=== PATIENT | male | born 1975 | race Two or more races ===

== ENCOUNTER 2020-10-23 12:22 | Outpatient (REF) | payer MEDICARE, MEDICAID, SELFPAY | END 2020-10-23 12:23 | disposition home or self-care (01) | LOC: HO.LAB 12:22 | PROVIDERS: Visit Provider Internal Medicine | DX: Z20.828 Contact with and (suspected) exposure to other viral communicable diseases (principal) | CPT/HCPCS: C9803; U0003 ==

== ENCOUNTER 2020-10-28 15:00 | Outpatient (REF) | payer MEDICARE, MEDICAID, SELFPAY | END 2020-10-28 15:01 | disposition home or self-care (01) | LOC: HO.LAB 15:00 | PROVIDERS: PCP Internal Medicine; Visit Provider Internal Medicine | DX: Z20.828 Contact with and (suspected) exposure to other viral communicable diseases (principal) | CPT/HCPCS: C9803; U0003 ==

== ENCOUNTER 2020-11-27 09:20 | Outpatient (REF) | payer OTHER, SELFPAY | END 2020-11-27 09:21 | disposition home or self-care (01) | LOC: HO.LAB 09:20 | PROVIDERS: Visit Provider Internal Medicine | DX: Z20.822 Contact with and (suspected) exposure to COVID-19 (principal) | CPT/HCPCS: 36415; C9803; U0003 ==

== ENCOUNTER 2020-11-29 09:43 | Emergency (ER) | payer OTHER, SELFPAY ==
[2020-11-29 09:49] VITALS: BP 147/82; PULSE 56; RESP 16; TEMP 37.1; O2SAT 98; BMI 32.5
--- NOTE | 2020-11-29 10:09 | ECG_ITS ---
Test Reason : CHEST TIGHTNESS Blood Pressure : / mmHG Vent. Rate : 053 BPM Atrial Rate : 053 BPM P-R Int : 140 ms QRS Dur : 100 ms QT Int : 392 ms P-R-T Axes : 057 -06 001 degrees QTc Int : 367 ms Sinus bradycardia Minimal voltage criteria for LVH, may be normal variant Borderline ECG When compared with ECG of 17-FEB-2020 08:32, No significant change was found Referred By: Jason Covarrubias Electronically Signed By:FRANCISCO POSEY MD
--- NOTE | 2020-11-29 10:09 | XR_ITS ---
EXAMINATION: XR CHEST CLINICAL INFORMATION: Cough COMPARISON: Previous chest x-ray and chest CT February 2020 TECHNIQUE: Frontal view of the chest was obtained. FINDINGS: No significant abnormality is noted involving the heart, lungs, mediastinum, bony thorax or soft tissues. XR/XR chest 1V IMPRESSION: Unremarkable examination.
--- NOTE | 2020-11-29 11:02 | ED.GENADULT ---
HPI - General Adult General Chief complaint: General Medical Stated complaint: covid +, cough, associated pain Time Seen by Provider: 11/29/20 10:09 Source: patient Mode of arrival: ambulatory Limitations: no limitations History of Present Illness HPI narrative: 45-year-old male who denies any significant past medical history reports that he was tested positive for COVID-19 7 days ago his symptoms were much more severe initially he started to feel better he did a follow-up call with his primary care doctor today told him he is feeling better however he still has a cough and with associated chest pain given his complaints during tele visit he was advised to come to the emergency room. He reports to me that he is overall feeling much better. Denies any fever or chills. No shortness of breath on exertion. Does report cough that continues now with slight sputum that is clear but no fever or chills. No abdominal pain nausea vomiting or diarrhea. Onset (ago): day(s) Severity: mild Pain Consistency: intermittent Associated symptoms: chest pain and cough Related Data Home Medications Medication Instructions Recorded Confirmed pantoprazole 20 mg tablet,delayed 20 mg PO DAILY 10/23/20 11/20/20 release Previous Rx's Medication Instructions Recorded glipizide 5 mg tablet 5 mg PO DAILY #90 tab 09/01/20 amoxicillin 250 mg capsule 250 mg PO Q8H #30 cap 10/23/20 cholecalciferol (vitamin D3) 1,250 1,250 mcg PO Q4W #90 cap 10/31/20 mcg (50,000 unit) capsule lisinopril 10 mg tablet 10 mg PO DAILY #90 tab 11/17/20 esomeprazole magnesium 40 mg 40 mg PO DAILY #30 cap 11/20/20 capsule,delayed release albuterol sulfate 2 inh INHALATION Q4-6H PRN #1 ea 11/29/20 azithromycin [Zithromax Z-Rufus] 250 mg PO DAILY 5 Days #6 tab 11/29/20 Allergies Allergy/AdvReac Type Severity Reaction Status Date / Time sulfamethoxazole Allergy Mild RASH Verified 11/20/20 11:34 [From BACTRIM] trimethoprim [From BACTRIM] Allergy Mild RASH Verified 11/20/20 11:34 fish Allergy Unknown rash, Verified 11/20/20 11:34 redness morphine [MORPHINE] Allergy Unknown NAUSEA & Verified 11/20/20 11:34 VOMITING, vomiting Sulfa (Sulfonamide Allergy Unknown rash Verified 11/20/20 11:34 Antibiotics) Fish Containing Products AdvReac Unknown WORSENS Verified 11/20/20 11:34 GOUT SYMPTOMS Review of Systems Review of Systems: Constitutional: No Weight loss, No Fever, No Chills, No Night Sweats, No Fatigue, No Malaise ENT/Mouth: No Hearing loss, No Ear Pain, No Nasal Congestion, No Sinus Pain, No Hoarseness, No sore throat, No Rhinorrhea, No Swallowing Difficulty Eyes: No Eye Pain, No Swelling, No Redness, No Foreign Body, No Discharge, No Vision Changes Cardiovascular: No SOB, No Dyspnea on Exertion, No Orthopnea, No Edema, No Palpitations Respiratory: + Cough, + Sputum, No Wheezing, No Smoke Exposure, No Dyspnea Gastrointestinal: No Nausea, No Vomiting, No Diarrhea, No Constipation, No abdominal Pain, No Hematochezia, No Melena Genitourinary: No Dysuria, No Urinary Frequency, No Hematuria, No Urinary Incontinence, No Urgency, No Flank Pain Musculoskeletal: No joint pain, No Myalgias, No Joint Swelling Skin: No Skin Lesions, No rash Neuro: No Weakness, No Numbness, No Paresthesias, No Loss of Consciousness, No Dizziness, No Headache Psych: No Social Issues Heme/Lymph: No Bruising, No Bleeding,No Lymphadenopathy Endocrine: No Polyuria, No Polydipsia, No Temperature Intolerance Yes all other systems are reviewed and are negative [facility] Past Medical History Medical History (Updated 11/29/20 @ 11:14 by Jason Covarrubias NP) Chronic GERD Surgical History H/O total hip arthroplasty H/O wrist surgery History of tonsillectomy History of umbilical hernia repair History of wisdom tooth extraction Family History Family History Father No problems noted. Mother Colon cancer Diabetes Hypertension Family/Other Diabetes Hypertension Social History Social History (Updated 11/20/20 @ 11:36 by Oscar Diaz) Alcohol intake: never Smoking Status: Never smoker Use of substances other than those prescribed or required for medical reasons: No Advance Directives: No Advance Directives Information Provided: No Physical Exam Vital Signs: Vital Signs: Last Vital Signs Temp 98.8 F 11/29/20 09:49 Pulse 56 11/29/20 09:49 Resp 16 11/29/20 09:49 BP 147/82 H 11/29/20 09:49 Pulse Ox 98 11/29/20 09:49 Body Mass Index 32.5 Reviewed Const: General: cooperative and healthy appearing; No acute distress or intoxicated appearing Nutritional Appearance: average body habitus Orientation/consciousness: patient oriented x3 HENMT: Head: Yes normal to inspection Ears: hearing grossly normal bilaterally Eyes: General: appearance normal, both eyes and all related structures Visual Guadalupe: normal visual guadalupe by confrontation Neck: Neck: Yes normal visual inspection, No positive Brudzinski's sign, No positive Kernig's sign and No tender Thyroid: Thyroid normal Chest: Chest palpation & inspection: normal inspection of the chest Resp: Effort & Inspection: normal respiratory effort Auscultation: clear to auscultation bilaterally Cardio: Jugular venous distension: no JVD Rate: regular rate Rhythm: regular rhythm Heart sounds: S1 normal heart sound present and S2 normal heart sound present GI: Inspection: Yes normal to inspection Percussion: Yes normal to percussion Auscultation: normal bowel sounds : General: Yes no CVA tenderness Back/Spine/Pelvis: Back: no CVA tenderness Skin: General skin exam: no rashes or lesions noted Neuro: General: patient oriented x3 Extrem: General: Yes normal to inspection Course Course Course Narrative: Has remained stable in the ED. He medically stable. Pulse ox remains at 99-100% on room air. EKG nondiagnostic, chest x-ray negative. Will discharge home with azithromycin, supportive Care return follow-up instructions. Agree with plan. Stable for discharge. Medical Decision Making [facility] Narrative Medical decision making narrative: In review 45-year-old male who reports no significant past medical history in review of chart he does have history of gastroesophageal reflux disease and surgical history of tonsillectomy, abdominal hernia repair, hip and wrist surgery who tested positive for COVID-19 6 days ago feels he is on the better side of his symptoms now feeling much better however has a cough with clear sputum with associated chest wall pain only during coughs called his primary care doctor today given his symptoms per patient told him that he might need a chest x-ray advised to come to the emergency room given Tuesday. He denies any pain or discomfort at this time states mild cough intermittently. He is hemodynamically stable upon arrival vitals show pulse ox of 99%, heart rate of 83 and respiratory rate of 14. Given his recent COVID diagnosis and continued cough will get a chest x-ray to rule out underlying developing viral/bacterial pneumonia, EKG. 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 FINDINGS: No significant abnormality is noted involving the heart, lungs, mediastinum, bony thorax or soft tissues. XR/XR chest 1V IMPRESSION: Unremarkable examination. 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 ECG Data Interpretation: Sinus bradycardia Minimal voltage criteria for LVH, may be normal variant Borderline ECG When compared with ECG of 17-FEB-2020 08:32, No significant change was f Discharge Plan Discharge Clinical Impression: Cough, COVID-19 Patient Disposition: Home, Self-Care Instructions: Acute Cough (ED), COVID-19 (Coronavirus Disease 2019) (ED) Additional Instructions: Drink plenty fluids Isolate yourself Social distancing Quarantine herself until at least 3 days symptom-free Return to the emergency room if any concerns or worsening symptoms otherwise follow-up with her primary care doctor as discussed Thank you Prescriptions: New azithromycin [Zithromax Z-Rufus] 250 mg tablet 250 mg PO DAILY 5 Days Qty: 6 RF: 0 albuterol sulfate 90 mcg/actuation aero powdr breath act w/sensor 2 inh inhalation Q4-6H PRN (Reason: shortness of breath or wheezing) Qty: 1 RF: 0 No Action glipizide 5 mg tablet 5 mg PO DAILY Qty: 90 RF: 8 cholecalciferol (vitamin D3) 1,250 mcg (50,000 unit) capsule 1,250 mcg PO Q4W Qty: 90 RF: 8 lisinopril 10 mg tablet 10 mg PO DAILY Qty: 90 RF: 8 esomeprazole magnesium [Nexium] 40 mg capsule,delayed release(DR/EC) 40 mg PO DAILY Qty: 30 RF: 8 pantoprazole 20 mg tablet,delayed release (DR/EC) 20 mg PO DAILY RF: 0 amoxicillin 250 mg capsule 250 mg PO Q8H Qty: 30 RF: 0 Referrals: Da Eckert MD [Primary Care Provider] - 1 week
== END 2020-11-29 11:31 | disposition home or self-care (01) ==
PROVIDERS: Emergency Provider Emergency Medicine Emergency Medical Services; PCP Internal Medicine
DX: U07.1 COVID-19 (principal); R05 Cough; R07.9 Chest pain, unspecified; Z79.899 Other long term (current) drug therapy
CPT/HCPCS: 71045; 93005; 99283

== ENCOUNTER 2020-12-01 02:42 | Emergency (ER) | payer OTHER, SELFPAY ==
[2020-12-01 02:53] VITALS: BP 138/75; PULSE 56; RESP 14; TEMP 37.3; O2SAT 97; BMI 36.0
--- NOTE | 2020-12-01 04:22 | ED_ITS ---
HPI - Abdominal Pain General Chief Complaint: Abdominal Pain Stated Complaint: Acid Reflux Time Seen by Provider: 12/01/20 03:56 Source: patient Mode of arrival: ambulatory History of Present Illness HPI narrative: This is a 45-year-old male with history GERD, and a diagnosed with COVID-19 approximately 6 days ago who presents with worsening epigastric burning that extends up into the central part of his chest that he states has not improved at all after being started on omeprazole. Otherwise, he denies fevers, chills, body aches, shortness of breath, but states that his abdomen has become more distended and he has been eating ?a lot of bananas?. Otherwise, he denies any urinary pain/burning/frequency, nausea, vomiting. Related Data Home Medications Medication Instructions Recorded Confirmed pantoprazole 20 mg tablet,delayed 20 mg PO DAILY 10/23/20 11/20/20 release Previous Rx's Medication Instructions Recorded glipizide 5 mg tablet 5 mg PO DAILY #90 tab 09/01/20 amoxicillin 250 mg capsule 250 mg PO Q8H #30 cap 10/23/20 cholecalciferol (vitamin D3) 1,250 1,250 mcg PO Q4W #90 cap 10/31/20 mcg (50,000 unit) capsule lisinopril 10 mg tablet 10 mg PO DAILY #90 tab 11/17/20 esomeprazole magnesium 40 mg 40 mg PO DAILY #30 cap 11/20/20 capsule,delayed release albuterol sulfate 2 inh INHALATION Q4-6H PRN #1 ea 11/29/20 azithromycin [Zithromax Z-Rufus] 250 mg PO DAILY 5 Days #6 tab 11/29/20 amoxicillin-pot clavulanate 1 tab PO Q12H 7 Days #14 tab 12/01/20 [Augmentin] doxycycline hyclate 100 mg PO BID 7 Days #14 cap 12/01/20 Allergies Allergy/AdvReac Type Severity Reaction Status Date / Time sulfamethoxazole Allergy Mild RASH Verified 11/20/20 11:34 [From BACTRIM] trimethoprim [From BACTRIM] Allergy Mild RASH Verified 11/20/20 11:34 fish Allergy Unknown rash, Verified 11/20/20 11:34 redness morphine [MORPHINE] Allergy Unknown NAUSEA & Verified 11/20/20 11:34 VOMITING, vomiting Sulfa (Sulfonamide Allergy Unknown rash Verified 11/20/20 11:34 Antibiotics) Fish Containing Products AdvReac Unknown WORSENS Verified 11/20/20 11:34 GOUT SYMPTOMS Review of Systems Review of Systems Pertinent positives and negatives as stated in HPI 10 point review of systems is otherwise negative. Physical Exam Vital Signs: Vital Signs: Last Vital Signs Temp 99.1 F 12/01/20 02:53 Pulse 56 12/01/20 02:53 Resp 14 12/01/20 02:53 BP 138/75 12/01/20 02:53 Pulse Ox 97 12/01/20 02:53 Body Mass Index 36.0 VITAL SIGNS: Reviewed. GENERAL: Well developed, well nourished, in no acute distress. HEAD: Normocephalic/atraumatic, EYES: PERRLA, EOMI EARS: Ext canals without abnormality NOSE: Nares patent bilateral OROPHARYNX: no oral lesions noted, posterior pharynx clear NECK: Supple, no adenopathy LUNGS: Normal breath sounds. No adventitious sounds or accessory muscle use. SpO2<97> CARDIOVASCULAR: Regular rate and rhythm without noted murmurs ABDOMEN: Obese, Soft, non-tender, non-distended with bowel sounds. NEUROLOGIC: Alert and oriented x 4. Course Course Course Narrative: This is a 45-year-old male with history and clinical presentation suggestive of poorly controlled acid reflux and possible constipation however will evaluate for intrathoracic pathology such as PE, pneumonia. Review of all investigations is negative for any acute findings other than el evated D-dimer with corresponding CT angio negative for evidence of VTE. CT scan is reading areas peripheral consolidation consistent with an infectious process and despite the lack leukocytosis patient will be discharged with a course of antibiotics. On re-evaluation patient states he has had good symptom control with the GI cocktail and despite being on omeprazole he will be recommended to start Mylanta prior to meals. MDM - Abdominal Pain Lab Data Result diagrams: 12/01/20 04:36 12/01/20 04:36 Labs: Lab Results 12/01/20 12/01/20 12/01/20 Range/Units 04:36 04:36 04:36 WBC 6.7 (4.8-10.8) X10*3/uL RBC 4.89 (4.60-5.80) X10*6/uL Hgb 14.1 (14.0-18.0) g/dl Hct 40.8 L (42-52) % MCV 83.4 (80-98) fL MCH 28.8 (27.0-33.0) pg MCHC 34.6 (31.0-36.0) g/dl RDW 12.5 (11.0-16.0) % Plt Count 224 (160-400) X10*3/uL MPV 10.3 (9.4-12.4) fL Immature Gran % (Auto) 0.1 (0.0-0.4) % Neut % (Auto) 64.0 (45-73) % Lymph % (Auto) 25.1 (20-40) % Taney % (Auto) 10.0 (2-11) % Eos % (Auto) 0.7 (0-4) % Baso % (Auto) 0.1 (0-2) % Lymph # (Auto) 1.7 (1.2-4.9) X10*3/uL Taney # (Auto) 0.7 (0.1-1.2) X10*3/uL Eos # (Auto) 0.1 (0.0-0.4) X10*3/uL Baso # (Auto) 0.0 (0.0-0.2) X10*3/uL Abs Immat Gran (auto) 0.01 (0.00-0.03) X10*3/uL Absolute Neuts (auto) 4.3 (2.0-8.3) X10*3/uL Absolute Nucleated RBC 0.000 (0.0-0.012) X10*3/uL Nucleated RBC % (auto) 0.0 (0.0-0.2) /100WBC D-Dimer 516 NG/ML Sodium 137 (135-145) mmol/L Potassium 4.4 (3.3-5.1) mmol/l Chloride 100 (96-108) mmol/L Carbon Dioxide 27 (22-29) mmol/L Anion Gap 14 (12-20) BUN 14 (9-16) mg/dL Creatinine 1.14 (0.5-1.4) mg/dL Estim Creat Clear Calc 92.2 Estimated GFR > 60 Random Glucose 179 H (60-115) mg/dL Calcium 9.2 (8.4-10.2) mg/dL Total Bilirubin 0.4 (0.0-1.0) mg/dL AST 24 (5-37) U/L ALT 39 (0-40) U/L Alkaline Phosphatase 63 (39-117) U/L Total Protein 7.4 (6.5-8.0) g/dL Albumin 4.4 (3.5-5.0) g/dL Lipase 21 (8-78) U/L Discharge Plan Discharge Clinical Impression: Chronic GERD Pneumonia Qualifiers: Pneumonia type: due to unspecified organism Laterality: bilateral Lung locati on: unspecified part of lung Qualified Code(s): J18.9 - Pneumonia, unspecified organism Patient Disposition: Home, Self-Care Instructions: Diet for Stomach Ulcers and Gastritis (ED), Gastroesophageal Reflux Disease (ED) Additional Instructions: 1. Recommend that she utilize [id number] Mylanta prior to each meal in addition to your prescribed omeprazole that you take daily. 2. Resume all home medications as prescribed. And follow-up with your primary care provider. Do not hesitate to return to the emergency room she developed acute worsening of your symptoms. Prescriptions: New doxycycline hyclate 100 mg capsule 100 mg PO BID 7 Days Qty: 14 RF: 0 amoxicillin-pot clavulanate [Augmentin] 875-125 mg tablet 1 tab PO Q12H 7 Days Qty: 14 RF: 0 No Action glipizide 5 mg tablet 5 mg PO DAILY Qty: 90 RF: 8 cholecalciferol (vitamin D3) 1,250 mcg (50,000 unit) capsule 1,250 mcg PO Q4W Qty: 90 RF: 8 lisinopril 10 mg tablet 10 mg PO DAILY Qty: 90 RF: 8 azithromycin [Zithromax Z-Rufus] 250 mg tablet 250 mg PO DAILY 5 Days Qty: 6 RF: 0 albuterol sulfate 90 mcg/actuation aero powdr breath act w/sensor 2 inh inhalation Q4-6H PRN (Reason: shortness of breath or wheezing) Qty: 1 RF: 0 esomeprazole magnesium [Nexium] 40 mg capsule,delayed release(DR/EC) 40 mg PO DAILY Qty: 30 RF: 8 pantoprazole 20 mg tablet,delayed release (DR/EC) 20 mg PO DAILY RF: 0 amoxicillin 250 mg capsule 250 mg PO Q8H Qty: 30 RF: 0 Referrals: Physician,Unknown [Primary Care Provider] - 2 days PMF Past Medical History Source: nursing notes reviewed Medical History Chronic GERD Diabetes Surgical History H/O total hip arthroplasty H/O wrist surgery History of tonsillectomy History of umbilical hernia repair History of wisdom tooth extraction Family History Family History Father No problems noted. Mother Colon cancer Diabetes Hypertension Family/Other Diabetes Hypertension Social History Social History Alcohol intake: current Alcohol intake frequency: a few times a week Alcohol type: beer and wine Smoking Status: Never smoker Use of substances other than those prescribed or required for medical reasons: No Advance Directives: No Advance Directives Information Provided: No
[2020-12-01] MEDS: Lidocaine HCl Viscous 2 % 15 ML SOLUTION 10 ML MUCOUS MEM (04:42)
[2020-12-01] MEDS: Magnesium Hydrox/Alum Hydrox 30 ML ORAL.SUSP PO (04:42)
[2020-12-01 04:43] LABS: Basophils Percent Auto 0.1 % (0-2); Eosinophils Absolute Auto 0.1 X10*3/uL (0.0-0.4); Eosinophils Percent Auto 0.7 % (0-4); Hematocrit 40.8 % (42-52); Hemoglobin 14.1 g/dl (14.0-18.0); Imm Gran Abs Auto 0.01 X10*3/uL (0.00-0.03); Imm Gran Pct Auto 0.1 % (0.0-0.4); Lymphocytes Absolute Auto 1.7 X10*3/uL (1.2-4.9); Lymphocytes Percent Auto 25.1 % (20-40); MANUAL DIFF FLAG NO; Mean Corpuscular HGB Conc 34.6 g/dl (31.0-36.0); Mean Corpuscular Hemoglobin 28.8 pg (27.0-33.0); Mean Corpuscular Volume 83.4 fL (80-98); Mean Platelet Volume 10.3 fL (9.4-12.4); Monocytes Absolute Auto 0.7 X10*3/uL (0.1-1.2); Neutrophils Absolute Auto 4.3 X10*3/uL (2.0-8.3); Platelet Count 224 X10*3/uL (160-400); Red Blood Count 4.89 X10*6/uL (4.60-5.80); Red Cell Distribution Width 12.5 % (11.0-16.0); White Blood Count 6.7 X10*3/uL (4.8-10.8)
[2020-12-01 04:52] LABS: D Dimer 516 NG/ML
--- NOTE | 2020-12-01 05:00 | CT_ITS ---
EXAMINATION: CTA CHEST WITH CONTRAST CT ABDOMEN AND PELVIS WITH CONTRAST CLINICAL INFORMATION: Abdominal pain. Chest pain. Shortness of breath. COMPARISON: The abdomen and pelvis 09/03/2014. Chest CTA 02/17/2020. TECHNIQUE: A routine CTA of the chest was performed per the pulmonary embolism protocol following the intravenous administration of 85 Omnipaque 350 contrast. Multiplanar reformats, thin slices, and MIP images were obtained. A subsequent CT of the abdomen and pelvis was then obtained. Multiplanar reformats were rendered and reviewed. This CT examination was performed using dose optimization techniques as appropriate, variously including the following: *Automated exposure control *Adjustment of mA and/or kV according to patient size (this includes techniques or standardized protocols for targeted exams where dose is matched to indication/reason for exam; i.e. extremities or head) *Use of iterative reconstruction technique DLP: 1307 mGy-cm FINDINGS: CHEST: VASCULAR: Contrast opacification of the pulmonary arteries are suboptimal but diagnostic. No filling defect is seen within the main or segmental branches. The subsegmental branches are difficult to evaluate. The pulmonary artery is normal in caliber. The thoracic aorta is normal in contour and caliber. No significant atheromatous changes seen. The great vessel origins are patent. The lower aspects of the common carotid and vertebral arteries are normally opacified. LUNG: The central airways are patent. A few scattered areas of peripheral consolidation are seen within the bilateral lungs largest in the anterior right upper lobe measuring 2.7 cm. No lobar consolidation is present. MEDIASTINUM: The mediastinum is normal. The central vascular structures are unremarkable. No hilar or mediastinal lymphadenopathy. CHEST WALL/AXILLA: Unremarkable. ABDOMEN: LIVER/GALLBLADDER/BILIARY SYSTEM: Diffuse hepatic steatosis with areas of fatty sparing noted. No hepatic mass or intrahepatic ductal dilatation. Gallbladder appears normal without inflammatory stranding. PANCREAS: Normal. SPLEEN: Normal. KIDNEYS/URETERS/URINARY BLADDER: There is no nephrolithiasis, hydroureteronephrosis, or solid renal parenchymal mass. The urinary bladder is normal in appearance. ADRENAL GLANDS: Normal. GASTROINTESTINAL TRACT: Scattered colonic diverticula are seen but without associated stranding/inflammation to suggest acute diverticulitis. There is no evidence of obstruction. The appendix is mildly enlarged measuring up to 7 mm but appears stable compared with 2013 and without fluid, stranding, or appendicolith. A few predominantly nonenlarged lymph nodes are seen within the right lower quadrant mesentery, similar to prior. Small hiatal hernia. PERITONEUM: No free fluid or free air. LYMPH NODES: There are no pathologically enlarged lymph nodes within the abdomen and pelvis. VASCULATURE: Widely patent. ABDOMINAL WALL: Mesh is seen within the anterior abdominal wall. There is anterior abdominal wall laxity without evidence of narrow necked hernia. There is asymmetric fatty atrophy of the left psoas muscle which is progressive compared with 2014. PELVIS: Urinary bladder is diffusely distended. Prostate gland is top normal in size. Small fat-containing bilateral inguinal hernias are seen, larger on the left, similar to prior. OSSEOUS STRUCTURES: The imaged osseous structures are normal in appearance. There are no fractures or destructive osseous lesions. Left hip arthroplasty noted. Multilevel degenerative changes in the lumbar spine. Mild retrolisthesis of L3 on L4 and L4 on L5. Scattered vacuum discs and Schmorl's nodes noted. CT/CT angio chest PE protocol IMPRESSION: Chest: Scattered areas of consolidation in a peripheral distribution throughout the bilateral lungs suggestive of an infectious process. No lobar consolidation or lung mass. No central or segmental pulmonary embolism identified. Abdomen/pelvis: No acute inflammatory changes. Hepatic steatosis. Colonic diverticulosis without acute diverticulitis. Small hiatal hernia. Progressive atrophy of the left psoas muscle compared with 2014.
[2020-12-01 05:17] LABS: Alanine Aminotransferase 39 U/L (0-40); Albumin Level 4.4 g/dL (3.5-5.0); Alkaline Phosphatase 63 U/L (39-117); Anion Gap 14 (12-20); Aspartate Amino Transferase 24 U/L (5-37); Bilirubin Total 0.4 mg/dL (0.0-1.0); Blood Urea Nitrogen 14 mg/dL (9-16); Calcium 9.2 mg/dL (8.4-10.2); Carbon Dioxide 27 mmol/L (22-29); Chloride 100 mmol/L (96-108); Creatinine Clr Calc Pharmacy 92.2; Estimated Glomerular Filt Rate > 60; Glucose Random 179 mg/dL (60-115); Lipase 21 U/L (8-78); Potassium 4.4 mmol/l (3.3-5.1); Sodium 137 mmol/L (135-145); Total Protein 7.4 g/dL (6.5-8.0)
[2020-12-01] MEDS: iohexoL 350 MG/ML 100 ML INFUS..BTL 85 ML IV (07:04)
== END 2020-12-01 08:12 | disposition home or self-care (01) ==
PROVIDERS: Emergency Provider Student in an Organized Health Care Education/Training Program
DX: K21.9 Gastro-esophageal reflux disease without esophagitis (principal); J18.9 Pneumonia, unspecified organism; Z86.16 Personal history of COVID-19; E11.9 Type 2 diabetes mellitus without complications
CPT/HCPCS: 36415; 71275; 74177; 80053; 83690; 85025; 85379; 99284; Q9967

== ENCOUNTER 2020-12-03 09:09 | Emergency (ER) | payer OTHER, SELFPAY ==
[2020-12-03 09:15] VITALS: BP 139/80; BP 160/82; PULSE 56; PULSE 64; RESP 17; TEMP 37; O2SAT 96; O2SAT 98; BMI 32.6
--- NOTE | 2020-12-03 09:16 | ED.CHESTPAIN ---
HPI - Chest Pain General Chief Complaint: Chest Pain Stated Complaint: CHEST TIGHTNESS,SOB,COVID + Time Seen by Provider: 12/03/20 09:16 Source: patient Mode of arrival: ambulatory Limitations: no limitations History of Present Illness HPI narrative: 45 yo male with HTN, DM - dx with COVID has had chest pain since then just had CTA 2 days ago negative for PE, ddimer 500 at that time, he thinks it might be his GERD - at this time states he still doesn't feel better at day 8. MD complaint: chest pain Onset (ago): day(s) (3) Timing of current episode: constant Onset: during rest Pain location: substernal and epigastric Pain radiation: none Severity: moderate Quality: aching Relieving factors: nothing Exacerbating factors: nothing Context: recent illness Associated symptoms: dyspnea Treatment prior to arrival: none Related Data Home Medications Medication Instructions Recorded Confirmed pantoprazole 20 mg tablet,delayed 20 mg PO DAILY 10/23/20 11/20/20 release Previous Rx's Medication Instructions Recorded glipizide 5 mg tablet 5 mg PO DAILY #90 tab 09/01/20 amoxicillin 250 mg capsule 250 mg PO Q8H #30 cap 10/23/20 cholecalciferol (vitamin D3) 1,250 1,250 mcg PO Q4W #90 cap 10/31/20 mcg (50,000 unit) capsule lisinopril 10 mg tablet 10 mg PO DAILY #90 tab 11/17/20 esomeprazole magnesium 40 mg 40 mg PO DAILY #30 cap 11/20/20 capsule,delayed release albuterol sulfate 2 inh INHALATION Q4-6H PRN #1 ea 11/29/20 azithromycin [Zithromax Z-Rufus] 250 mg PO DAILY 5 Days #6 tab 11/29/20 amoxicillin-pot clavulanate 1 tab PO Q12H 7 Days #14 tab 12/01/20 [Augmentin] doxycycline hyclate 100 mg PO BID 7 Days #14 cap 12/01/20 Allergies Allergy/AdvReac Type Severity Reaction Status Date / Time sulfamethoxazole Allergy Mild RASH Verified 11/20/20 11:34 [From BACTRIM] trimethoprim [From BACTRIM] Allergy Mild RASH Verified 11/20/20 11:34 fish Allergy Unknown rash, Verified 11/20/20 11:34 redness morphine [MORPHINE] Allergy Unknown NAUSEA & Verified 11/20/20 11:34 VOMITING, vomiting Sulfa (Sulfonamide Allergy Unknown rash Verified 11/20/20 11:34 Antibiotics) Fish Containing Products AdvReac Unknown WORSENS Verified 11/20/20 11:34 GOUT SYMPTOMS Review of Systems Review of Systems: Constitutional : No Weight loss, No Fever, No Chills ENT/Mouth : No sore throat, No Rhinorrhea Eyes: No Eye Pain, No Swelling Cardiovascular : pos Chest Pain, pos SOB, no Dyspnea on Exertion, No Orthopnea, No Edema, No Palpitations Respiratory : No Cough, No Sputum Gastrointestinal : no Nausea, No Vomiting, No Diarrhea, No abdominal Pain, No Hematochezia, No Melena Genitourinary : No Dysuria, No Urinary Frequency Musculoskeletal : No joint pain, No Myalgias, No Joint Swelling Skin : No Skin Lesions, No rash Neuro : No Weakness, No Numbness, No Dizziness, No Headache Psych : No Anxiety/Panic, No Depression Heme/Lymph: No Bruising, No Lymphadenopathy Endocrine : No Polyuria, No Polydipsia All other systems reviewed and are negative FOR[facility]LY [facility] Past Medical History Attestation statement: The following information was validated with the patient. Medical History Chronic GERD Diabetes Surgical History H/O total hip arthroplasty H/O wrist surgery History of tonsillectomy History of umbilical hernia repair History of wisdom tooth extraction Family History Family History Father No problems noted. Mother Colon cancer Diabetes Hypertension Family/Other Diabetes Hypertension Social History Social History Alcohol intake: current Alcohol intake frequency: does not drink Alcohol type: beer and wine Smoking Status: Never smoker Smoked in Last 30 Days: No Use of substances other than those prescribed or required for medical reasons: No Advance Directives: No Advance Directives Information Provided: No Physical Exam Vital Signs: Vital Signs: Last Vital Signs Temp 98.6 F 12/03/20 09:15 Pulse 55 12/03/20 10:39 Resp 12 12/03/20 10:39 BP 137/79 12/03/20 10:39 Pulse Ox 96 12/03/20 10:39 Body Mass Index 32.6 Appearance: Alert. Oriented X3. No acute distress. Eyes: Pupils equal, round and reactive to light. ENT: Pharynx normal. Neck: Normal inspection. Neck supple. CVS: Normal heart rate and rhythm. Pulses normal. Respiratory: No respiratory distress. Breath sounds normal. Abdomen: Soft and non-tender. Skin: Skin warm and dry. Normal skin color. Normal skin turgor. Extremities: No lower extremity edema. No calf ttp Neuro: Oriented X 3. No motor deficit. No sensory deficit. Course Course Course Narrative: no sig rise in ddimer low suspicion for PE given recent CTA with same ddimer value trop flat stable for DC MDM - Chest Pain MDM Narrative Medical decision making narrative: 45 yo male with known COVID who has chest pain and dyspnea just had full workup on 12/01 with negative CTA, at this time his symptoms do seem viral he is in no resp distress, clear lungs, not toxic, I did discuss with the patient that he likely will feel ill for weeks given his recent diagnosis. labs, repeat ddimer to see elevation, troponin x1, CXR, GI cocktail. Lab Data Result diagrams: 12/03/20 09:30 12/03/20 09:30 Labs: Lab Results 12/03/20 12/03/20 12/03/20 Range/Units 09:30 09:30 09:30 WBC 5.5 (4.8-10.8) X10*3/uL RBC 4.95 (4.60-5.80) X10*6/uL Hgb 14.2 (14.0-18.0) g/dl Hct 41.5 L (42-52) % MCV 83.8 (80-98) fL MCH 28.7 (27.0-33.0) pg MCHC 34.2 (31.0-36.0) g/dl RDW 12.6 (11.0-16.0) % Plt Count 212 (160-400) X10*3/uL MPV 9.8 (9.4-12.4) fL Immature Gran % (Auto) 0.2 (0.0-0.4) % Neut % (Auto) 49.3 (45-73) % Lymph % (Auto) 41.8 H (20-40) % [place] % (Auto) 8.0 (2-11) % Eos % (Auto) 0.7 (0-4) % Baso % (Auto) 0.0 (0-2) % Lymph # (Auto) 2.3 (1.2-4.9) X10*3/uL [place] # (Auto) 0.4 (0.1-1.2) X10*3/uL Eos # (Auto) 0.0 (0.0-0.4) X10*3/uL Baso # (Auto) 0.0 (0.0-0.2) X10*3/uL Abs Immat Gran (auto) 0.01 (0.00-0.03) X10*3/uL Absolute Neuts (auto) 2.7 (2.0-8.3) X10*3/uL Absolute Nucleated RBC 0.000 (0.0-0.012) X10*3/uL Nucleated RBC % (auto) 0.0 (0.0-0.2) /100WBC D-Dimer 531 NG/ML Sodium 138 (135-145) mmol/L Potassium 4.2 (3.3-5.1) mmol/l Chloride 102 (96-108) mmol/L Carbon Dioxide 27 (22-29) mmol/L Anion Gap 13 (12-20) BUN 12 (9-16) mg/dL Creatinine 1.02 (0.5-1.4) mg/dL Estim Creat Clear Calc 104.4 Estimated GFR > 60 Random Glucose 179 H (60-115) mg/dL Calcium 9.0 (8.4-10.2) mg/dL Magnesium 2.0 (1.6-2.6) mg/dL Total Bilirubin 0.4 (0.0-1.0) mg/dL Direct Bilirubin 0.2 (0.0-0.5) mg/dL AST 29 (5-37) U/L ALT 42 H (0-40) U/L Alkaline Phosphatase 67 (39-117) U/L Troponin I High Sens (<3.5-35.0) ng/L Total Protein 7.2 (6.5-8.0) g/dL Albumin 4.3 (3.5-5.0) g/dL Lipase 17 (8-78) U/L 12/03/20 12/03/20 Range/Units 09:30 11:57 WBC (4.8-10.8) X10*3/uL RBC (4.60-5.80) X10*6/uL Hgb (14.0-18.0) g/dl Hct (42-52) % MCV (80-98) fL MCH (27.0-33.0) pg MCHC (31.0-36.0) g/dl RDW (11.0-16.0) % Plt Count (160-400) X10*3/uL MPV (9.4-12.4) fL Immature Gran % (Auto) (0.0-0.4) % Neut % (Auto) (45-73) % Lymph % (Auto) (20-40) % [place] % (Auto) (2-11) % Eos % (Auto) (0-4) % Baso % (Auto) (0-2) % Lymph # (Auto) (1.2-4.9) X10*3/uL [place] # (Auto) (0.1-1.2) X10*3/uL Eos # (Auto) (0.0-0.4) X10*3/uL Baso # (Auto) (0.0-0.2) X10*3/uL Abs Immat Gran (auto) (0.00-0.03) X10*3/uL Absolute Neuts (auto) (2.0-8.3) X10*3/uL Absolute Nucleated RBC (0.0-0.012) X10*3/uL Nucleated RBC % (auto) (0.0-0.2) /100WBC D-Dimer NG/ML Sodium (135-145) mmol/L Potassium (3.3-5.1) mmol/l Chloride (96-108) mmol/L Carbon Dioxide (22-29) mmol/L Anion Gap (12-20) BUN (9-16) mg/dL Creatinine (0.5-1.4) mg/dL Estim Creat Clear Calc Estimated GFR Random Glucose (60-115) mg/dL Calcium (8.4-10.2) mg/dL Magnesium (1.6-2.6) mg/dL Total Bilirubin (0.0-1.0) mg/dL Direct Bilirubin (0.0-0.5) mg/dL AST (5-37) U/L ALT (0-40) U/L Alkaline Phosphatase (39-117) U/L Troponin I High Sens 12.4 12.7 (<3.5-35.0) ng/L Total Protein (6.5-8.0) g/dL Albumin (3.5-5.0) g/dL Lipase (8-78) U/L ECG Data ECG #1: Attestation: I personally reviewed and interpreted this ECG as follows: ECG interpretation date: 12/03/20 ECG interpretation time: 09:22 Interpretation: Rate: 56 Rhythm: sinus bradycardia [place]: left, LVH Normal P waves. Normal BABAR. Normal QRS complex. ST T wave : normal, no VEENA qTC: normal prior studies: no acute ischemia, artifact noted The study has been interpreted contemporaneously by me. . Discharge Plan Discharge Clinical Impression: COVID-19, Atypical chest pain Patient Disposition: Home, Self-Care Instructions: Chest Pain (ED), COVID-19 (Coronavirus Disease 2019) (ED) Additional Instructions: return to ED for any worsening symptoms or concerns Prescriptions: No Action glipizide 5 mg tablet 5 mg PO DAILY Qty: 90 RF: 8 cholecalciferol (vitamin D3) 1,250 mcg (50,000 unit) capsule 1,250 mcg PO Q4W Qty: 90 RF: 8 lisinopril 10 mg tablet 10 mg PO DAILY Qty: 90 RF: 8 doxycycline hyclate 100 mg capsule 100 mg PO BID 7 Days Qty: 14 RF: 0 amoxicillin-pot clavulanate [Augmentin] 875-125 mg tablet 1 tab PO Q12H 7 Days Qty: 14 RF: 0 azithromycin [Zithromax Z-Rufus] 250 mg tablet 250 mg PO DAILY 5 Days Qty: 6 RF: 0 albuterol sulfate 90 mcg/actuation aero powdr breath act w/sensor 2 inh inhalation Q4-6H PRN (Reason: shortness of breath or wheezing) Qty: 1 RF: 0 esomeprazole magnesium [Nexium] 40 mg capsule,delayed release(DR/EC) 40 mg PO DAILY Qty: 30 RF: 8 pantoprazole 20 mg tablet,delayed release (DR/EC) 20 mg PO DAILY RF: 0 amoxicillin 250 mg capsule 250 mg PO Q8H Qty: 30 RF: 0 Referrals: Da Eckert MD [Primary Care Provider] - 1 week (if not better) Stand Alone Forms: Work/School Release
--- NOTE | 2020-12-03 09:18 | ECG_ITS ---
Test Reason : CP Blood Pressure : / mmHG Vent. Rate : 056 BPM Atrial Rate : 056 BPM P-R Int : 144 ms QRS Dur : 100 ms QT Int : 396 ms P-R-T Axes : 059 -02 011 degrees QTc Int : 382 ms Sinus bradycardia Minimal voltage criteria for LVH, may be normal variant Borderline ECG No previous ECGs available Referred By: Dawn Perales Electronically Signed By:DARIAN GARDNER
--- NOTE | 2020-12-03 09:18 | XR_ITS ---
EXAMINATION: XR CHEST CLINICAL INFORMATION: Chest pain. COMPARISON: None TECHNIQUE: Frontal view of the chest was obtained. FINDINGS: The lungs are well-expanded with prominent interstitial markings but no acute pneumonic process. Heart size and pulmonary vascularity is normal. No gross bony abnormality seen. XR/XR chest 1V IMPRESSION: Unremarkable chest.
[2020-12-03] MEDS: Lidocaine HCl Viscous 2 % 15 ML SOLUTION MUCOUS MEM (09:23)
[2020-12-03] MEDS: Magnesium Hydrox/Alum Hydrox 30 ML ORAL.SUSP PO (09:23)
[2020-12-03 09:34] LABS: MANUAL DIFF FLAG NO
[2020-12-03 09:37] LABS: Eosinophils Percent Auto 0.7 % (0-4); Hematocrit 41.5 % (42-52); Hemoglobin 14.2 g/dl (14.0-18.0); Imm Gran Abs Auto 0.01 X10*3/uL (0.00-0.03); Imm Gran Pct Auto 0.2 % (0.0-0.4); Lymphocytes Absolute Auto 2.3 X10*3/uL (1.2-4.9); Lymphocytes Percent Auto 41.8 % (20-40); Mean Corpuscular HGB Conc 34.2 g/dl (31.0-36.0); Mean Corpuscular Hemoglobin 28.7 pg (27.0-33.0); Mean Corpuscular Volume 83.8 fL (80-98); Mean Platelet Volume 9.8 fL (9.4-12.4); Monocytes Absolute Auto 0.4 X10*3/uL (0.1-1.2); Neutrophils Absolute Auto 2.7 X10*3/uL (2.0-8.3); Neutrophils Percent Auto 49.3 % (45-73); Platelet Count 212 X10*3/uL (160-400); Red Blood Count 4.95 X10*6/uL (4.60-5.80); Red Cell Distribution Width 12.6 % (11.0-16.0); White Blood Count 5.5 X10*3/uL (4.8-10.8)
[2020-12-03 09:44] LABS: D Dimer 531 NG/ML
[2020-12-03 10:09] LABS: Alanine Aminotransferase 42 U/L (0-40); Albumin Level 4.3 g/dL (3.5-5.0); Alkaline Phosphatase 67 U/L (39-117); Anion Gap 13 (12-20); Aspartate Amino Transferase 29 U/L (5-37); Bilirubin Direct 0.2 mg/dL (0.0-0.5); Bilirubin Total 0.4 mg/dL (0.0-1.0); Blood Urea Nitrogen 12 mg/dL (9-16); Carbon Dioxide 27 mmol/L (22-29); Chloride 102 mmol/L (96-108); Creatinine Clr Calc Pharmacy 104.4; Estimated Glomerular Filt Rate > 60; Glucose Random 179 mg/dL (60-115); Lipase 17 U/L (8-78); Potassium 4.2 mmol/l (3.3-5.1); Sodium 138 mmol/L (135-145); Total Protein 7.2 g/dL (6.5-8.0)
[2020-12-03 10:15] LABS: Troponin-I High Sensitivity 12.4 ng/L (<3.5-35.0)
[2020-12-03 10:39] VITALS: BP 137/79; PULSE 55; RESP 12; O2SAT 96
[2020-12-03 12:32] LABS: Troponin-I High Sensitivity 12.7 ng/L (<3.5-35.0)
== END 2020-12-03 12:52 | disposition home or self-care (01) ==
PROVIDERS: Emergency Provider Emergency Medicine; PCP Internal Medicine
DX: U07.1 COVID-19 (principal); R07.9 Chest pain, unspecified; Z79.899 Other long term (current) drug therapy
CPT/HCPCS: 36415; 71045; 80048; 80076; 83690; 83735; 84484; 85025; 85379; 93005; 99284

== ENCOUNTER 2020-12-07 22:47 | Emergency (ER) | payer OTHER, SELFPAY ==
[2020-12-07 22:56] VITALS: BP 148/82; PULSE 60; PULSE 64; RESP 18; TEMP 36.8; O2SAT 98; O2SAT 99; BMI 32.6
--- NOTE | 2020-12-07 22:57 | ED.URI ---
HPI - URI/Sore Throat General Chief Complaint: Upper Respiratory Symptoms Stated Complaint: congestion covid Time Seen by Provider: 12/07/20 22:57 Source: patient and EMS Mode of arrival: EMS Limitations: no limitations History of Present Illness HPI Narrative: Dx with COVID on 11/27 has been seen twice since then negative EKG, CXR on 12/03 with negative CTA on 12/01 back again today with c/o bad heartburn, dry cough, still doesn't feel back to baseline, states his throat is sore MD elicited complaint: cough and other (acid reflux) Pertinent past history: other (COVID, GERD not on any medications they don't work ) Onset (ago): day(s) (several ) Consistency: constant Severity: moderate Description of mucous: clear Able to tolerate fluids by mouth: Yes Exacerbating factors: swallowing Relieving factors: nothing Associated symptoms: cough Treatments prior to arrival: none Related Data Home Medications Medication Instructions Recorded Confirmed pantoprazole 20 mg tablet,delayed 20 mg PO DAILY 10/23/20 11/20/20 release Previous Rx's Medication Instructions Recorded glipizide 5 mg tablet 5 mg PO DAILY #90 tab 09/01/20 amoxicillin 250 mg capsule 250 mg PO Q8H #30 cap 10/23/20 cholecalciferol (vitamin D3) 1,250 1,250 mcg PO Q4W #90 cap 10/31/20 mcg (50,000 unit) capsule lisinopril 10 mg tablet 10 mg PO DAILY #90 tab 11/17/20 esomeprazole magnesium 40 mg 40 mg PO DAILY #30 cap 11/20/20 capsule,delayed release albuterol sulfate 2 inh INHALATION Q4-6H PRN #1 ea 11/29/20 azithromycin [Zithromax Z-Rufus] 250 mg PO DAILY 5 Days #6 tab 11/29/20 amoxicillin-pot clavulanate 1 tab PO Q12H 7 Days #14 tab 12/01/20 [Augmentin] doxycycline hyclate 100 mg PO BID 7 Days #14 cap 12/01/20 omeprazole 40 mg PO BID 30 Days #60 cap 12/08/20 prednisone 20 mg PO DAILY 5 Days #5 tab 12/08/20 sucralfate [Carafate] 1 g PO TID 28 Days #840 ml 12/08/20 Allergies Allergy/AdvReac Type Severity Reaction Status Date / Time sulfamethoxazole Allergy Mild RASH Verified 12/07/20 22:56 [From BACTRIM] trimethoprim [From BACTRIM] Allergy Mild RASH Verified 12/07/20 22:56 fish Allergy Unknown rash, Verified 12/07/20 22:56 redness morphine [MORPHINE] Allergy Unknown NAUSEA & Verified 12/07/20 22:56 VOMITING, vomiting Sulfa (Sulfonamide Allergy Unknown rash Verified 12/07/20 22:56 Antibiotics) Fish Containing Products AdvReac Unknown WORSENS Verified 12/07/20 22:56 GOUT SYMPTOMS Review of Systems Review of Systems: Constitutional : No Weight loss, No Fever, No Chills, No Fatigue, No Malaise ENT/Mouth : pos sore throat, No Rhinorrhea Eyes: No Eye Pain, No Swelling, No Redness Cardiovascular : No Chest Pain, No SOB, No Dyspnea on Exertion, No Orthopnea, No Edema, No Palpitations Respiratory : pos Cough, No Sputum, No Wheezing Gastrointestinal : No Nausea, No Vomiting, No Diarrhea, No Constipation, No abdominal Pain, No Hematochezia, No Melena Genitourinary : No Dysuria, No Urinary Frequency, No Hematuria, Musculoskeletal : No joint pain, No Myalgias, No Joint Swelling Skin : No Skin Lesions, No rash Neuro : No Weakness, No Numbness, No Dizziness, No Headache Psych : No Anxiety/Panic, No Depression Heme/Lymph: No Bruising, No Bleeding,No Lymphadenopathy Endocrine : No Polyuria, No Polydipsia All other systems reviewed and are negative PMFSH Past Medical History Attestation statement: The following information was validated with the patient. Medical History Chronic GERD Diabetes Surgical History H/O total hip arthroplasty H/O wrist surgery History of tonsillectomy History of umbilical hernia repair History of wisdom tooth extraction Family History Family History Father No problems noted. Mother Colon cancer Diabetes Hypertension Family/Other Diabetes Hypertension Social History Social History Alcohol intake: current Alcohol intake frequency: does not drink Alcohol type: beer and wine Smoking Status: Never smoker Advance Directives: No Advance Directives Information Provided: No Physical Exam Vital Signs: Vital Signs: Last Vital Signs Temp 98.2 F 12/07/20 22:56 Pulse 53 12/07/20 23:45 Resp 18 12/07/20 23:45 BP 145/77 H 12/07/20 23:45 Pulse Ox 97 12/07/20 23:45 Body Mass Index 32.6 Appearance: Alert. Oriented X3. No acute distress. Eyes: Pupils equal, round and reactive to light. ENT: Pharynx mild erythema, no swelling, no patches Neck: Normal inspection. Neck supple. no lymphadenopathy CVS: Normal heart rate and rhythm. Pulses normal. Respiratory: No respiratory distress. Breath sounds normal. Abdomen: Soft and non-tender. Skin: Skin warm and dry. Normal skin color. Normal skin turgor. Extremities: No lower extremity edema. No calf ttp Neuro: Oriented X 3. No motor deficit. No sensory deficit. Course Course Course Narrative: NO HYPOXIA, the patient feels okay now agrees he needs to go back to his GI for endoscopy, will start on PPI and carafate, low dose steroids for lung irritation MDM - URI/Sore Throat MDM Narrative Medical decision making narrative: 45 yo male with recent COVID dx here with c/o dry cough, worsening GERD - not taking any medications despite his symptoms because they don't work , at this time will obtain strep swab, CXR, O2 stable, just had extensive workup including CTA and CT abdomen with same symptoms - will start on PPI again, give GI cocktail, add carafate Discharge Plan Discharge Clinical Impression: COVID-19, Chronic GERD Patient Disposition: Home, Self-Care Instructions: Gastroesophageal Reflux Disease (ED) Additional Instructions: return to ED for any worsening symptoms or concerns CALL YOUR GI DOCTOR YOU NEED TO HAVE AN ENDOSCOPY Prescriptions: New omeprazole 40 mg capsule,delayed release(DR/EC) 40 mg PO BID 30 Days Qty: 60 RF: 0 sucralfate [Carafate] 100 mg/mL suspension 1 g PO TID 28 Days Qty: 840 RF: 0 prednisone 20 mg tablet 20 mg PO DAILY 5 Days Qty: 5 RF: 0 No Action glipizide 5 mg tablet 5 mg PO DAILY Qty: 90 RF: 8 cholecalciferol (vitamin D3) 1,250 mcg (50,000 unit) capsule 1,250 mcg PO Q4W Qty: 90 RF: 8 lisinopril 10 mg tablet 10 mg PO DAILY Qty: 90 RF: 8 doxycycline hyclate 100 mg capsule 100 mg PO BID 7 Days Qty: 14 RF: 0 amoxicillin-pot clavulanate [Augmentin] 875-125 mg tablet 1 tab PO Q12H 7 Days Qty: 14 RF: 0 azithromycin [Zithromax Z-Rufus] 250 mg tablet 250 mg PO DAILY 5 Days Qty: 6 RF: 0 albuterol sulfate 90 mcg/actuation aero powdr breath act w/sensor 2 inh inhalation Q4-6H PRN (Reason: shortness of breath or wheezing) Qty: 1 RF: 0 esomeprazole magnesium [Nexium] 40 mg capsule,delayed release(DR/EC) 40 mg PO DAILY Qty: 30 RF: 8 pantoprazole 20 mg tablet,delayed release (DR/EC) 20 mg PO DAILY RF: 0 amoxicillin 250 mg capsule 250 mg PO Q8H Qty: 30 RF: 0
--- NOTE | 2020-12-07 23:06 | XR_ITS ---
EXAMINATION: XR CHEST CLINICAL INFORMATION: Cough. COMPARISON: Chest x-ray 12/03/2020 TECHNIQUE: Frontal view of the chest was obtained. FINDINGS: Lungs are well-expanded with no acute pneumonic consolidation seen. Mild increased fine interstitial markings are seen. No pleural effusion. The heart size and pulmonary vascularity is normal. XR/XR chest 1V IMPRESSION: No acute pneumonic process seen. Increased fine interstitial markings are seen. No major change from 12/03/2020
[2020-12-07] MEDS: Omeprazole 40 MG CAPSULE.DR PO (23:42)
[2020-12-07] MEDS: Magnesium Hydrox/Alum Hydrox 30 ML ORAL.SUSP PO (23:43)
[2020-12-07] MEDS: Lidocaine HCl Viscous 2 % 15 ML SOLUTION MUCOUS MEM (23:43)
[2020-12-07 23:45] VITALS: BP 145/77; PULSE 53; RESP 18; O2SAT 97
== END 2020-12-08 00:36 | disposition home or self-care (01) ==
PROVIDERS: Emergency Provider Emergency Medicine
DX: U07.1 COVID-19 (principal); K21.9 Gastro-esophageal reflux disease without esophagitis
CPT/HCPCS: 71045; 87071; 87880; 99283; 99284

== ENCOUNTER 2021-01-03 07:17 | Outpatient (REF) | payer OTHER, SELFPAY ==
[2021-01-03 07:56] LABS: MANUAL DIFF FLAG NO
[2021-01-03 08:01] LABS: Basophils Percent Auto 0.6 % (0-2); Eosinophils Absolute Auto 0.1 X10*3/uL (0.0-0.4); Eosinophils Percent Auto 1.8 % (0-4); Hematocrit 41.8 % (42-52); Hemoglobin 14.3 g/dl (14.0-18.0); Imm Gran Abs Auto 0.01 X10*3/uL (0.00-0.03); Imm Gran Pct Auto 0.1 % (0.0-0.4); Lymphocytes Absolute Auto 2.9 X10*3/uL (1.2-4.9); Lymphocytes Percent Auto 43.1 % (20-40); Mean Corpuscular HGB Conc 34.2 g/dl (31.0-36.0); Mean Corpuscular Hemoglobin 28.8 pg (27.0-33.0); Mean Corpuscular Volume 84.1 fL (80-98); Mean Platelet Volume 10.5 fL (9.4-12.4); Monocytes Absolute Auto 0.5 X10*3/uL (0.1-1.2); Monocytes Percent Auto 7.5 % (2-11); Neutrophils Absolute Auto 3.2 X10*3/uL (2.0-8.3); Neutrophils Percent Auto 46.9 % (45-73); Platelet Count 273 X10*3/uL (160-400); Red Blood Count 4.97 X10*6/uL (4.60-5.80); Red Cell Distribution Width 13.1 % (11.0-16.0); White Blood Count 6.7 X10*3/uL (4.8-10.8)
[2021-01-03 08:13] LABS: Estimated Average Glucose 157 mg/dL; Hemoglobin A1c % 7.1 %
[2021-01-03 08:29] LABS: Alanine Aminotransferase 28 U/L (0-40); Albumin Level 4.4 g/dL (3.5-5.0); Alkaline Phosphatase 74 U/L (39-117); Anion Gap 12 (12-20); Aspartate Amino Transferase 20 U/L (5-37); Bilirubin Total 0.6 mg/dL (0.0-1.0); Blood Urea Nitrogen 15 mg/dL (9-16); Calcium 9.5 mg/dL (8.4-10.2); Carbon Dioxide 30 mmol/L (22-29); Chloride 103 mmol/L (96-108); Cholesterol 216 mg/dL; Estimated Glomerular Filt Rate > 60; Glucose Fasting 139 mg/dL (60-99); HDL Cholesterol 39 mg/dL; LDL Cholesterol Calculated 131 mg/dl; Potassium 4.2 mmol/L (3.3-5.1); Sodium 141 mmol/L (135-145); Total Protein 7.4 g/dL (6.5-8.0); Triglycerides 230 mg/dL
== END 2021-01-03 07:18 | disposition home or self-care (01) ==
LOC: HO.LAB 07:17
PROVIDERS: PCP Internal Medicine; Visit Provider Internal Medicine
DX: Z00.00 Encounter for general adult medical examination without abnormal findings (principal); E11.9 Type 2 diabetes mellitus without complications
CPT/HCPCS: 36415; 80053; 80061; 83036; 85025

== ENCOUNTER 2021-03-19 21:46 | Emergency (ER) | payer OTHER, SELFPAY ==
[2021-03-19 21:53] VITALS: BP 129/77; PULSE 62; RESP 18; TEMP 36; O2SAT 96; BMI 32.1
[2021-03-19 22:00] VITALS: BP 120/70; PULSE 68; RESP 18; TEMP 36.6; O2SAT 98
--- NOTE | 2021-03-19 22:32 | ED.URI ---
HPI - URI/Sore Throat General Chief Complaint: Dizziness Stated Complaint: Swelling of the face/Dizziness Time Seen by Provider: 03/19/21 22:32 Source: patient Mode of arrival: ambulatory Limitations: no limitations History of Present Illness HPI Narrative: Patient feel congested for last few days had received [employer] vaccine last week no shortness of air no cough yellowish nasal discharge patient in the morning feels dizzy no fever MD elicited complaint: nasal congestion Related Data Home Medications Medication Instructions Recorded Confirmed pantoprazole 20 mg tablet,delayed 20 mg PO DAILY 10/23/20 03/27/21 release Previous Rx's Medication Instructions Recorded glipizide 5 mg tablet 5 mg PO DAILY #90 tab 09/01/20 amoxicillin 250 mg capsule 250 mg PO Q8H #30 cap 10/23/20 lisinopril 10 mg tablet 10 mg PO DAILY #90 tab 11/17/20 esomeprazole magnesium 40 mg 40 mg PO DAILY #30 cap 11/20/20 capsule,delayed release albuterol sulfate 2 inh INHALATION Q4-6H PRN #1 ea 11/29/20 azithromycin [Zithromax Z-Rufus] 250 mg PO DAILY 5 Days #6 tab 11/29/20 amoxicillin-pot clavulanate 1 tab PO Q12H 7 Days #14 tab 12/01/20 [Augmentin] doxycycline hyclate 100 mg PO BID 7 Days #14 cap 12/01/20 omeprazole 40 mg PO BID 30 Days #60 cap 12/08/20 prednisone 20 mg PO DAILY 5 Days #5 tab 12/08/20 sucralfate [Carafate] 1 g PO TID 28 Days #840 ml 12/08/20 cholecalciferol (vitamin D3) 1,250 1,250 mcg PO Q4W #90 cap 12/30/20 mcg (50,000 unit) capsule amoxicillin-pot clavulanate 1 tab PO BID #20 tab 03/19/21 [Augmentin] prednisone 40 mg PO DAILY #10 tab 03/19/21 ciprofloxacin HCl 250 mg tablet 250 mg PO BID #10 tab 03/26/21 ciprofloxacin HCl 250 mg tablet 250 mg PO BID #10 tab 03/26/21 Allergies Allergy/AdvReac Type Severity Reaction Status Date / Time sulfamethoxazole Allergy Mild RASH Verified 03/26/21 15:32 [From BACTRIM] trimethoprim [From BACTRIM] Allergy Mild RASH Verified 03/26/21 15:32 fish Allergy Unknown rash, Verified 03/26/21 15:32 redness morphine [MORPHINE] Allergy Unknown NAUSEA & Verified 03/26/21 15:32 VOMITING, vomiting Sulfa (Sulfonamide Allergy Unknown rash Verified 03/26/21 15:32 Antibiotics) Fish Containing Products AdvReac Unknown WORSENS Verified 03/26/21 15:32 GOUT SYMPTOMS Review of Systems Review of Systems: Yes all other systems are reviewed and are negative [facility] Past Medical History Medical History Chronic GERD Diabetes Surgical History H/O total hip arthroplasty H/O wrist surgery History of tonsillectomy History of umbilical hernia repair History of wisdom tooth extraction Family History Family History Father No problems noted. Mother Colon cancer Diabetes Hypertension Family/Other Diabetes Hypertension Social History Social History Alcohol intake: never Physical Exam Vital Signs: Vital Signs: Last Vital Signs Temp 97.8 F 03/19/21 22:00 Pulse 68 03/19/21 22:00 Resp 18 03/19/21 22:00 BP 120/70 03/19/21 22:00 Pulse Ox 98 03/19/21 22:00 Body Mass Index 32.1 Const: General: comfortable HENMT: Head: Yes normal to inspection Ears: hearing grossly normal bilaterally General nose exam: Abnormal mucous membranes and turbinates present boggy and erythematous and Nasal discharge present mucoid Face and sinus: Yes normal facial exam Mouth: Normal oral and palatal mucosa present Resp: Effort & Inspection: normal respiratory effort Auscultation: clear to auscultation bilaterally Cardio: Jugular venous distension: no JVD Palpation: normal PMI Rate: regular rate Rhythm: regular rhythm Heart sounds: S1 normal heart sound present and S2 normal heart sound present Discharge Plan Discharge Clinical Impression: Sinusitis Qualifiers: Sinusitis location: pansinusitis Chronicity: subacute Qualified Code(s): J01.40 - Acute pansinusitis, unspecified Patient Disposition: Home, Self-Care Instructions: Rhinosinusitis (ED) Additional Instructions: Take medication as prescribed. Follow with PCP if not better Prescriptions: New amoxicillin-pot clavulanate [Augmentin] 875-125 mg tablet 1 tab PO BID Qty: 20 RF: 0 prednisone 20 mg tablet 40 mg PO DAILY Qty: 10 RF: 0 No Action glipizide 5 mg tablet 5 mg PO DAILY Qty: 90 RF: 8 lisinopril 10 mg tablet 10 mg PO DAILY Qty: 90 RF: 8 doxycycline hyclate 100 mg capsule 100 mg PO BID 7 Days Qty: 14 RF: 0 amoxicillin-pot clavulanate [Augmentin] 875-125 mg tablet 1 tab PO Q12H 7 Days Qty: 14 RF: 0 azithromycin [Zithromax Z-Rufus] 250 mg tablet 250 mg PO DAILY 5 Days Qty: 6 RF: 0 albuterol sulfate 90 mcg/actuation aero powdr breath act w/sensor 2 inh inhalation Q4-6H PRN (Reason: shortness of breath or wheezing) Qty: 1 RF: 0 omeprazole 40 mg capsule,delayed release(DR/EC) 40 mg PO BID 30 Days Qty: 60 RF: 0 sucralfate [Carafate] 100 mg/mL suspension 1 g PO TID 28 Days Qty: 840 RF: 0 prednisone 20 mg tablet 20 mg PO DAILY 5 Days Qty: 5 RF: 0 esomeprazole magnesium [Nexium] 40 mg capsule,delayed release(DR/EC) 40 mg PO DAILY Qty: 30 RF: 8 ciprofloxacin HCl [Cipro] 250 mg tablet 250 mg PO BID Qty: 10 RF: 0 ciprofloxacin HCl [Cipro] 250 mg tablet 250 mg PO BID Qty: 10 RF: 0 pantoprazole 20 mg tablet,delayed release (DR/EC) 20 mg PO DAILY RF: 0 amoxicillin 250 mg capsule 250 mg PO Q8H Qty: 30 RF: 0 cholecalciferol (vitamin D3) 1,250 mcg (50,000 unit) capsule 1,250 mcg PO Q4W Qty: 90 RF: 8 Interventions: ED Discharge Assessment Last Done: 03/19/21 23:16 Discharge Date/Time: 03/19/21 23:20
[2021-03-19] MEDS: Amoxicillin/Potassium Clav 875 MG TABLET PO (23:06)
[2021-03-19] MEDS: predniSONE 20 MG TABLET 40 MG PO (23:06)
== END 2021-03-19 23:20 | disposition home or self-care (01) ==
PROVIDERS: Emergency Provider Internal Medicine; PCP Internal Medicine
DX: J01.40 Acute pansinusitis, unspecified (principal); R42 Dizziness and giddiness; E11.9 Type 2 diabetes mellitus without complications; K21.9 Gastro-esophageal reflux disease without esophagitis
CPT/HCPCS: 99283; 99284

== ENCOUNTER 2021-03-26 16:01 | Outpatient (REF) | payer OTHER, SELFPAY | END 2021-03-26 16:02 | disposition home or self-care (01) | LOC: HO.LAB 16:01 | PROVIDERS: PCP Internal Medicine; Visit Provider Internal Medicine | DX: R30.0 Dysuria (principal) | CPT/HCPCS: 87086 ==

== ENCOUNTER 2021-05-09 10:40 | Emergency (ER) | payer OTHER, SELFPAY ==
--- NOTE | ~2021-05-09 | XR_ITS ---
EXAMINATION: XR KNEE, RIGHT CLINICAL INFORMATION: History of gout. Atraumatic right knee pain. COMPARISON: None TECHNIQUE: Four views of the right knee. FINDINGS: Tricompartment joint space is maintained normal. No loose bodies, acute fracture or dislocation seen. There is moderate anterior superior patellar enthesophyte. No abnormal joint effusion seen. No bony erosive changes. XR/XR knee RT 4V IMPRESSION: Moderate anterior superior patellar enthesophyte. No visible acute fracture or dislocation seen.
[2021-05-09 10:46] VITALS: BP 156/80; PULSE 56; RESP 18; TEMP 36.6; O2SAT 96; BMI 31.3
--- NOTE | 2021-05-09 10:59 | ED_ITS ---
HPI - Extremity Problem General Chief complaint: Extremity Injury, Lower Stated complaint: R KNEE PAIN QUEST GOUT Time Seen by Provider: 05/09/21 10:49 Source: patient Mode of arrival: ambulatory Limitations: no limitations History of Present Illness HPI Narrative: 46-year-old male with a past medical history of gout, diabetes, BPH and chronic GERD presenting to the ED with complaints of atraumatic right knee pain that started this morning. Reports that he ate red meat/[place]ian food last night. Reports his knee was completely fine yesterday. Denies any fevers, trauma, falls, redness, paresthesias or any other injuries complaints or concerns at this time. MD Complaint: extremity pain Onset (ago): day(s) (today) Pain Consistency: constant Location: right and knee Severity scale (1-10): >10 Quality: aching and constant Radiation: none Relieving factors: nothing Exacerbating factors: nothing Associated symptoms: denies other symptoms Context: history of gout Related Data Home Medications Medication Instructions Recorded Confirmed amoxicillin 500 mg capsule 500 mg PO TID 04/29/21 04/29/21 ibuprofen 600 mg tablet 600 mg PO TID 04/29/21 04/29/21 Previous Rx's Medication Instructions Recorded glipizide 5 mg tablet 5 mg PO DAILY #90 tab 09/01/20 lisinopril 10 mg tablet 10 mg PO DAILY #90 tab 11/17/20 omeprazole 40 mg PO BID 30 Days #60 cap 12/08/20 cholecalciferol (vitamin D3) 1,250 1,250 mcg PO Q4W #90 cap 04/29/21 mcg (50,000 unit) capsule indomethacin 25 mg PO BID 7 Days #14 cap 05/09/21 oxycodone 5 mg PO BID PRN #10 tab 05/09/21 prednisone 40 mg PO DAILY 5 Days #10 tab 05/09/21 Allergies Allergy/AdvReac Type Severity Reaction Status Date / Time sulfamethoxazole Allergy Mild RASH Verified 05/09/21 10:48 [From BACTRIM] trimethoprim [From BACTRIM] Allergy Mild RASH Verified 05/09/21 10:48 fish Allergy Unknown rash, Verified 05/09/21 10:48 redness morphine [MORPHINE] Allergy Unknown NAUSEA & Verified 05/09/21 10:48 VOMITING, vomiting Sulfa (Sulfonamide Allergy Unknown rash Verified 05/09/21 10:48 Antibiotics) Fish Containing Products AdvReac Unknown WORSENS Verified 05/09/21 10:48 GOUT SYMPTOMS Review of Systems Review of Systems: Constitutional : No changes in activity, No lethargy, No recent prior head injury, No agitation, No increased fussiness ENT/Mouth : No Ear Pain, No Nasal discharge/drainage Eyes: No Eye Pain, No Swelling, No Redness, No Foreign Body, No Vision Changes Cardiovascular : No Chest Pain, No SOB Respiratory : No Cough Gastrointestinal : No Nausea, No Vomiting, No abdominal Pain Genitourinary : No Dysuria, No Urinary Frequency, No Urinary Incontinence, No Urgency, No Flank Pain Musculoskeletal : + joint pain, No neck stiffness, No back pain/injury Skin : No lacerations Neuro : No unsteady gait, No Paresthesias, No Loss of Consciousness, No altered mental status, No Headache Yes all other systems are reviewed and are negative [facility] Past Medical History Attestation statement: The following information was validated with the patient. Medical History Chronic GERD Diabetes Diabetes mellitus Surgical History H/O total hip arthroplasty H/O wrist surgery History of tonsillectomy History of umbilical hernia repair History of wisdom tooth extraction Family History Family History Father No problems noted. Mother Colon cancer Diabetes Hypertension Family/Other Diabetes Hypertension Social History Social History Housing: Apartment Alcohol intake: never Patient Tobacco Use Status: Never used Tobacco Second Hand Smoke Exposure: Yes Advance Directives: No Advance Directives Information Provided: No Current occupational status: disabled Physical Exam Vital Signs: Vital Signs: Last Vital Signs Temp 97.9 F 05/09/21 10:46 Pulse 56 05/09/21 10:46 Resp 18 05/09/21 10:46 BP 156/80 H 05/09/21 10:46 Pulse Ox 96 05/09/21 10:46 Body Mass Index 31.3 vital signs have been reviewed as normal and appeared to be correct. Blood pressure hypertensive at 156/80. Heart rate normal. Respiration rate normal. Temperature normal. Oxygen saturation normal. Appearance: Alert. Oriented X3. No acute distress. Head: Normal external exam. Normocephalic. Atraumatic. Eyes: PERRLA. EOMI. Conjunctiva and sclera normal. Eyelids normal. ENT: Pharynx normal. Uvula midline. Moist mucous membranes. Neck: Normal inspection. Neck supple. FROM. No adenopathy. No meningeal signs. CVS: Normal heart rate and rhythm. Heart sound normal. Pulses normal throughout. . Respiratory: No respiratory distress. Painless inspiration. Back: No CVA tenderness. Full range of motion noted. No rashes/lesion/induration/fluctuance or signs of infection noted. Skin: Skin warm and dry. Normal skin color. Normal skin turgor. No rashes/lesions/lacerations noted. Extremities: Patient with tenderness of palpation to right knee at the suprapatellar aspect. No laxity noted to the knee joint. No joint effusion noted. No limitation in range of motion. No signs of infection. No lower extremity edema. No calf tenderness is noted. Otherwise all other Extremities exhibit normal range of motion and nontender. Neuro: Oriented X 3. No motor deficit. No sensory deficit. Reflexes normal. Normal steady gait. No focal neuro deficits noted. Vascular: + radial pulses/+ 2 distal pedal pulses/+2 dorsalis pedis b/l. Normal cap refill. No cyanosis noted to upper extremity nails and lower extremity toes nails. Course Course Course Narrative: 46-year-old male with atraumatic right knee pain that started this morning his knee was completely fine yesterday prior to eating red meat. On exam patient has mild soft tissue swelling and tenderness to palpation at the suprapatellar aspect. No signs of infection or ligamentous laxity noted. No joint effusion noted. No decreased range of motion. Normal steady gait. Patient requested an x-ray. If x-ray negative will DC home with symptomatic treatment instructions return if any new or worsening symptoms follow-up with primary care provider. Patient understands agrees with this plan. MDM - Extremity (Nontraumatic) Medical Records Attestation: I reviewed the patient's medical records. Imaging Data Right knee: Attestation: I personally reviewed and interpreted this imaging study as follows: Radiologist's impression: FINDINGS: Tricompartment joint space is maintained normal. No loose bodies, acute fracture or dislocation seen. There is moderate anterior superior patellar enthesophyte. No abnormal joint effusion seen. No bony erosive changes. XR/XR knee RT 4V IMPRESSION: Moderate anterior superior patellar enthesophyte. No visible acute fracture or dislocation seen. Discharge Plan Discharge Clinical Impression: Gout Patient Disposition: Home, Self-Care Instructions: Gout (ED) Prescriptions: New indomethacin 25 mg capsule 25 mg PO BID 7 Days Qty: 14 RF: 0 prednisone 20 mg tablet 40 mg PO DAILY 5 Days Qty: 10 RF: 0 oxycodone 5 mg tablet 5 mg PO BID PRN (Reason: pain) Qty: 10 RF: 0 No Action glipizide 5 mg tablet 5 mg PO DAILY Qty: 90 RF: 8 lisinopril 10 mg tablet 10 mg PO DAILY Qty: 90 RF: 8 omeprazole 40 mg capsule,delayed release(DR/EC) 40 mg PO BID 30 Days Qty: 60 RF: 0 ibuprofen 600 mg tablet 600 mg PO TID RF: 0 amoxicillin 500 mg capsule 500 mg PO TID RF: 0 cholecalciferol (vitamin D3) 1,250 mcg (50,000 unit) capsule 1,250 mcg PO Q4W Qty: 90 RF: 8 Referrals: Da Eckert MD [Primary Care Provider] - 2 days Print Language: Tamazight
[2021-05-09] MEDS: oxyCODONE HCl Immed Release 5 MG TABLET PO (11:15)
[2021-05-09] MEDS: predniSONE 20 MG TABLET PO (11:15)
[2021-05-09] MEDS: Indomethacin 25 MG CAPSULE PO (11:32)
[2021-05-09 11:46] VITALS: RESP 17
== END 2021-05-09 11:49 | disposition home or self-care (01) ==
PROVIDERS: Emergency Provider Emergency Medicine; PCP Internal Medicine
DX: M10.9 Gout, unspecified (principal); E11.9 Type 2 diabetes mellitus without complications; Z79.84 Long term (current) use of oral hypoglycemic drugs
CPT/HCPCS: 73564; 99283

== ENCOUNTER 2021-05-19 07:29 | Outpatient (REF) | payer OTHER, SELFPAY ==
[2021-05-19 08:46] LABS: Estimated Average Glucose 140 mg/dL; Hemoglobin A1c % 6.5 %
[2021-05-19 08:59] LABS: Glucose Fasting 121 mg/dL (60-99)
== END 2021-05-19 07:30 | disposition home or self-care (01) ==
LOC: HO.LAB 07:29
PROVIDERS: PCP Internal Medicine; Visit Provider Internal Medicine
DX: E11.65 Type 2 diabetes mellitus with hyperglycemia (principal)
CPT/HCPCS: 36415; 82947; 83036

== ENCOUNTER 2021-06-12 16:51 | Emergency (ER) | payer OTHER, SELFPAY ==
--- NOTE | 2021-06-12 | ECG_ITS ---
Test Reason : EPIGASTRIC PAIN Blood Pressure : / mmHG Vent. Rate : 054 BPM Atrial Rate : 054 BPM P-R Int : 158 ms QRS Dur : 102 ms QT Int : 404 ms P-R-T Axes : 075 002 012 degrees QTc Int : 383 ms Sinus bradycardia Incomplete right bundle branch block Borderline ECG When compared with ECG of 03-DEC-2020 09:16, Incomplete right bundle branch block is now Present Referred By: Generic ED Physician Electronically Signed By:DARIAN GARDNER
--- NOTE | ~2021-06-12 | US_ITS ---
EXAMINATION: US ABDOMEN LIMITED CLINICAL INFORMATION: Epigastric abdominal pain. COMPARISON: CT abdomen from 12/01/2020 TECHNIQUE: Real-time imaging of the right upper quadrant abdominal viscera. FINDINGS: PANCREAS: The visualized portions the pancreas are normal. Pancreatic tail is obscured by bowel gas. LIVER: Liver is mildly enlarged and diffusely hyperechoic from steatosis. No focal hepatic lesion or intrahepatic bile duct dilatation. GALLBLADDER: Normal. The gallbladder is physiologically distended without evidence of stones, sludge, polyps, wall thickening or pericholecystic fluid. COMMON BILE DUCT: Normal in caliber measuring 0.3 cm in diameter. RIGHT KIDNEY: Normal. No hydronephrosis. No renal calculi or focal parenchymal lesions. The kidney measures 10.6 cm in maximum dimension. FREE FLUID: None. US/US abdomen limited IMPRESSION: * No acute sonographic abnormalities. * No evidence of cholelithiasis, cholecystitis or biliary tract obstruction. * Diffuse hepatic steatosis.
--- NOTE | ~2021-06-12 | XR_ITS ---
EXAMINATION: XR CHEST CLINICAL INFORMATION: Abdominal pain. Elevated troponin. COMPARISON: Chest 12/07/2020 TECHNIQUE: Frontal view of the chest was obtained. FINDINGS: The lungs are well-expanded and clear. Heart size is borderline enlarged. Pulmonary vascularity is normal. No gross bony abnormality seen. XR/XR chest 1V IMPRESSION: Unremarkable chest exam. No major change from 12/07/2020
[2021-06-12 16:52] VITALS: BP 159/73; PULSE 56; RESP 18; TEMP 36.8; O2SAT 97; BMI 30.7
[2021-06-12 17:01] LABS: MANUAL DIFF FLAG NO
[2021-06-12 17:03] LABS: Basophils Percent Auto 0.4 % (0-2); Eosinophils Absolute Auto 0.1 X10*3/uL (0.0-0.4); Hematocrit 41.3 % (42-52); Hemoglobin 13.9 g/dl (14.0-18.0); Imm Gran Abs Auto 0.02 X10*3/uL (0.00-0.03); Imm Gran Pct Auto 0.2 % (0.0-0.4); Lymphocytes Absolute Auto 3.3 X10*3/uL (1.2-4.9); Lymphocytes Percent Auto 39.7 % (20-40); Mean Corpuscular HGB Conc 33.7 g/dl (31.0-36.0); Mean Corpuscular Volume 83.1 fL (80-98); Mean Platelet Volume 10.1 fL (9.4-12.4); Monocytes Absolute Auto 0.5 X10*3/uL (0.1-1.2); Monocytes Percent Auto 6.3 % (2-11); Neutrophils Absolute Auto 4.4 X10*3/uL (2.0-8.3); Neutrophils Percent Auto 52.4 % (45-73); Platelet Count 273 X10*3/uL (160-400); Red Blood Count 4.97 X10*6/uL (4.60-5.80); White Blood Count 8.4 X10*3/uL (4.8-10.8)
[2021-06-12 17:41] LABS: Alanine Aminotransferase 17 U/L (0-40); Albumin Level 4.4 g/dL (3.5-5.0); Alkaline Phosphatase 62 U/L (39-117); Anion Gap 12 (12-20); Aspartate Amino Transferase 16 U/L (5-37); Bilirubin Total 0.4 mg/dL (0.0-1.0); Blood Urea Nitrogen 13 mg/dL (9-16); Carbon Dioxide 27 mmol/L (22-29); Chloride 105 mmol/L (96-108); Creatinine Clr Calc Pharmacy 105.5; Estimated Glomerular Filt Rate > 60; Glucose Random 89 mg/dL (60-115); Potassium 4.1 mmol/L (3.3-5.1); Sodium 140 mmol/L (135-145); Total Protein 7.5 g/dL (6.5-8.0)
[2021-06-12 18:59] VITALS: BP 149/68; PULSE 56; RESP 18; O2SAT 99
--- NOTE | 2021-06-12 18:59 | PC.NURSE ---
pt to room, chg into gown and on monitor with HR 56. Pt denies any left arm numbness/tingling, cp or sob. pt c/o epigastric pain. denies n/v. pt alert, respirations easy, n/l. skin w/d. Pt awaiting for md's eval. VS obtained.
--- NOTE | 2021-06-12 20:03 | PC.NURSE ---
EKG OBTAINED TO AND TROP OBTAINED.
[2021-06-12 20:32] LABS: Troponin-I High Sensitivity 13.9 ng/L (<3.5-35.0)
[2021-06-12 20:43] LABS: Lipase 23 U/L (8-78); Triglycerides 294 mg/dL
[2021-06-12] MEDS: Lidocaine HCl Viscous 2 % 15 ML SOLUTION MUCOUS MEM (20:43)
[2021-06-12] MEDS: Magnesium Hydrox/Alum Hydrox 30 ML ORAL.SUSP PO (20:43)
[2021-06-12] MEDS: PHENobarb/Hyoscy/Atropine/Scop 10 ML ELIXIR PO (20:43)
--- NOTE | 2021-06-12 20:44 | PC.NURSE ---
Medicated per MAR with GI cocktail.
[2021-06-12 20:49] LABS: Lactate Dehydrogenase 219 U/L (118-273)
[2021-06-12 21:11] VITALS: BP 163/84; PULSE 51; RESP 18; TEMP 36.9; O2SAT 97
--- NOTE | 2021-06-12 21:19 | ED_ITS ---
HPI - Abdominal Pain General Chief Complaint: Abdominal Pain Stated Complaint: CP Time Seen by Provider: 06/12/21 20:22 Source: patient Mode of arrival: ambulatory Limitations: no limitations History of Present Illness HPI narrative: 46-year-old male with a past medical history of gout, diabetes, BPH and chronic GERD presenting to the ED with complaints of epigastric abdominal pain that he reports as burning in sensation radiating to his chest since this morning worse now. He reports he took Prilosec without any symptomatic relief. He reports the pain is worse after eating. He denies any fevers, chills, nausea/vomiting, shortness of breath, dyspnea on exertion, orthopnea, palpitations, extremity edema, radiation of the abdominal pain, back pain, dysuria, hematuria, black or bloody stools, dysuria, hematuria or any other symptoms complaints or concerns at this time. MD elicited complaint: abdominal pain Pertinent past history: other (GERD) Onset (ago): hour(s) Pain Consistency: constant Location: epigastric Severity: moderate Quality: burning Radiation: chest Exacerbating factors: eating Relieving factors: nothing Associated symptoms: denies other symptoms Treatments prior to arrival: antacids Related Data Home Medications Medication Instructions Recorded Confirmed amoxicillin 500 mg capsule 500 mg PO TID 04/29/21 04/29/21 ibuprofen 600 mg tablet 600 mg PO TID 04/29/21 04/29/21 Previous Rx's Medication Instructions Recorded glipizide 5 mg tablet 5 mg PO DAILY #90 tab 09/01/20 lisinopril 10 mg tablet 10 mg PO DAILY #90 tab 11/17/20 omeprazole 40 mg capsule,delayed 40 mg PO BID 30 Days #60 cap 12/08/20 release cholecalciferol (vitamin D3) 1,250 1,250 mcg PO Q4W #90 cap 04/29/21 mcg (50,000 unit) capsule indomethacin 25 mg capsule 25 mg PO BID 7 Days #14 cap 05/09/21 oxycodone 5 mg tablet 5 mg PO BID PRN #10 tab 05/09/21 prednisone 20 mg tablet 40 mg PO DAILY 5 Days #10 tab 05/09/21 aluminum-mag hydroxide-simethicone 10 ml PO TID PRN #3000 ml 06/12/21 400 mg-400 mg-40 mg/5 mL oral susp (Mylanta Maximum Strength) famotidine 40 mg tablet (Pepcid) 40 mg PO DAILY #30 tab 06/12/21 lidocaine HCl 2 % mucosal solution 1 appl MUCOUS MEMBRANE TID PRN 06/12/21 (Lidocaine Viscous) #100 ml Allergies Allergy/AdvReac Type Severity Reaction Status Date / Time sulfamethoxazole Allergy Mild RASH Verified 05/09/21 10:48 [From BACTRIM] trimethoprim [From BACTRIM] Allergy Mild RASH Verified 05/09/21 10:48 fish Allergy Unknown rash, Verified 05/09/21 10:48 redness morphine [MORPHINE] Allergy Unknown NAUSEA & Verified 05/09/21 10:48 VOMITING, vomiting Sulfa (Sulfonamide Allergy Unknown rash Verified 05/09/21 10:48 Antibiotics) Fish Containing Products AdvReac Unknown WORSENS Verified 05/09/21 10:48 GOUT SYMPTOMS Review of Systems Review of Systems Constitutional : No Weight loss, No Fever, No Chills, No Night Sweats, No Fatigue, NoMalaise ENT/Mouth: No ear pain, No sore throat, No Difficulty swallowing Cardiovascular : Positive abdominal pain radiating to the chest, No SOB, No Dyspnea on Exertion, No Orthopnea, NoEdema, No Palpitations Respiratory : No Cough, No Sputum, No Wheezing, No Dyspnea Gastrointestinal : Positive abdominal pain, No Nausea, No Vomiting, No Diarrhea, No blood streaked emesis, No coffee-ground emesis, No gross hematemesis, No blood streak stool, No gross hematochezia, No Melena Genitourinary : No irregular bleeding, No Dysuria, No Urinary Frequency, No Hematuria,No Urinary Incontinence, No Urgency, No Flank Pain Musculoskeletal : No joint pain, No Myalgias, No Joint Swelling Skin : No Skin Lesions, No rash Neuro : No Weakness, No Numbness, No Paresthesias, No Loss of Consciousness, NoDizziness, No Headache Psych : No Social Issues, Heme/Lymph: No Bruising, No Bleeding,No Lymphadenopathy Endocrine : No Polyuria, No Polydipsia, No Temperature Intolerance Yes all other systems are reviewed and are negative Physical Exam Vital Signs: Vital Signs: Last Vital Signs Temp 98.5 F 06/12/21 21:11 Pulse 51 06/12/21 21:11 Resp 18 06/12/21 21:11 BP 163/84 H 06/12/21 21:11 Pulse Ox 97 06/12/21 21:11 Body Mass Index 30.7 vital signs have been reviewed as normal and appeared to be correct. Blood pressure hypertensive 159/73 Heart rate normal. Respiration rate normal. Temperature normal. Oxygen saturation normal. Appearance: Alert. Oriented X3. No acute distress. Head: Normal external exam. Normocephalic. Eyes: PERRLA. EOMI. Conjunctiva and sclera normal. Eyelids normal. ENT: Pharynx normal. Uvula midline. Moist mucous membranes. Neck: Normal inspection. Neck supple. FROM. No adenopathy. No meningeal signs. CVS: Normal heart rate and rhythm. Heart sound normal. No murmurs noted. Pulses normal throughout. Respiratory: No respiratory distress. Painless inspiration. Breath sounds normal. No wheezes/rales/rhonchi noted. Chest nontender. No accessory muscle usage noted or decreased air movement noted. Abdomen: Soft and mild tenderness to palpation to epigastric area Nondistended. No guarding. No rigidity. Bowel sounds normal in all 4 quadrants. No distention noted. No organomegaly noted. No visible injury noted. No rebound tenderness. Negative Rovsing sign. Negative obturator's sign. Negative psoas sign. Negative Stovall sign. Back: No CVA tenderness. Full range of motion noted. Skin: Skin warm and dry. Normal skin color. Normal skin turgor. No rashes/lesions/lacerations noted. Extremities: Extremities exhibit normal range of motion. Extremities nontender. Neuro: Oriented X 3. No motor deficit. No sensory deficit. Reflexes normal. Normal steady gait. Course Course Course Narrative: 46-year-old male with a past medical history of gout, diabetes, BPH and chronic GERD presenting to the ED with complaints of epigastric abdominal pain that he reports as burning in sensation radiating to his chest since this morning worse now. He reports he took Prilosec without any symptomatic relief. He reports the pain is worse after eating. Patient was given a GI cocktail reports he feels much better. He had labs obtained andpatient with mild anemia. Patient had a troponin that went from 13.9-15.4 which is negative delta. Otherwise all other labs are within normal limits. Abdominal ultrasound within normal limits no acute processes were noted. Chest x-ray within normal limits no acute processes are noted. EKG is sinus bradycardia with ventricular rate of 54 with an promptly right bundle branch block no acute ischemic changes are noted. Similar compared to prior EKG 12/03/2020. Therefore at this time patient most likely chronic GERD will DC home with symptomatic treatment instructions to return if any new or worsening symptoms to follow up with primary care provider. Patient understands agrees with this plan. Discharge Plan Discharge Clinical Impression: GERD (gastroesophageal reflux disease), Chest pain due to GERD Patient Disposition: Home, Self-Care Instructions: Gastroesophageal Reflux Disease (ED) Prescriptions: New alum-mag hydroxide-simeth [Mylanta Maximum Strength] 400-400-40 mg/5 mL suspension 10 ml PO TID PRN (Reason: indigestion) Qty: 3000 RF: 0 lidocaine HCl [Lidocaine Viscous] 2 % solution 1 appl mucous membrane TID PRN (Reason: pain) Qty: 100 RF: 0 famotidine [Pepcid] 40 mg tablet 40 mg PO DAILY Qty: 30 RF: 0 No Action glipizide 5 mg tablet 5 mg PO DAILY Qty: 90 RF: 8 lisinopril 10 mg tablet 10 mg PO DAILY Qty: 90 RF: 8 indomethacin 25 mg capsule 25 mg PO BID 7 Days Qty: 14 RF: 0 prednisone 20 mg tablet 40 mg PO DAILY 5 Days Qty: 10 RF: 0 oxycodone 5 mg tablet 5 mg PO BID PRN (Reason: pain) Qty: 10 RF: 0 omeprazole 40 mg capsule,delayed release(DR/EC) 40 mg PO BID 30 Days Qty: 60 RF: 0 ibuprofen 600 mg tablet 600 mg PO TID RF: 0 amoxicillin 500 mg capsule 500 mg PO TID RF: 0 cholecalciferol (vitamin D3) 1,250 mcg (50,000 unit) capsule 1,250 mcg PO Q4W Qty: 90 RF: 8 Referrals: Burke Campbell MD [Physician] - 2 days Da Eckert MD [Primary Care Provider] - 2 days Stand Alone Forms: Work/School Release Print Language: Romansh [facility] Past Medical History Attestation statement: The following information was validated with the patient. Medical History Chronic GERD Diabetes Diabetes mellitus Surgical History H/O total hip arthroplasty H/O wrist surgery History of tonsillectomy History of umbilical hernia repair History of wisdom tooth extraction Family History Family History Father No problems noted. Mother Colon cancer Diabetes Hypertension Family/Other Diabetes Hypertension Social History Social History Housing: Apartment Alcohol intake: never Patient Tobacco Use Status: Never used Tobacco Second Hand Smoke Exposure: Yes Advance Directives: No Advance Directives Information Provided: Yes Current occupational status: disabled
--- NOTE | 2021-06-12 23:09 | PC.NURSE ---
pt awaiting for pending troponin.
[2021-06-12 23:28] LABS: Troponin-I High Sensitivity 15.4 ng/L (<3.5-35.0)
== END 2021-06-13 00:01 | disposition home or self-care (01) ==
PROVIDERS: Physician Assistant Medical; Emergency Provider Emergency Medicine Emergency Medical Services; PCP Internal Medicine
DX: R07.89 Other chest pain (principal); K21.9 Gastro-esophageal reflux disease without esophagitis; E11.9 Type 2 diabetes mellitus without complications
CPT/HCPCS: 36415; 71045; 76705; 80053; 83615; 83690; 84478; 84484; 85025; 93005; 99284

== ENCOUNTER 2021-06-23 19:27 | Emergency (ER) | payer OTHER, SELFPAY ==
[2021-06-23 19:41] VITALS: BP 112/78; PULSE 68; RESP 20; TEMP 37.2; O2SAT 98; BMI 30.7
[2021-06-23 20:06] LABS: IDNOW Serial# 9DD0AD1C; Strep A Nucleic Acid Negative (Negative)
[2021-06-23 20:40] LABS: Influenza A PCR NEGATIVE (Negative); Influenza B PCR NEGATIVE (Negative); Resp Syncy Virus RNA Qual PCR NEGATIVE (Negative); SARS COV2 PCR INHOUSE NEGATIVE (Negative)
--- NOTE | 2021-06-23 21:22 | ED_ITS ---
HPI - General Adult General Chief complaint: Upper Respiratory Symptoms Stated complaint: Allergic Reaction Time Seen by Provider: 06/23/21 21:03 Source: patient Mode of arrival: ambulatory Limitations: no limitations History of Present Illness HPI narrative: Patient presents to the ED for stuffy nose with itchy/tingling tongue for 1 weeks. Patient states no swelling of lips, swelling of tongue, fever, chills, itchy rash, chest pain, shortness of breath, weakness, or dizziness. Patient unknown of any allergy. Related Data Home Medications Medication Instructions Recorded Confirmed amoxicillin 500 mg capsule 500 mg PO TID 04/29/21 04/29/21 ibuprofen 600 mg tablet 600 mg PO TID 04/29/21 04/29/21 Previous Rx's Medication Instructions Recorded glipizide 5 mg tablet 5 mg PO DAILY #90 tab 09/01/20 lisinopril 10 mg tablet 10 mg PO DAILY #90 tab 11/17/20 omeprazole 40 mg capsule,delayed 40 mg PO BID 30 Days #60 cap 12/08/20 release cholecalciferol (vitamin D3) 1,250 1,250 mcg PO Q4W #90 cap 04/29/21 mcg (50,000 unit) capsule indomethacin 25 mg capsule 25 mg PO BID 7 Days #14 cap 05/09/21 oxycodone 5 mg tablet 5 mg PO BID PRN #10 tab 05/09/21 prednisone 20 mg tablet 40 mg PO DAILY 5 Days #10 tab 05/09/21 aluminum-mag hydroxide-simethicone 10 ml PO TID PRN #3000 ml 06/12/21 400 mg-400 mg-40 mg/5 mL oral susp (Mylanta Maximum Strength) famotidine 40 mg tablet (Pepcid) 40 mg PO DAILY #30 tab 06/12/21 lidocaine HCl 2 % mucosal solution 1 appl MUCOUS MEMBRANE TID PRN 06/12/21 (Lidocaine Viscous) #100 ml diphenhydramine HCl 25 mg capsule 25 mg PO TID PRN #30 cap 06/23/21 (Benadryl) loratadine 10 mg tablet (Claritin) 10 mg PO DAILY 15 Days #15 tab 06/23/21 prednisone 20 mg tablet 40 mg PO DAILY 5 Days #10 tab 06/23/21 Allergies Allergy/AdvReac Type Severity Reaction Status Date / Time sulfamethoxazole Allergy Mild RASH Verified 06/23/21 19:46 [From BACTRIM] trimethoprim [From BACTRIM] Allergy Mild RASH Verified 06/23/21 19:46 fish Allergy Unknown rash, Verified 06/23/21 19:46 redness morphine [MORPHINE] Allergy Unknown NAUSEA & Verified 06/23/21 19:46 VOMITING, vomiting Sulfa (Sulfonamide Allergy Unknown rash Verified 06/23/21 19:46 Antibiotics) Fish Containing Products AdvReac Unknown WORSENS Verified 06/23/21 19:46 GOUT SYMPTOMS Review of Systems Review of Systems: Yes all other systems are reviewed and are negative Constitutional: Constitutional: Reports as per HPI and Reports no additional constitutional complaints Eyes: Eyes: Reports as per HPI and Reports no additional eye complaints ENT: Reports system reviewed and no additional complaints, except as documented and Reports as per HPI Comments: Nasal congestion. Itchy/tingling tounge Cardiovascular: Cardiovascular: Reports as per HPI and Reports no additional cardiovascular complaints Respiratory: Respiratory: Reports as per HPI and Reports no additional respiratory complaints Gastrointestinal: Gastrointestinal: Reports as per HPI and Reports no additional gastrointestinal complaints Genitourinary: Genitourinary: Reports no additional male genitourinary complaints and Reports as per HPI Musculoskeletal: Musculoskeletal: Reports no additional musculoskeletal complaints and Reports as per HPI Integumentary/Breasts: Skin/Breast: Reports system reviewed and no additional complaints, except as docu and Reports as per HPI Neurologic: Reports system reviewed and no additional complaints, except as documented and Reports as per HPI Psychiatric: Psychiatric: Reports no additional psychiatric complaints and Reports as per HPI PMFSH Past Medical History Medical History Chronic GERD Diabetes Diabetes mellitus Surgical History H/O total hip arthroplasty H/O wrist surgery History of tonsillectomy History of umbilical hernia repair History of wisdom tooth extraction Family History Family History Father No problems noted. Mother Colon cancer Diabetes Hypertension Family/Other Diabetes Hypertension Social History Social History Housing: Apartment Alcohol intake: never Patient Tobacco Use Status: Never used Tobacco Second Hand Smoke Exposure: Yes Advance Directives: No Advance Directives Information Provided: No Current occupational status: disabled Physical Exam Vital Signs: Vital Signs: Last Vital Signs Temp 99 F 06/23/21 19:41 Pulse 68 06/23/21 19:41 Resp 20 06/23/21 19:41 BP 112/78 06/23/21 19:41 Pulse Ox 98 06/23/21 19:41 Body Mass Index 30.7 Const: General: cooperative, healthy appearing, comfortable, no acute distress, well developed, alert and awake Orientation/consciousness: oriented to time and patient oriented x3 HENMT: Other: Negative for any lips/tongue/uvula swelling. Patient speaking in full sentences and not using accessory muscles. Oral cavity negative for any lesions. Head: Yes normal to inspection, Yes No palpable skull fracture present, Yes normocephalic and Yes atraumatic Throat: Yes posterior oropharynx normal, Yes tonsils normal and Yes uvula midline Eyes: General: appearance normal, both eyes and all related structures Neck: Neck: Yes normal visual inspection, Yes full ROM, Yes no lymphadenopathy, Yes no meningeal signs, Yes trachea midline, Yes supple and No tender Chest: Chest palpation & inspection: normal inspection of the chest and normal palpation of entire chest wall Resp: Effort & Inspection: normal respiratory effort and able to speak in complete sentences Auscultation: clear to auscultation bilaterally Cardio: Jugular venous distension: no JVD Heart sounds: S1 normal heart sound present and S2 normal heart sound present GI: Inspection: Yes normal to inspection and No abdominal wall ecchymosis Palpation (GI): Soft to palpation, not firm, nontender, no guarding and not rigid : General: No CVA tenderness and Yes no CVA tenderness Back/Spine/Pelvis: Back: no CVA tenderness, No CVA tenderness and No back tenderness Skin: General skin exam: no rashes or lesions noted and elasticity normal Neuro: General: oriented to time, patient oriented x3, no meningeal signs and CN's II-XI intact bilaterally Cranial nerves: Yes CN's II-XII intact bilaterally Extrem: General: Yes normal to inspection and Yes full ROM Psych: Appearance: grossly normal, well kempt and not disheveled Course Course Course Narrative: Will do COVID swab and rapid strep. Reevaluation(s) Reevaluation #1: COVID swab and strep test came back negative. Physical exam does not indicate any angioedema. Physical exam indicate allergic rhinitis. Patient is on lisinopril. Patient informed to hold lisinopril dose and call his PCP. Patient will be discharged with claritin until Benadryl and prednisone Time: 21:27 Medical Decision Making MDM Narrative Medical decision making narrative: Allergic rhinitis Lab Data Labs: Lab Results 06/23/21 06/23/21 Range/Units 19:48 19:48 Coronavirus (PCR) NEGATIVE (Negative) Influenza Type A (PCR) NEGATIVE (Negative) Influenza Type B (PCR) NEGATIVE (Negative) RSV RNA Qual (PCR) NEGATIVE (Negative) S. pyogenes GrpA ASHLEY Negative (Negative) Discharge Plan Discharge Clinical Impression: Allergic rhinitis Patient Disposition: Home, Self-Care Instructions: Allergic Rhinitis (ED) Additional Instructions: Your COVID swab and strep test came back negative. Symptoms may be due to allergic rhinitis. I went over your medications and realize you are on lisinopril. Lisinopril at times can cause chronic cough, allergic reaction, and angioedema. I would recommend not taking the lisinopril and call you PCP to see if she should continue taking it. Return to the ED for any swelling of lips, chest pain, shortness of breath, swelling of tongue, sensation of throat closing, facial droop, slurred speech, paralysis of extremities, loss of vision, or any other concerning symptoms. Prescriptions: New loratadine [Claritin] 10 mg tablet 10 mg PO DAILY 15 Days Qty: 15 RF: 0 prednisone 20 mg tablet 40 mg PO DAILY 5 Days Qty: 10 RF: 0 diphenhydramine HCl [Benadryl] 25 mg capsule 25 mg PO TID PRN (Reason: itching) Qty: 30 RF: 0 No Action glipizide 5 mg tablet 5 mg PO DAILY Qty: 90 RF: 8 lisinopril 10 mg tablet 10 mg PO DAILY Qty: 90 RF: 8 indomethacin 25 mg capsule 25 mg PO BID 7 Days Qty: 14 RF: 0 prednisone 20 mg tablet 40 mg PO DAILY 5 Days Qty: 10 RF: 0 oxycodone 5 mg tablet 5 mg PO BID PRN (Reason: pain) Qty: 10 RF: 0 omeprazole 40 mg capsule,delayed release(DR/EC) 40 mg PO BID 30 Days Qty: 60 RF: 0 alum-mag hydroxide-simeth [Mylanta Maximum Strength] 400-400-40 mg/5 mL suspension 10 ml PO TID PRN (Reason: indigestion) Qty: 3000 RF: 0 lidocaine HCl [Lidocaine Viscous] 2 % solution 1 appl mucous membrane TID PRN (Reason: pain) Qty: 100 RF: 0 famotidine [Pepcid] 40 mg tablet 40 mg PO DAILY Qty: 30 RF: 0 ibuprofen 600 mg tablet 600 mg PO TID RF: 0 amoxicillin 500 mg capsule 500 mg PO TID RF: 0 cholecalciferol (vitamin D3) 1,250 mcg (50,000 unit) capsule 1,250 mcg PO Q4W Qty: 90 RF: 8 Interventions: ED Discharge Assessment Last Done: 06/23/21 22:00 Discharge Date/Time: 06/23/21 22:03 Print Language: Ecuadorean
== END 2021-06-23 22:03 | disposition home or self-care (01) ==
PROVIDERS: Emergency Provider Internal Medicine; PCP Internal Medicine
DX: J30.9 Allergic rhinitis, unspecified (principal); Z20.822 Contact with and (suspected) exposure to COVID-19; E11.9 Type 2 diabetes mellitus without complications
CPT/HCPCS: 0241U; 36415; 87651; 99283

== ENCOUNTER 2021-07-07 11:40 | Outpatient (REF) | payer OTHER, SELFPAY ==
[2021-07-07 13:11] LABS: Prostate Specific Antigen 0.22 ng/mL (<0.05-4.0)
== END 2021-07-07 11:41 | disposition home or self-care (01) ==
LOC: HO.LAB 11:40
PROVIDERS: PCP Internal Medicine; Visit Provider Nurse Practitioner Family
DX: Z12.5 Encounter for screening for malignant neoplasm of prostate (principal)
CPT/HCPCS: 36415; 84153

== ENCOUNTER 2021-07-14 11:29 | Outpatient (REF) | payer OTHER, SELFPAY | END 2021-07-14 11:30 | disposition home or self-care (01) | LOC: HO.LAB 11:29 | PROVIDERS: PCP Internal Medicine; Visit Provider Otolaryngology | DX: J30.89 Other allergic rhinitis (principal) | CPT/HCPCS: 36415; 82785; 86003 ==

== ENCOUNTER 2021-09-27 19:28 | Emergency (ER) | payer OTHER, SELFPAY ==
[2021-09-27 19:41] VITALS: BP 152/83; PULSE 58; RESP 18; TEMP 36.3; O2SAT 98; BMI 29.2
--- NOTE | 2021-09-27 20:52 | ECG_ITS ---
Test Reason : WEAKNESS Blood Pressure : / mmHG Vent. Rate : 059 BPM Atrial Rate : 059 BPM P-R Int : 150 ms QRS Dur : 104 ms QT Int : 398 ms P-R-T Axes : 074 009 019 degrees QTc Int : 394 ms Sinus bradycardia Incomplete right bundle branch block Minimal voltage criteria for LVH, may be normal variant ( Sokolow-Lui ) Borderline ECG No significant changes seen Referred By: Erin Flynn Electronically Signed By:STANISLAV BAXTER MD
--- NOTE | 2021-09-27 20:54 | ED_ITS ---
HPI - General Adult General Chief complaint: General Medical <ABELARDO Quiroz - Last Filed: 09/27/21 23:14> Stated complaint: dizziness <ABELARDO Quiroz - Last Filed: 09/27/21 23:14> Time Seen by Provider: 09/27/21 20:52 <ABELARDO Quiroz - Last Filed: 09/27/21 23:14> Source: patient <ABELARDO Quiroz - Last Filed: 09/27/21 23:14> Mode of arrival: ambulatory <ABELARDO Quiroz - Last Filed: 09/27/21 23:14> Limitations: no limitations <ABELARDO Quiroz - Last Filed: 09/27/21 23:14> History of Present Illness HPI narrative: 46-year-old female past medical history significant for diabetes, GERD presents to the ED with weakness, fatigue, and dizziness X3 days. Patient states that he has been feeling weak and fatigue since he started a new diet which consisted only eating salad and check in, he is caught all carbs at his di et. He states that his sugars have been good at home ranging between 114 and 150. He also reports fatigue that has been worsening over time. He describes his dizziness as disequilibrium, worse with walking better at rest. Patient denies chest pain, shortness of breath, nausea, vomiting, abdominal pain, headache, vision changes, recent URI, rhinorrhea. <ABELARDO Quiroz - Last Filed: 09/27/21 23:14> Onset (ago): day(s) (3) <ABELARDO Quiroz - Last Filed: 09/27/21 23:14> Relieving factors: none <ABELARDO Quiroz - Last Filed: 09/27/21 23:14> Exacerbating factors: none <ABELARDO Quiroz - Last Filed: 09/27/21 23:14> Associated symptoms: other (dizziness, weakness, fatigue) <ABELARDO Quiroz - Last Filed: 09/27/21 23:14> Treatments prior to arrival: none <ABELARDO Quiroz - Last Filed: 09/27/21 23:14> Related Data Home medications: Home Medications Medication Instructions Recorded Confirmed ibuprofen 600 mg tablet 600 mg PO TID 04/29/21 08/10/21 Previous Rx's Medication Instructions Recorded aluminum-mag hydroxide-simethicone 10 ml PO TID PRN #3000 ml 06/12/21 400 mg-400 mg-40 mg/5 mL oral susp (Mylanta Maximum Strength) diphenhydramine HCl 25 mg capsule 25 mg PO TID PRN #30 cap 06/23/21 (Benadryl) loratadine 10 mg tablet (Claritin) 10 mg PO DAILY 15 Days #15 tab 06/23/21 glipizide 5 mg tablet 5 mg PO DAILY #90 tab 09/07/21 omeprazole 40 mg capsule,delayed 40 mg PO BID 30 Days #60 cap 09/08/21 release meclizine 25 mg tablet 25 mg PO DAILY PRN #10 tab 09/27/21 <ABELARDO Quiroz - Last Filed: 09/27/21 23:14> Allergies/adverse reactions: Allergies Allergy/AdvReac Type Severity Reaction Status Date / Time sulfamethoxazole Allergy Mild RASH Verified 08/10/21 10:55 [From BACTRIM] trimethoprim [From BACTRIM] Allergy Mild RASH Verified 08/10/21 10:55 fish Allergy Unknown rash, Verified 08/10/21 10:55 redness morphine [MORPHINE] Allergy Unknown NAUSEA & Verified 08/10/21 10:55 VOMITING, vomiting Sulfa (Sulfonamide Allergy Unknown rash Verified 08/10/21 10:55 Antibiotics) Fish Containing Products AdvReac Unknown WORSENS Verified 08/10/21 10:55 GOUT SYMPTOMS <ABELARDO Quiroz - Last Filed: 09/27/21 23:14> Review of Systems Review of Systems: Constitutional : No Weight loss, No Fever, No Chills, + Fatigue, No Malaise ENT/Mouth : No sore throat, No Rhinorrhea Eyes: No Eye Pain, No Swelling, No Redness Cardiovascular : No Chest Pain, No SOB, No Dyspnea on Exertion, No Orthopnea, No Edema, No Palpitations Respiratory : No Cough, No Sputum, No Wheezing Gastrointestinal : No Nausea, No Vomiting, No Diarrhea, No Constipation, No ab dominal Pain, No Hematochezia, No Melena Genitourinary : No Dysuria, No Urinary Frequency, No Hematuria, Musculoskeletal : No joint pain, No Myalgias, No Joint Swelling Skin : No Skin Lesions, No rash Neuro : + Weakness, No Numbness, + Dizziness, No Headache All other systems reviewed and are negative <ABELARDO Quiroz - Last Filed: 09/27/21 23:14> [facility] Past Medical History Attestation statement: The following information was validated with the patient. <ABELARDO Quiroz - Last Filed: 09/27/21 23:14> Source: old records reviewed and nursing notes reviewed <ABELARDO Quiroz - Last Filed: 09/27/21 23:14> Medical History: Medical History (Updated 09/28/21 @ 00:01 by Mahnaz Kong) Chronic GERD Cough COVID-19 Diabetes Diabetes mellitus Diabetes mellitus with coincident hypertension Dysuria Obesity Physical exam <ABELARDO Quiroz - Last Filed: 09/27/21 23:14> Surgical History: Surgical History H/O total hip arthroplasty H/O wrist surgery History of tonsillectomy History of umbilical hernia repair History of wisdom tooth extraction <ABELARDO Quiroz - Last Filed: 09/27/21 23:14> Family History Family History: Family History Father No problems noted. Mother Colon cancer Diabetes Hypertension Family/Other Diabetes Hypertension <ABELARDO Quiroz - Last Filed: 09/27/21 23:14> Social History Social History: Social History Housing: Apartment Alcohol intake: never Patient Tobacco Use Status: Never used Tobacco e-Cigarette/Vaping Use: Never Used Second Hand Smoke Exposure: Yes Advance Directives: No service: No Current occupational status: disabled <ABELARDO Quiroz - Last Filed: 09/27/21 23:14> Physical Exam Vital Signs: Vital Signs: Last Vital Signs Temp 98.1 F 09/27/21 23:04 Pulse 53 09/27/21 23:04 Resp 18 09/27/21 23:04 BP 166/83 H 09/27/21 23:04 Pulse Ox 98 09/27/21 23:04 Body Mass Index 29.2 VSS patient slightly hypertensive. <ABELARDO Quiroz - Last Filed: 09/27/21 23:14> Vital Signs: Last Vital Signs Temp 98.1 F 09/27/21 23:04 Pulse 53 09/27/21 23:04 Resp 18 09/27/21 23:04 BP 166/83 H 09/27/21 23:04 Pulse Ox 98 09/27/21 23:04 Body Mass Index 29.2 <ABELARDO Parker - Last Filed: 09/28/21 00:03> Appearance: Alert.? Oriented X3.? No acute distress.? Head: Normocephalic, atraumatic, no step-offs or deformities Eyes: Pupils equal, round and reactive to light.?EOMI pain free ENT: Pharynx normal.? Neck: Normal inspection.? Neck supple.? CVS: Normal heart rate and rhythm.? Pulses normal.? Respiratory: No respiratory distress.? Breath sounds normal.? Abdomen: Soft and nontender.? Skin: Skin warm and dry.? Normal skin color.? Normal skin turgor.? Extremities: No lower extremity edema.? No calf ttp. 5/5 strength to bilateral upper and lower extremities Back: No midline tenderness, no C-spine tenderness, full range of motion, no CVA tenderness bilaterally Neuro: Oriented X 3.? No motor deficit.? No sensory deficit. Normal finger to nose, Normal shoulder shurg, Negative pronator drift, Normal hand telehealth nurse strength, Normal heel to franklin. Normal gait no ataxia <ABELARDO Quiroz - Last Filed: 09/27/21 23:14> Course Course Course Narrative: Patient seen and examined, agree with assessment and plan. <ABELARDO Parker - Last Filed: 09/28/21 00:03> Reevaluation(s) Reevaluation #1: Lab work shows no acute infection, normocytic anemia noted, present previously on 06/12/2021. No acute electrolyte abnormalities. Glucose 175. COVID negative. EKG unchanged from previous. Patient reports relief after fluids and meclizine. He is noted to be hypertensive here, however repeat vitals will be done prior to his discharge he has been advised to return to the emergency department with new or worsening symptoms such as weakness, worsening dizziness, fevers, chills, chest pain, shortness of breath. He has also been advised to monitor his blood pressures, ensure these with his primary care provider. He is safe for discharge home with PCP follow-up <ABELARDO Quiroz - Last Filed: 09/27/21 23:14> Time: 23:03 <ABELARDO Quiroz - Last Filed: 09/27/21 23:14> Reevaluation #2: Repeat BP 166/83 patient reports no symptoms of hypertension no headache, no eye pain, no weight vision changes no chest pain no shortness of breath no dizziness. He now mentions he thinks hes on a medicine for HTN and hanst been compliant. Safe for DC home <ABELARDO Quiroz - Last Filed: 09/27/21 23:14> Time: 23:04 <ABELARDO Quiroz - Last Filed: 09/27/21 23:14> Medical Decision Making [facility] Narrative Medical decision making narrative: 2053 46-year-old male past medical history significant for diabetes and chronic GERD presents to the emergency department with dizziness described as disequilibrium, fatigue and weakness x3 days progressively worsening. Patient states recently starting a diet, where he cut out all carbs and he is only eating salad and chicken. He denies chest pain, shortness of breath, fevers, chills, nausea, vomiting, abdominal pain, vision changes, headache. Upon physical examination lungs are clear to auscultation bilaterally. S1-S2 appreciated free of murmurs. Abdomen soft nontender nondistended. Pupils equal round and reactive to light bilaterally. Extraocular movements intact free of pain and nystagmus. Headnormocephalic a traumatic. No step-offs or deformities. No motor deficit.? No sensory deficit. Normal finger to nose, Normal shoulder shurg, Negative pronator drift, Normal hand telehealth nurse strength, Normal heel to franklin. No focal neuro deficits. Patient ambulating with a steady gait no ataxia. Based on patient's history, physical exam is unlikely that this is a posterior stroke, patient denies vision changes, he is ambulating with a steady gait, no focal neuro deficts, normal finger to nose and heel to franklin. Unlikely that this is ICH, patient denies trauma to the head. Plan at this time is to obtain basic labs, point care, orthostatic vital signs, COVID, urine, EKG. <ABELARDO Quiroz - Last Filed: 09/27/21 23:14> Lab Data Result diagrams: : 09/27/21 21:44 09/27/21 21:44 <ABELARDO Quiroz - Last Filed: 09/27/21 23:14> Labs: Lab Results 09/27/21 09/27/21 09/27/21 Range/Units 21:44 21:44 21:44 WBC 8.7 (4.8-10.8) X10*3/uL RBC 4.73 (4.60-5.80) X10*6/uL Hgb 13.9 L (14.0-18.0) g/dl Hct 39.9 L (42.0-52.0) % MCV 84.4 (80.0-98.0) fL MCH 29.4 (27.0-33.0) pg MCHC 34.8 (31.0-36.0) g/dl RDW 12.7 (11.0-16.0) % Plt Count 253 (160-400) X10*3/uL MPV 10.4 (9.4-12.4) fL Immature Gran % (Auto) 0.2 (0.0-0.4) % Neut % (Auto) 51.4 (45-73) % Lymph % (Auto) 39.5 (20-40) % Casey % (Auto) 6.9 (2-11) % Eos % (Auto) 1.7 (0-4) % Baso % (Auto) 0.3 (0-2) % Lymph # (Auto) 3.4 (1.2-4.9) X10*3/uL Casey # (Auto) 0.6 (0.1-1.2) X10*3/uL Eos # (Auto) 0.2 (0.0-0.4) X10*3/uL Baso # (Auto) 0.0 (0.0-0.2) X10*3/uL Abs Immat Gran (auto) 0.02 (0.00-0.03) X10*3/uL Absolute Neuts (auto) 4.5 (2.0-8.3) x10*3/uL Absolute Nucleated RBC 0.000 (0.0-0.012) X10*3/uL Nucleated RBC % (auto) 0.0 (0.0-0.2) /100WBC Sodium 140 (135-145) mmol/L Potassium 4.3 (3.3-5.1) mmol/L Chloride 103 (96-108) mmol/L Carbon Dioxide 32 H (22-29) mmol/L Anion Gap 9 L (12-20) BUN 14 (9-16) mg/dL Creatinine 1.16 (0.5-1.4) mg/dL Estim Creat Clear Calc 86.2 Estimated GFR > 60 Random Glucose 175 H D (60-115) mg/dL Calcium 9.2 D (8.4-10.2) mg/dL Magnesium 2.0 (1.6-2.6) mg/dL Total Bilirubin 0.3 (0.0-1.0) mg/dL AST 18 (5-37) U/L ALT 15 (0-40) U/L Alkaline Phosphatase 51 (39-117) U/L Total Protein 7.0 (6.5-8.0) g/dL Albumin 4.2 (3.5-5.0) g/dL COVID-19 (SETH) Negative (Negative) COVID-19 Clin Com See Note <ABELARDO Quiroz - Last Filed: 09/27/21 23:14> Lab Results 09/27/21 09/27/21 09/27/21 Range/Units 21:44 21:44 21:44 WBC 8.7 (4.8-10.8) X10*3/uL RBC 4.73 (4.60-5.80) X10*6/uL Hgb 13.9 L (14.0-18.0) g/dl Hct 39.9 L (42.0-52.0) % MCV 84.4 (80.0-98.0) fL MCH 29.4 (27.0-33.0) pg MCHC 34.8 (31.0-36.0) g/dl RDW 12.7 (11.0-16.0) % Plt Count 253 (160-400) X10*3/uL MPV 10.4 (9.4-12.4) fL Immature Gran % (Auto) 0.2 (0.0-0.4) % Neut % (Auto) 51.4 (45-73) % Lymph % (Auto) 39.5 (20-40) % Casey % (Auto) 6.9 (2-11) % Eos % (Auto) 1.7 (0-4) % Baso % (Auto) 0.3 (0-2) % Lymph # (Auto) 3.4 (1.2-4.9) X10*3/uL Casey # (Auto) 0.6 (0.1-1.2) X10*3/uL Eos # (Auto) 0.2 (0.0-0.4) X10*3/uL Baso # (Auto) 0.0 (0.0-0.2) X10*3/uL Abs Immat Gran (auto) 0.02 (0.00-0.03) X10*3/uL Absolute Neuts (auto) 4.5 (2.0-8.3) x10*3/uL Absolute Nucleated RBC 0.000 (0.0-0.012) X10*3/uL Nucleated RBC % (auto) 0.0 (0.0-0.2) /100WBC Sodium 140 (135-145) mmol/L Potassium 4.3 (3.3-5.1) mmol/L Chloride 103 (96-108) mmol/L Carbon Dioxide 32 H (22-29) mmol/L Anion Gap 9 L (12-20) BUN 14 (9-16) mg/dL Creatinine 1.16 (0.5-1.4) mg/dL Estim Creat Clear Calc 86.2 Estimated GFR > 60 Random Glucose 175 H D (60-115) mg/dL Calcium 9.2 D (8.4-10.2) mg/dL Magnesium 2.0 (1.6-2.6) mg/dL Total Bilirubin 0.3 (0.0-1.0) mg/dL AST 18 (5-37) U/L ALT 15 (0-40) U/L Alkaline Phosphatase 51 (39-117) U/L Total Protein 7.0 (6.5-8.0) g/dL Albumin 4.2 (3.5-5.0) g/dL COVID-19 (SETH) Negative (Negative) COVID-19 Clin Com See Note <ABELARDO Parker - Last Filed: 09/28/21 00:03> ECG Data Attestation: I personally reviewed and interpreted this ECG as follows: <ABELARDO Quiroz - Last Filed: 09/27/21 23:14> Prior ECG tracings: available for review <ABELARDO Quiroz - Last Filed: 09/27/21 23:14> Interpretation: Ventricular rate 59, T initially QT/QTC EKG shows a sinus bradycardia with an incomplete right bundle-branch block no ST elevations or inversions no concerns for ischemia. No acute changes when compared to EKG from June 12, 2021. <ABELARDO Quiroz - Last Filed: 09/27/21 23:14> Discharge Plan Discharge Clinical Impression: Dysequilibrium, Fatigue, Weakness <ABELARDO Quiroz Last Filed: 09/27/21 23:14> Patient Disposition: Home, Self-Care <ABELARDO Quiroz Last Filed: 09/27/21 23:14> Instructions: Weakness (ED), Lightheadedness (ED), Dizziness (ED), Fatigue (ED) <ABELARDO Quiroz Last Filed: 09/27/21 23:14> Additional Instructions: Take your medications as prescribed. Follow-up with your primary care provider this week. Your blood pressure was noted to be slightly elevated here in the emergency department, it is a good idea for you to monitor it at home, record your blood pressure readings least a few times a week and you should share these with your primary care provider Return to the emergency department with new or worsening symptoms. In case of emergency call 911 <ABELARDO Quiroz - Last Filed: 09/27/21 23:14> Prescriptions: New meclizine 25 mg tablet 25 mg PO DAILY PRN (Reason: dizziness) Qty: 10 RF: 0 No Action glipizide 5 mg tablet 5 mg PO DAILY Qty: 90 RF: 8 omeprazole 40 mg capsule,delayed release(DR/EC) 40 mg PO BID 30 Days Qty: 60 RF: 0 alum-mag hydroxide-simeth [Mylanta Maximum Strength] 400-400-40 mg/5 mL suspension 10 ml PO TID PRN (Reason: indigestion) Qty: 3000 RF: 0 loratadine [Claritin] 10 mg tablet 10 mg PO DAILY 15 Days Qty: 15 RF: 0 diphenhydramine HCl [Benadryl] 25 mg capsule 25 mg PO TID PRN (Reason: itching) Qty: 30 RF: 0 ibuprofen 600 mg tablet 600 mg PO TID RF: 0 <ABELARDO Quiroz - Last Filed: 09/27/21 23:14> Referrals: Da Eckert MD [Primary Care Provider] - 2 days <ABELARDO Quiroz - Last Filed: 09/27/21 23:14> Stand Alone Forms: Work/School Release <ABELARDO Quiroz - Last Filed: 09/27/21 23:14> Interventions: ED Discharge Assessment Last Done: 09/27/21 23:43 <ABELARDO Quiroz - Last Filed: 09/27/21 23:14> Discharge Date/Time: 09/27/21 23:44 <ABELARDO Quiroz - Last Filed: 09/27/21 23:14>
[2021-09-27 21:31] VITALS: BP 140/80; BP 175/84; BP 186/94; PULSE 58; PULSE 59; PULSE 60
[2021-09-27] MEDS: Meclizine HCl 25 MG TABLET PO (21:36)
[2021-09-27] MEDS: 0.9 % Sodium Chloride 1,000 ML 999 ML IV (21:42)
[2021-09-27 21:56] LABS: MANUAL DIFF FLAG NO
[2021-09-27 21:59] LABS: Basophils Percent Auto 0.3 % (0-2); Eosinophils Absolute Auto 0.2 X10*3/uL (0.0-0.4); Eosinophils Percent Auto 1.7 % (0-4); Hematocrit 39.9 % (42.0-52.0); Hemoglobin 13.9 g/dl (14.0-18.0); Imm Gran Abs Auto 0.02 X10*3/uL (0.00-0.03); Imm Gran Pct Auto 0.2 % (0.0-0.4); Lymphocytes Absolute Auto 3.4 X10*3/uL (1.2-4.9); Lymphocytes Percent Auto 39.5 % (20-40); Mean Corpuscular HGB Conc 34.8 g/dl (31.0-36.0); Mean Corpuscular Hemoglobin 29.4 pg (27.0-33.0); Mean Corpuscular Volume 84.4 fL (80.0-98.0); Mean Platelet Volume 10.4 fL (9.4-12.4); Monocytes Absolute Auto 0.6 X10*3/uL (0.1-1.2); Monocytes Percent Auto 6.9 % (2-11); Neutrophils Absolute Auto 4.5 x10*3/uL (2.0-8.3); Neutrophils Percent Auto 51.4 % (45-73); Platelet Count 253 X10*3/uL (160-400); Red Blood Count 4.73 X10*6/uL (4.60-5.80); Red Cell Distribution Width 12.7 % (11.0-16.0); White Blood Count 8.7 X10*3/uL (4.8-10.8)
[2021-09-27 22:13] LABS: COVID-19 Test Negative (Negative)
[2021-09-27 22:14] LABS: Alanine Aminotransferase 15 U/L (0-40); Albumin Level 4.2 g/dL (3.5-5.0); Alkaline Phosphatase 51 U/L (39-117); Anion Gap 9 (12-20); Aspartate Amino Transferase 18 U/L (5-37); Bilirubin Total 0.3 mg/dL (0.0-1.0); Blood Urea Nitrogen 14 mg/dL (9-16); Calcium 9.2 mg/dL (8.4-10.2); Carbon Dioxide 32 mmol/L (22-29); Chloride 103 mmol/L (96-108); Creatinine Clr Calc Pharmacy 86.2; Estimated Glomerular Filt Rate > 60; Glucose Random 175 mg/dL (60-115); Potassium 4.3 mmol/L (3.3-5.1); Sodium 140 mmol/L (135-145)
[2021-09-27 23:04] VITALS: BP 166/83; PULSE 53; RESP 18; TEMP 36.7; O2SAT 98
== END 2021-09-27 23:44 | disposition home or self-care (01) ==
PROVIDERS: Physician Assistant; Emergency Provider Emergency Medicine; PCP Internal Medicine
DX: E87.8 Other disorders of electrolyte and fluid balance, not elsewhere classified (principal); R53.1 Weakness; R53.83 Other fatigue; I10 Essential (primary) hypertension; E11.9 Type 2 diabetes mellitus without complications; D64.9 Anemia, unspecified; Z20.822 Contact with and (suspected) exposure to COVID-19; Z91.14 Patient's other noncompliance with medication regimen
CPT/HCPCS: 36415; 80053; 83735; 85025; 87635; 93005; 96360; 99283; 99284

== ENCOUNTER 2021-09-28 18:22 | Emergency (ER) | payer OTHER, SELFPAY ==
[2021-09-28 18:32] VITALS: BP 161/76; PULSE 58; RESP 18; TEMP 36.8; O2SAT 96; BMI 28.0
--- NOTE | 2021-09-28 21:06 | ED.URI ---
HPI - URI/Sore Throat General Chief Complaint: General Medical Stated Complaint: facial pain blurry vision Time Seen by Provider: 09/28/21 20:52 Source: patient Mode of arrival: ambulatory Limitations: no limitations History of Present Illness MD elicited complaint: sore throat, rhinorrhea, nasal congestion and sinus pain Onset (ago): week(s) (One) Consistency: constant and progressively worsening Severity: moderate Description of mucous: clear, watery, yellow and green Able to tolerate fluids by mouth: Yes Exacerbating factors: changing head position Relieving factors: nothing Associated symptoms: headache, rhinorrhea, nasal congestion and sore throat Treatments prior to arrival: none Related Data Home Medications Medication Instructions Recorded Confirmed ibuprofen 600 mg tablet 600 mg PO TID 04/29/21 08/10/21 Previous Rx's Medication Instructions Recorded aluminum-mag hydroxide-simethicone 10 ml PO TID PRN #3000 ml 06/12/21 400 mg-400 mg-40 mg/5 mL oral susp (Mylanta Maximum Strength) diphenhydramine HCl 25 mg capsule 25 mg PO TID PRN #30 cap 06/23/21 (Benadryl) loratadine 10 mg tablet (Claritin) 10 mg PO DAILY 15 Days #15 tab 06/23/21 glipizide 5 mg tablet 5 mg PO DAILY #90 tab 09/07/21 omeprazole 40 mg capsule,delayed 40 mg PO BID 30 Days #60 cap 09/08/21 release meclizine 25 mg tablet 25 mg PO DAILY PRN #10 tab 09/27/21 amoxicillin 875 mg-potassium 1 tab PO BID 14 Days #28 tab 09/28/21 clavulanate 125 mg tablet (Augmentin) Allergies Allergy/AdvReac Type Severity Reaction Status Date / Time sulfamethoxazole Allergy Mild RASH Verified 09/28/21 18:32 [From BACTRIM] trimethoprim [From BACTRIM] Allergy Mild RASH Verified 09/28/21 18:32 fish Allergy Unknown rash, Verified 09/28/21 18:32 redness morphine [MORPHINE] Allergy Unknown NAUSEA & Verified 09/28/21 18:32 VOMITING, vomiting Sulfa (Sulfonamide Allergy Unknown rash Verified 09/28/21 18:32 Antibiotics) Fish Containing Products AdvReac Unknown WORSENS Verified 09/28/21 18:32 GOUT SYMPTOMS Review of Systems Review of Systems: Constitutional : No Weight loss, No Fever, No Chills, No Night Sweats, No Fatigue, No Malaise ENT/Mouth : Positive sore throat/nasal congestion/rhinorrhea/sinus pressure, No Hearing loss, No Ear Pain, No Hoarseness, No Swallowing Difficulty Eyes: No Eye Pain, No Swelling, No Redness, No Foreign Body, No Discharge, No Vision Changes Cardiovascular : No Chest Pain, No SOB, No Dyspnea on Exertion, No Orthopnea, No Edema, No Palpitations Respiratory : No Cough, No Sputum, No Wheezing, No Smoke Exposure, No Dyspnea Gastrointestinal : No Nausea, No Vomiting, No Diarrhea, No Constipation, No abdominal Pain, No Hematochezia, No Melena Genitourinary : no irregular bleeding, No Dysuria, No Urinary Frequency, No Hematuria, No Urinary Incontinence, No Urgency, No Flank Pain, No Urinary Flow Changes, No Hesitancy Musculoskeletal : No joint pain, No Myalgias, No Joint Swelling Skin : No Skin Lesions, No rash Neuro : Positive intermittent headaches, No Weakness, No Numbness, No Paresthesias, No Loss of Consciousness, No Dizziness Psych : No Anxiety/Panic, No Depression, No SI/HI/AH/VH, No Social Issues, Heme/Lymph: No Bruising, No Bleeding,No Lymphadenopathy Endocrine : No Polyuria, No Polydipsia, No Temperature Intolerance Yes all other systems are reviewed and are negative ON LICENSE OF [facility] Past Medical History Attestation statement: The following information was validated with the patient. Medical History Chronic GERD Cough COVID-19 Diabetes Diabetes mellitus Diabetes mellitus with coincident hypertension Dysuria Obesity Physical exam Sinus infection Surgical History H/O total hip arthroplasty H/O wrist surgery History of tonsillectomy History of umbilical hernia repair History of wisdom tooth extraction Family History Family History Father No problems noted. Mother Colon cancer Diabetes Hypertension Family/Other Diabetes Hypertension Social History Social History Housing: Apartment Alcohol intake: never Patient Tobacco Use Status: Never used Tobacco e-Cigarette/Vaping Use: Never Used Second Hand Smoke Exposure: Yes Advance Directives: No Advance Directives Information Provided: No service: No Current occupational status: disabled Physical Exam Vital Signs: Vital Signs: Last Vital Signs Temp 98.2 F 09/28/21 18:32 Pulse 58 09/28/21 18:32 Resp 18 09/28/21 18:32 BP 161/76 H 09/28/21 18:32 Pulse Ox 96 09/28/21 18:32 Body Mass Index 28.0 vital signs have been reviewed as normal and appeared to be correct. Blood pressure 161/76 Heart rate normal. Respiration rate normal. Temperature normal. Oxygen saturation normal. Appearance: Alert. Oriented X3. No acute distress. Head: Normal external exam. Normocephalic. Atraumatic. Eyes: PERRLA. EOMI. Conjunctiva and sclera normal. Eyelids normal. ENT: EAC normal. TM's Normal. Pharynx normal. Uvula midline. Moist mucous membranes. No trismus noted. No drooling noted. No muffled voice noted. + sinus pressure pain. Neck: Normal inspection. Neck supple. FROM. No adenopathy. Thyroid Normal. No meningeal signs. No neck mass noted. CVS: Normal heart rate and rhythm. Heart sound normal. Pulses normal throughout. No murmurs/rales/gallops. Respiratory: No respiratory distress. Painless inspiration. Breath sounds normal. No wheezes/rales/rhonchi noted. Chest nontender. No accessory muscle usage noted or decreased air movement noted. Back: Full range of motion noted. No rashes/lesion/induration/fluctuance or signs of infection noted. Skin: Skin warm and dry. Normal skin color. Normal skin turgor. No rashes/lesions/lacerations noted. Extremities:Extremities exhibit normal range of motion. Extremities nontender. Neuro: Oriented X 3. No motor deficit. No sensory deficit. Reflexes normal. Normal steady gait. No focal neuro deficits noted. Vascular: + radial pulses/+ 2 distal pedal pulses/+2 dorsalis pedis b/l. Normal cap refill. No cyanosis noted to upper extremity nails and lower extremity toes nails. Course Course Course Narrative: 46-year-old male presenting to the ED with complaints of intermittent headaches/facial pain/nasal congestion/rhinorrhea and sore throat for the past week worse today. Denies recent travel or sick contacts. Reports that he was seen here yesterday and had a full workup and was negative for COVID. Although he reports that he was not given any antibiotics therefore he came here again. Denies any other symptoms complaints or concerns at this time. Will DC home with antibiotics for sinus infection instructions return if any new or worsening symptoms to follow up with primary care provider. Patient understands agrees with this plan. Discharge Plan Discharge Clinical Impression: Sinusitis Patient Disposition: Home, Self-Care Instructions: Sinusitis (ED) Prescriptions: New amoxicillin-pot clavulanate [Augmentin] 875-125 mg tablet 1 tab PO BID 14 Days Qty: 28 RF: 0 No Action glipizide 5 mg tablet 5 mg PO DAILY Qty: 90 RF: 8 omeprazole 40 mg capsule,delayed release(DR/EC) 40 mg PO BID 30 Days Qty: 60 RF: 0 alum-mag hydroxide-simeth [Mylanta Maximum Strength] 400-400-40 mg/5 mL suspension 10 ml PO TID PRN (Reason: indigestion) Qty: 3000 RF: 0 loratadine [Claritin] 10 mg tablet 10 mg PO DAILY 15 Days Qty: 15 RF: 0 diphenhydramine HCl [Benadryl] 25 mg capsule 25 mg PO TID PRN (Reason: itching) Qty: 30 RF: 0 meclizine 25 mg tablet 25 mg PO DAILY PRN (Reason: dizziness) Qty: 10 RF: 0 ibuprofen 600 mg tablet 600 mg PO TID RF: 0 Referrals: Da Eckert MD [Primary Care Provider] - 2 days Stand Alone Forms: Work/School Release Print Language: Yoruba
[2021-09-28 21:21] VITALS: BP 148/76; PULSE 62; RESP 18; TEMP 36.7; O2SAT 97
== END 2021-09-28 21:32 | disposition home or self-care (01) ==
PROVIDERS: Emergency Provider Emergency Medicine; PCP Internal Medicine
DX: J32.9 Chronic sinusitis, unspecified (principal); E11.9 Type 2 diabetes mellitus without complications
CPT/HCPCS: 99283

== ENCOUNTER 2021-10-16 12:20 | Outpatient (REF) | payer OTHER, SELFPAY ==
[2021-10-16 13:37] LABS: Syphilis Screen Nonreactive (Nonreactive)
[2021-10-19 04:30] LABS: HIV AB/AG Nonreactive (Nonreactive); HIV Num 1 0.06 S/CO (0.00-0.99)
[2021-10-19 04:35] LABS: ~HepC Num1 0.06 S/CO (0.00-0.79); ~Hepatitis C Antibody Nonreactive (Nonreactive)
== END 2021-10-16 12:21 | disposition home or self-care (01) ==
LOC: HO.LAB 12:20
PROVIDERS: PCP Internal Medicine; Visit Provider Internal Medicine
DX: Z01.84 Encounter for antibody response examination (principal); Z11.4 Encounter for screening for human immunodeficiency virus [HIV]; Z20.2 Contact with and (suspected) exposure to infections with a predominantly sexual mode of transmission
CPT/HCPCS: 36415; 86695; 86696; 86780; 86803; 87389

== ENCOUNTER 2021-11-06 14:41 | Emergency (ER) | payer OTHER, SELFPAY ==
[2021-11-06 14:57] VITALS: BP 142/73; PULSE 61; RESP 16; TEMP 36.2; O2SAT 97; BMI 31.0
[2021-11-06 15:40] LABS: COVID-19 Test Negative (Negative)
--- NOTE | 2021-11-06 16:46 | ED.HA ---
HPI - Headache General Chief Complaint: Headache Stated Complaint: face pain/ headache runny nose Time Seen by Provider: 11/06/21 14:44 Source: patient Mode of arrival: ambulatory Limitations: no limitations History of Present Illness HPI Narrative: 46-year-old male with a history of gout, BPH, obesity, diabetes here with reports of sinus pressure, sinus pain, nasal congestion, frontal headache for 1 week. Patient has history of sinusitis and states this feels similar. He did complete a course of antibiotics last week but does not know the name of the medication. 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 No fevers, chills, cough, difficulty breathing, chest pain, vomiting, diarrhea, abdominal pain. Related Data Home Medications Medication Instructions Recorded Confirmed ibuprofen 600 mg tablet 600 mg PO TID 04/29/21 10/21/21 lisinopril 10 mg tablet 10 mg PO DAILY 09/30/21 10/21/21 Previous Rx's Medication Instructions Recorded aluminum-mag hydroxide-simethicone 10 ml PO TID PRN #3000 ml 06/12/21 400 mg-400 mg-40 mg/5 mL oral susp (Mylanta Maximum Strength) glipizide 5 mg tablet 5 mg PO DAILY #90 tab 09/07/21 fluticasone propionate 50 1 spray INTRANASAL BID #16 g 09/30/21 mcg/actuation nasal spray,suspension (Flonase Allergy Relief) esomeprazole magnesium 40 mg 40 mg PO DAILY #60 cap 10/01/21 capsule,delayed release azithromycin 250 mg tablet See Rx Instructions PO .COMPLEX #6 10/21/21 tab amoxicillin 875 mg-potassium 1 tab PO BID #14 tab 11/06/21 clavulanate 125 mg tablet (Augmentin) prednisone 20 mg tablet 40 mg PO DAILY #10 tab 11/06/21 Allergies Allergy/AdvReac Type Severity Reaction Status Date / Time sulfamethoxazole Allergy Mild RASH Verified 10/21/21 11:34 [From BACTRIM] trimethoprim [From BACTRIM] Allergy Mild RASH Verified 10/21/21 11:34 fish Allergy Unknown rash, Verified 10/21/21 11:34 redness morphine [MORPHINE] Allergy Unknown NAUSEA & Verified 10/21/21 11:34 VOMITING, vomiting Sulfa (Sulfonamide Allergy Unknown rash Verified 10/21/21 11:34 Antibiotics) Fish Containing Products AdvReac Unknown WORSENS Verified 10/21/21 11:34 GOUT SYMPTOMS Review of Systems Review of Systems: Yes all other systems are reviewed and are negative Constitutional: Constitutional: Reports no additional constitutional complaints, Denies body ache(s), Denies chills, Denies fever(s), Reports headache(s) and Denies weakness Eyes: Eyes: Reports no additional eye complaints and Denies change in vision ENT: Reports system reviewed and no additional complaints, except as documented, Denies dizziness, Reports headache(s), Reports nasal congestion, Denies nasal discharge, Denies neck pain, Reports sinus pain and Reports sinus pressure Cardiovascular: Cardiovascular: Reports no additional cardiovascular complaints, Denies chest pain, Denies leg edema and Denies dyspnea Respiratory: Respiratory: Reports no additional respiratory complaints, Denies cough and Denies dyspnea Gastrointestinal: Gastrointestinal: Reports no additional gastrointestinal complaints, Denies abdominal pain, Denies diarrhea, Denies nausea and Denies vomiting Genitourinary: Genitourinary: Denies urinary incontinence Musculoskeletal: Musculoskeletal: Reports no additional musculoskeletal complaints, Denies back pain, Denies arthralgias, Denies joint swelling, Denies neck pain, Denies numbness and Denies tingling Integumentary/Breasts: Skin/Breast: Reports system reviewed and no additional complaints, except as docu and Denies rash Neurologic: Reports system reviewed and no additional complaints, except as documented, Denies Abnormal speech present, Denies dizziness, Reports headache(s), Denies numbness, Denies tingling and Denies weakness PMFSH Past Medical History Attestation statement: The following information was validated with the patient. Source: old records reviewed and nursing notes reviewed Medical History Chronic GERD Cough COVID-19 Diabetes Diabetes mellitus Diabetes mellitus with coincident hypertension Dysuria Obesity Physical exam Sinus infection Surgical History H/O total hip arthroplasty H/O wrist surgery History of tonsillectomy History of umbilical hernia repair History of wisdom tooth extraction Family History Family History Father No problems noted. Mother Colon cancer Diabetes Hypertension Family/Other Diabetes Hypertension Social History Social History Housing: Apartment Alcohol intake: never Patient Tobacco Use Status: Never used Tobacco e-Cigarette/Vaping Use: Never Used Second Hand Smoke Exposure: Yes Advance Directives: No Advance Directives Information Provided: Yes service: No Current occupational status: disabled Physical Exam Vital Signs: Vital Signs: Last Vital Signs Temp 97.1 F 11/06/21 14:57 Pulse 61 11/06/21 14:57 Resp 16 11/06/21 14:57 BP 142/73 H 11/06/21 14:57 Pulse Ox 97 11/06/21 14:57 BMI result Body Mass Index 31.0 Const: General: cooperative, healthy appearing, comfortable and no acute distress Orientation/consciousness: patient oriented x3 Limitations: no limitations HENMT: Head: Yes normal to inspection Ears: hearing grossly normal bilaterally and TM's normal bilaterally General nose exam: Normal external nose present Face and sinus: Yes normal facial exam, Yes sinus tenderness and Yes other (Bilateral nasal turbinate erythema and swelling) Mouth: Normal oral and palatal mucosa present Throat: Yes posterior oropharynx normal, Yes tonsils normal and Yes uvula midline Eyes: General: appearance normal, both eyes and all related structures Pupils: Equal, round and reactive pupils present Neck: Neck: Yes normal visual inspection, Yes full ROM, Yes no lymphadenopathy and Yes no meningeal signs Chest: Chest palpation & inspection: normal inspection of the chest Resp: Effort & Inspection: normal respiratory effort Auscultation: clear to auscultation bilaterally Cardio: Rate: regular rate Rhythm: regular rhythm Peripheral pulses: Peripheral pulses 2+ throughout GI: Inspection: Yes normal to inspection Palpation (GI): Soft to palpation and nontender Auscultation: normal bowel sounds Back/Spine/Pelvis: Thoracic/Lumbar Spine: thoracic and lumbar spine normal to inspection Skin: General skin exam: no rashes or lesions noted Neuro: General: patient oriented x3, no meningeal signs, no focal motor deficits and normal sensation to monofilament Cranial nerves: Yes Equal, round and reactive pupils present Cognition (Neuro): normal cognition Speech: No Abnormal speech present Gait exam (Neuro): Normal gait present Motor exam (neuro): 5/5 motor strength present throughout Extrem: General: Yes normal to inspection Course Course Course Narrative: 38-year-old male here with 1 week of sinus pressure, sinus pain, nasal congestion and frontal headache. Exam is consistent with sinusitis. Rapid COVID negative. Will treat with course of antibiotics and prednisone. Reviewed worrisome signs and symptoms when to return to the emergency department. Comfortable discharge home. MDM - Headache Medical Records Attestation: I reviewed the patient's medical records. Lab Data Attestation: I reviewed the patient's lab results. Labs: Lab Results 11/06/21 Range/Units 15:15 COVID-19 ([facility]) Negative (Negative) COVID-19 Clin Com See Note Discharge Plan Discharge Clinical Impression: Sinusitis Patient Disposition: Home, Self-Care Instructions: Sinusitis (ED) Additional Instructions: You are negative for COVID Follow-up with wrapping machine operator Prescriptions: New amoxicillin-pot clavulanate [Augmentin] 875-125 mg tablet 1 tab PO BID Qty: 14 RF: 0 prednisone 20 mg tablet 40 mg PO DAILY Qty: 10 RF: 0 No Action glipizide 5 mg tablet 5 mg PO DAILY Qty: 90 RF: 8 esomeprazole magnesium 40 mg capsule,delayed release(DR/EC) 40 mg PO DAILY Qty: 60 RF: 8 alum-mag hydroxide-simeth [Mylanta Maximum Strength] 400-400-40 mg/5 mL suspension 10 ml PO TID PRN (Reason: indigestion) Qty: 3000 RF: 0 ibuprofen 600 mg tablet 600 mg PO TID RF: 0 lisinopril 10 mg tablet 10 mg PO DAILY RF: 0 fluticasone propionate [Flonase Allergy Relief] 50 mcg/actuation spray,suspension 1 spray intranasal BID Qty: 16 RF: 3 azithromycin 250 mg tablet See Rx Instructions PO .COMPLEX Qty: 6 RF: 0 Referrals: Tomeka (FARRAH),MD Da [Primary Care Provider] - 2 days Interventions: ED Discharge Assessment Last Done: 11/06/21 16:15 Discharge Date/Time: 11/06/21 16:16
== END 2021-11-06 16:16 | disposition home or self-care (01) ==
PROVIDERS: Emergency Provider Emergency Medicine; PCP Internal Medicine
DX: J32.9 Chronic sinusitis, unspecified (principal); Z20.822 Contact with and (suspected) exposure to COVID-19; R51.9 Headache, unspecified
CPT/HCPCS: 36415; 87635; 99283

== ENCOUNTER 2021-12-24 18:40 | Emergency (ER) | payer OTHER, SELFPAY ==
--- NOTE | 2021-12-24 | ECG_ITS ---
Test Reason : CP Blood Pressure : / mmHG Vent. Rate : 055 BPM Atrial Rate : 055 BPM P-R Int : 152 ms QRS Dur : 104 ms QT Int : 394 ms P-R-T Axes : 062 -02 014 degrees QTc Int : 376 ms Sinus bradycardia Moderate voltage criteria for LVH, may be normal variant ( R in aVL , Edelstein product ) Borderline ECG When compared with ECG of 27-SEP-2021 21:40, No significant change was found Referred By: Generic ED Physician Electronically Signed By:Freddie Guillermo
--- NOTE | ~2021-12-24 | XR_ITS ---
EXAMINATION: XR CHEST CLINICAL INFORMATION: Chest pain. COMPARISON: Chest radiograph dated from 06/12/2021. TECHNIQUE: Frontal view of the chest was obtained. FINDINGS: No significant abnormality is noted involving the heart, lungs, mediastinum, bony thorax or soft tissues. XR/XR chest 1V IMPRESSION: No acute cardiopulmonary findings.
[2021-12-24 19:38] VITALS: BP 159/78; PULSE 56; RESP 16; O2SAT 98; BMI 30.6
[2021-12-24 21:41] LABS: MANUAL DIFF FLAG NO
[2021-12-24 21:42] LABS: Basophils Percent Auto 0.5 % (0-2); Eosinophils Absolute Auto 0.1 X10*3/uL (0.0-0.4); Eosinophils Percent Auto 1.5 % (0-4); Hematocrit 42.6 % (42.0-52.0); Hemoglobin 14.4 g/dl (14.0-18.0); Imm Gran Abs Auto 0.01 X10*3/uL (0.00-0.03); Imm Gran Pct Auto 0.1 % (0.0-0.4); Lymphocytes Absolute Auto 3.7 X10*3/uL (1.2-4.9); Lymphocytes Percent Auto 45.3 % (20-40); Mean Corpuscular HGB Conc 33.8 g/dl (31.0-36.0); Mean Corpuscular Hemoglobin 28.3 pg (27.0-33.0); Mean Corpuscular Volume 83.9 fL (80.0-98.0); Mean Platelet Volume 10.4 fL (9.4-12.4); Monocytes Absolute Auto 0.7 X10*3/uL (0.1-1.2); Monocytes Percent Auto 8.8 % (2-11); Neutrophils Absolute Auto 3.6 x10*3/uL (2.0-8.3); Neutrophils Percent Auto 43.8 % (45-73); Platelet Count 271 X10*3/uL (160-400); Red Blood Count 5.08 X10*6/uL (4.60-5.80); Red Cell Distribution Width 12.9 % (11.0-16.0); White Blood Count 8.2 X10*3/uL (4.8-10.8)
[2021-12-24 21:56] LABS: Alanine Aminotransferase 23 U/L (0-40); Albumin Level 4.5 g/dL (3.5-5.0); Alkaline Phosphatase 59 U/L (39-117); Anion Gap 10 (12-20); Aspartate Amino Transferase 18 U/L (5-37); Bilirubin Direct < 0.2 mg/dL (0.0-0.5); Bilirubin Total 0.4 mg/dL (0.0-1.0); Blood Urea Nitrogen 22 mg/dL (9-16); Carbon Dioxide 32 mmol/L (22-29); Chloride 101 mmol/L (96-108); Creatinine Clr Calc Pharmacy 88.1; Estimated Glomerular Filt Rate > 60; Glucose Random 136 mg/dL (60-115); Lipase 30 U/L (8-78); Potassium 4.4 mmol/L (3.3-5.1); Sodium 139 mmol/L (135-145); Total Protein 7.7 g/dL (6.5-8.0)
[2021-12-24 22:00] LABS: Troponin-I High Sensitivity 11.6 ng/L (<3.5-35.0)
[2021-12-24 22:52] LABS: Appearance Urine CLEAR; Color Urine YELLOW; Glucose Urine UA NEG (NEG); Leukocyte Esterase Urine NEG (NEG); Nitrite Urine NEG (NEG); PH 7.5 (5.0-8.0); Specific Gravity - Urine 1.015 (1.005-1.025); Urine Blood NEG (NEG); Urine Ketones NEG (NEG); Urine Protein NEG (NEG-TRACE)
[2021-12-24 23:14] LABS: RBC Urine 0 /HPF (0); WBC Urine 0 /HPF (0-4)
[2021-12-25 01:58] VITALS: BP 140/72; PULSE 51; RESP 20; TEMP 36.1; O2SAT 97
--- NOTE | 2021-12-25 02:06 | ED_ITS ---
HPI - Chest Pain General Chief Complaint: Chest Pain Stated Complaint: chest and neck pain Time Seen by Provider: 12/25/21 01:48 Source: patient Mode of arrival: ambulatory Limitations: no limitations History of Present Illness MD complaint: chest pain and chest heaviness Pertinent past history: other (feels like his GERD) Onset (ago): day(s) (2) Timing of current episode: constant Prior episodes: Yes Onset: after eating ([employer]) Pain location: substernal and epigastric Pain radiation: neck Severity: similar to previous episodes Quality: burning Relieving factors: nothing Context: other (hx of same in past when he doesn't stick with his doet) Associated symptoms: nausea Treatment prior to arrival: none Related Data Home Medications Medication Instructions Recorded Confirmed ibuprofen 600 mg tablet 600 mg PO TID 04/29/21 10/21/21 Previous Rx's Medication Instructions Recorded aluminum-mag hydroxide-simethicone 10 ml PO TID PRN #3000 ml 06/12/21 400 mg-400 mg-40 mg/5 mL oral susp (Mylanta Maximum Strength) glipizide 5 mg tablet 5 mg PO DAILY #90 tab 09/07/21 esomeprazole magnesium 40 mg 40 mg PO DAILY #60 cap 10/01/21 capsule,delayed release azithromycin 250 mg tablet See Rx Instructions PO .COMPLEX #6 10/21/21 tab amoxicillin 875 mg-potassium 1 tab PO BID #14 tab 11/06/21 clavulanate 125 mg tablet (Augmentin) prednisone 20 mg tablet 40 mg PO DAILY #10 tab 11/06/21 lisinopril 10 mg tablet 10 mg PO DAILY #90 tab 11/30/21 fluticasone propionate 50 1 spray INTRANASAL BID #16 g 12/22/21 mcg/actuation nasal spray,suspension (Flonase Allergy Relief) sucralfate 100 mg/mL oral 1 g (10 mL) PO BID PRN #400 ml 12/25/21 suspension (Carafate) Allergies Allergy/AdvReac Type Severity Reaction Status Date / Time sulfamethoxazole Allergy Mild RASH Verified 10/21/21 11:34 [From BACTRIM] trimethoprim [From BACTRIM] Allergy Mild RASH Verified 10/21/21 11:34 fish Allergy Unknown rash, Verified 10/21/21 11:34 redness morphine [MORPHINE] Allergy Unknown NAUSEA & Verified 10/21/21 11:34 VOMITING, vomiting Sulfa (Sulfonamide Allergy Unknown rash Verified 10/21/21 11:34 Antibiotics) Fish Containing Products AdvReac Unknown WORSENS Verified 10/21/21 11:34 GOUT SYMPTOMS Review of Systems Review of Systems: Constitutional : No Weight loss, No Fever, No Chills ENT/Mouth : No sore throat, No Rhinorrhea Eyes: No Eye Pain, No Swelling Cardiovascular : pos Chest Pain, no SOB, no Dyspnea on Exertion, No Orthopnea, No Edema, No Palpitations Respiratory : No Cough, No Sputum Gastrointestinal : pos Nausea, No Vomiting, No Diarrhea, No abdominal Pain, No Hematochezia, No Melena Genitourinary : No Dysuria, No Urinary Frequency Musculoskeletal : No joint pain, No Myalgias, No Joint Swelling Skin : No Skin Lesions, No rash Neuro : No Weakness, No Numbness, No Dizziness, No Headache Psych : No Anxiety/Panic, No Depression Heme/Lymph: No Bruising, No Lymphadenopathy Endocrine : No Polyuria, No Polydipsia All other systems reviewed and are negative [facility] Past Medical History Attestation statement: The following information was validated with the patient. Medical History Chronic GERD Cough COVID-19 Diabetes Diabetes mellitus Diabetes mellitus with coincident hypertension Dysuria Obesity Physical exam Sinus infection Surgical History H/O total hip arthroplasty H/O wrist surgery History of tonsillectomy History of umbilical hernia repair History of wisdom tooth extraction Family History Family History Father No problems noted. Mother Colon cancer Diabetes Hypertension Family/Other Diabetes Hypertension Social History Social History Housing: Apartment Alcohol intake: never Patient Tobacco Use Status: Never used Tobacco e-Cigarette/Vaping Use: Never Used Second Hand Smoke Exposure: Yes Advance Directives: No service: No Current occupational status: disabled Physical Exam Vital Signs: Vital Signs: Last Vital Signs Temp 97.0 F 12/25/21 01:58 Pulse 51 12/25/21 01:58 Resp 20 12/25/21 01:58 BP 140/72 H 12/25/21 01:58 Pulse Ox 97 12/25/21 01:58 BMI result Body Mass Index 30.6 Appearance: Alert. Oriented X3. No acute distress. Eyes: Pupils equal, round and reactive to light. ENT: Pharynx normal. Neck: Normal inspection. Neck supple. CVS: Normal heart rate and rhythm. Pulses normal. Respiratory: No respiratory distress. Breath sounds normal. Abdomen: Soft and non-tender. Skin: Skin warm and dry. Normal skin color. Normal skin turgor. Extremities: No lower extremity edema. No calf ttp Neuro: Oriented X 3. No motor deficit. No sensory deficit. Course Course Course Narrative: repeat trop flat under delta prior elevations to 15 before EKG unchanged stable for DC MDM - Chest Pain MDM Narrative Medical decision making narrative: 46 yo male with hx of BPH, GERD, DM, obesity ate [employer] 2 days ago since then burning epigastric pain here requesting GI cocktail - at this time c/o GERD symptoms will obtain EKG, CXR, medication, troponin x 2, GI cocktail - dispo per results and findings. no hypoxia, not pleuritic, distal pulses intact - doubt dissection and PE. Lab Data Result diagrams: 12/24/21 21:35 12/24/21 21:35 Labs: Lab Results 12/24/21 12/24/21 12/24/21 Range/Units 21:35 21:35 21:35 WBC 8.2 (4.8-10.8) X10*3/uL RBC 5.08 (4.60-5.80) X10*6/uL Hgb 14.4 (14.0-18.0) g/dl Hct 42.6 (42.0-52.0) % MCV 83.9 (80.0-98.0) fL MCH 28.3 (27.0-33.0) pg MCHC 33.8 (31.0-36.0) g/dl RDW 12.9 (11.0-16.0) % Plt Count 271 (160-400) X10*3/uL MPV 10.4 (9.4-12.4) fL Immature Gran % (Auto) 0.1 (0.0-0.4) % Neut % (Auto) 43.8 L (45-73) % Lymph % (Auto) 45.3 H (20-40) % [place] % (Auto) 8.8 (2-11) % Eos % (Auto) 1.5 (0-4) % Baso % (Auto) 0.5 (0-2) % Lymph # (Auto) 3.7 (1.2-4.9) X10*3/uL [place] # (Auto) 0.7 (0.1-1.2) X10*3/uL Eos # (Auto) 0.1 (0.0-0.4) X10*3/uL Baso # (Auto) 0.0 (0.0-0.2) X10*3/uL Abs Immat Gran (auto) 0.01 (0.00-0.03) X10*3/uL Absolute Neuts (auto) 3.6 (2.0-8.3) x10*3/uL Absolute Nucleated RBC 0.000 (0.0-0.012) X10*3/uL Nucleated RBC % (auto) 0.0 (0.0-0.2) /100WBC Sodium 139 (135-145) mmol/L Potassium 4.4 (3.3-5.1) mmol/L Chloride 101 (96-108) mmol/L Carbon Dioxide 32 H (22-29) mmol/L Anion Gap 10 L (12-20) BUN 22 H (9-16) mg/dL Creatinine 1.16 (0.5-1.4) mg/dL Estim Creat Clear Calc 88.1 Estimated GFR > 60 Random Glucose 136 H (60-115) mg/dL Calcium 10.0 D (8.4-10.2) mg/dL Total Bilirubin 0.4 (0.0-1.0) mg/dL Direct Bilirubin < 0.2 (0.0-0.5) mg/dL AST 18 (5-37) U/L ALT 23 (0-40) U/L Alkaline Phosphatase 59 (39-117) U/L Troponin I High Sens 11.6 (<3.5-35.0) ng/L Total Protein 7.7 (6.5-8.0) g/dL Albumin 4.5 (3.5-5.0) g/dL Lipase 30 (8-78) U/L Urine Color Urine Appearance Urine pH (5.0-8.0) Ur Specific [place] (1.005-1.025) Urine Protein (NEG-TRACE) MG/DL Urine Glucose (UA) (NEG) MG/DL Urine Ketones (NEG) MG/DL Urine Blood (NEG) Urine Nitrite (NEG) Ur Leukocyte Esterase (NEG) Urine RBC (0) /HPF Urine WBC (0-4) /HPF Ur Squamous Epith Cells /LPF Urine Bacteria /LPF 12/24/21 12/25/21 Range/Units 22:27 01:59 WBC (4.8-10.8) X10*3/uL RBC (4.60-5.80) X10*6/uL Hgb (14.0-18.0) g/dl Hct (42.0-52.0) % MCV (80.0-98.0) fL MCH (27.0-33.0) pg MCHC (31.0-36.0) g/dl RDW (11.0-16.0) % Plt Count (160-400) X10*3/uL MPV (9.4-12.4) fL Immature Gran % (Auto) (0.0-0.4) % Neut % (Auto) (45-73) % Lymph % (Auto) (20-40) % [place] % (Auto) (2-11) % Eos % (Auto) (0-4) % Baso % (Auto) (0-2) % Lymph # (Auto) (1.2-4.9) X10*3/uL [place] # (Auto) (0.1-1.2) X10*3/uL Eos # (Auto) (0.0-0.4) X10*3/uL Baso # (Auto) (0.0-0.2) X10*3/uL Abs Immat Gran (auto) (0.00-0.03) X10*3/uL Absolute Neuts (auto) (2.0-8.3) x10*3/uL Absolute Nucleated RBC (0.0-0.012) X10*3/uL Nucleated RBC % (auto) (0.0-0.2) /100WBC Sodium (135-145) mmol/L Potassium (3.3-5.1) mmol/L Chloride (96-108) mmol/L Carbon Dioxide (22-29) mmol/L Anion Gap (12-20) BUN (9-16) mg/dL Creatinine (0.5-1.4) mg/dL Estim Creat Clear Calc Estimated GFR Random Glucose (60-115) mg/dL Calcium (8.4-10.2) mg/dL Total Bilirubin (0.0-1.0) mg/dL Direct Bilirubin (0.0-0.5) mg/dL AST (5-37) U/L ALT (0-40) U/L Alkaline Phosphatase (39-117) U/L Troponin I High Sens 15.2 (<3.5-35.0) ng/L Total Protein (6.5-8.0) g/dL Albumin (3.5-5.0) g/dL Lipase (8-78) U/L Urine Color YELLOW Urine Appearance CLEAR Urine pH 7.5 (5.0-8.0) Ur Specific [place] 1.015 (1.005-1.025) Urine Protein NEG (NEG-TRACE) MG/DL Urine Glucose (UA) NEG (NEG) MG/DL Urine Ketones NEG (NEG) MG/DL Urine Blood NEG (NEG) Urine Nitrite NEG (NEG) Ur Leukocyte Esterase NEG (NEG) Urine RBC 0 (0) /HPF Urine WBC 0 (0-4) /HPF Ur Squamous Epith Cells NONE /LPF Urine Bacteria NONE /LPF ECG Data ECG #1: Attestation: I personally reviewed and interpreted this ECG as follows: ECG interpretation date: 12/25/21 ECG interpretation time: 02:10 Interpretation: Rate: 55 Rhythm: sinus bradycardia [place]: left, LVH Normal P waves. Normal BABAR. Normal QRS complex. ST T wave : normal no VEENA qTC: normal prior studies: on sig change from priors The study has been interpreted contemporaneously by me. . Discharge Plan Discharge Clinical Impression: Atypical chest pain, Chronic GERD Patient Disposition: Home, Self-Care Instructions: Chest Pain (ED), Gastroesophageal Reflux Disease (ED) Additional Instructions: return to ED for any worsening symptoms or concerns take carafate if your acid reflux continues to bother you, please follow up with your doctor heart tests normal today in ER Prescriptions: New sucralfate [Carafate] 100 mg/mL suspension 1 g PO BID PRN (Reason: stomach upset) Qty: 400 0RF No Action glipizide 5 mg tablet 5 mg PO DAILY Qty: 90 8RF esomeprazole magnesium 40 mg capsule,delayed release(DR/EC) 40 mg PO DAILY Qty: 60 8RF lisinopril 10 mg tablet 10 mg PO DAILY Qty: 90 8RF fluticasone propionate [Flonase Allergy Relief] 50 mcg/actuation spray,suspension 1 spray intranasal BID Qty: 16 3RF Rx Instructions: administer into each nostril alum-mag hydroxide-simeth [Mylanta Maximum Strength] 400-400-40 mg/5 mL suspension 10 ml PO TID PRN (Reason: indigestion) Qty: 3000 0RF amoxicillin-pot clavulanate [Augmentin] 875-125 mg tablet 1 tab PO BID Qty: 14 0RF prednisone 20 mg tablet 40 mg PO DAILY Qty: 10 0RF ibuprofen 600 mg tablet 600 mg PO TID 0RF azithromycin 250 mg tablet See Rx Instructions PO .COMPLEX Qty: 6 0RF Rx Instructions: take 500 mg today (day 1), then 250 mg for 4 days (days 2-5) PO Stand Alone Forms: Work/School Release Interventions: ED Discharge Assessment Last Done: 12/25/21 02:48 Discharge Date/Time: 12/25/21 02:48
[2021-12-25] MEDS: Lidocaine HCl Viscous 2 % 15 ML SOLUTION MUCOUS MEM (02:24)
[2021-12-25] MEDS: Magnesium Hydrox/Alum Hydrox 30 ML ORAL.SUSP PO (02:24)
[2021-12-25 02:28] LABS: Troponin-I High Sensitivity 15.2 ng/L (<3.5-35.0)
== END 2021-12-25 02:48 | disposition home or self-care (01) ==
PROVIDERS: Emergency Provider Emergency Medicine; PCP Internal Medicine
DX: R07.89 Other chest pain (principal); K21.9 Gastro-esophageal reflux disease without esophagitis; E11.9 Type 2 diabetes mellitus without complications
CPT/HCPCS: 36415; 71045; 80053; 81001; 82248; 83690; 84484; 85025; 93005; 99283; 99284

== ENCOUNTER 2022-01-01 21:26 | Emergency (ER) | payer OTHER, SELFPAY ==
[2022-01-01 21:32] VITALS: BP 157/67; PULSE 55; RESP 16; O2SAT 97; BMI 30.5
[2022-01-01 22:57] LABS: MANUAL DIFF FLAG NO
[2022-01-01 22:58] LABS: Basophils Percent Auto 0.4 % (0-2); Eosinophils Absolute Auto 0.1 X10*3/uL (0.0-0.4); Eosinophils Percent Auto 1.3 % (0-4); Hematocrit 40.6 % (42.0-52.0); Imm Gran Abs Auto 0.02 X10*3/uL (0.00-0.03); Imm Gran Pct Auto 0.2 % (0.0-0.4); Lymphocytes Percent Auto 48.6 % (20-40); Mean Corpuscular HGB Conc 34.5 g/dl (31.0-36.0); Mean Corpuscular Hemoglobin 28.7 pg (27.0-33.0); Mean Corpuscular Volume 83.4 fL (80.0-98.0); Mean Platelet Volume 9.8 fL (9.4-12.4); Monocytes Absolute Auto 0.7 X10*3/uL (0.1-1.2); Monocytes Percent Auto 8.1 % (2-11); Neutrophils Absolute Auto 3.4 x10*3/uL (2.0-8.3); Neutrophils Percent Auto 41.4 % (45-73); Platelet Count 280 X10*3/uL (160-400); Red Blood Count 4.87 X10*6/uL (4.60-5.80); Red Cell Distribution Width 12.8 % (11.0-16.0); White Blood Count 8.3 X10*3/uL (4.8-10.8)
[2022-01-01 23:15] LABS: Alanine Aminotransferase 18 U/L (0-40); Albumin Level 4.3 g/dL (3.5-5.0); Alkaline Phosphatase 62 U/L (39-117); Anion Gap 9 (12-20); Aspartate Amino Transferase 17 U/L (5-37); Bilirubin Direct < 0.2 mg/dL (0.0-0.5); Bilirubin Total 0.3 mg/dL (0.0-1.0); Blood Urea Nitrogen 16 mg/dL (9-16); Calcium 9.7 mg/dL (8.4-10.2); Carbon Dioxide 33 mmol/L (22-29); Chloride 103 mmol/L (96-108); Creatinine Clr Calc Pharmacy 98.2; Estimated Glomerular Filt Rate > 60; Glucose Random 125 mg/dL (60-115); Lipase 25 U/L (8-78); Potassium 4.1 mmol/L (3.3-5.1); Sodium 141 mmol/L (135-145); Total Protein 7.2 g/dL (6.5-8.0)
--- NOTE | 2022-01-01 23:59 | ED_ITS ---
HPI - General Adult General Chief complaint: Abdominal Pain Stated complaint: chest pain Time Seen by Provider: 01/01/22 23:28 Source: patient Mode of arrival: ambulatory History of Present Illness HPI narrative: 46-year-old male with history of diabetes presents this evening with burning chest pain and abdominal bloating that he states the latter comes and goes. Patient endorses he has had an upper endoscopy approximately 2 months ago and says they didn't not find anything . Patient states that the burning radiates up into the chest and affects his back and shoulders. He denies any associated shortness of breath, dizziness, diaphoresis, nausea. Patient states he is currently on omeprazole daily other really has not been helping and he does not have an appointment with GI in the next 2 weeks. Patient denies any obstipatio n, nausea, vomiting and states that he has regular bowel movements. Related Data Home Medications Medication Instructions Recorded Confirmed ibuprofen 600 mg tablet 600 mg PO TID 04/29/21 10/21/21 Previous Rx's Medication Instructions Recorded aluminum-mag hydroxide-simethicone 10 ml PO TID PRN #3000 ml 06/12/21 400 mg-400 mg-40 mg/5 mL oral susp (Mylanta Maximum Strength) glipizide 5 mg tablet 5 mg PO DAILY #90 tab 09/07/21 esomeprazole magnesium 40 mg 40 mg PO DAILY #60 cap 10/01/21 capsule,delayed release azithromycin 250 mg tablet See Rx Instructions PO .COMPLEX #6 10/21/21 tab amoxicillin 875 mg-potassium 1 tab PO BID #14 tab 11/06/21 clavulanate 125 mg tablet (Augmentin) prednisone 20 mg tablet 40 mg PO DAILY #10 tab 11/06/21 lisinopril 10 mg tablet 10 mg PO DAILY #90 tab 11/30/21 fluticasone propionate 50 1 spray INTRANASAL BID #16 g 12/22/21 mcg/actuation nasal spray,suspension (Flonase Allergy Relief) sucralfate 100 mg/mL oral 1 g (10 mL) PO BID PRN #400 ml 12/25/21 suspension (Carafate) sucralfate 100 mg/mL oral 10 ml PO BID #420 ml 01/02/22 suspension (Carafate) Allergies Allergy/AdvReac Type Severity Reaction Status Date / Time sulfamethoxazole Allergy Mild RASH Verified 10/21/21 11:34 [From BACTRIM] trimethoprim [From BACTRIM] Allergy Mild RASH Verified 10/21/21 11:34 fish Allergy Unknown rash, Verified 10/21/21 11:34 redness morphine [MORPHINE] Allergy Unknown NAUSEA & Verified 10/21/21 11:34 VOMITING, vomiting Sulfa (Sulfonamide Allergy Unknown rash Verified 10/21/21 11:34 Antibiotics) Fish Containing Products AdvReac Unknown WORSENS Verified 10/21/21 11:34 GOUT SYMPTOMS Review of Systems Review of Systems: pertinent positives and negatives as stated in HPI and 10 point review of systems is otherwise negative. [facility] Past Medical History Medical History Chronic GERD Cough COVID-19 Diabetes Diabetes mellitus Diabetes mellitus with coincident hypertension Dysuria Obesity Physical exam Sinus infection Surgical History H/O total hip arthroplasty H/O wrist surgery History of tonsillectomy History of umbilical hernia repair History of wisdom tooth extraction Family History Family History Father No problems noted. Mother Colon cancer Diabetes Hypertension Family/Other Diabetes Hypertension Social History Social History Housing: Apartment Alcohol intake: never Patient Tobacco Use Status: Never used Tobacco e-Cigarette/Vaping Use: Never Used Second Hand Smoke Exposure: Yes Advance Directives: No service: No Current occupational status: disabled Physical Exam ED Vital Signs: Vital Signs - 24 hr 01/01/22 21:32 01/02/22 00:12 Temperature 98.2 F Pulse Rate 55 54 Respiratory Rate 16 14 Blood Pressure 157/67 H 162/83 H Pulse Oximetry 97 95 BMI result Body Mass Index 30.5 VITAL SIGNS: Reviewed. GENERAL: Well developed, well nourished, in no acute distress. HEAD: Normocephalic/atraumatic EYES: PERRLA, EOMI OROPHARYNX: no oral lesions noted, posterior pharynx clear LUNGS: Normal breath sounds. No adventitious sounds or accessory muscle use. SpO2<97> CARDIOVASCULAR: Regular rate and rhythm without noted murmurs ABDOMEN: Soft, non-tender, non-distended with bowel sounds. NEUROLOGIC: Alert and oriented x 4. Strength and sensation to light touch were grossly intact x 4. Course Course Course Narrative: 46-year-old male with history and clinical presentation suggestive acid reflux. Review of all investigations otherwise negative for acute findings. on re- evaluation after patient received GI cocktail he reports complete resolution of his symptoms and will be discharged home in stable condition with prescription for Carafate use and to continue follow-up with his scheduled appointment with Gastroenterology. Medical Decision Making Lab Data Result diagrams: 01/01/22 22:50 01/01/22 22:50 Labs: Lab Results 01/01/22 01/01/22 01/01/22 Range/Units 22:50 22:50 22:50 WBC 8.3 (4.8-10.8) X10*3/uL RBC 4.87 (4.60-5.80) X10*6/uL Hgb 14.0 (14.0-18.0) g/dl Hct 40.6 L (42.0-52.0) % MCV 83.4 (80.0-98.0) fL MCH 28.7 (27.0-33.0) pg MCHC 34.5 (31.0-36.0) g/dl RDW 12.8 (11.0-16.0) % Plt Count 280 (160-400) X10*3/uL MPV 9.8 (9.4-12.4) fL Immature Gran % (Auto) 0.2 (0.0-0.4) % Neut % (Auto) 41.4 L (45-73) % Lymph % (Auto) 48.6 H (20-40) % [place] % (Auto) 8.1 (2-11) % Eos % (Auto) 1.3 (0-4) % Baso % (Auto) 0.4 (0-2) % Lymph # (Auto) 4.0 (1.2-4.9) X10*3/uL [place] # (Auto) 0.7 (0.1-1.2) X10*3/uL Eos # (Auto) 0.1 (0.0-0.4) X10*3/uL Baso # (Auto) 0.0 (0.0-0.2) X10*3/uL Abs Immat Gran (auto) 0.02 (0.00-0.03) X10*3/uL Absolute Neuts (auto) 3.4 (2.0-8.3) x10*3/uL Absolute Nucleated RBC 0.000 (0.0-0.012) X10*3/uL Nucleated RBC % (auto) 0.0 (0.0-0.2) /100WBC Sodium 141 (135-145) mmol/L Potassium 4.1 (3.3-5.1) mmol/L Chloride 103 (96-108) mmol/L Carbon Dioxide 33 H (22-29) mmol/L Anion Gap 9 L (12-20) BUN 16 (9-16) mg/dL Creatinine 1.04 (0.5-1.4) mg/dL Estim Creat Clear Calc 98.2 Estimated GFR > 60 Random Glucose 125 H (60-115) mg/dL Calcium 9.7 (8.4-10.2) mg/dL Total Bilirubin 0.3 (0.0-1.0) mg/dL Direct Bilirubin < 0.2 (0.0-0.5) mg/dL AST 17 (5-37) U/L ALT 18 (0-40) U/L Alkaline Phosphatase 62 (39-117) U/L Troponin I High Sens 13.0 (<3.5-35.0) ng/L Total Protein 7.2 (6.5-8.0) g/dL Albumin 4.3 (3.5-5.0) g/dL Lipase 25 (8-78) U/L Urine Color Urine Appearance Urine pH (5.0-8.0) Ur Specific [place] (1.005-1.025) Urine Protein (NEG-TRACE) MG/DL Urine Glucose (UA) (NEG) MG/DL Urine Ketones (NEG) MG/DL Urine Blood (NEG) Urine Nitrite (NEG) Ur Leukocyte Esterase (NEG) 01/02/22 Range/Units 00:15 WBC (4.8-10.8) X10*3/uL RBC (4.60-5.80) X10*6/uL Hgb (14.0-18.0) g/dl Hct (42.0-52.0) % MCV (80.0-98.0) fL MCH (27.0-33.0) pg MCHC (31.0-36.0) g/dl RDW (11.0-16.0) % Plt Count (160-400) X10*3/uL MPV (9.4-12.4) fL Immature Gran % (Auto) (0.0-0.4) % Neut % (Auto) (45-73) % Lymph % (Auto) (20-40) % [place] % (Auto) (2-11) % Eos % (Auto) (0-4) % Baso % (Auto) (0-2) % Lymph # (Auto) (1.2-4.9) X10*3/uL [place] # (Auto) (0.1-1.2) X10*3/uL Eos # (Auto) (0.0-0.4) X10*3/uL Baso # (Auto) (0.0-0.2) X10*3/uL Abs Immat Gran (auto) (0.00-0.03) X10*3/uL Absolute Neuts (auto) (2.0-8.3) x10*3/uL Absolute Nucleated RBC (0.0-0.012) X10*3/uL Nucleated RBC % (auto) (0.0-0.2) /100WBC Sodium (135-145) mmol/L Potassium (3.3-5.1) mmol/L Chloride (96-108) mmol/L Carbon Dioxide (22-29) mmol/L Anion Gap (12-20) BUN (9-16) mg/dL Creatinine (0.5-1.4) mg/dL Estim Creat Clear Calc Estimated GFR Random Glucose (60-115) mg/dL Calcium (8.4-10.2) mg/dL Total Bilirubin (0.0-1.0) mg/dL Direct Bilirubin (0.0-0.5) mg/dL AST (5-37) U/L ALT (0-40) U/L Alkaline Phosphatase (39-117) U/L Troponin I High Sens (<3.5-35.0) ng/L Total Protein (6.5-8.0) g/dL Albumin (3.5-5.0) g/dL Lipase (8-78) U/L Urine Color YELLOW Urine Appearance CLEAR Urine pH 6.0 (5.0-8.0) Ur Specific [place] 1.025 (1.005-1.025) Urine Protein NEG (NEG-TRACE) MG/DL Urine Glucose (UA) NEG (NEG) MG/DL Urine Ketones 5 (NEG) MG/DL Urine Blood NEG (NEG) Urine Nitrite NEG (NEG) Ur Leukocyte Esterase NEG (NEG) Discharge Plan Discharge Clinical Impression: Gastroesophageal reflux disease, Diabetes mellitus Patient Disposition: Home, Self-Care Instructions: Diet for Stomach Ulcers and Gastritis (ED), Gastroesophageal Reflux Disease (ED), Diabetes and Nutrition (ED) Additional Instructions: 1. Resume all home medications as prescribed. 2. 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 I would recommend reduction of ibuprofen/ Aleve/ Motrin use as this may contribute to your acid reflux symptoms. 3. Follow-up with your primary care provider by calling the office on Tuesday morning and setting up an appointment for re-evaluation. Return to the ER for acute worsening of symptoms. Prescriptions: New sucralfate [Carafate] 100 mg/mL suspension 10 ml PO BID Qty: 420 0RF No Action glipizide 5 mg tablet 5 mg PO DAILY Qty: 90 8RF esomeprazole magnesium 40 mg capsule,delayed release(DR/EC) 40 mg PO DAILY Qty: 60 8RF lisinopril 10 mg tablet 10 mg PO DAILY Qty: 90 8RF fluticasone propionate [Flonase Allergy Relief] 50 mcg/actuation spray,suspe nsion 1 spray intranasal BID Qty: 16 3RF Rx Instructions: administer into each nostril alum-mag hydroxide-simeth [Mylanta Maximum Strength] 400-400-40 mg/5 mL suspension 10 ml PO TID PRN (Reason: indigestion) Qty: 3000 0RF amoxicillin-pot clavulanate [Augmentin] 875-125 mg tablet 1 tab PO BID Qty: 14 0RF prednisone 20 mg tablet 40 mg PO DAILY Qty: 10 0RF sucralfate [Carafate] 100 mg/mL suspension 1 g PO BID PRN (Reason: stomach upset) Qty: 400 0RF ibuprofen 600 mg tablet 600 mg PO TID 0RF azithromycin 250 mg tablet See Rx Instructions PO .COMPLEX Qty: 6 0RF Rx Instructions: take 500 mg today (day 1), then 250 mg for 4 days (days 2-5) PO Referrals: Da Eckert MD [Primary Care Provider] - 2 days
[2022-01-02 00:12] VITALS: BP 162/83; PULSE 54; RESP 14; TEMP 36.8; O2SAT 95
[2022-01-02] MEDS: Magnesium Hydrox/Alum Hydrox 30 ML ORAL.SUSP PO (00:17)
[2022-01-02] MEDS: Lidocaine HCl Viscous 2 % 15 ML SOLUTION 10 ML MUCOUS MEM (00:17)
[2022-01-02 00:21] LABS: Appearance Urine CLEAR; Color Urine YELLOW; Glucose Urine UA NEG (NEG); Leukocyte Esterase Urine NEG (NEG); Nitrite Urine NEG (NEG); Specific Gravity - Urine 1.025 (1.005-1.025); Urine Blood NEG (NEG); Urine Ketones 5 MG/DL (NEG); Urine Protein NEG (NEG-TRACE)
[2022-01-02] MEDS: Sucralfate Oral Suspension 1 GM/10 ML ORAL.SUSP PO (00:54)
== END 2022-01-02 01:12 | disposition home or self-care (01) ==
PROVIDERS: Emergency Medicine; Emergency Provider Student in an Organized Health Care Education/Training Program; PCP Internal Medicine
DX: K21.9 Gastro-esophageal reflux disease without esophagitis (principal); E11.9 Type 2 diabetes mellitus without complications
CPT/HCPCS: 36415; 80053; 81003; 82248; 83690; 84484; 85025; 99283

== ENCOUNTER 2022-01-14 07:18 | Outpatient (REF) | payer OTHER, SELFPAY ==
[2022-01-14 07:31] LABS: MANUAL DIFF FLAG NO
[2022-01-14 08:18] LABS: Basophils Percent Auto 0.5 % (0-2); Eosinophils Absolute Auto 0.1 X10*3/uL (0.0-0.4); Eosinophils Percent Auto 1.8 % (0-4); Hematocrit 41.7 % (42.0-52.0); Hemoglobin 14.2 g/dl (14.0-18.0); Imm Gran Abs Auto 0.01 X10*3/uL (0.00-0.03); Imm Gran Pct Auto 0.1 % (0.0-0.4); Lymphocytes Absolute Auto 3.4 X10*3/uL (1.2-4.9); Lymphocytes Percent Auto 46.8 % (20-40); Mean Corpuscular HGB Conc 34.1 g/dl (31.0-36.0); Mean Corpuscular Hemoglobin 28.4 pg (27.0-33.0); Mean Corpuscular Volume 83.4 fL (80.0-98.0); Mean Platelet Volume 10.5 fL (9.4-12.4); Monocytes Absolute Auto 0.5 X10*3/uL (0.1-1.2); Monocytes Percent Auto 7.1 % (2-11); Neutrophils Absolute Auto 3.2 x10*3/uL (2.0-8.3); Neutrophils Percent Auto 43.7 % (45-73); Platelet Count 259 X10*3/uL (160-400); Red Cell Distribution Width 13.2 % (11.0-16.0); White Blood Count 7.3 X10*3/uL (4.8-10.8)
[2022-01-14 08:43] LABS: Alanine Aminotransferase 17 U/L (0-40); Albumin Level 4.3 g/dL (3.5-5.0); Alkaline Phosphatase 55 U/L (39-117); Anion Gap 12 (12-20); Aspartate Amino Transferase 16 U/L (5-37); Bilirubin Total 0.5 mg/dL (0.0-1.0); Blood Urea Nitrogen 19 mg/dL (9-16); Calcium 10.3 mg/dL (8.4-10.2); Carbon Dioxide 29 mmol/L (22-29); Chloride 104 mmol/L (96-108); Cholesterol 224 mg/dL; Estimated Glomerular Filt Rate > 60; Glucose Fasting 133 mg/dL (60-99); HDL Cholesterol 43 mg/dL; LDL Cholesterol Calculated 155 mg/dl; Potassium 4.3 mmol/L (3.3-5.1); Sodium 141 mmol/L (135-145); Total Protein 7.2 g/dL (6.5-8.0); Triglycerides 134 mg/dL
[2022-01-14 09:05] LABS: Creatinine Urine 198.33 mg/dL
[2022-01-14 09:06] LABS: Thyroid Stimulating Hormone 2.03 uIU/mL (0.32-4.0)
== END 2022-01-14 07:19 | disposition home or self-care (01) ==
LOC: HO.LAB 07:18
PROVIDERS: PCP Internal Medicine; Visit Provider Internal Medicine
DX: Z00.00 Encounter for general adult medical examination without abnormal findings (principal); E11.9 Type 2 diabetes mellitus without complications; Z13.0 Encounter for screening for diseases of the blood and blood-forming organs and certain disorders involving the immune mechanism
CPT/HCPCS: 36415; 80053; 80061; 82043; 84443; 85025

== ENCOUNTER → 2022-02-11 15:42 | Outpatient (BNVA) | payer OTHER, SELFPAY | PROVIDERS: PCP Internal Medicine; Referring Provider Internal Medicine; Visit Provider Nurse Practitioner | DX: K21.9 Gastro-esophageal reflux disease without esophagitis (principal); K59.04 Chronic idiopathic constipation | CPT/HCPCS: 99202 ==

== ENCOUNTER 2022-02-13 19:34 | Emergency (ER) | payer OTHER, SELFPAY ==
[2022-02-13 20:30] VITALS: BP 132/73; PULSE 56; RESP 16; TEMP 37.2; O2SAT 96; BMI 32.5
--- NOTE | 2022-02-13 20:37 | ED_ITS ---
HPI - URI/Sore Throat General Chief Complaint: Upper Respiratory Symptoms Stated Complaint: sinus congestion Source: patient Mode of arrival: ambulatory Limitations: no limitations History of Present Illness HPI Narrative: 46-year-old male presents with upper respiratory symptoms for approximately 4 days. MD elicited complaint: sinus pain Onset (ago): day(s) (4) Consistency: constant Severity: moderate Description of mucous: clear Able to tolerate fluids by mouth: Yes Exacerbating factors: changing head position and leaning forward Relieving factors: nothing Associated symptoms: denies other symptoms Treatments prior to arrival: none Related Data Home Medications Medication Instructions Recorded Confirmed ibuprofen 600 mg tablet 600 mg PO TID 04/29/21 02/11/22 esomeprazole magnesium 40 mg 40 mg PO DAILY 02/11/22 02/11/22 capsule,delayed release Previous Rx's Medication Instructions Recorded aluminum-mag hydroxide-simethicone 10 ml PO TID PRN #3000 ml 06/12/21 400 mg-400 mg-40 mg/5 mL oral susp (Mylanta Maximum Strength) glipizide 5 mg tablet 5 mg PO DAILY #90 tab 09/07/21 lisinopril 10 mg tablet 10 mg PO DAILY #90 tab 11/30/21 fluticasone propionate 50 1 spray INTRANASAL BID #16 g 12/22/21 mcg/actuation nasal spray,suspension (Flonase Allergy Relief) bisacodyl 5 mg tablet,delayed 10 mg PO BEDTIME 30 Days #60 tab 02/11/22 release (Dulcolax (bisacodyl)) Allergies Allergy/AdvReac Type Severity Reaction Status Date / Time sulfamethoxazole Allergy Mild RASH Verified 02/11/22 16:06 [From BACTRIM] trimethoprim [From BACTRIM] Allergy Mild RASH Verified 02/11/22 16:06 fish Allergy Unknown rash, Verified 02/11/22 16:06 redness morphine [MORPHINE] Allergy Unknown NAUSEA & Verified 02/11/22 16:06 VOMITING, vomiting Sulfa (Sulfonamide Allergy Unknown rash Verified 02/11/22 16:06 Antibiotics) Fish Containing Products AdvReac Unknown WORSENS Verified 02/11/22 16:06 GOUT SYMPTOMS Review of Systems Review of Systems: Constitutional: No Fever, No Chills ENT/Mouth: Positive sinus pressure, No Ear Pain, No Hoarseness, No sore throat Eyes: No Eye Pain, No Swelling, No Redness, No Foreign Body Cardiovascular: No Chest Pain, No SOB Respiratory: No Cough, No Dyspnea Gastrointestinal: No Nausea, No Vomiting, No Diarrhea, No abdominal Pain Genitourinary: No Dysuria, No Hematuria Musculoskeletal: No joint pain, No Myalgias, No Joint Swelling Skin: No Skin lacerations, No rash Neuro: No Weakness, No Numbness, No Paresthesias, No Loss of Consciousness, No Dizziness, No Headache Psych: No Anxiety/Panic, No Depression Heme/Lymph: no easy bruising, no Lymphadenopathy Endocrine: No Polyuria, No Polydipsia Yes all other systems are reviewed and are negative [facility] Past Medical History Attestation statement: The following information was validated with the patient. Source: old records reviewed Medical History Chronic GERD Cough COVID-19 Diabetes Diabetes mellitus Diabetes mellitus with coincident hypertension Dysuria Obesity Physical exam Sinus infection Surgical History H/O total hip arthroplasty H/O wrist surgery History of tonsillectomy History of umbilical hernia repair History of wisdom tooth extraction Family History Family History Father No problems noted. Mother Colon cancer Diabetes Hypertension Family/Other Diabetes Hypertension Social History Social History Housing: Apartment Alcohol intake: never Patient Tobacco Use Status: Never used Tobacco e-Cigarette/Vaping Use: Never Used Second Hand Smoke Exposure: Yes Advance Directives: No Advance Directives Information Provided: No service: No Current occupational status: disabled Cognitive needs: No Hearing needs: No Vision needs: No Physical Exam Vital Signs: Vital Signs: Last Vital Signs Temp 99.0 F 02/13/22 20:30 Pulse 56 02/13/22 20:30 Resp 16 02/13/22 20:30 BP 132/73 02/13/22 20:30 Pulse Ox 96 02/13/22 20:30 BMI result Body Mass Index 32.5 Appearance: Alert. Oriented X3. No acute distress. Eyes: Pupils equal, round and reactive to light. ENT: Pharynx normal. Neck: Normal inspection. Neck supple. No vertebral tenderness. CVS: Normal heart rate and rhythm. Pulses normal. Respiratory: No respiratory distress. Breath sounds normal. Abdomen: Soft and nontender. Skin: Skin warm and dry. Normal skin color. Normal skin turgor. Extremities: No lower extremity edema. Gait well balanced well coordinated. Neuro: No motor deficit. No sensory deficit. Cranial nerves 2-12 intact Course Course Course Narrative: 46-year-old male presents with complaints of 4 days of sinus pressure and pain. States that he gets this every year. I did request a flu and COVID swab however patient was visibly upset by this and stated that he just wanted medications and to leave. Patient does not report any fevers, chills, or discolored mucus. At this time I feel antibiotics would not be inappropriate plan of care for this patient. Patient is visibly upset and decided to leave without his discharge instructions. MDM - URI/Sore Throat Differential Diagnosis Differential diagnosis: Likely upper respiratory infection and sinusitis Medical Records Attestation: I reviewed the patient's medical records. Discharge Plan Discharge Clinical Impression: Sinusitis Patient Disposition: Home, Self-Care Instructions: Sinusitis (ED) Additional Instructions: You were evaluated for sinusitis. You refused your flu and COVID swab. Follow- up with primary care physician. Thank you for choosing this emergency department for evaluation. Please follow-up with primary care physician as needed. Return to the emergency department for any new, concerning, or worsening symptoms. Prescriptions: No Action glipizide 5 mg tablet 5 mg PO DAILY Qty: 90 8RF lisinopril 10 mg tablet 10 mg PO DAILY Qty: 90 8RF fluticasone propionate [Flonase Allergy Relief] 50 mcg/actuation spray,suspension 1 spray intranasal BID Qty: 16 3RF Rx Instructions: administer into each nostril alum-mag hydroxide-simeth [Mylanta Maximum Strength] 400-400-40 mg/5 mL suspension 10 ml PO TID PRN (Reason: indigestion) Qty: 3000 0RF ibuprofen 600 mg tablet 600 mg PO TID 0RF bisacodyl [Dulcolax (bisacodyl)] 5 mg tablet,delayed release (DR/EC) 10 mg PO BEDTIME 30 Days Qty: 60 3RF esomeprazole magnesium 40 mg capsule,delayed release(DR/EC) 40 mg PO DAILY 0RF Interventions: ED Discharge Assessment Last Done: 02/13/22 21:10 Discharge Date/Time: 02/13/22 21:12
--- NOTE | 2022-02-13 20:44 | PC.NURSE ---
PT EVALED BY PROVIDER. PER PROVIDER PT REFUSED COVID TEST. PT LEFT WITH OUT D/C. PAPERS AFTER EVAL.
== END 2022-02-13 21:12 | disposition home or self-care (01) ==
PROVIDERS: Emergency Provider Emergency Medicine Emergency Medical Services; PCP Internal Medicine
DX: J32.9 Chronic sinusitis, unspecified (principal); E11.9 Type 2 diabetes mellitus without complications
CPT/HCPCS: 99283

== ENCOUNTER 2022-02-16 13:52 | Outpatient (REF) | payer OTHER, SELFPAY ==
[2022-02-22 18:22] LABS: Pancreatic Elastase-1 >500 mcg/g
== END 2022-02-16 13:53 | disposition home or self-care (01) ==
LOC: HO.LNP 13:52
PROVIDERS: Visit Provider Nurse Practitioner
DX: K59.04 Chronic idiopathic constipation (principal)
CPT/HCPCS: 82656; 87338

== ENCOUNTER 2022-02-22 09:30 | Outpatient (REF) | payer OTHER, SELFPAY | END 2022-02-22 09:31 | disposition home or self-care (01) | LOC: HO.LAB 09:30 | PROVIDERS: PCP Internal Medicine; Visit Provider Nurse Practitioner | DX: Z13.89 Encounter for screening for other disorder (principal) ==

== ENCOUNTER 2022-02-23 10:07 | Outpatient (REF) | payer OTHER, SELFPAY ==
[2022-03-04 16:36] LABS: Pancreatic Elastase-1 >500 mcg/g
== END 2022-02-23 10:08 | disposition home or self-care (01) ==
LOC: HO.LNP 10:07
PROVIDERS: Visit Provider Nurse Practitioner
DX: K59.04 Chronic idiopathic constipation (principal)
CPT/HCPCS: 82656

== ENCOUNTER → 2022-02-25 13:08 | Outpatient (BNVA) | payer OTHER, SELFPAY | PROVIDERS: PCP Internal Medicine; Referring Provider Internal Medicine; Visit Provider Nurse Practitioner | DX: K59.04 Chronic idiopathic constipation (principal); K21.9 Gastro-esophageal reflux disease without esophagitis; Z80.0 Family history of malignant neoplasm of digestive organs | CPT/HCPCS: 99212 ==

== ENCOUNTER → 2022-03-30 13:46 | Outpatient (BNVA) | payer OTHER, SELFPAY | PROVIDERS: PCP Internal Medicine; Referring Provider Internal Medicine; Visit Provider Nurse Practitioner | DX: K59.04 Chronic idiopathic constipation (principal); Z80.0 Family history of malignant neoplasm of digestive organs | CPT/HCPCS: 99212 ==

== ENCOUNTER 2022-04-17 13:42 | Emergency (ER) | payer OTHER, SELFPAY ==
--- NOTE | ~2022-04-17 | XR_ITS ---
EXAMINATION: XR CHEST CLINICAL INFORMATION: Chest pain COMPARISON: Chest x-ray 12/24/2021 TECHNIQUE: 2 views of the chest were obtained. FINDINGS: The lungs are clear. No airspace consolidation, pleural effusion, or pneumothorax. The cardiomediastinal silhouette is within normal limits. No acute osseous injury. XR/XR chest 2V IMPRESSION: No acute pulmonary process.
[2022-04-17 13:44] VITALS: BP 156/78; PULSE 57; RESP 18; TEMP 36.6; O2SAT 94; BMI 32.5
--- NOTE | 2022-04-17 13:46 | ECG_ITS ---
Test Reason : CP Blood Pressure : / mmHG Vent. Rate : 055 BPM Atrial Rate : 055 BPM P-R Int : 142 ms QRS Dur : 104 ms QT Int : 404 ms P-R-T Axes : 054 -12 008 degrees QTc Int : 386 ms Sinus bradycardia Minimal voltage criteria for LVH, may be normal variant ( R in aVL ) Borderline ECG When compared with ECG of 24-DEC-2021 21:25, No significant change was found Referred By: Generic ED Physician Electronically Signed By:FRANCISCO POSEY MD
--- NOTE | 2022-04-17 14:40 | ED.GENADULT ---
HPI - General Adult General Chief complaint: General Medical Stated complaint: Acid reflux Time Seen by Provider: 04/17/22 14:12 Source: patient Mode of arrival: ambulatory Limitations: no limitations History of Present Illness HPI narrative: 46-year-old male presents for 2 days of chest pain. Patient has past medical history of GERD, diabetes, obesity, BPH. States he has had chest pain for last 2 days, that started after he ate spicy food. Endorses burping a lot and feeling that his abdomen is bloated. He is on omeprazole but states he often has acid reflux. He has seen a GI doctor here at [place]. Patient states he had a former EGD at [facility] in the past. States for last 2 days his chest pain has been a constant 4/10, and is sharp. States the pain is in his epigastric region radiating into his chest. Denies abdominal pain, nausea, vomiting, diarrhea. Last bowel movement was this morning was normal, no dark, tarry, bloody stool. Patient denies alcohol use, denies ibuprofen use. Denies nausea, shortness of breath, diaphoresis. Denies radiation of chest pain in 2 neck, back, or upper extremities Patient states that this chest pain is similar to other chest pain that he has had, that has resolved with a GI cocktail Patient was recently seen by GI last month for chronic idiopathic constipation Related Data Previous Rx's Medication Instructions Recorded glipizide 5 mg tablet 5 mg PO DAILY #90 tab 09/07/21 lisinopril 10 mg tablet 10 mg PO DAILY #90 tab 11/30/21 peg 3350-electrolytes 236 240 ml PO Q10M 1 Days #4000 ml 02/25/22 gram-22.74 gram-6.74 gram-5.86 gram solution (Golytely) plecanatide 3 mg tablet (Trulance) 3 mg PO DAILY #30 tab 02/25/22 fluticasone propionate 50 1 spray INTRANASAL BID #16 g 03/22/22 mcg/actuation nasal spray,suspension (Flonase Allergy Relief) esomeprazole magnesium 40 mg 40 mg PO DAILY #30 cap 03/30/22 capsule,delayed release linaclotide 145 mcg capsule 145 mcg PO QAM #30 cap 03/30/22 (Linzess) Allergies Allergy/AdvReac Type Severity Reaction Status Date / Time sulfamethoxazole Allergy Mild RASH Verified 04/05/22 08:36 [From BACTRIM] trimethoprim [From BACTRIM] Allergy Mild RASH Verified 04/05/22 08:36 fish Allergy Unknown rash, Verified 04/05/22 08:36 redness morphine [MORPHINE] Allergy Unknown NAUSEA & Verified 04/05/22 08:36 VOMITING, vomiting Sulfa (Sulfonamide Allergy Unknown rash Verified 04/05/22 08:36 Antibiotics) Fish Containing Products AdvReac Unknown WORSENS Verified 04/05/22 08:36 GOUT SYMPTOMS Review of Systems Constitutional: Constitutional: Denies body ache(s), Denies chills, Denies fatigue, Denies fever(s), Denies headache(s), Denies malaise and Denies weakness Eyes: Eyes: Denies diplopia ENT: Denies vertigo, Denies dizziness, Denies otalgia, Denies headache(s), Denies mouth pain, Denies post nasal drip, Denies sinus pain, Denies sinus pressure, Denies sore throat and Denies throat swelling Cardiovascular: Cardiovascular: Reports chest pain, Reports Epigastric Pain, Denies syncope, Denies leg edema, Denies lightheadedness, Denies Loss of Consciousness, Denies palpitations and Denies dyspnea Respiratory: Respiratory: Denies chest congestion, Denies cough and Denies dyspnea Gastrointestinal: Gastrointestinal: Denies abdominal pain, Reports belching, Reports bloating, Denies hematochezia, Denies change in bowel habits, Denies coffee ground emesis, Denies constipation, Denies excessive flatus, Denies diarrhea, Denies nausea and Denies vomiting Musculoskeletal: Musculoskeletal: Reports no additional musculoskeletal complaints Neurologic: Denies confusion, Denies vertigo, Denies dizziness, Denies syncope, Denies headache(s) and Denies weakness Psychiatric: Psychiatric: Denies anxiety, Denies confusion and Denies depression Endocrine: Endocrine: Denies fatigue and Denies palpitations Allergic/Immunologic: Allergic/Immunologic: Denies throat swelling PMFSH Past Medical History Medical History Chronic GERD Cough COVID-19 Diabetes Diabetes mellitus Diabetes mellitus with coincident hypertension Dysuria Obesity Physical exam Sinus infection Surgical History H/O colonoscopy H/O total hip arthroplasty H/O wrist surgery History of tonsillectomy History of umbilical hernia repair History of wisdom tooth extraction Family History Family History Father No problems noted. Mother Colon cancer Diabetes Hypertension Family/Other Diabetes Hypertension Social History Social History Housing: Apartment Alcohol intake: never Patient Tobacco Use Status: Never used Tobacco e-Cigarette/Vaping Use: Never Used Second Hand Smoke Exposure: Yes Advance Directives: No Advance Directives Information Provided: No service: No Current occupational status: disabled Current occupational exposures/hazards: No Cognitive needs: No Hearing needs: No Vision needs: Yes Physical Exam ED Vital Signs: Vital Signs - 24 hr 04/17/22 13:44 Temperature 98 F Pulse Rate 57 Respiratory Rate 18 Blood Pressure 156/78 H Pulse Oximetry 94 BMI result Body Mass Index 32.5 Const General: comfortable, no acute distress, alert and awake; No confusion Nutritional Appearance: obese Orientation/consciousness: patient oriented x3 and No confusion Limitations: no limitations Eyes Conjunctivae: conjunctivae normal Pupils: Equal, round and reactive pupils present EOM: EOMs intact bilaterally Neck Neck: Yes full ROM, Yes no lymphadenopathy and Yes supple Chest Chest palpation & inspection: normal inspection of the chest and normal palpation of entire chest wall Resp Effort & Inspection: normal respiratory effort and able to speak in complete sentences Auscultation: clear to auscultation bilaterally, no crackles, no rales, no rhonchi and no wheezes Cardio Rate: regular rate Rhythm: regular rhythm Heart sounds: S1 normal heart sound present and S2 normal heart sound present GI Inspection: Yes Abdominal panniculus present and Yes obesity Palpation (GI): Soft to palpation, nontender, no guarding and not rigid Percussion: Yes normal to percussion Auscultation: normal bowel sounds Skin General skin exam: no rashes or lesions noted Neuro General: patient oriented x3 and No confusion Cranial nerves: Yes Equal, round and reactive pupils present Extrem General: Yes normal to inspection and Yes full ROM Psych Appearance: grossly normal Affect: normal affect Attitude: cooperative Thought process: Normal thought process present Course Course Course Narrative: 46-year-old male with chest pain for the last 2 days after eating spicy food. States the pain is constant and in his epigastrium, also endorses burping and bloating. Is followed by Sofi GONZALEZ. On exam, patient is stable vitals, is comfortable, and well appearing. EKG shows no acute ischemia, will get chest x-ray, labs, troponin. Will rule out cardiac etiology Patient is a 0 on the Wells score for PE Treating with GI cocktail Reevaluation(s) Reevaluation #1: Initial troponin 11.6, will repeat in 3 hours to rule out cardiac etiology, lipase is negative at 26, chest x-ray is unremarkable, labs are normal After GI cocktail, patient is feeling much better. 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 Medical Decision Making Lab Data Result diagrams: 04/17/22 14:53 04/17/22 14:53 Labs: Lab Results 04/17/22 04/17/22 04/17/22 Range/Units 14:53 14:53 14:53 WBC 7.3 (4.8-10.8) X10*3/uL RBC 4.98 (4.60-5.80) X10*6/uL Hgb 14.2 (14.0-18.0) g/dl Hct 40.7 L (42.0-52.0) % MCV 81.7 (80.0-98.0) fL MCH 28.5 (27.0-33.0) pg MCHC 34.9 (31.0-36.0) g/dl RDW 12.9 (11.0-16.0) % Plt Count 249 (160-400) X10*3/uL MPV 10.1 (9.4-12.4) fL Immature Gran % (Auto) 0.1 (0.0-0.4) % Neut % (Auto) 58.3 (45-73) % Lymph % (Auto) 31.8 (20-40) % [place] % (Auto) 8.2 (2-11) % Eos % (Auto) 1.2 (0-4) % Baso % (Auto) 0.4 (0-2) % Lymph # (Auto) 2.3 (1.2-4.9) X10*3/uL [place] # (Auto) 0.6 (0.1-1.2) X10*3/uL Eos # (Auto) 0.1 (0.0-0.4) X10*3/uL Baso # (Auto) 0.0 (0.0-0.2) X10*3/uL Abs Immat Gran (auto) 0.01 (0.00-0.03) X10*3/uL Absolute Neuts (auto) 4.2 (2.0-8.3) x10*3/uL Absolute Nucleated RBC 0.000 (0.0-0.012) X10*3/uL Nucleated RBC % (auto) 0.0 (0.0-0.2) /100WBC Sodium 141 (135-145) mmol/L Potassium 4.2 (3.3-5.1) mmol/L Chloride 103 (96-108) mmol/L Carbon Dioxide 29 (22-29) mmol/L Anion Gap 13 (12-20) BUN 14 (9-16) mg/dL Creatinine 1.00 (0.5-1.4) mg/dL Estim Creat Clear Calc 105.3 Estimated GFR > 60 Random Glucose 105 (60-115) mg/dL Calcium 9.4 D (8.4-10.2) mg/dL Total Bilirubin < 0.2 (0.0-1.0) mg/dL AST 16 (5-37) U/L ALT 17 (0-40) U/L Alkaline Phosphatase 62 (39-117) U/L Troponin I High Sens 11.6 (<3.5-35.0) ng/L Total Protein 7.2 (6.5-8.0) g/dL Albumin 4.2 (3.5-5.0) g/dL Lipase 26 (8-78) U/L ECG Data Interpretation: EKG shows sinus at a rate of 55, NM interval 142, QRS 104, QTC 386, no ST elevation or depression, no T-wave abnormality Discharge Plan Discharge Clinical Impression: Atypical chest pain Patient Disposition: Left Against Medical Advice Instructions: Chest Pain (ED) Additional Instructions: Please return to the emergency room if you have chest pain, shortness of breath, or any other new or concerning symptoms. Please call Gastroenterology and the following number [phone] I have referred them to you as well. I would like you to call them and let you know them know you were in the emergency room, they may want to see you sooner Prescriptions: No Action glipizide 5 mg tablet 5 mg PO DAILY Qty: 90 8RF lisinopril 10 mg tablet 10 mg PO DAILY Qty: 90 8RF fluticasone propionate [Flonase Allergy Relief] 50 mcg/actuation spray,suspension 1 spray intranasal BID Qty: 16 3RF Rx Instructions: administer into each nostril peg 3350-electrolytes [Golytely] 236-22.74-6.74 -5.86 gram recon soln 240 ml PO Q10M 1 Days Qty: 4000 0RF Rx Instructions: until fecal effluent is clear; do not exceed a total volume of 2,000 mL Trulance 3 mg tablet 3 mg PO DAILY Qty: 30 3RF Hold Instructions: Doctor's Order Linzess 145 mcg capsule 145 mcg PO QAM Qty: 30 6RF esomeprazole magnesium 40 mg capsule,delayed release(DR/EC) 40 mg PO DAILY Qty: 30 6RF Referrals: Xavier Nam [Physician] -
[2022-04-17] MEDS: Lidocaine HCl Viscous 2 % 15 ML SOLUTION MUCOUS MEM (14:48)
[2022-04-17] MEDS: Magnesium Hydrox/Alum Hydrox 30 ML ORAL.SUSP PO (14:48)
[2022-04-17 14:57] LABS: MANUAL DIFF FLAG NO
[2022-04-17 14:59] LABS: Basophils Percent Auto 0.4 % (0-2); Eosinophils Absolute Auto 0.1 X10*3/uL (0.0-0.4); Eosinophils Percent Auto 1.2 % (0-4); Hematocrit 40.7 % (42.0-52.0); Hemoglobin 14.2 g/dl (14.0-18.0); Imm Gran Abs Auto 0.01 X10*3/uL (0.00-0.03); Imm Gran Pct Auto 0.1 % (0.0-0.4); Lymphocytes Absolute Auto 2.3 X10*3/uL (1.2-4.9); Lymphocytes Percent Auto 31.8 % (20-40); Mean Corpuscular HGB Conc 34.9 g/dl (31.0-36.0); Mean Corpuscular Hemoglobin 28.5 pg (27.0-33.0); Mean Corpuscular Volume 81.7 fL (80.0-98.0); Mean Platelet Volume 10.1 fL (9.4-12.4); Monocytes Absolute Auto 0.6 X10*3/uL (0.1-1.2); Monocytes Percent Auto 8.2 % (2-11); Neutrophils Absolute Auto 4.2 x10*3/uL (2.0-8.3); Neutrophils Percent Auto 58.3 % (45-73); Platelet Count 249 X10*3/uL (160-400); Red Blood Count 4.98 X10*6/uL (4.60-5.80); Red Cell Distribution Width 12.9 % (11.0-16.0); White Blood Count 7.3 X10*3/uL (4.8-10.8)
[2022-04-17 15:21] LABS: Alanine Aminotransferase 17 U/L (0-40); Albumin Level 4.2 g/dL (3.5-5.0); Alkaline Phosphatase 62 U/L (39-117); Anion Gap 13 (12-20); Aspartate Amino Transferase 16 U/L (5-37); Bilirubin Total < 0.2 mg/dL (0.0-1.0); Blood Urea Nitrogen 14 mg/dL (9-16); Calcium 9.4 mg/dL (8.4-10.2); Carbon Dioxide 29 mmol/L (22-29); Chloride 103 mmol/L (96-108); Creatinine Clr Calc Pharmacy 105.3; Estimated Glomerular Filt Rate > 60; Glucose Random 105 mg/dL (60-115); Lipase 26 U/L (8-78); Potassium 4.2 mmol/L (3.3-5.1); Sodium 141 mmol/L (135-145); Total Protein 7.2 g/dL (6.5-8.0)
[2022-04-17 15:26] LABS: Troponin-I High Sensitivity 11.6 ng/L (<3.5-35.0)
== END 2022-04-17 16:10 | disposition left against medical advice (07) ==
PROVIDERS: Physician Assistant; Emergency Provider Student in an Organized Health Care Education/Training Program; PCP Internal Medicine
DX: R07.89 Other chest pain (principal); N40.0 Benign prostatic hyperplasia without lower urinary tract symptoms; E11.9 Type 2 diabetes mellitus without complications; Z79.899 Other long term (current) drug therapy
CPT/HCPCS: 36415; 71046; 80053; 83690; 84484; 85025; 93005; 99282; 99283

== ENCOUNTER 2022-04-19 11:59 | Emergency (ER) | payer OTHER, SELFPAY ==
--- NOTE | ~2022-04-19 | XR_ITS ---
EXAMINATION: XR CHEST CLINICAL INFORMATION: Chest pain COMPARISON: Chest x-ray 04/17/2022 TECHNIQUE: 2 views of the chest were obtained. FINDINGS: Cardiac silhouette is normal in size. The lungs are adequately aerated. There is no lobar consolidation. No pleural effusion or pneumothorax. No gross osseous abnormality. XR/XR chest 2V IMPRESSION: Stable examination demonstrating no acute pulmonary pathology.
--- NOTE | 2022-04-19 12:11 | ECG_ITS ---
Test Reason : chest pain Blood Pressure : / mmHG Vent. Rate : 058 BPM Atrial Rate : 058 BPM P-R Int : 140 ms QRS Dur : 104 ms QT Int : 394 ms P-R-T Axes : 052 -14 003 degrees QTc Int : 386 ms Sinus bradycardia Minimal voltage criteria for LVH, may be normal variant ( R in aVL ) Borderline ECG When compared with ECG of 17-APR-2022 13:43, No significant change was found Referred By: Generic ED Physician Electronically Signed By:DARIAN GARDNER
[2022-04-19 12:12] VITALS: BP 147/78; PULSE 58; RESP 18; TEMP 36.8; O2SAT 97; BMI 32.8
[2022-04-19 14:11] LABS: MANUAL DIFF FLAG NO
[2022-04-19 14:16] LABS: Basophils Percent Auto 0.5 % (0-2); Eosinophils Absolute Auto 0.1 X10*3/uL (0.0-0.4); Eosinophils Percent Auto 1.3 % (0-4); Hematocrit 44.5 % (42.0-52.0); Hemoglobin 15.2 g/dl (14.0-18.0); Imm Gran Abs Auto 0.02 X10*3/uL (0.00-0.03); Imm Gran Pct Auto 0.2 % (0.0-0.4); Lymphocytes Percent Auto 33.9 % (20-40); Mean Corpuscular HGB Conc 34.2 g/dl (31.0-36.0); Mean Corpuscular Hemoglobin 28.6 pg (27.0-33.0); Mean Corpuscular Volume 83.8 fL (80.0-98.0); Mean Platelet Volume 10.4 fL (9.4-12.4); Monocytes Absolute Auto 0.6 X10*3/uL (0.1-1.2); Monocytes Percent Auto 6.9 % (2-11); Neutrophils Percent Auto 57.2 % (45-73); Platelet Count 278 X10*3/uL (160-400); Red Blood Count 5.31 X10*6/uL (4.60-5.80); Red Cell Distribution Width 12.9 % (11.0-16.0); White Blood Count 8.7 X10*3/uL (4.8-10.8)
[2022-04-19 14:35] LABS: Alanine Aminotransferase 20 U/L (0-40); Albumin Level 4.6 g/dL (3.5-5.0); Alkaline Phosphatase 66 U/L (39-117); Anion Gap 12 (12-20); Aspartate Amino Transferase 19 U/L (5-37); Bilirubin Total 0.4 mg/dL (0.0-1.0); Blood Urea Nitrogen 19 mg/dL (9-16); Carbon Dioxide 31 mmol/L (22-29); Chloride 103 mmol/L (96-108); Creatinine Clr Calc Pharmacy 98.7; Estimated Glomerular Filt Rate > 60; Glucose Random 91 mg/dL (60-115); Magnesium 2.5 mg/dL (1.6-2.6); Potassium 4.5 mmol/L (3.3-5.1); Sodium 141 mmol/L (135-145); Total Protein 7.8 g/dL (6.5-8.0); Troponin-I High Sensitivity 11.8 ng/L (<3.5-35.0)
[2022-04-19 14:38] VITALS: BP 160/86; PULSE 51; RESP 16; O2SAT 97
[2022-04-19] MEDS: Lidocaine HCl Viscous 2 % 15 ML SOLUTION MUCOUS MEM (14:47)
[2022-04-19] MEDS: Famotidine 20 MG TABLET PO (14:47)
[2022-04-19] MEDS: Magnesium Hydrox/Alum Hydrox 30 ML ORAL.SUSP PO (14:47)
--- NOTE | 2022-04-19 15:15 | ED.CHESTPAIN ---
HPI - Chest Pain General Chief Complaint: Chest Pain Stated Complaint: CHEST PAIN Time Seen by Provider: 04/19/22 13:38 Source: patient and family Mode of arrival: ambulatory Limitations: no limitations History of Present Illness HPI narrative: 46-year-old male with a past medical history of GERD, diabetes, hypertension, hyperlipidemia, obesity and BPH presenting to the ED with complaints of intermittent chest pain over the past few days. Reports that he was seen here on 04/17/2022 and was instructed to have a repeat troponin due to his troponin was 11.6 although he left because he did not want to wait any longer although is here today because he reports that his chest pain has been intermittent since he left here and he is concerned because they told him that he needed a repeat troponin due to the elevated troponin. He reports that he believes it is GERD and he is taking his GERD medication. He denies any fevers, chills, dizziness, headaches, jaw pain, nausea/ vomiting, paresthesias, dyspnea on exertion, orthopnea, radiation of the chest pain, abdominal pain, back pain, flank pain, dysuria, hematuria, abnormal penile discharge, rashes, recent falls or trauma, lower extremity edema or calf tenderness, recent trip on a plane/train/car ride, recent immobilization or surgery, history of DVT or PE, history of cancer or PVD disease or any other symptoms complaints or concerns at this time. MD complaint: chest pain Pertinent past history: other ( See above) Onset (ago): day(s) ( past few days) Timing of current episode: episodic, daily and still present Prior episodes: Yes Onset: after eating and other Pain location: substernal Pain radiation: none Severity: mild Quality: sharp Relieving factors: nothing Exacerbating factors: eating Treatment prior to arrival: none Risk Factors Coronary artery disease risk factors: diabetes, hyperlipidemia and hypertension Thoracic aortic dissection risk factors: longstanding hypertension Related Data Previous Rx's Medication Instructions Recorded glipizide 5 mg tablet 5 mg PO DAILY #90 tab 09/07/21 lisinopril 10 mg tablet 10 mg PO DAILY #90 tab 11/30/21 peg 3350-electrolytes 236 240 ml PO Q10M 1 Days #4000 ml 02/25/22 gram-22.74 gram-6.74 gram-5.86 gram solution (Golytely) plecanatide 3 mg tablet (Trulance) 3 mg PO DAILY #30 tab 02/25/22 fluticasone propionate 50 1 spray INTRANASAL BID #16 g 03/22/22 mcg/actuation nasal spray,suspension (Flonase Allergy Relief) esomeprazole magnesium 40 mg 40 mg PO DAILY #30 cap 03/30/22 capsule,delayed release linaclotide 145 mcg capsule 145 mcg PO QAM #30 cap 03/30/22 (Linzess) Allergies Allergy/AdvReac Type Severity Reaction Status Date / Time sulfamethoxazole Allergy Mild RASH Verified 04/05/22 08:36 [From BACTRIM] trimethoprim [From BACTRIM] Allergy Mild RASH Verified 04/05/22 08:36 fish Allergy Unknown rash, Verified 04/05/22 08:36 redness morphine [MORPHINE] Allergy Unknown NAUSEA & Verified 04/05/22 08:36 VOMITING, vomiting Sulfa (Sulfonamide Allergy Unknown rash Verified 04/05/22 08:36 Antibiotics) Fish Containing Products AdvReac Unknown WORSENS Verified 04/05/22 08:36 GOUT SYMPTOMS Review of Systems Review of Systems: Constitutional : No Weight loss, No Fever, No Chills, No Night Sweats, No Fatigue, No Malaise ENT/Mouth : No Hearing loss, No Ear Pain, No Nasal Congestion, No Sinus Pain, No Hoarseness, No sore throat, No Rhinorrhea, No Swallowing Difficulty Eyes: No Eye Pain, No Swelling, No Redness, No Foreign Body, No Discharge, No Vision Changes Cardiovascular : + Chest Pain, No SOB, No Dyspnea on Exertion, No Orthopnea, No Edema, No Palpitations Respiratory : No Cough, No Sputum, No Wheezing, No Smoke Exposure, No Dyspnea Gastrointestinal : No Nausea, No Vomiting, No Diarrhea, No Constipation, No abdominal Pain, No Hematochezia, No Melena Genitourinary : no irregular bleeding, No Dysuria, No Urinary Frequency, No Hematuria, No Urinary Incontinence, No Urgency, No Flank Pain, No Urinary Flow Changes, No Hesitancy Musculoskeletal : No joint pain, No Myalgias, No Joint Swelling Skin : No Skin Lesions, No rash Neuro : No Weakness, No Numbness, No Paresthesias, No Loss of Consciousness, No Dizziness, No Headache Psych : No Anxiety/Panic, No Depression, No SI/HI/AH/VH, No Social Issues, Heme/Lymph: No Bruising, No Bleeding,No Lymphadenopathy Endocrine : No Polyuria, No Polydipsia, No Temperature Intolerance Yes all other systems are reviewed and are negative [facility] Past Medical History Attestation statement: The following information was validated with the patient. Medical History Chronic GERD Cough COVID-19 Diabetes Diabetes mellitus Diabetes mellitus with coincident hypertension Dysuria Obesity Physical exam Sinus infection Surgical History H/O colonoscopy H/O total hip arthroplasty H/O wrist surgery History of tonsillectomy History of umbilical hernia repair History of wisdom tooth extraction Family History Family History Father No problems noted. Mother Colon cancer Diabetes Hypertension Family/Other Diabetes Hypertension Social History Social History Housing: Apartment Alcohol intake: never Patient Tobacco Use Status: Never used Tobacco e-Cigarette/Vaping Use: Never Used Second Hand Smoke Exposure: Yes Advance Directives: No Advance Directives Information Provided: Yes service: No Current occupational status: disabled Current occupational exposures/hazards: No Cognitive needs: No Hearing needs: No Vision needs: Yes Physical Exam Vital Signs: Vital Signs: Last Vital Signs Temp 98.2 F 04/19/22 12:12 Pulse 51 04/19/22 14:38 Resp 16 04/19/22 14:38 BP 160/86 H 04/19/22 14:38 Pulse Ox 97 04/19/22 14:38 BMI result Body Mass Index 32.8 vital signs have been reviewed as normal and appeared to be correct. Blood pressure 147/78. Heart rate normal. Respiration rate normal. Temperature normal. Oxygen saturation normal. Appearance: Alert. Oriented X3. No acute distress. Head: Normal external exam. Normocephalic. Atraumatic. Eyes: PERRLA. EOMI. Conjunctiva and sclera normal. Eyelids normal. ENT: Pharynx normal. Uvula midline. Moist mucous membranes. No lesions/ulcerations or masses noted on the tongue. Normal voice. No trismus noted. No drooling noted. No muffled voice noted. Neck: Normal inspection. Neck supple. FROM. No adenopathy. Thyroid Normal. No meningeal signs. CVS: Normal heart rate and rhythm. Heart sound normal. Pulses normal throughout. No murmurs/rales/gallops. Respiratory: No respiratory distress. Painless inspiration. Breath sounds normal. No wheezes/rales/rhonchi noted. Chest nontender. No crepitus is noted. No signs of trauma noted. No accessory muscle usage noted or decreased air movement noted. No signs of trauma. Abdomen: Soft and nontender. Bowel sounds normal in all 4 quadrants. No distention noted. No organomegaly noted. No visible injury noted. Back: No CVA tenderness. Full range of motion noted. Nontender. No signs of trauma. Patient neuro intact bilaterally and distally on all 4 extremities. Patient's reflexes intact bilaterally and distally on all 4 extremities. No rashes/lesion/induration/fluctuance or signs of infection noted. Skin: Skin warm and dry. Normal skin color. Normal skin turgor. No rashes/lesions/lacerations noted. Extremities: No lower extremity edema. No calf tenderness is noted. Extremities exhibit normal range of motion and nontender. Neuro: Oriented X 3. No motor deficit. No sensory deficit. Reflexes normal. Normal steady gait. No focal neuro deficits noted. CN's II-XII intact bilaterally? Vascular: + radial pulses/+ 2 distal pedal pulses/+2 dorsalis pedis b/l. Normal cap refill. No cyanosis noted to upper extremity nails and lower extremity toes nails. Course Course Course Narrative: 13:40pm 46-year-old male with a past medical history of GERD, diabetes, hypertension, hyperlipidemia, obesity and BPH presenting to the ED with complaints of intermittent chest pain over the past few days. Reports that he was seen here on 04/17/2022 and was instructed to have a repeat troponin due to his troponin was 11.6 although he left because he did not want to wait any longer although is here today because he reports that his chest pain has been intermittent since he left here and he is concerned because they told him that he needed a repeat troponin due to the elevated troponin. He reports that he believes it is GERD and he is taking his GERD medication. Not consistent with cholelithiasis due to patient reports he does not have abdominal pain nausea/ vomiting and when I reviewed the patient's last ultrasound approximately 1 year ago there was no evidence of gallstones and he reports that he follows up with a lump inspector and they also told that he does not have gallstones. Plan: labs, EKG, chest x-ray and re-evaluate. Reevaluation(s) Reevaluation #1: - labs reviewed and carbon dioxide 31. BUN 19. Troponin 11.8. Repeat 12.5 which is negative delta. Therefore at this time patient with atypical chest pain. Or GERD. Will DC home with instructions to return if any new or worsening symptoms and to follow up with primary care provider and continue taking his medications as previously prescribed. Patient understands agrees with this plan. Time: 17:04 [facility] - Chest Pain Medical Records Data Attestation: I reviewed the patient's medical records. Lab Data Attestation: I reviewed the patient's lab results. Result diagrams: 04/19/22 14:02 04/19/22 14:02 Labs: Lab Results 04/19/22 04/19/22 04/19/22 Range/Units 14:02 14:02 14:02 WBC 8.7 (4.8-10.8) X10*3/uL RBC 5.31 (4.60-5.80) X10*6/uL Hgb 15.2 (14.0-18.0) g/dl Hct 44.5 (42.0-52.0) % MCV 83.8 (80.0-98.0) fL MCH 28.6 (27.0-33.0) pg MCHC 34.2 (31.0-36.0) g/dl RDW 12.9 (11.0-16.0) % Plt Count 278 (160-400) X10*3/uL MPV 10.4 (9.4-12.4) fL Immature Gran % (Auto) 0.2 (0.0-0.4) % Neut % (Auto) 57.2 (45-73) % Lymph % (Auto) 33.9 (20-40) % [place] % (Auto) 6.9 (2-11) % Eos % (Auto) 1.3 (0-4) % Baso % (Auto) 0.5 (0-2) % Lymph # (Auto) 3.0 (1.2-4.9) X10*3/uL [place] # (Auto) 0.6 (0.1-1.2) X10*3/uL Eos # (Auto) 0.1 (0.0-0.4) X10*3/uL Baso # (Auto) 0.0 (0.0-0.2) X10*3/uL Abs Immat Gran (auto) 0.02 (0.00-0.03) X10*3/uL Absolute Neuts (auto) 5.0 (2.0-8.3) x10*3/uL Absolute Nucleated RBC 0.000 (0.0-0.012) X10*3/uL Nucleated RBC % (auto) 0.0 (0.0-0.2) /100WBC Sodium 141 (135-145) mmol/L Potassium 4.5 (3.3-5.1) mmol/L Chloride 103 (96-108) mmol/L Carbon Dioxide 31 H (22-29) mmol/L Anion Gap 12 (12-20) BUN 19 H (9-16) mg/dL Creatinine 1.07 (0.5-1.4) mg/dL Estim Creat Clear Calc 98.7 Estimated GFR > 60 Random Glucose 91 (60-115) mg/dL Calcium 10.0 D (8.4-10.2) mg/dL Magnesium 2.5 (1.6-2.6) mg/dL Total Bilirubin 0.4 (0.0-1.0) mg/dL AST 19 (5-37) U/L ALT 20 (0-40) U/L Alkaline Phosphatase 66 (39-117) U/L Troponin I High Sens 11.8 (<3.5-35.0) ng/L Total Protein 7.8 (6.5-8.0) g/dL Albumin 4.6 (3.5-5.0) g/dL 04/19/22 Range/Units 16:25 WBC (4.8-10.8) X10*3/uL RBC (4.60-5.80) X10*6/uL Hgb (14.0-18.0) g/dl Hct (42.0-52.0) % MCV (80.0-98.0) fL MCH (27.0-33.0) pg MCHC (31.0-36.0) g/dl RDW (11.0-16.0) % Plt Count (160-400) X10*3/uL MPV (9.4-12.4) fL Immature Gran % (Auto) (0.0-0.4) % Neut % (Auto) (45-73) % Lymph % (Auto) (20-40) % [place] % (Auto) (2-11) % Eos % (Auto) (0-4) % Baso % (Auto) (0-2) % Lymph # (Auto) (1.2-4.9) X10*3/uL [place] # (Auto) (0.1-1.2) X10*3/uL Eos # (Auto) (0.0-0.4) X10*3/uL Baso # (Auto) (0.0-0.2) X10*3/uL Abs Immat Gran (auto) (0.00-0.03) X10*3/uL Absolute Neuts (auto) (2.0-8.3) x10*3/uL Absolute Nucleated RBC (0.0-0.012) X10*3/uL Nucleated RBC % (auto) (0.0-0.2) /100WBC Sodium (135-145) mmol/L Potassium (3.3-5.1) mmol/L Chloride (96-108) mmol/L Carbon Dioxide (22-29) mmol/L Anion Gap (12-20) BUN (9-16) mg/dL Creatinine (0.5-1.4) mg/dL Estim Creat Clear Calc Estimated GFR Random Glucose (60-115) mg/dL Calcium (8.4-10.2) mg/dL Magnesium (1.6-2.6) mg/dL Total Bilirubin (0.0-1.0) mg/dL AST (5-37) U/L ALT (0-40) U/L Alkaline Phosphatase (39-117) U/L Troponin I High Sens 12.5 (<3.5-35.0) ng/L Total Protein (6.5-8.0) g/dL Albumin (3.5-5.0) g/dL Imaging Data Chest x-ray: Attestation: I personally reviewed and interpreted this imaging study as follows: Radiologist's impression: FINDINGS: Cardiac silhouette is normal in size. The lungs are adequately aerated. There is no lobar consolidation. No pleural effusion or pneumothorax. No gross osseous abnormality. XR/XR chest 2V IMPRESSION: Stable examination demonstrating no acute pulmonary pathology. ECG Data ECG #1: Attestation: I personally reviewed and interpreted this ECG as follows: ECG interpretation date: 04/19/22 ECG interpretation time: 14:40 Discharge Plan Discharge Clinical Impression: Atypical chest pain, GERD (gastroesophageal reflux disease) Patient Disposition: Home, Self-Care Instructions: Noncardiac Chest Pain (ED), Gastroesophageal Reflux Disease (ED) Prescriptions: No Action glipizide 5 mg tablet 5 mg PO DAILY Qty: 90 8RF lisinopril 10 mg tablet 10 mg PO DAILY Qty: 90 8RF fluticasone propionate [Flonase Allergy Relief] 50 mcg/actuation spray,suspension 1 spray intranasal BID Qty: 16 3RF Rx Instructions: administer into each nostril peg 3350-electrolytes [Golytely] 236-22.74-6.74 -5.86 gram recon soln 240 ml PO Q10M 1 Days Qty: 4000 0RF Rx Instructions: until fecal effluent is clear; do not exceed a total volume of 2,000 mL Trulance 3 mg tablet 3 mg PO DAILY Qty: 30 3RF Hold Instructions: Doctor's Order Linzess 145 mcg capsule 145 mcg PO QAM Qty: 30 6RF esomeprazole magnesium 40 mg capsule,delayed release(DR/EC) 40 mg PO DAILY Qty: 30 6RF Referrals: Da Eckert MD [Primary Care Provider] - 2 days Stand Alone Forms: Work/School Release
[2022-04-19 16:53] LABS: Troponin-I High Sensitivity 12.5 ng/L (<3.5-35.0)
== END 2022-04-19 17:15 | disposition home or self-care (01) ==
PROVIDERS: Physician Assistant Medical; Emergency Provider Student in an Organized Health Care Education/Training Program; PCP Internal Medicine
DX: R07.89 Other chest pain (principal); K21.9 Gastro-esophageal reflux disease without esophagitis; E11.9 Type 2 diabetes mellitus without complications; I10 Essential (primary) hypertension; E78.5 Hyperlipidemia, unspecified
CPT/HCPCS: 36415; 71046; 80053; 83735; 84484; 85025; 93005; 99283

== ENCOUNTER → 2022-04-29 14:13 | Outpatient (BNVA) | payer OTHER, SELFPAY | PROVIDERS: PCP Internal Medicine; Visit Provider Nurse Practitioner | DX: Z12.11 Encounter for screening for malignant neoplasm of colon (principal); K59.04 Chronic idiopathic constipation; K21.9 Gastro-esophageal reflux disease without esophagitis; Z80.0 Family history of malignant neoplasm of digestive organs | CPT/HCPCS: 99212 ==

== ENCOUNTER 2022-06-17 18:49 | Emergency (ER) | payer OTHER, SELFPAY ==
[2022-06-17 19:19] VITALS: BP 132/93; PULSE 56; RESP 16; TEMP 36.8; O2SAT 96; BMI 31.0
[2022-06-17 19:47] LABS: MANUAL DIFF FLAG NO
[2022-06-17 19:48] LABS: Basophils Percent Auto 0.4 % (0-2); Eosinophils Absolute Auto 0.1 X10*3/uL (0.0-0.4); Eosinophils Percent Auto 1.6 % (0-4); Hematocrit 42.5 % (42.0-52.0); Hemoglobin 14.7 g/dl (14.0-18.0); Lymphocytes Absolute Auto 3.4 X10*3/uL (1.2-4.9); Mean Corpuscular HGB Conc 34.6 g/dl (31.0-36.0); Mean Corpuscular Hemoglobin 28.1 pg (27.0-33.0); Mean Corpuscular Volume 81.3 fL (80.0-98.0); Mean Platelet Volume 10.3 fL (9.4-12.4); Monocytes Absolute Auto 0.5 X10*3/uL (0.1-1.2); Monocytes Percent Auto 7.2 % (2-11); Neutrophils Absolute Auto 3.4 x10*3/uL (2.0-8.3); Neutrophils Percent Auto 45.8 % (45-73); Platelet Count 270 X10*3/uL (160-400); Red Blood Count 5.23 X10*6/uL (4.60-5.80); Red Cell Distribution Width 12.7 % (11.0-16.0); White Blood Count 7.5 X10*3/uL (4.8-10.8)
[2022-06-17 20:04] LABS: Alanine Aminotransferase 19 U/L (0-40); Albumin Level 4.4 g/dL (3.5-5.0); Alkaline Phosphatase 69 U/L (39-117); Anion Gap 13 (12-20); Aspartate Amino Transferase 17 U/L (5-37); Bilirubin Total 0.3 mg/dL (0.0-1.0); Blood Urea Nitrogen 13 mg/dL (9-16); Calcium 9.5 mg/dL (8.4-10.2); Carbon Dioxide 26 mmol/L (22-29); Chloride 103 mmol/L (96-108); Creatinine Clr Calc Pharmacy 74.8; Estimated Glomerular Filt Rate 56; Glucose Random 164 mg/dL (60-115); Lipase 36 U/L (8-78); Potassium 4.1 mmol/L (3.3-5.1); Sodium 138 mmol/L (135-145); Total Protein 7.8 g/dL (6.5-8.0)
[2022-06-17 20:10] LABS: Troponin-I High Sensitivity 13.9 ng/L (<3.5-35.0)
--- NOTE | 2022-06-18 00:40 | PC.NURSE ---
pt c/o dyspepsia, annd bloating, omeprazole with no relief. PCP prescribed stool softner.
--- NOTE | 2022-06-18 00:50 | ECG_ITS ---
Test Reason : cp Blood Pressure : / mmHG Vent. Rate : 048 BPM Atrial Rate : 048 BPM P-R Int : 158 ms QRS Dur : 102 ms QT Int : 414 ms P-R-T Axes : 058 -11 -01 degrees QTc Int : 369 ms Sinus bradycardia Minimal voltage criteria for LVH, may be normal variant ( R in aVL ) Borderline ECG When compared with ECG of 19-APR-2022 12:07, No significant change was found Referred By: Radha Turk Electronically Signed By:FRANCISCO POSEY MD
--- NOTE | 2022-06-18 00:52 | ED.ABDPAIN ---
HPI - Abdominal Pain General Chief Complaint: Abdominal Pain Stated Complaint: gerd Time Seen by Provider: 06/18/22 00:48 History of Present Illness HPI narrative: Patient is a 47-year-old male with a history of reflux in the past. Patient's baseline is on omeprazole. Decided to take spirits and ND fried chicken. Subsequently has pain burning up to his throat worse when he lies down. Improves when he sits up. Not associated with shortness of breath there is no diaphoresis. The patient has a history of hypertension, diabetes, grossly larger in size. He has no history of smoking. No history of [place]. Patient from home. He denies any change in bowel movement. There is no abdominal surgery in the past. Pain is exactly the same as previous episodes. It is burning in nature. Patient claims wants a drink to make it all better. Patient had a liquid medication for this in the past. MD elicited complaint: abdominal pain Related Data Previous Rx's Medication Instructions Recorded glipizide 5 mg tablet 5 mg PO DAILY #90 tabs 09/07/21 lisinopril 10 mg tablet 10 mg PO DAILY #90 tabs 11/30/21 fluticasone propionate 50 1 spray intranasal BID #16 grams 03/22/22 mcg/actuation nasal spray,suspension (Flonase Allergy Relief) linaclotide 145 mcg capsule 145 mcg PO QAM #30 caps 03/30/22 (Linzess) peg 3350-electrolytes 236 240 ml PO Q10M 1 day #4,000 mL 04/29/22 gram-22.74 gram-6.74 gram-5.86 gram solution (Golytely) esomeprazole magnesium 40 mg 40 mg PO DAILY #30 caps 05/10/22 capsule,delayed release amoxicillin 250 mg capsule 1,000 mg PO ONCE #4 caps 06/07/22 Allergies Allergy/AdvReac Type Severity Reaction Status Date / Time sulfamethoxazole Allergy Mild RASH Verified 06/17/22 19:22 [From BACTRIM] trimethoprim [From BACTRIM] Allergy Mild RASH Verified 06/17/22 19:22 fish Allergy Unknown rash, Verified 06/17/22 19:22 redness morphine [MORPHINE] Allergy Unknown NAUSEA & Verified 06/17/22 19:22 VOMITING, vomiting Sulfa (Sulfonamide Allergy Unknown rash Verified 06/17/22 19:22 Antibiotics) Fish Containing Products AdvReac Unknown WORSENS Verified 06/17/22 19:22 GOUT SYMPTOMS Review of Systems Review of Systems Positive epigastric pain Yes all other systems are reviewed and are negative [facility] Past Medical History Attestation statement: The following information was validated with the patient. Medical History Chronic GERD Cough COVID-19 Diabetes Diabetes mellitus Diabetes mellitus with coincident hypertension Dysuria Obesity Physical exam Sinus infection Surgical History H/O colonoscopy H/O total hip arthroplasty H/O wrist surgery History of tonsillectomy History of umbilical hernia repair History of wisdom tooth extraction Family History Family History Father No problems noted. Mother Colon cancer Diabetes Hypertension Family/Other Diabetes Hypertension Social History Social History Housing: Apartment Alcohol intake: never Patient Tobacco Use Status: Never used Tobacco e-Cigarette/Vaping Use: Never Used Second Hand Smoke Exposure: Yes Advance Directives: No Advance Directives Information Provided: No service: No Current occupational status: disabled Current occupational exposures/hazards: No Cognitive needs: No Hearing needs: No Vision needs: Yes Physical Exam ED Vital Signs: Vital Signs - 24 hr 06/17/22 19:19 Temperature 98.2 F Pulse Rate 56 Respiratory Rate 16 Blood Pressure 132/93 H Pulse Oximetry 96 Oxygen Delivery Method Room Air BMI result Body Mass Index 31.0 Appearance: Alert. Oriented X3. No acute distress. Eyes: Pupils equal, round and reactive to light. ENT: Pharynx normal. Neck: Normal inspection. Neck supple. No lymph nodes noted. No crepitus CVS: Normal heart rate and rhythm. Pulses normal. Normal S1 and S2 Respiratory: No respiratory distress. Breath sounds normal. No Wheezing. No rales Abdomen: Soft and nontender. No rigidity. No distention. good BS x4 Skin: Skin warm and dry. Normal skin color. Normal skin turgor. Extremities: No lower extremity edema. Neurovascular intact to all extremities. No Lacerations. No Rash Neuro: Oriented X 3. No motor deficit. No sensory deficit. Moving all extermities. No slurred speech MDM - Abdominal Pain MDM Narrative Medical decision making narrative: Patient has epigastric pain atypical for ACS. Troponin is negative. Positive burning sensation. Positive history of diabetes, hypertension. No history of [place]. One set enzyme were negative as patient's pain has been consistent since approximately 15:00 today. Unlikely secondary to ACS. An EKG is currently pending. Patient's EKG showed a sinus pattern heart rate is 50 KS QRS QT within normal limits is no acute ST segment elevation present the troponin is negative in the setting of having pain since 15:00 today patient unlikely to have ACS. History not consistent. Patient told to stop eating fatty food. Told to closely follow up on an outpatient basis. Medical Records Attestation: I reviewed the patient's medical records. Lab Data Attestation: I reviewed the patient's lab results. Result diagrams: 06/17/22 19:41 06/17/22 19:41 Labs: Lab Results 06/17/22 06/17/22 06/17/22 Range/Units 19:41 19:41 19:41 WBC 7.5 (4.8-10.8) X10*3/uL RBC 5.23 (4.60-5.80) X10*6/uL Hgb 14.7 (14.0-18.0) g/dl Hct 42.5 (42.0-52.0) % MCV 81.3 (80.0-98.0) fL MCH 28.1 (27.0-33.0) pg MCHC 34.6 (31.0-36.0) g/dl RDW 12.7 (11.0-16.0) % Plt Count 270 (160-400) X10*3/uL MPV 10.3 (9.4-12.4) fL Immature Gran % (Auto) 0.0 (0.0-0.4) % Neut % (Auto) 45.8 (45-73) % Lymph % (Auto) 45.0 H (20-40) % [place] % (Auto) 7.2 (2-11) % Eos % (Auto) 1.6 (0-4) % Baso % (Auto) 0.4 (0-2) % Lymph # (Auto) 3.4 (1.2-4.9) X10*3/uL [place] # (Auto) 0.5 (0.1-1.2) X10*3/uL Eos # (Auto) 0.1 (0.0-0.4) X10*3/uL Baso # (Auto) 0.0 (0.0-0.2) X10*3/uL Abs Immat Gran (auto) 0.00 (0.00-0.03) X10*3/uL Absolute Neuts (auto) 3.4 (2.0-8.3) x10*3/uL Absolute Nucleated RBC 0.000 (0.0-0.012) X10*3/uL Nucleated RBC % (auto) 0.0 (0.0-0.2) /100WBC Sodium 138 (135-145) mmol/L Potassium 4.1 (3.3-5.1) mmol/L Chloride 103 (96-108) mmol/L Carbon Dioxide 26 (22-29) mmol/L Anion Gap 13 (12-20) BUN 13 (9-16) mg/dL Creatinine 1.36 (0.5-1.4) mg/dL Estim Creat Clear Calc 74.8 Estimated GFR 56 Random Glucose 164 H D (60-115) mg/dL Calcium 9.5 (8.4-10.2) mg/dL Total Bilirubin 0.3 (0.0-1.0) mg/dL AST 17 (5-37) U/L ALT 19 (0-40) U/L Alkaline Phosphatase 69 (39-117) U/L Troponin I High Sens 13.9 (<3.5-35.0) ng/L Total Protein 7.8 (6.5-8.0) g/dL Albumin 4.4 (3.5-5.0) g/dL Lipase 36 (8-78) U/L Discharge Plan Discharge Clinical Impression: Chest pain, Acid reflux Patient Disposition: Home, Self-Care Instructions: Chest Pain (DC), Gastroesophageal Reflux Disease (ED) Additional Instructions: Please ate fried spicy foods, greasy food in moderation. Please closely follow-up with your doctor on an outpatient basis. Prescriptions: No Action glipizide 5 mg tablet 5 mg PO DAILY Qty: 90 8RF lisinopril 10 mg tablet 10 mg PO DAILY Qty: 90 8RF fluticasone propionate [Flonase Allergy Relief] 50 mcg/actuation spray,suspension 1 spray intranasal BID Qty: 16 3RF Rx Instructions: administer into each nostril amoxicillin 250 mg capsule 1,000 mg PO ONCE Qty: 4 0RF esomeprazole magnesium 40 mg capsule,delayed release(DR/EC) 40 mg PO DAILY Qty: 30 6RF Linzess 145 mcg capsule 145 mcg PO QAM Qty: 30 6RF peg 3350-electrolytes [Golytely] 236-22.74-6.74 -5.86 gram recon soln 240 ml PO Q10M 1 Days Qty: 4000 0RF Rx Instructions: until fecal effluent is clear; do not exceed a total volume of 2,000 mL Referrals: Da Eckert MD [Primary Care Provider] -
[2022-06-18] MEDS: Magnesium Hydrox/Alum Hydrox 30 ML ORAL.SUSP PO (01:21)
[2022-06-18] MEDS: Lidocaine HCl Viscous 2 % 15 ML SOLUTION MUCOUS MEM (01:21)
[2022-06-18] MEDS: PHENobarb/Hyoscy/Atropine/Scop 10 ML ELIXIR PO (01:21)
[2022-06-18 01:40] VITALS: PULSE 65; RESP 16
== END 2022-06-18 02:00 | disposition home or self-care (01) ==
PROVIDERS: Emergency Provider Emergency Medicine Emergency Medical Services; PCP Internal Medicine
DX: R07.9 Chest pain, unspecified (principal); K21.9 Gastro-esophageal reflux disease without esophagitis; I10 Essential (primary) hypertension; E11.9 Type 2 diabetes mellitus without complications
CPT/HCPCS: 36415; 80053; 83690; 84484; 85025; 93005; 99283; 99284; 99285

== ENCOUNTER 2022-06-19 07:38 | Outpatient (REF) | payer OTHER, SELFPAY ==
[2022-06-19 08:22] LABS: Glucose Fasting 146 mg/dL (60-99)
[2022-06-19 08:23] LABS: Estimated Average Glucose 160 mg/dL; Hemoglobin A1c % 7.2 %
== END 2022-06-19 07:39 | disposition home or self-care (01) ==
LOC: HO.LAB 07:38
PROVIDERS: PCP Internal Medicine; Visit Provider Internal Medicine
DX: E11.65 Type 2 diabetes mellitus with hyperglycemia (principal)
CPT/HCPCS: 36415; 82947; 83036

== ENCOUNTER 2022-09-02 08:51 | Day surgery (SDC) | payer OTHER, SELFPAY ==
--- NOTE | 2022-09-01 08:33 | HO.ANESPROP2 ---
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 Mother Colon cancer Diabetes Hypertension Family/Other Diabetes Hypertension Surgical History Surgical History (Updated 08/27/22 @ 15:37 by Mey Blackman RN) H/O colonoscopy H/O total hip arthroplasty H/O wrist surgery History of esophagogastroduodenoscopy (EGD) History of tonsillectomy History of umbilical hernia repair History of wisdom tooth extraction Social History Social History Housing: Apartment Alcohol intake: never Patient Tobacco Use Status: Never used Tobacco e-Cigarette/Vaping Use: Never Used Second Hand Smoke Exposure: Yes service: No Current occupational status: disabled Current occupational exposures/hazards: No Cognitive needs: No Hearing needs: No Vision needs: Yes Meds Allergies Allergy/AdvReac Type Severity Reaction Status Date / Time lisinopril Allergy Mild Closed Verified 08/27/22 11:46 throat sulfamethoxazole Allergy Mild RASH Verified 08/27/22 11:46 [From BACTRIM] trimethoprim [From BACTRIM] Allergy Mild RASH Verified 08/27/22 11:46 fish Allergy Unknown rash, Verified 08/27/22 11:46 redness morphine [MORPHINE] Allergy Unknown NAUSEA & Verified 08/27/22 11:46 VOMITING, vomiting Sulfa (Sulfonamide Allergy Unknown rash Verified 08/27/22 11:46 Antibiotics) Fish Containing Products AdvReac Unknown WORSENS Verified 08/27/22 11:46 GOUT SYMPTOMS Exam Exam Date and Time: September 01, 2022 0833 Pertinent Lab Results Pertinent Lab Results: Laboratory Tests 06/17/22 06/17/22 19:41 19:41 WBC 7.5 Hgb 14.7 Hct 42.5 Plt Count 270 Sodium 138 Potassium 4.1 Chloride 103 Carbon Dioxide 26 BUN 13 Creatinine 1.36 Narrative Narrative: EKG 07/2022 Vent. Rate : 048 BPM ? ? Atrial Rate : 048 BPM ?? P-R Int : 158 ms? QRS Dur : 102 ms ? ? QT Int : 414 ms ? ? ? P-R-T Axes : 058 -11 -01 degrees ?? QTc Int : 369 ms ? Sinus bradycardia Minimal voltage criteria for LVH, may be normal variant ( R in aVL ) Borderline ECG When compared with ECG of 19-APR-2022 12:07, No significant change was found Assessment and Plan Assessment Anesthesia Assessment: Chart Reviewed Documented by User: Freddy Salvador MD 09/02/22 17:54 [facility] Past Medical History Medical History (Updated 08/28/22 @ 09:11 by Jack Robles MD) Avascular necrosis of bone of hip Chronic GERD Cough COVID-19 Diabetes Diabetes mellitus Diabetes mellitus with coincident hypertension Dysuria History of cardiac murmur Obesity Sinus infection Functional capacity: independent ambulation Family History Family History Father No problems noted. Mother Colon cancer Diabetes Hypertension Family/Other Diabetes Hypertension Family history of problems with anesthesia: No Surgical History Surgical History (Updated 08/27/22 @ 15:37 by Mey Blackman RN) H/O colonoscopy H/O total hip arthroplasty H/O wrist surgery History of esophagogastroduodenoscopy (EGD) History of tonsillectomy History of umbilical hernia repair History of wisdom tooth extraction History of Problems with Anesthesia: No Social History Social History Housing: Apartment Alcohol intake: never Patient Tobacco Use Status: Never used Tobacco e-Cigarette/Vaping Use: Never Used Second Hand Smoke Exposure: Yes service: No Current occupational status: disabled Current occupational exposures/hazards: No Cognitive needs: No Hearing needs: No Vision needs: Yes Meds Allergies Allergy/AdvReac Type Severity Reaction Status Date / Time lisinopril Allergy Mild Closed Verified 08/27/22 11:46 throat sulfamethoxazole Allergy Mild RASH Verified 08/27/22 11:46 [From BACTRIM] trimethoprim [From BACTRIM] Allergy Mild RASH Verified 08/27/22 11:46 fish Allergy Unknown rash, Verified 08/27/22 11:46 redness morphine [MORPHINE] Allergy Unknown NAUSEA & Verified 08/27/22 11:46 VOMITING, vomiting Sulfa (Sulfonamide Allergy Unknown rash Verified 08/27/22 11:46 Antibiotics) Fish Containing Products AdvReac Unknown WORSENS Verified 08/27/22 11:46 GOUT SYMPTOMS Exam Airway Mallampati Class: IV TM Dist: >3cm Loose/Missing/Broken Teeth: Yes (Fillings) Heart: S1,S2 Lungs: b/l breath sounds Assessment and Plan Assessment Anesthesia Assessment: Anesthesia Plan Discussed Final Anesthetic Review Family History of Problems with Anesthesia: No History of Problems with Anesthesia: No NPO: Yes ASA Class: III Final Preanesthetic Review: Meds/Allgs Chart Reviewed, Consent Obtained/Reviewed and Anes Risks/Benef Reviewed Patient Risk: Intermediate Procedure Risk: Intermediate Anesthetic Plan Anesthetic Plan: MAC: Disposition: Standard PACU
--- NOTE | 2022-09-02 08:56 | MHC.SHP ---
Pre-Procedural Eval Section A Date of Service: 09/02/22 Section B Chief Complaint: Chronic idiopathic constipation,hx malignant neopl Relevant Family History (Specify if Yes): Yes Relevant Social History: None Present Medications: see Short Stay Collaborative assessment Medical History: Significant History (Avascular necrosis of bone of hip Chronic GERD Cough COVID-19 Diabetes Diabetes mellitus Diabetes mellitus with coincident hypertension Dysuria History of cardiac murmur Obesity Sinus infection) History of Previous Operations: Relevant previous surgery/procedure and date(s) (H/O colonoscopy H/O total hip arthroplasty H/O wrist surgery History of esophagogastroduodenoscopy (EGD) History of tonsillectomy History of umbilical hernia repair History of wisdom tooth extraction) Allergies: Allergies Allergy/AdvReac Type Severity Reaction Status Date / Time lisinopril Allergy Mild Closed Verified 08/27/22 11:46 throat sulfamethoxazole Allergy Mild RASH Verified 08/27/22 11:46 [From BACTRIM] trimethoprim [From BACTRIM] Allergy Mild RASH Verified 08/27/22 11:46 fish Allergy Unknown rash, Verified 08/27/22 11:46 redness morphine [MORPHINE] Allergy Unknown NAUSEA & Verified 08/27/22 11:46 VOMITING, vomiting Sulfa (Sulfonamide Allergy Unknown rash Verified 08/27/22 11:46 Antibiotics) Fish Containing Products AdvReac Unknown WORSENS Verified 08/27/22 11:46 GOUT SYMPTOMS Review of Systems Sugical H&P ROS: Negative: Constitution, Cardiovascular, Respiratory, Neurological, Psychiatric, Hem-Onc, Allergic/Immunologic, Gastrointestinal, Genitourinary, Musculoskeletal, Integumentary, Endocrine and Eyes/Ears/Nose/Throat Exam Surgical H&P Exam: Normal: HEENT, Normal: Heart, Normal: Lungs, Normal: Extremities, Normal: Abdomen, Normal: Skin and Normal: Neurological Plan Diagnosis/Plan: Unchanged I have reviewed the history and physical and performed a pertinent physical examination on my patient. No changes have occurred unless specified.
[2022-09-02 09:23] VITALS: BP 175/84; PULSE 56; RESP 16; TEMP 36.3; O2SAT 97; BMI 32.5
[2022-09-02 09:25] LABS: Glucose, Whole Blood 127 mg/dL (60-115)
[2022-09-02] MEDS: Lactated Ringers 1,000 ML 100 ML IVCONT (09:29)
--- NOTE | 2022-09-02 10:26 | W.PM.OPN ---
Operative Note Operative Note Date of Service: 09/02/22 Narrative: Operative Information Procedure Description: Colonoscopy Indication: screening, pos FH of CRC Anesthesia: MAC COLONOSCOPY Instrument: Olympus variable stiffness pediatric scope 190L Colonoscopy Monitoring: Vital signs and clinical assessment, continuous EKG monitoring, Pulse oximetry, Carbon Dioxide monitoring and blood pressure monitoring were done throughout the procedure. Colon withdrawal time was 10 minutes. Procedure: The patient was placed in the left lateral decubitis position and pre-procedure medications were administered. After a digital rectal examination of the ano-rectum, the video colonoscope was inserted into the rectum and advanced through the colon to the cecum/TI. The colonoscope was slowly withdrawn in a retrograde panoramic fashion and the colon mucosa was carefully examined including a retroflexed view of the rectum. Findings and interventions are described below. Procedure Difficulty: easy Findings: Terminal Ileum-normal Right sided retroflexion-normal Cecum:normal Ascending Colon: normal Transverse Colon -normal Descending Colon:normal Sigmoid Colon: 6-8 mm sessile polyp removed with cold snare Rectum: Retroflexion with medium sized internal hemorrhoids, grade II with red morin Anorectum - normal Colon preparation: Hendrum Bowel Preparation Scale Right colon; 3 Transverse colon: 3 Left colon; 3 (0 = Unprepared colon segment with mucosa not seen due to solid stool that cannot be cleared. 1 = Portion of mucosa of the colon segment seen, but other areas of the colon segment not well seen due to staining, residual stool and/or opaque liquid. 2 = Minor amount of residual staining, small fragments of stool and/or opaque liquid, but mucosa of colon segment seen well. 3 = Entire mucosa of colon segment seen well with no residual staining, small fragments of stool or opaque liquid) Impression and Post Procedure Diagnosis: polyp internal hemorrhoids Plan: High fiber diet leaflet Avoid straining at stool, epsom salts and sitz bath, anusol supps or cream Repeat Colonoscopy in 5 years due to FH of CRC or earlier if clinically indicated Above findings were reviewed with the patient and relevant handouts were provided if indicated.
[2022-09-02 11:09] VITALS: BP 104/59; PULSE 59; RESP 15; TEMP 36.2; O2SAT 97
[2022-09-02 11:23] VITALS: BP 132/75; PULSE 53; RESP 18; TEMP 36.7; O2SAT 95
== END 2022-09-02 11:59 | disposition home or self-care (01) ==
PROVIDERS: PCP Internal Medicine; Visit Provider Internal Medicine Gastroenterology
PROC: 0DJD8ZZ Inspection of Lower Intestinal Tract, Via Natural or Artificial Opening Endoscopic (ICD-10-PCS; CPT 45378; principal; 2022-09-02 10:50)
DX: Z12.11 Encounter for screening for malignant neoplasm of colon (principal); Z80.0 Family history of malignant neoplasm of digestive organs; K63.5 Polyp of colon; K59.04 Chronic idiopathic constipation; K64.1 Second degree hemorrhoids; M87.859 Other osteonecrosis, unspecified femur; K21.9 Gastro-esophageal reflux disease without esophagitis; E11.59 Type 2 diabetes mellitus with other circulatory complications; I10 Essential (primary) hypertension; Z79.84 Long term (current) use of oral hypoglycemic drugs; Z79.899 Other long term (current) drug therapy; Z88.2 Allergy status to sulfonamides; Z88.8 Allergy status to other drugs, medicaments and biological substances; Z86.16 Personal history of COVID-19
CPT/HCPCS: 45385; 82947; 88305; J2765

== ENCOUNTER → 2022-09-08 14:42 | Outpatient (BNVA) | payer OTHER, SELFPAY | PROVIDERS: PCP Internal Medicine; Visit Provider Nurse Practitioner | DX: K59.04 Chronic idiopathic constipation (principal); K21.9 Gastro-esophageal reflux disease without esophagitis; K30 Functional dyspepsia; Z80.0 Family history of malignant neoplasm of digestive organs; M87.059 Idiopathic aseptic necrosis of unspecified femur | CPT/HCPCS: 99212 ==

== ENCOUNTER 2022-09-10 18:03 | Emergency (ER) | payer OTHER, SELFPAY ==
[2022-09-10 18:05] VITALS: BP 156/72; PULSE 58; RESP 20; TEMP 36.2; O2SAT 96; BMI 33.6
[2022-09-10 18:31] LABS: COVID-19 Test Negative (Negative); IDNOW Serial# 16C4AD1C
[2022-09-10 18:37] LABS: Influenza A Negative (Negative); Influenza B2 Negative (Negative)
--- NOTE | 2022-09-10 18:59 | ED_ITS ---
HPI - General Adult General Chief complaint: Upper Respiratory Symptoms Stated complaint: sinus infection Time Seen by Provider: 09/10/22 18:58 Source: patient Mode of arrival: ambulatory Limitations: no limitations History of Present Illness HPI narrative: Patient is a 47 year old assigned male at with a history of diabetes and HTN presenting to the emergency department today with sinus pressure. Patient states that over the last 3 days, he has had sinus pressure. Patient states that he gets sinus infections often and has followed up with an ENT who does not seem to want to operate for chronic sinusitis. Patient denies any dizziness, lightheadedness, abdominal pain, nausea, vomiting, fever, chills, blurry vision, double vision, loss of vision, chest pain, difficulty breathing, shortness of breath, back pain, night sweats, pain with urination, increased urinary frequency, increased urinary urgency, blood in his urine or stool, syncope or a near syncopal episode, recent trauma or falls, bowel incontinence, bladder incontinence, bowel retention, bladder retention, or any other complaints at this time. Onset (ago): day(s) (3) Location: face Radiation: non-radiation Severity: mild Severity scale (1-10): 3 Quality: dull Pain Consistency: constant Relieving factors: none Exacerbating factors: none Associated symptoms: denies other symptoms Treatments prior to arrival: none Related Data Previous Rx's Medication Instructions Recorded glipizide 5 mg tablet 5 mg PO DAILY #90 tabs 09/07/21 esomeprazole magnesium 40 mg 40 mg PO DAILY #30 caps 05/10/22 capsule,delayed release fluticasone propionate 50 1 spray intranasal BID #16 grams 07/07/22 mcg/actuation nasal spray,suspension (Flonase Allergy Relief) ergocalciferol (vitamin D2) 1,250 1,250 mcg PO QWEEK #12 caps 07/12/22 mcg (50,000 unit) capsule amlodipine 2.5 mg tablet 2.5 mg PO DAILY 30 days #30 tabs 08/27/22 hydrocortisone 2.5 % topical cream 1 appl topical BID PRN skin 08/27/22 irritation #20 grams famotidine 40 mg tablet (Pepcid) 40 mg PO BEDTIME #30 tabs 09/08/22 linaclotide 290 mcg capsule 290 mcg PO QAM 30 days #30 caps 09/08/22 (Linzess) metoclopramide HCl 5 mg tablet 5 mg PO .tidac #90 tabs 09/08/22 (Reglan) doxycycline hyclate 100 mg tablet 100 mg PO BID 7 days #14 tabs 09/10/22 Allergies Allergy/AdvReac Type Severity Reaction Status Date / Time lisinopril Allergy Mild Closed Verified 09/08/22 14:48 throat sulfamethoxazole Allergy Mild RASH Verified 09/08/22 14:48 [From BACTRIM] trimethoprim [From BACTRIM] Allergy Mild RASH Verified 09/08/22 14:48 fish Allergy Unknown rash, Verified 09/08/22 14:48 redness morphine [MORPHINE] Allergy Unknown NAUSEA & Verified 09/08/22 14:48 VOMITING, vomiting Sulfa (Sulfonamide Allergy Unknown rash Verified 09/08/22 14:48 Antibiotics) Fish Containing Products AdvReac Unknown WORSENS Verified 09/08/22 14:48 GOUT SYMPTOMS Review of Systems Constitutional: Constitutional: Reports no additional constitutional complaints, Denies chills, Denies fever(s) and Denies night sweats Eyes: Eyes: Reports no additional eye complaints, Denies blurry vision, Denies change in vision, Denies diplopia, Denies eye discharge, Denies loss of vision and Denies eye pain ENT: Denies dizziness and Reports sinus pain Cardiovascular: Cardiovascular: Reports no additional cardiovascular complaints, Denies chest pain, Denies lightheadedness, Denies Loss of Consciousness and Denies dyspnea Respiratory: Respiratory: Reports no additional respiratory complaints and Denies dyspnea Gastrointestinal: Gastrointestinal: Reports no additional gastrointestinal complaints, Denies abdominal pain, Denies melena, Denies hematochezia, Denies change in bowel habits and Denies change in stool character Genitourinary: Genitourinary: Reports no additional male genitourinary complaints, Denies hematuria, Denies oliguria, Denies difficulty urinating, Denies dysuria, Denies urinary frequency, Denies urinary hesitancy, Denies u rinary incontinence and Denies urinary urgency Musculoskeletal: Musculoskeletal: Reports no additional musculoskeletal complaints, Denies numbness and Denies tingling Neurologic: Denies dizziness, Denies loss of vision, Denies numbness and Denies tingling Psychiatric: Psychiatric: Reports no additional psychiatric complaints Endocrine: Endocrine: Reports no additional endocrine complaints Hematologic/Lymphatic: Hematologic/Lymphatic: Reports no additional hematologic/lymphatic complaints Allergic/Immunologic: Allergic/Immunologic: Reports no additional allergic/immunologic complaints [facility] Past Medical History Attestation statement: The following information was validated with the patient. Source: old records reviewed Medical History Avascular necrosis of bone of hip Chronic GERD Chronic GERD Cough COVID-19 Diabetes Diabetes mellitus Diabetes mellitus with coincident hypertension Dysuria History of cardiac murmur Obesity Sinus infection Surgical History H/O colonoscopy H/O total hip arthroplasty H/O wrist surgery History of esophagogastroduodenoscopy (EGD) History of tonsillectomy History of umbilical hernia repair History of wisdom tooth extraction Family History Family History Father No problems noted. Mother Colon cancer Diabetes Hypertension Family/Other Diabetes Hypertension Social History Social History Housing: Apartment Alcohol intake: never Patient Tobacco Use Status: Never used Tobacco e-Cigarette/Vaping Use: Never Used Second Hand Smoke Exposure: Yes Advance Directives: No Advance Directives Information Provided: No service: No Current occupational status: disabled Current occupational exposures/hazards: No Cognitive needs: No Hearing needs: No Vision needs: Yes Physical Exam ED Vital Signs: Vital Signs - 24 hr 09/10/22 18:05 Temperature 97.2 F Pulse Rate 58 Respiratory Rate 20 Blood Pressure 156/72 H Pulse Oximetry 96 Oxygen Delivery Method Room Air BMI result Body Mass Index 33.6 Const General: cooperative, no acute distress, alert and awake Nutritional Appearance: well nourished Orientation/consciousness: patient oriented x3 Limitations: no limitations HENMT Head: Yes normal to inspection and Yes atraumatic Ears: hearing grossly normal bilaterally and external ears normal General nose exam: Normal external nose present, no nasal discharge noted and no epistaxis Face and sinus: Yes normal facial exam, No abrasion and No laceration Mouth: Normal oral and palatal mucosa present, no drooling and no muffled voice Eyes General: appearance normal, both eyes and all related structures Periorbital: periorbital findings normal Eyelids: Yes eyelids normal Conjunctivae: conjunctivae normal Pupils: Equal, round and reactive pupils present EOM: EOMs intact bilaterally Neck Neck: Yes normal visual inspection, Yes full ROM and Yes no lymphadenopathy Chest Chest palpation & inspection: normal inspection of the chest Resp Effort & Inspection: normal respiratory effort and able to speak in complete sentences Auscultation: clear to auscultation bilaterally Cardio Rate: regular rate Rhythm: regular rhythm GI Inspection: Yes normal to inspection Neuro General: patient oriented x3 and moves all extremities Cranial nerves: Yes Equal, round and reactive pupils present Cognition (Neuro): normal cognition Motor exam (neuro): 5/5 motor strength present throughout Sensory Exam: Normal double simultaneous stimulation for sensation Coordination: [id number] test normal Extrem General: Yes normal to inspection, Yes full ROM and Yes capillary refill normal Psych Appearance: grossly normal Mental Status: mental status grossly normal Affect: normal affect Attitude: cooperative Thought process: Normal thought process present Thought content: Normal thought content present Insight: Good insight present (Psych) Medical Decision Making MDM Narrative Medical decision making narrative: Patient is a 47 year old assigned male at with a history of diabetes and HTN presenting to the emergency department today with sinus pain. Patient's physical exam was unremarkable. Patient's rapid COVID and influenza swabs were negative. Patient's current clinical presentation is most consistent with sinusitis. I explained my physical exam findings as well as all test results to the patient. I answered all questions asked by the patient. I stressed the importance of the patient taking his medication as prescribed. I stressed the importance of the patient following up with his primary care provider and his ENT. I stressed the importance of the patient returning to the emergency department immediately if his symptoms were to worsen or if he were to develop any dizziness, shortness of breath, difficulty breathing, chest pain, blurry vision, loss of vision, nausea, vomiting, abdominal pain, fever, chills, back pain, or any other complaints. Patient verbalized agreement and understanding with this treatment plan and discharge. Medical Records Medical records reviewed: Yes I reviewed the patient's medical records. Lab Data Lab results reviewed: Yes I reviewed the patient's lab results. Labs: Lab Results 09/10/22 09/10/22 Range/Units 18:09 18:09 COVID-19 ([facility]) Negative (Negative) COVID-19 Clin Com See Note Influenza Type A ([facility]) Negative (Negative) Influenza Type B ([facility]) Negative (Negative) Influenza A & B Note See Note Discharge Plan Discharge Clinical Impression: Sinusitis Patient Disposition: Home, Self-Care Instructions: Sinusitis (ED) Additional Instructions: Follow up with your primary care provider and an ENT. Return to the emergency department immediately if your symptoms worsen or if you develop any dizziness, shortness of breath, difficulty breathing, chest pain, blurry vision, loss of vision, nausea, vomiting, abdominal pain, fever, chills, back pain, or any other complaints. 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 esomeprazole magnesium 40 mg capsule,delayed release(DR/EC) 40 mg PO DAILY Qty: 30 6RF hydrocortisone 2.5 % cream 1 appl topical BID PRN (Reason: skin irritation) Qty: 20 0RF Linzess 290 mcg capsule 290 mcg PO QAM 30 Days Qty: 30 6RF famotidine [Pepcid] 40 mg tablet 40 mg PO BEDTIME Qty: 30 3RF metoclopramide HCl [Reglan] 5 mg tablet 5 mg PO .tidac Qty: 90 3RF Referrals: Da Eckert MD [Primary Care Provider] - Howard Barksdale [Physician] - Stand Alone Forms: Work/School Release Interventions: ED Discharge Assessment Last Done: 09/10/22 19:22 Discharge Date/Time: 09/10/22 19:23 Print Language: Swiss
== END 2022-09-10 19:23 | disposition home or self-care (01) ==
PROVIDERS: Emergency Provider Emergency Medicine Emergency Medical Services; PCP Internal Medicine
DX: J01.90 Acute sinusitis, unspecified (principal); I10 Essential (primary) hypertension; Z20.822 Contact with and (suspected) exposure to COVID-19; Z79.899 Other long term (current) drug therapy
CPT/HCPCS: 87502; 87635; 99282; 99283

== ENCOUNTER 2022-11-26 12:43 | Outpatient (REF) | payer OTHER, SELFPAY ==
--- NOTE | ~2022-11-26 | XR_ITS ---
EXAMINATION: XR FOOT, RIGHT CLINICAL INFORMATION: Rheumatoid arthritis. COMPARISON: Right ankle radiographs dated 06/25/2010. TECHNIQUE: AP, lateral, and oblique views of the right foot. FINDINGS: Bony alignment and mineralization are normal. No fracture, dislocation or right ankle joint effusion is seen. Boehler's angle is normal. There is a moderately large posterior calcaneal spur. No fracture or dislocation is seen. This no abnormal bone erosion. No focal soft tissue swelling, gas or foreign body is seen. XR/XR foot LT min 3V IMPRESSION: 1. No fracture, dislocation or right ankle joint effusion is seen. 2. There is no abnormal bony erosive change. 3. There is a moderately large posterior calcaneal spur. EXAMINATION: XR FOOT, LEFT CLINICAL INFORMATION: Rheumatoid arthritis. COMPARISON: Left toe radiographs dated 01/27/2016. TECHNIQUE: AP, lateral, and oblique views of the left foot. FINDINGS: Bony alignment and mineralization are normal. No fracture, dislocation or left ankle joint effusion is seen. There is a tiny accessory ossification center adjacent to the anterior articular margin of the distal tibia. Boehler's angle is normal. There is a tiny posterior calcaneal spur. There are degenerative changes of the dorsal midfoot. There is trace spine formation. No focal soft tissue swelling, gas or foreign body is seen. IMPRESSION: 1. No fracture, dislocation or left ankle joint effusion is seen. 2. There is no abnormal bony erosive change. 3. There is a tiny posterior calcaneal spur.
--- NOTE | ~2022-11-26 | XR_ITS ---
EXAMINATION: XR ANKLE, RIGHT CLINICAL INFORMATION: Rheumatoid arthritis. COMPARISON: None TECHNIQUE: AP, lateral, and mortise views of the right ankle. FINDINGS: The bones and soft tissues are normal. No fracture. Alignment is anatomic. Joint spaces are maintained. There is a moderately large posterior calcaneal spur. No joint effusion. XR/XR ankle RT min 3V IMPRESSION: There is a moderately large posterior calcaneal spur. Otherwise, unremarkable right ankle. EXAMINATION: XR ANKLE, LEFT CLINICAL INFORMATION: Rheumatoid arthritis. COMPARISON: None TECHNIQUE: AP, lateral, and mortise views of the left ankle. FINDINGS: The bones and soft tissues are normal. No fracture. Alignment is anatomic. Joint spaces are maintained. There is a tiny posterior calcaneal spur. No joint effusion. IMPRESSION: There is a tiny posterior calcaneal spur. Otherwise, unremarkable left ankle.
--- NOTE | ~2022-11-26 | XR_ITS ---
EXAMINATION: XR ANKLE, RIGHT CLINICAL INFORMATION: Rheumatoid arthritis. COMPARISON: None TECHNIQUE: AP, lateral, and mortise views of the right ankle. FINDINGS: The bones and soft tissues are normal. No fracture. Alignment is anatomic. Joint spaces are maintained. There is a moderately large posterior calcaneal spur. No joint effusion. XR/XR ankle LT min 3V IMPRESSION: There is a moderately large posterior calcaneal spur. Otherwise, unremarkable right ankle. EXAMINATION: XR ANKLE, LEFT CLINICAL INFORMATION: Rheumatoid arthritis. COMPARISON: None TECHNIQUE: AP, lateral, and mortise views of the left ankle. FINDINGS: The bones and soft tissues are normal. No fracture. Alignment is anatomic. Joint spaces are maintained. There is a tiny posterior calcaneal spur. No joint effusion. IMPRESSION: There is a tiny posterior calcaneal spur. Otherwise, unremarkable left ankle.
--- NOTE | ~2022-11-26 | XR_ITS ---
EXAMINATION: XR KNEE, RIGHT XR KNEE, LEFT XR KNEE AP STANDING CLINICAL INFORMATION: Rheumatoid arthritis. COMPARISON: None TECHNIQUE: AP, lateral, tunnel, and sunrise views of the right knee. AP, lateral, tunnel, and sunrise views of the left knee. AP bilateral standing view of the knees was obtained. FINDINGS: RIGHT KNEE: Bony alignment and mineralization are normal. The lateral, medial and patellofemoral joint space compartments are well maintained. There is minimal peripheral osteophyte formation of the patellofemoral compartment. There are enthesophytes arising from the upper and lower poles of the patella at the quadriceps and patellar tendon insertions. No foreign body is seen. XR/XR knee RT 3V IMPRESSION: 1. No right knee fracture, dislocation or effusion is noted. 2. There is minimal osteoarthritic change of the right patellofemoral compartment. LEFT KNEE: Bony alignment and mineralization are normal. The lateral, medial and patellofemoral joint space compartments are well-maintained. There is minimal peripheral osteophyte formation of the patellofemoral compartment. No fracture, dislocation or left knee joint effusion is seen. No foreign body is seen. IMPRESSION: 1. No left knee fracture, dislocation or effusion is noted. 2. There is minimal osteoarthritic change of the left patellofemoral compartment.
--- NOTE | ~2022-11-26 | XR_ITS ---
EXAMINATION: XR HAND/WRIST, RIGHT CLINICAL INFORMATION: Rheumatoid arthritis. COMPARISON: None TECHNIQUE: PA, lateral, and oblique views of the right hand and wrist. FINDINGS: Bony alignment and mineralization are normal. There is an ulnar minus variance. No acute fracture or dislocation is seen. An orthopedic plate and screws are seen applied to the distal right radius. Alignment is anatomic. The proximal and distal carpal rows are intact. There is mild osteoarthritic change of the first carpometacarpal joint. There is a minimal accessory ossification center situated adjacent to the radial styloid. No erosions or soft tissue calcifications. XR/XR hand wrist LT IMPRESSION: 1. There is mild osteoarthritic change of the right first carpometacarpal joint. 2. There is no abnormal bony erosive change. 3. No fracture or dislocation is seen. EXAMINATION: XR HAND/WRIST, LEFT CLINICAL INFORMATION: Rheumatoid arthritis. COMPARISON: None TECHNIQUE: PA, lateral, and oblique views of the left hand and wrist. FINDINGS: The bones and soft tissues are normal. No fracture. Alignment is anatomic. There is an ulnar minus variance. Joint spaces are maintained. No erosions or soft tissue calcifications. IMPRESSION: Normal radiographs of the hand and wrist.
--- NOTE | ~2022-11-26 | XR_ITS ---
EXAMINATION: XR KNEE, RIGHT XR KNEE, LEFT XR KNEE AP STANDING CLINICAL INFORMATION: Rheumatoid arthritis. COMPARISON: None TECHNIQUE: AP, lateral, tunnel, and sunrise views of the right knee. AP, lateral, tunnel, and sunrise views of the left knee. AP bilateral standing view of the knees was obtained. FINDINGS: RIGHT KNEE: Bony alignment and mineralization are normal. The lateral, medial and patellofemoral joint space compartments are well maintained. There is minimal peripheral osteophyte formation of the patellofemoral compartment. There are enthesophytes arising from the upper and lower poles of the patella at the quadriceps and patellar tendon insertions. No foreign body is seen. XR/XR knee standing BI IMPRESSION: 1. No right knee fracture, dislocation or effusion is noted. 2. There is minimal osteoarthritic change of the right patellofemoral compartment. LEFT KNEE: Bony alignment and mineralization are normal. The lateral, medial and patellofemoral joint space compartments are well-maintained. There is minimal peripheral osteophyte formation of the patellofemoral compartment. No fracture, dislocation or left knee joint effusion is seen. No foreign body is seen. IMPRESSION: 1. No left knee fracture, dislocation or effusion is noted. 2. There is minimal osteoarthritic change of the left patellofemoral compartment.
--- NOTE | ~2022-11-26 | XR_ITS ---
EXAMINATION: XR HAND/WRIST, RIGHT CLINICAL INFORMATION: Rheumatoid arthritis. COMPARISON: None TECHNIQUE: PA, lateral, and oblique views of the right hand and wrist. FINDINGS: Bony alignment and mineralization are normal. There is an ulnar minus variance. No acute fracture or dislocation is seen. An orthopedic plate and screws are seen applied to the distal right radius. Alignment is anatomic. The proximal and distal carpal rows are intact. There is mild osteoarthritic change of the first carpometacarpal joint. There is a minimal accessory ossification center situated adjacent to the radial styloid. No erosions or soft tissue calcifications. XR/XR hand wrist RT IMPRESSION: 1. There is mild osteoarthritic change of the right first carpometacarpal joint. 2. There is no abnormal bony erosive change. 3. No fracture or dislocation is seen. EXAMINATION: XR HAND/WRIST, LEFT CLINICAL INFORMATION: Rheumatoid arthritis. COMPARISON: None TECHNIQUE: PA, lateral, and oblique views of the left hand and wrist. FINDINGS: The bones and soft tissues are normal. No fracture. Alignment is anatomic. There is an ulnar minus variance. Joint spaces are maintained. No erosions or soft tissue calcifications. IMPRESSION: Normal radiographs of the hand and wrist.
--- NOTE | ~2022-11-26 | XR_ITS ---
EXAMINATION: XR KNEE, RIGHT XR KNEE, LEFT XR KNEE AP STANDING CLINICAL INFORMATION: Rheumatoid arthritis. COMPARISON: None TECHNIQUE: AP, lateral, tunnel, and sunrise views of the right knee. AP, lateral, tunnel, and sunrise views of the left knee. AP bilateral standing view of the knees was obtained. FINDINGS: RIGHT KNEE: Bony alignment and mineralization are normal. The lateral, medial and patellofemoral joint space compartments are well maintained. There is minimal peripheral osteophyte formation of the patellofemoral compartment. There are enthesophytes arising from the upper and lower poles of the patella at the quadriceps and patellar tendon insertions. No foreign body is seen. XR/XR knee LT 3V IMPRESSION: 1. No right knee fracture, dislocation or effusion is noted. 2. There is minimal osteoarthritic change of the right patellofemoral compartment. LEFT KNEE: Bony alignment and mineralization are normal. The lateral, medial and patellofemoral joint space compartments are well-maintained. There is minimal peripheral osteophyte formation of the patellofemoral compartment. No fracture, dislocation or left knee joint effusion is seen. No foreign body is seen. IMPRESSION: 1. No left knee fracture, dislocation or effusion is noted. 2. There is minimal osteoarthritic change of the left patellofemoral compartment.
--- NOTE | ~2022-11-26 | XR_ITS ---
EXAMINATION: XR FOOT, RIGHT CLINICAL INFORMATION: Rheumatoid arthritis. COMPARISON: Right ankle radiographs dated 06/25/2010. TECHNIQUE: AP, lateral, and oblique views of the right foot. FINDINGS: Bony alignment and mineralization are normal. No fracture, dislocation or right ankle joint effusion is seen. Boehler's angle is normal. There is a moderately large posterior calcaneal spur. No fracture or dislocation is seen. This no abnormal bone erosion. No focal soft tissue swelling, gas or foreign body is seen. XR/XR foot RT min 3V IMPRESSION: 1. No fracture, dislocation or right ankle joint effusion is seen. 2. There is no abnormal bony erosive change. 3. There is a moderately large posterior calcaneal spur. EXAMINATION: XR FOOT, LEFT CLINICAL INFORMATION: Rheumatoid arthritis. COMPARISON: Left toe radiographs dated 01/27/2016. TECHNIQUE: AP, lateral, and oblique views of the left foot. FINDINGS: Bony alignment and mineralization are normal. No fracture, dislocation or left ankle joint effusion is seen. There is a tiny accessory ossification center adjacent to the anterior articular margin of the distal tibia. Boehler's angle is normal. There is a tiny posterior calcaneal spur. There are degenerative changes of the dorsal midfoot. There is trace spine formation. No focal soft tissue swelling, gas or foreign body is seen. IMPRESSION: 1. No fracture, dislocation or left ankle joint effusion is seen. 2. There is no abnormal bony erosive change. 3. There is a tiny posterior calcaneal spur.
[2022-11-26 14:02] LABS: MANUAL DIFF FLAG NO
[2022-11-26 14:19] LABS: Basophils Percent Auto 0.4 % (0-2); Eosinophils Absolute Auto 0.1 X10*3/uL (0.0-0.4); Eosinophils Percent Auto 1.5 % (0-4); Hematocrit 41.2 % (42.0-52.0); Imm Gran Abs Auto 0.01 X10*3/uL (0.00-0.03); Imm Gran Pct Auto 0.1 % (0.0-0.4); Lymphocytes Absolute Auto 2.5 X10*3/uL (1.2-4.9); Lymphocytes Percent Auto 37.2 % (20-40); Mean Corpuscular Volume 82.4 fL (80.0-98.0); Monocytes Absolute Auto 0.5 X10*3/uL (0.1-1.2); Monocytes Percent Auto 6.6 % (2-11); Neutrophils Absolute Auto 3.7 x10*3/uL (2.0-8.3); Neutrophils Percent Auto 54.2 % (45-73); Platelet Count 248 X10*3/uL (160-400); White Blood Count 6.8 X10*3/uL (4.8-10.8)
[2022-11-26 14:48] LABS: Anion Gap 14 (12-20)
[2022-11-26 14:52] LABS: Appearance Urine Clear; Color Urine Yellow; Glucose Urine UA 100 mg/dL (Negative); Leukocyte Esterase Urine Negative (Negative); Nitrite Urine Negative (Negative); PH 5.5 (5.0-9.0); Urine Blood Negative (Negative); Urine Ketones Negative (Negative); Urine Protein Negative (Neg-Trace)
[2022-11-26 14:52] LABS: Carbon Dioxide 23 mmol/L (22-29)
[2022-11-26 14:54] LABS: Bacteria Urine None Seen (None Seen); Hyaline Casts Urine 0-2 /LPF (0-2); RBC Urine 0-2 /HPF (0-2); Squamous Epithelial Cell Urine 0-2 /HPF (0-2); WBC Urine 0-5 /HPF (0-5)
[2022-11-26 14:59] LABS: Alanine Aminotransferase 19 U/L (0-40); Albumin Level 4.3 g/dL (3.5-5.0); Alkaline Phosphatase 65 U/L (39-117); Aspartate Amino Transferase 16 U/L (5-37); Bilirubin Total 0.3 mg/dL (0.0-1.0); Blood Urea Nitrogen 17 mg/dL (9-16); C Reactive Protein 0.64 mg/dL (< or = 0.50); Calcium 9.4 mg/dL (8.4-10.2); Chloride 107 mmol/L (96-108); Erythrocyte Sedimentation Rate 7 MM/HR (0-15); Estimated Glomerular Filt Rate > 60; Glucose Random 215 mg/dL (60-115); Potassium 4.3 mmol/L (3.3-5.1); Rheumatoid Factor < 13.0 IU/mL (<15.0); Sodium 140 mmol/L (135-145); Total Protein 7.3 g/dL (6.5-8.0)
[2022-11-26 15:33] LABS: Total Protein Urine Random < 7 mg/dL (<12)
[2022-11-28 12:58] LABS: Anti Nuclear Antibody Screen NEGATIVE (NEGATIVE)
[2022-11-29 04:35] LABS: HBS Num1 0.03 mIU/mL (0-7.99); HBc Num1 0.09 S/CO (0.00-0.79); HBsAGNum1 0.27 S/CO (0.00-0.99); Hepatitis A Antibody IgM 0.16 Index (0-0.79); Hepatitis B Core Antibody Nonreactive (Nonreactive); Hepatitis B Surface Antigen Negative (Negative); ~HepC Num1 0.09 S/CO (0.00-0.79); ~Hepatitis A Antibody IgM Nonreactive (Nonreactive); ~Hepatitis B Surface Antibody NONREACTIVE (Nonreactive); ~Hepatitis C Antibody Nonreactive (Nonreactive)
[2022-11-29 10:49] LABS: Complement C3 123 mg/dL (82-185)
[2022-11-29 13:58] LABS: Anti DNA DS Antibody <1 IU/mL; Antibody to SS-A Antigen <1.0 NEG AI (<1.0 NEG); Antibody to SS-B Antigen <1.0 NEG AI (<1.0 NEG); SM/Ribonucleoprotein Ab <1.0 NEG AI (<1.0 NEG); Smith Protein <1.0 NEG AI (<1.0 NEG)
[2022-11-29 14:59] LABS: Prot Elec - Albumin 4.2 g/dL (3.8-4.8); Prot Elec - Alpha1 0.3 g/dL (0.2-0.3); Prot Elec - Alpha2 0.6 g/dL (0.5-0.9); Prot Elec - Beta 1 0.4 g/dL (0.4-0.6); Prot Elec - Beta 2 0.3 g/dL (0.2-0.5); Prot Elec - Gamma 1.2 g/dL (0.8-1.7); Prot Elec - Total Protein 6.9 g/dL (6.1-8.1)
[2022-11-29 15:33] LABS: TS Negative Control Passed; TS Panel A 0; TS Panel B 1; TS Positive Control Passed; TSpotTB Negative (Negative)
[2022-11-30 13:49] LABS: IgA 209 mg/dL (47-310); IgG 1323 mg/dL (600-1640); IgM 87 mg/dL (50-300)
[2022-11-30 16:15] LABS: Cyclic Citrullinated Peptide <16 UNITS
[2022-11-30 23:43] LABS: Cardiolipin IgG Ab <2.0 GPL-U/mL; Cardiolipin IgM Ab 4.6 MPL-U/mL
[2022-12-01 16:08] LABS: Beta-2 Glycoprotein IgA <2.0 U/mL (<20.0); Beta-2 Glycoprotein IgG <2.0 U/mL (<20.0); Beta-2 Glycoprotein IgM <2.0 U/mL (<20.0)
[2022-12-01 18:04] LABS: PTT (LAC) Screen 32 sec (<=40)
[2022-12-01 18:09] LABS: Vitamin D 25-OH, D2 <4 ng/mL; Vitamin D 25-OH, D3 32 ng/mL; Vitamin D 25-OH, Total 32 ng/mL (30-100)
== END 2022-11-26 12:44 | disposition home or self-care (01) ==
LOC: HO.LAB 12:43
PROVIDERS: PCP Internal Medicine; Visit Provider Student in an Organized Health Care Education/Training Program
DX: M25.541 Pain in joints of right hand (principal); M25.542 Pain in joints of left hand; M1A.0790 Idiopathic chronic gout, unspecified ankle and foot, without tophus (tophi); M06.9 Rheumatoid arthritis, unspecified; M32.9 Systemic lupus erythematosus, unspecified; D68.61 Antiphospholipid syndrome; Z11.7 Encounter for testing for latent tuberculosis infection; Z13.21 Encounter for screening for nutritional disorder; Z96.642 Presence of left artificial hip joint; Z79.899 Other long term (current) drug therapy
CPT/HCPCS: 36415; 73110; 73130; 73562; 73564; 73565; 73610; 73630; 80053; 81001; 82306; 82784; 84156; 84165; 84550; 85025; 85597; 85613; 85652; 85730; 86038; 86039; 86140; 86146; 86147; 86160; 86200; 86225; 86235; 86255; 86334; 86431; 86481; 86704; 86706; 86709; 86803; 87340; 99202

== ENCOUNTER → 2022-12-14 16:02 | Outpatient (BNVA) | payer OTHER, SELFPAY | PROVIDERS: PCP Internal Medicine; Visit Provider Nurse Practitioner | DX: K21.9 Gastro-esophageal reflux disease without esophagitis (principal); K59.04 Chronic idiopathic constipation; K30 Functional dyspepsia | CPT/HCPCS: 99212 ==

== ENCOUNTER 2023-01-29 14:20 | Emergency (ER) | payer OTHER, SELFPAY ==
--- NOTE | ~2023-01-29 | XR_ITS ---
EXAMINATION: XR CHEST CLINICAL INFORMATION: Chest pain. COMPARISON: 04/19/2022 chest radiographs. TECHNIQUE: 2 views of the chest were obtained. FINDINGS: No significant abnormality is noted involving the heart, lungs, mediastinum, bony thorax or soft tissues. XR/XR chest 2V IMPRESSION: No acute cardiopulmonary process.
--- NOTE | 2023-01-29 14:22 | ECG_ITS ---
Test Reason : CHEST PAIN Blood Pressure : / mmHG Vent. Rate : 054 BPM Atrial Rate : 054 BPM P-R Int : 152 ms QRS Dur : 102 ms QT Int : 408 ms P-R-T Axes : 048 -15 000 degrees QTc Int : 386 ms Sinus bradycardia Moderate voltage criteria for LVH, may be normal variant ( R in aVL , Bar product ) Borderline ECG When compared with ECG of 18-JUN-2022 01:25, No significant change was found Referred By: Phylicia Gallagher Electronically Signed By:Freddie Guillermo
--- NOTE | 2023-01-29 14:22 | ED_ITS ---
HPI - General Adult General Chief complaint: Chest Pain <ABELARDO Maradiaga - Last Filed: 01/29/23 14:23> Stated complaint: Chest Pain <ABELARDO Maradiaga - Last Filed: 01/29/23 14:23> Time Seen by Provider: 01/29/23 14:51 <ABELARDO Maradiaga - Last Filed: 01/29/23 14:23> Source: patient, RN notes reviewed and old records reviewed <Toño Ziegler - Last Filed: 01/29/23 17:12> Mode of arrival: ambulatory <Toño Ziegler - Last Filed: 01/29/23 17:12> Limitations: no limitations <Toño Ziegler - Last Filed: 01/29/23 17:12> History of Present Illness HPI narrative: 47-year-old male past medical history significant for chronic GERD, delayed gastric emptying, gout, BPH, diabetes, hypertension, obesity presents for evaluation of chest pain Patient reports this chest pain started last night. He describes as burning in nature. He states it reminds him of his chronic GERD but slow I just want to make sure everything is okay. Patient admits to eating ?[employer] last night even though I know I am not supposed to. ? His pain has improved since arrival and is currently a 3/10 He has mild associated nausea <Toño Ziegler - Last Filed: 01/29/23 17:12> Related Data Home medications: Previous Rx's Medication Instructions Recorded fluticasone propionate 50 1 spray intranasal BID #16 grams 07/07/22 mcg/actuation nasal spray,suspension (Flonase Allergy Relief) hydrocortisone 2.5 % topical cream 1 appl topical BID PRN skin 08/27/22 irritation #20 grams ergocalciferol (vitamin D2) 1,250 1,250 mcg PO QWEEK #12 caps 09/23/22 mcg (50,000 unit) capsule valsartan 80 mg tablet 80 mg PO DAILY #90 tabs 09/25/22 famotidine 40 mg tablet 40 mg PO BEDTIME #90 tabs 09/29/22 glipizide 5 mg tablet 5 mg PO DAILY #90 tabs 11/03/22 naproxen 500 mg tablet (Naprosyn) 500 mg PO BID PRN pain #60 tabs 11/03/22 bisacodyl 5 mg tablet,delayed 10 mg PO BEDTIME 30 days #60 tabs 12/14/22 release (Dulcolax (bisacodyl)) metoclopramide HCl 10 mg tablet 10 mg PO QIDACHS #60 tabs 12/14/22 (Reglan) pantoprazole 40 mg tablet,delayed 40 mg PO DAILY 30 days #30 tabs 12/14/22 release (Protonix) leflunomide 20 mg tablet 20 mg PO DAILY #30 tabs 12/22/22 <ABELARDO Maradiaga - Last Filed: 01/29/23 14:23> Allergies/adverse reactions: Allergies Allergy/AdvReac Type Severity Reaction Status Date / Time lisinopril Allergy Mild Closed Verified 12/14/22 16:25 throat sulfamethoxazole Allergy Mild Rash Verified 01/06/23 10:49 [From Bactrim] trimethoprim [From Bactrim] Allergy Mild Rash Verified 01/06/23 10:49 fish derived [fish] Allergy Unknown Rash, Verified 01/06/23 10:49 Redness morphine [MORPHINE] Allergy Unknown Nausea and Verified 01/06/23 10:49 Vomiting Sulfa (Sulfonamide Allergy Unknown rash Verified 12/14/22 16:25 Antibiotics) Fish Containing Products AdvReac Unknown Worsens Verified 01/06/23 10:49 Gout symptoms <ABELARDO Maradiaga - Last Filed: 01/29/23 14:23> Review of Systems Constitutional: Constitutional: Reports as per HPI, Denies chills, Denies fatigue, Denies fever(s) and Denies headache(s) <Toño Ziegler - Last Filed: 01/29/23 17:12> ENT: Denies headache(s) <Toño Ziegler - Last Filed: 01/29/23 17:12> Cardiovascular: Cardiovascular: Reports chest pain and Denies dyspnea <Toño Ziegler - Last Filed: 01/29/23 17:12> Respiratory: Respiratory: Denies cough and Denies dyspnea <Toño Ziegler - Last Filed: 01/29/23 17:12> Gastrointestinal: Gastrointestinal: Denies abdominal pain, Denies constipation and Denies vomiting <Toño Ziegler - Last Filed: 01/29/23 17:12> Genitourinary: Genitourinary: Denies difficulty urinating and Denies dysuria <Toño Ziegler - Last Filed: 01/29/23 17:12> Neurologic: Denies headache(s) and Denies focal weakness <Toño Ziegler - Last Filed: 01/29/23 17:12> Endocrine: Endocrine: Denies fatigue <Toño Ziegler - Last Filed: 01/29/23 17:12> ON LICENSE OF [facility] Past Medical History Medical History: Medical History Avascular necrosis of bone of hip Chronic GERD Chronic GERD Cough COVID-19 Diabetes Diabetes mellitus Diabetes mellitus with coincident hypertension Dysuria History of cardiac murmur 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 Mother Colon cancer Diabetes Hypertension Family/Other Diabetes Hypertension <ABELARDO Maradiaga - Last Filed: 01/29/23 14:23> Social History Social History: Social History Housing: Apartment Alcohol intake: never Patient Tobacco Use Status: Never used Tobacco e-Cigarette/Vaping Use: Never Used Second Hand Smoke Exposure: Yes Advance Directives: No Advance Directives Information Provided: Yes service: No Current occupational status: disabled Current occupational exposures/hazards: No Cognitive needs: No Hearing needs: No Vision needs: Yes <ABELARDO Maradiaga - Last Filed: 01/29/23 14:23> Physical Exam ED Vital Signs: Vital Signs - 24 hr 01/29/23 14:29 Temperature 97.7 F Pulse Rate 54 Respiratory Rate 16 Blood Pressure 170/85 H Pulse Oximetry 97 Oxygen Delivery Method Room Air BMI result Body Mass Index 32.6 <ABELARDO Maradiaga - Last Filed: 01/29/23 14:23> Vital Signs - 24 hr 01/29/23 14:29 Temperature 97.7 F Pulse Rate 54 Respiratory Rate 16 Blood Pressure 170/85 H Pulse Oximetry 97 Oxygen Delivery Method Room Air BMI result Body Mass Index 32.6 <Toño - Last Filed: 01/29/23 17:12> Const General: healthy appearing, comfortable, no acute distress, alert and awake < - Last Filed: 01/29/23 17:12> Nutritional Appearance: well nourished < - Last Filed: 01/29/23 17:12> Orientation/consciousness: patient oriented x3 < - Last Filed: 01/29/23 17:12> HENMT Head: Yes normocephalic and Yes atraumatic < - Last Filed: 01/29/23 17:12> Throat: Yes posterior oropharynx normal < - Last Filed: 01/29/23 17:12> Eyes Eyelids: Yes eyelids normal < - Last Filed: 01/29/23 17:12> Conjunctivae: conjunctivae normal < - Last Filed: 01/29/23 17:12> Sclerae: sclerae normal < - Last Filed: 01/29/23 17:12> Corneas: corneas normal < - Last Filed: 01/29/23 17:12> Pupils: Equal, round and reactive pupils present < - Last Filed: 01/29/23 17:12> EOM: EOMs intact bilaterally < Last Filed: 01/29/23 17:12> Neck Neck: Yes full ROM < Last Filed: 01/29/23 17:12> Resp Effort & Inspection: normal respiratory effort, able to speak in complete sentences, no audible wheezes and not labored < Last Filed: 01/29/23 17:12> Auscultation: clear to auscultation bilaterally <Toño Cisneros Last Filed: 01/29/23 17:12> Cardio Rate: regular rate <Toñocleo Cisnerosy - Last Filed: 01/29/23 17:12> Rhythm: regular rhythm <Toñocleo Cisnerosy - Last Filed: 01/29/23 17:12> GI Inspection: No distended <Toñocleo Cisnerosy - Last Filed: 01/29/23 17:12> Palpation (GI): Soft to palpation, not firm, Tenderness to palpation present (GI) in the epigastrum, no guarding and not rigid <Toñocleo Cisneros Last Filed: 01/29/23 17:12> Auscultation: normoactive bowel sounds <Toño Ziegler Last Filed: 01/29/23 17:12> Skin General skin exam: no rashes or lesions noted and elasticity normal <Toñocleo Cisnerosy - Last Filed: 01/29/23 17:12> Neuro General: patient oriented x3 <Toño Ziegler Last Filed: 01/29/23 17:12> Cranial nerves: Yes CN's II-XII intact bilaterally, Yes Equal, round and reactive pupils present and Yes Bilaterally intact EOM present <Toñocleo Ziegler Last Filed: 01/29/23 17:12> Cognition (Neuro): normal cognition <Toño Ziegler - Last Filed: 01/29/23 17:12> Extrem Other: Moving all extremities well without any obvious deformities <Toño Ziegler - Last Filed: 01/29/23 17:12> Course Course Course Narrative: RME performed by Phylicia Gallagher PA-C. Patient is 47 year old assigned male at presenting to the emergency department with chest pain. Labs, CXR, swab, and EKG ordered. Patient placed back in the waiting room pending room availability and results. <ABELARDO Maradiaga Last Filed: 01/29/23 14:23> Medical Decision Making Medical Decision Making MDM Narrative: For 7-year-old male presents for evaluation of burning chest pain no sore last night after eating [employer]. He has a history of GERD and reports this feels similar. His workup is largely unremarkable. EKG unchanged from previous from last year. No ischemic changes. His troponin level is negative. This will treat the patient's GERD any safely be discharged to follow-up with his PCP and it sales representative <Toño Ziegler - Last Filed: 01/29/23 17:12> Differential Diagnosis GERD Atypical chest pain ACS less likely Costochondritis Chest wall pain <Toño OMaryy - Last Filed: 01/29/23 17:12> Lab Data MDM Lab Attestation statement: I reviewed the patient's lab results. <Toño Ziegler - Last Filed: 01/29/23 17:12> Glucose of 226, no other significant lab abnormalities noted <Toño Ziegler - Last Filed: 01/29/23 17:12> Result Diagrams: 01/29/23 14:37 01/29/23 14:37 <ABELARDO Maradiaga - Last Filed: 01/29/23 14:23> Labs: Lab Results 01/29/23 01/29/23 01/29/23 Range/Units 14:37 14:37 14:37 WBC 7.3 (4.8-10.8) X10*3/uL RBC 5.24 (4.60-5.80) X10*6/uL Hgb 14.7 (14.0-18.0) g/dl Hct 42.8 (42.0-52.0) % MCV 81.7 (80.0-98.0) fL MCH 28.1 (27.0-33.0) pg MCHC 34.3 (31.0-36.0) g/dl RDW 13.0 (11.0-16.0) % Plt Count 254 (160-400) X10*3/uL MPV 10.3 (9.4-12.4) fL Immature Gran % (Auto) 0.1 (0.0-0.4) % Neut % (Auto) 60.2 (45-73) % Lymph % (Auto) 30.1 (20-40) % [place] % (Auto) 8.1 (2-11) % Eos % (Auto) 1.1 (0-4) % Baso % (Auto) 0.4 (0-2) % Lymph # (Auto) 2.2 (1.2-4.9) X10*3/uL [place] # (Auto) 0.6 (0.1-1.2) X10*3/uL Eos # (Auto) 0.1 (0.0-0.4) X10*3/uL Baso # (Auto) 0.0 (0.0-0.2) X10*3/uL Abs Immat Gran (auto) 0.01 (0.00-0.03) X10*3/uL Absolute Neuts (auto) 4.4 (2.0-8.3) x10*3/uL Absolute Nucleated RBC 0.000 (0.0-0.012) X10*3/uL Nucleated RBC % (auto) 0.0 (0.0-0.2) /100WBC Sodium 137 (135-145) mmol/L Potassium 3.9 (3.3-5.1) mmol/L Chloride 104 (96-108) mmol/L Carbon Dioxide 25 (22-29) mmol/L Anion Gap 12 (12-20) BUN 16 (9-16) mg/dL Creatinine 1.09 (0.5-1.4) mg/dL Estim Creat Clear Calc 95.6 Estimated GFR > 60 Random Glucose 226 H (60-115) mg/dL Calcium 9.1 (8.4-10.2) mg/dL Magnesium 1.9 (1.6-2.6) mg/dL Total Bilirubin 0.5 (0.0-1.0) mg/dL AST 14 (5-37) U/L ALT 18 (0-40) U/L Alkaline Phosphatase 68 (39-117) U/L Troponin I High Sens 16.2 (<3.5-35.0) ng/L B-Natriuretic Peptide (<100) pg/mL Total Protein 7.0 (6.5-8.0) g/dL Albumin 4.2 (3.5-5.0) g/dL COVID-19 ([facility]) (Negative) COVID-19 Clin Com 01/29/23 01/29/23 Range/Units 14:37 14:37 WBC (4.8-10.8) X10*3/uL RBC (4.60-5.80) X10*6/uL Hgb (14.0-18.0) g/dl Hct (42.0-52.0) % MCV (80.0-98.0) fL MCH (27.0-33.0) pg MCHC (31.0-36.0) g/dl RDW (11.0-16.0) % Plt Count (160-400) X10*3/uL MPV (9.4-12.4) fL Immature Gran % (Auto) (0.0-0.4) % Neut % (Auto) (45-73) % Lymph % (Auto) (20-40) % [place] % (Auto) (2-11) % Eos % (Auto) (0-4) % Baso % (Auto) (0-2) % Lymph # (Auto) (1.2-4.9) X10*3/uL [place] # (Auto) (0.1-1.2) X10*3/uL Eos # (Auto) (0.0-0.4) X10*3/uL Baso # (Auto) (0.0-0.2) X10*3/uL Abs Immat Gran (auto) (0.00-0.03) X10*3/uL Absolute Neuts (auto) (2.0-8.3) x10*3/uL Absolute Nucleated RBC (0.0-0.012) X10*3/uL Nucleated RBC % (auto) (0.0-0.2) /100WBC Sodium (135-145) mmol/L Potassium (3.3-5.1) mmol/L Chloride (96-108) mmol/L Carbon Dioxide (22-29) mmol/L Anion Gap (12-20) BUN (9-16) mg/dL Creatinine (0.5-1.4) mg/dL Estim Creat Clear Calc Estimated GFR Random Glucose (60-115) mg/dL Calcium (8.4-10.2) mg/dL Magnesium (1.6-2.6) mg/dL Total Bilirubin (0.0-1.0) mg/dL AST (5-37) U/L ALT (0-40) U/L Alkaline Phosphatase (39-117) U/L Troponin I High Sens (<3.5-35.0) ng/L B-Natriuretic Peptide < 10 (<100) pg/mL Total Protein (6.5-8.0) g/dL Albumin (3.5-5.0) g/dL COVID-19 ([facility]) Negative (Negative) COVID-19 Clin Com See Note <ABELARDO Maradiaga - Last Filed: 01/29/23 14:23> Lab Results 01/29/23 01/29/23 01/29/23 Range/Units 14:37 14:37 14:37 WBC 7.3 (4.8-10.8) X10*3/uL RBC 5.24 (4.60-5.80) X10*6/uL Hgb 14.7 (14.0-18.0) g/dl Hct 42.8 (42.0-52.0) % MCV 81.7 (80.0-98.0) fL MCH 28.1 (27.0-33.0) pg MCHC 34.3 (31.0-36.0) g/dl RDW 13.0 (11.0-16.0) % Plt Count 254 (160-400) X10*3/uL MPV 10.3 (9.4-12.4) fL Immature Gran % (Auto) 0.1 (0.0-0.4) % Neut % (Auto) 60.2 (45-73) % Lymph % (Auto) 30.1 (20-40) % [place] % (Auto) 8.1 (2-11) % Eos % (Auto) 1.1 (0-4) % Baso % (Auto) 0.4 (0-2) % Lymph # (Auto) 2.2 (1.2-4.9) X10*3/uL [place] # (Auto) 0.6 (0.1-1.2) X10*3/uL Eos # (Auto) 0.1 (0.0-0.4) X10*3/uL Baso # (Auto) 0.0 (0.0-0.2) X10*3/uL Abs Immat Gran (auto) 0.01 (0.00-0.03) X10*3/uL Absolute Neuts (auto) 4.4 (2.0-8.3) x10*3/uL Absolute Nucleated RBC 0.000 (0.0-0.012) X10*3/uL Nucleated RBC % (auto) 0.0 (0.0-0.2) /100WBC Sodium 137 (135-145) mmol/L Potassium 3.9 (3.3-5.1) mmol/L Chloride 104 (96-108) mmol/L Carbon Dioxide 25 (22-29) mmol/L Anion Gap 12 (12-20) BUN 16 (9-16) mg/dL Creatinine 1.09 (0.5-1.4) mg/dL Estim Creat Clear Calc 95.6 Estimated GFR > 60 Random Glucose 226 H (60-115) mg/dL Calcium 9.1 (8.4-10.2) mg/dL Magnesium 1.9 (1.6-2.6) mg/dL Total Bilirubin 0.5 (0.0-1.0) mg/dL AST 14 (5-37) U/L ALT 18 (0-40) U/L Alkaline Phosphatase 68 (39-117) U/L Troponin I High Sens 16.2 (<3.5-35.0) ng/L B-Natriuretic Peptide (<100) pg/mL Total Protein 7.0 (6.5-8.0) g/dL Albumin 4.2 (3.5-5.0) g/dL COVID-19 ([facility]) (Negative) COVID-19 Clin Com 01/29/23 01/29/23 Range/Units 14:37 14:37 WBC (4.8-10.8) X10*3/uL RBC (4.60-5.80) X10*6/uL Hgb (14.0-18.0) g/dl Hct (42.0-52.0) % MCV (80.0-98.0) fL MCH (27.0-33.0) pg MCHC (31.0-36.0) g/dl RDW (11.0-16.0) % Plt Count (160-400) X10*3/uL MPV (9.4-12.4) fL Immature Gran % (Auto) (0.0-0.4) % Neut % (Auto) (45-73) % Lymph % (Auto) (20-40) % [place] % (Auto) (2-11) % Eos % (Auto) (0-4) % Baso % (Auto) (0-2) % Lymph # (Auto) (1.2-4.9) X10*3/uL [place] # (Auto) (0.1-1.2) X10*3/uL Eos # (Auto) (0.0-0.4) X10*3/uL Baso # (Auto) (0.0-0.2) X10*3/uL Abs Immat Gran (auto) (0.00-0.03) X10*3/uL Absolute Neuts (auto) (2.0-8.3) x10*3/uL Absolute Nucleated RBC (0.0-0.012) X10*3/uL Nucleated RBC % (auto) (0.0-0.2) /100WBC Sodium (135-145) mmol/L Potassium (3.3-5.1) mmol/L Chloride (96-108) mmol/L Carbon Dioxide (22-29) mmol/L Anion Gap (12-20) BUN (9-16) mg/dL Creatinine (0.5-1.4) mg/dL Estim Creat Clear Calc Estimated GFR Random Glucose (60-115) mg/dL Calcium (8.4-10.2) mg/dL Magnesium (1.6-2.6) mg/dL Total Bilirubin (0.0-1.0) mg/dL AST (5-37) U/L ALT (0-40) U/L Alkaline Phosphatase (39-117) U/L Troponin I High Sens (<3.5-35.0) ng/L B-Natriuretic Peptide < 10 (<100) pg/mL Total Protein (6.5-8.0) g/dL Albumin (3.5-5.0) g/dL COVID-19 ([facility]) Negative (Negative) COVID-19 Clin Com See Note <Toño Ziegler - Last Filed: 01/29/23 17:12> Independent Interpretation I performed an independent interpretation of an: EKG and Plain X-Ray (No acute pathology) <Toño Ziegler - Last Filed: 01/29/23 17:12> Interpretation: Sinus bradycardia with a rate of 54 beats per minute. No Significant change when compared to June 18, 2022 <Toño Ziegler - Last Filed: 01/29/23 17:12> Discharge Plan Discharge Clinical Impression: Chest pain due to GERD <ABELARDO Maradiaga - Last Filed: 01/29/23 14:23> Patient Disposition: Home, Self-Care <ABELARDO Maradiaga - Last Filed: 01/29/23 14:23> Instructions: Gastroesophageal Reflux Disease (ED) <ABELARDO Maradiaga - Last Filed: 01/29/23 14:23> Additional Instructions: Continue taking all of your medications as prescribed. Your workup in the emergency department today was reassuring. Your EKG, blood work and chest x-ray did not show any concerning abnormalities Your chest pain was likely related to GERD Follow-up with your primary doctor <ABELARDO Maradiaga - Last Filed: 01/29/23 14:23> Prescriptions: No Action fluticasone propionate [Flonase Allergy Relief] 50 mcg/actuation spray,suspension 1 spray intranasal BID Qty: 16 3RF Rx Instructions: administer into each nostril valsartan 80 mg tablet 80 mg PO DAILY Qty: 90 1RF famotidine 40 mg tablet 40 mg PO BEDTIME Qty: 90 1RF glipizide 5 mg tablet 5 mg PO DAILY Qty: 90 8RF naproxen [Naprosyn] 500 mg tablet 500 mg PO BID PRN (Reason: pain) Qty: 60 5RF leflunomide 20 mg tablet 20 mg PO DAILY Qty: 30 0RF hydrocortisone 2.5 % cream 1 appl topical BID PRN (Reason: skin irritation) Qty: 20 0RF ergocalciferol (vitamin D2) 1,250 mcg (50,000 unit) capsule 1,250 mcg PO QWEEK Qty: 12 0RF pantoprazole [Protonix] 40 mg tablet,delayed release (DR/EC) 40 mg PO DAILY 30 Days Qty: 30 6RF metoclopramide HCl [Reglan] 10 mg tablet 10 mg PO QIDACHS Qty: 60 6RF bisacodyl [Dulcolax (bisacodyl)] 5 mg tablet,delayed release (DR/EC) 10 mg PO BEDTIME 30 Days Qty: 60 6RF <ABELARDO Maradiaga - Last Filed: 01/29/23 14:23>
[2023-01-29 14:29] VITALS: BP 170/85; PULSE 54; RESP 16; TEMP 36.5; O2SAT 97; BMI 32.6
[2023-01-29 14:43] LABS: MANUAL DIFF FLAG NO
[2023-01-29 14:44] LABS: Basophils Percent Auto 0.4 % (0-2); Eosinophils Absolute Auto 0.1 X10*3/uL (0.0-0.4); Eosinophils Percent Auto 1.1 % (0-4); Hematocrit 42.8 % (42.0-52.0); Hemoglobin 14.7 g/dl (14.0-18.0); Imm Gran Abs Auto 0.01 X10*3/uL (0.00-0.03); Imm Gran Pct Auto 0.1 % (0.0-0.4); Lymphocytes Absolute Auto 2.2 X10*3/uL (1.2-4.9); Lymphocytes Percent Auto 30.1 % (20-40); Mean Corpuscular HGB Conc 34.3 g/dl (31.0-36.0); Mean Corpuscular Hemoglobin 28.1 pg (27.0-33.0); Mean Corpuscular Volume 81.7 fL (80.0-98.0); Mean Platelet Volume 10.3 fL (9.4-12.4); Monocytes Absolute Auto 0.6 X10*3/uL (0.1-1.2); Monocytes Percent Auto 8.1 % (2-11); Neutrophils Absolute Auto 4.4 x10*3/uL (2.0-8.3); Neutrophils Percent Auto 60.2 % (45-73); Platelet Count 254 X10*3/uL (160-400); Red Blood Count 5.24 X10*6/uL (4.60-5.80); White Blood Count 7.3 X10*3/uL (4.8-10.8)
[2023-01-29 15:00] LABS: COVID-19 Test Negative (Negative); IDNOW Serial# BCCEAD1C
[2023-01-29 15:03] LABS: Alanine Aminotransferase 18 U/L (0-40); Albumin Level 4.2 g/dL (3.5-5.0); Alkaline Phosphatase 68 U/L (39-117); Anion Gap 12 (12-20); Aspartate Amino Transferase 14 U/L (5-37); Bilirubin Total 0.5 mg/dL (0.0-1.0); Blood Urea Nitrogen 16 mg/dL (9-16); Calcium 9.1 mg/dL (8.4-10.2); Carbon Dioxide 25 mmol/L (22-29); Chloride 104 mmol/L (96-108); Creatinine Clr Calc Pharmacy 95.6; Estimated Glomerular Filt Rate > 60; Glucose Random 226 mg/dL (60-115); Magnesium 1.9 mg/dL (1.6-2.6); Potassium 3.9 mmol/L (3.3-5.1); Sodium 137 mmol/L (135-145)
[2023-01-29 15:10] LABS: Troponin-I High Sensitivity 16.2 ng/L (<3.5-35.0)
[2023-01-29 15:11] LABS: B Type Natriuretic Peptide < 10 pg/mL (<100)
[2023-01-29] MEDS: Magnesium Hydrox/Alum Hydrox 30 ML ORAL.SUSP PO (17:48)
[2023-01-29] MEDS: Lidocaine HCl Viscous 2 % 15 ML SOLUTION MUCOUS MEM (17:48)
[2023-01-29] MEDS: Ondansetron ODT 4 MG TAB.RAPDIS TRANSLINGU (17:48)
== END 2023-01-29 18:25 | disposition home or self-care (01) ==
PROVIDERS: Physician Assistant Medical; Emergency Provider Emergency Medicine Emergency Medical Services
DX: R07.89 Other chest pain (principal); K21.9 Gastro-esophageal reflux disease without esophagitis; Z20.822 Contact with and (suspected) exposure to COVID-19; E11.9 Type 2 diabetes mellitus without complications; I10 Essential (primary) hypertension; Z79.899 Other long term (current) drug therapy
CPT/HCPCS: 36415; 71046; 80053; 83735; 83880; 84484; 85025; 87635; 93005; 99283

== ENCOUNTER 2023-03-12 10:27 | Emergency (ER) | payer OTHER, SELFPAY ==
[2023-03-12 10:28] VITALS: BP 146/99; PULSE 58; RESP 20; TEMP 36.4; O2SAT 98; BMI 32.9
--- NOTE | 2023-03-12 10:56 | ED.URI ---
HPI - URI/Sore Throat General Chief Complaint: Upper Respiratory Symptoms Stated Complaint: sinus pain infection Time Seen by Provider: 03/12/23 10:32 Source: patient Mode of arrival: ambulatory Limitations: no limitations History of Present Illness HPI Narrative: 47 year old male with PMH of HTN and DM presents to the ED with sinus congestion and pressure X few days worsening.. Additionally, patient reports green nasal discharge. Patient reports he gets sinus infections frequently and his most recent one was 2 months ago, feels like his typical sinus infection. Reports they all have required antibiotics inthe past.. Denies radiation of symptoms. He denies Cp, GALLARDO, SOB, cough, sore throat, fevers or chills additionally. Related Data Previous Rx's Medication Instructions Recorded ergocalciferol (vitamin D2) 1,250 1,250 mcg PO QWEEK #12 caps 09/23/22 mcg (50,000 unit) capsule valsartan 80 mg tablet 80 mg PO DAILY #90 tabs 09/25/22 famotidine 40 mg tablet 40 mg PO BEDTIME #90 tabs 09/29/22 glipizide 5 mg tablet 5 mg PO DAILY #90 tabs 11/03/22 naproxen 500 mg tablet (Naprosyn) 500 mg PO BID PRN pain #60 tabs 11/03/22 bisacodyl 5 mg tablet,delayed 10 mg PO BEDTIME 30 days #60 tabs 12/14/22 release (Dulcolax (bisacodyl)) pantoprazole 40 mg tablet,delayed 40 mg PO DAILY 30 days #30 tabs 12/14/22 release (Protonix) amoxicillin 875 mg-potassium 1 tab PO BID 7 days #14 tabs 03/12/23 clavulanate 125 mg tablet prednisone 20 mg tablet 40 mg PO DAILY 5 days #10 tabs 03/12/23 Allergies Allergy/AdvReac Type Severity Reaction Status Date / Time lisinopril Allergy Mild Closed Verified 12/14/22 16:25 throat sulfamethoxazole Allergy Mild Rash Verified 01/06/23 10:49 [From Bactrim] trimethoprim [From Bactrim] Allergy Mild Rash Verified 01/06/23 10:49 fish derived [fish] Allergy Unknown Rash, Verified 01/06/23 10:49 Redness morphine [MORPHINE] Allergy Unknown Nausea and Verified 01/06/23 10:49 Vomiting Sulfa (Sulfonamide Allergy Unknown rash Verified 12/14/22 16:25 Antibiotics) Fish Containing Products AdvReac Unknown Worsens Verified 01/06/23 10:49 Gout symptoms Review of Systems Review of Systems: Constitutional : No Weight loss, No Fever, No Chills, No Fatigue, No Malaise ENT/Mouth : No sore throat, + Rhinorrhea, No cough, + facial pressure and pain Eyes: No Eye Pain, No Swelling, No Redness, + discharge and crusting Cardiovascular : No Chest Pain, No SOB, No Dyspnea on Exertion, No Orthopnea, No Edema, No Palpitations Respiratory : No Cough, No Sputum, No Wheezing Gastrointestinal : No Nausea, No Vomiting, No Diarrhea, No Constipation, No abdominal Pain, No Hematochezia, No Melena Genitourinary : No Dysuria, No Urinary Frequency, No Hematuria, Musculoskeletal : No joint pain, No Myalgias, No Joint Swelling Skin : No Skin Lesions, No rash Neuro : No Weakness, No Numbness, No Dizziness, No Headache Psych : No Anxiety/Panic, No Depression Heme/Lymph: No Bruising, No Bleeding, No Lymphadenopathy All other systems reviewed and are negative Yes all other systems are reviewed and are negative PMFSH Past Medical History Attestation statement: The following information was validated with the patient. 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 Mother Colon cancer Diabetes Hypertension Family/Other Diabetes Hypertension Social History Social History Housing: Apartment Alcohol intake: never Patient Tobacco Use Status: Never used Tobacco e-Cigarette/Vaping Use: Never Used Second Hand Smoke Exposure: Yes Advance Directives: No Advance Directives Information Provided: No service: No Current occupational status: disabled Current occupational exposures/hazards: No Cognitive needs: No Hearing needs: No Vision needs: Yes Physical Exam Vital Signs: Vital Signs: Last Vital Signs Temp 97.6 F 03/12/23 10:28 Pulse 58 03/12/23 10:28 Resp 20 03/12/23 10:28 BP 146/99 H 03/12/23 10:28 Pulse Ox 98 03/12/23 10:28 O2 Del Method Room Air 03/12/23 10:28 BMI result Body Mass Index 32.9 VSS Appearance: Alert.? Oriented X3.? No acute distress.? Head: Normocephalic, atraumatic, no step-offs or deformities Eyes: Pupils equal, round and reactive to light.? ENT: Pharynx normal.??External ears normal, TMs normal bilaterally and EAC's normal. No pain with manipulation of external ears bilaterally. No mastoid tenderness. + maxillary and frontal tenderness to light palpation, + rhinnorhea. No crusting or discharge of bilateral eyes.+ facial pressure w/ forward bending Neck: Normal inspection.? Neck supple.?No lymphadenopathy. No meningeal signs CVS: Normal heart rate and rhythm.? Pulses normal.? Respiratory: No respiratory distress.? Breath sounds normal.? Abdomen: Soft and nontender.? Skin: Skin warm and dry.? Normal skin color.? Normal skin turgor.? Neuro: Oriented X 3.? No motor deficit.? No sensory deficit. CN 2-12 intact Course Reevaluation(s) Reevaluation #1: Patient to be discharged home with Augmentin prednisone for acute sinusitis. Advised to return with new or worsening symptoms. Educated patient on diagnosis and treatment plan, answered all question, patient verbalizes understanding. At this time patient will be discharged home, advised to return with new or worsening symptoms. Educated on worrisome signs and symptoms and when to return. At this time I feel comfortable discharge home. Time: 11:19 Medical Decision Making Medical Decision Making [facility] Narrative: 1112 47 year old male presents with sinus congestion and green nasal discharge. Physical exam w/ maxillary and frontal sinus tenderness to light palpation, + rhinnorhea. No crusting or discharge of bilateral eyes. and pressure to face w/ forward bending Ddx: sinusitis (most likely) vs allergies vs common cold vs tension headache. No signs of stroke, posterior stroke, meningitis, encephalitis or intracranial hemorrhage Differential Diagnosis Differential Diagnoses: The differential diagnosis associated with the presentation includes sinusitis vs allergies vs common cold vs tension headache. No signs of stroke, posterior stroke, meningitis, encephalitis or intracranial hemorrhage Admission/Observation Consideration of admission/observation: Escalation of care including admission/observation considered Prescription Management I considered prescription management with: Antibiotic Core Measures AMI core measures followed: Yes Measure exclusions: not indicated Critical Care Time Critical Care Time Critical Care Time: No Discharge Plan Discharge Clinical Impression: Sinusitis Patient Disposition: Home, Self-Care Instructions: Sinusitis (ED) Additional Instructions: Take your medications as prescribed. If you were prescribed antibiotics today, it is important that you take your medication to their entirety, do not skip any doses, do not finish them early. Follow-up with your primary care provider this week. Return to the emergency department with new or worsening symptoms. Such as fevers, chills, chest pain, shortness of breath, nausea, vomiting, dizziness, headache, vision changes, lethargy In case of emergency call 911 Prescriptions: New prednisone 20 mg tablet 40 mg PO DAILY 5 Days Qty: 10 0RF amoxicillin-pot clavulanate 875-125 mg tablet 1 tab PO BID 7 Days Qty: 14 0RF No Action valsartan 80 mg tablet 80 mg PO DAILY Qty: 90 1RF famotidine 40 mg tablet 40 mg PO BEDTIME Qty: 90 1RF glipizide 5 mg tablet 5 mg PO DAILY Qty: 90 8RF naproxen [Naprosyn] 500 mg tablet 500 mg PO BID PRN (Reason: pain) Qty: 60 5RF ergocalciferol (vitamin D2) 1,250 mcg (50,000 unit) capsule 1,250 mcg PO QWEEK Qty: 12 0RF pantoprazole [Protonix] 40 mg tablet,delayed release (DR/EC) 40 mg PO DAILY 30 Days Qty: 30 6RF bisacodyl [Dulcolax (bisacodyl)] 5 mg tablet,delayed release (DR/EC) 10 mg PO BEDTIME 30 Days Qty: 60 6RF Referrals: Da Eckert MD [Primary Care Provider] - 3 days
== END 2023-03-12 11:33 | disposition home or self-care (01) ==
PROVIDERS: Emergency Provider Emergency Medicine; PCP Internal Medicine
DX: J32.9 Chronic sinusitis, unspecified (principal); E11.9 Type 2 diabetes mellitus without complications; Z79.899 Other long term (current) drug therapy
CPT/HCPCS: 99282; 99283

== ENCOUNTER 2023-03-30 18:39 | Emergency (ER) | payer OTHER, SELFPAY ==
[2023-03-30 18:54] VITALS: BP 193/73; PULSE 57; RESP 18; TEMP 37.2; O2SAT 97; BMI 32.1
--- NOTE | 2023-03-30 18:57 | ED_ITS ---
HPI - URI/Sore Throat General Chief Complaint: Upper Respiratory Symptoms <ABELARDO Parker - Last Filed: 03/30/23 18:59> Stated Complaint: sinus infection for two weeks <ABELARDO Parker - Last Filed: 03/30/23 18:59> Time Seen by Provider: 03/30/23 19:23 <ABELARDO Parker - Last Filed: 03/30/23 18:59> Source: patient <ABELARDO Quiroz - Last Filed: 03/30/23 19:48> Mode of arrival: ambulatory <ABELARDO Quiroz Last Filed: 03/30/23 19:48> Limitations: no limitations <ABELARDO Quiroz Last Filed: 03/30/23 19:48> History of Present Illness HPI Narrative: 47 year old male with PMH of HTN and DM presents to the ED with sinus con gestion and pressure X 2 weeks not improving despite augmentin and prednisone. Patient reports he gets sinus infections frequently and they usually respond to antibiotics. He denies Cp, GALLARDO, SOB, cough, sore throat, fevers or chills additionally. <ABELARDO Quiroz Last Filed: 03/30/23 19:48> Related Data Home Medications: Previous Rx's Medication Instructions Recorded ergocalciferol (vitamin D2) 1,250 1,250 mcg PO QWEEK #12 caps 09/23/22 mcg (50,000 unit) capsule valsartan 80 mg tablet 80 mg PO DAILY #90 tabs 09/25/22 famotidine 40 mg tablet 40 mg PO BEDTIME #90 tabs 09/29/22 glipizide 5 mg tablet 5 mg PO DAILY #90 tabs 11/03/22 naproxen 500 mg tablet (Naprosyn) 500 mg PO BID PRN pain #60 tabs 11/03/22 bisacodyl 5 mg tablet,delayed 10 mg PO BEDTIME 30 days #60 tabs 12/14/22 release (Dulcolax (bisacodyl)) pantoprazole 40 mg tablet,delayed 40 mg PO DAILY 30 days #30 tabs 12/14/22 release (Protonix) amoxicillin 875 mg-potassium 1 tab PO BID 7 days #14 tabs 03/12/23 clavulanate 125 mg tablet prednisone 20 mg tablet 40 mg PO DAILY 5 days #10 tabs 03/12/23 doxycycline hyclate 100 mg capsule 100 mg PO BID 10 days #20 caps 03/30/23 <ABELARDO Parker - Last Filed: 03/30/23 18:59> Allergies/Adverse Reactions: Allergies Allergy/AdvReac Type Severity Reaction Status Date / Time lisinopril Allergy Mild Closed Verified 12/14/22 16:25 throat sulfamethoxazole Allergy Mild Rash Verified 01/06/23 10:49 [From Bactrim] trimethoprim [From Bactrim] Allergy Mild Rash Verified 01/06/23 10:49 fish derived [fish] Allergy Unknown Rash, Verified 01/06/23 10:49 Redness morphine [MORPHINE] Allergy Unknown Nausea and Verified 01/06/23 10:49 Vomiting Sulfa (Sulfonamide Allergy Unknown rash Verified 12/14/22 16:25 Antibiotics) Fish Containing Products AdvReac Unknown Worsens Verified 01/06/23 10:49 Gout symptoms <ABELARDO Parker Last Filed: 03/30/23 18:59> Review of Systems Review of Systems: Constitutional : No Weight loss, No Fever, No Chills, No Fatigue, No Malaise ENT/Mouth : No sore throat, No Rhinorrhea, + sinus congestion Eyes: No Eye Pain, No Swelling, No Redness Cardiovascular : No Chest Pain, No SOB, No Dyspnea on Exertion, No Orthopnea, No Edema, No Palpitations Respiratory : No Cough, No Sputum, No Wheezing Gastrointestinal : No Nausea, No Vomiting, No Diarrhea, No Constipation, No abdominal Pain, No Hematochezia, No Melena Genitourinary : No Dysuria, No Urinary Frequency, No Hematuria, Musculoskeletal : No joint pain, No Myalgias, No Joint Swelling Skin : No Skin Lesions, No rash Neuro : No Weakness, No Numbness, No Dizziness, No Headache Psych : No Anxiety/Panic, No Depression All other systems reviewed and are negative <ABELARDO Quiroz Last Filed: 03/30/23 19:48> Yes all other systems are reviewed and are negative <ABELARDO Quiroz Last Filed: 03/30/23 19:48> [facility] Past Medical History Attestation statement: The following information was validated with the patient. 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 Mother Colon cancer Diabetes Hypertension Family/Other Diabetes Hypertension <ABELARDO Parker - Last Filed: 03/30/23 18:59> Social History Social History: Social History Housing: Apartment Alcohol intake: never Patient Tobacco Use Status: Never used Tobacco e-Cigarette/Vaping Use: Never Used Second Hand Smoke Exposure: Yes Advance Directives: No Advance Directives Information Provided: No service: No Current occupational status: disabled Current occupational exposures/hazards: No Cognitive needs: No Hearing needs: No Vision needs: Yes <ABELARDO Parker - Last Filed: 03/30/23 18:59> Physical Exam Vital Signs: Vital Signs: Last Vital Signs Temp 98.9 F 03/30/23 18:54 Pulse 57 03/30/23 18:54 Resp 18 03/30/23 18:54 BP 193/73 H 03/30/23 18:54 Pulse Ox 97 03/30/23 18:54 O2 Del Method Room Air 03/30/23 18:54 BMI result Body Mass Index 32.1 <ABELARDO Parker - Last Filed: 03/30/23 18:59> Vital Signs: Last Vital Signs Temp 98.9 F 03/30/23 18:54 Pulse 57 03/30/23 18:54 Resp 18 03/30/23 18:54 BP 193/73 H 03/30/23 18:54 Pulse Ox 97 03/30/23 18:54 O2 Del Method Room Air 03/30/23 18:54 BMI result Body Mass Index 32.1 vss <ABELARDO Quiroz - Last Filed: 03/30/23 19:48> Appearance: Alert.? Oriented X3.? No acute distress.? Head:? Normocephalic, atraumatic, no step-offs or deformities Eyes: Pupils equal, round and reactive to light.? ENT: Pharynx normal.??External ears normal, TMs normal bilaterally and EAC's normal.? No pain with manipulation of external ears bilaterally.? No mastoid tenderness. + maxillary and frontal tenderness to light palpation, + rhinnorhea. No crusting or discharge of bilateral eyes.+ facial pressure w/ forward bending Neck: Normal inspection.? Neck supple.?No lymphadenopathy. No meningeal signs CVS: Normal heart rate and rhythm.? Pulses normal.? Respiratory: No respiratory distress.? Breath sounds normal.? Abdomen: Soft and nontender.? Skin: Skin warm and dry.? Normal skin color.? Normal skin turgor.? Neuro: Oriented X 3.? No motor deficit.? No sensory deficit. CN 2-12 intact <ABELARDO Quiroz - Last Filed: 03/30/23 19:48> Course Course Course Narrative: RME - 47 yo male presents to the ER for evaluation of a sinus infection for the last 2 weeks. No relief with augmentin and prednisone. Plan: covid swab <ABELARDO Parker - Last Filed: 03/30/23 18:59> Reevaluation(s) Reevaluation #1: COVID pending. Will discharge patient home on doxycycline. Advised to follow-up with ears nose and throat. Educated patient on diagnosis and treatment plan, answered all question, patient verbalizes understanding. At this time patient will be discharged home, advised to return with new or worsening symptoms. Educated on worrisome signs and symptoms and when to return. At this time I feel comfortable discharge home. <ABELARDO Quiroz - Last Filed: 03/30/23 19:48> Time: 19:30 <ABELARDO Quiroz - Last Filed: 03/30/23 19:48> Medical Decision Making Medical Decision Making MDM Narrative: 47 year old male presents with sinus congestion and green nasal discharge despite course w/ augmentin and prednison . Physical exam w/ maxillary and frontal sinus tenderness to light palpation,. No crusting or discharge of bilateral eyes. and pressure to face w/ forward bending Ddx: sinusitis (most likely)? vs allergies vs common cold vs tension headache.? No signs of stroke, posterior stroke, meningitis, encephalitis or intracranial hemorrhage Plan- covid <ABELARDO Quiroz - Last Filed: 03/30/23 19:48> Differential Diagnosis Differential Diagnoses: The differential diagnosis associated with the presentation includes <ABELARDO Quiroz - Last Filed: 03/30/23 19:48> sinusitis (most likely)? vs allergies vs common cold vs tension headache.? No signs of stroke, posterior stroke, meningitis, encephalitis or intracranial hemorrhage <ABELARDO Quiroz - Last Filed: 03/30/23 19:48> Admission/Observation Consideration of admission/observation: Escalation of care including admission/observation considered <ABELARDO Quiroz Last Filed: 03/30/23 19:48> Lab Data Labs: Lab Results 03/30/23 Range/Units 19:20 COVID-19 ([facility]) Negative (Negative) COVID-19 Clin Com See Note <ABELARDO Parker - Last Filed: 03/30/23 18:59> Lab Results 03/30/23 Range/Units 19:20 COVID-19 ([facility]) Negative (Negative) COVID-19 Clin Com See Note <ABELARDO Quiroz Last Filed: 03/30/23 19:48> Core Measures Measure exclusions: not indicated <ABELARDO Quiroz Last Filed: 03/30/23 19:48> Critical Care Time Critical Care Time Critical Care Time: No <ABELARDO Quiroz Last Filed: 03/30/23 19:48> Discharge Plan Discharge Clinical Impression: Acute recurrent sinusitis <ABELARDO Parker Last Filed: 03/30/23 18:59> Patient Disposition: Home, Self-Care <ABELARDO Parker Last Filed: 03/30/23 18:59> Instructions: Sinusitis (ED) <ABELARDO Parker Last Filed: 03/30/23 18:59> Additional Instructions: Take your medications as prescribed. If you were prescribed antibiotics today, it is important that you take your medication to their entirety, do not skip any doses, do not finish them early. Follow-up with your primary care provider this week. Return to the emergency department with new or worsening symptoms. Such as fevers, chills, chest pain, shortness of breath, nausea, vomiting, dizziness, headache, vision changes, lethargy In case of emergency call 911 <ABELARDO Parker Last Filed: 03/30/23 18:59> Prescriptions: New doxycycline hyclate 100 mg capsule 100 mg PO BID 10 Days Qty: 20 0RF No Action valsartan 80 mg tablet 80 mg PO DAILY Qty: 90 1RF famotidine 40 mg tablet 40 mg PO BEDTIME Qty: 90 1RF glipizide 5 mg tablet 5 mg PO DAILY Qty: 90 8RF naproxen [Naprosyn] 500 mg tablet 500 mg PO BID PRN (Reason: pain) Qty: 60 5RF prednisone 20 mg tablet 40 mg PO DAILY 5 Days Qty: 10 0RF amoxicillin-pot clavulanate 875-125 mg tablet 1 tab PO BID 7 Days Qty: 14 0RF ergocalciferol (vitamin D2) 1,250 mcg (50,000 unit) capsule 1,250 mcg PO QWEEK Qty: 12 0RF pantoprazole [Protonix] 40 mg tablet,delayed release (DR/EC) 40 mg PO DAILY 30 Days Qty: 30 6RF bisacodyl [Dulcolax (bisacodyl)] 5 mg tablet,delayed release (DR/EC) 10 mg PO BEDTIME 30 Days Qty: 60 6RF <ABELARDO Parker - Last Filed: 03/30/23 18:59> Referrals: Howard Barksdale [Physician] - 2 days <ABELARDO Parker - Last Filed: 03/30/23 18:59> Stand Alone Forms: Work/School Release <ABELARDO Parker - Last Filed: 03/30/23 18:59>
[2023-03-30 19:36] LABS: COVID-19 Test Negative (Negative); IDNOW Serial# BCCEAD1C
== END 2023-03-30 20:03 | disposition home or self-care (01) ==
PROVIDERS: Physician Assistant; Emergency Provider Emergency Medicine; PCP Internal Medicine
DX: J01.91 Acute recurrent sinusitis, unspecified (principal); Z20.822 Contact with and (suspected) exposure to COVID-19; Z20.828 Contact with and (suspected) exposure to other viral communicable diseases; Z79.899 Other long term (current) drug therapy
CPT/HCPCS: 87635; 99282; 99283

== ENCOUNTER → 2023-04-06 13:49 | Outpatient (BNVA) | payer OTHER, SELFPAY | PROVIDERS: PCP Internal Medicine; Visit Provider Student in an Organized Health Care Education/Training Program | DX: M06.00 Rheumatoid arthritis without rheumatoid factor, unspecified site (principal); E11.9 Type 2 diabetes mellitus without complications; M90.552 Osteonecrosis in diseases classified elsewhere, left thigh; M1A.0720 Idiopathic chronic gout, left ankle and foot, without tophus (tophi); M1A.0710 Idiopathic chronic gout, right ankle and foot, without tophus (tophi); I10 Essential (primary) hypertension | CPT/HCPCS: 99212 ==

== ENCOUNTER 2023-04-23 10:47 | Emergency (ER) | payer OTHER, SELFPAY ==
--- NOTE | ~2023-04-23 | XR_ITS ---
EXAMINATION: XR CHEST CLINICAL INFORMATION: Cough, chest wall pain. COMPARISON: Chest radiographs dated 01/29/2023. TECHNIQUE: 2 views of the chest were obtained. FINDINGS: No significant abnormality is noted involving the heart, lungs, mediastinum, bony thorax or soft tissues. XR/XR chest 2V IMPRESSION: Unremarkable examination.
--- NOTE | 2023-04-23 10:50 | ECG_ITS ---
Test Reason : CP Blood Pressure : / mmHG Vent. Rate : 054 BPM Atrial Rate : 054 BPM P-R Int : 146 ms QRS Dur : 100 ms QT Int : 398 ms P-R-T Axes : 057 -06 010 degrees QTc Int : 377 ms Sinus bradycardia Minimal voltage criteria for LVH, may be normal variant ( R in aVL ) Borderline ECG When compared with ECG of 29-JAN-2023 14:25, No significant change was found Referred By: Generic ED Physician Electronically Signed By:Freddie Guillermo
[2023-04-23 10:53] VITALS: BP 176/90; PULSE 57; RESP 19; TEMP 36.6; O2SAT 94; BMI 31.6
[2023-04-23 11:08] LABS: MANUAL DIFF FLAG NO
[2023-04-23 11:10] LABS: Basophils Percent Auto 0.3 % (0-2); Eosinophils Absolute Auto 0.1 X10*3/uL (0.0-0.4); Eosinophils Percent Auto 1.1 % (0-4); Hematocrit 42.1 % (42.0-52.0); Hemoglobin 14.7 g/dl (14.0-18.0); Imm Gran Abs Auto 0.01 X10*3/uL (0.00-0.03); Imm Gran Pct Auto 0.1 % (0.0-0.4); Lymphocytes Percent Auto 41.3 % (20-40); Mean Corpuscular HGB Conc 34.9 g/dl (31.0-36.0); Mean Corpuscular Hemoglobin 27.8 pg (27.0-33.0); Mean Corpuscular Volume 79.7 fL (80.0-98.0); Mean Platelet Volume 10.2 fL (9.4-12.4); Monocytes Absolute Auto 0.4 X10*3/uL (0.1-1.2); Monocytes Percent Auto 4.9 % (2-11); Neutrophils Absolute Auto 3.7 x10*3/uL (2.0-8.3); Neutrophils Percent Auto 52.3 % (45-73); Platelet Count 318 X10*3/uL (160-400); Red Blood Count 5.28 X10*6/uL (4.60-5.80); Red Cell Distribution Width 12.9 % (11.0-16.0); White Blood Count 7.1 X10*3/uL (4.8-10.8)
[2023-04-23 11:29] LABS: Anion Gap 12 (12-20); Blood Urea Nitrogen 16 mg/dL (9-16); Calcium 10.3 mg/dL (8.4-10.2); Carbon Dioxide 27 mmol/L (22-29); Chloride 106 mmol/L (96-108); Creatinine Clr Calc Pharmacy 102.6; Estimated Glomerular Filt Rate > 60; Glucose Random 162 mg/dL (60-115); Potassium 4.2 mmol/L (3.3-5.1); Sodium 141 mmol/L (135-145)
[2023-04-23 11:37] LABS: Troponin-I High Sensitivity 17.9 ng/L (<3.5-35.0)
--- NOTE | 2023-04-23 12:07 | ED.GENADULT ---
HPI - General Adult General Chief complaint: General Medical Stated complaint: chest pain Time Seen by Provider: 04/23/23 12:06 History of Present Illness HPI narrative: Patient complains of a cough for 2 weeks productive of sputum, and now whenever he coughs he gets pain in his chest but he has no other chest pain except when he coughs, it is not related to exertion there is no shortness of breath no diaphoresis no vomiting Related Data Home Medications Medication Instructions Recorded Confirmed multivitamin (Daily Multi-Vitamin 1 tab PO DAILY 04/06/23 tablet) Previous Rx's Medication Instructions Recorded valsartan 80 mg tablet 80 mg PO DAILY #90 tabs 09/25/22 glipizide 5 mg tablet 5 mg PO DAILY #90 tabs 11/03/22 pantoprazole 40 mg tablet,delayed 40 mg PO DAILY 30 days #30 tabs 12/14/22 release (Protonix) etanercept 50 mg/mL (1 mL) 50 mg subcut QWEEK #4 mL 04/08/23 subcutaneous pen injector (Enbrel [employer]) benzonatate 100 mg capsule 100 mg PO BID PRN cough #14 caps 04/23/23 doxycycline hyclate 100 mg tablet 100 mg PO BID 7 days #14 tabs 04/23/23 Allergies Allergy/AdvReac Type Severity Reaction Status Date / Time lisinopril Allergy Mild Closed Verified 04/06/23 13:57 throat sulfamethoxazole Allergy Mild Rash Verified 04/06/23 13:57 [From Bactrim] trimethoprim [From Bactrim] Allergy Mild Rash Verified 04/06/23 13:57 fish derived [fish] Allergy Unknown Rash, Verified 04/06/23 13:57 Redness morphine [MORPHINE] Allergy Unknown Nausea and Verified 04/06/23 13:57 Vomiting Sulfa (Sulfonamide Allergy Unknown rash Verified 04/06/23 13:57 Antibiotics) Fish Containing Products AdvReac Unknown Worsens Verified 04/06/23 13:57 Gout symptoms PMFSH Past Medical History Source: nursing notes reviewed Medical History Avascular necrosis of bone of hip Chronic GERD Chronic GERD Cough COVID-19 Diabetes Diabetes mellitus Diabetes mellitus with coincident hypertension Dysuria History of cardiac murmur Obesity Sinus infection Surgical History H/O colonoscopy H/O total hip arthroplasty H/O wrist surgery History of esophagogastroduodenoscopy (EGD) History of surgery on right wrist History of tonsillectomy History of umbilical hernia repair History of wisdom tooth extraction Family History Family History Father No problems noted. Mother Colon cancer Diabetes Hypertension Family/Other Diabetes Hypertension Social History Social History Housing: Apartment Alcohol intake: never Patient Tobacco Use Status: Never used Tobacco e-Cigarette/Vaping Use: Never Used Second Hand Smoke Exposure: Yes Advance Directives: No Advance Directives Information Provided: No service: No Current occupational status: disabled Current occupational exposures/hazards: No Cognitive needs: No Hearing needs: No Vision needs: Yes Physical Exam ED Vital Signs: Vital Signs - 24 hr 04/23/23 10:53 04/23/23 14:58 Temperature 98 F Pulse Rate 57 51 Respiratory Rate 19 16 Blood Pressure 176/90 H 175/86 H Pulse Oximetry 94 99 Oxygen Delivery Method Room Air Room Air BMI result Body Mass Index 31.6 General appearance is comfortable no acute distress Neck is supple Chest is clear to auscultation bilateral Chest wall is tender to the touch, pain is reproduced with deep breath or cough or certain movements The heart no murmur auscultated Abdomen soft nontender Extremities no edema no calf tenderness or swelling Skin no rash Neuro no focal deficit Course Course Course Narrative: Patient with complaint of cough for 2 weeks and over last several days chest pain only with coughing which occurs with coughing spells throughout the day, pain is also reproducible with palpating the chest wall, so pain is easily reproducible There is no pain except when he coughs, it is not related to exertion there is no shortness of breath no vomiting no diaphoresis no radiation of pain, patient is pain free except when he coughs EKG showed sinus bradycardia with a rate of 54, there is no acute ST depression or elevation. No acute ischemic change Repeat EKG was done and repeat EKG was unchanged Initial troponin was 17 and repeat was 24 Case was discussed with attending physician Saad who reviewed EKGs troponin and talked to the patient and did his own history and physical, and agrees history is not concerning for heart attack as his chest pain only with cough and agreed patient can be discharged with diagnosis chest wall pain and bronchitis Patient is advised to return if chest Pain changes or worsens in any way, and is discharged well-appearing, pain-free Reevaluation(s) Reevaluation #1: patient with continual pain that is from the coughing, he does not describe typical ischemic cardiac symptoms, EKG and serial troponins are negative Time: 15:36 Medical Decision Making Lab Data MDM Lab Attestation statement: I reviewed the patient's lab results. 04/23/23 11:03 04/23/23 11:03 Labs: Lab Results 04/23/23 04/23/23 04/23/23 Range/Units 11:03 11:03 11:03 WBC 7.1 (4.8-10.8) X10*3/uL RBC 5.28 (4.60-5.80) X10*6/uL Hgb 14.7 (14.0-18.0) g/dl Hct 42.1 (42.0-52.0) % MCV 79.7 L (80.0-98.0) fL MCH 27.8 (27.0-33.0) pg MCHC 34.9 (31.0-36.0) g/dl RDW 12.9 (11.0-16.0) % Plt Count 318 D (160-400) X10*3/uL MPV 10.2 (9.4-12.4) fL Immature Gran % (Auto) 0.1 (0.0-0.4) % Neut % (Auto) 52.3 (45-73) % Lymph % (Auto) 41.3 H (20-40) % [place] % (Auto) 4.9 (2-11) % Eos % (Auto) 1.1 (0-4) % Baso % (Auto) 0.3 (0-2) % Lymph # (Auto) 3.0 (1.2-4.9) X10*3/uL [place] # (Auto) 0.4 (0.1-1.2) X10*3/uL Eos # (Auto) 0.1 (0.0-0.4) X10*3/uL Baso # (Auto) 0.0 (0.0-0.2) X10*3/uL Abs Immat Gran (auto) 0.01 (0.00-0.03) X10*3/uL Absolute Neuts (auto) 3.7 (2.0-8.3) x10*3/uL Absolute Nucleated RBC 0.000 (0.0-0.012) X10*3/uL Nucleated RBC % (auto) 0.0 (0.0-0.2) /100WBC Sodium 141 (135-145) mmol/L Potassium 4.2 (3.3-5.1) mmol/L Chloride 106 (96-108) mmol/L Carbon Dioxide 27 (22-29) mmol/L Anion Gap 12 (12-20) BUN 16 (9-16) mg/dL Creatinine 1.00 (0.5-1.4) mg/dL Estim Creat Clear Calc 102.6 Estimated GFR > 60 Random Glucose 162 H (60-115) mg/dL Calcium 10.3 H D (8.4-10.2) mg/dL Troponin I High Sens 17.9 (<3.5-35.0) ng/L COVID-19 ([facility]) (Negative) COVID-19 Clin Com 04/23/23 04/23/23 Range/Units 12:20 13:58 WBC (4.8-10.8) X10*3/uL RBC (4.60-5.80) X10*6/uL Hgb (14.0-18.0) g/dl Hct (42.0-52.0) % MCV (80.0-98.0) fL MCH (27.0-33.0) pg MCHC (31.0-36.0) g/dl RDW (11.0-16.0) % Plt Count (160-400) X10*3/uL MPV (9.4-12.4) fL Immature Gran % (Auto) (0.0-0.4) % Neut % (Auto) (45-73) % Lymph % (Auto) (20-40) % [place] % (Auto) (2-11) % Eos % (Auto) (0-4) % Baso % (Auto) (0-2) % Lymph # (Auto) (1.2-4.9) X10*3/uL [place] # (Auto) (0.1-1.2) X10*3/uL Eos # (Auto) (0.0-0.4) X10*3/uL Baso # (Auto) (0.0-0.2) X10*3/uL Abs Immat Gran (auto) (0.00-0.03) X10*3/uL Absolute Neuts (auto) (2.0-8.3) x10*3/uL Absolute Nucleated RBC (0.0-0.012) X10*3/uL Nucleated RBC % (auto) (0.0-0.2) /100WBC Sodium (135-145) mmol/L Potassium (3.3-5.1) mmol/L Chloride (96-108) mmol/L Carbon Dioxide (22-29) mmol/L Anion Gap (12-20) BUN (9-16) mg/dL Creatinine (0.5-1.4) mg/dL Estim Creat Clear Calc Estimated GFR Random Glucose (60-115) mg/dL Calcium (8.4-10.2) mg/dL Troponin I High Sens 24.5 (<3.5-35.0) ng/L COVID-19 ([facility]) Negative (Negative) COVID-19 Clin Com See Note Discharge Plan Discharge Clinical Impression: Bronchitis, Chest wall pain Patient Disposition: Home, Self-Care Additional Instructions: EKG did not show any signs of a heart attack Your symptoms of chest pain only with cough are not heart attack symptoms Should chest pain change in any way or become present when you are not coughing, or should you develop any change or worse condition return to the ER any time For the cough I wrote for a cough medicine and as cough is been going on for 2 weeks I wrote for antibiotic Prescriptions: New doxycycline hyclate 100 mg tablet 100 mg PO BID 7 Days Qty: 14 0RF benzonatate 100 mg capsule 100 mg PO BID PRN (Reason: cough) Qty: 14 0RF No Action valsartan 80 mg tablet 80 mg PO DAILY Qty: 90 1RF glipizide 5 mg tablet 5 mg PO DAILY Qty: 90 8RF Enbrel [employer] 50 mg/mL (1 mL) pen injector 50 mg subcut QWEEK Qty: 4 2RF pantoprazole [Protonix] 40 mg tablet,delayed release (DR/EC) 40 mg PO DAILY 30 Days Qty: 30 6RF multivitamin [Daily Multi-Vitamin] Tablet 1 tab PO DAILY Interventions: ED Discharge Assessment Last Done: 04/23/23 15:06 Discharge Date/Time: 04/24/23 15:46
[2023-04-23 13:17] LABS: COVID-19 Test Negative (Negative); IDNOW Serial# 08D9AD1C
[2023-04-23 14:26] LABS: Troponin-I High Sensitivity 24.5 ng/L (<3.5-35.0)
[2023-04-23 14:58] VITALS: BP 175/86; PULSE 51; RESP 16; O2SAT 99
--- NOTE | 2023-04-23 15:00 | ECG_ITS ---
Test Reason : cp Blood Pressure : / mmHG Vent. Rate : 055 BPM Atrial Rate : 055 BPM P-R Int : 150 ms QRS Dur : 102 ms QT Int : 396 ms P-R-T Axes : 064 -02 006 degrees QTc Int : 378 ms Sinus bradycardia Incomplete right bundle branch block Minimal voltage criteria for LVH, may be normal variant ( R in aVL ) Borderline ECG When compared with ECG of 23-APR-2023 10:47, No significant change was found Referred By: Tay Chan Electronically Signed By:Freddie Guillermo
== END 2023-04-24 15:46 | disposition home or self-care (01) ==
PROVIDERS: Physician Assistant Medical; Emergency Provider Emergency Medicine; PCP Internal Medicine
DX: J40 Bronchitis, not specified as acute or chronic (principal); R07.89 Other chest pain; Z20.822 Contact with and (suspected) exposure to COVID-19
CPT/HCPCS: 36415; 71046; 80048; 84484; 85025; 87635; 93005; 99283; 99284

== ENCOUNTER 2023-04-30 11:25 | Emergency (ER) | payer OTHER, SELFPAY ==
--- NOTE | ~2023-04-30 | XR_ITS ---
EXAMINATION: XR ELBOW, LEFT CLINICAL INFORMATION: Pain and swelling COMPARISON: None available. TECHNIQUE: AP, lateral, and oblique views of the left elbow. FINDINGS: Triceps tendon enthesopathy. No acute fracture or dislocation. No elbow effusion. Joint spaces are maintained. Marked soft tissue swelling dorsal to the elbow. XR/XR elbow LT min 3V IMPRESSION: 1. Triceps tendon enthesopathy with marked soft tissue swelling dorsal to the elbow, which could reflect olecranon bursitis in the appropriate clinical setting.
--- NOTE | 2023-04-30 11:27 | ED.GENADULT ---
HPI - General Adult General Chief complaint: Extremity Injury, Upper Stated complaint: swollen elbow Time Seen by Provider: 04/30/23 11:48 Source: patient Mode of arrival: ambulatory Limitations: no limitations History of Present Illness HPI narrative: 47 year old male with a history of arthritis and diabetes, [id number] here with left elbow pain and swelling for 2 days. Started working out recently at the gym but cannot recall specific injury No redness, fevers, chills. Related Data Home Medications Medication Instructions Recorded Confirmed multivitamin (Daily Multi-Vitamin 1 tab PO DAILY 04/06/23 04/30/23 tablet) Previous Rx's Medication Instructions Recorded valsartan 80 mg tablet 80 mg PO DAILY #90 tabs 09/25/22 glipizide 5 mg tablet 5 mg PO DAILY #90 tabs 11/03/22 pantoprazole 40 mg tablet,delayed 40 mg PO DAILY 30 days #30 tabs 12/14/22 release (Protonix) etanercept 50 mg/mL (1 mL) 50 mg subcut QWEEK #4 mL 04/08/23 subcutaneous pen injector (Enbrel [employer]) benzonatate 100 mg capsule 100 mg PO BID PRN cough #14 caps 04/23/23 doxycycline hyclate 100 mg tablet 100 mg PO BID 7 days #14 tabs 04/23/23 naproxen 500 mg tablet 500 mg PO BID PRN pain #30 tabs 04/30/23 Allergies Allergy/AdvReac Type Severity Reaction Status Date / Time lisinopril Allergy Mild Closed Verified 04/30/23 11:30 throat sulfamethoxazole Allergy Mild Rash Verified 04/30/23 11:30 [From Bactrim] trimethoprim [From Bactrim] Allergy Mild Rash Verified 04/30/23 11:30 fish derived [fish] Allergy Unknown Rash, Verified 04/30/23 11:30 Redness morphine [MORPHINE] Allergy Unknown Nausea and Verified 04/30/23 11:30 Vomiting Sulfa (Sulfonamide Allergy Unknown rash Verified 04/30/23 11:30 Antibiotics) Fish Containing Products AdvReac Unknown Worsens Verified 04/30/23 11:30 Gout symptoms Review of Systems Review of Systems: Yes all other systems are reviewed and are negative Constitutional: Constitutional: Reports no additional constitutional complaints, Denies body ache(s), Denies chills, Denies fever(s), Denies headache(s) and Denies weakness Eyes: Eyes: Reports no additional eye complaints and Denies change in vision ENT: Reports system reviewed and no additional complaints, except as documented, Denies dizziness, Denies headache(s), Denies nasal congestion, Denies nasal discharge and Denies neck pain Cardiovascular: Cardiovascular: Reports no additional cardiovascular complaints, Denies chest pain, Denies leg edema and Denies dyspnea Respiratory: Respiratory: Reports no additional respiratory complaints, Denies cough and Denies dyspnea Gastrointestinal: Gastrointestinal: Reports no additional gastrointestinal complaints, Denies abdominal pain, Denies diarrhea, Denies nausea and Denies vomiting Genitourinary: Genitourinary: Denies urinary incontinence Musculoskeletal: Musculoskeletal: Reports no additional musculoskeletal complaints, Denies back pain, Reports arthralgias, Reports joint swelling, Denies neck pain, Denies numbness and Denies tingling Integumentary/Breasts: Skin/Breast: Reports system reviewed and no additional complaints, except as docu and Denies rash Neurologic: Reports system reviewed and no additional complaints, except as documented, Denies dizziness, Denies headache(s), Denies numbness, Denies tingling and Denies weakness [facility] Past Medical History Attestation statement: The following information was validated with the patient. Source: old records reviewed and nursing notes reviewed Medical History Avascular necrosis of bone of hip Chronic GERD Chronic GERD Cough COVID-19 Diabetes Diabetes mellitus Diabetes mellitus with coincident hypertension Dysuria History of cardiac murmur Obesity Sinus infection Surgical History H/O colonoscopy H/O total hip arthroplasty H/O wrist surgery History of esophagogastroduodenoscopy (EGD) History of surgery on right wrist History of tonsillectomy History of umbilical hernia repair History of wisdom tooth extraction Family History Family History Father No problems noted. Mother Colon cancer Diabetes Hypertension Family/Other Diabetes Hypertension Social History Social History Housing: Apartment Alcohol intake: never Patient Tobacco Use Status: Never used Tobacco e-Cigarette/Vaping Use: Never Used Second Hand Smoke Exposure: Yes Advance Directives: No Advance Directives Information Provided: No service: No Current occupational status: disabled Current occupational exposures/hazards: No Cognitive needs: No Hearing needs: No Vision needs: Yes Physical Exam ED Vital Signs: Vital Signs - 24 hr 04/30/23 11:28 Temperature 97.0 F Pulse Rate 56 Respiratory Rate 20 Blood Pressure 180/56 H Pulse Oximetry 98 Oxygen Delivery Method Room Air BMI result Body Mass Index 30.3 Const General: cooperative, healthy appearing, comfortable and no acute distress Orientation/consciousness: patient oriented x3 Limitations: no limitations HENMT Head: Yes normal to inspection Ears: hearing grossly normal bilaterally Eyes General: appearance normal, both eyes and all related structures Neck Neck: Yes normal visual inspection Chest Chest palpation & inspection: normal inspection of the chest Resp Effort & Inspection: normal respiratory effort Skin General skin exam: no rashes or lesions noted Neuro General: patient oriented x3 and moves all extremities Cognition (Neuro): normal cognition Gait exam (Neuro): Normal gait present Extrem Other: Limited flexion of left elbow d/t pain/swelling. no diff with extension FROM of distal/proximal joints Sensaton intact distally. Pulses intact distally Swelling/pain to palpation over lateral elbow and bursa Course Course Course Narrative: This is an RME: Additional HPI, ROS, PE not included below will be deferred to primary provider.Patient with chief complaint of left elbow pain for 2 days, cannot bend elbow secondary to pain. States was lifting weights when pain began. Pain 10/10. Was seen at urgent care today and was told to come to ED for XR and evaluation. PE cant bend secondary to pain Reevaluation(s) Reevaluation #1: 1245-X-ray shows olecreanon bursitis. Will discharge with NSAID. Recommend supportive care. Reviewed worrisome signs and symptoms of when to return to the emergency room. Comfortable plan for discharge home. Medications Administered Discontinued Medications Generic Name Dose Route Start Last Admin Trade Name Freq PRN Reason Stop Dose Admin Ketorolac Tromethamine 30 mg 04/30/23 12:06 04/30/23 12:13 Ketorolac Tromethamine 30 Mg/Ml Vial IM 04/30/23 12:07 30 mg ONCE ONE Administration Medical Decision Making Medical Decision Making MDM Narrative: 47 yo male right hand dominant here with left elbow swelling/pain x 2 days Lateral swelling/TTP over olecreanon Will check x-rays Differential Diagnosis Differential Diagnoses: The differential diagnosis associated with the presentation includes olecreanon bursitis, Low concern for septic arthritis, epicondylitis, fracture, gout Independent Interpretation I performed an independent interpretation of an: Plain X-Ray Interpretation: I independetely reviewed the x-ray and agree with radiologist's report Radiology Impression Discussion of test interpretation with radiology: I have reviewed the radiologist's reading. Radiologist Impression: [address] [address] XRay Report Signed Patient: Angel Kuhn MR#: [id number] : 1975 Acct:[id number] Age/Sex: 47 / M ADM Date: 04/30/23 Loc: .ED Attending Dr: Ordering Physician: Erin Flynn Date of Service: 04/30/23 Procedure(s): XR elbow LT min 3V Accession Number(s): [id number] cc: Erin Flynn~ EXAMINATION: XR ELBOW, LEFT CLINICAL INFORMATION: Pain and swelling? COMPARISON: None available.? TECHNIQUE: AP, lateral, and oblique views of the left elbow. FINDINGS: Triceps tendon enthesopathy. No acute fracture or dislocation. No elbow effusion. Joint spaces are maintained. Marked soft tissue swelling dorsal to the elbow.? XR/XR elbow LT min 3V IMPRESSION: 1.? Triceps tendon enthesopathy with marked soft tissue swelling dorsal to the elbow, which could reflect olecranon bursitis in the appropriate clinical setting. Discharge Plan Discharge Clinical Impression: Olecranon bursitis Patient Disposition: Home, Self-Care Instructions: Elbow Bursitis (ED) Additional Instructions: Rest the extremity Apply ice to the area Gentle stretching Take the anti-inflammatory medication for the next few days Follow-up with primary care doctor for any continued symptoms Prescriptions: New naproxen 500 mg tablet 500 mg PO BID PRN (Reason: pain) Qty: 30 0RF No Action valsartan 80 mg tablet 80 mg PO DAILY Qty: 90 1RF glipizide 5 mg tablet 5 mg PO DAILY Qty: 90 8RF Enbrel [employer] 50 mg/mL (1 mL) pen injector 50 mg subcut QWEEK Qty: 4 2RF doxycycline hyclate 100 mg tablet 100 mg PO BID 7 Days Qty: 14 0RF benzonatate 100 mg capsule 100 mg PO BID PRN (Reason: cough) Qty: 14 0RF pantoprazole [Protonix] 40 mg tablet,delayed release (DR/EC) 40 mg PO DAILY 30 Days Qty: 30 6RF multivitamin [Daily Multi-Vitamin] Tablet 1 tab PO DAILY Referrals: Da Eckert MD [Primary Care Provider] - 1 week
[2023-04-30 11:28] VITALS: BP 180/56; PULSE 56; RESP 20; TEMP 36.1; O2SAT 98; BMI 30.3
--- NOTE | 2023-04-30 11:50 | PC.NURSE ---
Pt reports he went to an Urgent Care however they do not do Xrays, Left Elbow swollen, warm to touch. reporting 10/10 pain. Pt denies taking any medications/Ice prior to coming in.
[2023-04-30] MEDS: Ketorolac Tromethamine 30 MG/ML VIAL IM (12:13)
== END 2023-04-30 12:56 | disposition home or self-care (01) ==
PROVIDERS: Emergency Provider Emergency Medicine; PCP Internal Medicine
DX: M70.22 Olecranon bursitis, left elbow (principal); M25.522 Pain in left elbow; Y93.B9 Activity, other involving muscle strengthening exercises
CPT/HCPCS: 73080; 96372; 99284; J1885

== ENCOUNTER 2023-05-11 08:45 | Outpatient (REF) | payer OTHER, SELFPAY ==
[2023-05-11 08:53] LABS: MANUAL DIFF FLAG NO
[2023-05-11 09:20] LABS: Basophils Percent Auto 0.4 % (0-2); Eosinophils Absolute Auto 0.1 X10*3/uL (0.0-0.4); Eosinophils Percent Auto 1.7 % (0-4); Hematocrit 42.6 % (42.0-52.0); Hemoglobin 14.4 g/dl (14.0-18.0); Lymphocytes Percent Auto 39.8 % (20-40); Mean Corpuscular HGB Conc 33.8 g/dl (31.0-36.0); Mean Corpuscular Hemoglobin 27.7 pg (27.0-33.0); Mean Corpuscular Volume 82.1 fL (80.0-98.0); Mean Platelet Volume 10.6 fL (9.4-12.4); Monocytes Absolute Auto 0.5 X10*3/uL (0.1-1.2); Monocytes Percent Auto 6.4 % (2-11); Neutrophils Absolute Auto 3.9 x10*3/uL (2.0-8.3); Neutrophils Percent Auto 51.7 % (45-73); Platelet Count 274 X10*3/uL (160-400); Red Blood Count 5.19 X10*6/uL (4.60-5.80); Red Cell Distribution Width 13.4 % (11.0-16.0); White Blood Count 7.6 X10*3/uL (4.8-10.8)
[2023-05-11 09:42] LABS: Estimated Average Glucose 146 mg/dL; Hemoglobin A1c % 6.7 %
[2023-05-11 09:55] LABS: Alanine Aminotransferase 14 U/L (0-40); Albumin Level 4.2 g/dL (3.5-5.0); Alkaline Phosphatase 66 U/L (39-117); Anion Gap 9 (12-20); Aspartate Amino Transferase 13 U/L (5-37); Bilirubin Total 0.6 mg/dL (0.0-1.0); Blood Urea Nitrogen 15 mg/dL (9-16); Calcium 9.8 mg/dL (8.4-10.2); Carbon Dioxide 30 mmol/L (22-29); Chloride 103 mmol/L (96-108); Cholesterol 230 mg/dL; Estimated Glomerular Filt Rate > 60; Glucose Fasting 131 mg/dL (60-99); HDL Cholesterol 39 mg/dL; LDL Cholesterol Calculated 159 mg/dl; Sodium 138 mmol/L (135-145); Total Protein 7.4 g/dL (6.5-8.0); Triglycerides 163 mg/dL
[2023-05-11 10:11] LABS: Thyroid Stimulating Hormone 1.66 uIU/mL (0.32-4.0)
[2023-05-11 11:47] LABS: Creatinine Urine 167.76 mg/dL; Microalbum/Creatinine Ratio Ur 5.9 ug/mg cr
== END 2023-05-11 08:46 | disposition home or self-care (01) ==
LOC: HO.LAB 08:45
PROVIDERS: PCP Internal Medicine; Visit Provider Internal Medicine
DX: N28.9 Disorder of kidney and ureter, unspecified (principal); E03.9 Hypothyroidism, unspecified; D64.9 Anemia, unspecified; E66.01 Morbid (severe) obesity due to excess calories; E78.5 Hyperlipidemia, unspecified; E11.65 Type 2 diabetes mellitus with hyperglycemia
CPT/HCPCS: 36415; 80053; 80061; 82043; 83036; 84443; 85025

== ENCOUNTER 2023-07-14 12:12 | Emergency (ER) | payer OTHER, SELFPAY ==
--- NOTE | ~2023-07-14 | XR_ITS ---
EXAMINATION: XR HIP, LEFT CLINICAL INFORMATION: Pain COMPARISON: Left hip radiograph from 01/12/2019 TECHNIQUE: Two views of the left hip. FINDINGS: Status post remote left hip arthroplasty with cerclage wire along the intertrochanteric region. Orthopedic hardware is grossly intact. No acute visible fracture or dislocation. Degenerative changes of the right femoral acetabular joint with particular osteophytes along the greater trochanter along its superior margin and lateral margins. Joint spaces and alignment are otherwise maintained. Bowel gas is unremarkable. Hernia mesh along the lower abdomen. Soft tissues are unremarkable. XR/XR hip LT w PEL1V IMPRESSION: 1. Status post remote left hip arthroplasty with cerclage wire along the intertrochanteric region. Orthopedic hardware is grossly intact. 2. No acute visible fracture or dislocation. 3. Degenerative changes of the right femoral acetabular joint.
[2023-07-14 12:22] VITALS: BP 142/76; PULSE 68; RESP 16; TEMP 37.1; O2SAT 97; BMI 29.4
--- NOTE | 2023-07-14 12:48 | ED_ITS ---
HPI - General Adult General Chief complaint: Extremity Problem Stated complaint: hip pain Time Seen by Provider: 07/14/23 12:48 Source: patient Limitations: no limitations History of Present Illness HPI narrative: Patient presents complaining of left hip pain times 24 hours. Patient states he is very active doing a lot of work around the house yesterday and was unsure if he just pulled a muscle. Patient has a history of a total hip replacement approximately 8 years prior. Patient also has a history of diabetes. Patient has no other complaints at this time denies chest pain fever chills. Symptoms are [id number] pain 6 out 10 increases with range of motion. Related Data Home Medications Medication Instructions Recorded Confirmed multivitamin (Daily Multi-Vitamin 1 tab PO DAILY 04/06/23 05/14/23 tablet) Previous Rx's Medication Instructions Recorded glipizide 5 mg tablet 5 mg PO DAILY #90 tabs 11/03/22 etanercept 50 mg/mL (1 mL) 50 mg subcut QWEEK #4 mL 04/08/23 subcutaneous pen injector (Enbrel SureClick) naproxen 500 mg tablet 500 mg PO BID PRN pain #30 tabs 04/30/23 pantoprazole 40 mg tablet,delayed 40 mg PO DAILY 30 days #30 tabs 05/09/23 release (Protonix) valsartan 80 mg tablet 80 mg PO DAILY #90 tabs 05/14/23 blood sugar diagnostic (OneTouch #100 ea 05/25/23 Ultra Test strips) blood-glucose meter (Easy-Touch #1 ea 05/25/23 Blood Glucose Meter) blood-glucose meter (OneTouch #1 ea 05/25/23 Ultra2 Meter) lancets 30 gauge (OneTouch #100 ea 05/25/23 UltraSoft 2 Lancet) ibuprofen 600 mg tablet 600 mg PO TID PRN pain #14 tabs 07/14/23 methocarbamol 750 mg tablet 750 mg PO Q8H PRN muscle spasm #14 07/14/23 tabs Allergies Allergy/AdvReac Type Severity Reaction Status Date / Time lisinopril Allergy Mild Closed Verified 05/14/23 11:51 throat sulfamethoxazole Allergy Mild Rash Verified 05/14/23 11:51 [From Bactrim] trimethoprim [From Bactrim] Allergy Mild Rash Verified 05/14/23 11:51 fish derived [fish] Allergy Unknown Rash, Verified 05/14/23 11:51 Redness morphine [MORPHINE] Allergy Unknown Nausea and Verified 05/14/23 11:51 Vomiting Sulfa (Sulfonamide Allergy Unknown rash Verified 05/14/23 11:51 Antibiotics) Fish Containing Products AdvReac Unknown Worsens Verified 05/14/23 11:51 Gout symptoms Review of Systems Review of Systems: General: No fever, no chills Cardiovascular: No chest pain Respiratory: No dyspnea Muscle skeletal: Left hip pain GI: no nausea vomiting, no diarrhea Skin: No rash PMFSH Past Medical History Medical History Avascular necrosis of bone of hip Chronic GERD Chronic GERD Cough COVID-19 Diabetes Diabetes mellitus Diabetes mellitus with coincident hypertension Dysuria History of cardiac murmur Obesity Sinus infection Surgical History H/O colonoscopy H/O total hip arthroplasty H/O wrist surgery History of esophagogastroduodenoscopy (EGD) History of surgery on right wrist History of tonsillectomy History of umbilical hernia repair History of wisdom tooth extraction Family History Family History Father No problems noted. Mother Colon cancer Diabetes Hypertension Family/Other Diabetes Hypertension Social History Social History Housing: Apartment Alcohol intake: never Patient Tobacco Use Status: Never used Tobacco e-Cigarette/Vaping Use: Never Used Second Hand Smoke Exposure: Yes Advance Directives: No service: No Current occupational status: disabled Current occupational exposures/hazards: No Cognitive needs: No Hearing needs: No Vision needs: Yes Physical Exam ED Vital Signs: Vital Signs - 24 hr 07/14/23 12:22 Temperature 98.7 F Pulse Rate 68 Respiratory Rate 16 Blood Pressure 142/76 H Pulse Oximetry 97 Oxygen Delivery Method Room Air BMI result Body Mass Index 29.4 General appearance: Awake, alert, cooperative, in no acute distress Skin: Warm, dry, no rash Eyes: PERRL, EOMI, no icterus ENT: Oropharynx normal, uvula midline Neck: Soft supple full range of motion Extremities: Pelvis is stable lateral left hip is slightly tender full range of motion Neuro: Alert oriented x3, no focal deficit Psych: Normal affect Course Course Course Narrative: Differential diagnosis: Left hip pain Arthritis Muscle strain Muscle spasm Left hip dislocation less likely as patient is ambulatory 48-year-old male with a history of total hip replacement proximally years prior complaining of left hip pain after doing a lot a labor around his house yesterday. Left hip x-ray and pelvis is pending at this time low suspicion for fracture dislocation. Symptoms seem more consistent with muscle skeletal strain of the left hip and or arthritis. 13:49 left hip x-rays negative for acute injury some arthritic changes are noted Medical Decision Making Radiology Impression Discussion of test interpretation with radiology: I have reviewed the radiologist's reading. Radiologist Impression: [address], [place] [id number] ReportSigned Patient: Angel KuhnMR#: [id number]: [id number]:[id number]/Sex: 48 / MADM Date: 07/14/23Loc: [facility].EDAttending Dr: Ordering Physician: Farhad Mooney Date of Service: 07/14/23 Procedure(s): XR hip LT w PEL1V Accession Number(s): [id number] cc: Farhad Mooney ~ EXAMINATION: XR HIP, LEFT CLINICAL INFORMATION: Pain COMPARISON: Left hip radiograph from 01/12/2019 TECHNIQUE: Two views of the left hip. FINDINGS: Status post remote left hip arthroplasty with cerclage wire along the intertrochanteric region. Orthopedic hardware is grossly intact. No acute visible fracture or dislocation. Degenerative changes of the right femoral acetabular joint with particular osteophytes along the greater trochanter along its superior margin and lateral margins. Joint spaces and alignment are otherwise maintained. Bowel gas is unremarkable. Hernia mesh along the lower abdomen. Soft tissues are unremarkable. XR/XR hip LT w PEL1V IMPRESSION: 1. Status post remote left hip arthroplasty with cerclage wire along the intertrochanteric region. Orthopedic hardware is grossly intact. 2. No acute visible fracture or dislocation. 3. Degenerative changes of the right femoral acetabular joint. Dictated By:Evan Brito MDSigned By:<Electronically signed by Evan Brito MD in [place]>07/14/23 1333 DD/ 1300TD/TT: [employer] Marker: Discharge Plan Discharge Clinical Impression: Right hip pain Patient Disposition: Home, Self-Care Instructions: Hip Pain (ED) Additional Instructions: X-ray of your right hip shows no acute fracture or dislocation Degenerative changes are seen in the right hip this may be contributing to some of her discomfort Symptoms could be also consistent with muscle skeletal strain Medication as directed Prescriptions: New ibuprofen 600 mg tablet 600 mg PO TID PRN (Reason: pain) Qty: 14 0RF methocarbamol 750 mg tablet 750 mg PO Q8H PRN (Reason: muscle spasm) Qty: 14 0RF No Action glipizide 5 mg tablet 5 mg PO DAILY Qty: 90 8RF Enbrel SureClick 50 mg/mL (1 mL) pen injector 50 mg subcut QWEEK Qty: 4 2RF pantoprazole [Protonix] 40 mg tablet,delayed release (DR/EC) 40 mg PO DAILY 30 Days Qty: 30 6RF (DME) blood-glucose meter [Easy-Touch Blood Glucose Meter] Misc See Rx Instructions .Route Qty: 1 0RF Rx Instructions: As directed (DME) blood-glucose meter [OneTouch Ultra2 Meter] Misc See Rx Instructions .Route Qty: 1 0RF Rx Instructions: test once daily (DME) OneTouch Ultra Test Strip See Rx Instructions .Route Qty: 100 8RF Rx Instructions: test once daily (DME) lancets [OneTouch UltraSoft 2 Lancet] 30 gauge misc See Rx Instructions .Route Qty: 100 8RF Rx Instructions: test once daily naproxen 500 mg tablet 500 mg PO BID PRN (Reason: pain) Qty: 30 0RF valsartan 80 mg tablet 80 mg PO DAILY Qty: 90 1RF multivitamin [Daily Multi-Vitamin] Tablet 1 tab PO DAILY
== END 2023-07-14 13:55 | disposition home or self-care (01) ==
PROVIDERS: Emergency Provider Emergency Medicine; PCP Internal Medicine
DX: M25.552 Pain in left hip (principal)
CPT/HCPCS: 73502; 99282; 99283

== ENCOUNTER 2023-08-01 11:45 | Emergency (ER) | payer OTHER, SELFPAY ==
--- NOTE | ~2023-08-01 | XR_ITS ---
EXAMINATION: CHEST 1 VIEW CLINICAL INFORMATION: Chest pain. COMPARISON: 04/23/2023. TECHNIQUE: 1 view of the chest. FINDINGS: Devices: None. Mediastinum: Cardiomediastinal silhouette within normal limits. Pulmonary vascularity is normal. Lungs: Normal expansion. No focal consolidation. Pleura: No pleural effusion or pneumothorax. Other: Unremarkable. XR/XR chest 1V IMPRESSION: No acute cardiopulmonary findings.
--- NOTE | 2023-08-01 11:46 | ECG_ITS ---
Test Reason : chest pain Blood Pressure : / mmHG Vent. Rate : 062 BPM Atrial Rate : 062 BPM P-R Int : 148 ms QRS Dur : 112 ms QT Int : 398 ms P-R-T Axes : 061 -14 012 degrees QTc Int : 403 ms Normal sinus rhythm Moderate voltage criteria for LVH, may be normal variant ( R in aVL , Bar product ) Borderline ECG When compared with ECG of 23-APR-2023 14:58, Incomplete right bundle branch block is no longer Present Referred By: Minal Louise Electronically Signed By:MARTHA PHAM
[2023-08-01 11:55] VITALS: BP 145/77; PULSE 62; RESP 18; TEMP 36.1; O2SAT 97; BMI 30.3
--- NOTE | 2023-08-01 11:55 | ED.CHESTPAIN ---
HPI - Chest Pain General Chief Complaint: Chest Pain Stated Complaint: Chest pain 3 days Time Seen by Provider: 08/01/23 17:37 Source: patient Mode of arrival: ambulatory Limitations: no limitations History of Present Illness HPI narrative: 48 y/o GERD, DM, HTN, constipation, obesity, BPH, gout who presents to the ER for evaluation of constant central chest pains that started 3 days ago after eating. Pain is in the center of the chest and radiates to the left upper chest. Hx GERD and takes PPI and thinks this is GERD but wants to be sure. No SOB, diaphoresis, nausea, vomiting. No back pain. He admits to eating spicy foods. He takes a PPI every morning. The pain is similar to when he has GERD exacerbations. Last saw GI in November and has an appointment coming up this week. MD complaint: chest pain Onset (ago): day(s) (3) Timing of current episode: constant Prior episodes: Yes Onset: after eating Pain location: substernal and epigastric Severity: severe Quality: sharp Relieving factors: nothing Exacerbating factors: nothing Treatment prior to arrival: none Risk Factors Coronary artery disease risk factors: diabetes and hypertension Thoracic aortic dissection risk factors: none Related Data Home Medications Medication Instructions Recorded Confirmed multivitamin (Daily Multi-Vitamin 1 tab PO DAILY 04/06/23 05/14/23 tablet) Previous Rx's Medication Instructions Recorded glipizide 5 mg tablet 5 mg PO DAILY #90 tabs 11/03/22 etanercept 50 mg/mL (1 mL) 50 mg subcut QWEEK #4 mL 04/08/23 subcutaneous pen injector (Enbrel SureClick) naproxen 500 mg tablet 500 mg PO BID PRN pain #30 tabs 04/30/23 valsartan 80 mg tablet 80 mg PO DAILY #90 tabs 05/14/23 blood sugar diagnostic (OneTouch #100 ea 05/25/23 Ultra Test strips) blood-glucose meter (Easy-Touch #1 ea 05/25/23 Blood Glucose Meter) blood-glucose meter (OneTouch #1 ea 05/25/23 Ultra2 Meter) lancets 30 gauge (OneTouch #100 ea 05/25/23 UltraSoft 2 Lancet) ibuprofen 600 mg tablet 600 mg PO TID PRN pain #14 tabs 07/14/23 methocarbamol 750 mg tablet 750 mg PO Q8H PRN muscle spasm #14 07/14/23 tabs pantoprazole 40 mg tablet,delayed 40 mg PO DAILY 30 days #30 tabs 07/22/23 release (Protonix) sucralfate 1 gram tablet (Carafate) 1 g PO .before meals #60 tabs 08/01/23 Allergies Allergy/AdvReac Type Severity Reaction Status Date / Time lisinopril Allergy Mild Closed Verified 08/01/23 11:57 throat sulfamethoxazole Allergy Mild Rash Verified 08/01/23 11:57 [From Bactrim] trimethoprim [From Bactrim] Allergy Mild Rash Verified 08/01/23 11:57 fish derived [fish] Allergy Unknown Rash, Verified 08/01/23 11:57 Redness morphine [MORPHINE] Allergy Unknown Nausea and Verified 08/01/23 11:57 Vomiting Sulfa (Sulfonamide Allergy Unknown rash Verified 08/01/23 11:57 Antibiotics) Fish Containing Products AdvReac Unknown Worsens Verified 08/01/23 11:57 Gout symptoms Review of Systems Review of Systems: Yes all other systems are reviewed and are negative [facility] Past Medical History Medical History Avascular necrosis of bone of hip Chronic GERD Chronic GERD Cough COVID-19 Diabetes Diabetes mellitus Diabetes mellitus with coincident hypertension Dysuria History of cardiac murmur Obesity Sinus infection Surgical History H/O colonoscopy H/O total hip arthroplasty H/O wrist surgery History of esophagogastroduodenoscopy (EGD) History of surgery on right wrist History of tonsillectomy History of umbilical hernia repair History of wisdom tooth extraction Family History Family History Father No problems noted. Mother Colon cancer Diabetes Hypertension Family/Other Diabetes Hypertension Social History Social History Housing: Apartment Alcohol intake: never Patient Tobacco Use Status: Never used Tobacco e-Cigarette/Vaping Use: Never Used Second Hand Smoke Exposure: Yes Advance Directives: No Advance Directives Information Provided: No service: No Current occupational status: disabled Current occupational exposures/hazards: No Cognitive needs: No Hearing needs: No Vision needs: Yes Physical Exam Vital Signs: Vital Signs: Last Vital Signs Temp 98.1 F 08/01/23 17:33 Pulse 50 08/01/23 17:33 Resp 18 08/01/23 17:33 BP 145/84 H 08/01/23 17:33 Pulse Ox 98 08/01/23 17:33 O2 Del Method Room Air 08/01/23 17:33 BMI result Body Mass Index 30.3 Appearance: Alert. Oriented X3. No acute distress. Head: normocephalic, atraumatic. Eyes: Pupils equal, round and reactive to light. ENT: Pharynx normal. No tonsillar swelling or exudate. Neck: Normal inspection. Neck supple. CVS: Normal heart rate and rhythm. Pulses normal. Respiratory: No respiratory distress. Breath sounds normal. Abdomen: Soft and nontender. +BS x4 Skin: Skin warm and dry. Normal skin color. Normal skin turgor. No rashes. Extremities: No lower extremity edema. No joint swelling. Neuro/psych: Oriented X 3. No motor deficit. No sensory deficit. CN II-XII intact. Normal speech and cognition. Medical Decision Making Medical Decision Making [facility] Narrative: 48 y/o GERD, DM, HTN, constipation, obesity, BPH, gout who presents to the ER for evaluation of constant central chest pains that started 3 days ago after eating. Also reports pain in the left upper arm but states it does not come from the chest or stomach. No left shoulder pain, jaw pain, neck pain or back pain. VSS in triage. EKG unchanged from prior. troponin flat x2. CXR clear. Clinical presentation is most c/w GERD exacerbation. Differential Diagnosis Differential Diagnoses: The differential diagnosis associated with the presentation includes Admission/Observation Consideration of admission/observation: Escalation of care including admission/observation considered Lab Data [facility] Lab Attestation statement: I reviewed the patient's lab results. 08/01/23 12:07 08/01/23 12:07 Labs: Lab Results 08/01/23 08/01/23 Range/Units 12:07 15:35 WBC 6.1 (4.8-10.8) X10*3/uL RBC 5.39 (4.60-5.80) X10*6/uL Hgb 15.0 (14.0-18.0) g/dl Hct 43.1 (42.0-52.0) % MCV 80.0 (80.0-98.0) fL MCH 27.8 (27.0-33.0) pg MCHC 34.8 (31.0-36.0) g/dl RDW 13.0 (11.0-16.0) % Plt Count 280 (160-400) X10*3/uL MPV 10.4 (9.4-12.4) fL Immature Gran % (Auto) 0.2 (0.0-0.4) % Neut % (Auto) 51.9 (45-73) % Lymph % (Auto) 41.4 H (20-40) % Murray % (Auto) 4.4 (2-11) % Eos % (Auto) 1.6 (0-4) % Baso % (Auto) 0.5 (0-2) % Lymph # (Auto) 2.5 (1.2-4.9) X10*3/uL Murray # (Auto) 0.3 (0.1-1.2) X10*3/uL Eos # (Auto) 0.1 (0.0-0.4) X10*3/uL Baso # (Auto) 0.0 (0.0-0.2) X10*3/uL Abs Immat Gran (auto) 0.01 (0.00-0.03) X10*3/uL Absolute Neuts (auto) 3.2 (2.0-8.3) x10*3/uL Absolute Nucleated RBC 0.000 (0.0-0.012) X10*3/uL Nucleated RBC % (auto) 0.0 (0.0-0.2) /100WBC Sodium 139 (135-145) mmol/L Potassium 3.6 (3.3-5.1) mmol/L Chloride 105 (96-108) mmol/L Carbon Dioxide 27 (22-29) mmol/L Anion Gap 11 L (12-20) BUN 14 (9-16) mg/dL Creatinine 1.08 (0.5-1.4) mg/dL Estim Creat Clear Calc 92.1 Estimated GFR > 60 Random Glucose 202 H (60-115) mg/dL Calcium 9.8 (8.4-10.2) mg/dL Magnesium 1.7 (1.6-2.6) mg/dL Total Bilirubin 0.5 (0.0-1.0) mg/dL Direct Bilirubin 0.2 (0.0-0.5) mg/dL AST 18 (5-37) U/L ALT 14 (0-40) U/L Alkaline Phosphatase 59 (39-117) U/L Troponin I High Sens 16.8 18.8 (<3.5-35.0) ng/L Total Protein 7.4 (6.5-8.0) g/dL Albumin 4.3 (3.5-5.0) g/dL Independent Interpretation I performed an independent interpretation of an: EKG and Plain X-Ray Interpretation: cxr with clear lungs, no PNA Radiology Impression Discussion of test interpretation with radiology: I have reviewed the radiologist's reading. Radiologist Impression: EXAMINATION: CHEST 1 VIEW CLINICAL INFORMATION: Chest pain. COMPARISON: 04/23/2023. TECHNIQUE: 1 view of the chest. FINDINGS: Devices: None. Mediastinum: Cardiomediastinal silhouette within normal limits. Pulmonary vascularity is normal. Lungs: Normal expansion. No focal consolidation. Pleura: No pleural effusion or pneumothorax. Other: Unremarkable. XR/XR chest 1V IMPRESSION: No acute cardiopulmonary findings. External Record Review External record reviewed: Office record, Outpatient record and Prior outpatient labs Prescription Management I considered prescription management with: Pain Medication and Other (antacids) Chronic Conditions Patient?s care impacted by: Diabetes, Hypertension and Other (GERD) Critical Care Time Critical Care Time Critical Care Time: No Discharge Plan Discharge Clinical Impression: Chronic GERD Patient Disposition: Home, Self-Care Instructions: Diet for Stomach Ulcers and Gastritis (ED), Gastroesophageal Reflux Disease (DC) Additional Instructions: Your lab workup was unremarkable Your EKG was the same from prior Your pain is most likely due to your GERD Take the prescribed medication before meals Avoid spicy and acidic foods, sodas Follow up with GI If you develop new or worsening symptoms call 911 or come back to the ER for further evaluation. Prescriptions: New sucralfate [Carafate] 1 gram tablet 1 g PO .before meals Qty: 60 0RF No Action glipizide 5 mg tablet 5 mg PO DAILY Qty: 90 8RF Enbrel SureClick 50 mg/mL (1 mL) pen injector 50 mg subcut QWEEK Qty: 4 2RF (DME) blood-glucose meter [Easy-Touch Blood Glucose Meter] Misc See Rx Instructions .Route Qty: 1 0RF Rx Instructions: As directed ([facility] blood-glucose meter [OneTouch Ultra2 Meter] Misc See Rx Instructions .Route Qty: 1 0RF Rx Instructions: test once daily (DME) OneTouch Ultra Test Strip See Rx Instructions .Route Qty: 100 8RF Rx Instructions: test once daily (DME) lancets [OneTouch UltraSoft 2 Lancet] 30 gauge misc See Rx Instructions .Route Qty: 100 8RF Rx Instructions: test once daily pantoprazole [Protonix] 40 mg tablet,delayed release (DR/EC) 40 mg PO DAILY 30 Days Qty: 30 6RF naproxen 500 mg tablet 500 mg PO BID PRN (Reason: pain) Qty: 30 0RF ibuprofen 600 mg tablet 600 mg PO TID PRN (Reason: pain) Qty: 14 0RF methocarbamol 750 mg tablet 750 mg PO Q8H PRN (Reason: muscle spasm) Qty: 14 0RF valsartan 80 mg tablet 80 mg PO DAILY Qty: 90 1RF multivitamin [Daily Multi-Vitamin] Tablet 1 tab PO DAILY Interventions: ED Discharge Assessment Last Done: 08/01/23 17:37 Discharge Date/Time: 08/01/23 17:39
[2023-08-01 12:12] LABS: MANUAL DIFF FLAG NO
[2023-08-01 12:14] LABS: Basophils Percent Auto 0.5 % (0-2); Eosinophils Absolute Auto 0.1 X10*3/uL (0.0-0.4); Eosinophils Percent Auto 1.6 % (0-4); Hematocrit 43.1 % (42.0-52.0); Imm Gran Abs Auto 0.01 X10*3/uL (0.00-0.03); Imm Gran Pct Auto 0.2 % (0.0-0.4); Lymphocytes Absolute Auto 2.5 X10*3/uL (1.2-4.9); Lymphocytes Percent Auto 41.4 % (20-40); Mean Corpuscular HGB Conc 34.8 g/dl (31.0-36.0); Mean Corpuscular Hemoglobin 27.8 pg (27.0-33.0); Mean Platelet Volume 10.4 fL (9.4-12.4); Monocytes Absolute Auto 0.3 X10*3/uL (0.1-1.2); Monocytes Percent Auto 4.4 % (2-11); Neutrophils Absolute Auto 3.2 x10*3/uL (2.0-8.3); Neutrophils Percent Auto 51.9 % (45-73); Platelet Count 280 X10*3/uL (160-400); Red Blood Count 5.39 X10*6/uL (4.60-5.80); White Blood Count 6.1 X10*3/uL (4.8-10.8)
[2023-08-01 12:38] LABS: Troponin-I High Sensitivity 16.8 ng/L (<3.5-35.0)
[2023-08-01 12:43] LABS: Alanine Aminotransferase 14 U/L (0-40); Albumin Level 4.3 g/dL (3.5-5.0); Alkaline Phosphatase 59 U/L (39-117); Anion Gap 11 (12-20); Aspartate Amino Transferase 18 U/L (5-37); Bilirubin Direct 0.2 mg/dL (0.0-0.5); Bilirubin Total 0.5 mg/dL (0.0-1.0); Blood Urea Nitrogen 14 mg/dL (9-16); Calcium 9.8 mg/dL (8.4-10.2); Carbon Dioxide 27 mmol/L (22-29); Chloride 105 mmol/L (96-108); Creatinine Clr Calc Pharmacy 92.1; Estimated Glomerular Filt Rate > 60; Glucose Random 202 mg/dL (60-115); Magnesium 1.7 mg/dL (1.6-2.6); Potassium 3.6 mmol/L (3.3-5.1); Sodium 139 mmol/L (135-145); Total Protein 7.4 g/dL (6.5-8.0)
[2023-08-01 16:04] LABS: Troponin-I High Sensitivity 18.8 ng/L (<3.5-35.0)
[2023-08-01 17:33] VITALS: BP 145/84; PULSE 50; RESP 18; TEMP 36.7; O2SAT 98
== END 2023-08-01 17:39 | disposition home or self-care (01) ==
PROVIDERS: Physician Assistant; Emergency Provider Emergency Medicine; PCP Internal Medicine
DX: R07.89 Other chest pain (principal); K21.9 Gastro-esophageal reflux disease without esophagitis; Z79.899 Other long term (current) drug therapy
CPT/HCPCS: 36415; 71045; 80048; 80076; 83735; 84484; 85025; 93005; 99283

== ENCOUNTER 2023-08-16 09:59 | Outpatient (AMB) | payer OTHER, SELFPAY ==
[2023-08-16 10:00] VITALS: BP 140/84; PULSE 85; O2SAT 98; BMI 29.7
--- NOTE | 2023-08-16 10:00 | MHC.PC.OV ---
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 Accompanied by: Self / Same As Patient Allergies lisinopril Allergy (Mild, Verified 08/16/23 10:00) Closed throat sulfamethoxazole [From Bactrim] Allergy (Mild, Verified 08/16/23 10:00) Rash trimethoprim [From Bactrim] Allergy (Mild, Verified 08/16/23 10:00) Rash fish derived [fish] Allergy (Unknown, Verified 08/16/23 10:00) Rash, Redness morphine [MORPHINE] Allergy (Unknown, Verified 08/16/23 10:00) Nausea and Vomiting Sulfa (Sulfonamide Antibiotics) Allergy (Unknown, Verified 08/16/23 10:00) rash Fish Containing Products Adverse Reaction (Unknown, Verified 08/16/23 10:00) Worsens Gout symptoms Medication List - Last Reconciled 08/16/23 by Da Eckert MD blood sugar diagnostic (MIND C.T.I. Ltduch Ultra Test strips) test once daily blood-glucose meter (OneTouch Ultra2 Meter) test once daily blood-glucose meter (Easy-Touch Blood Glucose Meter) As directed etanercept (Enbrel SureClick) 50 mg subcut QWEEK glipizide 5 mg PO DAILY ibuprofen 600 mg PO TID PRN lancets (OneTouch UltraSoft 2 Lancet) test once daily methocarbamol 750 mg PO Q8H PRN multivitamin (Daily Multi-Vitamin tablet) 1 tab PO DAILY naproxen 500 mg PO BID PRN pantoprazole (Protonix) 40 mg PO DAILY 30 days sucralfate (Carafate) 1 g PO .before meals valsartan 80 mg PO DAILY Tobacco use date assessed: 05/13/23 Dental Screening Dental Screen Date: 08/16/23 Did you have a dental visit in the last 12 months?: Yes Did you have a dental problem in the last 6 months where you did not have access to dental care?: No Was dental information given to patient?: Patient has dentist HPI 3M follow up HPI Details DM HTN and RA; complisnat with meds; due for labs PFSH Medical History History of cardiac murmur Avascular necrosis of bone of hip Chronic GERD Sinus infection Obesity Diabetes mellitus with coincident hypertension Diabetes mellitus Dysuria Diabetes COVID-19 Chronic GERD Cough Surgical History History of surgery on right wrist History of esophagogastroduodenoscopy (EGD) H/O colonoscopy H/O total hip arthroplasty H/O wrist surgery History of umbilical hernia repair History of wisdom tooth extraction History of tonsillectomy Family History Father No problems noted. Mother Colon cancer Diabetes Hypertension Family/Other Diabetes Hypertension Social History Housing: Apartment Alcohol intake: never Patient Tobacco Use Status: Never used Tobacco e-Cigarette/Vaping Use: Never Used Second Hand Smoke Exposure: Yes service: No Current occupational status: disabled Current occupational exposures/hazards: No Cognitive needs: No Hearing needs: No Vision needs: Yes Questionnaire PHQ-9 Over the last 2 weeks, how often have you been bothered by any of the following problems? 1. Little interest or pleasure in doing things: several days 2. Feeling down, depressed, or hopeless: several days 3. Trouble falling or staying asleep, or sleeping too much: not at all 4. Feeling tired or having little energy: several days 5. Poor appetite or overeating: several days 6. Feeling bad about yourself - or that you are a failure or have let yourself or your family down: several days 7. Trouble concentrating on things, such as reading the newspaper or watching television: not at all 8. Moving or speaking so slowly that other people could have noticed. Or the opposite - being so fidgety or restless that you have been moving around a lot more than usual: not at all 9. Thoughts that you would be better off or of hurting yourself in some way: not at all Total score: 5 Depression Screening Interpretation: Positive [id number] - PHQ-9 Billing: Yes Source: Developed by Drs. Xavier Blackman, Jossy B.Gaurav Hathaway and colleagues, with an educational dread from [employer]. Thrive Questionnaire Date Thrive assessed: 02/11/23 AUDIT C Alcohol Use Questionnaire (AUDIT-C) 1. How often do you have a drink containing alcohol?: Never Total Score: 0 Score Reviewed/Action Taken: Yes MICHAEL-7 AMB Questionnaire MICHAEL-7 Date MICHAEL - 7 assessed: 02/11/23 Source: Developed by Drs. Xavier Blackman, Gaurav Corrales and colleagues, with an educational dread from [employer]. Review of Systems Const Denies chills, Denies headache(s) and Denies weight loss ENT Denies headache(s) Card Denies chest pain, Denies syncope, Denies irregular heart rhythm and Denies dyspnea Resp Denies chest congestion, Denies cough and Denies dyspnea GI Denies abdominal pain, Denies change in stool character, Denies nausea and Denies vomiting Musc Denies deformity and Denies joint swelling Neuro Denies syncope and Denies headache(s) Physical exam (Primary Care) Vital Signs: Last Vital Signs Pulse 85 08/16/23 10:00 BP 140/84 H 08/16/23 10:00 Pulse Ox 98 08/16/23 10:00 Oxygen Delivery Method Room Air 08/16/23 10:00 BMI result Body Mass Index 29.7 Tobacco/Smoking Status: Tobacco use Status Tobacco use date assessed 05/13/23 08/16/23 10:02 Patient Tobacco Use Status Never used Tobacco 08/16/23 10:02 e-Cigarette/Vaping Use Never Used 08/16/23 10:02 PHQ-9: PHQ-9 Score PHQ-9: Total score 5 08/16/23 10:09 Depression Screening Interpretation: Positive Thrive Assessment: Date of Thrive Assessment Date Thrive assessed 02/11/23 08/16/23 10:02 Const General: cooperative, comfortable, no acute distress and alert Neck Neck: Yes no lymphadenopathy Thyroid: Thyroid normal Resp Effort & Inspection: normal respiratory effort Auscultation: clear to auscultation bilaterally Percussion: percussion normal Cardio Jugular venous distension: no JVD Palpation: normal PMI Rate: regular rate Rhythm: regular rhythm Heart sounds: S1 normal heart sound present and S2 normal heart sound present GI Inspection: Yes normal to inspection Palpation (GI): No hepatosplenomegaly present Skin General skin exam: no rashes or lesions noted Extrem General: Yes no clubbing, cyanosis or edema Office Procedures Flu Questionnaire Does the patient have a severe egg allergy?: No Does the patient have severe life threatening allergies?: No Does the patient have a fever or illness today?: No Has the patient ever had Guillain-Grandfalls Syndrome?: No Has the patient ever had any past reaction to a flu shot?: No Immunizations flu vacc [id number] 6mos up(PF) 60 mcg(15 mcgx4)/0.5 mL IM syringe Performing Provider: Da Eckert MD [facility] Documented (not given) by: WOODY Spears on 08/16/23 10:09 Reason Not Given: Patient Refused Assessment and Plan Assessment & Plan (1) Diabetes mellitus with coincident hypertension: Code(s): E11.9 - Type 2 diabetes mellitus without complications; I10 - Essential (primary) hypertension Plan: stable;; same rx; do labs (2) Hypertension: Code(s): I10 - Essential (primary) hypertension Plan: stable;same rx (3) Seronegative rheumatoid arthritis: Code(s): M06.00 - Rheumatoid arthritis without rheumatoid factor, unspecified site Plan: as per rheum Orders: Orders Influenza [id number] Immunization Today Z23 - Encounter for immunization AMB Hemoglobin A1c Today E11.9 - Type 2 diabetes mellitus without complications Microalbumin, Random (w Creat) Today E11.69 - Type 2 diabetes mellitus with other specified complication, E66.01 - Morbid (severe) obesity due to excess calories Thyroid Stimulating Hormone Today E03.9 - Hypothyroidism, unspecified Comprehensive [place]. Panel Fast Today N28.9 - Disorder of kidney and ureter, unspecified Complete Blood Count Auto Diff Today D64.9 - Anemia, unspecified Hemoglobin A1c Today R73.9 - Hyperglycemia, unspecified Coding Level of Care Code Est Pt Level 4 (90295) Diagnoses Diabetes mellitus with coincident hypertension E11.9; I10 Hypertension I10 Seronegative rheumatoid arthritis M06.00
== END 2023-08-16 10:15 | disposition home or self-care (01) ==
PROVIDERS: PCP Internal Medicine; Visit Provider Internal Medicine
DX: E11.9 Type 2 diabetes mellitus without complications (principal); I10 Essential (primary) hypertension; M06.00 Rheumatoid arthritis without rheumatoid factor, unspecified site; Z23 Encounter for immunization
CPT/HCPCS: 83036; 90471; 99214

== ENCOUNTER 2023-08-16 12:54 | Outpatient (AMB) | payer OTHER, SELFPAY ==
[2023-08-16 13:03] VITALS: BP 143/76; PULSE 65; BMI 28.8
--- NOTE | 2023-08-16 13:03 | A.OFFVIS_ITS ---
Intake Vital Signs 08/16/23 13:03 Height 5 ft 10 in Weight 201 lb BMI 28.8 BP 143/76 H Blood Pressure Location Lt brachial Position Sitting Pulse 65 Intake Visit Reasons: med refill Intake Note: Angel presents in office today in follow up of GERD. CC: Patient reports he hasn't been too good from his acid reflux depending on what he eats. He also c/o abdominal bloating and abdominal pain. Patient has been taking Pantoprazole in the morning and it helps a little bit but not much. He states that he continues to take Linzess when needed. 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: No Accompanied by: Self / Same As Patient Allergies lisinopril Allergy (Mild, Verified 08/16/23 13:08) Closed throat sulfamethoxazole [From Bactrim] Allergy (Mild, Verified 08/16/23 13:08) Rash trimethoprim [From Bactrim] Allergy (Mild, Verified 08/16/23 13:08) Rash fish derived [fish] Allergy (Unknown, Verified 08/16/23 13:08) Rash, Redness morphine [MORPHINE] Allergy (Unknown, Verified 08/16/23 13:08) Nausea and Vomiting Sulfa (Sulfonamide Antibiotics) Allergy (Unknown, Verified 08/16/23 13:08) rash Fish Containing Products Adverse Reaction (Unknown, Verified 08/16/23 13:08) Worsens Gout symptoms HPI med refill HPI Details Assessment & Plan (1) Chronic GERD: ?Code(s): K21.9 - Gastro-esophageal reflux disease without esophagitis ?Plan: He does not feel of the Linzess did him any good any dose.? He is having better results using bisacodyl every day so we will continue this.? He continues to have quite a bit of trouble with acid reflux and dyspepsia any f eels that his generic Nexium is no longer working well for him.? I think we will try changing him to pantoprazole and he can continue trying to take famotidine at night.? He did feel like the Reglan at 5 mg 3 times a day did anything good or bad.? Because he still complains of quite a lot of overnight acid brash in choking I think will increase the dose to 10 mg and add a 4th dose before bed. Return office visit in 4 weeks to evaluate his response. (2) Chronic idiopathic constipation: ?Code(s): K59.04 - Chronic idiopathic constipation (3) Delayed gastric emptying: ?Code(s): K30 - Functional dyspepsia ? ? ? Medications: New pantoprazole (Prot javier) 40 mg? PO DAILY 30 days 30 tabs 6RF D ? ? metoclopramide HCl (Reglan) 10 mg? PO QIDACHS 60 tabs 6RF K30 - Functional d yspepsia ? bisacodyl (Dulcola x (bisacodyl)) 10 mg (2 x 5 mg) P O BEDTIME 30 days 60 tabs 6RF K59.04 - Chronic i diopathic constipa tion ? Discontinued esomeprazole magne sium ?? Discontinu ed Reason:? Doctor 's Order 40 mg? PO DAILY 30 caps 6RF ? ? metoclopramide HCl (Reglan) ?? Disco ntinued Reason:? D octor's Order 5 mg? PO .tidac 90 tabs 3RF K30 - Functional d yspepsia ? linaclotide (Linze ss) ?? Discontinue d Reason:? Doctor' s Order 290 mcg? PO QAM 30 days 30 caps 6RF D K59.04 - Chronic i diopathic constipa tion ? TODAY'S VISIT He says he presented to the ER at [facility] [place] for severe CP and GERD. He wanted to be sure he was not having a AR. With review of his medication he has run out of his reglan and this is the most likely cause. He also is not moving his bowels well, he was on bisacodyl because he was not convinced that the LInzess was working well.....but he was taking it qhs and not in the am. This was reviewed. Now he wants to go back to LInzess and we will start a 290. He DID note that his HB was worse when his sister served him full caff coffee. ROV 6 weeks. [facility] Medical History (Updated 08/16/23 @ 13:09 by Cayla Tejada, ANP-C) History of cardiac murmur Avascular necrosis of bone of hip Chronic GERD Sinus infection Obesity Diabetes mellitus with coincident hypertension Diabetes mellitus Dysuria Diabetes COVID-19 Chronic GERD Cough Surgical History (Updated 08/16/23 @ 13:09 by KIM Pratt) History of surgery on right wrist History of esophagogastroduodenoscopy (EGD) H/O colonoscopy H/O total hip arthroplasty H/O wrist surgery History of umbilical hernia repair History of wisdom tooth extraction History of tonsillectomy Family History Father No problems noted. Mother Colon cancer Diabetes Hypertension Family/Other Diabetes Hypertension Social History Housing: Apartment Alcohol intake: never Patient Tobacco Use Status: Never used Tobacco e-Cigarette/Vaping Use: Never Used Second Hand Smoke Exposure: Yes service: No Current occupational status: disabled Current occupational exposures/hazards: No Cognitive needs: No Hearing needs: No Vision needs: Yes Review of Systems Const Denies fatigue, Denies fever(s), Denies night sweats, Denies poor appetite and Denies weight loss ENT Reports Normal hearing present, Denies dental pain, Denies dysphagia, Denies hearing loss, Denies mouth pain, Denies odynophagia, Denies throat swelling, Denies tongue swelling and Reports other (Dentition adequate) Card Reports chest pain Resp Reports no additional complaints GI Denies abdominal pain, Denies melena, Reports bloating, Denies hematochezia, Reports constipation, Denies GI cramping, Denies dysphagia, Denies excessive flatus, Denies early satiety, Reports heartburn, Denies diarrhea, Denies nausea, Denies odynophagia, Denies vomiting and Denies hematemesis Skin/Breast Denies pruritus, Denies lesions, Denies rash and Denies jaundice Neuro Reports Normal hearing present and Denies Abnormal speech present Endo Denies fatigue Aller/Immun Denies throat swelling and Denies tongue swelling Physical Exam Vital Signs: BMI result Body Mass Index 28.8 Const General: cooperative, no acute distress, well developed and well groomed Nutritional Appearance: well nourished and overweight Orientation/consciousness: oriented to person, oriented to place and oriented to time Limitations: No language barrier HEENT Head: Yes normocephalic and Yes atraumatic Eyes General: appearance normal, both eyes and all related structures Pupils: Equal, round and reactive pupils present Neck Neck: Yes normal visual inspection and Yes no lymphadenopathy Thyroid: Thyroid normal Resp Effort & Inspection: normal respiratory effort and able to speak in complete sentences Auscultation: clear to auscultation bilaterally Cardio Rate: regular rate Rhythm: regular rhythm Heart sounds: Normal, physiologic split S2 sound present Peripheral pulses: radial pulses present and posterior tibial pulses present GI Inspection: No distended, No Abdominal panniculus present and Yes obesity Palpation (GI): Soft to palpation, nontender, no guarding, not rigid and No hepatosplenomegaly present Percussion: Yes normal to percussion Auscultation: normal bowel sounds Rectal Exam - Male: Yes deferred Skin General skin exam: no rashes or lesions noted, turgor normal, skin not dry, no jaundice, No spider nevi and no striae Rashes: no rashes Nails: normal Neuro General: oriented to person, oriented to place and oriented to time Cranial nerves: Yes Equal, round and reactive pupils present and Yes Normal hearing present Speech: No Abnormal speech present Extrem General: Yes normal to inspection, No clubbing, No cyanosis and No edema Psych Appearance: grossly normal and well kempt Mental Status: mental status grossly normal Speech and movement: Normal speech and movement present Affect: normal affect Attitude: cooperative Thought process: Normal thought process present and not confabulating Thought content: Normal thought content present Insight: Limited insight present (Psych) Judgement: Limited judgement present (Psych) Results AMB Hemoglobin A1c AMB Hemoglobin A1c 7.1 % Last Edit by WOODY Spears on 08/16/23 12:34 Assessment & Plan Assessment & Plan (1) Delayed gastric emptying: Code(s): K30 - Functional dyspepsia Plan: He says he presented to the ER at [facility] [place] for severe CP and GERD. He wanted to be sure he was not having a AR. With review of his medication he has run out of his reglan and this is the most likely cause. He also is not moving his bowels well, he was on bisacodyl because he was not convinced that the LInzess was working well.....but he was taking it qhs and not in the am. This was reviewed. Now he wants to go back to LInzess and we will start a 290. He DID note that his HB was worse when his sister served him full caff coffee. ROV 6 weeks (2) Chronic GERD: Code(s): K21.9 - Gastro-esophageal reflux disease without esophagitis (3) Chronic idiopathic constipation: Code(s): K59.04 - Chronic idiopathic constipation (4) Family history of colon cancer in mother: Comment: 08/2022 scope=hyperplastic polyp repeat in 5 years aeb Code(s): Z80.0 - Family history of malignant neoplasm of digestive organs Medications: New metoclopramide HCl (Reglan) 5 mg PO QIDACHS 120 tabs 6RF K30 - Functional dyspepsia linaclotide (Linzess) First thing in the morning with a full glass of water 290 mcg PO QAM 30 days 30 caps 6RF Discontinued sucralfate (Carafate) Discontinued Reason: Doctor's Order 1 g PO .before meals 60 tabs 0RF Coding Level of Care Code Est Pt Level 3 (84840) Diagnoses Delayed gastric emptying K30 Chronic GERD K21.9 Chronic idiopathic constipation K59.04 Family history of colon cancer in mother Z80.0
== END 2023-08-16 14:02 | disposition home or self-care (01) ==
PROVIDERS: PCP Internal Medicine; Visit Provider Nurse Practitioner
DX: K30 Functional dyspepsia (principal); K21.9 Gastro-esophageal reflux disease without esophagitis; K59.04 Chronic idiopathic constipation; Z80.0 Family history of malignant neoplasm of digestive organs
CPT/HCPCS: 99213

== ENCOUNTER → 2023-08-16 12:54 | Outpatient (BNVA) | payer OTHER, SELFPAY | PROVIDERS: PCP Internal Medicine; Visit Provider Nurse Practitioner | DX: K21.9 Gastro-esophageal reflux disease without esophagitis (principal); K59.04 Chronic idiopathic constipation; K30 Functional dyspepsia; Z80.0 Family history of malignant neoplasm of digestive organs | CPT/HCPCS: 99212 ==

== ENCOUNTER 2023-10-27 09:23 | Outpatient (AMB) | payer OTHER, SELFPAY ==
[2023-10-27 09:26] VITALS: BP 140/72; PULSE 67; O2SAT 98; BMI 31.3
--- NOTE | 2023-10-27 09:26 | A.OFFPC_ITS ---
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: Not Required per policy Accompanied by: Self / Same As Patient Allergies lisinopril Allergy (Mild, Verified 10/27/23 09:27) Closed throat sulfamethoxazole [From Bactrim] Allergy (Mild, Verified 10/27/23 09:27) Rash trimethoprim [From Bactrim] Allergy (Mild, Verified 10/27/23 09:27) Rash fish derived [fish] Allergy (Unknown, Verified 10/27/23 09:27) Rash, Redness morphine [MORPHINE] Allergy (Unknown, Verified 10/27/23 09:27) Nausea and Vomiting Sulfa (Sulfonamide Antibiotics) Allergy (Unknown, Verified 10/27/23 09:27) rash Fish Containing Products Adverse Reaction (Unknown, Verified 10/27/23 09:27) Worsens Gout symptoms Medication List - Last Reconciled 10/27/23 by Da Eckert MD amoxicillin 1,000 mg (4 x 250 mg) PO ONCE blood sugar diagnostic (OneTouch Ultra Test strips) test once daily blood sugar diagnostic (FreeStyle Lite Strips) As directed once a day blood-glucose meter (OneTouch Ultra2 Meter) test once daily blood-glucose meter (Easy-Touch Blood Glucose Meter) As directed blood-glucose meter (FreeStyle Lite Meter kit) As directed glipizide 5 mg PO DAILY ibuprofen 600 mg PO TID PRN lancets (SoftArtTouch UltraSoft 2 Lancet) test once daily lancets (FreeStyle Lancets) As directed once a day linaclotide (Linzess) 290 mcg PO QAM 30 days metoclopramide HCl (Reglan) 5 mg PO QIDACHS multivitamin (Daily Multi-Vitamin tablet) 1 tab PO DAILY pantoprazole (Protonix) 40 mg PO DAILY 30 days valsartan 80 mg PO DAILY Tobacco use date assessed: 05/13/23 Dental Screening Dental Screen Date: 10/27/23 Did you have a dental visit in the last 12 months?: Yes Did you have a dental problem in the last 6 months where you did not have access to dental care?: No Was dental information given to patient?: Patient has dentist HPI STD check HPI Details concerned about STD exposure; no symptoms PFSH Medical History History of cardiac murmur Avascular necrosis of bone of hip Chronic GERD Sinus infection Obesity Diabetes mellitus with coincident hypertension Diabetes mellitus Dysuria Diabetes COVID-19 Chronic GERD Cough Surgical History History of surgery on right wrist History of esophagogastroduodenoscopy (EGD) H/O colonoscopy H/O total hip arthroplasty H/O wrist surgery History of umbilical hernia repair History of wisdom tooth extraction History of tonsillectomy Family History Father No problems noted. Mother Colon cancer Diabetes Hypertension Family/Other Diabetes Hypertension Social History Housing: Apartment Alcohol intake: never Patient Tobacco Use Status: Never used Tobacco e-Cigarette/Vaping Use: Never Used Second Hand Smoke Exposure: Yes service: No Current occupational status: disabled Current occupational exposures/hazards: No Cognitive needs: No Hearing needs: No Vision needs: Yes Questionnaire Thrive Questionnaire Date Thrive assessed: 02/11/23 MICHAEL-7 AMB Questionnaire MICHAEL-7 Date MICHAEL - 7 assessed: 02/11/23 Source: Developed by Drs. Xavier Blackman, Jossy Puente, Gaurav Ruano and colleagues, with an educational dread from [employer]. Review of Systems Const Denies chills, Denies headache(s) and Denies weight loss ENT Denies headache(s) Card Denies chest pain, Denies syncope, Denies irregular heart rhythm and Denies dyspnea Resp Denies chest congestion, Denies cough and Denies dyspnea GI Denies abdominal pain, Denies change in stool character, Denies nausea and Denies vomiting Musc Denies deformity and Denies joint swelling Neuro Denies syncope and Denies headache(s) Physical exam (Primary Care) Vital Signs: Last Vital Signs Pulse 67 10/27/23 09:26 BP 140/72 H 10/27/23 09:26 Pulse Ox 98 10/27/23 09:26 Oxygen Delivery Method Room Air 12/14/23 09:26 BMI result Body Mass Index 31.3 Tobacco/Smoking Status: Tobacco use Status Tobacco use date assessed 05/13/23 10/27/23 09:30 Patient Tobacco Use Status Never used Tobacco 10/27/23 09:30 e-Cigarette/Vaping Use Never Used 10/27/23 09:30 Thrive Assessment: Date of Thrive Assessment Date Thrive assessed 02/11/23 10/27/23 09:30 Const General: cooperative, comfortable, no acute distress and alert Neck Neck: Yes no lymphadenopathy Thyroid: Thyroid normal Resp Effort & Inspection: normal respiratory effort Auscultation: clear to auscultation bilaterally Percussion: percussion normal Cardio Jugular venous distension: no JVD Palpation: normal PMI Rate: regular rate Rhythm: regular rhythm Heart sounds: S1 normal heart sound present and S2 normal heart sound present GI Inspection: Yes normal to inspection Palpation (GI): No hepatosplenomegaly present Skin General skin exam: no rashes or lesions noted Extrem General: Yes no clubbing, cyanosis or edema Assessment and Plan Assessment & Plan (1) Possible exposure to STD: Code(s): Z20.2 - Contact with and (suspected) exposure to infections with a predominantly sexual mode of transmission Plan: labs Orders: Orders Herpes Simplex Virus Ab IgG Today Z20.2 - Contact with and (suspected) exposure to infections with a predominantly sexual mode of transmission HIV Ab/Ag Today Z20.2 - Contact with and (suspected) exposure to infections with a predominantly sexual mode of transmission Hepatitis C Antibody Today Z20.2 - Contact with and (suspected) exposure to infections with a predominantly sexual mode of transmission Syphilis Screen Today Z20.2 - Contact with and (suspected) exposure to infections with a predominantly sexual mode of transmission Coding Level of Care Code Est Pt Level 3 (17905) Diagnoses Possible exposure to STD Z20.2
== END 2023-10-27 09:39 | disposition home or self-care (01) ==
PROVIDERS: PCP Internal Medicine; Visit Provider Internal Medicine
DX: Z20.2 Contact with and (suspected) exposure to infections with a predominantly sexual mode of transmission (principal)
CPT/HCPCS: 99213

== ENCOUNTER 2023-10-27 09:44 | Outpatient (REF) | payer OTHER, SELFPAY ==
[2023-10-27 10:31] LABS: MANUAL DIFF FLAG NO
[2023-10-27 10:48] LABS: Basophils Percent Auto 0.6 % (0-2); Eosinophils Absolute Auto 0.1 X10*3/uL (0.0-0.4); Eosinophils Percent Auto 1.4 % (0-4); Hematocrit 42.9 % (42.0-52.0); Imm Gran Abs Auto 0.02 X10*3/uL (0.00-0.03); Imm Gran Pct Auto 0.3 % (0.0-0.4); Lymphocytes Percent Auto 27.6 % (20-40); Mean Corpuscular Hemoglobin 28.7 pg (27.0-33.0); Mean Corpuscular Volume 82.2 fL (80.0-98.0); Mean Platelet Volume 10.7 fL (9.4-12.4); Monocytes Absolute Auto 0.5 X10*3/uL (0.1-1.2); Neutrophils Absolute Auto 4.6 x10*3/uL (2.0-8.3); Neutrophils Percent Auto 63.1 % (45-73); Platelet Count 273 X10*3/uL (160-400); Red Blood Count 5.22 X10*6/uL (4.60-5.80); Red Cell Distribution Width 13.1 % (11.0-16.0); White Blood Count 7.3 X10*3/uL (4.8-10.8)
[2023-10-27 11:04] LABS: Estimated Average Glucose 146 mg/dL; Hemoglobin A1c % 6.7 % (<6.0)
[2023-10-27 11:16] LABS: Alanine Aminotransferase 19 U/L (0-40); Albumin Level 4.2 g/dL (3.5-5.0); Alkaline Phosphatase 61 U/L (39-117); Anion Gap 14 (12-20); Aspartate Amino Transferase 18 U/L (5-37); Bilirubin Total 0.5 mg/dL (0.0-1.0); Blood Urea Nitrogen 20 mg/dL (9-16); Calcium 9.8 mg/dL (8.4-10.2); Carbon Dioxide 27 mmol/L (22-29); Chloride 101 mmol/L (96-108); Estimated Glomerular Filt Rate > 60; Glucose Fasting 232 mg/dL (60-99); Potassium 3.8 mmol/L (3.3-5.1); Sodium 138 mmol/L (135-145); Total Protein 7.5 g/dL (6.5-8.0)
[2023-10-27 11:28] LABS: HIV AB/AG Nonreactive (Nonreactive); HIV Num 1 0.04 S/CO (0.00-0.99); Syphilis Screen Nonreactive (Nonreactive); ~HepC Num1 0.49 S/CO (0.00-0.79); ~Hepatitis C Antibody Nonreactive (Nonreactive)
[2023-10-27 11:35] LABS: Thyroid Stimulating Hormone 0.98 uIU/mL (0.32-4.0)
[2023-10-27 11:42] LABS: Creatinine Urine 170.86 mg/dL; Microalbum/Creatinine Ratio Ur 5.8 ug/mg cr (<30)
== END 2023-10-27 09:45 | disposition home or self-care (01) ==
LOC: HO.LAB 09:44
PROVIDERS: PCP Internal Medicine; Visit Provider Internal Medicine
DX: Z11.4 Encounter for screening for human immunodeficiency virus [HIV] (principal); E11.65 Type 2 diabetes mellitus with hyperglycemia; E11.69 Type 2 diabetes mellitus with other specified complication; E66.01 Morbid (severe) obesity due to excess calories; E03.9 Hypothyroidism, unspecified; N28.9 Disorder of kidney and ureter, unspecified; D64.9 Anemia, unspecified; Z20.2 Contact with and (suspected) exposure to infections with a predominantly sexual mode of transmission
CPT/HCPCS: 36415; 80053; 82043; 82570; 83036; 84443; 85025; 86695; 86696; 86780; 86803; 87389

== ENCOUNTER 2023-12-05 14:01 | Emergency (ER) | payer OTHER, SELFPAY ==
[2023-12-05 14:07] VITALS: BP 149/71; PULSE 58; RESP 19; TEMP 36.6; O2SAT 98; BMI 30.3
--- NOTE | 2023-12-05 14:07 | ED.GENADULT ---
HPI - General Adult General Chief complaint: Neck Pain/Injury Stated complaint: Shoulder/neck pain Time Seen by Provider: 12/05/23 14:09 Source: patient Mode of arrival: ambulatory Limitations: no limitations History of Present Illness HPI narrative: Patient is a 48 year old assigned male at with a history of GERD, HTN, and BPH presenting to the emergency department today with low neck / upper back pain. Patient states that over the last day he has noticed upper back and low neck pain that is worse with movement. Patient denies any dizziness, lightheadedness, abdominal pain, nausea, vomiting, fever, chills, blurry vision, double vision, loss of vision, chest pain, difficulty breathing, shortness of breath, night sweats, pain with urination, increased urinary frequency, increased urinary urgency, blood in his urine or stool, syncope or a near syncopal episode, recent trauma or falls, bowel incontinence, bladder incontinence, bowel retention, bladder retention, or any other complaints at this time. Onset (ago): day(s) Location: neck and back Severity: mild Severity scale (1-10): 3 Quality: aching and dull Pain Consistency: constant Relieving factors: none Exacerbating factors: movement Associated symptoms: denies other symptoms Treatments prior to arrival: none Related Data Home Medications Medication Instructions Recorded Confirmed multivitamin (Daily Multi-Vitamin 1 tab PO DAILY 04/06/23 10/27/23 tablet) Previous Rx's Medication Instructions Recorded glipizide 5 mg tablet 5 mg PO DAILY #90 tabs 11/03/22 blood sugar diagnostic (OneTouch #100 ea 05/25/23 Ultra Test strips) blood-glucose meter (Easy-Touch #1 ea 05/25/23 Blood Glucose Meter) blood-glucose meter (OneTouch #1 ea 05/25/23 Ultra2 Meter) lancets 30 gauge (OneTouch #100 ea 05/25/23 UltraSoft 2 Lancet) ibuprofen 600 mg tablet 600 mg PO TID PRN pain #14 tabs 07/14/23 pantoprazole 40 mg tablet,delayed 40 mg PO DAILY 30 days #30 tabs 07/22/23 release (Protonix) linaclotide 290 mcg capsule 290 mcg PO QAM 30 days #30 caps 08/16/23 (Linzess) metoclopramide HCl 5 mg tablet 5 mg PO QIDACHS #120 tabs 08/16/23 (Reglan) blood sugar diagnostic (FreeStyle #100 ea 08/31/23 Lite Strips) blood-glucose meter (FreeStyle #1 ea 08/31/23 Lite Meter kit) lancets 28 gauge (FreeStyle #100 ea 08/31/23 Lancets) amoxicillin 250 mg capsule 1,000 mg (4 x 250 mg) PO ONCE #4 10/10/23 caps valsartan 80 mg tablet 80 mg PO DAILY #90 tabs 11/02/23 cyclobenzaprine 5 mg tablet 5 mg PO TID PRN muscle spasm 7 12/05/23 days #21 tabs naproxen 500 mg tablet 500 mg PO BID 7 days #14 tabs 12/05/23 Allergies Allergy/AdvReac Type Severity Reaction Status Date / Time lisinopril Allergy Mild Closed Verified 12/05/23 14:07 throat sulfamethoxazole Allergy Mild Rash Verified 12/05/23 14:07 [From Bactrim] trimethoprim [From Bactrim] Allergy Mild Rash Verified 12/05/23 14:07 fish derived [fish] Allergy Unknown Rash, Verified 12/05/23 14:07 Redness morphine [MORPHINE] Allergy Unknown Nausea and Verified 12/05/23 14:07 Vomiting Sulfa (Sulfonamide Allergy Unknown rash Verified 12/05/23 14:07 Antibiotics) Fish Containing Products AdvReac Unknown Worsens Verified 12/05/23 14:07 Gout symptoms Review of Systems Constitutional: Constitutional: Reports no additional constitutional complaints, Denies chills, Denies fever(s) and Denies night sweats Eyes: Eyes: Reports no additional eye complaints, Denies blurry vision, Denies change in vision, Denies diplopia, Denies eye discharge, Denies loss of vision and Denies eye pain ENT: Denies dizziness and Reports neck pain Cardiovascular: Cardiovascular: Reports no additional cardiovascular complaints, Denies chest pain, Denies lightheadedness, Denies Loss of Consciousness and Denies dyspnea Respiratory: Respiratory: Reports no additional respiratory complaints and Denies dyspnea Gastrointestinal: Gastrointestinal: Reports no additional gastrointestinal complaints, Denies abdominal pain, Denies melena, Denies hematochezia, Denies change in bowel habits and Denies change in stool character Genitourinary: Genitourinary: Reports no additional male genitourinary complaints, Denies hematuria, Denies oliguria, Denies difficulty urinating, Denies dysuria, Denies urinary frequency, Denies urinary hesitancy, Denies urinary incontinence and Denies urinary urgency Musculoskeletal: Musculoskeletal: Reports no additional musculoskeletal complaints, Reports neck pain, Denies numbness and Denies tingling Comments: upper back pain Neurologic: Denies dizziness, Denies loss of vision, Denies numbness and Denies tingling Psychiatric: Psychiatric: Reports no additional psychiatric complaints Endocrine: Endocrine: Reports no additional endocrine complaints Hematologic/Lymphatic: Hematologic/Lymphatic: Reports no additional hematologic/lymphatic complaints Allergic/Immunologic: Allergic/Immunologic: Reports no additional allergic/immunologic complaints [facility] Past Medical History Attestation statement: The following information was validated with the patient. Source: old records reviewed and nursing notes reviewed Medical History Back pain Neck pain Possible exposure to STD Tendinitis of left elbow Delayed gastric emptying Rash Fibroma of skin Obesity Screening for prostate cancer Adult general medical exam Diabetes mellitus with coincident hypertension Gout Sinusitis History of cardiac murmur Avascular necrosis of bone of hip Chronic GERD Sinus infection Diabetes mellitus Dysuria Diabetes COVID-19 Chronic GERD Cough Surgical History History of surgery on right wrist History of esophagogastroduodenoscopy (EGD) H/O colonoscopy H/O total hip arthroplasty H/O wrist surgery History of umbilical hernia repair History of wisdom tooth extraction History of tonsillectomy Family History Family History Father No problems noted. Mother Colon cancer Diabetes Hypertension Family/Other Diabetes Hypertension Social History Social History Housing: Apartment Alcohol intake: never Patient Tobacco Use Status: Never used Tobacco e-Cigarette/Vaping Use: Never Used Second Hand Smoke Exposure: Yes Advance Directives: No Advance Directives Information Provided: Yes service: No Current occupational status: disabled Current occupational exposures/hazards: No Cognitive needs: No Hearing needs: No Vision needs: Yes Physical Exam ED Vital Signs: Vital Signs - 24 hr 12/05/23 14:07 Temperature 98 F Pulse Rate 58 Respiratory Rate 19 Blood Pressure 149/71 H Pulse Oximetry 98 Oxygen Delivery Method Room Air BMI result Body Mass Index 30.3 Const General: cooperative, no acute distress, alert and awake Nutritional Appearance: well nourished Orientation/consciousness: patient oriented x3 Limitations: no limitations HENMT Head: Yes normal to inspection and Yes atraumatic Ears: hearing grossly normal bilaterally and external ears normal General nose exam: Normal external nose present, no nasal discharge noted and no epistaxis Face and sinus: Yes normal facial exam, No abrasion and No laceration Mouth: Normal oral and palatal mucosa present, no drooling and no muffled voice Eyes General: appearance normal, both eyes and all related structures Periorbital: periorbital findings normal Eyelids: Yes eyelids normal Conjunctivae: conjunctivae normal Pupils: Equal, round and reactive pupils present EOM: EOMs intact bilaterally Neck Neck: Yes normal visual inspection, Yes full ROM and Yes no lymphadenopathy Chest Chest palpation & inspection: normal inspection of the chest Resp Effort & Inspection: normal respiratory effort and able to speak in complete sentences GI Inspection: Yes normal to inspection General: Yes no CVA tenderness Back/Spine/Pelvis Back: no CVA tenderness Cervical Spine: normal cervical lordosis and cervical ROM normal Thoracic/Lumbar Spine: thoracic and lumbar spine normal to inspection Pelvis: no pain with anterior-posterior compression Neuro General: patient oriented x3 and moves all extremities Cranial nerves: Yes Equal, round and reactive pupils present Cognition (Neuro): normal cognition Motor exam (neuro): 5/5 motor strength present throughout Sensory Exam: Normal double simultaneous stimulation for sensation Coordination: [id number] test normal Extrem General: Yes normal to inspection, Yes full ROM and Yes capillary refill normal Psych Appearance: grossly normal Mental Status: mental status grossly normal Affect: normal affect Attitude: cooperative Thought process: Normal thought process present Thought content: Normal thought content present Insight: Good insight present (Psych) Medical Decision Making Medical Decision Making MDM Narrative: Patient is a 48 year old assigned male at with a history of GERD, HTN, and BPH presenting to the emergency department today with lower neck and upper back pain. Patient's physical exam was unremarkable. I explained my physical exam findings to the patient. I answered all questions asked by the patient. I stressed the importance of the patient taking his medication as prescribed. I stressed the importance of the patient following up with his primary care provider. I stressed the importance of the patient returning to the emergency department immediately if his symptoms were to worsen or if he were to develop any dizziness, shortness of breath, difficulty breathing, chest pain, blurry vision, loss of vision, nausea, vomiting, abdominal pain, fever, chills, back pain, or any other complaints. Patient verbalized agreement and understanding with this treatment plan and discharge. Differential Diagnosis Differential Diagnoses: The differential diagnosis associated with the presentation includes Neck pain Back pain Cervical radiculopathy Muscle spasm Muscle strain Admission/Observation Consideration of admission/observation: Escalation of care including admission/observation considered Patient would have been admitted to the hospital had his clinical presentation warranted hospital admission. Tests considered The following testing was considered but not selected: Imaging including a CT scan and/or X-ray were considered of the neck and back however, the patient's clinical presentation does not warrant it at this time. I discussed this with the patient who verbalized agreement and understanding. Prescription Management I considered prescription management with: Pain Medication (patient prescribed pain medication) Discharge Plan Discharge Clinical Impression: Neck pain, Back pain Patient Disposition: Home, Self-Care Instructions: Back Pain (ED), Neck Pain (ED) Additional Instructions: Follow up with your primary care provider. Return to the emergency department immediately if your symptoms worsen or if you develop any dizziness, shortness of breath, difficulty breathing, chest pain, blurry vision, loss of vision, nausea, vomiting, abdominal pain, fever, chills, back pain, or any other complaints. Prescriptions: New naproxen 500 mg tablet 500 mg PO BID 7 Days Qty: 14 0RF cyclobenzaprine 5 mg tablet 5 mg PO TID PRN (Reason: muscle spasm) 7 Days Qty: 21 0RF No Action glipizide 5 mg tablet 5 mg PO DAILY Qty: 90 8RF (DME) blood-glucose meter [Easy-Touch Blood Glucose Meter] [facility] See Rx Instructions .Route Qty: 1 0RF Rx Instructions: As directed (DME) blood-glucose meter [OneTouch Ultra2 Meter] [facility] See Rx Instructions .Route Qty: 1 0RF Rx Instructions: test once daily (DME) OneTouch Ultra Test Strip See Rx Instructions .Route Qty: 100 8RF Rx Instructions: test once daily (DME) lancets [OneTouch UltraSoft 2 Lancet] 30 gauge misc See Rx Instructions .Route Qty: 100 8RF Rx Instructions: test once daily pantoprazole [Protonix] 40 mg tablet,delayed release (DR/EC) 40 mg PO DAILY 30 Days Qty: 30 6RF (DME) blood-glucose meter [FreeStyle Lite Meter] Kit See Rx Instructions .ROUTE .MEDSUPPLY Qty: 1 0RF Rx Instructions: As directed (DME) FreeStyle Lite Strips Strip See Rx Instructions .ROUTE .MEDSUPPLY Qty: 100 12RF Rx Instructions: As directed once a day (DME) lancets [FreeStyle Lancets] 28 gauge misc See Rx Instructions .ROUTE .MEDSUPPLY Qty: 100 12RF Rx Instructions: As directed once a day amoxicillin 250 mg capsule 1,000 mg PO ONCE Qty: 4 0RF valsartan 80 mg tablet 80 mg PO DAILY Qty: 90 1RF ibuprofen 600 mg tablet 600 mg PO TID PRN (Reason: pain) Qty: 14 0RF multivitamin [Daily Multi-Vitamin] Tablet 1 tab PO DAILY metoclopramide HCl [Reglan] 5 mg tablet 5 mg PO QIDACHS Qty: 120 6RF Linzess 290 mcg capsule 290 mcg PO QAM 30 Days Qty: 30 6RF Rx Instructions: First thing in the morning with a full glass of water Referrals: Da Eckert MD [Primary Care Provider] - Interventions: ED Discharge Assessment Last Done: 12/05/23 14:15 Discharge Date/Time: 12/05/23 14:15 Print Language: Croatian
== END 2023-12-05 14:15 | disposition home or self-care (01) ==
PROVIDERS: Emergency Provider Emergency Medicine; PCP Internal Medicine
DX: M54.2 Cervicalgia (principal); M54.6 Pain in thoracic spine; I10 Essential (primary) hypertension; E11.9 Type 2 diabetes mellitus without complications; M06.00 Rheumatoid arthritis without rheumatoid factor, unspecified site; Z79.899 Other long term (current) drug therapy
CPT/HCPCS: 99282; 99283

== ENCOUNTER 2023-12-16 14:37 | Outpatient (AMB) | payer OTHER, SELFPAY ==
[2023-12-16 14:38] VITALS: BP 136/88; PULSE 58; O2SAT 96; BMI 32.2
--- NOTE | 2023-12-16 14:38 | MHC.PC.OV ---
Vital Signs 12/16/23 14:38 Height 5 ft 9 in Weight 218 lb BMI 32.2 BP 136/88 Blood Pressure Location Lt brachial Position Sitting Pulse 58 Pulse Source Pulse Oximeter Pulse Oximetry (%) 96 Oxygen Delivery Method Room Air Intake Visit Reasons: 3 month f/u Medications Intake Note: Patient is here to follow up on medication follow up [employer] Required: No Allergies lisinopril Allergy (Mild, Verified 12/16/23 14:39) Closed throat sulfamethoxazole [From Bactrim] Allergy (Mild, Verified 12/16/23 14:39) Rash trimethoprim [From Bactrim] Allergy (Mild, Verified 12/16/23 14:39) Rash fish derived [fish] Allergy (Unknown, Verified 12/16/23 14:39) Rash, Redness morphine [MORPHINE] Allergy (Unknown, Verified 12/16/23 14:39) Nausea and Vomiting Sulfa (Sulfonamide Antibiotics) Allergy (Unknown, Verified 12/16/23 14:39) rash Fish Containing Products Adverse Reaction (Unknown, Verified 12/16/23 14:39) Worsens Gout symptoms Medication List - Last Reconciled 12/19/23 by Da Eckert MD blood sugar diagnostic (OneTouch Ultra Test strips) test once daily blood sugar diagnostic (FreeStyle Lite Strips) As directed once a day blood-glucose meter (OneTouch Ultra2 Meter) test once daily blood-glucose meter (Easy-Touch Blood Glucose Meter) As directed blood-glucose meter (FreeStyle Lite Meter kit) As directed cyclobenzaprine 5 mg PO TID PRN 7 days glipizide 5 mg PO DAILY ibuprofen 600 mg PO TID PRN lancets (Twitt2goTouch UltraSoft 2 Lancet) test once daily lancets (FreeStyle Lancets) As directed once a day linaclotide (Linzess) 290 mcg PO QAM 30 days metoclopramide HCl (Reglan) 5 mg PO QIDACHS multivitamin (Daily Multi-Vitamin tablet) 1 tab PO DAILY naproxen 500 mg PO BID 7 days pantoprazole (Protonix) 40 mg PO DAILY 30 days valsartan 80 mg PO DAILY Tobacco use date assessed: 12/16/23 HPI 3 month f/u Medications HPI Details DM HTN and Irritable bowel dis; all stable; BS in good control PFSH Medical History (Updated 12/19/23 @ 09:26 by Da Eckert MD) Back pain Neck pain Possible exposure to STD Tendinitis of left elbow Delayed gastric emptying Rash Fibroma of skin Obesity Screening for prostate cancer Adult general medical exam Diabetes mellitus with coincident hypertension Gout Sinusitis History of cardiac murmur Avascular necrosis of bone of hip Chronic GERD Sinus infection Diabetes mellitus Dysuria Diabetes COVID-19 Chronic GERD Cough Surgical History History of surgery on right wrist History of esophagogastroduodenoscopy (EGD) H/O colonoscopy H/O total hip arthroplasty H/O wrist surgery History of umbilical hernia repair History of wisdom tooth extraction History of tonsillectomy Family History Father No problems noted. Mother Colon cancer Diabetes Hypertension Family/Other Diabetes Hypertension Social History Housing: Apartment Alcohol intake: never Patient Tobacco Use Status: Never used Tobacco e-Cigarette/Vaping Use: Never Used Second Hand Smoke Exposure: Yes service: No Current occupational status: disabled Current occupational exposures/hazards: No Cognitive needs: No Hearing needs: No Vision needs: Yes Questionnaire Thrive Questionnaire Date Thrive assessed: 12/16/23 AUDIT C Alcohol Use Questionnaire (AUDIT-C) 1. How often do you have a drink containing alcohol?: Never Total Score: 0 Score Reviewed/Action Taken: Yes MICHAEL-7 AMB Questionnaire MICHAEL-7 Date MICHAEL - 7 assessed: 12/16/23 Source: Developed by Drs. Xavier Blackman, Jossy Puente, Gaurav Ruano and colleagues, with an educational dread from [employer]. Review of Systems Const Denies chills, Denies headache(s) and Denies weight loss ENT Denies headache(s) Card Denies chest pain, Denies syncope, Denies irregular heart rhythm and Denies dyspnea Resp Denies chest congestion, Denies cough and Denies dyspnea GI Denies abdominal pain, Denies change in stool character, Denies nausea and Denies vomiting Musc Denies deformity and Denies joint swelling Neuro Denies syncope and Denies headache(s) Physical exam (Primary Care) Vital Signs: Last Vital Signs Pulse 58 12/16/23 14:38 BP 136/88 12/16/23 14:38 Pulse Ox 96 12/16/23 14:38 Oxygen Delivery Method Room Air 12/16/23 14:38 BMI result Body Mass Index 32.2 Tobacco/Smoking Status: Tobacco use Status Tobacco use date assessed 12/16/23 12/16/23 14:39 Patient Tobacco Use Status Never used Tobacco 12/16/23 14:39 e-Cigarette/Vaping Use Never Used 12/16/23 14:39 Thrive Assessment: Date of Thrive Assessment Date Thrive assessed 12/16/23 12/16/23 14:45 Const General: cooperative, comfortable, no acute distress and alert Neck Neck: Yes no lymphadenopathy Thyroid: Thyroid normal Resp Effort & Inspection: normal respiratory effort Auscultation: clear to auscultation bilaterally Percussion: percussion normal Cardio Jugular venous distension: no JVD Palpation: normal PMI Rate: regular rate Rhythm: regular rhythm Heart sounds: S1 normal heart sound present and S2 normal heart sound present GI Inspection: Yes normal to inspection Palpation (GI): No hepatosplenomegaly present Skin General skin exam: no rashes or lesions noted Extrem General: Yes no clubbing, cyanosis or edema Assessment and Plan Assessment & Plan (1) Chronic idiopathic constipation: Code(s): K59.04 - Chronic idiopathic constipation Plan: stable; same rx (2) Hypertension: Code(s): I10 - Essential (primary) hypertension Plan: stable; same rx (3) Diabetes mellitus: Code(s): E11.9 - Type 2 diabetes mellitus without complications Plan: stable ;same rx Orders: Orders Comprehensive [place]. Panel Fast Today N28.9 - Disorder of kidney and ureter, unspecified Complete Blood Count Auto Diff Today D64.9 - Anemia, unspecified Hemoglobin A1c Today R73.9 - Hyperglycemia, unspecified Microalbumin, Random (w Creat) Today E11.69 - Type 2 diabetes mellitus with other specified complication, E66.01 - Morbid (severe) obesity due to excess calories Lipid Panel Today E78.5 - Hyperlipidemia, unspecified Coding Level of Care Code Est Pt Level 4 (04611) Diagnoses Chronic idiopathic constipation K59.04 Hypertension I10 Diabetes mellitus E11.9
== END 2023-12-16 14:56 | disposition home or self-care (01) ==
PROVIDERS: PCP Internal Medicine; Visit Provider Internal Medicine
DX: K59.04 Chronic idiopathic constipation (principal); I10 Essential (primary) hypertension; E11.9 Type 2 diabetes mellitus without complications
CPT/HCPCS: 99214

== ENCOUNTER 2023-12-21 10:32 | Outpatient (AMB) | payer OTHER, SELFPAY ==
--- NOTE | 2023-12-21 10:47 | MHC.OFFVIS ---
Intake Vital Signs 12/21/23 10:56 Height 5 ft 9 in Weight 222 lb 3.615 oz BMI 32.8 BP 151/73 H Blood Pressure Location Rt brachial Position Sitting Pulse 65 Intake Visit Reasons: follow up requested by pt Intake Note: Angel presents in office today in follow up of GERD. CC: Patient reports he has been eating more fiber and that has helped with constipation. He continues to have abdominal bloating, and waking up chocking with acid reflux. Patient states he is eating better, not eating after 5, and having regular BMs. [employer] Required: No Accompanied by: Self / Same As Patient Allergies lisinopril Allergy (Mild, Verified 12/21/23 11:01) Closed throat sulfamethoxazole [From Bactrim] Allergy (Mild, Verified 12/21/23 11:01) Rash trimethoprim [From Bactrim] Allergy (Mild, Verified 12/21/23 11:01) Rash fish derived [fish] Allergy (Unknown, Verified 12/21/23 11:01) Rash, Redness morphine [MORPHINE] Allergy (Unknown, Verified 12/21/23 11:01) Nausea and Vomiting Sulfa (Sulfonamide Antibiotics) Allergy (Unknown, Verified 12/21/23 11:01) rash Fish Containing Products Adverse Reaction (Unknown, Verified 12/21/23 11:01) Worsens Gout symptoms HPI follow up requested by pt HPI Details Assessment & Plan (1) Delayed gastric emptying: Code(s): K30 - Functional dyspepsia Plan: He says he presented to the ER at [facility] [place] for severe CP and GERD. He wanted to be sure he was not having a CO. With review of his medication he has run out of his reglan and this is the most likely cause. He also is not moving his bowels well, he was on bisacodyl because he was not convinced that the LInzess was working well.....but he was taking it qhs and not in the am. This was reviewed. Now he wants to go back to [employer] and we will start a 290. He DID note that his HB was worse when his sister served him full caff coffee. ROV 6 weeks (2) Chronic GERD: Code(s): K21.9 - Gastro-esophageal reflux disease without esophagitis (3) Chronic idiopathic constipation: Code(s): K59.04 - Chronic idiopathic constipation (4) Family history of colon cancer in mother: Comment: 08/2022 scope=hyperplastic polyp repeat in 5 years aeb Code(s): Z80.0 - Family history of malignant neoplasm of digestive organs Medications: New metoclopramide HCl (Reglan) 5 mg PO QIDACHS 1 20 tabs 6RF K30 - Functional d yspepsia linaclotide (Linze ss) First thing in the morning wi th a full glass of water 290 mcg PO QAM 30 days 30 caps 6RF Discontinued sucralfate (Carafa te) Discontinue d Reason: Doctor' s Order 1 g PO .before me als 60 tabs 0RF TODAY'S VISIT Patient was supposed to follow up in 6 weeks and this was in August 2023 so apparently he was lost follow-up for a small amount of time. He is moving his bowels well but is having more acid brash and severe abd bloating after eating. He feels like its gas because it carries up into my throat. He did not feel the reglan helped at 5mg, before we consider increase this I will get a GES and a trial of simethicone. He did not have any adverse effects from the metoclopramide. He continues on pantoprazole qd. He also continues on his Linzess 290 micro g. ROV 4 weeks. and after GES PFSH Medical History Delayed gastric emptying Back pain Neck pain Possible exposure to STD Tendinitis of left elbow Rash Fibroma of skin Obesity Screening for prostate cancer Adult general medical exam Diabetes mellitus with coincident hypertension Gout Sinusitis History of cardiac murmur Avascular necrosis of bone of hip Chronic GERD Sinus infection Diabetes mellitus Dysuria Diabetes COVID-19 Chronic GERD Cough Surgical History History of surgery on right wrist History of esophagogastroduodenoscopy (EGD) H/O colonoscopy H/O total hip arthroplasty H/O wrist surgery History of umbilical hernia repair History of wisdom tooth extraction History of tonsillectomy Family History Father No problems noted. Mother Colon cancer Diabetes Hypertension Family/Other Diabetes Hypertension Social History Housing: Apartment Alcohol intake: never Patient Tobacco Use Status: Never used Tobacco e-Cigarette/Vaping Use: Never Used Second Hand Smoke Exposure: Yes service: No Current occupational status: disabled Current occupational exposures/hazards: No Cognitive needs: No Hearing needs: No Vision needs: Yes Review of Systems Const Denies fatigue, Denies fever(s), Denies night sweats, Denies poor appetite and Denies weight loss ENT Reports Normal hearing present, Denies dental pain, Denies dysphagia, Denies hearing loss, Denies mouth pain, Denies odynophagia, Denies throat swelling, Denies tongue swelling and Reports other (Dentition adequate) Card Reports no additional complaints Resp Reports no additional complaints GI Details: Denies abdominal pain, Denies melena, Reports bloating, Denies hematochezia, Reports constipation, Denies GI cramping, Denies dysphagia, Denies excessive flatus, Reports early satiety, Reports heartburn, Denies diarrhea, Denies nausea, Denies odynophagia, Denies vomiting and Denies hematemesis Skin/Breast Denies pruritus, Denies lesions, Denies rash and Denies jaundice Neuro Reports Normal hearing present and Denies Abnormal speech present Endo Denies fatigue Aller/Immun Denies throat swelling and Denies tongue swelling Physical Exam Vital Signs: Last Vital Signs Pulse 65 12/21/23 10:56 BP 151/73 H 12/21/23 10:56 BMI result Body Mass Index 32.8 Const General: cooperative, no acute distress, well developed and well groomed Nutritional Appearance: well nourished and obese Orientation/consciousness: oriented to person, oriented to place and oriented to time Limitations: No language barrier HEENT Head: Yes normocephalic and Yes atraumatic Eyes General: appearance normal, both eyes and all related structures Pupils: Equal, round and reactive pupils present Neck Neck: Yes normal visual inspection and Yes no lymphadenopathy Thyroid: Thyroid normal Resp Effort & Inspection: normal respiratory effort and able to speak in complete sentences Auscultation: clear to auscultation bilaterally Cardio Rate: regular rate Rhythm: regular rhythm Heart sounds: Normal, physiologic split S2 sound present Peripheral pulses: radial pulses present and posterior tibial pulses present GI Inspection: Yes distended, No Abdominal panniculus present and Yes obesity Palpation (GI): Soft to palpation, nontender, no guarding, not rigid and No hepatosplenomegaly present Percussion: Yes normal to percussion Auscultation: normal bowel sounds Rectal Exam - Male: Yes deferred Skin General skin exam: no rashes or lesions noted, turgor normal, skin not dry, no jaundice, No spider nevi and no striae Rashes: no rashes Nails: normal Neuro General: oriented to person, oriented to place and oriented to time Cranial nerves: Yes Equal, round and reactive pupils present and Yes Normal hearing present Speech: No Abnormal speech present Extrem General: Yes normal to inspection, No clubbing, No cyanosis and No edema Psych Appearance: grossly normal and well kempt Mental Status: mental status grossly normal Speech and movement: Normal speech and movement present Affect: normal affect Attitude: cooperative Thought process: Normal thought process present and not confabulating Thought content: Normal thought content present Insight: Limited insight present (Psych) Judgement: Limited judgement present (Psych) Assessment & Plan Assessment & Plan (1) Chronic idiopathic constipation: Code(s): K59.04 - Chronic idiopathic constipation (2) Chronic GERD: Code(s): K21.9 - Gastro-esophageal reflux disease without esophagitis (3) Early satiety: Code(s): R68.81 - Early satiety (4) Abdominal bloating: Code(s): R14.0 - Abdominal distension (gaseous) Plan Patient was supposed to follow up in 6 weeks and this was in August 2023 so apparently he was lost follow-up for a small amount of time. He is moving his bowels well but is having more acid brash and severe abd bloating after eating. He feels like its gas because it carries up into my throat. He did not feel the reglan helped at 5mg, before we consider increase this I will get a GES and a trial of simethicone. He did not have any adverse effects from the metoclopramide. He continues on pantoprazole qd. He also continues on his Linzess 290 micro g. ROV 4 weeks. and after GES Orders: Orders NM gastric emptying study Today R14.0 - Abdominal distension (gaseous), R68.81 - Early satiety Medications: New simethicone after meals 180 mg PO QID 30 days 120 caps 3RF Refilled linaclotide (Linzess) First thing in the morning with a full glass of water 290 mcg PO QAM 30 days 30 caps 6RF pantoprazole (Protonix) 40 mg PO DAILY 30 days 30 tabs 6RF On Hold metoclopramide HCl (Reglan) Hold Comment: Doctor's Order 5 mg PO QIDACHS 120 tabs 6RF K30 - Functional dyspepsia Coding Level of Care Code Est Pt Level 3 (51614) Diagnoses Chronic idiopathic constipation K59.04 Chronic GERD K21.9 Early satiety R68.81 Abdominal bloating R14.0
[2023-12-21 10:56] VITALS: BP 151/73; PULSE 65; BMI 32.8
== END 2023-12-21 11:31 | disposition home or self-care (01) ==
PROVIDERS: PCP Internal Medicine; Visit Provider Nurse Practitioner
DX: K59.04 Chronic idiopathic constipation (principal); K21.9 Gastro-esophageal reflux disease without esophagitis; R68.81 Early satiety; R14.0 Abdominal distension (gaseous)
CPT/HCPCS: 99213

== ENCOUNTER → 2023-12-21 10:32 | Outpatient (BNVA) | payer OTHER, SELFPAY | PROVIDERS: PCP Internal Medicine; Visit Provider Nurse Practitioner | DX: K59.04 Chronic idiopathic constipation (principal); K21.9 Gastro-esophageal reflux disease without esophagitis; R68.81 Early satiety; R14.0 Abdominal distension (gaseous) | CPT/HCPCS: 99212 ==

== ENCOUNTER 2024-01-10 10:00 | Outpatient (RCR) | payer OTHER, SELFPAY ==
--- NOTE | 2023-12-28 13:53 | MHC.PT.EP ---
[employer] [employer] [place] [facility] [place] [facility] [place] [facility] [address] Mary Beth Shi [address] [phone] F: [phone] F: [phone] F: [phone] F: [phone] Physical Therapy Plan of Care Date of Evaluation: 12/26/23 Date of Surgery: Diagnosis: Cervicalgia, dorsalgia Assessment: Angel is a pleasant 48 yo male presenting to skilled physical therapy evaluation and treatment with c/o neck and back pain. Pt reports gradual onset constant tightness and ache through B upper back into neck. He reports intermittent shooting pain to B base of skull and occasional tension headaches around forehead. He denies recent injury or imaging. Upon evaluation, pt presents with pain, decreased cervical ROM, and significant periscapular tissue restriction. Pt demonstrates postural deficits contributing to decreased DNF and periscapular stability with general posterior tightness, which are exacerbated throughout mobility. All UE myotomes and dermatomes are WNL, indicating no significant nerve involvement at this time. Angel would benefit from skilled PT services to promote postural re-education, address muscular imbalances, and increase body mechanics for decreased pain with functional mobility. Pt is recommended to attend PT for 2x/week for 4 weeks. Frequency and Duration: The patient will be seen 2x/week for 4 weeks Short Term Goals: Pt will demonstrate independence with initial HEP through teach back method, showing proper compliance to PT Pt will be able to perform 15 consecutive supine chin tucks with proper DNF activation Pt will achieve pain free cervical ROM WNL, increasing tolerance to sleeping Long-Term Goals: Pt will report no shooting pain past base of skull for 1 consecutive week, indicating centralization of s/s Pt will demonstrate increased postural awareness, requiring no cues for proper form during periscapular stability exercises Pt will improve functional mobility as noted through statistically significant increase in modified oswestry outcome measure Treatment Plan: Modalities to reduce pain, spasms and effusion. Manual therapy to restore motion and function. Therapeutic exercise to improve strength and flexibility. Neuromuscular re-education for posture and balance. Therapeutic activities to return to functional activities of daily living. Electronically signed by: Delaney Hawkins, PT, DPT Please sign and return to therapist. Thank you for your referral.
--- NOTE | 2024-04-10 14:10 | MHC.PT.DC ---
[facility] Office [place] [facility] [place] Office [address] Mary Beth Shi [address] [phone] F: [phone] F: [phone] F: [phone] F: [phone] Physical Therapy Discharge Report Diagnosis: Cervicalgia, dorsalgia Date of Surgery: Date of Evaluation: 12/26/23 Date of Discharge: 04/10/24 Treatments to Date: 5 Cancellations to Date: 1 No Shows to Date: 1 Discharge Status: Discharge Summary: Pt was seen for PT from 12/26/23-01/10/24. His last attended appointment was 01/10/24. He had 1 cancellation and 1 no-show appointment for his last 2 scheduled appointments. He is being D/C from skilled PT as he has not attended or called to reschedule in > 30 days Electronically signed by: Delaney Hawkins, PT, DPT Please sign and return to therapist. Thank you for your referral.
== END 2024-04-10 14:09 | disposition home or self-care (01) ==
LOC: HO.PT 10:00
PROVIDERS: PCP Internal Medicine; Visit Provider Internal Medicine
DX: M54.2 Cervicalgia (principal); M54.9 Dorsalgia, unspecified
CPT/HCPCS: 97110; 97112; 97140; 97162; 97530

== ENCOUNTER → 2024-01-17 07:29 | Outpatient (REF) | payer OTHER, SELFPAY ==
--- NOTE | ~2024-01-17 | NM_ITS ---
EXAMINATION: NM RADIONUCLIDE SOLID FOOD GASTRIC EMPTYING 4-HOUR STUDY CLINICAL INFORMATION: Early satiety. COMPARISON: None TECHNIQUE: A standard meal consisting of 4 oz of Egg Beaters brand tagged with 780 microcuries Tc-99m Sulfur Colloid, 8 oz water and almost 2 slices of toast with jelly was administered orally to the patient. Images were obtained using a dual head gamma camera in the anterior and posterior projections over of the stomach immediately post ingestion and at hourly intervals up to 4 hours post ingestion. The anterior and posterior counts at each time interval were averaged using the geometric mean and expressed as percentage of the immediate post ingestion counts. FINDINGS: There is good visualization of activity in the stomach immediately post ingestion. As the study progresses, there is good clearance of activity from the stomach and visualization of progressively increasing small bowel activity. By the end of the study, there is almost no retention noted in the stomach. Retention in the stomach at each time interval was: 1 hour 70% (normal 37%-90%) 2 hours 23% (normal 30%-60%) 3 hours 3% 4 hours estimation was not performed since only 3% retention was noted at 3 hours interval. NM/NM gastric emptying study IMPRESSION: Normal 4-hour solid food gastric emptying study. For solid meal, rapid gastric emptying is less than 30% at 60 minutes. Delayed gastric emptying criteria is more than 60% remaining at 120 minutes or more than 10% at 240 minutes. The 4-hour value is the best discriminator of a normal or abnormal result). Gastric emptying study grading per JNMT Consensus Recommendations in 2008 (https://tech.snmjournals.org/content/36/1/44) Grade 1 (mild retention): 11-20% at 4h Grade 2 (moderate retention): 21-35% at 4h Grade 3 (severe retention): 36-50% at 4h Grade 4 (very severe retention): >50% retention at 4h
== END ==
LOC: HO.NUCMED 07:29
PROVIDERS: PCP Internal Medicine; Visit Provider Nurse Practitioner
DX: R68.81 Early satiety (principal); R14.0 Abdominal distension (gaseous)
CPT/HCPCS: 78264; A9541

== ENCOUNTER 2024-01-25 13:43 | Outpatient (AMB) | payer OTHER, SELFPAY ==
--- NOTE | 2024-01-25 13:52 | A.OFFVIS_ITS ---
Intake Vital Signs 01/25/24 14:14 Height 5 ft 9 in Weight 217 lb 13.067 oz BMI 32.2 BP 135/80 Blood Pressure Location Lt brachial Position Sitting Pulse 54 Pulse Source Pulse Oximeter Intake Visit Reasons: f/u GES Allergies lisinopril Allergy (Mild, Verified 01/25/24 14:16) Closed throat sulfamethoxazole [From Bactrim] Allergy (Mild, Verified 01/25/24 14:16) Rash trimethoprim [From Bactrim] Allergy (Mild, Verified 01/25/24 14:16) Rash fish derived [fish] Allergy (Unknown, Verified 01/25/24 14:16) Rash, Redness morphine [MORPHINE] Allergy (Unknown, Verified 01/25/24 14:16) Nausea and Vomiting Sulfa (Sulfonamide Antibiotics) Allergy (Unknown, Verified 01/25/24 14:16) rash Fish Containing Products Adverse Reaction (Unknown, Verified 01/25/24 14:16) Worsens Gout symptoms HPI f/u GES HPI Details Assessment & Plan (1) Chronic idiopathic constipation: Code(s): K59.04 - Chronic idiopathic constipation (2) Chronic GERD: Code(s): K21.9 - Gastro-esophageal reflux disease without esophagitis (3) Early satiety: Code(s): R68.81 - Early satiety (4) Abdominal bloating: Code(s): R14.0 - Abdominal distension (gaseous) Plan Patient was supposed to follow up in 6 weeks and this was in August 2023 so apparently he was lost follow-up for a small amount of time. He is moving his bowels well but is having more acid brash and severe abd bloating after eating. He feels like its gas because it carries up into my throat. He did not feel the reglan helped at 5mg, before we consider increase this I will get a GES and a trial of simethicone. He did not have any adverse effects from the metoclopramide. He continues on pantoprazole qd. He also continues on his Linzess 290 micro g. ROV 4 weeks. and after GES Orders: Orders NM gastric emptyin g study Today R14.0 - Abdominal distension (gaseou s), R68.81 - Early satiety Medications: New simethicone aft er meals 180 mg PO QID 30 days 120 caps 3RF Refilled linaclotide (Linze ss) First thing in the morning wi th a full glass of water 290 mcg PO QAM 30 days 30 caps 6RF pantoprazole (Prot javier) 40 mg PO DAILY 30 days 30 tabs 6RF On Hold metoclopramide HCl (Reglan) Hold Comment: Doctor's Order 5 mg PO QIDACHS 1 20 tabs 6RF K30 - Functional d yspepsia GASTRIC EMPTYING STUDY 01/17/24 MPRESSION: Normal 4-hour solid food gastric emptying study. TODAY'S VISIT He says he has completely changed his diet and his bloating is greatly improved. He stopped drinking coffee, stopped eating more salads and using Mrs Dash and avoiding [place] food and is using whole wheat bread adn almond mild instead of regular milk (? lactose intolerant). We will stop the reglan completely since his GES was normal and he has done well w/o it. He is also taking the simethicone tid with meals, so this could have an impact in his bloating as well. He continues on his Linzess, and pantoprazole along with the simthicone. ROV 3 mos. [facility] Medical History Delayed gastric emptying Back pain Neck pain Possible exposure to STD Tendinitis of left elbow Rash Fibroma of skin Obesity Screening for prostate cancer Adult general medical exam Diabetes mellitus with coincident hypertension Gout Sinusitis History of cardiac murmur Avascular necrosis of bone of hip Chronic GERD Sinus infection Diabetes mellitus Dysuria Diabetes COVID-19 Chronic GERD Cough Surgical History History of surgery on right wrist History of esophagogastroduodenoscopy (EGD) H/O colonoscopy H/O total hip arthroplasty H/O wrist surgery History of umbilical hernia repair History of wisdom tooth extraction History of tonsillectomy Family History Father No problems noted. Mother Colon cancer Diabetes Hypertension Family/Other Diabetes Hypertension Social History Housing: Apartment Alcohol intake: never Patient Tobacco Use Status: Never used Tobacco e-Cigarette/Vaping Use: Never Used Second Hand Smoke Exposure: Yes service: No Current occupational status: disabled Current occupational exposures/hazards: No Cognitive needs: No Hearing needs: No Vision needs: Yes Review of Systems Const Denies fatigue, Denies fever(s), Denies night sweats, Denies poor appetite and Denies weight loss ENT Reports Normal hearing present, Denies dental pain, Denies dysphagia, Denies hearing loss, Denies mouth pain, Denies odynophagia, Denies throat swelling, Denies tongue swelling and Reports other (Dentition adequate) Card Reports no additional complaints Resp Reports no additional complaints GI Details: Denies abdominal pain, Denies melena, Reports bloating, Denies hematochezia, Reports constipation, Denies GI cramping, Denies dysphagia, Denies excessive fl atus, Denies early satiety, Reports heartburn, Denies diarrhea, Denies nausea, Denies odynophagia, Denies vomiting and Denies hematemesis Skin/Breast Denies pruritus, Denies lesions, Denies rash and Denies jaundice Neuro Reports Normal hearing present and Denies Abnormal speech present Endo Denies fatigue Aller/Immun Denies throat swelling and Denies tongue swelling Physical Exam Vital Signs: Last Vital Signs Pulse 54 01/25/24 14:14 BP 135/80 01/25/24 14:14 BMI result Body Mass Index 32.2 Const General: cooperative, no acute distress, well developed and well groomed Nutritional Appearance: well nourished and obese Orientation/consciousness: oriented to person, oriented to place and oriented to time Limitations: No language barrier HEENT Head: Yes normocephalic and Yes atraumatic Eyes General: appearance normal, both eyes and all related structures Pupils: Equal, round and reactive pupils present Neck Neck: Yes normal visual inspection and Yes no lymphadenopathy Thyroid: Thyroid normal Resp Effort & Inspection: normal respiratory effort and able to speak in complete sentences Auscultation: clear to auscultation bilaterally Cardio Rate: regular rate Rhythm: regular rhythm Heart sounds: Normal, physiologic split S2 sound present Peripheral pulses: radial pulses present and posterior tibial pulses present GI Inspection: No distended, No Abdominal panniculus present and Yes obesity Palpation (GI): Soft to palpation, nontender, no guarding, not rigid and No hepatosplenomegaly present Percussion: Yes normal to percussion Auscultation: normal bowel sounds Rectal Exam - Male: Yes deferred Skin General skin exam: no rashes or lesions noted, turgor normal, skin not dry, no jaundice, No spider nevi and no striae Rashes: no rashes Nails: normal Neuro General: oriented to person, oriented to place and oriented to time Cranial nerves: Yes Equal, round and reactive pupils present and Yes Normal hearing present Speech: No Abnormal speech present Extrem General: Yes normal to inspection, No clubbing, No cyanosis and No edema Psych Appearance: grossly normal and well kempt Mental Status: mental status grossly normal Speech and movement: Normal speech and movement present Affect: normal affect Attitude: cooperative Thought process: Normal thought process present and not confabulating Thought content: Normal thought content present Insight: Fair insight present (Psych) Judgement: Fair judgement present (Psych) Results Reviewed Results Reviewed: GASTRIC EMPTYING STUDY 01/17/24 MPRESSION: Normal 4-hour solid food gastric emptying study. Assessment & Plan Assessment & Plan (1) Early satiety: Code(s): R68.81 - Early satiety (2) Abdominal bloating: Code(s): R14.0 - Abdominal distension (gaseous) (3) Chronic idiopathic constipation: Code(s): K59.04 - Chronic idiopathic constipation (4) Chronic GERD: Code(s): K21.9 - Gastro-esophageal reflux disease without esophagitis Plan He says he has completely changed his diet and his bloating is greatly improved. He stopped drinking coffee, stopped eating more salads and using Mrs Dash and avoiding [place] food and is using whole wheat bread adn almond mild instead of regular milk (? lactose intolerant). We will stop the reglan completely since his GES was normal and he has done well w/o it. He is also taking the simethicone tid with meals, so this could have an impact in his bloating as well. He continues on his Linzess, and pantoprazole along with the simthicone. ROV 3 mos. Medications: Discontinued metoclopramide HCl (Reglan) Discontinued Reason: Doctor's Order 5 mg PO QIDACHS 120 tabs 6RF K30 - Functional dyspepsia Coding Level of Care Code Est Pt Level 3 (29018) Diagnoses Early satiety R68.81 Abdominal bloating R14.0 Chronic idiopathic constipation K59.04 Chronic GERD K21.9
[2024-01-25 14:14] VITALS: BP 135/80; PULSE 54; BMI 32.2
== END 2024-01-25 14:22 | disposition home or self-care (01) ==
PROVIDERS: PCP Internal Medicine; Visit Provider Nurse Practitioner
DX: R68.81 Early satiety (principal); R14.0 Abdominal distension (gaseous); K59.04 Chronic idiopathic constipation; K21.9 Gastro-esophageal reflux disease without esophagitis
CPT/HCPCS: 99213

== ENCOUNTER → 2024-01-25 13:43 | Outpatient (BNVA) | payer OTHER, SELFPAY | PROVIDERS: PCP Internal Medicine; Visit Provider Nurse Practitioner | DX: R68.81 Early satiety (principal); R14.0 Abdominal distension (gaseous); K59.04 Chronic idiopathic constipation; K21.9 Gastro-esophageal reflux disease without esophagitis | CPT/HCPCS: 99212 ==

== ENCOUNTER 2024-01-28 15:22 | Emergency (ER) | payer OTHER, SELFPAY ==
[2024-01-28 16:15] VITALS: BP 142/75; PULSE 59; RESP 18; TEMP 36.8; O2SAT 96; BMI 31.7
--- NOTE | 2024-01-28 16:16 | ED.GENADULT ---
HPI - General Adult General Chief complaint: General Medical Stated complaint: sore throat Time Seen by Provider: 01/28/24 17:45 Source: patient Mode of arrival: ambulatory Limitations: no limitations History of Present Illness HPI narrative: 48 year old male with pmhx significant for HTN, diabetes with delayed gastric emptying, GERD, seronegative rheumatoid arthritis, constipation and BPH presents to the ED today for evaluation of throat pain x3 days. States he believes this is due to his acid reflux. He currently sees a GI doctor and states that his medications are not working for him. He takes omeprazole daily. He has tried lifestyle and diet changes without resolution. He has not had difficulty controlling secretions however does have some pain with swallowing. He denies any other symptoms of fever, chills, ear pain, chest pain, shortness of breath, dyspnea, difficulty controlling secretions, abdominal pain, nausea or vomiting. Denies known sick contacts. Denies any other concerns at present. Vaccinations are up-to-date. Related Data Home Medications Medication Instructions Recorded Confirmed multivitamin (Daily Multi-Vitamin 1 tab PO DAILY 04/06/23 12/19/23 tablet) Previous Rx's Medication Instructions Recorded blood sugar diagnostic (OneTouch #100 ea 05/25/23 Ultra Test strips) blood-glucose meter (Easy-Touch #1 ea 05/25/23 Blood Glucose Meter) blood-glucose meter (OneTouch #1 ea 05/25/23 Ultra2 Meter) lancets 30 gauge (OneTouch #100 ea 05/25/23 UltraSoft 2 Lancet) ibuprofen 600 mg tablet 600 mg PO TID PRN pain #14 tabs 07/14/23 blood sugar diagnostic (FreeStyle #100 ea 08/31/23 Lite Strips) blood-glucose meter (FreeStyle #1 ea 08/31/23 Lite Meter kit) lancets 28 gauge (FreeStyle #100 ea 08/31/23 Lancets) valsartan 80 mg tablet 80 mg PO DAILY #90 tabs 11/02/23 cyclobenzaprine 5 mg tablet 5 mg PO TID PRN muscle spasm 7 12/05/23 days #21 tabs linaclotide 290 mcg capsule 290 mcg PO QAM 30 days #30 caps 12/21/23 (Linzess) pantoprazole 40 mg tablet,delayed 40 mg PO DAILY 30 days #30 tabs 12/21/23 release (Protonix) simethicone 180 mg capsule 180 mg PO QID 30 days #120 caps 12/21/23 glipizide 5 mg tablet 5 mg PO DAILY #90 tabs 01/23/24 phenol 1.5 %-glycerin 33 % mucosal 1 spray mucous membrane Q6-8H PRN 01/28/24 spray (Chloraseptic Max Sore sore throat #118 mL Throat) Allergies Allergy/AdvReac Type Severity Reaction Status Date / Time lisinopril Allergy Mild Closed Verified 01/28/24 16:19 throat sulfamethoxazole Allergy Mild Rash Verified 01/28/24 16:19 [From Bactrim] trimethoprim [From Bactrim] Allergy Mild Rash Verified 01/28/24 16:19 fish derived [fish] Allergy Unknown Rash, Verified 01/28/24 16:19 Redness morphine [MORPHINE] Allergy Unknown Nausea and Verified 01/28/24 16:19 Vomiting Sulfa (Sulfonamide Allergy Unknown rash Verified 01/28/24 16:19 Antibiotics) Fish Containing Products AdvReac Unknown Worsens Verified 01/28/24 16:19 Gout symptoms Review of Systems Review of Systems: Constitutional: No fever, chills, fatigue, night sweats, weight changes ENT/Mouth: No ear pain, hearing loss, nasal congestion, sinus pain, rhinorrhea, +sore throat, +odynophagia, No dysphagia Eyes: No eye pain, swelling, redness, vision changes, discharge Cardio: No chest pain, palpitations, LEMONS, orthopnea, peripheral edema Pulm: No SOB, cough, sputum, wheezing, dyspnea, hemoptysis GI: No nausea, vomiting, hematemesis, abdominal pain, diarrhea, constipation, hematochezia, melena : No irregular bleeding, dysuria, frequency, urgency, hesitancy, hematuria, flank pain MSK: No back pain, neck pain, joint pain, myalgias Skin: No lesions, rashes Neuro: No weakness, numbness, paresthesias, LOC, dizziness, headache All other systems reviewed and are negative. [facility] Past Medical History Attestation statement: The following information was validated with the patient. Source: old records reviewed and nursing notes reviewed Medical History Delayed gastric emptying Back pain Neck pain Possible exposure to STD Tendinitis of left elbow Rash Fibroma of skin Obesity Screening for prostate cancer Adult general medical exam Diabetes mellitus with coincident hypertension Gout Sinusitis History of cardiac murmur Avascular necrosis of bone of hip Chronic GERD Sinus infection Diabetes mellitus Dysuria Diabetes COVID-19 Chronic GERD Cough Surgical History History of surgery on right wrist History of esophagogastroduodenoscopy (EGD) H/O colonoscopy H/O total hip arthroplasty H/O wrist surgery History of umbilical hernia repair History of wisdom tooth extraction History of tonsillectomy Family History Family History Father No problems noted. Mother Colon cancer Diabetes Hypertension Family/Other Diabetes Hypertension Social History Social History Housing: Apartment Alcohol intake: never Patient Tobacco Use Status: Never used Tobacco e-Cigarette/Vaping Use: Never Used Second Hand Smoke Exposure: Yes Advance Directives: No Advance Directives Information Provided: No service: No Current occupational status: disabled Current occupational exposures/hazards: No Cognitive needs: No Hearing needs: No Vision needs: Yes Physical Exam ED Vital Signs: Vital Signs - 24 hr 01/28/24 16:15 Temperature 98.3 F Pulse Rate 59 Respiratory Rate 18 Blood Pressure 142/75 H Pulse Oximetry 96 Oxygen Delivery Method Room Air BMI result Body Mass Index 31.7 Hypertensive, afebrile Const General: cooperative, healthy appearing, comfortable, no acute distress, alert and awake Orientation/consciousness: patient oriented x3 Limitations: no limitations HENMT Other: + posterior oropharynx without erythema or edema, uvula is midline, no tonsilar exudates or peritonsillar masses, controlling secretions and speaking in complete sentences. Head: Yes normal to inspection, Yes normocephalic and Yes atraumatic Ears: hearing grossly normal bilaterally, external ears normal, TM's normal bilaterally, EAC's normal, mastoids normal and no periauricular adenopathy General nose exam: Normal external nose present and No nasal discharge present Face and sinus: Yes normal facial exam and Yes sinuses nontender Eyes General: appearance normal, both eyes and all related structures Conjunctivae: conjunctivae normal Sclerae: sclerae normal Pupils: Equal, round and reactive pupils present Neck Other: + no cervical, submandibular or submental LAD. Neck: Yes normal visual inspection and Yes full ROM Resp Effort & Inspection: normal respiratory effort and able to speak in complete sentences Auscultation: clear to auscultation bilaterally Cardio Rate: regular rate Rhythm: regular rhythm Skin General skin exam: no rashes or lesions noted Neuro General: patient oriented x3, gait normal and moves all extremities Cranial nerves: Yes Equal, round and reactive pupils present Extrem General: Yes normal to inspection Course Course Course Narrative: This is a rapid medical exam: Additional HPI, ROS, PE not included below will be deferred to primary provider. Patient is a 48-year-old male with history of GERD presenting to the ED with complaint of sore throat for 3 days. Unsure if related to GERD/allergies. Plan: viral and strep swabs Reevaluation(s) Reevaluation #1: 1800-- patient has tested negative for COVID, flu, RSV, strep throat. Exam is not consistent with strep throat. Centor criteria 0. Discomfort is likely from his chronic GERD. Will give 1 dose of viscous lidocaine in ED and send him home with Chloraseptic spray. Advised him to follow up with his GI doctor. Patient has remained stable throughout ED visit today. Discussed worrisome signs and symptoms and when to return to the ED. All questions answered at this time. Patient is agreeable with disposition and stable for discharge. Medical Decision Making Medical Decision Making [facility] Narrative: 48 year old male with pmhx significant for HTN, diabetes with delayed gastric emptying, GERD, seronegative rheumatoid arthritis, constipation and BPH presents to the ED today for evaluation of throat pain x3 days. Patient hypertensive. Afebrile. He is nontoxic appearing in no acute distress. Speaking in full complete sentences. Posterior oropharynx without erythema or edema. No tonsillar exudates. No peritonsillar masses. Uvula midline. Controlling secretions. Anterior chest wall nontender to palpation. No crepitus. Lungs CTA bilaterally. Bilateral EACs WNL. Differential diagnosis includes strep throat, viral syndrome, GERD. Low suspicion for mono, [employer], retropharyngeal abscess, epiglottitis, acute respiratory distress or airway compromise. Plan for viral serology and strep swabs. Differential Diagnosis Differential Diagnoses: The differential diagnosis associated with the presentation includes as above Admission/Observation not indicated Lab Data [facility] Lab Attestation statement: I reviewed the patient's lab results. as above Labs: Lab Results 01/28/24 Range/Units 16:25 Influenza Type A (PCR) NEGATIVE (Negative) Influenza Type B (PCR) NEGATIVE (Negative) RSV RNA Qual (PCR) NEGATIVE (Negative) SARS-CoV-2 RNA (RT-PCR) NEGATIVE (Negative) S. pyogenes GrpA ASHLEY Negative (Negative) External Record Review External record reviewed: Inpatient record, Office record, Outpatient record, Prior outpatient labs, Prior outpatient radiology, Primary care record and Outside ED record Prescription Management I considered prescription management with: Pain Medication Chronic Conditions Patient?s care impacted by: Other (GERD) Social Determinants Patient?s care significantly limited by Social Determinants of Health including: Other Social Determinant of Health Critical Care Time Critical Care Time Critical Care Time: No Discharge Plan Discharge Clinical Impression: Sore throat, Chronic GERD Patient Disposition: Home, Self-Care Instructions: Gastroesophageal Reflux Disease (ED), Indigestion (ED) Additional Instructions: You were evaluated in the ED today for throat pain. You tested negative for COVID, flu, RSV, strep throat. Your exam is not consistent with infection. You were given a dose of viscous Lido in ED today. Chloraseptic throat spray has been sent to your pharmacy. Use this as needed for throat pain. Please follow-up with your GI doctor. You have also been provided with a referral to a new GI doctor. You may call them to make an appointment. They will not call you. Continue all home medications as prescribed If symptoms persist or worsen please return to the ED. In the case of an emergency call 911. [facility] [place] Gastroenterology: [phone] Prescriptions: New Chloraseptic Max Sore Throat 1.5-33 % spray,non-aerosol 1 spray mucous membrane Q6-8H PRN (Reason: sore throat) Qty: 118 0RF Rx Instructions: leave on area for 15 seconds then spit out No Action (DME) blood-glucose meter [Easy-Touch Blood Glucose Meter] [facility] [place] See Rx Instructions .Route Qty: 1 0RF Rx Instructions: As directed (DME) blood-glucose meter [OneTouch Ultra2 Meter] [facility] [place] See Rx Instructions .Route Qty: 1 0RF Rx Instructions: test once daily (DME) OneTouch Ultra Test Strip See Rx Instructions .Route Qty: 100 8RF Rx Instructions: test once daily (DME) lancets [OneTouch UltraSoft 2 Lancet] 30 gauge misc See Rx Instructions .Route Qty: 100 8RF Rx Instructions: test once daily (DME) blood-glucose meter [FreeStyle Lite Meter] Kit See Rx Instructions .ROUTE .MEDSUPPLY Qty: 1 0RF Rx Instructions: As directed (DME) FreeStyle Lite Strips Strip See Rx Instructions .ROUTE .MEDSUPPLY Qty: 100 12RF Rx Instructions: As directed once a day (DME) lancets [FreeStyle Lancets] 28 gauge misc See Rx Instructions .ROUTE .MEDSUPPLY Qty: 100 12RF Rx Instructions: As directed once a day valsartan 80 mg tablet 80 mg PO DAILY Qty: 90 1RF glipizide 5 mg tablet 5 mg PO DAILY Qty: 90 8RF cyclobenzaprine 5 mg tablet 5 mg PO TID PRN (Reason: muscle spasm) 7 Days Qty: 21 0RF ibuprofen 600 mg tablet 600 mg PO TID PRN (Reason: pain) Qty: 14 0RF multivitamin [Daily Multi-Vitamin] Tablet 1 tab PO DAILY simethicone 180 mg capsule 180 mg PO QID 30 Days Qty: 120 3RF Rx Instructions: after meals Linzess 290 mcg capsule 290 mcg PO QAM 30 Days Qty: 30 6RF Rx Instructions: First thing in the morning with a full glass of water pantoprazole [Protonix] 40 mg tablet,delayed release (DR/EC) 40 mg PO DAILY 30 Days Qty: 30 6RF Referrals: [facility] [place] Gastroenterology Services [Provider Group]
[2024-01-28 16:44] LABS: IDNOW Serial# 08D9AD1C
[2024-01-28 16:45] LABS: Strep A Nucleic Acid Negative (Negative)
[2024-01-28 17:09] LABS: Influenza A PCR NEGATIVE (Negative); Influenza B PCR NEGATIVE (Negative); Resp Syncy Virus RNA Qual PCR NEGATIVE (Negative); SARS COV2 PCR INHOUSE NEGATIVE (Negative)
[2024-01-28] MEDS: Lidocaine HCl Viscous 2 % 15 ML SOLUTION MUCOUS MEM (18:26)
[2024-01-28] MEDS: Magnesium Hydrox/Alum Hydrox 30 ML ORAL.SUSP PO (18:34)
[2024-01-28] MEDS: Famotidine 20 MG TABLET PO (18:34)
[2024-01-28 18:42] VITALS: BP 132/70; PULSE 58; RESP 18; TEMP 36.7
== END 2024-01-28 18:42 | disposition home or self-care (01) ==
PROVIDERS: Registered Nurse Emergency; Emergency Provider Internal Medicine; PCP Internal Medicine
DX: K21.9 Gastro-esophageal reflux disease without esophagitis (principal); J02.9 Acute pharyngitis, unspecified; I10 Essential (primary) hypertension; E11.9 Type 2 diabetes mellitus without complications; Z79.899 Other long term (current) drug therapy; Z11.52 Encounter for screening for COVID-19; Z20.828 Contact with and (suspected) exposure to other viral communicable diseases
CPT/HCPCS: 0241U; 87651; 99282; 99283

== ENCOUNTER 2024-02-14 07:40 | Outpatient (REF) | payer OTHER, SELFPAY ==
[2024-02-14 07:58] LABS: MANUAL DIFF FLAG NO
[2024-02-14 08:36] LABS: Basophils Percent Auto 0.5 % (0-2); Eosinophils Absolute Auto 0.1 X10*3/uL (0.0-0.4); Eosinophils Percent Auto 1.3 % (0-4); Hematocrit 42.1 % (42.0-52.0); Hemoglobin 14.3 g/dl (14.0-18.0); Imm Gran Abs Auto 0.01 X10*3/uL (0.00-0.03); Imm Gran Pct Auto 0.1 % (0.0-0.4); Lymphocytes Absolute Auto 3.3 X10*3/uL (1.2-4.9); Lymphocytes Percent Auto 40.1 % (20-40); Mean Corpuscular Hemoglobin 28.5 pg (27.0-33.0); Mean Corpuscular Volume 83.9 fL (80.0-98.0); Mean Platelet Volume 10.5 fL (9.4-12.4); Monocytes Absolute Auto 0.5 X10*3/uL (0.1-1.2); Monocytes Percent Auto 6.5 % (2-11); Neutrophils Absolute Auto 4.2 x10*3/uL (2.0-8.3); Neutrophils Percent Auto 51.5 % (45-73); Platelet Count 262 X10*3/uL (160-400); Red Blood Count 5.02 X10*6/uL (4.60-5.80); Red Cell Distribution Width 13.2 % (11.0-16.0); White Blood Count 8.3 X10*3/uL (4.8-10.8)
[2024-02-14 08:50] LABS: Estimated Average Glucose 143 mg/dL; Hemoglobin A1c % 6.6 % (<6.0)
[2024-02-14 09:06] LABS: Alanine Aminotransferase 19 U/L (0-40); Alkaline Phosphatase 62 U/L (39-117); Anion Gap 10 (12-20); Aspartate Amino Transferase 19 U/L (5-37); Bilirubin Total 0.5 mg/dL (0.0-1.0); Blood Urea Nitrogen 14 mg/dL (9-16); Calcium 9.3 mg/dL (8.4-10.2); Carbon Dioxide 30 mmol/L (22-29); Chloride 107 mmol/L (96-108); Cholesterol 190 mg/dL (<200); Estimated Glomerular Filt Rate > 60; Glucose Fasting 118 mg/dL (60-99); HDL Cholesterol 37 mg/dL (>40); LDL Cholesterol Calculated 117 mg/dL (<100); Potassium 3.9 mmol/L (3.3-5.1); Sodium 143 mmol/L (135-145); Total Protein 7.3 g/dL (6.5-8.0); Triglycerides 182 mg/dL (<150)
[2024-02-14 10:03] LABS: Creatinine Urine 272.03 mg/dL; Microalbum/Creatinine Ratio Ur 4.4 ug/mg cr (<30)
== END 2024-02-14 07:41 | disposition home or self-care (01) ==
LOC: HO.LAB 07:40
PROVIDERS: PCP Internal Medicine; Visit Provider Internal Medicine
DX: E11.69 Type 2 diabetes mellitus with other specified complication (principal); E11.65 Type 2 diabetes mellitus with hyperglycemia; N28.9 Disorder of kidney and ureter, unspecified; D64.9 Anemia, unspecified; E66.01 Morbid (severe) obesity due to excess calories; E78.5 Hyperlipidemia, unspecified
CPT/HCPCS: 36415; 80053; 80061; 82043; 82570; 83036; 85025

== ENCOUNTER 2024-02-14 12:51 | Outpatient (AMB) | payer OTHER, SELFPAY ==
[2024-02-14 12:52] VITALS: BP 128/84; PULSE 67; O2SAT 97; BMI 30.8
--- NOTE | 2024-02-14 12:52 | A.OFFPC_ITS ---
Vital Signs 02/14/24 12:52 Height 5 ft 10 in Weight 215 lb BMI 30.8 BP 128/84 Blood Pressure Location Lt brachial Position Sitting Pulse 67 Pulse Source Pulse Oximeter Pulse Oximetry (%) 97 Oxygen Delivery Method Room Air Intake Visit Reasons: Annual Exam Intake Note: pt is here for a physical and is requesting a referral to Gastroenterology and a food allergy test Rags Laborer Required: No Activities Officer: Not Required per policy Accompanied by: Self / Same As Patient Allergies lisinopril Allergy (Mild, Verified 02/14/24 12:53) Closed throat sulfamethoxazole [From Bactrim] Allergy (Mild, Verified 02/14/24 12:53) Rash trimethoprim [From Bactrim] Allergy (Mild, Verified 02/14/24 12:53) Rash fish derived [fish] Allergy (Unknown, Verified 02/14/24 12:53) Rash, Redness morphine [MORPHINE] Allergy (Unknown, Verified 02/14/24 12:53) Nausea and Vomiting Sulfa (Sulfonamide Antibiotics) Allergy (Unknown, Verified 02/14/24 12:53) rash Fish Containing Products Adverse Reaction (Unknown, Verified 02/14/24 12:53) Worsens Gout symptoms Medication List - Last Reconciled 02/15/24 by Da Eckert MD blood sugar diagnostic (OneTouch Ultra Test strips) test once daily blood sugar diagnostic (FreeStyle Lite Strips) As directed once a day blood-glucose meter (OneTouch Ultra2 Meter) test once daily blood-glucose meter (Easy-Touch Blood Glucose Meter) As directed blood-glucose meter (FreeStyle Lite Meter kit) As directed glipizide 5 mg PO DAILY lancets (OneTouch UltraSoft 2 Lancet) test once daily lancets (FreeStyle Lancets) As directed once a day multivitamin (Daily Multi-Vitamin tablet) 1 tab PO DAILY pantoprazole (Protonix) 40 mg PO DAILY 30 days phenol-glycerin 1.5-33 % (Chloraseptic Max Sore Throat) 1 spray mucous membrane Q6-8H PRN valsartan 80 mg PO DAILY Tobacco use date assessed: 12/16/23 Dental Screening Dental Screen Date: 02/14/24 Did you have a dental visit in the last 12 months?: Yes Did you have a dental problem in the last 6 months where you did not have access to dental care?: No Was dental information given to patient?: Patient has dentist HPI Annual Exam HPI Details DM HTN and GERD; doing well and compliant [facility] Medical History (Updated 02/15/24 @ 08:35 by Da Eckert MD) Physical exam Delayed gastric emptying Back pain Neck pain Possible exposure to STD Tendinitis of left elbow Rash Fibroma of skin Obesity Screening for prostate cancer Adult general medical exam Diabetes mellitus with coincident hypertension Gout Sinusitis History of cardiac murmur Avascular necrosis of bone of hip Chronic GERD Sinus infection Diabetes mellitus Dysuria Diabetes COVID-19 Chronic GERD Cough Surgical History History of surgery on right wrist History of esophagogastroduodenoscopy (EGD) H/O colonoscopy H/O total hip arthroplasty H/O wrist surgery History of umbilical hernia repair History of wisdom tooth extraction History of tonsillectomy Family History Father No problems noted. Mother Colon cancer Diabetes Hypertension Family/Other Diabetes Hypertension Social History Housing: Apartment Alcohol intake: never Patient Tobacco Use Status: Never used Tobacco e-Cigarette/Vaping Use: Never Used Second Hand Smoke Exposure: Yes service: No Current occupational status: disabled Current occupational exposures/hazards: No Cognitive needs: No Hearing needs: No Vision needs: Yes Questionnaire PHQ-9 Over the last 2 weeks, how often have you been bothered by any of the following problems? 1. Little interest or pleasure in doing things: several days 2. Feeling down, depressed, or hopeless: several days 3. Trouble falling or staying asleep, or sleeping too much: not at all 4. Feeling tired or having little energy: several days 5. Poor appetite or overeating: several days 6. Feeling bad about yourself - or that you are a failure or have let yourself or your family down: several days 7. Trouble concentrating on things, such as reading the newspaper or watching television: not at all 8. Moving or speaking so slowly that other people could have noticed. Or the opposite - being so fidgety or restless that you have been moving around a lot more than usual: not at all 9. Thoughts that you would be better off or of hurting yourself in some way: not at all Total score: 5 Depression Screening Interpretation: Positive Depression Screening Done: Yes 34141 - PHQ-9 Billing: Yes Source: Developed by Drs. Xavier Blackman, Jossy Puente, Gaurav Ruano and colleagues, with an educational dread from [place] [employer]. Thrive Questionnaire Date Thrive assessed: 12/16/23 MICHAEL-7 AMB Questionnaire MICHAEL-7 Date MICHAEL - 7 assessed: 12/16/23 Source: Developed by Drs. Xavier Blackman, Jossy Puente, Gaurav Ruano and colleagues, with an educational dreda from [employer] [employer]. Review of Systems Const Denies chills, Denies fatigue, Denies headache(s) and Denies weight loss Eyes Denies change in vision, Denies diplopia and Denies eye pain ENT Denies vertigo, Denies dizziness, Denies headache(s) and Denies nasal discharge Card Denies chest pain, Denies rapid heart rate and Denies dyspnea on exertion Resp Denies chest congestion, Denies cough, Denies pain with cough and Denies dyspnea on exertion GI Denies abdominal pain, Denies hematochezia and Denies change in bowel habits Musc Denies myalgias, Denies arthralgias and Denies joint swelling Skin/Breast Denies lesions and Denies unusual bruising Neuro Denies vertigo, Denies dizziness, Denies headache(s) and Denies focal weakness Endo Denies fatigue Physical exam (Primary Care) Vital Signs: Last Vital Signs Pulse 67 02/14/24 12:52 BP 128/84 02/14/24 12:52 Pulse Ox 97 02/14/24 12:52 Oxygen Delivery Method Room Air 02/14/24 12:52 BMI result Body Mass Index 30.8 Tobacco/Smoking Status: Tobacco use Status Tobacco use date assessed 12/16/23 02/14/24 12:54 Patient Tobacco Use Status Never used Tobacco 02/14/24 12:54 e-Cigarette/Vaping Use Never Used 02/14/24 12:54 PHQ-9: PHQ-9 Score PHQ-9: Total score 5 02/14/24 13:03 Depression Screening Interpretation: Positive Thrive Assessment: Date of Thrive Assessment Date Thrive assessed 12/16/23 02/14/24 12:54 Const General: cooperative, healthy appearing and no acute distress Orientation/consciousness: oriented to person, oriented to place and oriented to time HENMT Head: Yes normal to inspection, Yes normocephalic and Yes atraumatic Mouth: Normal oral and palatal mucosa present and tongue normal Throat: Yes posterior oropharynx normal and Yes uvula midline Eyes General: appearance normal, both eyes and all related structures Neck Neck: Yes normal visual inspection, Yes full ROM and Yes no lymphadenopathy Thyroid: Thyroid normal Carotids: normal carotid upstroke Chest Chest palpation & inspection: normal inspection of the chest Resp Effort & Inspection: normal respiratory effort and able to speak in complete sentences Auscultation: clear to auscultation bilaterally Cardio Jugular venous distension: no JVD Palpation: normal PMI Rate: regular rate Rhythm: regular rhythm Heart sounds: S1 normal heart sound present and S2 normal heart sound present GI Inspection: Yes normal to inspection Palpation (GI): Soft to palpation and No hepatosplenomegaly present Auscultation: normal bowel sounds General: Yes no CVA tenderness Back/Spine/Pelvis Back: no CVA tenderness Skin General skin exam: no rashes or lesions noted Neuro General: oriented to person, oriented to place and oriented to time Extrem General: Yes normal to inspection and Yes full ROM Assessment and Plan Assessment & Plan (1) Physical exam: Code(s): Z00.00 - Encounter for general adult medical examination without abnormal findings Plan: do labs (2) Diabetes mellitus: Code(s): E11.9 - Type 2 diabetes mellitus without complications Plan: stable; same rx (3) Chronic GERD: Code(s): K21.9 - Gastro-esophageal reflux disease without esophagitis Plan: stable; same rx (4) Hypertension: Code(s): I10 - Essential (primary) hypertension Plan: stable; same rx Orders: Orders Lipid Panel Today E78.5 - Hyperlipidemia, unspecified Thyroid Stimulating Hormone Today E03.9 - Hypothyroidism, unspecified Hemoglobin A1c Today R73.9 - Hyperglycemia, unspecified Complete Blood Count Auto Diff Today D64.9 - Anemia, unspecified Comprehensive [place]. Panel Fast Today N28.9 - Disorder of kidney and ureter, unspecified Microalbumin, Random (w Creat) Today E11.69 - Type 2 diabetes mellitus with other specified complication, E66.01 - Morbid (severe) obesity due to excess calories Referrals Gastroenterology Referral K21.9 - Gastro-esophageal reflux disease without esophagitis Coding Level of Care Code Est Pt Prev Care 40-64y(95135) Diagnoses Physical exam Z00.00 Diabetes mellitus E11.9 Chronic GERD K21.9 Hypertension I10
== END 2024-02-14 13:09 | disposition home or self-care (01) ==
PROVIDERS: Visit Provider Internal Medicine
DX: Z00.00 Encounter for general adult medical examination without abnormal findings (principal); E11.9 Type 2 diabetes mellitus without complications; K21.9 Gastro-esophageal reflux disease without esophagitis; I10 Essential (primary) hypertension
CPT/HCPCS: 99396

== ENCOUNTER 2024-03-14 06:55 | Outpatient (REF) | payer OTHER, SELFPAY ==
[2024-03-14 07:08] LABS: MANUAL DIFF FLAG NO
[2024-03-14 07:34] LABS: Basophils Percent Auto 0.5 % (0-2); Eosinophils Absolute Auto 0.1 X10*3/uL (0.0-0.4); Eosinophils Percent Auto 1.2 % (0-4); Hematocrit 44.5 % (42.0-52.0); Hemoglobin 15.1 g/dl (14.0-18.0); Imm Gran Abs Auto 0.02 X10*3/uL (0.00-0.03); Imm Gran Pct Auto 0.2 % (0.0-0.4); Lymphocytes Absolute Auto 3.2 X10*3/uL (1.2-4.9); Lymphocytes Percent Auto 37.5 % (20-40); Mean Corpuscular HGB Conc 33.9 g/dl (31.0-36.0); Mean Corpuscular Hemoglobin 28.3 pg (27.0-33.0); Mean Corpuscular Volume 83.5 fL (80.0-98.0); Mean Platelet Volume 10.5 fL (9.4-12.4); Monocytes Absolute Auto 0.5 X10*3/uL (0.1-1.2); Monocytes Percent Auto 6.2 % (2-11); Neutrophils Absolute Auto 4.7 x10*3/uL (2.0-8.3); Neutrophils Percent Auto 54.4 % (45-73); Platelet Count 265 X10*3/uL (160-400); Red Blood Count 5.33 X10*6/uL (4.60-5.80); Red Cell Distribution Width 13.1 % (11.0-16.0); White Blood Count 8.6 X10*3/uL (4.8-10.8)
[2024-03-14 07:42] LABS: Estimated Average Glucose 143 mg/dL; Hemoglobin A1c % 6.6 % (<6.0)
[2024-03-14 08:10] LABS: Alanine Aminotransferase 29 U/L (0-40); Albumin Level 4.3 g/dL (3.5-5.0); Alkaline Phosphatase 55 U/L (39-117); Anion Gap 14 (12-20); Aspartate Amino Transferase 20 U/L (5-37); Bilirubin Total 0.6 mg/dL (0.0-1.0); Blood Urea Nitrogen 20 mg/dL (9-16); Calcium 9.6 mg/dL (8.4-10.2); Carbon Dioxide 27 mmol/L (22-29); Chloride 103 mmol/L (96-108); Cholesterol 217 mg/dL (<200); Estimated Glomerular Filt Rate > 60; Glucose Fasting 136 mg/dL (60-99); HDL Cholesterol 45 mg/dL (>40); LDL Cholesterol Calculated 135 mg/dL (<100); Potassium 3.8 mmol/L (3.3-5.1); Sodium 140 mmol/L (135-145); Total Protein 7.6 g/dL (6.5-8.0); Triglycerides 189 mg/dL (<150)
[2024-03-14 08:20] LABS: Thyroid Stimulating Hormone 2.25 uIU/mL (0.32-4.0)
[2024-03-14 09:51] LABS: Creatinine Urine 148.25 mg/dL
== END 2024-03-14 06:56 | disposition home or self-care (01) ==
LOC: HO.LAB 06:55
PROVIDERS: PCP Internal Medicine; Visit Provider Internal Medicine
DX: E78.5 Hyperlipidemia, unspecified (principal); E03.9 Hypothyroidism, unspecified; D64.9 Anemia, unspecified; E11.69 Type 2 diabetes mellitus with other specified complication; E66.01 Morbid (severe) obesity due to excess calories; N28.9 Disorder of kidney and ureter, unspecified; E11.65 Type 2 diabetes mellitus with hyperglycemia
CPT/HCPCS: 36415; 80053; 80061; 82043; 82570; 83036; 84443; 85025

== ENCOUNTER 2024-03-15 09:34 | Outpatient (AMB) | payer OTHER, SELFPAY ==
[2024-03-15 09:38] VITALS: BP 132/76; PULSE 59; O2SAT 97; BMI 31.1
--- NOTE | 2024-03-15 09:38 | MHC.PC.OV ---
Vital Signs 03/15/24 09:38 Height 5 ft 10 in Weight 217 lb BMI 31.1 BP 132/76 Blood Pressure Location Lt brachial Position Sitting Pulse 59 Pulse Source Pulse Oximeter Pulse Oximetry (%) 97 Oxygen Delivery Method Room Air Intake Visit Reasons: 3mth f/u Supervisor Underwriting Clerks Required: No Nuclear Instructor: Not Required per policy Accompanied by: Self / Same As Patient Allergies lisinopril Allergy (Mild, Verified 03/15/24 09:39) Closed throat sulfamethoxazole [From Bactrim] Allergy (Mild, Verified 03/15/24 09:39) Rash trimethoprim [From Bactrim] Allergy (Mild, Verified 03/15/24 09:39) Rash fish derived [fish] Allergy (Unknown, Verified 03/15/24 09:39) Rash, Redness morphine [MORPHINE] Allergy (Unknown, Verified 03/15/24 09:39) Nausea and Vomiting Sulfa (Sulfonamide Antibiotics) Allergy (Unknown, Verified 03/15/24 09:39) rash Fish Containing Products Adverse Reaction (Unknown, Verified 03/15/24 09:39) Worsens Gout symptoms Medication List - Last Reconciled 03/15/24 by Da Eckert MD blood sugar diagnostic (OneTouch Ultra Test strips) test once daily blood sugar diagnostic (FreeStyle Lite Strips) As directed once a day blood-glucose meter (OneTouch Ultra2 Meter) test once daily blood-glucose meter (Easy-Touch Blood Glucose Meter) As directed blood-glucose meter (FreeStyle Lite Meter kit) As directed glipizide 5 mg PO DAILY lancets (OneTouch UltraSoft 2 Lancet) test once daily lancets (FreeStyle Lancets) As directed once a day multivitamin (Daily Multi-Vitamin tablet) 1 tab PO DAILY pantoprazole (Protonix) 40 mg PO DAILY 30 days valsartan 80 mg PO DAILY Tobacco use date assessed: 12/16/23 Dental Screening Dental Screen Date: 02/14/24 HPI 3mth f/u HPI Details DM and HTN on rx; doing well; A1C 6.6 PFSH Medical History (Updated 02/15/24 @ 08:35 by Da Eckert MD) Physical exam Delayed gastric emptying Back pain Neck pain Possible exposure to STD Tendinitis of left elbow Rash Fibroma of skin Obesity Screening for prostate cancer Adult general medical exam Diabetes mellitus with coincident hypertension Gout Sinusitis History of cardiac murmur Avascular necrosis of bone of hip Chronic GERD Sinus infection Diabetes mellitus Dysuria Diabetes COVID-19 Chronic GERD Cough Surgical History History of surgery on right wrist History of esophagogastroduodenoscopy (EGD) H/O colonoscopy H/O total hip arthroplasty H/O wrist surgery History of umbilical hernia repair History of wisdom tooth extraction History of tonsillectomy Family History Father No problems noted. Mother Colon cancer Diabetes Hypertension Family/Other Diabetes Hypertension Social History Housing: Apartment Alcohol intake: never Patient Tobacco Use Status: Never used Tobacco e-Cigarette/Vaping Use: Never Used Second Hand Smoke Exposure: Yes service: No Current occupational status: disabled Current occupational exposures/hazards: No Cognitive needs: No Hearing needs: No Vision needs: Yes Questionnaire Thrive Questionnaire Date Thrive assessed: 12/16/23 MICHAEL-7 AMB Questionnaire MICHAEL-7 Date MICHAEL - 7 assessed: 12/16/23 Source: Developed by Drs. Xavier Blackman, Jossy Puente, Gaurav Ruano and colleagues, with an educational dread from [employer]. Review of Systems Const Denies chills, Denies headache(s) and Denies weight loss ENT Denies headache(s) Card Denies chest pain, Denies syncope, Denies irregular heart rhythm and Denies dyspnea Resp Denies chest congestion, Denies cough and Denies dyspnea GI Denies abdominal pain, Denies change in stool character, Denies nausea and Denies vomiting Musc Denies deformity and Denies joint swelling Neuro Denies syncope and Denies headache(s) Physical exam (Primary Care) Vital Signs: Last Vital Signs Pulse 59 03/15/24 09:38 BP 132/76 03/15/24 09:38 Pulse Ox 97 03/15/24 09:38 Oxygen Delivery Method Room Air 03/15/24 09:38 BMI result Body Mass Index 31.1 Tobacco/Smoking Status: Tobacco use Status Tobacco use date assessed 12/16/23 03/15/24 09:39 Patient Tobacco Use Status Never used Tobacco 03/15/24 09:39 e-Cigarette/Vaping Use Never Used 03/15/24 09:39 Thrive Assessment: Date of Thrive Assessment Date Thrive assessed 12/16/23 03/15/24 09:39 Const General: cooperative, comfortable, no acute distress and alert Neck Neck: Yes no lymphadenopathy Thyroid: Thyroid normal Resp Effort & Inspection: normal respiratory effort Auscultation: clear to auscultation bilaterally Percussion: percussion normal Cardio Jugular venous distension: no JVD Palpation: normal PMI Rate: regular rate Rhythm: regular rhythm Heart sounds: S1 normal heart sound present and S2 normal heart sound present GI Inspection: Yes normal to inspection Palpation (GI): No hepatosplenomegaly present Skin General skin exam: no rashes or lesions noted Extrem General: Yes no clubbing, cyanosis or edema Assessment and Plan Assessment & Plan (1) Diabetes mellitus: Code(s): E11.9 - Type 2 diabetes mellitus without complications Plan: stable; same rx (2) Hypertension: Code(s): I10 - Essential (primary) hypertension Plan: stable; same rx Orders: Orders Lipid Panel Today Z13.220 - Encounter for screening for lipoid disorders Glucose Fasting Today R73.9 - Hyperglycemia, unspecified Hemoglobin A1c Today R73.9 - Hyperglycemia, unspecified Coding Level of Care Code Est Pt Level 3 (82041) Diagnoses Diabetes mellitus E11.9 Hypertension I10
== END 2024-03-15 09:56 | disposition home or self-care (01) ==
PROVIDERS: PCP Internal Medicine; Visit Provider Internal Medicine
DX: E11.9 Type 2 diabetes mellitus without complications (principal); I10 Essential (primary) hypertension
CPT/HCPCS: 99213

== ENCOUNTER 2024-04-03 14:05 | Outpatient (REF) | payer OTHER, SELFPAY ==
[2024-04-05 11:09] LABS: Immunoglobulin A 226 mg/dL (47-310); Transglutaminase IgA <1.0 U/mL
== END 2024-04-03 14:06 | disposition home or self-care (01) ==
LOC: HO.LAB 14:05
PROVIDERS: PCP Internal Medicine; Visit Provider Internal Medicine
DX: R14.0 Abdominal distension (gaseous) (principal)
CPT/HCPCS: 36415; 82784; 86364

== ENCOUNTER 2024-06-15 07:21 | Outpatient (REF) | payer OTHER, SELFPAY ==
[2024-06-15 07:33] LABS: MANUAL DIFF FLAG NO
[2024-06-15 07:49] LABS: Basophils Percent Auto 0.5 % (0-2); Eosinophils Absolute Auto 0.1 X10*3/uL (0.0-0.4); Eosinophils Percent Auto 1.5 % (0-4); Hemoglobin 14.3 g/dl (14.0-18.0); Imm Gran Abs Auto 0.01 X10*3/uL (0.00-0.03); Imm Gran Pct Auto 0.1 % (0.0-0.4); Lymphocytes Absolute Auto 3.2 X10*3/uL (1.2-4.9); Lymphocytes Percent Auto 43.7 % (20-40); Mean Corpuscular Hemoglobin 28.4 pg (27.0-33.0); Mean Corpuscular Volume 83.5 fL (80.0-98.0); Mean Platelet Volume 10.1 fL (9.4-12.4); Monocytes Absolute Auto 0.6 X10*3/uL (0.1-1.2); Monocytes Percent Auto 7.4 % (2-11); Neutrophils Absolute Auto 3.5 x10*3/uL (2.0-8.3); Neutrophils Percent Auto 46.8 % (45-73); Platelet Count 240 X10*3/uL (160-400); Red Blood Count 5.03 X10*6/uL (4.60-5.80); Red Cell Distribution Width 13.2 % (11.0-16.0); White Blood Count 7.4 X10*3/uL (4.8-10.8)
[2024-06-15 08:17] LABS: Alanine Aminotransferase 20 U/L (0-40); Albumin Level 4.4 g/dL (3.5-5.0); Alkaline Phosphatase 59 U/L (39-117); Anion Gap 11 (12-20); Aspartate Amino Transferase 18 U/L (5-37); Bilirubin Total 0.7 mg/dL (0.0-1.0); Blood Urea Nitrogen 17 mg/dL (9-16); C Reactive Protein 0.43 mg/dL (< or = 0.50); Calcium 10.3 mg/dL (8.4-10.2); Carbon Dioxide 30 mmol/L (22-29); Chloride 103 mmol/L (96-108); Cholesterol 229 mg/dL (<200); Estimated Glomerular Filt Rate > 60; Glucose Fasting 152 mg/dL (60-99); Glucose Random 150 mg/dL (60-115); HDL Cholesterol 42 mg/dL (>40); LDL Cholesterol Calculated 147 mg/dL (<100); Sodium 140 mmol/L (135-145); Total Protein 7.4 g/dL (6.5-8.0); Triglycerides 203 mg/dL (<150)
[2024-06-15 08:27] LABS: Erythrocyte Sedimentation Rate 4 MM/HR (0-15)
[2024-06-15 09:27] LABS: Estimated Average Glucose 157 mg/dL; Hemoglobin A1c % 7.1 % (<6.0)
== END 2024-06-15 07:22 | disposition home or self-care (01) ==
LOC: HO.LAB 07:21
PROVIDERS: Student in an Organized Health Care Education/Training Program; PCP Internal Medicine; Visit Provider Internal Medicine
DX: Z13.220 Encounter for screening for lipoid disorders (principal); Z13.6 Encounter for screening for cardiovascular disorders; R73.9 Hyperglycemia, unspecified; M06.00 Rheumatoid arthritis without rheumatoid factor, unspecified site
CPT/HCPCS: 36415; 80053; 80061; 82947; 83036; 85025; 85652; 86140

== ENCOUNTER 2024-06-15 09:39 | Outpatient (AMB) | payer OTHER, SELFPAY ==
--- NOTE | 2024-06-15 09:42 | A.OFFPC_ITS ---
Vital Signs 06/15/24 09:43 Height 5 ft 10 in Weight 219 lb BMI 31.4 BP 136/80 Blood Pressure Location Lt brachial Position Sitting Pulse 64 Pulse Source Pulse Oximeter Pulse Oximetry (%) 96 Oxygen Delivery Method Room Air Intake Visit Reasons: 3mth f/u Natural Gas Shothole Driller Required: No Allergies lisinopril Allergy (Mild, Verified 06/15/24 09:45) Closed throat sulfamethoxazole [From Bactrim] Allergy (Mild, Verified 06/15/24 09:45) Rash trimethoprim [From Bactrim] Allergy (Mild, Verified 06/15/24 09:45) Rash fish derived [fish] Allergy (Unknown, Verified 06/15/24 09:45) Rash, Redness morphine [MORPHINE] Allergy (Unknown, Verified 06/15/24 09:45) Nausea and Vomiting Sulfa (Sulfonamide Antibiotics) Allergy (Unknown, Verified 06/15/24 09:45) rash Fish Containing Products Adverse Reaction (Unknown, Verified 06/15/24 09:45) Worsens Gout symptoms Tobacco use date assessed: 12/16/23 Dental Screening Dental Screen Date: 02/14/24 HPI 3mth f/u HPI Details DM on rx; doing well and compliant; A1C improved PFSH Medical History (Updated 02/15/24 @ 08:35 by Da Eckert MD) Physical exam Delayed gastric emptying Back pain Neck pain Possible exposure to STD Tendinitis of left elbow Rash Fibroma of skin Obesity Screening for prostate cancer Adult general medical exam Diabetes mellitus with coincident hypertension Gout Sinusitis History of cardiac murmur Avascular necrosis of bone of hip Chronic GERD Sinus infection Diabetes mellitus Dysuria Diabetes COVID-19 Chronic GERD Cough Surgical History History of surgery on right wrist History of esophagogastroduodenoscopy (EGD) H/O colonoscopy H/O total hip arthroplasty H/O wrist surgery History of umbilical hernia repair History of wisdom tooth extraction History of tonsillectomy Family History Father No problems noted. Mother Colon cancer Diabetes Hypertension Family/Other Diabetes Hypertension Social History Housing: Apartment Alcohol intake: never Patient Tobacco Use Status: Never used Tobacco e-Cigarette/Vaping Use: Never Used Second Hand Smoke Exposure: Yes service: No Current occupational status: disabled Current occupational exposures/hazards: No Cognitive needs: No Hearing needs: No Vision needs: Yes Questionnaire Thrive Questionnaire Date Thrive assessed: 12/16/23 AUDIT C Alcohol Use Questionnaire (AUDIT-C) 1. How often do you have a drink containing alcohol?: Never Total Score: 0 Score Reviewed/Action Taken: Yes MICHAEL-7 AMB Questionnaire MICHAEL-7 Date MICHAEL - 7 assessed: 12/16/23 Source: Developed by Drs. Xavier Blackman, Jossy Puente, Gaurav Ruano and colleagues, with an educational dread from [email or web address]. Review of Systems Const Denies chills, Denies headache(s) and Denies weight loss ENT Denies headache(s) Card Denies chest pain, Denies syncope, Denies irregular heart rhythm and Denies dyspnea Resp Denies chest congestion, Denies cough and Denies dyspnea GI Denies abdominal pain, Denies change in stool character, Denies nausea and Denies vomiting Musc Denies deformity and Denies joint swelling Neuro Denies syncope and Denies headache(s) Physical exam (Primary Care) Vital Signs: Last Vital Signs Pulse 64 06/15/24 09:43 BP 136/80 06/15/24 09:43 Pulse Ox 96 06/15/24 09:43 Oxygen Delivery Method Room Air 06/15/24 09:43 BMI result Body Mass Index 31.4 Tobacco/Smoking Status: Tobacco use Status Tobacco use date assessed 12/16/23 06/15/24 09:42 Patient Tobacco Use Status Never used Tobacco 06/15/24 09:42 e-Cigarette/Vaping Use Never Used 06/15/24 09:42 Thrive Assessment: Date of Thrive Assessment Date Thrive assessed 12/16/23 06/15/24 09:42 Const General: cooperative, comfortable, no acute distress and alert Neck Neck: Yes no lymphadenopathy Thyroid: Thyroid normal Resp Effort & Inspection: normal respiratory effort Auscultation: clear to auscultation bilaterally Percussion: percussion normal Cardio Jugular venous distension: no JVD Palpation: normal PMI Rate: regular rate Rhythm: regular rhythm Heart sounds: S1 normal heart sound present and S2 normal heart sound present GI Inspection: Yes normal to inspection Palpation (GI): No hepatosplenomegaly present Skin General skin exam: no rashes or lesions noted Extrem General: Yes no clubbing, cyanosis or edema Results AMB Hemoglobin A1c AMB Hemoglobin A1c 7.3 % Last Edit by WOODY Jones on 06/15/24 09:51 Results Reviewed Results Reviewed: Laboratory Last Values Hgb A1c (Clinic) 7.3 % (4.0-6.0) H 06/15/24 08:19 Assessment and Plan Assessment & Plan (1) Diabetes mellitus: Code(s): E11.9 - Type 2 diabetes mellitus without complications Plan: stable ;same rx Orders: Orders Glucose Fasting Today R73.9 - Hyperglycemia, unspecified Hemoglobin A1c Today R73.9 - Hyperglycemia, unspecified AMB Hemoglobin A1c Today E11.9 - Type 2 diabetes mellitus without complications Lipid Panel Today Z13.220 - Encounter for screening for lipoid disorders Coding Level of Care Code Est Pt Level 3 (97707) Diagnoses Diabetes mellitus E11.9
[2024-06-15 09:43] VITALS: BP 136/80; PULSE 64; O2SAT 96; BMI 31.4
== END 2024-06-15 09:57 | disposition home or self-care (01) ==
PROVIDERS: PCP Internal Medicine; Visit Provider Internal Medicine
DX: E11.9 Type 2 diabetes mellitus without complications (principal)
CPT/HCPCS: 83036; 99213

== ENCOUNTER 2024-07-04 08:21 | Day surgery (SDC) | payer OTHER, SELFPAY ==
[2024-07-02 13:54] VITALS: BMI 30.6
[2024-07-04 10:48] VITALS: BMI 31.6
[2024-07-04 11:03] VITALS: BP 195/92; PULSE 59; RESP 14; TEMP 36.5; O2SAT 99
--- NOTE | 2024-07-04 11:05 | HO.ANESPROP2 ---
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 Mother Colon cancer Diabetes Hypertension Family/Other Diabetes Hypertension Family history of problems with anesthesia: No Surgical History Surgical History History of surgery on right wrist History of esophagogastroduodenoscopy (EGD) H/O colonoscopy H/O total hip arthroplasty H/O wrist surgery History of umbilical hernia repair History of wisdom tooth extraction History of tonsillectomy History of Problems with Anesthesia: No Social History Social History Housing: Apartment Alcohol intake: never Patient Tobacco Use Status: Never used Tobacco e-Cigarette/Vaping Use: Never Used Second Hand Smoke Exposure: Yes Use of substances other than those prescribed or required for medical reasons: No Have you been hit, kicked, punched, or otherwise hurt by someone within the past year? If so, by whom?: No Are you DNR?: No Advance Directives: No Advance Directives Information Provided: Yes Recently lost weight without trying: No service: No Current occupational status: disabled Current occupational exposures/hazards: No Cognitive needs: No Hearing needs: No Vision needs: Yes Meds Allergies Allergy/AdvReac Type Severity Reaction Status Date / Time lisinopril Allergy Mild Closed Verified 07/04/24 10:43 throat sulfamethoxazole Allergy Mild Rash Verified 07/04/24 10:43 [From Bactrim] trimethoprim [From Bactrim] Allergy Mild Rash Verified 07/04/24 10:43 fish derived [fish] Allergy Unknown Rash, Verified 07/04/24 10:43 Redness morphine [MORPHINE] Allergy Unknown Nausea and Verified 07/04/24 10:43 Vomiting Sulfa (Sulfonamide Allergy Unknown rash Verified 07/04/24 10:43 Antibiotics) Fish Containing Products AdvReac Unknown Worsens Verified 07/04/24 10:43 Gout symptoms Home Medications ?Medication ?Instructions ?Recorded ?Confirmed ?Last Taken ?Type multivitamin (Daily Multi-Vitamin 1 tab PO DAILY 04/06/23 07/04/24 Unknown History tablet) Exam Height,Weight and Vital Signs: Height 5 ft 10 in Weight 96.672 kg Pertinent Lab Results Pertinent Lab Results: Laboratory Tests 06/15/24 07:31 WBC 7.4 Hgb 14.3 Hct 42.0 Plt Count 240 Sodium 140 Potassium 4.0 Chloride 103 Carbon Dioxide 30 H BUN 17 H Creatinine 0.99 Assessment and Plan Assessment Anesthesia Assessment: Chart Reviewed Final Anesthetic Review Family History of Problems with Anesthesia: No History of Problems with Anesthesia: No Documented by User: Iris Coreas DO 07/04/24 11:09 [facility] Past Medical History Medical History Physical exam Delayed gastric emptying Back pain Neck pain Possible exposure to STD Tendinitis of left elbow Rash Fibroma of skin Obesity Screening for prostate cancer Adult general medical exam Diabetes mellitus with coincident hypertension Gout Sinusitis History of cardiac murmur Avascular necrosis of bone of hip Chronic GERD Sinus infection Diabetes mellitus Dysuria Diabetes COVID-19 Chronic GERD Cough Family History Family History Father No problems noted. Mother Colon cancer Diabetes Hypertension Family/Other Diabetes Hypertension Family history of problems with anesthesia: No Surgical History Surgical History History of surgery on right wrist History of esophagogastroduodenoscopy (EGD) H/O colonoscopy H/O total hip arthroplasty H/O wrist surgery History of umbilical hernia repair History of wisdom tooth extraction History of tonsillectomy History of Problems with Anesthesia: No Social History Social History Housing: Apartment Alcohol intake: never Patient Tobacco Use Status: Never used Tobacco e-Cigarette/Vaping Use: Never Used Second Hand Smoke Exposure: Yes Use of substances other than those prescribed or required for medical reasons: No Have you been hit, kicked, punched, or otherwise hurt by someone within the past year? If so, by whom?: No Are you DNR?: No Advance Directives: No Advance Directives Information Provided: Yes Recently lost weight without trying: No service: No Current occupational status: disabled Current occupational exposures/hazards: No Cognitive needs: No Hearing needs: No Vision needs: Yes Meds Allergies Allergy/AdvReac Type Severity Reaction Status Date / Time lisinopril Allergy Mild Closed Verified 07/04/24 10:43 throat sulfamethoxazole Allergy Mild Rash Verified 07/04/24 10:43 [From Bactrim] trimethoprim [From Bactrim] Allergy Mild Rash Verified 07/04/24 10:43 fish derived [fish] Allergy Unknown Rash, Verified 07/04/24 10:43 Redness morphine [MORPHINE] Allergy Unknown Nausea and Verified 07/04/24 10:43 Vomiting Sulfa (Sulfonamide Allergy Unknown rash Verified 07/04/24 10:43 Antibiotics) Fish Containing Products AdvReac Unknown Worsens Verified 07/04/24 10:43 Gout symptoms Home Medications ?Medication ?Instructions ?Recorded ?Confirmed ?Last Taken ?Type multivitamin (Daily Multi-Vitamin 1 tab PO DAILY 04/06/23 07/04/24 Unknown History tablet) Exam Exam Date and Time: July 04, 2024 1107 Height,Weight and Vital Signs: Height 5 ft 10 in Weight 96.672 kg Vital Signs Temperature 97.7 F 07/04/24 11:03 Pulse Rate 59 07/04/24 11:03 Respiratory Rate 14 07/04/24 11:03 Blood Pressure 195/92 H 07/04/24 11:03 Pulse Oximetry 99 07/04/24 11:03 Oxygen Delivery Method Room Air 07/04/24 11:03 Temperature 97.7 F 07/04/24 11:03 Pulse Rate 59 07/04/24 11:03 Respiratory Rate 14 07/04/24 11:03 Blood Pressure 195/92 H 07/04/24 11:03 Pulse Oximetry 99 07/04/24 11:03 Oxygen Delivery Method Room Air 07/04/24 11:03 Airway Mallampati Class: II TM Dist: <=3cm Neck ROM: Full Loose/Missing/Broken Teeth: No (patient denies any loose or broken teeth) Heart: S1S2 Lungs: CTAB Assessment and Plan Assessment Anesthesia Assessment: Anesthesia Plan Discussed and Chart Reviewed Final Anesthetic Review Family History of Problems with Anesthesia: No History of Problems with Anesthesia: No NPO: Yes ASA Class: III Final Preanesthetic Review: No Changes in Pt Med Stat, Meds/Allgs Chart Reviewed, Consent Obtained/Reviewed and Anes Risks/Benef Reviewed Patient Risk: Intermediate Procedure Risk: Low Anesthetic Plan Anesthetic Plan: MAC: and Agree w/ Assess. and Plan Disposition: Standard PACU
[2024-07-04] MEDS: Lactated Ringers 1,000 ML 100 ML IVCONT (11:06)
[2024-07-04 11:14] LABS: Glucose, Whole Blood 127 mg/dL (60-115)
[2024-07-04 11:50] VITALS: BP 117/72; PULSE 61; RESP 16; TEMP 36.7; O2SAT 96
--- NOTE | 2024-07-04 11:55 | P.BOP_ITS ---
Brief Operative Note Date of Service: 07/04/24 Pre-op diagnosis: GERD Post-op diagnosis: other (Hiatal hernia) Procedure: EGD with biopsies Surgeon: Xavier Nam MD Anesthesia: MAC Was an Lithographic Stripper used for this Procedure?: No Estimated blood loss (mL): 2.0 Pathology: other (A, Descending duodenum B. Gastric antrum C. EG Junction at 39cm) Condition: stable Disposition: PACU
[2024-07-04 12:05] VITALS: BP 142/96; PULSE 55; RESP 16; O2SAT 96
--- NOTE | 2024-07-04 12:14 | OP_ITS ---
DATE OF SERVICE: 07/04/2024 SURGEON: Xavier Nam MD INDICATIONS: The patient presents for evaluation of chronic gastroesophageal reflux, abdominal bloating, and abdominal discomfort. Full consent has been obtained from him for this, including risks of bleeding and perforation. PREOPERATIVE DIAGNOSIS: POSTOPERATIVE DIAGNOSIS: PROCEDURE PERFORMED: Esophagogastroduodenoscopy with biopsies. ESTIMATED BLOOD LOSS: COMPLICATIONS: ANESTHESIA: Monitored anesthesia care. ASSISTANTS: SPECIMENS: PREOPERATIVE DIAGNOSES: Gastroesophageal reflux, abdominal bloating and abdominal discomfort. POSTOPERATIVE DIAGNOSES: Gastroesophageal reflux, abdominal bloating, abdominal discomfort, rule out celiac disease, rule out Helicobacter pylori, small hiatal hernia, rule out Duque esophagus. DESCRIPTION OF PROCEDURE: The patient was placed in the left lateral decubitus position. The Olympus video gastroscope was passed in the posterior oropharynx and upper esophagus under direct vision. The scope was passed slowly into the distal esophagus. The gastroesophageal junction appeared at 39 cm. There was some very slight irregularity, consistent with reflux, but no evidence of any esophagitis nor any definitive evidence of Duque mucosa. There was a small hiatal hernia. The scope was advanced to pylorus and the duodenum was cannulated to the descending portion. The duodenum including the bulb appeared normal without mass or ulceration. Biopsies were obtained from the 2nd and 3rd portions of duodenum. The scope was withdrawn back to the stomach. The gastric antrum and body appeared normal with good peristalsis. Biopsies were obtained from the gastric antrum. The scope was retroflexed, visualizing the proximal stomach carefully, which appeared normal, without any sign of mass or ulceration. The scope was straightened and withdrawn back in the esophagus. Biopsies were obtained at the EG junction at 39 cm. Proximal to this, the esophageal mucosa appeared normal. The scope was withdrawn from patient. He tolerated the procedure well and was returned to recovery area in stable condition. IMPRESSION: 1. Small hiatal hernia, gastroesophageal reflux. 2. Rule out Duque esophagus. 3. Rule out Helicobacter pylori. 4. Rule out celiac disease. PLAN: The results of biopsies will be checked. He will continue with pantoprazole either daily or as needed for reflux symptoms. He was reminded to stay on a careful and healthy diet to minimize reflux symptoms. He will otherwise see me on a p.r.n. basis. MD NAKUL Butler/MICAH / [id number]
[2024-07-04 12:20] VITALS: BP 147/91; PULSE 55; RESP 18; TEMP 36.6; O2SAT 97
== END 2024-07-04 12:45 | disposition home or self-care (01) ==
PROVIDERS: PCP Internal Medicine; Visit Provider Internal Medicine
PROC: 0DJ08ZZ Inspection of Upper Intestinal Tract, Via Natural or Artificial Opening Endoscopic (ICD-10-PCS; CPT 43235; principal; 2024-07-04 10:20)
DX: R14.0 Abdominal distension (gaseous) (principal); R10.9 Unspecified abdominal pain; K21.9 Gastro-esophageal reflux disease without esophagitis; K44.9 Diaphragmatic hernia without obstruction or gangrene; I10 Essential (primary) hypertension; E11.9 Type 2 diabetes mellitus without complications; Z79.84 Long term (current) use of oral hypoglycemic drugs; Z79.899 Other long term (current) drug therapy; Z88.8 Allergy status to other drugs, medicaments and biological substances
CPT/HCPCS: 43239; 82947; 88305; 88313; 88342; J1596; J2704

== ENCOUNTER 2024-09-17 06:05 | Outpatient (REF) | payer OTHER, SELFPAY ==
[2024-09-17 08:05] LABS: Estimated Average Glucose 146 mg/dL; Hemoglobin A1C 186.7792 umol/L; Hemoglobin A1c % 6.7 % (<6.0); Total Hemoglobin (HGBA1C) 3753.4682 umol/L
[2024-09-17 08:31] LABS: Cholesterol 212 mg/dL (<200); Glucose Fasting 138 mg/dL (60-99); HDL Cholesterol 43 mg/dL (>40); LDL Cholesterol Calculated 135 mg/dL (<100); Triglycerides 173 mg/dL (<150)
== END 2024-09-17 06:06 | disposition home or self-care (01) ==
LOC: HO.LAB 06:05
PROVIDERS: PCP Internal Medicine; Visit Provider Internal Medicine
DX: R73.9 Hyperglycemia, unspecified (principal); Z13.220 Encounter for screening for lipoid disorders; I10 Essential (primary) hypertension; Z13.0 Encounter for screening for diseases of the blood and blood-forming organs and certain disorders involving the immune mechanism; Z79.4 Long term (current) use of insulin
CPT/HCPCS: 36415; 80061; 82947; 83036; 99212

== ENCOUNTER 2024-09-17 08:14 | Outpatient (AMB) | payer OTHER, SELFPAY ==
--- NOTE | 2024-09-17 08:31 | A.OFFPC_ITS ---
Vital Signs 09/17/24 08:32 Height 5 ft 10 in Weight 214 lb 8 oz BMI 30.8 BP 142/78 H Blood Pressure Location Lt brachial Position Sitting Pulse 49 L Pulse Source Pulse Oximeter Pulse Oximetry (%) 97 Oxygen Delivery Method Room Air Intake Visit Reasons: 3mth f/u Intake Note: Patient is here to follow up on DM, BPH, HTN. Pt decline flu shot today. 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: Not Required per policy Accompanied by: Self / Same As Patient Allergies lisinopril Allergy (Mild, Verified 09/17/24 08:32) Closed throat sulfamethoxazole [From Bactrim] Allergy (Mild, Verified 09/17/24 08:32) Rash trimethoprim [From Bactrim] Allergy (Mild, Verified 09/17/24 08:32) Rash fish derived [fish] Allergy (Unknown, Verified 09/17/24 08:32) Rash, Redness morphine [MORPHINE] Allergy (Unknown, Verified 09/17/24 08:32) Nausea and Vomiting Sulfa (Sulfonamide Antibiotics) Allergy (Unknown, Verified 09/17/24 08:32) rash Fish Containing Products Adverse Reaction (Unknown, Verified 09/17/24 08:32) Worsens Gout symptoms Medication List - Last Reconciled 09/17/24 by Da Eckert MD blood sugar diagnostic (FreeStyle Lite Strips) As directed once a day blood-glucose meter (FreeStyle Lite Meter kit) As directed glipizide 5 mg PO DAILY lancets (FreeStyle Lancets) As directed once a day multivitamin (Daily Multi-Vitamin tablet) 1 tab PO DAILY pantoprazole (Protonix) 40 mg PO DAILY 30 days valsartan 80 mg PO DAILY Tobacco use date assessed: 09/17/24 Dental Screening Dental Screen Date: 02/14/24 HPI 3mth f/u HPI Details HTN on Rx; doing well; compliant [facility] Medical History Physical exam Delayed gastric emptying Back pain Neck pain Possible exposure to STD Tendinitis of left elbow Rash Fibroma of skin Obesity Screening for prostate cancer Adult general medical exam Diabetes mellitus with coincident hypertension Gout Sinusitis History of cardiac murmur Avascular necrosis of bone of hip Chronic GERD Sinus infection Diabetes mellitus Dysuria Diabetes COVID-19 Chronic GERD Cough Surgical History History of surgery on right wrist History of esophagogastroduodenoscopy (EGD) H/O colonoscopy H/O total hip arthroplasty H/O wrist surgery History of umbilical hernia repair History of wisdom tooth extraction History of tonsillectomy Family History Father No problems noted. Mother Colon cancer Diabetes Hypertension Family/Other Diabetes Hypertension Social History Housing: Apartment Alcohol intake: never Patient Tobacco Use Status: Never used Tobacco e-Cigarette/Vaping Use: Never Used Second Hand Smoke Exposure: Yes service: No Current occupational status: disabled Current occupational exposures/hazards: No Cognitive needs: No Hearing needs: No Vision needs: Yes Questionnaire Thrive Questionnaire Date Thrive assessed: 12/16/23 MICHAEL-7 AMB Questionnaire MICHAEL-7 Date MICHAEL - 7 assessed: 12/16/23 Source: Developed by Drs. Xavier Blackman, Jossy Puente, Gaurav Ruano and colleagues, with an educational dread from [employer]. Review of Systems Const Denies chills, Denies headache(s) and Denies weight loss ENT Denies headache(s) Card Denies chest pain, Denies syncope, Denies irregular heart rhythm and Denies dyspnea Resp Denies chest congestion, Denies cough and Denies dyspnea GI Denies abdominal pain, Denies change in stool character, Denies nausea and Denies vomiting Musc Denies deformity and Denies joint swelling Neuro Denies syncope and Denies headache(s) Physical exam (Primary Care) Vital Signs: Last Vital Signs Pulse 49 L 09/17/24 08:32 BP 142/78 H 09/17/24 08:32 Pulse Ox 97 09/17/24 08:32 Oxygen Delivery Method Room Air 09/17/24 08:32 BMI result Body Mass Index 30.8 Tobacco/Smoking Status: Tobacco use Status Tobacco use date assessed 09/17/24 09/17/24 08:38 Patient Tobacco Use Status Never used Tobacco 09/17/24 08:38 e-Cigarette/Vaping Use Never Used 09/17/24 08:38 Thrive Assessment: Date of Thrive Assessment Date Thrive assessed 12/16/23 09/17/24 08:38 Const General: cooperative, comfortable, no acute distress and alert Neck Neck: Yes no lymphadenopathy Thyroid: Thyroid normal Resp Effort & Inspection: normal respiratory effort Auscultation: clear to auscultation bilaterally Percussion: percussion normal Cardio Jugular venous distension: no JVD Palpation: normal PMI Rate: regular rate Rhythm: regular rhythm Heart sounds: S1 normal heart sound present and S2 normal heart sound present GI Inspection: Yes normal to inspection Palpation (GI): No hepatosplenomegaly present Skin General skin exam: no rashes or lesions noted Extrem General: Yes no clubbing, cyanosis or edema Coding Level of Care Code Est Pt Level 3 (99299) Diagnoses Hypertension I10 Assessment & Plan Assessment & Plan (1) Hypertension: Code(s): I10 - Essential (primary) hypertension Category: Medical Plan: stable; same rx Orders: Orders Hemoglobin A1c Today R73.9 - Hyperglycemia, unspecified Lipid Panel Today Z13.220 - Encounter for screening for lipoid disorders Complete Blood Count Auto Diff Today Z13.0 - Encounter for screening for diseases of the blood and blood-forming organs and certain disorders involving the immune mechanism Comprehensive [place]. Panel Fast Today Z13.9 - Encounter for screening, unspecified Referrals Podiatry Referral E11.9 - Type 2 diabetes mellitus without complications Medications: Refilled pantoprazole (Protonix) 40 mg PO DAILY 30 days 30 tabs 2RF blood sugar diagnostic (FreeStyle Lite Strips) As directed once a day 100 ea 12RF E11.9 - Type 2 diabetes mellitus without complications
[2024-09-17 08:32] VITALS: BP 142/78; PULSE 49; O2SAT 97; BMI 30.8
== END 2024-09-17 08:56 | disposition home or self-care (01) ==
LOC: HO.HMCH 08:15
PROVIDERS: PCP Internal Medicine; Visit Provider Internal Medicine
DX: I10 Essential (primary) hypertension (principal)

== ENCOUNTER 2024-10-03 13:47 | Emergency (ER) | payer OTHER, SELFPAY ==
--- NOTE | ~2024-10-03 | XR_ITS ---
EXAMINATION: XR CHEST CLINICAL INFORMATION: chest pain COMPARISON: 08/01/2023 TECHNIQUE: Frontal and lateral views of the chest were obtained. FINDINGS: No significant abnormality is noted involving the heart, lungs, mediastinum, bony thorax or soft tissues. XR/XR chest 2V IMPRESSION: No acute disease Electronically signed by: Angel Guidry MD 10/03/2024 02:11 PM [facility]
--- NOTE | 2024-10-03 13:49 | ECG_ITS ---
Test Reason : chest pain Blood Pressure : / mmHG Vent. Rate : 054 BPM Atrial Rate : 054 BPM P-R Int : 144 ms QRS Dur : 104 ms QT Int : 392 ms P-R-T Axes : 044 -18 000 degrees QTc Int : 371 ms Sinus bradycardia Incomplete right bundle branch block Moderate voltage criteria for LVH, may be normal variant ( R in aVL , [place] product ) Borderline ECG When compared with ECG of 01-AUG-2023 11:58, No significant change was found Referred By: Carmita Gonzalez Electronically Signed By:FRANCISCO POSEY MD
[2024-10-03 14:04] VITALS: BP 142/73; PULSE 55; RESP 16; TEMP 36.7; O2SAT 95; BMI 32.0
--- NOTE | 2024-10-03 14:04 | ED_ITS ---
HPI - General Adult General Chief complaint: Chest Pain Stated complaint: cp Time Seen by Provider: 10/03/24 15:11 Source: patient Mode of arrival: ambulatory Limitations: no limitations History of Present Illness ED Provider: Carlos CHRISTIANSON narrative: Patient is a 49-year-old male with history of DM, GERD, HTN presenting to the ED with complaint of chest pain since yesterday. States his symptoms feel consistent with his GERD but wants to be sure symptoms are not due to cardiac cause. Denies dyspnea or palpitations. Denies fevers. He is currently on esomeprazole but feels this is not controlling his GERD well. Denies radiation of pain to arms, jaw/neck. MD complaint: chest/epigastric pain Onset (ago): day(s) Location: chest and abdomen Quality: burning Associated symptoms: denies other symptoms Treatments prior to arrival: none Related Data Home Medications ?Medication ?Instructions ?Recorded ?Confirmed multivitamin (Daily Multi-Vitamin 1 tab PO DAILY 04/06/23 09/17/24 tablet) Previous Rx's ?Medication ?Instructions ?Recorded blood-glucose meter (FreeStyle #1 ea 08/31/23 Lite Meter kit) lancets 28 gauge (FreeStyle #100 ea 08/31/23 Lancets) glipizide 5 mg tablet 5 mg PO DAILY #90 tabs 04/19/24 valsartan 80 mg tablet 80 mg PO DAILY #90 tabs 04/20/24 blood sugar diagnostic (FreeStyle #100 ea 09/18/24 Lite Strips) pantoprazole 40 mg tablet,delayed 40 mg PO DAILY #90 tabs 09/18/24 release Allergies Allergy/AdvReac Type Severity Reaction Status Date / Time lisinopril Allergy Mild Closed Verified 10/03/24 14:07 throat sulfamethoxazole Allergy Mild Rash Verified 10/03/24 14:07 [From Bactrim] trimethoprim [From Bactrim] Allergy Mild Rash Verified 10/03/24 14:07 fish derived [fish] Allergy Unknown Rash, Verified 10/03/24 14:07 Redness morphine [MORPHINE] Allergy Unknown Nausea and Verified 10/03/24 14:07 Vomiting Sulfa (Sulfonamide Allergy Unknown rash Verified 10/03/24 14:07 Antibiotics) Fish Containing Products AdvReac Unknown Worsens Verified 10/03/24 14:07 Gout symptoms Review of Systems 2 Review of Systems: As per HPI. Yes all other systems are reviewed and are negative Constitutional: Constitutional: Reports as per HPI [facility] Past Medical History Medical History (Updated 10/03/24 @ 15:15 by Carmita Gonzalez NP) Physical exam Delayed gastric emptying Back pain Neck pain Possible exposure to STD Tendinitis of left elbow Rash Fibroma of skin Obesity Screening for prostate cancer Adult general medical exam Diabetes mellitus with coincident hypertension Gout Sinusitis History of cardiac murmur Avascular necrosis of bone of hip Chronic GERD Sinus infection Diabetes mellitus Dysuria Diabetes COVID-19 Chronic GERD Cough Surgical History History of surgery on right wrist History of esophagogastroduodenoscopy (EGD) H/O colonoscopy H/O total hip arthroplasty H/O wrist surgery History of umbilical hernia repair History of wisdom tooth extraction History of tonsillectomy Family History Family History Father No problems noted. Mother Colon cancer Diabetes Hypertension Family/Other Diabetes Hypertension Social History Social History Housing: Apartment Alcohol intake: never Patient Tobacco Use Status: Never used Tobacco e-Cigarette/Vaping Use: Never Used Second Hand Smoke Exposure: Yes service: No Current occupational status: disabled Current occupational exposures/hazards: No Cognitive needs: No Hearing needs: No Vision needs: Yes Physical Exam ED Vital Signs: Vital Signs - 24 hr 10/03/24 14:04 Temperature 98.0 F Pulse Rate 55 Respiratory Rate 16 Blood Pressure 142/73 H Pulse Oximetry 95 Oxygen Delivery Method Room Air BMI result Body Mass Index 32.0 Vital signs have been reviewed and appear to be correct. Blood pressure normal. Heart rate normal. Respiratory rate normal. Temperature normal. Oxygen saturation normal. Const General: cooperative, healthy appearing and no acute distress Orientation/consciousness: oriented to person, oriented to place, oriented to time and patient oriented x3 Limitations: no limitations HENMT Head: Yes normocephalic and Yes atraumatic Ears: external ears normal General nose exam: Normal external nose present Face and sinus: Yes face symmetric Mouth: oropharynx normal and moist mucous membranes Throat: Yes uvula midline Eyes Pupils: Equal, round and reactive pupils present Neck Neck: Yes normal visual inspection and Yes supple Resp Effort & Inspection: normal respiratory effort and able to speak in complete sentences Auscultation: clear to auscultation bilaterally Cardio Rate: regular rate Rhythm: regular rhythm Heart sounds: S1 normal heart sound present and S2 normal heart sound present GI Palpation (GI): Soft to palpation and nontender Auscultation: normoactive bowel sounds General: Yes no CVA tenderness Back/Spine/Pelvis Back: no CVA tenderness Skin General skin exam: elasticity normal and turgor normal Neuro General: oriented to person, oriented to place, oriented to time, patient oriented x3, moves all extremities, no focal motor deficits and CN's II-XI intact bilaterally Cranial nerves: Yes Equal, round and reactive pupils present Cognition (Neuro): normal cognition Extrem General: Yes full ROM, Yes no pedal edema and Yes no calf tenderness Psych Mental Status: mental status grossly normal Affect: normal affect Thought process: Normal thought process present Course Course Course Narrative: This is a rapid medical exam performed by Nick Gonzalez NP: Additional HPI, ROS, PE not included below will be deferred to primary provider. Patient is a 49-year-old male with history of DM, GERD, HTN presenting to the ED with complaint of chest pain since yesterday. States feels like his GERD but wants to be sure symptoms are not due to cardiac cause. Denies dyspnea. Plan: EKG, labs, CXR Medical Decision Making Medical Decision Making MDM Narrative: Patient is a 49-year-old male with history of DM, GERD, HTN presenting to the ED with complaint of chest pain since yesterday. On exam patient is awake, A+Ox3, VS WNL, afebrile, normal neurological exam without focal deficits, physical exam findings as above. Given reported symptoms and physical exam findings, initial differential includes GERD, PUD, gastritis, costochondritis, chest wall pain. Unlikely ACS. EKG is unchanged from prior. Labs notable for mildly elevated troponin at baseline, otherwise unremarkable. X-ray chest notable for no evidence of pneumonia or pneumothorax. My interpretation is in agreement with the radiologist's interpretation. Patient is well-appearing and states his symptoms are consistent with his GERD symptoms. Case discussed with Dr. Perales who feels repeat troponin is not indicated. Results discussed with patient and all questions answered. Patient specifically requesting GI cocktail. Maalox and lidocaine ordered. Patient advised to follow up with his buffer nickel. Return precautions discussed. Patient verbalized understanding of and agreement with plan. Differential Diagnosis Differential Diagnoses: The differential diagnosis associated with the presentation includes As per [facility] Admission/Observation Consideration of admission/observation: Escalation of care including admission/observation considered Patient would have been admitted to the hospital had their work up had any findings where hospital admission was appropriate and their clinical presentation warranted hospital admission. Lab Data [facility] Lab Attestation statement: I reviewed the patient's lab results. as per [facility] 10/03/24 14:37 10/03/24 14:37 Labs: Lab Results 10/03/24 Range/Units 14:37 WBC 8.2 (4.8-10.8) X10*3/uL RBC 5.26 (4.60-5.80) X10*6/uL Hgb 15.1 (14.0-18.0) g/dl Hct 43.5 (42.0-52.0) % MCV 82.7 (80.0-98.0) fL MCH 28.7 (27.0-33.0) pg MCHC 34.7 (31.0-36.0) g/dl RDW 12.8 (11.0-16.0) % Plt Count 267 (160-400) X10*3/uL MPV 10.3 (9.4-12.4) fL Immature Gran % (Auto) 0.2 (0.0-0.4) % Neut % (Auto) 59.6 (45-73) % Lymph % (Auto) 32.5 (20-40) % [place] % (Auto) 6.1 (2-11) % Eos % (Auto) 1.0 (0-4) % Baso % (Auto) 0.6 (0-2) % Lymph # (Auto) 2.7 (1.2-4.9) X10*3/uL [place] # (Auto) 0.5 (0.1-1.2) X10*3/uL Eos # (Auto) 0.1 (0.0-0.4) X10*3/uL Baso # (Auto) 0.1 (0.0-0.2) X10*3/uL Abs Immat Gran (auto) 0.02 (0.00-0.03) X10*3/uL Absolute Neuts (auto) 4.9 (2.0-8.3) x10*3/uL Absolute Nucleated RBC 0.000 (0.0-0.012) X10*3/uL Nucleated RBC % (auto) 0.0 (0.0-0.2) /100WBC PT 11.3 (10.9-12.4) SEC INR 1.0 (0.9-1.1) Sodium 139 (135-145) mmol/L Potassium 4.1 (3.3-5.1) mmol/L Chloride 104 (96-108) mmol/L Carbon Dioxide 28 (22-29) mmol/L Anion Gap 11 L (12-20) BUN 22 H (9-16) mg/dL Creatinine 1.01 (0.5-1.4) mg/dL Estim Creat Clear Calc 100.0 Estimated GFR > 60 Random Glucose 219 H (60-115) mg/dL Calcium 10.0 (8.4-10.2) mg/dL Total Bilirubin 0.3 (0.0-1.0) mg/dL AST 22 (5-37) U/L ALT 23 (0-40) U/L Alkaline Phosphatase 63 (39-117) U/L Troponin I High Sens 18.7 (<3.5-35.0) ng/L Total Protein 7.5 (6.5-8.0) g/dL Albumin 4.4 (3.5-5.0) g/dL Independent Interpretation I performed an independent interpretation of an: EKG (sinus bradycardia, rate 54 bpm, normal TN interval, incomplete RBBB, no significant change from prior) External Record Review External record reviewed: Inpatient record, Office record and Outpatient record Discharge Plan Discharge Clinical Impression: Atypical chest pain Patient Disposition: Home, Self-Care Instructions: Diet for Stomach Ulcers and Gastritis (ED), Gastroesophageal Reflux Disease (DC), Noncardiac Chest Pain (ED) Additional Instructions: You were evaluated in the emergency department today for chest pain. Your evaluation has shown no signs of medical conditions requiring emergent intervention at this time, however we recommend that you follow-up with your primary care physician. Your symptoms are likely due to GERD. You can use over the counter Maalox if your symptoms are not controlled with your daily medications. You can also follow up with the buffer nickel for further evaluation. Return to the emergency department if you experience worsening or uncontrolled chest pain, shortness of breath, lightheadedness, feeling faint, loss of consciousness, nausea, vomiting, or any other concerning symptoms. Prescriptions: No Action (DME) blood-glucose meter [FreeStyle Lite Meter] Kit See Rx Instructions .ROUTE .MEDSUPPLY Qty: 1 0RF Rx Instructions: As directed (DME) lancets [FreeStyle Lancets] 28 gauge misc See Rx Instructions .ROUTE .MEDSUPPLY Qty: 100 12RF Rx Instructions: As directed once a day glipizide 5 mg tablet 5 mg PO DAILY Qty: 90 8RF valsartan 80 mg tablet 80 mg PO DAILY Qty: 90 1RF pantoprazole 40 mg tablet,delayed release (DR/EC) 40 mg PO DAILY Qty: 90 2RF (DME) FreeStyle Lite Strips Strip See Rx Instructions .ROUTE .MEDSUPPLY Qty: 100 12RF Rx Instructions: As directed once a day multivitamin [Daily Multi-Vitamin] Tablet 1 tab PO DAILY Referrals: [facility] Gastroenterology Services [Provider Group] Print Language: [place]
[2024-10-03 14:42] LABS: MANUAL DIFF FLAG NO
[2024-10-03 14:46] LABS: Basophils Absolute Auto 0.1 X10*3/uL (0.0-0.2); Basophils Percent Auto 0.6 % (0-2); Eosinophils Absolute Auto 0.1 X10*3/uL (0.0-0.4); Hematocrit 43.5 % (42.0-52.0); Hemoglobin 15.1 g/dl (14.0-18.0); Imm Gran Abs Auto 0.02 X10*3/uL (0.00-0.03); Imm Gran Pct Auto 0.2 % (0.0-0.4); Lymphocytes Absolute Auto 2.7 X10*3/uL (1.2-4.9); Lymphocytes Percent Auto 32.5 % (20-40); Mean Corpuscular HGB Conc 34.7 g/dl (31.0-36.0); Mean Corpuscular Hemoglobin 28.7 pg (27.0-33.0); Mean Corpuscular Volume 82.7 fL (80.0-98.0); Mean Platelet Volume 10.3 fL (9.4-12.4); Monocytes Absolute Auto 0.5 X10*3/uL (0.1-1.2); Monocytes Percent Auto 6.1 % (2-11); Neutrophils Absolute Auto 4.9 x10*3/uL (2.0-8.3); Neutrophils Percent Auto 59.6 % (45-73); Platelet Count 267 X10*3/uL (160-400); Red Blood Count 5.26 X10*6/uL (4.60-5.80); Red Cell Distribution Width 12.8 % (11.0-16.0); White Blood Count 8.2 X10*3/uL (4.8-10.8)
[2024-10-03 14:51] LABS: Prothrombin Time 11.3 SEC (10.9-12.4)
[2024-10-03 15:03] LABS: Troponin-I High Sensitivity 18.7 ng/L (<3.5-35.0)
[2024-10-03 15:04] LABS: Alanine Aminotransferase 23 U/L (0-40); Albumin Level 4.4 g/dL (3.5-5.0); Anion Gap 11 (12-20); Aspartate Amino Transferase 22 U/L (5-37); Bilirubin Total 0.3 mg/dL (0.0-1.0); Blood Urea Nitrogen 22 mg/dL (9-16); Carbon Dioxide 28 mmol/L (22-29); Chloride 104 mmol/L (96-108); Estimated Glomerular Filt Rate > 60; Glucose Random 219 mg/dL (60-115); Potassium 4.1 mmol/L (3.3-5.1); Sodium 139 mmol/L (135-145); Total Protein 7.5 g/dL (6.5-8.0)
[2024-10-03 15:08] LABS: Alkaline Phosphatase 63 U/L (39-117)
[2024-10-03 15:24] VITALS: BP 143/70; PULSE 51; RESP 17; TEMP 36.6; O2SAT 96
[2024-10-03] MEDS: Magnesium Hydrox/Alum Hydrox 30 ML ORAL.SUSP 15 ML PO (15:33)
[2024-10-03] MEDS: Lidocaine HCl Viscous 2 % 15 ML SOLUTION 10 ML MUCOUS MEM (15:33)
[2024-10-03 15:38] VITALS: BP 143/70; PULSE 51; RESP 17; TEMP 36.6; O2SAT 96
== END 2024-10-03 15:39 | disposition home or self-care (01) ==
PROVIDERS: Registered Nurse Emergency; Emergency Provider Emergency Medicine; PCP Internal Medicine
DX: R07.89 Other chest pain (principal); E11.9 Type 2 diabetes mellitus without complications; I10 Essential (primary) hypertension; K21.9 Gastro-esophageal reflux disease without esophagitis; Z79.899 Other long term (current) drug therapy
CPT/HCPCS: 36415; 71046; 80053; 84484; 85025; 85610; 93005; 99283

== ENCOUNTER → 2024-10-03 13:49 | Outpatient (BNV) | payer OTHER, SELFPAY | PROVIDERS: Emergency Provider Emergency Medicine; PCP Internal Medicine; Visit Provider Internal Medicine Cardiovascular Disease | DX: R00.1 Bradycardia, unspecified (principal); R94.31 Abnormal electrocardiogram [ECG] [EKG] | CPT/HCPCS: 93010 ==

== ENCOUNTER 2024-10-09 13:25 | Outpatient (AMB) | payer OTHER, SELFPAY ==
--- NOTE | 2024-10-09 13:26 | MHC.PC.OV ---
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 Required: No Allergies lisinopril Allergy (Mild, Verified 10/09/24 13:27) Closed throat sulfamethoxazole [From Bactrim] Allergy (Mild, Verified 10/09/24 13:27) Rash trimethoprim [From Bactrim] Allergy (Mild, Verified 10/09/24 13:27) Rash fish derived [fish] Allergy (Unknown, Verified 10/09/24 13:27) Rash, Redness morphine [MORPHINE] Allergy (Unknown, Verified 10/09/24 13:27) Nausea and Vomiting Sulfa (Sulfonamide Antibiotics) Allergy (Unknown, Verified 10/09/24 13:27) rash Fish Containing Products Adverse Reaction (Unknown, Verified 10/09/24 13:27) Worsens Gout symptoms Medication List - Last Reconciled 10/09/24 by Da Eckert MD blood sugar diagnostic (FreeStyle Lite Strips) As directed once a day blood-glucose meter (FreeStyle Lite Meter kit) As directed glipizide 5 mg PO DAILY lancets (FreeStyle Lancets) As directed once a day multivitamin (Daily Multi-Vitamin tablet) 1 tab PO DAILY pantoprazole 40 mg PO DAILY valsartan 80 mg PO DAILY Tobacco use date assessed: 09/17/24 Dental Screening Dental Screen Date: 02/14/24 HPI [facility] 10/03 HPI Details went to the ER with chest pain due to GERD and would like another referral to see Dr Nam [facility] Medical History (Updated 10/04/24 @ 00:03 by Mahnaz Kong) Physical exam Delayed gastric emptying Back pain Neck pain Possible exposure to STD Tendinitis of left elbow Rash Fibroma of skin Obesity Screening for prostate cancer Adult general medical exam Diabetes mellitus with coincident hypertension Gout Sinusitis History of cardiac murmur Avascular necrosis of bone of hip Chronic GERD Sinus infection Diabetes mellitus Dysuria Diabetes COVID-19 Chronic GERD Cough Surgical History History of surgery on right wrist History of esophagogastroduodenoscopy (EGD) H/O colonoscopy H/O total hip arthroplasty H/O wrist surgery History of umbilical hernia repair History of wisdom tooth extraction History of tonsillectomy Family History Father No problems noted. Mother Colon cancer Diabetes Hypertension Family/Other Diabetes Hypertension Social History Housing: Apartment Alcohol intake: never Patient Tobacco Use Status: Never used Tobacco e-Cigarette/Vaping Use: Never Used Second Hand Smoke Exposure: Yes service: No Current occupational status: disabled Current occupational exposures/hazards: No Cognitive needs: No Hearing needs: No Vision needs: Yes Questionnaire Thrive Questionnaire Date Thrive assessed: 12/16/23 AUDIT C Alcohol Use Questionnaire (AUDIT-C) 1. How often do you have a drink containing alcohol?: Never Total Score: 0 Score Reviewed/Action Taken: Yes MICHAEL-7 AMB Questionnaire MICHAEL-7 Date MICHAEL - 7 assessed: 12/16/23 Source: Developed by Drs. Xavier Blackman, Jossy Puente, Gaurav Ruano and colleagues, with an educational dread from [employer]. Review of Systems Const Denies chills, Denies headache(s) and Denies weight loss ENT Denies headache(s) Card Denies chest pain, Denies syncope, Denies irregular heart rhythm and Denies dyspnea Resp Denies chest congestion, Denies cough and Denies dyspnea GI Denies abdominal pain, Denies change in stool character, Denies nausea and Denies vomiting Musc Denies deformity and Denies joint swelling Neuro Denies syncope and Denies headache(s) Physical exam (Primary Care) Vital Signs: Last Vital Signs Pulse 63 10/09/24 13:27 BP 140/82 H 10/09/24 13:27 Pulse Ox 95 10/09/24 13:27 Oxygen Delivery Method Room Air 10/09/24 13:27 BMI result Body Mass Index 31.5 Tobacco/Smoking Status: Tobacco use Status Tobacco use date assessed 09/17/24 10/09/24 13:32 Patient Tobacco Use Status Never used Tobacco 10/09/24 13:32 e-Cigarette/Vaping Use Never Used 10/09/24 13:32 Thrive Assessment: Date of Thrive Assessment Date Thrive assessed 12/16/23 10/09/24 13:32 Const General: cooperative, comfortable, no acute distress and alert Neck Neck: Yes no lymphadenopathy Thyroid: Thyroid normal Resp Effort & Inspection: normal respiratory effort Auscultation: clear to auscultation bilaterally Percussion: percussion normal Cardio Jugular venous distension: no JVD Palpation: normal PMI Rate: regular rate Rhythm: regular rhythm Heart sounds: S1 normal heart sound present and S2 normal heart sound present GI Inspection: Yes normal to inspection Palpation (GI): No hepatosplenomegaly present Skin General skin exam: no rashes or lesions noted Extrem General: Yes no clubbing, cyanosis or edema Coding Level of Care Code Est Pt Level 3 (29948) Diagnoses Chronic GERD K21.9 Assessment & Plan Assessment & Plan (1) Chronic GERD: Code(s): K21.9 - Gastro-esophageal reflux disease without esophagitis Category: Medical Plan: referred as per patient request Orders: Referrals Gastroenterology Referral K21.9 - Gastro-esophageal reflux disease without esophagitis
[2024-10-09 13:27] VITALS: BP 140/82; PULSE 63; O2SAT 95; BMI 31.5
== END 2024-10-09 13:40 | disposition home or self-care (01) ==
PROVIDERS: PCP Internal Medicine; Visit Provider Internal Medicine
DX: K21.9 Gastro-esophageal reflux disease without esophagitis (principal)

== ENCOUNTER → 2024-10-09 13:25 | Outpatient (BNVA) | payer OTHER, SELFPAY | PROVIDERS: PCP Internal Medicine; Visit Provider Internal Medicine | DX: K21.9 Gastro-esophageal reflux disease without esophagitis (principal) | CPT/HCPCS: 99212 ==

== ENCOUNTER 2024-12-19 05:59 | Outpatient (REF) | payer OTHER, SELFPAY ==
[2024-12-19 06:09] LABS: MANUAL DIFF FLAG NO
[2024-12-19 07:12] LABS: Basophils Absolute Auto 0.1 X10*3/uL (0.0-0.2); Basophils Percent Auto 0.8 % (0-2); Eosinophils Absolute Auto 0.1 X10*3/uL (0.0-0.4); Eosinophils Percent Auto 1.6 % (0-4); Hematocrit 43.6 % (42.0-52.0); Hemoglobin 14.5 g/dl (14.0-18.0); Imm Gran Abs Auto 0.02 X10*3/uL (0.00-0.03); Imm Gran Pct Auto 0.3 % (0.0-0.4); Lymphocytes Absolute Auto 2.9 X10*3/uL (1.2-4.9); Mean Corpuscular HGB Conc 33.3 g/dl (31.0-36.0); Mean Corpuscular Hemoglobin 28.2 pg (27.0-33.0); Mean Corpuscular Volume 84.7 fL (80.0-98.0); Mean Platelet Volume 10.6 fL (9.4-12.4); Monocytes Absolute Auto 0.5 X10*3/uL (0.1-1.2); Monocytes Percent Auto 7.3 % (2-11); Neutrophils Absolute Auto 2.8 x10*3/uL (2.0-8.3); Platelet Count 270 X10*3/uL (160-400); Red Blood Count 5.15 X10*6/uL (4.60-5.80); Red Cell Distribution Width 12.9 % (11.0-16.0); White Blood Count 6.3 X10*3/uL (4.8-10.8)
[2024-12-19 07:14] LABS: Estimated Average Glucose 154 mg/dL; Hemoglobin A1C 205.1072 umol/L; Total Hemoglobin (HGBA1C) 3850.1514 umol/L
[2024-12-19 07:18] LABS: Alanine Aminotransferase 27 U/L (0-40); Albumin Level 4.2 g/dL (3.5-5.0); Alkaline Phosphatase 63 U/L (39-117); Anion Gap 12 (12-20); Aspartate Amino Transferase 22 U/L (5-37); Bilirubin Total 0.4 mg/dL (0.0-1.0); Blood Urea Nitrogen 15 mg/dL (9-16); Calcium 9.2 mg/dL (8.4-10.2); Carbon Dioxide 26 mmol/L (22-29); Chloride 106 mmol/L (96-108); Cholesterol 214 mg/dL (<200); Estimated Glomerular Filt Rate > 60; Glucose Fasting 145 mg/dL (60-99); HDL Cholesterol 44 mg/dL (>40); LDL Cholesterol Calculated 143 mg/dL (<100); Potassium 4.2 mmol/L (3.3-5.1); Sodium 140 mmol/L (135-145); Total Protein 7.5 g/dL (6.5-8.0); Triglycerides 138 mg/dL (<150)
== END 2024-12-19 06:00 | disposition home or self-care (01) ==
LOC: HO.LAB 05:59
PROVIDERS: PCP Internal Medicine; Visit Provider Internal Medicine
DX: I10 Essential (primary) hypertension (principal); R73.9 Hyperglycemia, unspecified; Z13.0 Encounter for screening for diseases of the blood and blood-forming organs and certain disorders involving the immune mechanism; Z13.220 Encounter for screening for lipoid disorders; Z13.9 Encounter for screening, unspecified
CPT/HCPCS: 36415; 80053; 80061; 83036; 85025; 96127; 99212

== ENCOUNTER → 2024-12-21 08:03 | Outpatient (AMB) | payer OTHER, SELFPAY ==
--- OUTSIDE RECORDS SUMMARY | 2024-12-21 08:09 | XMS_ITS | Patient Health Record ---
[facility] [place] Address [address] [place] [address] Care Team Providers Care Payroll Bookkeeper Name Role Phone Juwan Szymanski Unavailable [phone] Allergies Allergen (clinical drug ingredient) Drug/Non Drug Allergy documented on EMR Reaction Allergy Type Onset Date Status benztropine Benztropine Mesylate Unknown Drug Allergy Active fish oils Fish Oil Unknown Drug Allergy Active morphine Morphine Unknown Drug Allergy Active Results Component Value Reference Range Notes HEMOGLOBIN A1C (GLYCOHEMOGLO BIN) Reviewed date:10/04/2024 09:01:36 AM Interpretation: Performing Lab: Notes/Report: TOTAL HEMOGLOBIN (HGBA1C) 6 Reason For Referral No Information Medications Medication SIG (Take, Route, Fr equency, Duration) Notes Start Date End Date Status Pantoprazole Sodium Active Ketoconazole 2 % to feet Externally O nce a day for 21 days 10/04/2024 Active glipiZIDE Active Valsartan Active Social History Tobacco Use: Social History Observation Description Date Details (start date - stop date) Never Smoker NA - NA Tobacco use other than smoking: Question Answer Notes Are you an other tobacco user? No Tobacco Control (Standard) Question Answer Notes Tobacco use: Nonsmoker Additional Findings: Tobacco non-user Current no nsmoker AUDIT-C (Standard) Question Answer Notes Did you have a drink containing alcohol in the p ast year? No Points 0 Interpretation Negative Problems Problem Type SNOMED Code ICD Code Onset Dates Problem Status W/U Status Risk Notes Problem Polyneuropathy due to type 2 diabetes mellitus (229521452) Type 2 diabetes mellitus with diabetic polyneuropathy (E11.42) Active confirmed Vital Signs Height 5ft 10in in 10/04/2024 Weight 219 lbs 10/04/2024 BMI 31.42 kg/m2 10/04/2024 Procedures Procedure Date Ordered Date Performed Result Body Sit e D2359-ZCHDHMGC DYSTROPHIC NAILS ANY # 10/04/2024 N/A Encounters Encounter Location Date Provider Diagnosis [address] [address] 10/04/2024 Juwan Stephon Type 2 diabetes mellitus with diabetic polyneuropathy E11.42 and Tinea pedis of both feet B35.[address] [facility] [address] [place] [address] 10/01/[address] [facility] [address] 11/27/2024 Juwan Stephon Assessments Encounter Date Diagnosis (ICD Code) Assessment Notes Treatment Notes Treatment Clinical Notes Section Notes 10/04/2024 Type 2 diabetes mellitus with diabetic polyneuropathy (ICD-10 - E11.42) 10/04/2024 Tinea pedis of both feet (ICD-10 - B35.3) Application of Castilani's paint to 4th interspaces B/L Plan Of Treatment Pending Test Test Name Order Date [id number] DYSTROPHIC NAILS ANY # Next Appt Details Provider Name:Juwan Szymanski, 12/27/2024 11:15:00 AM, [address] [facility], [place], [address], Insurance Providers Payer Name Payer Address Payer Phone Subscriber Number Group Number Insured Name Patient Relationship to Insured Coverage Start Date Coverage End Date [facility] [employer] Claims [address] ABELARDO Woody [id number] Angel Gary Self - patient is the insured Medical (General) History Medical History History ICD Code Diverticulosis High Blood Pressure Reflux ( GERD) type II diabetes Surgical History Surgery Date(Month/Year) left hip replacement hernia hand
--- OUTSIDE RECORDS SUMMARY | 2024-12-21 08:09 | XMS_ITS ---
Author Organization [facility] [place] Address [address] [place] [address] Care Team Providers Care Pasteurizer Helper Name Role Phone Juwan Szymanski Unavailable [phone] Allergies Allergen (clinical drug ingredient) Drug/Non Drug Allergy documented on EMR Reaction Allergy Type Onset Date Status benztropine Benztropine Mesylate Unknown Drug Allergy Active fish oils Fish Oil Unknown Drug Allergy Active morphine Morphine Unknown Drug Allergy Active REASON FOR VISIT last visit pcp 08/2024, At Risk Footcare, Skin Problem Medications Medication SIG (Take, Route, Fr equency, [...] Polyneuropathy due to type 2 diabetes mellitus (738008044) Type 2 diabetes mellitus with diabetic polyneuropathy (E11.42) Active confirmed Vital Signs Height 5ft 10in in 10/04/2024 Weight 219 lbs 10/04/2024 BMI 31.42 kg/m2 10/04/2024 Procedures Procedure Date Ordered Date Performed Result Body Sit e X8296-HBGRVRAQ DYSTROPHIC NAILS ANY # 10/04/2024 N/A Encounters Encounter Location Date Provider Diagnosis [facility] [address] [address] 10/04/2024 Juwan Szymanski Type 2 diabetes alayna itus with diabetic polyneuropathy E11.42 and Tinea pedis of both feet B35.3 Assessments Encounter Date Diagnosis (ICD Code) Assessment Notes Treatment Notes Treatment Clinical Notes Section Notes 10/04/2024 Type 2 diabetes mellitus with diabetic polyneuropathy (ICD-10 - E11.42) 10/04/2024 Tinea pedis of both feet (ICD-10 - B35.3) Application of Castilani's paint to 4th interspaces B/L Plan Of Treatment Medication Medication Name Sig Start Date Stop Date Notes Ketoconazole 2 % to feet Externally Once a day for 21 days 10/04/2024 Treatment Notes Assessment Notes Tinea pedis of both feet Application of Castilani's paint to 4th interspaces B/L Pending Test Test Name Order Date [id number] DYSTROPHIC NAILS ANY # Next Appt Details Follow Up: 2 Months, Reason: Provider Name:Juwan Szymanski, 12/27/2024 11:15:00 AM, [address] [place] [address], [place], [address], Procedure Notes * Category Sub-Category Detail Notes Nail Reduction Nail Reduction (-27) Performanc e of this nail treatment by a nonprofessional would put this patients foot and overall health at risk. Therefore, trimming of dystrophic nails, as described in exam, was performed to reduce/remove overall nail length and girth, by manual and electrical means with use of a nail nipper and/or dremel, to more viable healthy nail plate or bed tissue, any number - G0127 Progress Notes * Angel GARYDOB:1975 ([age] yo M)Acc No.[id number]:10/04/2024 Progress Notes Patient:?Angel GARY Provider:?Juwan Szymanski D.P.M. :1975???Age:49 Y???Sex:Male Chad e:10/04/2024 Address:[address] [place], [place] [id number] Subjective: * Chief Complaints: * ???Last visit pcp t Risk FootcareSkin Problem * HPI: ???Skin problems:?Nature:?scaling , redness.?Location:?4th, Interspace(s)/Between toe(s), B/L.?Duration:?several months.?Onset/Cause:?unknown.?Course:?worse.?Aggravated by:?shoe gear.?Treatments:?none.?Severity/Quality:?moderate.? * ROS:?General/Constitutional:?Nausea?denies.?Vomiting?denies.?Hunger Thirst?denies.?Loss appetite?denies.?Chills?denies.?Fatigue?denies.?Fever?denies.?Night Sweats?denies.?Unexplained weight loss?denies.?Unexplained weight gain?denies.?HEENTM:?Dentures?denies.?Dizziness?denies.?Glasses/contacts?denies.?Retinopathy?de nies.?Blurred/double vision?denies.?TMJ?denies.?Discharge/drainage?denies.?Implants?denies.?Sore throat?denies.?Dental implants?denies.?Hard of hearing ?denies.?Difficulty chewing/swallowing/speaking?denies.?Nose bleeds?denies.?Sore mouth?denies.?Respiratory:?On Oxygen?denies.?Pneumonia/pleurisy?denies.?Bronchitis?denies.?Emphysema?denies.?C oughing?denies.?Cough blood?denies.?Shortness of breath?denies.?Wheezing?denies.?Cardiovascular:?Pacemaker?denies.?MVP?denies.?WPW?denies.?CHF?denies.?Heart attack?denies.?Septal defect?denies.?Rapid beat?denies.?Chest pain ?denies.?Atrial Fib.?denies.?Murmur/Palpitations?denies.?Gastrointestinal:?Hemorrhoids?denies.?Stomach/Abdominal pain?denies.?Dark blood stool?denies.?Irritable bowel ?denies.?Constipation?denies.?Diarrhea?denies.?Hematology:?Swelling?denies.?Clots?denies.?Varicose Veins?denies.?Bruising?denies.?Bleeding problem?denies.?Genitourinary:?Blood urine?denies.?Frequent/Painfu/urination/bladder control?denies.?Kidney stones?denies.?Infection (UTI)?denies.?Nephropathy?denies.?sex trans dis (STD)?denies.?Prostate?denies.?Musculoskeletal:?Hammertoes?denies.?Bunions?denies.?Back Pain?denies.?Muscle Cramps/ Resting?denies.?Muscle cramps / walking?denies.?Generalized aches and pains?denies.?Weakness?denies.?Integ.:?Eid?denies.?Scars?denies.?Corns/calluses?denies.?Ingrown nails?denies.?Painful nails?admits.?Open Sores?denies.?Rashes?admits.?Neurologic:?Difficulty sleeping?denies.?Brain disorder?denies.?Numbness?denies.?Balance trouble?denies.?Confusion?denies.?Fainting/blackouts?denies.?Tingling?denies.?Tr emors?denies.? * Medical History:? * Surgical History:?left hip r eplacement hernia hand * Hospitalization/Major Diagno stic Procedure:?No Hospitalization History. * Family History:?Mother: dece ased, diagnosed with Other malignant neoplasm of unspecified site, Diabetic - NIDDM, Unspecified essential hypertension.?Father: .? * Social History:?Tobacco Use:?Tobacco use other than smoking?Are you an other tobacco user??No ?Tobacco Control (Standard)?Tobacco use:?Nonsmoker ?Additional Findings: Tobacco non-user?Current nonsmoker ???Drugs/Alcohol:?Drugs?Have you used drugs other than those for medical reasons in the past 12 months??No ???Miscellaneous:?Caffeine: yes. ?Children: yes, 3. ?Exercise: yes, gym. ?Marital status: Single. ?Occupation: Unemployed, disabled. ???Drug/Alcohol:?AUDIT-C (Standard)?Did you have a drink containing alcohol in the past year??No ?Points?0 ?Interpretation?Negative * Medications:?TakingglipiZIDE Valsartan Pantoprazole Sodium Medication List reviewed and reconciled with the patientTaking glipiZIDE Taking Valsartan Taking Pantoprazole Sodium Medication List reviewed and reconciled with the patient * Allergies:?MorphineFish OilB enztropine Mesylateyes[Allergies Verified] Objective: * Vitals:?Ht: 5ft 10in, Wt:219 , BMI:31.42, Shoe size: 9, BS: 125, Ht-cm: 177.8 cm, Wt-k.34 kg. * ???Past Orders: ???Lab:HEMOGLOBIN A1C (GLYCO HEMOGLOBIN) (Order Date - 06/27/2024) (Collection Date & Time - 06/27/2024 09:00 AM) ? Value Reference Range ?TOTAL HEMOGLOBIN (HGBA1C) 6 * Examination: ???Neurological: ?SENSORY:?Neurological exam demonstrates, reduced light touch sensation, reduced sharp/dull discrimination , reduced vibration sensation, in a stocking fashion, B/L, 5.07 monofilament test performed at plantar aspects of 5 varied sites per foot shows sensation, reduced, B/L.?Nails: ?NAILS are:?Elongated, overgrown, dystrophic, 1-5 B/L.?Orthopedic: ?MUSCLE STRENGTH:?5/5 all groups in a symmetrical fashion, B/L.?Vascular: ?DP PULSES(B):?3/4 , B/L.?PT PULSES(B):?2/, B/L.?CAPILLARY FILL TIME:?immediate, all digits, B/L.?TROPHIC CONDITION-TEXTURE/ELASTICITY/TURGOR/HAIR GROWTH(B):?normal.?TEMPERTURE GRADIENT(C):?normal, warm to cool, proximal to distal, B/L.?General Examination: ?GENERAL APPEARANCE:?Reveals a pleasant, alert, well nourished, well- developed, well hydrated individual, who demonstrates proper attention to hygiene/body habitus, and is in no acute distress, Pt serves as own historian for office visit today.?ORIENTED:?person, place, and time.?Ophthalmology Referral: ?DIABETES EYE EXAM?Dermatologic: ?TINEA PEDIS:?fine scaling skin on an erythematous base, macerated and cracked skin 4th interspaces B/L.? Assessment: * Assessment: 1.?Type 2 diabetes mellitus with diabetic polyneuropathy - E11.42 (Primary)???2.?Tinea pedis of both feet - B35.3???Specify :Acute problem, Uncomplicated (3),Rx drug management (4)??? Plan: * Treatment: 2.?Tinea pedis of both feet? Start Ketoconazole Cream, 2 %, to feet, Externally, Once a day, 21 days, 30, Refills 0.?? Notes: Application of Castilani's paint to 4th interspaces B/L?? * Procedures:?Nail Reduction:?Nail Reduction?(-27) Performance of this nail treatment by a nonprofessional would put this patients foot and overall health at risk. Therefore, trimming of dystrophic nails, as described in exam, was performed to reduce/remove overall nail length and girth, by manual and electrical means with use of a nail nipper and/or dremel, to more viable healthy nail plate or bed tissue, any number - G0127.? * Procedure Codes:?G0127 RANDAL ING DYSTROPHIC NAILS ANY # * Preventive Medicine:? ??Counseling:?Discussion:?-03: Office or other outpatient visit for the evaluation and management of a new patient, which required a medically appropriate history and/or examination and LOW level of DECISION MAKING for: 1 STABLE ACUTE UNCOMPLICATED PROBLEM, 2 OR MORE MINOR PROBLEMS, OR 1 STABLE CHRONIC PROBLEM, THAT POSE(S) A LOW RISK FOR MORBIDITY/MORTALITY. The visit on the day of the encounter encompassed interpreting the data and educating the patient as to the nature of their condition, treatment options available according to their individual PMH, meds, allergies, and overall health/living conditions, as well as any potential risks or complications that may occur from a failure to adhere to, and participate in, the recommended course of therapy. The discussion included a complete verbal, and/or written explanation of the examination results, any x-rays taken, the proposed diagnosis, and outline of the treatment plan. A schedule for future care needs was also explained. The patient verbalized an understanding of the instructions at this time and agreed to be an active participant in their treatment. If the patient should think of any questions or concerns after the visit, I have encouraged the patient to call the office.?Tinea Pedis:?The patient was counseled on the diagnosis, potential etiologies, and treatment options for their skin condition. We discussed the risks and benefits of each option from performing no treatment, to utilizing OTC topical skin creams, prescription topical creams, customized compounded topical medications, and, if necessary, to utilize oral antifungal therapy. We discussed the advantages and disadvantages of each possible treatment and importance for adherence to all the recommended therapies for optimum success and avoid potential complications such as open sore/infection/possible hospitalization. We discussed the potential effectiveness of each topical preparation as well as each ones possible side effects and/or patient medication interactions if oral therapy is selected. Patient questions re: the advantages and disadvantages of each treatment choice, medication use/dosage, successful outcomes, and application consistency were reviewed and the patient verbalized that all answers were clearly understood. The patient was told they can help alleviate symptoms by utilizing moisture absorbant innersoles with activated charcoal and baking soda, applying antifungal sprays daily, aerating toe web spaces at night by putting cotton or lambs wool between the toes, alternating shoe gear daily if possible so they can dry out, changing socks at least once during the day, wearing well-ventilated shoes or sandals. The patient has decided to apply antifungal skin creams to their feet as directed. Rx for ketoconazole was sent to their pharmacy at the time of visit.? * Follow Up:?2 Months * Images: * Sign off status: Completed true * Provider:?Juwan Szymanski D.P.M. Date:?09/15 Generated for Rony diop/Jon/Leo on:?12/21/2024 08:09 AM EST History and Physical Notes * HPI (History of Present Illness) Category Sub-Category Detail Notes Category Not es Skin problems Nature: scaling , redness Location: 4th, Interspace(s)/B etween toe(s), B/L Duration: several months Onset/Cause: unknown Course: worse Aggravated by: shoe gear Treatments: none Severity/Quality: moderate Examination Category Sub-Category Detail Notes Category Not es Neurological SENSORY: Neurological exa m demonstrates, reduced light touch sensation, reduced sharp/dull discrimination , reduced vibration sensation, in a stocking fashion, B/L, 5.07 monofilament test performed at plantar aspects of 5 varied sites per foot shows sensation, reduced, B/L Dermatologic TINEA PEDIS: fine scaling ski n on an erythematous base, macerated and cracked skin 4th interspaces B/L Orthopedic MUSCLE STRENGTH: 5/5 all groups in a symmetrical fashion, B/L General Examination GENERAL APPEARANCE: Reveals a pleasant, alert, well nourished, well-developed, well hydrated individual, who demonstrates proper attention to hygiene/body habitus, and is in no acute distress, Pt serves as own historian for office visit today ORIENTED: person, place, and t marty Ophthalmology Referral DIABETES EYE EXAM Diabeti c Retinopathy Screening:: Yes 09/19/24 Retinal Screening Performed:: Yes Findings of Diabetic Eye Exam:: no retin opathy 09/19/24 Vascular DP PULSES (B): 3/4 , B/L PT PULSES (B): 2/4, B/L CAPILLARY FILL TIME: immediate, all digi ts, B/L TEMPERTURE GRADIENT (C): normal, warm to cool, proximal to distal, B/L TROPHIC CONDITION-TEXTURE/ELASTICITY/TURGOR/HAIR GROWTH (B): normal Nails NAILS are: Elongated, overgrown, dystro phic, 1-5 B/L
--- OUTSIDE RECORDS SUMMARY | 2024-12-21 08:09 | XMS_ITS ---
Author Organization [facility] Address [address] [place] [address] Care Team Providers Care Seed Cleaner Name Role Phone Juwan Szymanski Unavailable [phone] REASON FOR VISIT RS 12/20/24 Encounters Encounter Location Date Provider Diagnosis [address] [address] 11/27/2024 Juwan Szymanski Plan Of Treatment Next Appt Details Provider Name:Juwan Szymanski, 12/27/2024 11:15:00 AM, [address] [place] [address], [place], [address], Progress Notes * Angel PAREDESDOB:1975 ([age] yo M)Acc No.[id number]:11/27/2024 Patient:?REGGIE Angel :1975???Age:49 Y???Sex:Male Address:[address] [place] [address] * true * Date:? Generated for Rony diop/Jon/eTransmitting on:?12/21/2024 08:09 AM EST
--- OUTSIDE RECORDS SUMMARY | 2024-12-21 08:09 | XMS_ITS | Patient Health Record ---
Author Organization [facility] Address [address] [place] [address] Care Team Providers Care Warp Changer Name Role Phone Da Eckert MD Primary Care Provider Xavier Rueda [phone] ALLERGIES Allergen (clinical drug ingredient) Drug/Non Drug Allergy documented on EMR Reaction Allergy Type Onset Date Status morphine Morphine Unknown Drug Allergy Active Fish Flavor Unknown Drug Allergy Activ e dicyclomine Bentyl Unknown Drug Allergy Activ e RESULTS Component Value Reference Range Notes Celiac Disease Panel Reviewed date:04/15/2024 07:04:22 PM Interpretation: Performing Lab:[facility], [address] [place] [phone] Notes/Report: Immunoglobulin A 226 47-310 mg/dL THIS TEST WAS PERFORMED AT: [facility] [address] [place] [phone] SERGIO FOURNIER MD Transglutaminase IgA <1.0 Value Interpretation ----- <15.0 Antibody not detected > or = 15.0 Antibody detected Celiac Disease Panel Interp. SEE NOTE No serological evidence of celiac disease. tTG IgA may normalize in individuals with celiac disease who maintain a gluten-free diet. Consider HLA DQ2 and DQ8 testing to rule out celiac disease. Celiac disease is extremely rare in the absence of DQ2 or DQ8. Glucose, Whole Blood Reviewed date:07/04/2024 04:38:08 PM Interpretation: Performing Lab:[facility], [address] [place] [phone] Notes/Report: Glucose, Whole Blood 127 60-115 mg/dL METER # : [id number] Pathology Reviewed date:07/07/2024 10:47:50 PM Interpretation: Performing Lab:[facility], [address] [place] [address], [place] [address] Notes/Report: REASON FOR REFERRAL No Information MEDICATIONS Medication SIG (Take, Route, Frequency, Duration) Notes Start Date End Date Status glipiZIDE 5 MG 1 tablet 30 minutes before breakfast Orally Once a day for 30 day(s) Active Pantoprazole Sodium 40 MG 1 tablet Orall y Once a day for 30 day(s) Active Valsartan 80 MG 1 tablet Orally Once a day for 30 day(s) Active IMMUNIZATIONS Vaccine Route Administration Date Status Comme nts Influenza Unknown 04/03/2024 Refused SOCIAL HISTORY Tobacco Use: Social History Observation Description Date Details (start date - stop date) Never Smoker NA - NA Sex Assigned At : Social History Observation Description Sex Assigned At Unknown Tobacco Use/Smoking Question Answer Notes Patient is a nonsmoker Alcohol Screen Question Answer Notes Did you have a drink containing alcohol in the p ast year? No Points 0 Interpretation Negative PROBLEMS Problem Type ICD Code Onset Dates Problem Status W/U Status Risk SNOMED Code Notes Problem Chronic GERD (K21.9) Active confirmed Gastroesophagea l reflux disease (675858036) Problem Abdominal bloating (R14.0) Active confirmed Abdominal bloat ing (728155335) Problem Gastroesophageal reflux disease without esophagitis (K21.9) Active confirmed Gastroesophagea l reflux disease without esophagitis (797837331) VITAL SIGNS Temperature 96.9 degrees Fahrenheit 04/03/2024 Blood pressure diastolic 00 mm Hg 04/03/2024 Height 5 ft 10 in in 04/03/2024 Blood pressure systolic 000 mm Hg 04/03/2024 Weight 213 lb 2 oz lbs 04/03/2024 BMI 30.58 kg/m2 04/03/2024 Encounters Encounter Location Date Provider Diagnosis [facility] Outpatient [address] [place] [phone] 07/04/2024 Xavier Nam Gastroesophageal ref lux disease without esophagitis K21.9 and Hiatal hernia K44.9 [facility] [address] [place] [phone] 04/03/2024 Xavier Nam Chronic GERD K21.9 a nd Abdominal bloating R14.0 [facility] [address] [place] [phone] 07/05/2024 Xavier Nam [facility] [address] [place] [address] 10/10/2024 Xavier Nam ASSESSMENTS Encounter Date Diagnosis Assessment Notes Treatment Notes Treatment Clinical Notes 07/04/2024 Gastroesophageal reflux disease without esophagitis (ICD-10 - K21.9) 07/04/2024 Hiatal hernia (ICD-1 0 - K44.9) 04/03/2024 Abdominal bloating (ICD-10 - R14.0) 04/03/2024 Chronic GERD (ICD-10 - K21.9) Use Pantoprazole as needed, watch diet, eat healthy, lose weight. PLAN OF TREATMENT Pending Test Test Name Order Date Celiac Panel 10 04/03/2024 Future Test Test Name Order Date UPPER GI ENDOSCOPY 04/03/2024 Insurance Providers Payer Name Payer Address Payer Phone Subscriber Number Group Number Insured Name Patient Relationship to Insured Coverage Start Date Coverage End Date [facility] [address] Attn Claims ABELARDO Woody [id number] MARI ABRAHAM Self - patient is the insured MEDICAL (GENERAL) HISTORY Medical History History ICD Code NIDDM HTN GERD Denies [place],CVA,Lung disease,renal disease Screening colonoscopy in Aug was negative, other than a hyperplastic polyp, with Dr. Campbell Upper endoscopy in 2020 at [facility] was negative Negative CT scan and abdominal ultrasoun d in 2020 Normal nuclear med gastric emptying stud y in 2023 Surgical History Surgery Date(Month/Year) Left hip replacement Right hand metal plate_ _Kienbokavita' disea se_ _lunate bone Umbilical hernia surgery with a mesh
--- OUTSIDE RECORDS SUMMARY | 2024-12-21 08:10 | XMS_ITS ---
Author Organization [facility] Address [address] [place] [address] Care Team Providers Care Storeroom Attendant Name Role Phone Da Eckert MD Primary Care Provider Indiraa Xavier Joiner Unavailable [phone] REASON FOR VISIT gerd, abdominal bloating PROBLEMS Problem Type ICD Code Onset Dates Problem Status W/U Status Risk SNOMED Code Notes Problem Gastroesophageal reflux disease without esophagitis (K21.9) Active confirmed Gastroesophagea l reflux disease without esophagitis (732645303) Encounters Encounter Location Date Provider Diagnosis [facility] [address] [place], [place] [phone] 07/04/2024 Xavier Nam Gastroesophageal ref lux disease without esophagitis K21.9 and Hiatal hernia K44.9 ASSESSMENTS Encounter Date Diagnosis Assessment Notes Treatment Notes Treatment Clinical Notes 07/04/2024 Gastroesophageal ref lux disease without esophagitis (ICD-10 - K21.9) 07/04/2024 Hiatal hernia (ICD-1 0 - K44.9) PLAN OF TREATMENT No Information
--- OUTSIDE RECORDS SUMMARY | 2024-12-21 08:10 | XMS_ITS ---
Author Organization [facility] Address [address] [place] [phone] Care Team Providers Care Blending Kettle Tender Name Role Phone Juwan Szymanski [phone] Encounters Encounter Location Date Provider Diagnosis [address] [address] 12/20/2024 Juwan Szymanski Plan Of Treatment Next Appt Details Provider Name:Juwan Szymanski, 12/27/2024 11:15:00 AM, [address] [place] [address], [phone], Progress Notes * PAREDES, AngelDOB:1975 ([age] yo M)Acc No.[id number]:12/20/2024 Progress Note Patient:?Angel PAREDES Provider:?Juwan Szymanski D.P.M. :1975???Age:49 Y???Sex:Male Chad e:12/20/2024 Address:[address] [place] [address] Subjective: * Chief Complaints: * ??? * Medical History:? Objective: * Vitals:? Assessment: Plan: * Treatment: * Images: * The named appointment provid er may or may not be the originator of this progress note, and it is not deemed complete until electronically signed by the appointment provider. Sign off status: Pending * Provider:?Juwan Szymansik D.P.M. Date:?04/2025 Generated for Rony diop/Jon/eTransmitting on:?12/21/2024 08:09 AM EST
--- OUTSIDE RECORDS SUMMARY | 2024-12-21 08:10 | XMS_ITS ---
Author Organization [facility] Address [address] [place] [address] Care Team Providers Care Farmworker Livestock Name Role Phone Da Eckert MD Primary Care Provider Unavaila Xavier Joiner Unavailable [phone] REASON FOR VISIT Abdominal pain Encounters Encounter Location Date Provider Diagnosis [facility] [address] [place] [phone] 10/10/2024 Xavier Nam PLAN OF TREATMENT No Information
--- OUTSIDE RECORDS SUMMARY | 2024-12-21 08:10 | XMS_ITS ---
Author Organization [facility] Address [address] [place] [phone] Care Team Providers Care Coffee Sampler Name Role Phone Da Eckert MD Primary Care Provider Xavier Rueda Unavailable [phone] MEDICATIONS Medication SIG (Take, Route, Frequency, Duration) Notes Start Date End Date Status Pantoprazole Sodium 40 MG 1 tablet Orall y Once a day for 30 day(s) Active Encounters Encounter Location Date Provider Diagnosis [facility] [address] [place] [phone] 07/05/2024 Xavier Nma PLAN OF TREATMENT Medication Medication Name Sig Start Date Stop Date Notes Pantoprazole Sodium 40 MG 1 tablet Orall y Once a day for 30 day(s)
--- NOTE | 2024-12-21 08:17 | A.OFFVIS_ITS ---
Vital Signs 12/21/24 08:22 Height 5 ft 9 in Weight 201 lb BMI 29.7 BP 134/64 Blood Pressure Location Lt brachial Position Sitting Pulse 59 Intake Visit Reasons: GERD/February's Pt Intake Note: Patient follow up for GERD/February pt Patient cc: abdominal bloating, with pain, acid reflex with burning sensation worse at night time, and constipation. Denies any other issues for today visit. Home Care Music Therapist Required: No Accompanied by: Self / Same As Patient Allergies lisinopril Allergy (Mild, Verified 12/21/24 08:16) Closed throat sulfamethoxazole [From Bactrim] Allergy (Mild, Verified 12/21/24 08:16) Rash trimethoprim [From Bactrim] Allergy (Mild, Verified 12/21/24 08:16) Rash fish derived [fish] Allergy (Unknown, Verified 12/21/24 08:16) Rash, Redness morphine [MORPHINE] Allergy (Unknown, Verified 12/21/24 08:16) Nausea and Vomiting Sulfa (Sulfonamide Antibiotics) Allergy (Unknown, Verified 12/21/24 08:16) rash Fish Containing Products Adverse Reaction (Unknown, Verified 12/21/24 08:16) Worsens Gout symptoms HPI HPI GERD/February's Pt: Details: [place]IS[place] [facility] [address] [place] [address] Office Visit Report Signed Patient: Angel Kuhn MR#: [id number] : 1975 Acct:[id number] Age/Sex: 48 / M ADM/SER Date: 01/25/24 Loc: HO.HGI ADM/SER Time:1343 Attending Provider: Cayla Tejada ANP-C cc: Da Eckert MD~ Intake Vital Signs 01/24/2414:14 Height 5 ft 9 in Weight 217 lb 13.067 oz BMI 32.2 BP 135/80 Blood Pressure Location Lt brachial Position Sitting Pulse 54 Pulse Source Pulse Oximeter Intake Visit Reasons: f/u GES Allergies lisinopril Allergy (Mild, Verified 01/25/24 14:16) Closed throatsulfamethoxazole [From Bactrim] Allergy (Mild, Verified 01/25/24 14:16) Rashtrimethoprim [From Bactrim] Allergy (Mild, Verified 01/25/24 14:16) Rashfish derived [fish] Allergy (Unknown, Verified 01/25/24 14:16) Rash, Rednessmorphine [MORPHINE] Allergy (Unknown, Verified 01/25/24 14:16) Nausea and VomitingSulfa (Sulfonamide Antibiotics) Allergy (Unknown, Verified 01/25/24 14:16) rashFish Containing Products Adverse Reaction (Unknown, Verified 01/25/24 14:16) Worsens Gout symptoms HPI f/u GES HPI Details Assessment & Plan (1) Chronic idiopathic constipation: Code(s): K59.04 - Chronic idiopathic constipation (2) Chronic GERD: Code(s): K21.9 - Gastro-esophageal reflux disease without esophagitis (3) Early satiety: Code(s): R68.81 - Early satiety (4) Abdominal bloating: Code(s): R14.0 - Abdominal distension (gaseous) Plan Patient was supposed to follow up in 6 weeks and this was in August 2023 so apparently he was lost follow-up for a small amount of time. He is moving his bowels well but is having more acid brash and severe abd bloating after eating. He feels like its gas because it carries up into my throat. He did not feel the reglan helped at 5mg, before we consider increase this I will get a GES and a trial of simethicone. He did not have any adverse effects from the metoclopramide. He continues on pantoprazole qd. He also continues on his Linzess 290 micro g. ROV 4 weeks. and after GES Orders: Orders NM gastric emptyin g study Today R14.0 - Abdominal distension (gaseou s), R68.81 - Early satiety Medications: New simethicone aft er meals 180 mg PO QID 30 days 120 caps 3RF Refilled linaclotide (Linze ss) First thing in the morning wi th a full glass of water 290 mcg PO QAM 30 days 30 caps 6RF pantoprazole (Prot javier) 40 mg PO DAILY 30 days 30 tabs 6RF On Hold metoclopramide HCl (Reglan) Hold Comment: Doctor's Order 5 mg PO QIDACHS 1 20 tabs 6RF K30 - Functional d yspepsia GASTRIC EMPTYING STUDY 01/17/24 MPRESSION: Normal 4-hour solid food gastric emptying study. TODAY'S VISIT He says he has completely changed his diet and his bloating is greatly improved. He stopped drinking coffee, stopped eating more salads and using Mrs Dash and avoiding Croatian food and is using whole wheat bread adn almond mild instead of regular milk (? lactose intolerant). We will stop the reglan completely since his GES was normal and he has done well w/o it. He is also taking the simethicone tid with meals, so this could have an impact in his bloating as well. He continues on his Linzess, and pantoprazole along with the simthicone. ROV 3 mos. PFS Medical History Delayed gastric emptying Back pain Neck pain Possible exposure to STD Tendinitis of left elbow Rash Fibroma of skin Obesity Screening for prostate cancer Adult general medical exam Diabetes mellitus with coincident hypertension Gout Sinusitis History of cardiac murmur Avascular necrosis of bone of hip Chronic GERD Sinus infection Diabetes mellitus Dysuria Diabetes COVID-19 Chronic GERD Cough Surgical History History of surgery on right wrist History of esophagogastroduodenoscopy (EGD) H/O colonoscopy H/O total hip arthroplasty H/O wrist surgery History of umbilical hernia repair History of wisdom tooth extraction History of tonsillectomy Family History Father No problems noted. Mother Colon cancer Diabetes HypertensionFamily/Other Diabetes Hypertension Social History Housing: Apartment Alcohol intake: never Patient Tobacco Use Status: Never used Tobacco e-Cigarette/Vaping Use: Never Used Second Hand Smoke Exposure: Yes service: No Current occupational status: disabled Current occupational exposures/hazards: No Cognitive needs: No Hearing needs: No Vision needs: Yes Review of Systems Const Denies fatigue, Denies fever(s), Denies night sweats, Denies poor appetite and Denies weight loss ENT Reports Normal hearing present, Denies dental pain, Denies dysphagia, Denies hearing loss, Denies mouth pain, Denies odynophagia, Denies throat swelling, Denies tongue swelling and Reports other (Dentition adequate) Card Reports no additional complaints Resp Reports no additional complaints GI Details: Denies abdominal pain, Denies melena, Reports bloating, Denies hematochezia, Reports constipation, Denies GI cramping, Denies dysphagia, Denies excessive flatus, Denies early satiety, Reports heartburn, Denies diarrhea, Denies nausea, Denies odynophagia, Denies vomiting and Denies hematemesis Skin/Breast Denies pruritus, Denies lesions, Denies rash and Denies jaundice Neuro Reports Normal hearing present and Denies Abnormal speech present Endo Denies fatigue Aller/Immun Denies throat swelling and Denies tongue swelling Physical Exam Vital Signs: Last Vital Signs Pulse 54 01/25/24 14:14 BP 135/80 01/25/24 14:14 BMI result Body Mass Index 32.2 Const General: cooperative, no acute distress, well developed and well groomed Nutritional Appearance: well nourished and obese Orientation/consciousness: oriented to person, oriented to place and oriented to time Limitations: No language barrier HEENT Head: Yes normocephalic and Yes atraumatic Eyes General: appearance normal, both eyes and all related structures Pupils: Equal, round and reactive pupils present Neck Neck: Yes normal visual inspection and Yes no lymphadenopathy Thyroid: Thyroid normal Resp Effort & Inspection: normal respiratory effort and able to speak in complete sentences Auscultation: clear to auscultation bilaterally Cardio Rate: regular rate Rhythm: regular rhythm Heart sounds: Normal, physiologic split S2 sound present Peripheral pulses: radial pulses present and posterior tibial pulses present GI Inspection: No distended, No Abdominal panniculus present and Yes obesity Palpation (GI): Soft to palpation, nontender, no guarding, not rigid and No hepatosplenomegaly present Percussion: Yes normal to percussion Auscultation: normal bowel sounds Rectal Exam - Male: Yes deferred Skin General skin exam: no rashes or lesions noted, turgor normal, skin not dry, no jaundice, No spider nevi and no striae Rashes: no rashes Nails: normal Neuro General: oriented to person, oriented to place and oriented to time Cranial nerves: Yes Equal, round and reactive pupils present and Yes Normal hearing present Speech: No Abnormal speech present Extrem General: Yes normal to inspection, No clubbing, No cyanosis and No edema Psych Appearance: grossly normal and well kempt Mental Status: mental status grossly normal Speech and movement: Normal speech and movement present Affect: normal affect Attitude: cooperative Thought process: Normal thought process present and not confabulating Thought content: Normal thought content present Insight: Fair insight present (Psych) Judgement: Fair judgement present (Psych) Results Reviewed Results Reviewed: GASTRIC EMPTYING STUDY 01/17/24 MPRESSION: Normal 4-hour solid food gastric emptying study. Assessment & Plan Assessment & Plan (1) Early satiety: Code(s): R68.81 - Early satiety (2) Abdominal bloating: Code(s): R14.0 - Abdominal distension (gaseous) (3) Chronic idiopathic constipation: Code(s): K59.04 - Chronic idiopathic constipation (4) Chronic GERD: Code(s): K21.9 - Gastro-esophageal reflux disease without esophagitis Plan He says he has completely changed his diet and his bloating is greatly improved. He stopped drinking coffee, stopped eating more salads and using Mrs Dash and avoiding Croatian food and is using whole wheat bread adn almond mild instead of regular milk (? lactose intolerant). We will stop the reglan completely since his GES was normal and he has done well w/o it. He is also taking the simethicone tid with meals, so this could have an impact in his bloating as well. He continues on his Linzess, and pantoprazole along with the simthicone. UPPER ENDOSCOPY WITH DR. TOLENTINO IMPRESSION: 1. Small hiatal hernia, gastroesophageal reflux. 2. Rule out Duque esophagus. 3. Rule out Helicobacter pylori. 4. Rule out celiac disease. PLAN: The results of biopsies will be checked. He will continue with pantoprazole either daily or as needed for reflux symptoms. He was reminded to stay on a careful and healthy diet to minimize reflux symptoms. He will otherwise see me on a p.r.n. basis. TODAY'S VISIT Patient is here today for requested visit. Previously patient was seen by Terrell for acid reflux and constipation. Patient went for 2nd opinion to see Dr. Tolentino and was told to lose weight and try to exercise. Recommendation was made for patient to pantoprazole for reflux and avoid dietary triggers. Patient reports that he has been exercising almost every day. Patient lost 15 lb since last visit with February. Patient reports that his symptoms are severe abdominal bloating. Patient tries to eat healthy. Increase fiber in his diet. Stopped taking all medications prescribed . Started taking omeprazole as this is the only 1 that is working. Patient purchased that [id number]-nzr-[id number] 20 mg and takes 2 capsules daily. Patient denies any nausea or vomiting. Admits to be constipated. Acid reflux controlled with omeprazole. Patient is trying to avoid dietary triggers. Does not eat late at night. [facility] Medical History (Updated 10/04/24 @ 00:03 by Mahnaz Kong) Physical exam Delayed gastric emptying Back pain Neck pain Possible exposure to STD Tendinitis of left elbow Rash Fibroma of skin Obesity Screening for prostate cancer Adult general medical exam Diabetes mellitus with coincident hypertension Gout Sinusitis History of cardiac murmur Avascular necrosis of bone of hip Chronic GERD Sinus infection Diabetes mellitus Dysuria Diabetes COVID-19 Chronic GERD Cough Surgical History History of surgery on right wrist History of esophagogastroduodenoscopy (EGD) H/O colonoscopy H/O total hip arthroplasty H/O wrist surgery History of umbilical hernia repair History of wisdom tooth extraction History of tonsillectomy Family History Father No problems noted. Mother Colon cancer Diabetes Hypertension Family/Other Diabetes Hypertension Social History Housing: Apartment Alcohol intake: never Patient Tobacco Use Status: Never used Tobacco Tobacco use type: Cigarette e-Cigarette/Vaping Use: Never Used Second Hand Smoke Exposure: Yes service: No Current occupational status: disabled Current occupational exposures/hazards: No Cognitive needs: No Hearing needs: No Vision needs: No Review of Systems Const Denies weight gain and Denies weight loss ENT Reports no additional complaints, Denies dysphagia and Denies odynophagia Card Reports no additional complaints Resp Reports no additional complaints GI Denies abdominal pain, Denies belching, Denies melena, Reports bloating, Denies change in bowel habits, Reports constipation, Denies dysphagia, Denies excessive flatus, Denies dyspepsia, Reports heartburn, Denies diarrhea, Denies loose stools, Denies nausea, Denies odynophagia and Denies vomiting Reports no additional complaints Musc Reports no additional complaints Neuro Reports no additional complaints Psych Reports no additional complaints Endo Reports no additional complaints Physical Exam Const General: healthy appearing, no acute distress and well developed Nutritional Appearance: well nourished Orientation/consciousness: patient oriented x3 Resp Effort & Inspection: normal respiratory effort, able to speak in complete sentences, no tracheal deviation and symmetric chest movement Auscultation: clear to auscultation bilaterally Cardio Rate: regular rate GI Inspection: Yes normal to inspection and No distended Palpation (GI): Soft to palpation, not firm, nontender and No hepatosplenomegaly present Auscultation: normal bowel sounds General: Yes no CVA tenderness Back/Spine/Pelvis Back: no CVA tenderness Skin General skin exam: elasticity normal, turgor normal and dry skin Neuro General: patient oriented x3 Psych Appearance: grossly normal Mental Status: mental status grossly normal Assessment & Plan Assessment & Plan (1) Abdominal bloating: Code(s): R14.0 - Abdominal distension (gaseous) Category: Medical (2) Chronic GERD: Code(s): K21.9 - Gastro-esophageal reflux disease without esophagitis Category: Medical (3) Constipation: Code(s): K59.00 - Constipation, unspecified Qualifiers: Constipation type: slow transit constipation Qualified Code(s): K59.01 - Slow transit constipation Plan Continue omeprazole every morning half an hour before breakfast. Avoid dietary triggers and late night snacking. Staying upright for minimum 3 hours after meals discussed patient. Patient will take Dulcolax tablets every evening to help him move his bowels. Severe abdominal bloating. Discussed with patient low FODMAP diet. List of food recommended as well as list of food to avoid given to patient. Patient will follow-up in 3 months, sooner on as needed basis. He is agreeable to this plan and verbalizes understanding of instructions. He was given the opportunity to ask questions and all questions answered. Thank you for allowing me to participate in his care Medications: New omeprazole 40 mg PO DAILY 30 caps 3RF K21.9 - Gastro-esophageal reflux disease without esophagitis bisacodyl (Dulcolax (bisacodyl)) 10 mg (2 x 5 mg) PO BEDTIME 60 tabs 4RF Discontinued omeprazole magnesium (Prilosec OTC) Discontinued Reason: Doctor's Order 40 mg (2 x 20 mg) PO DAILY 30 days 60 tabs 3RF K21.9 - Gastro-esophageal reflux disease without esophagitis Coding Level of Care Code Est Pt Level 4 (08722) Complex EM visit Add On G2211 Diagnoses Abdominal bloating R14.0 Chronic GERD K21.9 Slow transit constipation K59.01 Constipation type: slow transit constipation Time Spent (min) 40 Comment 25 minutes spent with patient and additional 15 minutes spent reviewing his records
== END | disposition home or self-care (01) ==
PROVIDERS: PCP Internal Medicine; Visit Provider Nurse Practitioner Family
CPT/HCPCS: 99214; G2211

== ENCOUNTER → 2024-12-21 08:03 | Outpatient (BNVA) | payer OTHER, SELFPAY | PROVIDERS: PCP Internal Medicine; Visit Provider Nurse Practitioner Family | DX: K21.9 Gastro-esophageal reflux disease without esophagitis (principal); K59.04 Chronic idiopathic constipation; R14.0 Abdominal distension (gaseous); K59.01 Slow transit constipation | CPT/HCPCS: 99212 ==

== ENCOUNTER 2025-01-18 17:53 | Emergency (ER) | payer OTHER, SELFPAY ==
[2025-01-18 18:09] VITALS: BP 145/77; PULSE 59; RESP 16; TEMP 36.4; O2SAT 96; BMI 28.8
--- NOTE | 2025-01-18 18:11 | ED.GENADULT ---
HPI - General Adult General Chief complaint: Skin/Abscess/Foreign Body Stated complaint: left foot red/swollen Time Seen by Provider: 01/18/25 21:14 Source: patient Mode of arrival: ambulatory Limitations: no limitations History of Present Illness ED Provider: Dr. Rg Bynum HPI narrative: 49-year-old male with a history of diabetes mellitus, angioedema, hypertension, GERD who presents emergency department for evaluation of 4 days of pruritus, burning and redness to his left foot. Patient states I do weeks prior did develop pruritus of the foot and was seen at an urgent care clinic. He was felt to have after these foot and was prescribed ketoconazole. He states that this did not improve itchiness and over the past 4 days developed redness and burning. Denied fever, chills, fatigue. He states this is 1st episode of redness and pruritus in his foot. Patient denies any injury Related Data Home Medications ?Medication ?Instructions ?Recorded ?Confirmed multivitamin (Daily Multi-Vitamin 1 tab PO DAILY 04/06/23 12/19/24 tablet) Previous Rx's ?Medication ?Instructions ?Recorded blood-glucose meter (FreeStyle #1 ea 08/31/23 Lite Meter kit) lancets 28 gauge (FreeStyle #100 ea 08/31/23 Lancets) glipizide 5 mg tablet 5 mg PO DAILY #90 tabs 04/19/24 valsartan 80 mg tablet 80 mg PO DAILY #90 tabs 04/20/24 blood sugar diagnostic (FreeStyle #100 ea 09/18/24 Lite Strips) bisacodyl 5 mg tablet,delayed 10 mg (2 x 5 mg) PO BEDTIME #60 12/21/24 release (Dulcolax (bisacodyl)) tabs omeprazole 40 mg capsule,delayed 40 mg PO DAILY #90 caps 12/28/24 release cephalexin 500 mg capsule 500 mg PO QID 7 days #28 caps 01/18/25 doxycycline hyclate 100 mg tablet 100 mg PO Q12H 7 days #14 tabs 01/18/25 Allergies Allergy/AdvReac Type Severity Reaction Status Date / Time lisinopril Allergy Mild Closed Verified 01/18/25 18:11 throat sulfamethoxazole Allergy Mild Rash Verified 01/18/25 18:11 [From Bactrim] trimethoprim [From Bactrim] Allergy Mild Rash Verified 01/18/25 18:11 fish derived [fish] Allergy Unknown Rash, Verified 01/18/25 18:11 Redness morphine [MORPHINE] Allergy Unknown Nausea and Verified 01/18/25 18:11 Vomiting Sulfa (Sulfonamide Allergy Unknown rash Verified 01/18/25 18:11 Antibiotics) Fish Containing Products AdvReac Unknown Worsens Verified 01/18/25 18:11 Gout symptoms Review of Systems Review of Systems: Yes all other systems are reviewed and are negative [facility] Past Medical History Medical History (Updated 01/19/25 @ 00:00 by Mahnaz Kong) Physical exam Delayed gastric emptying Back pain Neck pain Possible exposure to STD Tendinitis of left elbow Rash Fibroma of skin Obesity Screening for prostate cancer Adult general medical exam Diabetes mellitus with coincident hypertension Gout Sinusitis History of cardiac murmur Avascular necrosis of bone of hip Chronic GERD Sinus infection Diabetes mellitus Dysuria Diabetes COVID-19 Chronic GERD Cough Surgical History History of surgery on right wrist History of esophagogastroduodenoscopy (EGD) H/O colonoscopy H/O total hip arthroplasty H/O wrist surgery History of umbilical hernia repair History of wisdom tooth extraction History of tonsillectomy Family History Family History Father No problems noted. Mother Colon cancer Diabetes Hypertension Family/Other Diabetes Hypertension Social History Social History Housing: Apartment Alcohol intake: never Patient Tobacco Use Status: Never used Tobacco Tobacco use type: Cigarette e-Cigarette/Vaping Use: Never Used Second Hand Smoke Exposure: Yes Advance Directives: No Advance Directives Information Provided: No Do you have a plan to hurt others: No Plan service: No Current occupational status: disabled Current occupational exposures/hazards: No Cognitive needs: No Hearing needs: No Vision needs: No Physical Exam ED Vital Signs: Vital Signs - 24 hr 01/18/25 18:09 Temperature 97.5 F Pulse Rate 59 Respiratory Rate 16 Blood Pressure 145/77 H Pulse Oximetry 96 Oxygen Delivery Method Room Air BMI result Body Mass Index 28.8 Vital signs revealed an elevated blood pressure otherwise unremarkable. Exam left foot: The patient does have dry skin to his left foot with peeling of the skin but no clear ulcer or lesions noted. Patient does have erythema over the ventral surface of the foot sparing the toes, this erythema is warm to the touch and does juan carlos with pressure. Course Course Course Narrative: RME performed by Phylicia Gallagher PA-C. Patient is a 49 year old assigned male at presenting to the emergency department with left foot pain, redness, and swelling. Patient states that he was recently diagnosed with a fungal disease of the left foot and given a cream. Patient states that the redness has increased and is worsening. Patient states that he is a diabetic and concerned. Detailed physical exam and review of systems are deferred to the entry level accountant. Labs ordered. Patient placed back in the waiting room pending room availability and results. Medications Administered Discontinued Medications Generic Name Dose Route Start Last Admin Trade Name Freq PRN Reason Stop Dose Admin Cephalexin HCl 500 mg 01/18/25 21:28 01/18/25 21:50 Cephalexin 500 Mg Capsule PO 01/18/25 21:29 500 mg ONCE ONE Administration Doxycycline Monohydrate 100 mg 01/18/25 21:28 01/18/25 21:50 Doxycycline Monohydrate 100 Mg Capsule PO 01/18/25 21:29 100 mg ONCE ONE Administration Medical Decision Making Medical Decision Making MDM Narrative: 49-year-old male with a history of diabetes mellitus, angioedema, hypertension, GERD who presents emergency department for evaluation of 4 days of pruritus, burning and redness to his left foot. Patient states I do weeks prior did develop pruritus of the foot and was seen at an urgent care clinic. He was felt to have after these foot and was prescribed ketoconazole. He states that this did not improve itchiness and over the past 4 days developed redness and burning. Denied fever, chills, fatigue. He states this is 1st episode of redness and pruritus in his foot. Patient denies any injury . Physical examination did reveal dry skin with areas is can that are peeling but no clear lesions or ulcers of the foot. Patient does have erythema to the ventral aspect of the foot sparing the toes, erythema is warm to the touch and blanches with pressure. Differential diagnosis: Includes but is not limited to Allergic reaction, contact dermatitis, cellulitis Course: my independent interpretation of the patient's laboratory evaluation is as follows: CBC was normal. Bicarb was elevated 31. Glucose was elevated 126. LFTs were normal. Lipase normal. ESR and CRP not elevated. Patient was prescribed doxycycline 100 mg q.12 hours x7 days and cephalexin 500 mg 4 times a day for 7 days. He was given his 1st dose of these medications here in the emergency. He was advised to stop using the ketoconazole cream. He was given printed and verbal instructions and discharged home. Admission/Observation Consideration of admission/observation: Escalation of care including admission/observation considered ( Yes) Lab Data MDM Lab Attestation statement: I reviewed the patient's lab results. 01/18/25 18:28 01/18/25 18:28 Labs: Lab Results 01/18/25 Range/Units 18:28 WBC 8.7 (4.8-10.8) X10*3/uL RBC 5.19 (4.60-5.80) X10*6/uL Hgb 14.9 (14.0-18.0) g/dl Hct 43.5 (42.0-52.0) % MCV 83.8 (80.0-98.0) fL MCH 28.7 (27.0-33.0) pg MCHC 34.3 (31.0-36.0) g/dl RDW 13.3 (11.0-16.0) % Plt Count 279 (160-400) X10*3/uL MPV 10.5 (9.4-12.4) fL Immature Gran % (Auto) 0.2 (0.0-0.4) % Neut % (Auto) 53.0 (45-73) % Lymph % (Auto) 37.8 (20-40) % Brewster % (Auto) 7.1 (2-11) % Eos % (Auto) 1.3 (0-4) % Baso % (Auto) 0.6 (0-2) % Lymph # (Auto) 3.3 (1.2-4.9) X10*3/uL Brewster # (Auto) 0.6 (0.1-1.2) X10*3/uL Eos # (Auto) 0.1 (0.0-0.4) X10*3/uL Baso # (Auto) 0.1 (0.0-0.2) X10*3/uL Abs Immat Gran (auto) 0.02 (0.00-0.03) X10*3/uL Absolute Neuts (auto) 4.6 (2.0-8.3) x10*3/uL Absolute Nucleated RBC 0.000 (0.0-0.012) X10*3/uL Nucleated RBC % (auto) 0.0 (0.0-0.2) /100WBC ESR 6 (0-15) MM/HR Sodium 141 (135-145) mmol/L Potassium 4.1 (3.3-5.1) mmol/L Chloride 101 (96-108) mmol/L Carbon Dioxide 31 H (22-29) mmol/L Anion Gap 13 (12-20) BUN 19 H (9-16) mg/dL Creatinine 1.03 (0.5-1.4) mg/dL Estim Creat Clear Calc 96.3 Estimated GFR > 60 Random Glucose 126 H (60-115) mg/dL Calcium 9.7 (8.4-10.2) mg/dL Magnesium 1.8 (1.6-2.6) mg/dL Total Bilirubin 0.4 (0.0-1.0) mg/dL AST 21 (5-37) U/L ALT 23 (0-40) U/L Alkaline Phosphatase 68 (39-117) U/L C-Reactive Protein 0.46 (< or = 0.50) mg/dL Total Protein 8.1 H (6.5-8.0) g/dL Albumin 4.4 (3.5-5.0) g/dL Prescription Management I considered prescription management with: Antibiotic ( Doxycycline and cephalexin) Chronic Conditions Patient?s care impacted by: Diabetes Discharge Plan Discharge Clinical Impression: Cellulitis of foot, left Patient Disposition: Home, Self-Care Additional Instructions: Cellulitis Discharge Instructions You have an infection of your skin. This is called cellulitis. This is usually caused by bacteria on your skin that gets under your skin and then causes the infection Take Keflex 500 mg pills, 1 pill 4 times a day for 1 week. Take doxycycline 100 mg pills every 12 hours for 1 week This is an antibiotic that should help your body fight off the infection. Keep the area of cellulitis elevated to help reduce swelling in the infected area and this helps with the healing process Also apply a heating pad on low or a warm compress for 15 minutes, 4-6 times a day. This will increase the blood flow to the area and will bring white blood cells to the area which will help your body fight off the infection. Take Motrin(ibuprofen) 200mg pills, 3 pills every 6 hours as needed for pain. Also take Tylenol( acetaminophen) 325 mg pills, 2 pills every 4 hours as needed for pain. Stop using the ketoconazole cream. You should use a [id number] moisturizing cream to keep the skin moist on both feet, this will help prevent skin breakdown. Watch for signs of worsening infection include increased redness, fever, chills, weakness, increased pain, increased redness, increased swelling or red streaks going away from the area of infection. If you develop any of these symptoms or any other symptoms that are concerning to you, see your doctor immediately or return to the Emergency Department. Follow up with your doctor in 3 days for a recheck Please read the other printed instructions that we printed for you. Prescriptions: New cephalexin 500 mg capsule 500 mg PO QID 7 Days Qty: 28 0RF doxycycline hyclate 100 mg tablet 100 mg PO Q12H 7 Days Qty: 14 0RF No Action (DME) blood-glucose meter [FreeStyle Lite Meter] Kit See Rx Instructions .ROUTE .MEDSUPPLY Qty: 1 0RF Rx Instructions: As directed (DME) lancets [FreeStyle Lancets] 28 gauge misc See Rx Instructions .ROUTE .MEDSUPPLY Qty: 100 12RF Rx Instructions: As directed once a day glipizide 5 mg tablet 5 mg PO DAILY Qty: 90 8RF valsartan 80 mg tablet 80 mg PO DAILY Qty: 90 1RF (DME) FreeStyle Lite Strips Strip See Rx Instructions .ROUTE .MEDSUPPLY Qty: 100 12RF Rx Instructions: As directed once a day omeprazole 40 mg capsule,delayed release(DR/EC) 40 mg PO DAILY Qty: 90 1RF multivitamin [Daily Multi-Vitamin] Tablet 1 tab PO DAILY bisacodyl [Dulcolax (bisacodyl)] 5 mg tablet,delayed release (DR/EC) 10 mg PO BEDTIME Qty: 60 4RF Interventions: ED Discharge Assessment Last Done: 01/18/25 21:51 Discharge Date/Time: 01/18/25 21:51 Print Language: [place]
[2025-01-18 18:32] LABS: MANUAL DIFF FLAG NO
[2025-01-18 18:54] LABS: Alanine Aminotransferase 23 U/L (0-40); Albumin Level 4.4 g/dL (3.5-5.0); Alkaline Phosphatase 68 U/L (39-117); Anion Gap 13 (12-20); Aspartate Amino Transferase 21 U/L (5-37); Bilirubin Total 0.4 mg/dL (0.0-1.0); Blood Urea Nitrogen 19 mg/dL (9-16); C Reactive Protein 0.46 mg/dL (< or = 0.50); Calcium 9.7 mg/dL (8.4-10.2); Carbon Dioxide 31 mmol/L (22-29); Chloride 101 mmol/L (96-108); Creatinine Clr Calc Pharmacy 96.3; Estimated Glomerular Filt Rate > 60; Glucose Random 126 mg/dL (60-115); Magnesium 1.8 mg/dL (1.6-2.6); Potassium 4.1 mmol/L (3.3-5.1); Sodium 141 mmol/L (135-145); Total Protein 8.1 g/dL (6.5-8.0)
[2025-01-18 19:07] LABS: Basophils Absolute Auto 0.1 X10*3/uL (0.0-0.2); Basophils Percent Auto 0.6 % (0-2); Eosinophils Absolute Auto 0.1 X10*3/uL (0.0-0.4); Eosinophils Percent Auto 1.3 % (0-4); Hematocrit 43.5 % (42.0-52.0); Hemoglobin 14.9 g/dl (14.0-18.0); Imm Gran Abs Auto 0.02 X10*3/uL (0.00-0.03); Imm Gran Pct Auto 0.2 % (0.0-0.4); Lymphocytes Absolute Auto 3.3 X10*3/uL (1.2-4.9); Lymphocytes Percent Auto 37.8 % (20-40); Mean Corpuscular HGB Conc 34.3 g/dl (31.0-36.0); Mean Corpuscular Hemoglobin 28.7 pg (27.0-33.0); Mean Corpuscular Volume 83.8 fL (80.0-98.0); Mean Platelet Volume 10.5 fL (9.4-12.4); Monocytes Absolute Auto 0.6 X10*3/uL (0.1-1.2); Monocytes Percent Auto 7.1 % (2-11); Neutrophils Absolute Auto 4.6 x10*3/uL (2.0-8.3); Platelet Count 279 X10*3/uL (160-400); Red Blood Count 5.19 X10*6/uL (4.60-5.80); Red Cell Distribution Width 13.3 % (11.0-16.0); White Blood Count 8.7 X10*3/uL (4.8-10.8)
[2025-01-18 19:57] LABS: Erythrocyte Sedimentation Rate 6 MM/HR (0-15)
--- OUTSIDE RECORDS SUMMARY | 2025-01-18 20:37 | XMS_ITS ---
Author Organization [facility] Address [address] [place] [phone] Care Team Providers Care Pelletizer Name Role Phone Da Eckert MD Primary Care Provider Unavaila Juwan Márquez [phone] REASON FOR VISIT recent A1C Encounters Encounter Location Date Provider Diagnosis [facility] [address] [place] [phone] 01/17/2025 Juwan Szymanski Plan Of Treatment No Information Progress Notes * Angel GARYDOB:1975 ([age] yo M)Acc No.[id number]:01/17/2025 Patient:?Angel GARY :1975???Age:49 Y???Sex:Male Address:[address] [place] [address] * true * Date:? Generated for Rony diop/Jon/eTransmitting on:?01/18/2025 08:37 PM EST
--- OUTSIDE RECORDS SUMMARY | 2025-01-18 20:37 | XMS_ITS | Patient Health Record ---
Author Organization [facility] Address [address] [place] [address] Care Team Providers Care Heater Helper Name Role Phone Da Eckert MD Primary Care Provider Xavier Rueda [phone] Allergies Allergen (clinical drug ingredient) Drug/Non Drug Allergy documented on EMR Reaction Allergy Type Onset Date Status morphine Morphine Unknown Drug Allergy Active Fish Flavor Unknown Drug Allergy Activ e dicyclomine Bentyl Unknown Drug Allergy Activ e Results Component Value Reference Range Notes Celiac Disease Panel Reviewed date:04/15/2024 07:04:22 PM Interpretation: Performing Lab:[facility], [address] [place] [phone] Notes/Report: Immunoglobulin A 226 47-310 mg/dL THIS TEST WAS PERFORMED AT: [facility] [address] [place] [phone] SERGIO FOURNIER MD Transglutaminase IgA <1.0 Value [...] Blood Reviewed date:07/04/2024 04:38:08 PM Interpretation: Performing Lab:[facility], [address] [place] [phone] Notes/Report: Glucose, Whole Blood 127 60-115 mg/dL METER # : [id number] Pathology Reviewed date:07/07/2024 10:47:50 PM Interpretation: Performing Lab:[facility], [address] [facility], [place] [address] Notes/Report: ---- Name: Taye Kuhn Age/Sex: 49/M : 1975 Unit#: [id number] Attend Dr: Xavier Nam MD Re07/04/24 Status : [facility] Location: [facility] Disch: ---- SPEC : [id number] RECD : 07/04/24 STATUS: SAMRA SILVA NUM: [id number] GILBERTO: 07/04/241136 [facility] DR: Xavier Nam MD ENTERED: 07/04/24-13 30 SP TYPE: Surgical OTHR DR: Da Eckert MD ORDERED: HE Stain/6, Gross Micro L4/3, IHC, Special st. 2, H. pylori, AB/PAS Addendum Addendum 1 Entered: 07/06/24-1210 No metaplastic grant es are seen, supported by AB/PAS stains (C); no Helicobacter organisms are seen, supported by H. pylori immunostain (B). No change is made to the diagnoses. Addendum Signed (signature on file) Trino Moseley MD 07/06/24 1211 ---- Diagnosis A. Duodenum, biopsy: Duodenal mucosa with preserved villi and no specific change. B. Gastric antrum, biopsy: Gastric antral mucosa with mild reactive changes and focal minimal chronic inac tive inflammation; negative for intestinal metaplasia and dysplasia. C. Esophagogastric junction, at 39 cm, biopsy: Squamocolumnar mucosa with minimal chronic active inflammation and focal multilayered epithelium; no intestinal metaplasia identified on initia l levels; negative for dysplasia. Comment: (B): Immunostain for H. pylori pending; addendum to follow. (C): Additional leve l with AB/PAS stain pending; addendum to follow. Multilayered epithelium may be associated with Duque's esophagus and follow-up is warranted. Clinical History Pre-Op Dx: Reflux Post-Op Dx: Reflux, hiatal hernia Microscopic Description Microscopic sections reviewed. Material Received A. Descending duodenum B. Gastric antrum C. EG junction at 39 cm CONTINUED ON NEXT PAGE ---- Name: GaryTaye Spain Age/Sex: 49/M [facility] 1975 [id number]#: [id number] Attend Dr: Xavier Nam MD Re07/04/24 Status : [facility] Location: [facility] Disch: ---- SPEC : [id number] RECD : 07/04/24 STATUS: SAMRA SILVA NUM: [id number] GILBERTO: 07/04/24-[address] [facility] [address]: Xavier Nam MD ENTERED: 07/04/24-13 30 SP TYPE: Surgical OTHR DR: Da Eckert MD ORDERED: HE Stain/6, Gross Micro L4/3, IHC, Special st. 2, H. pylori, AB/PAS Gross Description Received in three parts. Part A: Received in formalin labeled ?descending duodenum? are 4 mosocso-pink irregular tissue fragments each measu ring 0.3 cm, submitted in toto in a cassette labeled A. Part B: Received in formalin labeled ?gastric antrum? are 3 moscoso-pink irregular and rectangular tissue fragments ranging from 0.25-0.45 cm, submitted in toto in a cassette labeled B. Part C: Received in formalin labeled ?EG junction 39 cm? are 3 moscoso-pink irregular tissue fragments ranging fr om 0.25-0.3 cm, submitted in toto in a cassette labeled C. CEDS Special studies orde red and performed: Immunostain for H. pylori on B1; AB/PAS stains on C1. Copies To: Da Eckert MD [facility] Primary Care,[place] [address] [place] [address] Xavier Nam MD [facility] [address] [place] [address] ---- Signed (signature on file) Vielka Soto 07/05/24 1251 (signature on file) Trino Moseley MD 07/06/24 1211 ---- END OF REPORT Reason For Referral No Information Medications Medication SIG (Take, Route, Frequency, Duration) Notes Start Date End Date Status glipiZIDE 5 MG 1 tablet 30 minutes before breakfast Orally Once a day for 30 day(s) Active Pantoprazole Sodium 40 MG 1 tablet Orall y Once a day for 30 day(s) Active Valsartan 80 MG 1 tablet Orally Once a day for 30 day(s) Active Immunizations Vaccine Route Administration Date Status Comme nts Influenza Unknown 04/03/2024 Refused Social History Tobacco Use: Social History Observation Description Date Details (start date - stop date) Never Smoker NA - NA Tobacco Use/Smoking Question Answer Notes Patient is a nonsmoker Alcohol Screen Question Answer Notes Did you have a drink containing alcohol in the p ast year? No Points 0 Interpretation Negative Problems Problem Type SNOMED Code ICD Code Onset Dates Problem Status W/U Status Risk Notes Problem Abdominal bloating (677193145) Abdominal bloating (R14.0) Active confirmed Problem Gastroesophageal reflux disease without esophagitis (812273271) Gastroesophageal reflux disease without esophagitis (K21.9) Active confirmed Problem Gastroesophageal reflux disease (437591510) Chronic GERD (K21.9) Active confirmed Vital Signs Temperature 96.9 degrees Fahrenheit 04/03/2024 Blood pressure diastolic 00 mm Hg 04/03/2024 Height 5 ft 10 in in 04/03/2024 Blood pressure systolic 000 mm Hg 04/03/2024 Weight 213 lb 2 oz lbs 04/03/2024 BMI 30.58 kg/m2 04/03/2024 Encounters Encounter Location Date Provider Diagnosis [facility] [address]patient [address] [place], [place] [phone] 07/04/2024 Xavier Nam Gastroesophageal ref lux disease without esophagitis K21.9 and Hiatal hernia K44.9 [facility] [address] [place] [address] 04/03/2024 Xavier Nam Chronic GERD K21.9 a nd Abdominal bloating R14.0 [facility] [address] [place] [address] 07/05/2024 Xavier Nam [facility] [address] [place] [address] 10/10/2024 Xavier Nam Assessments Encounter Date Diagnosis (ICD Code) Assessment Notes Treatment Notes Treatment Clinical Notes Section Notes 07/04/2024 Gastroesophageal reflux disease without esophagitis (ICD-10 - K21.9) 07/04/2024 Hiatal hernia (ICD-10 - K44.9) 04/03/2024 Abdominal bloating (ICD-10 - R14.0) Overall, Mari appears well. We did have a detailed discussion today regarding his abdominal complaints. I advised him that I think a lot of his upper GI complaints are probably in relation to dietary indiscretions and and being overweight. As such, I did advise him that he needs to make a concerted effort to eat healthier and lose some weight. However, given his ongoing symptoms despite a PPI, I did advise him that I think a repeat upper endoscopy would be helpful to further evaluate for any significant hiatal hernia, esophagitis, Duque's esophagus, gastritis, and/or celiac disease. Full consent was obtained from him for this, including risks of bleeding and perforation. The procedure will be done with monitored anesthesia care. In the meantime, I did advise him to use pantoprazole either daily if need be or, alternatively, to try stopping it altogether and simply see how he does by staying on a healthier diet. I shall check laboratories for celiac disease and will also obtain duodenal biopsies to assess for celiac disease and gastric biopsies to rule out H. pylori. Mari was comfortable with this plan. Thank you again for allowing me to participate in Mari's care. I shall continue to keep you advised of his progress. 04/03/2024 Chronic GERD (ICD-10 - K21.9) Use Pantoprazole as needed, watch diet, eat healthy, lose weight. Overall, Mari appears well. We did have a detailed discussion today regarding his abdominal complaints. I advised him that I think a lot of his upper GI complaints are probably in relation to dietary indiscretions and and being overweight. As such, I did advise him that he needs to make a concerted effort to eat healthier and lose some weight. However, given his ongoing symptoms despite a PPI, I did advise him that I think a repeat upper endoscopy would be helpful to further evaluate for any significant hiatal hernia, esophagitis, Duque's esophagus, gastritis, and/or celiac disease. Full consent was obtained from him for this, including risks of bleeding and perforation. The procedure will be done with monitored anesthesia care. In the meantime, I did advise him to use pantoprazole either daily if need be or, alternatively, to try stopping it altogether and simply see how he does by staying on a healthier diet. I shall check laboratories for celiac disease and will also obtain duodenal biopsies to assess for celiac disease and gastric biopsies to rule out H. pylori. Mari was comfortable with this plan. Thank you again for allowing me to participate in Mari's care. I shall continue to keep you advised of his progress. Plan Of Treatment Pending Test Test Name Order Date Celiac Panel 10 04/03/2024 Future Test Test Name Order Date UPPER GI ENDOSCOPY 04/03/2024 Insurance Providers Payer Name Payer Address Payer Phone Subscriber Number Group Number Insured Name Patient Relationship to Insured Coverage Start Date Coverage End Date [facility] [address] Attn Claims ABELARDO [place] [id number] MARI KUHN Self - patient is the insured Medical (General) History Medical History History ICD Code NIDDM HTN GERD Denies NC,CVA,Lung disease,renal disease Screening colonoscopy in Aug was negative, other than a hyperplastic polyp, with Dr. Campbell Upper endoscopy in 2020 at [facility] was negative Negative CT scan and abdominal ultrasoun d in 2020 Normal nuclear med gastric emptying stud y in 2023 Surgical History Surgery Date(Month/Year) Left hip replacement Right hand metal plate_ _Tori' disea se_ _lunate bone Umbilical hernia surgery with a mesh
--- OUTSIDE RECORDS SUMMARY | 2025-01-18 20:37 | XMS_ITS ---
Author Organization [facility] Address [address] [place] [address] Care Team Providers Care Registered Nurse Post Partum Name Role Phone Da Eckert MD Primary Care Provider Xavier Rueda [phone] Medications Medication SIG (Take, Route, Frequency, Duration) Notes Start Date End Date Status Pantoprazole Sodium 40 MG 1 tablet Orall y Once a day for 30 day(s) Active Encounters Encounter Location Date Provider Diagnosis [facility] [address] [place] [phone] 07/05/2024 Xavier Nam Plan Of Treatment Medication Medication Name Sig Start Date Stop Date Notes Pantoprazole Sodium 40 MG 1 tablet Orall y Once a day for 30 day(s) Progress Notes * MARI ABRAHAMDOB:1974 (49 yo M)Acc No.[id number]:07/05/2024 Patient:?MARI ABRAHAM :1975???Age:49 Y???Sex:Male Address:[address] [place] [address] [address], [place], [address] * Refills? Refill Pantoprazole Sodium Tablet Delayed Release, 40 MG, Orally, 30, 1 tablet, Once a day, 30 day(s), Refills=6 * true * Date:? Generated for Rony diop/Jon/Dustyitting on:?01/18/2025 08:37 PM EST
--- OUTSIDE RECORDS SUMMARY | 2025-01-18 20:37 | XMS_ITS ---
Author Organization [facility] Address [address] [place] [address] Care Team Providers Care Plastic Block Boiler Reliner Name Role Phone Da Eckert MD Primary Care Provider Xavier Rueda [phone] REASON FOR VISIT Abdominal pain Encounters Encounter Location Date Provider Diagnosis [facility] [address] [place] [phone] 10/10/2024 Xavier Nam Plan Of Treatment No Information Progress Notes * MARI ABRAHAMDOB:1974 (49 yo M)Acc No.[id number]:10/10/2024 Patient:?MARI ABRAHAM :1975???Age:49 Y???Sex:Male Address:[address] [place] [address] [address], [place], [address] * true * Date:? Generated for Rony diop/Jon/eTransmitting on:?01/18/2025 08:37 PM EST
--- OUTSIDE RECORDS SUMMARY | 2025-01-18 20:37 | XMS_ITS ---
Author Organization [facility] Address [address] [place] [address] Care Team Providers Care Backpackers Manager Name Role Phone Da Eckert MD Primary Care Provider Juwan Aldrich Unavailable [phone] Allergies Allergen (clinical drug ingredient) Drug/Non Drug Allergy documented on EMR Reaction Allergy Type Onset Date Status benztropine Benztropine Mesylate Unknown Drug Allergy Active fish oils Fish Oil Unknown Drug Allergy Active morphine Morphine Unknown Drug Allergy Active REASON FOR VISIT Last Visit PCP 12/21/24, At Risk Footcare, Skin Problem Medications Medication SIG (Take, Route, Fr equency, Duration) Notes Start Date End Date Status Ketoconazole 2 % to feet Externally T wice a day for 21 days Active Pantoprazole Sodium Active Valsartan Active glipiZIDE Active Social History Tobacco Use: Social History Observation Description Date Details (start date - stop date) Never Smoker NA - NA Tobacco use other than smoking: Question Answer Notes Are you an other tobacco user? No Tobacco Control (Standard) Question Answer Notes Tobacco use: Nonsmoker Additional Findings: Tobacco non-user Current no nsmoker Vital Signs Height 5ft 10 in in 01/11/2025 Weight 201 lbs 01/11/2025 BMI 28.84 kg/m2 01/11/2025 Blood pressure systolic 166 mm Hg 01/11/20 25 Blood pressure diastolic 94 mm Hg 025 Heart Rate 52 /min 01/11/2025 Procedures Procedure Date Ordered Date Performed Result Body Sit e T3555-IXILNSPM DYSTROPHIC NAILS ANY # 01/11/2025 N/A Encounters Encounter Location Date Provider Diagnosis [address] [place] [address] 01/11/2025 Juwan Szymanski Type 2 diabetes alayna itus with diabetic polyneuropathy E11.42 and Tinea pedis of left foot B35.3 Assessments Encounter Date Diagnosis (ICD Code) Assessment Notes Treatment Notes Treatment Clinical Notes Section Notes 01/11/2025 Type 2 diabetes mellitus with diabetic polyneuropathy (ICD-10 - E11.42) 01/11/2025 Tinea pedis of left foot (ICD-10 - B35.3) 01/11/2025 Other Plan Of Treatment Medication Medication Name Sig Start Date Stop Date Notes Ketoconazole 2 % to feet Externally T wice a day for 21 days Pending Test Test Name Order Date R8764-BIPPHAZV DYSTROPHIC NAILS ANY # Next Appt Details Follow Up: prn, Reason: Procedure Notes * Category Sub-Category Detail Notes Nail Reduction Nail Reduction , (-27) Trimming of all dystrophic nails - Due to the at risk nature of the patients medical condition as documented in the exam findings, performance of this nail treatment is medically necessary as its management by an unskilled/untrained nonprofessional would put this patients foot and overall health at risk. Therefore, the dystrophic nails, in locations as stated and described in the exam TA, T1, T2, T3, T4, T5, T6, T7, T8, T9, were debrided by the phisician of record to reduce/remove overall nail length and girth, by manual and electrical means with use of a nail nipper and/or dremel, to more viable healthy nail plate or bed tissue - G0127 Progress Notes * Angel GARYDOB:1975 ([age] yo M)Acc No.[id number]:01/11/2025 Progress Note Patient:?GARY Angel Provider:?Juwan Szymanski D.P.M. :1975???Age:49 Y???Sex:Male Chad e:01/11/2025 Address:[address] [place], [place] [id number] Subjective: * Chief Complaints: * ???Last Visit PCP 12/21/24[facility] FootcareSkin Problem * HPI: ???Skin problems:?Nature:?scaling , redness.?Location:?dorsal aspect left foot.?Duration:?a few weeks.?Onset/Cause:?unknown.?Course:?worse.?Aggravated by:?shoe gear.?Treatments:?none.?Severity/Quality:?moderate.? * ROS:?General/Constitutional:?Nausea?denies.?Vomiting?denies.?Hunger Thirst?denies.?Loss appetite?denies.?Chills?denies.?Fatigue?denies.?Fever?denies.?Night Sweats?denies.?Unexplained weight loss?denies.?Unexplained weight gain?denies.?HEENTM:?Dentures?denies.?Dizziness?denies.?Glasses/contacts?denies.?Retinopathy?den ies.?Blurred/double vision?denies.?TMJ?denies.?Discharge/drainage?denies.?Implants?denies.?Sore throat?denies.?Dental implants?denies.?Hard of hearing ?denies.?Difficulty chewing/swallowing/speaking?denies.?Nose bleeds?denies.?Sore mouth?denies.?Respiratory:?On O xygen?denies.?Pneumonia/pleurisy?denies.?Bronchitis?denies.?Emphysema?denies.?Co ughing?denies.?Cough blood?denies.?Shortness of breath?denies.?Wheezing?denies.?Cardiovascular:?Pacemaker?denies.?MVP?denies.?WPW?denies.?CHF?denies.?Heart attack?denies.?Septal defect?denies.?Rapid beat?denies.?Chest pain ?denies.?Atrial Fib.?denies.?Murmur/Palpitations?denies.?Gastrointestinal:?Hemorrhoids?denies.?Stomach/Abdominal pain?denies.?Dark blood stool?denies.?Irritable bowel ?denies.?Constipation?denies.?Diarrhea?denies.?Hematology:?Swelling?denies.?Clots?denies.?Varicose Veins?denies.?Bruising?denies.?Bleeding problem?denies.?Genitourinary:?Blood urine?denies.?Frequent/Painfu/urination/bladder control?denies.?Kidney stones?denies.?Infection (UTI)?denies.?Nephropathy?denies.?sex trans dis (STD)?denies.?Prostate?denies.?Musculoskeletal:?Hammertoes?denies.?Bunions?denies.?Back Pain?denies.?Muscle Cramps/ Resting?denies.?Muscle cramps / walking?denies.?Generalized aches and pains?denies.?Weakness?denies.?Integ.:?Eid?denies.?Scars?denies.?Corns/calluses?denies.?Ingrown nails?admits.?Painful nails?admits.?Open Sores?denies.?Rashes?admits.?Neurologic:?Difficulty sleeping?denies.?Brain disorder?denies.?Numbness?denies.?Balance t rouble?denies.?Confusion?denies.?Fainting/blackouts?denies.?Tingling?denies.?Nir mors?denies.? * Medical History:? * Surgical History:?left hip [...] gym. ?Marital status: Single. ?Occupation: Unemployed, disabled. * Medications:?TakingglipiZIDE Valsartan Pantoprazole Sodium Taking glipiZIDE Taking Valsartan Taking Pantoprazole Sodium Not-Taking/PRNKetoconazole 2 % Cream to feet Externally Once a day Medication List reviewed and reconciled with the patientNot-Taking/PRN Ketoconazole 2 % Cream to feet Externally Once a day Medication List reviewed and reconciled with the patient * Allergies:?MorphineFish OilB enztropine Mesylateyes[Allergies Verified] Objective: * Vitals:?Ht:5ft 10 in, Wt:201 , BMI:28.84, Shoe size:9, BP:166/94mm Hg, HR:52/min, BS:124, Ht-cm: 177.8 cm, Wt-k.17 kg. * Examination: ???Ophthalmology Referral: ?DIABETES EYE EXAM?Procedure Performed:?Yes ?Date of Exam Performed?08/27/2024?Neurological: ?SENSORY:?Neurological exam demonstrates, reduced light touch sensation, reduced sharp/dull discrimination , reduced vibration sensation, in a stocking fashion, B/L, 5.07 monofilament test performed at plantar aspects of 5 varied sites per foot shows sensation, reduced, B/L.?Nails: ?NAILS are:?Elongated, overgrown, dystrophic, lytic, greater than 3mm thick, discolored and friable with crumbly malodorous subungual debris, with dull to no pain on palpation due to neuropathy , TA, T1, T2, T3, T4, T5, T6, T7, T8, T9.?Orthopedic: ?MUSCLE STRENGTH:?5/5 all groups in a symmetrical fashion, B/L.?FOOTWEAR:?Shoe gear were inspected and noted to be worn, but in good condition giving proper support at the present time.?Vascular: ?DP PULSES (B):?3/4 , B/L.?PT PULSES (B):?2/4, B/L.?CAPILLARY FILL TIME:?immediate, all digits, B/L.?TROPHIC CONDITION-TEXTURE/ELASTICITY/TURGOR/HAIR GROWTH (B):?normal.?TEMPERTURE GRADIENT (C):?normal, warm to cool, proximal to distal, B/L.?General Examination: ?GENERAL APPEARANCE:?Reveals a pleasant, alert, well nourished, well- developed, well hydrated individual, who demonstrates proper attention to hygiene/body habitus, and is in no acute distress, Pt serves as own historian for office visit today.?ORIENTED:?person, place, and time.?FOOT EXAM:?Lower Extremity Neurological Exam performed:?Yes ?Visual exam of foot performed:?Yes ?Date?01/11/2025 ?Sensory testing performed:?sensations diminished ?Sensory and motor testing performed:?strength normal ?Pedal pulse taking performed:?2+ ?Footwear Evaluation?Footwear Evaluation performed:?Yes?Dermatologic: ?TINEA PEDIS:?fine scaling skin on an erythematous base, dorsal aspect left foot.? Assessment: * Assessment: 1.?Type 2 diabetes mellitus with diabetic polyneuropathy - E11.42 (Primary)???2.?Tinea pedis of left foot - B35.3???Specify :Acute problem, Uncomplicated (3) Rx Management (4)??? Plan: * Treatment: 2.?Tinea pedis of left foot? Start Ketoconazole Cream, 2 %, to feet, Externally, Twice a day, 21 days, 30, Refills 2.?? * Procedures:?Nail Reduction:?Nail Reduction?, (-27) Trimming of all dystrophic nails - Due to the at risk nature of the patients medical condition as documented in the exam findings, performance of this nail treatment is medically necessary as its management by an unskilled/untrained nonprofessional would put this patients foot and overall health at risk. Therefore, the dystrophic nails, in locations as stated and described in the exam TA, T1, T2, T3, T4, T5, T6, T7, T8, T9, were debrided by the phisician of jose a to reduce/remove overall nail length and girth, by manual and electrical means with use of a nail nipper and/or dremel, to more viable healthy nail plate or bed tissue - G0127.? * Procedure Codes:?G0127 RANDAL ING DYSTROPHIC NAILS ANY # * Preventive Medicine:? ??Counseling:?Discussion:?-13: Office or other outpatient visit for the evaluation and management of an established patient, which required a medically appropriate history [...] at the time of visit.? * Follow Up:?prn * Images: * Sign off status: Completed true * Provider:?Juwan Szymanski D.P.M. Date:?12/16 Generated for Rony diop/Jon/Leo on:?01/18/2025 08:37 PM EST History and Physical Notes * HPI (History of Present Illness) Category Sub-Category Detail Notes Category Not es Skin problems Nature: scaling , redness Location: dorsal aspect left f oot Duration: a few weeks Onset/Cause: unknown Course: worse Aggravated by: shoe [...] scaling ski n on an erythematous base, dorsal aspect left foot Orthopedic FOOTWEAR: Shoe gear were i nspected and noted to be worn, but in good condition giving proper support at the present time MUSCLE STRENGTH: 5/5 all groups in a symmetrical fashion, B/L General Examination GENERAL APPEARANCE: Reveals a pleasant, alert, well nourished, well-developed, well hydrated individual, who demonstrates proper attention to hygiene/body habitus, and is in no acute distress, Pt serves as own historian for office visit today FOOT EXAM: Lower Extremity Neurological Exa m performed:: Yes Visual exam of foot performed:: Yes Date: 01/11/2025 Sensory testing performed:: sensations d iminished Sensory and motor testing performed:: [facility] normal Pedal pulse taking performed:: 2+ ORIENTED: person, place, and t marty Footwear Evaluation Footwear Evaluation performe d:: Yes Ophthalmology Referral DIABETES EYE EXAM Procedure Perform ed:: Yes ?Date of Exam Performed: 08/27/2024 Vascular DP PULSES (B): 3/4 , B/L PT PULSES (B): 2/4, B/L CAPILLARY FILL TIME: immediate, all digi ts, B/L TEMPERTURE GRADIENT (C): normal, warm to cool, proximal to distal, B/L TROPHIC CONDITION-TEXTURE/ELASTICITY/TURGOR/HAIR GROWTH (B): normal Nails NAILS are: Elongated, overg rown, dystrophic, lytic, greater than 3mm thick, discolored and friable with crumbly malodorous subungual debris, with dull to no pain on palpation due to neuropathy , TA, T1, T2, T3, T4, T5, T6, T7, T8, T9
--- OUTSIDE RECORDS SUMMARY | 2025-01-18 20:37 | XMS_ITS ---
Author Organization [facility] Address [address] [place] [address] Care Team Providers Care Terrapin Fisher Name Role Phone Da Eckert MD Primary Care Provider Unavaila Juwan Márquez [phone] REASON FOR VISIT Diab w/ red rash Encounters Encounter Location Date Provider Diagnosis [facility] [address] [place] [phone] 01/09/2025 Juwan Szymanski Plan Of Treatment No Information Progress Notes * Angel GARYDOB:1975 ([age] yo M)Acc No.[id number]:01/09/2025 Patient:?Angel GARY :1975???Age:49 Y???Sex:Male Address:[address] [place] [address] * true * Date:? Generated for Rony diop/Jon/eTransmitting on:?01/18/2025 08:37 PM EST
--- OUTSIDE RECORDS SUMMARY | 2025-01-18 20:38 | XMS_ITS ---
Author Organization [facility] Address [address] [place] [address] Care Team Providers Care Director On Air Name Role Phone Da Eckert MD Primary Care Provider Xavier Rueda Unavailable [phone] REASON FOR VISIT gerd, abdominal bloating Problems Problem Type SNOMED Code ICD Code Onset Dates Problem Status W/U Status Risk Notes Problem Gastroesophageal reflux disease without esophagitis ([id number]) Gastroesophageal reflux disease without esophagitis (K21.9) Active confirmed Encounters Encounter Location Date Provider Diagnosis [facility] [address] [place], [place] [phone] 07/04/2024 Xavier Nam Gastroesophageal ref lux disease without esophagitis K21.9 and Hiatal hernia K44.9 Assessments Encounter Date Diagnosis (ICD Code) Assessment Notes Treatment Notes Treatment Clinical Notes Section Notes 07/04/2024 Gastroesophageal reflux disease without esophagitis (ICD-10 - K21.9) 07/04/2024 Hiatal hernia (ICD-10 - K44.9) Plan Of Treatment No Information Progress Notes * MARI ABRAHAMDOB:1974 (49 yo M)Acc No.[id number]:07/04/2024 EGD/MAC Patient:?MARI ABRAHAM Provider:?Xavier Nam MD :1975???Age:49 Y???Sex:Male Chad e:07/04/2024 Address:[address] [place] [address] [address], [facility] Pcp:Da Eckert MD Subjective: * Chief Complaints: * ???1. Gerd, abdominal bloati ng. * Medical History:? Objective: * Vitals:? Assessment: * Assessment: 1.?Gastroesophageal reflux d isease without esophagitis - K21.9 (Primary)???2.?Hiatal hernia - K44.9??? Plan: * Treatment: * Procedure Codes:?61929 UPPER GI ENDOSCOPY, BIOPSY * * The named appointment provid er may or may not be the originator of this progress note, and it is not deemed complete until electronically signed by the appointment provider. Sign off status: Pending * Provider:?Xavier Nam MD Date:? 024 Generated for Rony diop/Jon/eTradhasmitting on:?01/18/2025 08:38 PM EST
--- NOTE | 2025-01-18 21:21 | PC.NURSE ---
Patient wanted to leave ED. Encouraged to stay. Returned to RP room. Spoke with who plans to evaluate the patient shortly. Patient agreed to stay a few more minutes. Ambulates with steady gait.
[2025-01-18] MEDS: Doxycycline Monohydrate 100 MG CAPSULE PO (21:50)
[2025-01-18] MEDS: cephALEXin 500 MG CAPSULE PO (21:50)
[2025-01-18 21:51] VITALS: BP 145/77; PULSE 59; RESP 16; TEMP 36.4; O2SAT 96
== END 2025-01-18 21:51 | disposition home or self-care (01) ==
PROVIDERS: Physician Assistant Medical; Emergency Provider Emergency Medicine Emergency Medical Services; PCP Internal Medicine
DX: L03.116 Cellulitis of left lower limb (principal); E11.65 Type 2 diabetes mellitus with hyperglycemia; I10 Essential (primary) hypertension
CPT/HCPCS: 36415; 80053; 83735; 85025; 85652; 86140; 99282; 99283

== ENCOUNTER 2025-02-11 08:21 | Emergency (ER) | payer OTHER, SELFPAY ==
--- NOTE | ~2025-02-11 | XR_ITS ---
EXAMINATION: XR CHEST CLINICAL INFORMATION: cough COMPARISON: 10/03/2024, 08/01/2023. TECHNIQUE: 2 views of the chest were obtained. FINDINGS: The cardiac, hilar, and mediastinal contours are normal. The lungs are clear bilaterally. There is no pneumothorax or pleural effusion. There is no focal osseous or soft tissue abnormality. XR/XR chest 2V IMPRESSION: Normal chest. Electronically signed by: Didier Iglesias MD 02/11/2025 09:05 AM EDT
[2025-02-11 08:28] VITALS: BP 171/80; PULSE 60; RESP 18; TEMP 36.1; O2SAT 99; BMI 31.7
--- NOTE | 2025-02-11 09:36 | ED_ITS ---
HPI - General Adult General Chief complaint: Upper Respiratory Symptoms Stated complaint: Stuffy Nose Etc Time Seen by Provider: 02/11/25 09:35 Source: patient Mode of arrival: ambulatory Limitations: no limitations History of Present Illness ED Provider: Phylicia Gallagher PA-C HPI narrative: Patient is a 49 year old assigned male at with a history of DM, HTN, GERD, and BPH presenting to the emergency department today with a cough and sinus pain. Patient states that he has had a cough for the last 3 weeks and has been having sinus pressure / pain. Patient denies any dizziness, lightheadedness, abdominal pain, nausea, vomiting, fever, chills, blurry vision, double vision, loss of vision, chest pain, difficulty breathing, shortness of breath, back pain, night sweats, pain with urination, increased urinary frequency, increased urinary urgency, blood in his urine or stool, syncope or a near syncopal episode, recent trauma or falls, bowel incontinence, bladder incontinence, or a ny other complaints at this time. Onset (ago): week(s) (3) Relieving factors: none Exacerbating factors: none Associated symptoms: cough and other (sinus pain) Treatments prior to arrival: none Related Data Home Medications ?Medication ?Instructions ?Recorded ?Confirmed multivitamin (Daily Multi-Vitamin 1 tab PO DAILY 04/06/23 12/19/24 tablet) Previous Rx's ?Medication ?Instructions ?Recorded blood-glucose meter (FreeStyle #1 ea 08/31/23 Lite Meter kit) lancets 28 gauge (FreeStyle #100 ea 08/31/23 Lancets) glipizide 5 mg tablet 5 mg PO DAILY #90 tabs 04/19/24 valsartan 80 mg tablet 80 mg PO DAILY #90 tabs 04/20/24 blood sugar diagnostic (FreeStyle #100 ea 09/18/24 Lite Strips) bisacodyl 5 mg tablet,delayed 10 mg (2 x 5 mg) PO BEDTIME #60 12/21/24 release (Dulcolax (bisacodyl)) tabs omeprazole 40 mg capsule,delayed 40 mg PO DAILY #90 caps 12/28/24 release cephalexin 500 mg capsule 500 mg PO QID 7 days #28 caps 01/18/25 doxycycline hyclate 100 mg tablet 100 mg PO Q12H 7 days #14 tabs 01/18/25 benzonatate 100 mg capsule 100 mg PO BID PRN cough 7 days #14 02/11/25 caps doxycycline hyclate 100 mg tablet 100 mg PO BID 7 days #14 tabs 02/11/25 Allergies Allergy/AdvReac Type Severity Reaction Status Date / Time lisinopril Allergy Mild Closed Verified 02/11/25 08:30 throat sulfamethoxazole Allergy Mild Rash Verified 02/11/25 08:30 [From Bactrim] trimethoprim [From Bactrim] Allergy Mild Rash Verified 02/11/25 08:30 fish derived [fish] Allergy Unknown Rash, Verified 02/11/25 08:30 Redness morphine [MORPHINE] Allergy Unknown Nausea and Verified 02/11/25 08:30 Vomiting Sulfa (Sulfonamide Allergy Unknown rash Verified 02/11/25 08:30 Antibiotics) Fish Containing Products AdvReac Unknown Worsens Verified 02/11/25 08:30 Gout symptoms Review of Systems Constitutional: Constitutional: Reports no additional constitutional complaints, Denies chills, Denies fever(s) and Denies night sweats Eyes: Eyes: Reports no additional eye complaints, Denies blurry vision, Denies change in vision, Denies diplopia, Denies eye discharge, Denies loss of vision and Denies eye pain ENT: Denies dizziness, Reports sinus pain and Reports sinus pressure Cardiovascular: Cardiovascular: Reports no additional cardiovascular complaints, Denies chest pain, Denies lightheadedness, Denies Loss of Consciousness and Denies dyspnea Respiratory: Respiratory: Reports no additional respiratory complaints, Reports cough and Denies dyspnea Gastrointestinal: Gastrointestinal: Reports no additional gastrointestinal complaints, Denies abdominal pain, Denies melena, Denies hematochezia, Denies change in bowel habits and Denies change in stool character Genitourinary: Genitourinary: Reports no additional male genitourinary complaints, Denies hematuria, Denies oliguria, Denies difficulty urinating, Denies dysuria, Denies urinary frequency, Denies urinary hesitancy, Denies urinary incontinence and Denies urinary urgency Musculoskeletal: Musculoskeletal: Reports no additional musculoskeletal complaints, Denies numbness and Denies tingling Neurologic: Denies dizziness, Denies loss of vision, Denies numbness and Denies tingling Psychiatric: Psychiatric: Reports no additional psychiatric complaints Endocrine: Endocrine: Reports no additional endocrine complaints Hematologic/Lymphatic: Hematologic/Lymphatic: Reports no additional hematologic/lymphatic complaints Allergic/Immunologic: Allergic/Immunologic: Reports no additional allergic/immunologic complaints PMFSH Past Medical History Attestation statement: The following information was validated with the patient. Source: old records reviewed and nursing notes reviewed Medical History Physical exam Delayed gastric emptying Back pain Neck pain Possible exposure to STD Tendinitis of left elbow Rash Fibroma of skin Obesity Screening for prostate cancer Adult general medical exam Diabetes mellitus with coincident hypertension Gout Sinusitis History of cardiac murmur Avascular necrosis of bone of hip Chronic GERD Sinus infection Diabetes mellitus Dysuria Diabetes COVID-19 Chronic GERD Cough Surgical History History of surgery on right wrist History of esophagogastroduodenoscopy (EGD) H/O colonoscopy H/O total hip arthroplasty H/O wrist surgery History of umbilical hernia repair History of wisdom tooth extraction History of tonsillectomy Family History Family History Father No problems noted. Mother Colon cancer Diabetes Hypertension Family/Other Diabetes Hypertension Social History Social History Housing: Apartment Alcohol intake: never Patient Tobacco Use Status: Never used Tobacco Tobacco use type: Cigarette e-Cigarette/Vaping Use: Never Used Second Hand Smoke Exposure: Yes Advance Directives: No Advance Directives Information Provided: Yes service: No Current occupational status: disabled Current occupational exposures/hazards: No Cognitive needs: No Hearing needs: No Vision needs: No Physical Exam ED Vital Signs: Vital Signs - 24 hr 02/11/25 08:28 02/11/25 09:53 Temperature 96.9 F 96.9 F Pulse Rate 60 60 Respiratory Rate 18 18 Blood Pressure 171/80 H 171/80 H Pulse Oximetry 99 99 Oxygen Delivery Method Room Air BMI result Body Mass Index 31.7 Const General: cooperative, no acute distress, alert and awake Nutritional Appearance: well nourished Orientation/consciousness: patient oriented x3 Limitations: no limitations HENMT Head: Yes normal to inspection and Yes atraumatic Ears: hearing grossly normal bilaterally and external ears normal General nose exam: Normal external nose present, no nasal discharge noted and no epistaxis Face and sinus: Yes normal facial exam, No abrasion and No laceration Mouth: Normal oral and palatal mucosa present, no drooling and no muffled voice Eyes General: appearance normal, both eyes and all related structures Periorbital: periorbital findings normal Eyelids: Yes eyelids normal Conjunctivae: conjunctivae normal Pupils: Equal, round and reactive pupils present EOM: EOMs intact bilaterally Neck Neck: Yes normal visual inspection, Yes full ROM and Yes no lymphadenopathy Chest Chest palpation & inspection: normal inspection of the chest Resp Effort & Inspection: normal respiratory effort and able to speak in complete sentences GI Inspection: Yes normal to inspection Neuro General: patient oriented x3, moves all extremities and CN's II-XI intact bi laterally Cranial nerves: Yes Equal, round and reactive pupils present Cognition (Neuro): normal cognition Extrem General: Yes normal to inspection, Yes full ROM and Yes capillary refill normal Psych Appearance: grossly normal Mental Status: mental status grossly normal Affect: normal affect Attitude: cooperative Thought process: Normal thought process present Thought content: Normal thought content present Insight: Good insight present (Psych) Medical Decision Making Medical Decision Making MDM Narrative: Patient is a 49 year old assigned male at with a history of DM, HTN, GERD, and BPH presenting to the emergency department today with a cough and sinus pain. Patient's physical exam was unremarkable. Patient's chest x-ray showed no acute process. Patient refused viral testing such as COVID-19, influenza, and RSV. I explained my physical exam findings as well as all test results to the patient. I answered all questions asked by the patient. Patient's clinical presentation is most consistent with sinusitis with a cough. I stressed the importance of the patient taking his medication as directed (either prescribed or as the over the counter packaging recommends). I stressed the importance of the patient following up with his primary care provider. I stressed the importance of the patient returning to the emergency department immediately if his symptoms were to worsen or if he were to develop any dizziness, shortness of breath, difficulty breathing, chest pain, blurry vision, loss of vision, nausea, vomiting, abdominal pain, fever, chills, back pain, or any other complaints. Patient verbalized agreement and understanding with this treatment plan and discharge. Differential Diagnosis Differential Diagnoses: The differential diagnosis associated with the presentation includes Cough URI COVID-19 Influenza RSV Sinusitis Admission/Observation Consideration of admission/observation: Escalation of care including admission/observation considered Patient would have been admitted to the hospital had his work up had any findings where hospital admission was appropriate and his clinical presentation warranted hospital admission. Independent Interpretation I performed an independent interpretation of an: Plain X-Ray Interpretation: My interpretation is in agreement with the radiologist's impression of this imaging study. EXAMINATION: XR CHEST CLINICAL INFORMATION: cough COMPARISON: 10/03/2024, 08/01/2023. TECHNIQUE: 2 views of the chest were obtained. FINDINGS: The cardiac, hilar, and mediastinal contours are normal. The lungs are clear bilaterally. There is no pneumothorax or pleural effusion. There is no focal osseous or soft tissue abnormality. XR/XR chest 2V IMPRESSION: Normal chest. Electronically signed by: Didier Iglesias MD 02/11/2025 09:05 AM EDT RP Dictated By: Didier Iglesias MD Signed By: Electronically signed by Didier Iglesias MD 02/11/25 0905: Radiology Impression Discussion of test interpretation with radiology: I have reviewed the radiologist's reading. Prescription Management I considered prescription management with: Antibiotic (patient prescribed an antibiotic for sinusitis) Chronic Conditions Patient?s care impacted by: Diabetes and Hypertension Discharge Plan Discharge Clinical Impression: Sinusitis, Cough Patient Disposition: Home, Self-Care Instructions: Sinusitis (ED), Acute Cough (ED) Additional Instructions: Please avoid direct sunlight while on the antibiotic. Please keep the medication out of reach from children - they can be toxic / deadly. Follow up with your primary care provider. Return to the emergency department immediately if your symptoms worsen or if you develop any numbness, tingling, dizziness, shortness of breath, difficulty breathing, chest pain, blurry vision, loss of vision, nausea, vomiting, abdominal pain, fever, chills, back pain, or any other complaints. Please see the information below about our Patient Portal. If you are not yet enrolled in the [facility] Patient Portal, you will receive an enrollment email invitation following your visit to any [facility] setting. You may also self-enroll in the Patient Portal by visiting our website: [email or web address] The following information is required to access the Patient Portal: - Your [facility] Medical Record Number - Your personal home email address (must match what is in your electronic medical record, Registration staff can assist with this) - Name - Date of Capabilities of the Patient Portal: - Message some providers - View upcoming appointments - Access your health summary, medical history, and visit history - View current conditions and allergies - View procedure and lab results - View your medications, including guidelines, side effects, and precautions - Complete pre-appointment questionnaires requested by your provider - Ready summary reports of your office visits and procedures To access the Patient Portal Mobile [employer], follow these directions: - Search [employer] in the [employer] Store or [employer] Store - Download the [employer] - Search for [facility] - Enter your login/password Prescriptions: New benzonatate 100 mg capsule 100 mg PO BID PRN (Reason: cough) 7 Days Qty: 14 0RF doxycycline hyclate 100 mg tablet 100 mg PO BID 7 Days Qty: 14 0RF No Action (DME) blood-glucose meter [FreeStyle Lite Meter] Kit See Rx Instructions .ROUTE .MEDSUPPLY Qty: 1 0RF Rx Instructions: As directed (DME) lancets [FreeStyle Lancets] 28 gauge misc See Rx Instructions .ROUTE .MEDSUPPLY Qty: 100 12RF Rx Instructions: As directed once a day glipizide 5 mg tablet 5 mg PO DAILY Qty: 90 8RF valsartan 80 mg tablet 80 mg PO DAILY Qty: 90 1RF (DME) FreeStyle Lite Strips Strip See Rx Instructions .ROUTE .MEDSUPPLY Qty: 100 12RF Rx Instructions: As directed once a day omeprazole 40 mg capsule,delayed release(DR/EC) 40 mg PO DAILY Qty: 90 1RF cephalexin 500 mg capsule 500 mg PO QID 7 Days Qty: 28 0RF doxycycline hyclate 100 mg tablet 100 mg PO Q12H 7 Days Qty: 14 0RF multivitamin [Daily Multi-Vitamin] Tablet 1 tab PO DAILY bisacodyl [Dulcolax (bisacodyl)] 5 mg tablet,delayed release (DR/EC) 10 mg PO BEDTIME Qty: 60 4RF Referrals: [facility] Family Medicine [Provider Group] (Call to establish and follow up with a primary care provider. If you already have a primary care provider, please follow up with them.) [facility] Primary Care, [place] [Provider Group] (Call to establish and follow up with a primary care provider. If you already have a primary care provider, please follow up with them.) [facility] [Provider Group] (Call to establish and follow up with a primary care provider. If you already have a primary care provider, please follow up with them.) [facility] [Provider Group] (Call to establish and follow up with a primary care provider. If you already have a primary care provider, please follow up with them.) Interventions: ED Discharge Assessment Last Done: 02/11/25 09:53 Discharge Date/Time: 02/11/25 09:54 Print Language: Bahamian
[2025-02-11 09:53] VITALS: BP 171/80; PULSE 60; RESP 18; TEMP 36.1; O2SAT 99
== END 2025-02-11 09:54 | disposition home or self-care (01) ==
PROVIDERS: Emergency Provider Emergency Medicine
DX: J32.9 Chronic sinusitis, unspecified (principal); R05.9 Cough, unspecified
CPT/HCPCS: 71046; 99282; 99283

== ENCOUNTER → 2025-02-11 08:33 | Outpatient (BNV) | payer OTHER, SELFPAY | PROVIDERS: Emergency Provider Emergency Medicine; Visit Provider Radiology Diagnostic Radiology | DX: R05.9 Cough, unspecified (principal) | CPT/HCPCS: 71046 ==

== ENCOUNTER 2025-03-20 09:19 | Outpatient (AMB) | payer OTHER, SELFPAY ==
[2025-03-20 09:21] VITALS: BP 142/80; PULSE 57; RESP 16; TEMP 36.8; O2SAT 97; BMI 31.6
--- NOTE | 2025-03-20 09:21 | MHC.PC.OV ---
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 Operator Required: No Accompanied by: Self / Same As Patient Allergies lisinopril Allergy (Mild, Verified 03/20/25 09:35) Closed throat sulfamethoxazole [From Bactrim] Allergy (Mild, Verified 03/20/25 09:35) Rash trimethoprim [From Bactrim] Allergy (Mild, Verified 03/20/25 09:35) Rash fish derived [fish] Allergy (Unknown, Verified 03/20/25 09:35) Rash, Redness morphine [MORPHINE] Allergy (Unknown, Verified 03/20/25 09:35) Nausea and Vomiting Sulfa (Sulfonamide Antibiotics) Allergy (Unknown, Verified 03/20/25 09:35) rash Fish Containing Products Adverse Reaction (Unknown, Verified 03/20/25 09:35) Worsens Gout symptoms Medication List - Last Reconciled 03/20/25 by BIANCA Rice bisacodyl (Dulcolax (bisacodyl)) 10 mg (2 x 5 mg) PO BEDTIME blood sugar diagnostic (FreeStyle Lite Strips) As directed once a day blood-glucose meter (FreeStyle Lite Meter kit) As directed glipizide 5 mg PO DAILY lancets (FreeStyle Lancets) As directed once a day multivitamin (Daily Multi-Vitamin tablet) 1 tab PO DAILY omeprazole 40 mg PO DAILY valsartan 80 mg PO DAILY Tobacco use date assessed: 03/20/25 Dental Screening Dental Screen Date: 03/20/25 Did you have a dental visit in the last 12 months?: Yes Did you have a dental problem in the last 6 months where you did not have access to dental care?: No Was dental information given to patient?: Patient has dentist HPI kam from [facility]/3 mo follow up HPI Details Patient is a 49 year old assigned male at with a history of DM, HTN, GERD, and BPH patient of Dr. Eckert [facility], Dr. Eckert retired Presenting with gastroesophageal reflux disease (GERD) and accompanying bloating. These symptoms have been a concern for two years, with bloating prominent after eating. He reported limited relief with omeprazole and attempted dietary changes to no avail. The patient acknowledges a history of gastrointestinal interventions without effective outcomes. Concurrently managing type 2 diabetes, he has seen benefits in weight loss and glucose control through dietary adjustments, though there remains work on managing hyperlipidemia and hypertension. Blood pressures at the clinic are elevated; however, the patient reports lower values with home monitoring. His heartburn is symptomatic of GERD, characterized by discomfort especially at night. The patient is actively engaged in weight loss and reports improvement in other health markers through lifestyle modifications. The patient is on glipizide that has been controlling DM, A1c is 7% today in office. Discussed with the patient about being on the medication for long-term could over work the pancreas and decrease it capability to produce insulin. The patient reports that he had a bad experience with metformin, will look into other option suitable for the patient condition. Explained to the patient about having better blood pressure control to protect his kidneys. [facility] Medical History Physical exam Delayed gastric emptying Back pain Neck pain Possible exposure to STD Tendinitis of left elbow Rash Fibroma of skin Obesity Screening for prostate cancer Adult general medical exam Diabetes mellitus with coincident hypertension Gout Sinusitis History of cardiac murmur Avascular necrosis of bone of hip Chronic GERD Sinus infection Diabetes mellitus Dysuria Diabetes COVID-19 Chronic GERD Cough Surgical History History of surgery on right wrist History of esophagogastroduodenoscopy (EGD) H/O colonoscopy H/O total hip arthroplasty H/O wrist surgery History of umbilical hernia repair History of wisdom tooth extraction History of tonsillectomy Family History Father No problems noted. Mother Colon cancer Diabetes Hypertension Family/Other Diabetes Hypertension Social History Housing: Apartment Alcohol intake: never Patient Tobacco Use Status: Never used Tobacco Tobacco use type: Cigarette e-Cigarette/Vaping Use: Never Used Second Hand Smoke Exposure: Yes service: No Current occupational status: disabled Current occupational exposures/hazards: No Cognitive needs: No Hearing needs: No Vision needs: No Questionnaire PHQ-9 Over the last 2 weeks, how often have you been bothered by any of the following problems? 1. Little interest or pleasure in doing things: not at all 2. Feeling down, depressed, or hopeless: not at all 3. Trouble falling or staying asleep, or sleeping too much: not at all 4. Feeling tired or having little energy: not at all 5. Poor appetite or overeating: not at all 6. Feeling bad about yourself - or that you are a failure or have let yourself or your family down: not at all 7. Trouble concentrating on things, such as reading the newspaper or watching television: not at all 8. Moving or speaking so slowly that other people could have noticed. Or the opposite - being so fidgety or restless that you have been moving around a lot more than usual: not at all 9. Thoughts that you would be better off or of hurting yourself in some way: not at all Total score: 0 Depression Screening Interpretation: Negative Depression Screening Done: Yes Source: Developed by Drs. Xavier Blackman, Jossy Puente, Gaurav Ruano and colleagues, with an educational dread from [employer]. Thrive Questionnaire Date Thrive assessed: 03/20/25 I am a: Patient What is your living situation today?: I have a steady place to live Within the past 12 months, did the food you bought not last and you didn't have the money to get more?: Often true Within the past 12 months, did you worry whether your food would run out before you got money to buy more?: Often true Do you have trouble paying for medicines?: No Do you have trouble getting transportation to medical appointments?: No Do you have trouble paying your heating and electricity bill?: No Do you have trouble taking care of your child, family member or friend?: No Do you have trouble with day-to-day activities such as bathing, preparing meals, shopping, managing finances, etc.?: No Are you currently unemployed and looking for a job?: No Are you interested in more education?: No Please select the resources that you would like help with: None Currently or been in a relationship where the following occur: No concerns reported THRIVE Score: 2 AUDIT C Alcohol Use Questionnaire (AUDIT-C) 1. How often do you have a drink containing alcohol?: Never Total Score: 0 Score Reviewed/Action Taken: No MICHAEL-7 AMB Questionnaire MICHAEL-7 Date MICHAEL - 7 assessed: 03/20/25 Feeling nervous, anxious, or on edge: 0 = Not at all Not being able to stop or control worryin = Not at all Worrying too much about different things: 0 = Not at all Trouble relaxin = Not at all Being so restless that it is hard to sit still: 0 = Not at all Becoming easily annoyed or irritable: 0 = Not at all Feeling afraid as if something awful might happen: 0 = Not at all Total MICHAEL-7 score (0-4 normal; 5-9 mild; 10-14 moderate; 15-21 severe): 0 Source: Developed by Drs. Xavier Blackman, Jossy Puente, Gaurav Ruano and colleagues, with an educational dread from [employer]. Review of Systems Const Denies headache(s) Eyes Denies loss of vision ENT Denies vertigo, Denies dizziness, Denies headache(s) and Denies sore throat Card Denies chest pain, Denies leg edema and Denies lightheadedness Resp Denies cough, Denies hemoptysis and Denies wheezing GI Denies abdominal pain, Denies melena, Reports bloating (continuous after eating), Denies constipation, Reports heartburn (on and off), Denies diarrhea and Denies vomiting Denies dysuria, Denies urinary frequency and Denies urinary urgency Neuro Denies Abnormal speech present, Denies vertigo, Denies dizziness, Denies headache(s) and Denies loss of vision Victorino/Lymph Denies easy bleeding and Denies easy bruising Aller/Immun Denies wheezing Physical exam (Primary Care) Vital Signs: Last Vital Signs Temp 98.2 F 03/20/25 09:21 Pulse 57 03/20/25 09:21 Resp 16 03/20/25 09:21 BP 142/80 H 03/20/25 09:21 Pulse Ox 97 03/20/25 09:21 Oxygen Delivery Method Room Air 03/20/25 09:21 BMI result Body Mass Index 31.6 Tobacco/Smoking Status: Tobacco use Status Tobacco use date assessed 03/20/25 03/20/25 09:23 Patient Tobacco Use Status Never used Tobacco 03/20/25 09:23 Tobacco use type Cigarette 03/20/25 09:23 e-Cigarette/Vaping Use Never Used 03/20/25 09:23 PHQ-9: PHQ-9 Score PHQ-9: Total score 0 03/20/25 09:34 Depression Screening Interpretation: Negative Thrive Assessment: Date of Thrive Assessment Date Thrive assessed 03/20/25 03/20/25 09:23 Currently or been in a relationship where the following occur: No concerns reported Const General: healthy appearing, no acute distress, alert and awake Nutritional Appearance: well nourished Orientation/consciousness: oriented to person, oriented to place and oriented to time HENMT Ears: TM's normal bilaterally General nose exam: Normal nasal mucous membranes and turbinates present Eyes Conjunctivae: conjunctivae normal Sclerae: sclerae normal Pupils: Equal, round and reactive pupils present Neck Neck: Yes no lymphadenopathy and Yes no JVD Thyroid: Thyroid normal Carotids: no bruits Resp Effort & Inspection: normal respiratory effort and not tachypneic Auscultation: no crackles, no rales, no rhonchi and no wheezes Cardio Rate: regular rate Rhythm: regular rhythm Heart sounds: no murmurs and normal S1 and S2 GI Palpation (GI): Soft to palpation, nontender, no hepatomegaly and no splenomegaly Auscultation: normal bowel sounds Neuro General: oriented to person, oriented to place and oriented to time Cranial nerves: Yes Equal, round and reactive pupils present Speech: No Abnormal speech present Gait exam (Neuro): Normal gait present Motor exam (neuro): no tremor noted Extrem Right upper extremity: full ROM Left upper extremity: full ROM Right lower extremity: full ROM; no edema Left lower extremity: full ROM; no edema Results AMB Hemoglobin A1c AMB Hemoglobin A1c 7.0 % Last Edit by Liss Harman CMA on 03/20/25 09:35 Results Reviewed Results Reviewed: Laboratory Tests 01/18/25 03/20/25 18:28 09:34 WBC 8.7 RBC 5.19 Hgb 14.9 Hct 43.5 MCV 83.8 MCH 28.7 RDW 13.3 Plt Count 279 MPV 10.5 Sodium 141 Potassium 4.1 Chloride 101 Carbon Dioxide 31 H Anion Gap 13 BUN 19 H Creatinine 1.03 Estim Creat Clear Calc 96.3 Estimated GFR > 60 Random Glucose 126 H Hgb A1c (Clinic) 7.0 H Calcium 9.7 Magnesium 1.8 Total Bilirubin 0.4 AST 21 ALT 23 Alkaline Phosphatase 68 C-Reactive Protein 0.46 Total Protein 8.1 H Albumin 4.4 Coding Level of Care Code Est Pt Level 4 (77024) Diagnoses Abdominal bloating R14.0 Hypertension, unspecified type I10 Hypertension type: unspecified Type 2 diabetes mellitus with other specified complication, without long-term current use of insulin E11.69 Diabetes mellitus type: type 2 Diabetes mellitus skilled nursing insulin use: without ferry terminal supervisor use Diabetes mellitus complication status: with other specified complication Chronic GERD K21.9 Obesity (BMI 30.0-34.9) E66.811 Time Spent (min) 39 Assessment & Plan Assessment & Plan (1) Abdominal bloating: Code(s): R14.0 - Abdominal distension (gaseous) Category: Medical (2) Hypertension: Code(s): I10 - Essential (primary) hypertension Category: Medical Qualifiers: Hypertension type: unspecified Qualified Code(s): I10 - Essential (primary) hypertension (3) Diabetes mellitus: Code(s): E11.9 - Type 2 diabetes mellitus without complications Category: Medical Qualifiers: Diabetes mellitus type: type 2 Diabetes mellitus ferry terminal supervisor insulin use: without skilled nursing use Diabetes mellitus complication status: with other specified complication Qualified Code(s): E11.69 - Type 2 diabetes mellitus with other specified complication (4) Chronic GERD: Code(s): K21.9 - Gastro-esophageal reflux disease without esophagitis Category: Medical (5) Obesity (BMI 30.0-34.9): Code(s): E66.811 - Obesity, class 1 Category: Medical Plan The patient will initiate simethicone to manage gas and will continue with omeprazole for GERD symptoms. An increase in valsartan dosage is advised to better manage hypertension, with daily home monitoring of blood pressure to guide therapy adjustments. A referral to a grocery supervisor is advised to support dietary improvements that may facilitate better control of diabetes and hyperlipidemia. His focus on weight loss is encouraged, given the significant potential benefits to his GERD, diabetes, and cardiovascular risk profile. Further consultations will refine the diabetes medication approach to avoid long-term pancreatic stress. Patient was informed and verbally consented to the use of an ambient scribe for clinic note documentation during this visit. Orders: Orders AMB Hemoglobin A1c Today E11.9 - Type 2 diabetes mellitus without complications Complete Blood Count Auto Diff 3 Days E11.9 - Type 2 diabetes mellitus without complications, I10 - Essential (primary) hypertension, K21.9 - Gastro-esophageal reflux disease without esophagitis, K30 - Functional dyspepsia, N40.0 - Benign prostatic hyperplasia without lower urinary tract symptoms, R68.81 - Early satiety Comprehensive [place]. Panel Fast 3 Days E11.9 - Type 2 diabetes mellitus without complications, I10 - Essential (primary) hypertension, K21.9 - Gastro-esophageal reflux disease without esophagitis, K30 - Functional dyspepsia, N40.0 - Benign prostatic hyperplasia without lower urinary tract symptoms, R68.81 - Early satiety Hemoglobin A1c 3 Days E11.9 - Type 2 diabetes mellitus without complications, I10 - Essential (primary) hypertension, K21.9 - Gastro-esophageal reflux disease without esophagitis, K30 - Functional dyspepsia, N40.0 - Benign prostatic hyperplasia without lower urinary tract symptoms, R68.81 - Early satiety UA CC w/rflx Micro + Cult 3 Days E11.9 - Type 2 diabetes mellitus without complications, I10 - Essential (primary) hypertension, K21.9 - Gastro-esophageal reflux disease without esophagitis, K30 - Functional dyspepsia, N40.0 - Benign prostatic hyperplasia without lower urinary tract symptoms, R68.81 - Early satiety Vitamin D 25-OH Total 3 Days E11.9 - Type 2 diabetes mellitus without complications, I10 - Essential (primary) hypertension, K21.9 - Gastro-esophageal reflux disease without esophagitis, K30 - Functional dyspepsia, N40.0 - Benign prostatic hyperplasia without lower urinary tract symptoms, R68.81 - Early satiety Glucose Fasting 3 Days E11.9 - Type 2 diabetes mellitus without complications, I10 - Essential (primary) hypertension, K21.9 - Gastro-esophageal reflux disease without esophagitis, K30 - Functional dyspepsia, N40.0 - Benign prostatic hyperplasia without lower urinary tract symptoms, R68.81 - Early satiety TSH reflex Free T4 3 Days E11.9 - Type 2 diabetes mellitus without complications, I10 - Essential (primary) hypertension, K21.9 - Gastro-esophageal reflux disease without esophagitis, K30 - Functional dyspepsia, N40.0 - Benign prostatic hyperplasia without lower urinary tract symptoms, R68.81 - Early satiety Lipid Panel 3 Days E11.9 - Type 2 diabetes mellitus without complications, I10 - Essential (primary) hypertension, K21.9 - Gastro-esophageal reflux disease without esophagitis, K30 - Functional dyspepsia, N40.0 - Benign prostatic hyperplasia without lower urinary tract symptoms, R68.81 - Early satiety Referrals Nutrition/Dietitian Referral E11.69 - Type 2 diabetes mellitus with other specified complication, E66.811 - Obesity, class 1 Medications: New simethicone (Gas Relief (simethicone)) 80 mg PO TID-QID 30 days PRN 120 tabs 3RF abdominal distention simethicone (Gas Relief (simethicone)) chew tabs before swallowing give after meals or at bedtime 80 mg PO TID-QID 30 days PRN 120 tabs 3RF abdominal distention valsartan 160 mg PO DAILY 30 tabs 2RF On Hold valsartan Hold Comment: Doctor's Order 80 mg PO DAILY 90 tabs 1RF I10 - Essential (primary) hypertension Patient Instructions: - Take simethicone as directed for bloating and gas. - Continue omeprazole for heartburn symptoms. - Keep track of your blood pressure at home and note any changes. - Visit a grocery supervisor for dietary advice. - Focus on losing more weight through diet and exercise. - Maintain reduced salt intake to help control blood pressure. - Contact the doctor if you notice any new symptoms or unexpected changes in your health.
--- OUTSIDE RECORDS SUMMARY | 2025-03-20 10:00 | XMS_ITS | Data Portability ---
Author Organization [employer] [facility] Address [address] [place] [phone] Care Team Providers Care Service Desk Analyst Name Role Phone HIM CCA OTHER Assessment No assessment recorded. Plan of Treatment Reminders Order Date Submit Date Provider Last Modified By Organization Details Last Modified Time Details Appointments None recorded. Lab rapid flu (A+B) 2024 025 [facility], [address] [place] [address], [id number] 5 21:03:13 rapid SARS CoV 2 Ag, QL IA, respiratory specimen [address], [phone] 21:03:33 Referral None recorded. Procedures None recorded. Surgeries None recorded. Imaging None recorded. Medication Orders amoxicillin 875 mg-potassiu m clavulanate 125 mg tablet 2024 [facility] #[id number], [address] [place], [address], 5 16:16:41 Flonase Allergy Relief 50 mcg/actuati on nasal spray,suspe nsion 2024 025 [facility][id number], [address] [place], [address], 5 16:16:41 Lactobacill us acidoph-L.b ulgaricus 1 million cell chewable tablet 2024 025 [facility] #[id number], [address] [place], [address], 5 16:16:40 Patient TargetsNo targets recorded. Patient InstructionsNo instructions recorded. Reason for Referral None Reported. Results Created Date Observation Date Name Description Value Unit Range Abnormal Flag Note LastModifiedBy Organization Detail LastModifiedTime Result Notes None recorded. Medical Equipment None Reported. Allergies Allergen ID Allergen Name Allergen Category Reaction Reaction Severity Criticality Documentation Date Start Date Code Code System Note Provider Name and Address Organization Details Recorded Time 36023 Bactrim medicatio n Not available Not available Not available 03/02/2025 16667 9 RxNorm Not Available [facility] - production 5 12:22:12 25566 morphine medicatio n Not available Not available Not available 03/02/2025 7052 RxNorm Not Available [facility] - production 5 12:22:12 Medications Name Sig Start Date Stop Date Status Note LastModified by Organization Details LastModified Time doxycycline hyclate 100 mg capsule TAKE 1 CAPSULE ORALLY 2 TIMES A DAY FOR 10 DAYS active Not Available Not Available Not Available sucralfate 1 gram tablet TAKE 1 TABLET BY MOUTH EVERY DAY BEFORE MEALS active Not Available Not Available No t Available FreeStyle Lancets 28 gauge USE DIRECTED ONCE A DAY active Not Available Not Available N ot Available famotidine 40 mg tablet TAKE 1 TABLET ORALLY AT BEDTIME active Not Available Not Available No t Available prednisone 20 mg tablet TAKE 2 TABLETS BY MOUTH EVERY DAY FOR 5 DAYS active Not Available Not Available No t Available valsartan 80 mg tablet TAKE 1 TABLET BY MOUTH EVERY DAY active Not Available Not Available No t Available omeprazole 40 mg capsule,radha yed release TAKE 1 CAPSULE BY MOUTH EVERY DAY active Not Available Not Available No t Available leflunomide 20 mg tablet TAKE 1 TABLET BY MOUTH EVERY DAY active Not Available Not Available No t Available triamcinolon e acetonide 0.1 % topical cream APPLY TO AFFECTED AREA TWICE A DAY active Not Available Not Available No t Available metocloprami de 5 mg tablet TAKE 1 TABLET BY MOUTH 4 TIMES A DAY WITH MEAL/BED active Not Available Not Available No t Available methocarbamo l 750 mg tablet TAKE 1 TABLET BY MOUTH EVERY 8 HOURS NEEDED FOR MUSCLE SPASM active Not Available Not Available No t Available benzonatate 100 mg capsule TAKE 1 CAPSULE BY MOUTH TWICE A DAY NEEDED FOR COUGH FOR 7 DAYS active Not Available Not Available No t Available cephalexin 500 mg capsule TAKE 1 CAPSULE BY MOUTH FOUR TIMES A DAY FOR 7 DAYS active Not Available Not Available N ot Available pantoprazole 40 mg tablet,delay ed release TAKE 1 TABLET BY MOUTH DAILY active Not Available Not Available Not Available omeprazole 20 mg capsule,radha yed release TAKE 1 CAPSULE BY MOUTH DAILY active Not Available Not Available Not Available amoxicillin 250 mg capsule TAKE 4 CAPS BY MOUTH EVERY DAY active Not Available Not Available No t Available ibuprofen 600 mg tablet TAKE 1 TABLET BY MOUTH THREE TIMES A DAY NEEDED FOR PAIN active Not Available Not Available No t Available methylpredni solone 4 mg tablets in a dose pack TAKE 6 TABLETS ON DAY 1 DIRECTED ON PACKAGE AND DECREASE BY 1 TAB EACH DAY FOR A TOTAL OF 6 DAYS active Not Available Not Available No t Available ketoconazole 2 % topical cream APPLY TO FEET EXTERNALLY TWICE A DAY 21 DAYS active Not Available Not Available No t Available fluticasone propionate 50 mcg/actuatio n nasal spray,suspen isabella SPRAY 1 SPRAY BY INTRANASAL ROUTE EVERY DAY FOR 10 DAYS active Not Available Not Available No t Available doxycycline hyclate 100 mg tablet TAKE 1 TABLET BY MOUTH TWICE A DAY FOR 7 DAYS active Not Available Not Available No t Available glipizide 5 mg tablet TAKE 1 TABLET BY MOUTH EVERY DAY active Not Available Not Available No t Available naproxen 500 mg tablet TAKE 1 TABLET BY MOUTH TWICE A DAY NEEDED FOR PAIN active Not Available Not Available No t Available metocloprami de 10 mg tablet TAKE 1 TABLET ORALLY 4 TIMES A DAY BEFORE MEAL/BED active Not Available Not Available No t Available amoxicillin 875 mg-potassium clavulanate 125 mg tablet TAKE 1 TABLET BY MOUTH TWICE A DAY FOR 10 DAYS active Not Available Not Available No t Available Laxative (bisacodyl) 5 mg tablet,delay ed release TAKE 2 TABLETS BY MOUTH AT BEDTIME active Not Available Not Available No t Available Enbrel SureClick 50 mg/mL (1 mL) subcutaneous pen injector active Not Available Not Available Not Available FreeStyle Lite Strips USE DIRECTED ONCE A DAY active Not Available Not Available N ot Available Lactobacillu s acidoph-L.bu lgaricus 1 million cell chewable tablet Take 1 tablet twice a day by oral route for 20 days. 2024 active Not Available Not Available Not Avai lable Floranex 1 million cell tablet TAKE 1 TABLET BY MOUTH TWICE A DAY FOR 20 DAYS active Not Available Not Available No t Available Linzess 290 mcg capsule PLEASE SEE ATTACHED FOR DETAILED DIRECTIONS active Not Available Not Available N ot Available OneTouch Ultra2 Meter USE TO TEST ONCE DAILY active Not Available Not Available N ot Available OneTouch UltraSoft 2 Lancet 30 gauge USE TO TEST ONCE DAILY active Not Available Not Available N ot Available Vitals Date Recorded Oxygen saturation Oxygen saturation in Arterial blood by Pulse oximetry Heart rate Body temperature Respiratory rate Systolic blood pressure Diastolic blood pressure Provider Name and Address Organization Details Last Updated DateTime 5 96 % 96 % 60 /min 98.8 [degF] 18 /min 156 mm[Hg] 88 mm[Hg] Not Available [facility] - production 5 16:09:34 Social History None recorded. Functional Status None recorded. Mental Status None recorded. Family History Nothing Reported. Medical History No medical history recorded. Gynecological HistoryNo gynecological history recorded. Obstetrics History GPAL:G 0 P 0 0 0 0 Past Encounters Encounter ID Performer Location Encounter Start Date Encounter Closed Date Diagnosis/Indication Diagnosis SNOMED-CT Code Diagnosis ICD10 Code Diagnosis Note [id number] RENEA ELLIS MD Main - [address] [phone] 03/02/2025 16:09:33 03/04/2025 14:41:33 Recurrent acute frontal sinusitis [id number] J01.11 Evaluation in the field was performed by my liquefied petroleum gasfitter colleague, as noted above, I provided real-time direction and supervisio n for this visit. The evaluation revealed 49-year-ol d male with a history of Gastroesop hageal Reflux Disease (GERD), Type 2 Diabetes Mellitus, Hypertensi on, and frequent sinus infections . The patient reports experienci ng approximat denny 20 sinus infections per year and is followed by an ENT specialist . His most recent sinus infection occurred three weeks ago, for which he presented to [facility] ER and was prescribed doxycyclin e, which he completed on 02/18.The patient reports headache, fatigue, pressure under the eyes, sinus congestion , yellow nasal discharge, and discharge from both eyes upon waking in the morning. He denies fever, chills, chest pain, or shortness of breath. Vitals: Blood Pressure: 156/88 , Heart Rate: 60 , Respirator y Rate: 18SpO2: 96%, Temperatur e: 98.8? ? ?FPhysical Examinatio n:The patient is alert and oriented, in no apparent distress.N o facial swelling or erythema noted.Tend erness to palpation over the frontal sinuses; the patient also reports pain behind the eyes.Lungs clear to auscultati on bilaterall y.No lower extremity edema.COVI D-19 and influenza tests are negative.A mattyergies: Reviewed Impression :Recurrent sinusitis, likely chronic in nature, given the patient's frequent sinus infections . Plan:-Pres cribed Augmentin 875 mg BID for 10 days. Potential side effects were discussed with the patient, including gastrointe stinal discomfort . The patient was encouraged to consume yogurt to help mitigate potential GI side effects. A prescripti on for lactobacil will was sent to his pharmacy.- Prescripti on for Flonase was sent to his pharmacy.- The patient was encouraged to stay well-debbie saenz.-Advis ed to follow up with ENT as planned-Re d flags discussed with the patient including : severe or worsening headache,a high-grade fever (> 102? ? ?F) that persists despite antibiotic therapy, blurred vision, double vision, or pain with eye movement, swelling around the eyes or face, confusion, lethargy, or other signs of altered mental status, severe facial pain, dental pain, neck stiffness. Primary care, consider__ _ Dispositio n: We discussed the diagnostic uncertaint y of home visits and the risk associated with this. In this case, the patient and I felt this to be an acceptable and reasonable amount of risk given the benefit of avoiding an ED visit. We discussed the need to seek care urgently/e mergently in the setting of any new or worsening serious symptoms, particular ly severe or worsening headache,a high-grade fever (> 102? ? ?F) that persists despite antibiotic therapy, blurred vision, double vision, or pain with eye movement, swelling around the eyes or face, confusion, lethargy, or other signs of altered mental status, severe facial pain, dental pain, neck stiffness. Health Concerns Section Related Observation LastModified by Organization Detai ls LastModified Time None Recorded Concern Status LastModified by Organization Details LastModified Time None Recorded Advance Directives Directive None Recorded Payers Insurance Date Sequence Insurance Name Policy Number Policy Hernandez Covered Member ID Hernandez Member ID Guarantor Name 03/02/2025 1 [facility] - DOS ON OR AFTER 2023 - DUAL ELIGIBLE - DETENTION OPTIONS AND ONE CARE (MEDICARE REPLACEMENT/ADV ANTAGE - HMO) Angel Gary [id number] Angel Gary Notes Date Note Type Note Provider Name and Address Organization Details Recorded Time 03/02/2025 text/html [facility] Nurse Triage Notes (Josué Woods): Reason For Request: Pt reporting a suspected sinus infection>went to [facility] 3 weeks ago>still experiencing undereye pain>under nose pressure>headache>fati samia Denies: Sudden onset of dental pain, unable to manage own secretions Nosebleed lasting longer than one hour; unable to stop bleeding Throat swelling/difficult swallowing Chief Complaints: Headache, Common Cold PMH: Gastroesophageal Reflux Disease (GERD), Diabetes Mellitus Type 2, Hypertension PMH Reviewed at 03/02/2025 - Allergies Reviewed at 03/02/2025 - Comments: Additional PMH: Chronic Sinusitis Motor Polarizer verified the patient's name//address and phone number. Pt calling reporting headache, fatigue, pressure under eyes and sinus congestion. Pt reports he went to [facility] ER approx 3 weeks ago and was started on antibiotics, but pt reports no improvement in symptoms with antibiotics. Pt reports hx of frequent sinus infections. Pt also reporting photophobia with headaches and dizziness, pt denies vision changes. Education provided on the response time and the patient was advised to monitor reported s/s and seek emergency treatment if needed -Paresh Woods RN Roller Coaster Designer Organization Information for [facility] [employer] Name: [employer]? Address: [address] [place] [address], Gas Plumbing Inspector: Tab Jimenez MD CLIA No.: [id number] Roller Coaster Designer POC Test Results from [facility] Rapid COVID antigen (16:09:00) COVID: - Attachments uploaded as part of this test result can be found under Documents section. Rapid influenza antigen (16:09:01) Flu: - Attachments uploaded as part of this test result can be found under Documents section. ...................... ...................... ...................... ...................... ...................... ...................... ......... Roller Coaster Designer Note From [facility]: Encountered patient conscious alert and ambulatory. Patient reports he suffers from chronic sinus infections and was seen at [facility] on 02/11/25. Patient states he completed a course of doxycycline prescribed to him by the emergency room physician on 02/18/25. Patient expresses he experienced no relief with the medication but denies recent fevers, nausea or vomiting. Covid and flu swabs performed, both resulted negative; [facility] notified. Skin warm, dry and of appropriate color for ethnicity. Head and neck free of trauma and edema. JVD. Breath sounds present clear and equal bilaterally. Abdomen is soft, nontender and non-distended. Extremities, free of trauma and edema. [facility] contacted: states they will write prescription prescriptions for antibiotics and nasal spray at patient? s request to be sent to patient? s pharmacy of choice. [facility] additionally encourages patient to follow up with an teacher learning disabled as soon as possible. Patient verbalizes understanding of the plan and is comfortable with remaining at home at this time. [facility] Lab Orders: rapid flu (A+B): Performed rapid SARS CoV 2 Ag, QL IA, respiratory specimen: Performed ...................... ...................... ...................... ...................... ...................... ...................... ......... [facility] Consulted: Renea Ellis ...................... ...................... ...................... ...................... ...................... ...................... ......... Disposition: Aleksandr ELLIS MD [address] [facility],[address], [place], [phone], [employer], [employer] 03/02/2025 16:31:32 OBGyn Episode No OBEpisode recorded.
== END 2025-03-20 10:15 | disposition home or self-care (01) ==
LOC: HO.HMCH 09:20
DX: E11.69 Type 2 diabetes mellitus with other specified complication (principal); E11.9 Type 2 diabetes mellitus without complications; Z68.31 Body mass index [BMI] 31.0-31.9, adult; E66.811 Obesity, class 1; R14.0 Abdominal distension (gaseous); I10 Essential (primary) hypertension; K21.9 Gastro-esophageal reflux disease without esophagitis

== ENCOUNTER → 2025-03-20 09:19 | Outpatient (BNVA) | payer OTHER, SELFPAY | PROVIDERS: PCP Internal Medicine | DX: I10 Essential (primary) hypertension (principal); K21.9 Gastro-esophageal reflux disease without esophagitis; N40.0 Benign prostatic hyperplasia without lower urinary tract symptoms; E78.5 Hyperlipidemia, unspecified; R14.0 Abdominal distension (gaseous); E11.69 Type 2 diabetes mellitus with other specified complication; E66.811 Obesity, class 1; R68.81 Early satiety; Z68.31 Body mass index [BMI] 31.0-31.9, adult | CPT/HCPCS: 83036; 96127; 99212 ==

== ENCOUNTER 2025-03-22 08:47 | Outpatient (AMB) | payer OTHER, SELFPAY ==
--- NOTE | 2025-03-22 08:47 | A.OFFVIS_ITS ---
Vital Signs 03/22/25 08:54 Height 5 ft 10 in Weight 220 lb BMI 31.6 BP 160/78 H Blood Pressure Location Rt brachial Position Sitting Pulse 58 Pulse Source Pulse Oximeter Pulse Oximetry (%) 97 Oxygen Delivery Method Room Air Intake Visit Reasons: confirmed on 03/18 GERD Intake Note: ESTABLISHED PATIENT for mgmt of GERD CC; CO persistence of sx since last visit. Pt still experiencing reflux and abd distention despite following care plan very closely. Pt denies any new sx or concerns but is feeling very discouraged due to persistence and feeling very physically uncomfortable due to sx. Mailing Machine Operator Required: No Accompanied by: Self / Same As Patient Allergies lisinopril Allergy (Mild, Verified 03/22/25 08:56) Closed throat sulfamethoxazole [From Bactrim] Allergy (Mild, Verified 03/22/25 08:56) Rash trimethoprim [From Bactrim] Allergy (Mild, Verified 03/22/25 08:56) Rash fish derived [fish] Allergy (Unknown, Verified 03/22/25 08:56) Rash, Redness morphine [MORPHINE] Allergy (Unknown, Verified 03/22/25 08:56) Nausea and Vomiting Sulfa (Sulfonamide Antibiotics) Allergy (Unknown, Verified 03/22/25 08:56) rash Fish Containing Products Adverse Reaction (Unknown, Verified 03/22/25 08:56) Worsens Gout symptoms HPI HPI confirmed on 03/18 GERD: Details: LAST VISIT Abdominal bloating Chronic GERD Constipation Plan Continue omeprazole every morning half an hour before breakfast. Avoid dietary triggers and late night snacking. Staying upright for minimum 3 hours after meals discussed patient. Patient will take Dulcolax tablets every evening to help him move his bowels. Severe abdominal bloating. Discussed with patient low FODMAP diet. List of food recommended as well as list of food to avoid given to patient. Patient will follow-up in 3 months, sooner on as needed basis. He is agreeable to this plan and verbalizes understanding of instructions. He was given the opportunity to ask questions and all questions answered. ? Thank you for allowing me to participate in his care Medications New omeprazole 40 mg PO DAILY 30 caps 3RF K21.9 bisacodyl (Dulcolax (bisacodyl)) 10 mg (2 x 5 mg) PO BEDTIME 60 tabs 4RF Discontinued omeprazole magnesium (Prilosec OTC) Discontinued Reason: Doctor's Order 40 mg (2 x 20 mg) PO DAILY 30 days 60 tabs 3RF K21.9 TODAY'S VISIT Patient is here today for follow-up. Patient reports that omeprazole has been working for him for reflux. Patient's only concern is bloating no matter what he eats. Patient reports that he is moving his bowels well on his own, no longer needs to use Dulcolax. Patient got bhrg-flg-ohvxkip probiotics and feels like this is helping. Patient however is very concerned about bloating. This morning he ate wheat bread with ham and reports bloating almost immediately after he ate. Patient denies any nausea or vomiting. Denies dyspepsia, dysphagia or odynophagia. Denies melena, hematochezia, unintentional weight loss or ribbon like stools. Patient reports that the bloating it is so severe that prevents him from doing activities. Would like to go to the gym, however he feels uncomfortable due to bloating. 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 [facility] Medical History (Updated 03/22/25 @ 10:03 by Na Contreras [facility]-) Physical exam Back pain Neck pain Possible exposure to STD Tendinitis of left elbow Rash Fibroma of skin Obesity Screening for prostate cancer Adult general medical exam Diabetes mellitus with coincident hypertension Gout Sinusitis History of cardiac murmur Avascular necrosis of bone of hip Chronic GERD Sinus infection Diabetes mellitus Dysuria Diabetes COVID-19 Chronic GERD Cough Surgical History History of surgery on right wrist History of esophagogastroduodenoscopy (EGD) H/O colonoscopy H/O total hip arthroplasty H/O wrist surgery History of umbilical hernia repair History of wisdom tooth extraction History of tonsillectomy Family History Father No problems noted. Mother Colon cancer Diabetes Hypertension Family/Other Diabetes Hypertension Social History Housing: Apartment Alcohol intake: never Patient Tobacco Use Status: Never used Tobacco Tobacco use type: Cigarette e-Cigarette/Vaping Use: Never Used Second Hand Smoke Exposure: Yes service: No Current occupational status: disabled Current occupational exposures/hazards: No Cognitive needs: No Hearing needs: No Vision needs: No Review of Systems Const Denies weight gain and Denies weight loss ENT Reports no additional complaints, Denies dysphagia and Denies odynophagia Card Reports no additional complaints Resp Reports no additional complaints GI Denies abdominal pain, Denies belching, Denies melena, Reports bloating, Denies change in bowel habits, Denies constipation, Denies dysphagia, Denies excessive flatus, Denies dyspepsia, Denies heartburn, Denies diarrhea, Denies loose stools, Denies nausea, Denies odynophagia and Denies vomiting Reports no additional complaints Musc Reports no additional complaints Neuro Reports no additional complaints Psych Reports no additional complaints Endo Reports no additional complaints Physical Exam Vital Signs: Last Vital Signs Pulse 58 03/22/25 08:54 BP 160/78 H 03/22/25 08:54 Pulse Ox 97 03/22/25 08:54 Oxygen Delivery Method Room Air 03/22/25 08:54 BMI result Body Mass Index 31.6 Const General: healthy appearing, no acute distress and well developed Nutritional Appearance: well nourished and obese Orientation/consciousness: patient oriented x3 Resp Effort & Inspection: normal respiratory effort, able to speak in complete sentences, no tracheal deviation and symmetric chest movement Auscultation: clear to auscultation bilaterally Cardio Rate: regular rate GI Inspection: Yes normal to inspection, No distended and Yes obesity Palpation (GI): Soft to palpation, not firm, nontender and No hepatosplenomegaly present Auscultation: normal bowel sounds General: Yes no CVA tenderness Back/Spine/Pelvis Back: no CVA tenderness Skin General skin exam: elasticity normal, turgor normal and dry skin Neuro General: patient oriented x3 Psych Appearance: grossly normal Mental Status: mental status grossly normal Assessment & Plan Assessment & Plan (1) Abdominal bloating: Code(s): R14.0 - Abdominal distension (gaseous) Category: Medical (2) Chronic GERD: Code(s): K21.9 - Gastro-esophageal reflux disease without esophagitis Category: Medical (3) Constipation: Code(s): K59.00 - Constipation, unspecified Qualifiers: Constipation type: slow transit constipation Qualified Code(s): K59.01 - Slow transit constipation Plan Patient will continue taking omeprazole daily. Avoid dietary triggers and late night snacking. Staying upright for minimum 3 hours after meals discussed with patient. Patient can continue taking probiotics. We will try to send him script for Creon and he can try to take the to see if his bloating will go away. In march use simethicone as needed. Discussed with patient low FODMAP diet. List of food recommended as well as list of food to avoid given to patient. Richard hernández will follow-up in 4 months, sooner on as needed basis. He is agreeable to this plan and verbalizes understanding of instructions. He was given the opportunity to ask questions and all questions answered. Thank you for allowing me to participate in his care Medications: New simethicone 125 mg PO BID-QID PRN 120 caps 3RF abdominal distention K21.9 - Gastro-esophageal reflux disease without esophagitis [id number]-qnnxssm 36,000-114,000- 180,000 unit (Creon) administer with meals and/or snacks 1 cap PO QID 120 caps 3RF R14.0 - Abdominal distension (gaseous) Discontinued simethicone (Gas Relief (simethicone)) chew tabs before swallowing give after meals or at bedtime Discontinued Reason: Doctor's Order 80 mg PO TID-QID 30 days PRN 120 tabs 3RF abdominal distention Coding Level of Care Code Est Pt Level 3 (11558) Diagnoses Abdominal bloating R14.0 Chronic GERD K21.9 Slow transit constipation K59.01 Constipation type: slow transit constipation Time Spent (min) 30 Comment 20 minutes spent with patient and additional 10 minutes spent reviewing his records
[2025-03-22 08:54] VITALS: BP 160/78; PULSE 58; O2SAT 97; BMI 31.6
--- OUTSIDE RECORDS SUMMARY | 2025-03-22 08:57 | XMS_ITS | Data Portability ---
Author Organization [facility] [place] - [facility] Address [address] [place] [id number] Care Team Providers Care City Superintendent Name Role Phone HIM CCA OTHER Assessment No assessment recorded. Plan of Treatment Reminders Order Date Submit Date Provider Last Modified By Organization Details Last Modified Time Details Appointments None recorded. Lab rapid flu (A+B) 2024 025 [facility], [address] [place] [address], [id number] 5 21:03:13 rapid SARS CoV 2 Ag, QL IA, respiratory specimen [address], [phone] 21:03:33 Referral None recorded. Procedures None recorded. Surgeries None recorded. Imaging None recorded. Medication Orders amoxicillin 875 mg-potassiu m clavulanate [address] [facility][id number], [address] [place], [address], 5 16:16:41 Flonase Allergy Relief 50 mcg/actuati on nasal spray,suspe nsion [address] [id number], [address] [place], [address], 5 16:16:41 Lactobacill us acidoph-L.b ulgaricus 1 million cell chewable tablet [address] [facility][id number], [address] [place], [address], 5 16:16:40 Patient TargetsNo targets recorded. Patient [...] Name and Address Organization Details Recorded Time 64697 Bactrim medicatio n Not available Not available Not available 03/02/2025 [id number] RxNorm Not Available [facility] - production 5 12:22:12 27205 morphine medicatio n Not available Not available [...] SNOMED-CT Code Diagnosis ICD10 Code Diagnosis Note [id number] RENEA ELLIS MD Main - [address] [phone] 03/02/2025 16:09:33 03/04/2025 14:41:33 Recurrent acute frontal sinusitis [id number] J01.11 Evaluation in the field was performed by my manager utility colleague, as noted above, I provided real-time [...] weeks ago, for which he presented to [facility] ER and was prescribed doxycyclin e, which [...] Hernandez Member ID Guarantor Name 03/02/2025 1 [facility] - DOS ON OR AFTER 2023 - DUAL ELIGIBLE - CORRECTION OPTIONS AND ONE CARE (MEDICARE REPLACEMENT/ADV ANTAGE - HMO) Angel Gary [id number] Angel Gary Notes Date Note Type Note Provider Name and Address Organization Details Recorded Time 03/02/2025 text/html CRC Nurse Triage Notes (Josué Woods): Reason For Request: Pt reporting a suspected sinus infection>went to [facility] 3 weeks ago>still experiencing undereye pain>under nose pressure>headache>fati samia Denies: Sudden onset of dental pain, unable to manage own secretions Nosebleed lasting longer than one hour; unable to stop bleeding Throat swelling/difficult swallowing Chief Complaints: Headache, Common Cold PMH: Gastroesophageal Reflux Disease (GERD), Diabetes Mellitus Type 2, Hypertension PMH Reviewed at 03/02/2025 - Allergies Reviewed at 03/02/2025 - Comments: Additional PMH: Chronic Sinusitis 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 Pt calling reporting headache, fatigue, pressure under eyes and sinus congestion. Pt reports he went to [facility] ER approx 3 weeks ago and was started on antibiotics, but pt reports no improvement in symptoms with antibiotics. Pt reports hx of frequent sinus infections. Pt also reporting photophobia with headaches and dizziness, pt denies vision changes. Education provided on the response time and the patient was advised to monitor reported s/s and seek emergency treatment if needed -Paresh Woods RN Inspector Mechanical Organization Information for [facility] [employer] Legal Name: [employer]? Address: [address] [place] [address], Whipped Topping Mixer: Tab Jimenez MD CLIA No.: [id number] Inspector Mechanical POC Test Results from [facility] Rapid COVID antigen (16:09:00) COVID: - Attachments uploaded as part of this test result can be found under Documents section. Rapid influenza antigen (16:09:01) Flu: - Attachments uploaded as part of this test result can be found under Documents section. ...................... ...................... ...................... ...................... ...................... ...................... ......... Inspector Mechanical Note From [facility]: Encountered patient conscious alert and ambulatory. Patient reports he suffers from chronic sinus infections and was seen at [facility] on 02/11/25. Patient states he completed a course of doxycycline prescribed to him by the emergency room physician on 02/18/25. Patient expresses he experienced no relief with the medication but denies recent fevers, nausea or vomiting. Covid and flu swabs performed, both resulted negative; [facility] [place]. Skin warm, dry and of appropriate color for ethnicity. Head and neck free of trauma and edema. JVD. Breath sounds present clear and equal bilaterally. Abdomen is soft, nontender and non-distended. Extremities, free of trauma and edema. [facility] contacted: states they will write prescription prescriptions for antibiotics and nasal spray at patient? s request to be sent to patient? s pharmacy of choice. [facility] additionally encourages patient to follow up with an subject scientific research as soon as possible. Patient verbalizes understanding of the plan and is comfortable with remaining at home at this time. [facility] Lab Orders: rapid flu (A+B): Performed rapid SARS CoV 2 Ag, QL IA, respiratory specimen: Performed ...................... ...................... ...................... ...................... ...................... ...................... ......... [facility] Consulted: Renea Ellis ...................... ...................... ...................... ...................... ...................... ...................... ......... Disposition: Aleksandr ELLIS MD [address] [facility],[address], [place], [address], [employer], [employer] 03/02/2025 16:31:32 OBGyn Episode No OBEpisode recorded.
== END 2025-03-22 09:11 | disposition home or self-care (01) ==
PROVIDERS: PCP Internal Medicine; Visit Provider Nurse Practitioner Family
DX: R14.0 Abdominal distension (gaseous) (principal); K21.9 Gastro-esophageal reflux disease without esophagitis; K59.01 Slow transit constipation
CPT/HCPCS: 99213

== ENCOUNTER → 2025-03-22 08:47 | Outpatient (BNVA) | payer OTHER, SELFPAY | PROVIDERS: PCP Internal Medicine; Visit Provider Nurse Practitioner Family | DX: K21.9 Gastro-esophageal reflux disease without esophagitis (principal); R14.0 Abdominal distension (gaseous); K59.01 Slow transit constipation | CPT/HCPCS: 99212 ==

== ENCOUNTER 2025-06-19 06:52 | Outpatient (REF) | payer OTHER, SELFPAY ==
--- OUTSIDE RECORDS SUMMARY | 2025-06-19 06:55 | XMS_ITS | Continuity of Care Document ---
Author Name [facility], Medical Address [address] [place] [id number] Organization Unknown Address [address] [place] [id number] Medications No known medications Problems No known problems
[2025-06-19 07:05] LABS: MANUAL DIFF FLAG NO
[2025-06-19 07:37] LABS: Hematocrit 41.8 % (42.0-52.0); Hemoglobin 14.2 g/dl (14.0-18.0); Imm Gran Abs Auto 0.02 X10*3/uL (0.00-0.03); Imm Gran Pct Auto 0.3 % (0.0-0.4); Lymphocytes Absolute Auto 2.7 X10*3/uL (1.2-4.9); Mean Corpuscular HGB Conc 34.0 g/dl (31.0-36.0); Mean Corpuscular Hemoglobin 28.1 pg (27.0-33.0); Mean Corpuscular Volume 82.6 fL (80.0-98.0); NRBC Abs Auto 0.000 X10*3/uL (0.0-0.012); NRBC Pct Auto 0.0 /100WBC (0.0-0.2); Platelet Count 234 X10*3/uL (160-400); Red Blood Count 5.06 X10*6/uL (4.60-5.80); White Blood Count 7.1 X10*3/uL (4.8-10.8)
[2025-06-19 07:47] LABS: Hemoglobin A1C 178.6897 umol/L; Total Hemoglobin (HGBA1C) 3738.8158 umol/L
[2025-06-19 08:16] LABS: Alanine Aminotransferase 18 U/L (0-40); Albumin Level 4.4 g/dL (3.5-5.0); Alkaline Phosphatase 59 U/L (39-117); Anion Gap 12 (12-20); Aspartate Amino Transferase 24 U/L (5-37); Blood Urea Nitrogen 11 mg/dL (9-16); Calcium 9.2 mg/dL (8.4-10.2); Carbon Dioxide 29 mmol/L (22-29); Chloride 106 mmol/L (96-108); Cholesterol 202 mg/dL (<200); Estimated Glomerular Filt Rate > 60; HDL Cholesterol 37 mg/dL (>40); Potassium 4.0 mmol/L (3.3-5.1); Sodium 143 mmol/L (135-145); Total Protein 7.2 g/dL (6.5-8.0); Triglycerides 250 mg/dL (<150)
[2025-06-19 08:34] LABS: Appearance Urine Clear; Glucose Urine UA Negative (Negative); PH 5.5 (5.0-9.0); Specific Gravity - Urine 1.015 (1.005-1.025)
== END 2025-06-19 06:53 | disposition home or self-care (01) ==
LOC: HO.LAB 06:52
DX: N40.0 Benign prostatic hyperplasia without lower urinary tract symptoms (principal); K21.9 Gastro-esophageal reflux disease without esophagitis; I10 Essential (primary) hypertension; E11.9 Type 2 diabetes mellitus without complications; K30 Functional dyspepsia; R68.81 Early satiety
CPT/HCPCS: 36415; 80053; 80061; 81003; 82306; 83036; 84443; 85025

== ENCOUNTER 2025-06-20 10:17 | Outpatient (AMB) | payer OTHER, SELFPAY ==
[2025-06-20 10:22] VITALS: BP 160/90; PULSE 50; RESP 18; TEMP 36.1; BMI 30.9
--- NOTE | 2025-06-20 10:22 | A.OFFPC_ITS ---
Vital Signs 06/20/25 10:22 Height 5 ft 10 in Weight 215 lb 2 oz BMI 30.9 BP 160/90 H Blood Pressure Location Lt brachial Position Sitting Respiration 18 Pulse 50 Pulse Source Pulse Oximeter Temp 97 F Temp Source Temporal Artery Scan Oxygen Delivery Method Room Air Oxygen Flow Rate 96 Intake Visit Reasons: htn/gerd/DM Slasher Hand Required: No Accompanied by: Self / Same As Patient Allergies lisinopril Allergy (Mild, Verified 06/20/25 10:58) Closed throat sulfamethoxazole (From Bactrim) Allergy (Mild, Verified 06/20/25 10:58) Rash trimethoprim (From Bactrim) Allergy (Mild, Verified 06/20/25 10:58) Rash fish derived (fish) Allergy (Unknown, Verified 06/20/25 10:58) Rash, Redness morphine (MORPHINE) Allergy (Unknown, Verified 06/20/25 10:58) Nausea and Vomiting Sulfa (Sulfonamide Antibiotics) Allergy (Unknown, Verified 06/20/25 10:58) rash Fish Containing Products Adverse Reaction (Unknown, Verified 06/20/25 10:58) Worsens Gout symptoms Medication List - Last Reconciled 06/20/25 by BIANCA Rice blood sugar diagnostic (FreeStyle Lite Strips) As directed once a day blood-glucose meter (FreeStyle Lite Meter kit) As directed glipizide 5 mg PO DAILY lancets (FreeStyle Lancets) As directed once a day multivitamin (Daily Multi-Vitamin tablet) 1 tab PO DAILY omeprazole 40 mg PO DAILY valsartan 80 mg PO DAILY Held on 03/20/25. Instructions: Doctor's Order valsartan 160 mg PO DAILY Tobacco use date assessed: 06/20/25 Dental Screening Dental Screen Date: 06/20/25 Did you have a dental visit in the last 12 months?: Yes Did you have a dental problem in the last 6 months where you did not have access to dental care?: No Was dental information given to patient?: Patient has dentist HPI htn/gerd/DM HPI Details The patient is a 50-year-old male presenting for follow up appointment The patient reports that he has stopped taking his valsartan because it is making his heart rate drop too low and this is making him overly tired The patient blood pressure is elevated at 160/90 in office, per patient, this is because he had a meal last night that contained a lot of salt Reports that when he check his blood pressure at home he is getting much better numbers The patient is allergic to lisinopril due to angioedema Patient had his appointment with Gastroenterology due to his multiple GI symptoms He was placed on Creon and simethicone 125 mg b.i.d. to q.i.d. p.r.n. The patient has stopped these medications and is currently only taking omeprazole 40 mg The patient is still complaining of abdominal discomfort on and off He is currently only taking omeprazole 40 mg daily in a.m. Reports that he still gets heartburn on and off depending on what he eats The patient reports that he is drinking plenty of fluids. When asked to quantify his fluid intake in 6 oz bottles, the patient reports that he is having about 2-3 of these per day [facility] Medical History Physical exam Back pain Neck pain Possible exposure to STD Tendinitis of left elbow Rash Fibroma of skin Obesity Screening for prostate cancer Adult general medical exam Diabetes mellitus with coincident hypertension Gout Sinusitis History of cardiac murmur Avascular necrosis of bone of hip Chronic GERD Sinus infection Diabetes mellitus Dysuria Diabetes COVID-19 Chronic GERD Cough Surgical History History of surgery on right wrist History of esophagogastroduodenoscopy (EGD) H/O colonoscopy H/O total hip arthroplasty H/O wrist surgery History of umbilical hernia repair History of wisdom tooth extraction History of tonsillectomy Family History Father No problems noted. Mother Colon cancer Diabetes Hypertension Family/Other Diabetes Hypertension Social History Housing: Apartment Alcohol intake: never Patient Tobacco Use Status: Never used Tobacco Tobacco use type: Cigarette e-Cigarette/Vaping Use: Never Used Second Hand Smoke Exposure: Yes service: No Current occupational status: disabled Current occupational exposures/hazards: No Cognitive needs: No Hearing needs: No Vision needs: No Questionnaire PHQ-9 Over the last 2 weeks, how often have you been bothered by any of the following problems? 1. Little interest or pleasure in doing things: not at all 2. Feeling down, depressed, or hopeless: not at all 3. Trouble falling or staying asleep, or sleeping too much: not at all 4. Feeling tired or having little energy: not at all 5. Poor appetite or overeating: not at all 6. Feeling bad about yourself - or that you are a failure or have let yourself or your family down: not at all 7. Trouble concentrating on things, such as reading the newspaper or watching television: not at all 8. Moving or speaking so slowly that other people could have noticed. Or the opposite - being so fidgety or restless that you have been moving around a lot more than usual: not at all 9. Thoughts that you would be better off or of hurting yourself in some way: not at all Total score: 0 Depression Screening Interpretation: Negative Depression Screening Done: Yes Source: Developed by Drs. Xavier Blackman, Jossy Puente, Gaurav Ruano and colleagues, with an educational dread from [employer]. Thrive Questionnaire Date Thrive assessed: 06/20/25 I am a: Patient What is your living situation today?: I have a steady place to live Within the past 12 months, did the food you bought not last and you didn't have the money to get more?: Often true Within the past 12 months, did you worry whether your food would run out before you got money to buy more?: Often true Do you have trouble paying for medicines?: No Do you have trouble getting transportation to medical appointments?: No Do you have trouble paying your heating and electricity bill?: No Do you have trouble taking care of your child, family member or friend?: No Do you have trouble with day-to-day activities such as bathing, preparing meals, shopping, managing finances, etc.?: No Are you currently unemployed and looking for a job?: No Are you interested in more education?: No Please select the resources that you would like help with: None Currently or been in a relationship where the following occur: No concerns reported THRIVE Score: 2 AUDIT C Alcohol Use Questionnaire (AUDIT-C) 1. How often do you have a drink containing alcohol?: Never 3. How often do you have six or more drinks on one occasion?: Never Total Score: 0 Score Reviewed/Action Taken: No MICHAEL-7 AMB Questionnaire MICHAEL-7 Date MICHAEL - 7 assessed: 06/20/25 Feeling nervous, anxious, or on edge: 0 = Not at all Not being able to stop or control worryin = Not at all Worrying too much about different things: 0 = Not at all Trouble relaxin = Not at all Being so restless that it is hard to sit still: 0 = Not at all Becoming easily annoyed or irritable: 0 = Not at all Feeling afraid as if something awful might happen: 0 = Not at all Total MICHAEL-7 score (0-4 normal; 5-9 mild; 10-14 moderate; 15-21 severe): 0 Source: Developed by Drs. Xavier Blackman, Jossy Puente, Gaurav Ruano and colleagues, with an educational dread from [employer]. Review of Systems Const Denies body aches, Denies chills, Denies fever(s), Denies headache(s) and Denies poor appetite Eyes Reports no additional complaints ENT Denies dysphagia, Denies dizziness, Denies headache(s) and Denies odynophagia Card Denies chest pain, Denies syncope, Denies edema, Denies irregular heart rhythm, Denies lightheadedness and Denies dyspnea Resp Denies cough and Denies dyspnea GI Denies abdominal pain, Reports bloating, Denies constipation, Denies dysphagia, Reports heartburn, Denies diarrhea, Denies nausea, Denies odynophagia and Denies vomiting Reports no additional complaints Musc Reports no additional complaints and Denies abnormal gait Skin/Breast Reports system reviewed and no additional complaints, except as documented Neuro Denies abnormal gait, Denies dizziness, Denies syncope and Denies headache(s) Psych Reports no additional complaints Physical exam (Primary Care) Vital Signs: Last Vital Signs Temp 97 F 06/20/25 10:22 Pulse 50 06/20/25 10:22 Resp 18 06/20/25 10:22 BP 160/90 H 06/20/25 10:22 Oxygen Delivery Method Room Air 06/20/25 10:22 Oxygen Flow Rate 96 06/20/25 10:22 BMI result Body Mass Index 30.9 Tobacco/Smoking Status: Tobacco use Status Tobacco use date assessed 06/20/25 06/20/25 10:24 Patient Tobacco Use Status Never used Tobacco 06/20/25 10:24 Tobacco use type Cigarette 06/20/25 10:24 e-Cigarette/Vaping Use Never Used 06/20/25 10:24 PHQ-9: PHQ-9 Score PHQ-9: Total score 0 06/20/25 11:04 Depression Screening Interpretation: Negative Thrive Assessment: Date of Thrive Assessment Date Thrive assessed 06/20/25 06/20/25 10:24 Currently or been in a relationship where the following occur: No concerns reported Const General: cooperative, healthy appearing, comfortable and no acute distress Orientation/consciousness: patient oriented x3 HENMT Head: Yes normocephalic Ears: hearing grossly normal bilaterally General nose exam: Normal external nose present Eyes General: appearance normal, both eyes and all related structures Conjunctivae: conjunctivae normal Neck Neck: Yes full ROM and Yes no lymphadenopathy Resp Effort & Inspection: normal respiratory effort Auscultation: clear to auscultation bilaterally, no crackles, no rales, no rhonchi and no wheezes Cardio Rate: regular rate Rhythm: regular rhythm Heart sounds: S1 normal heart sound present, S2 normal heart sound present and no murmurs GI Inspection: Yes obesity Palpation (GI): Soft to palpation and nontender Auscultation: normal bowel sounds General: Yes no CVA tenderness Back/Spine/Pelvis Back: no CVA tenderness Skin General skin exam: no rashes or lesions noted Neuro General: patient oriented x3 Gait exam (Neuro): Normal gait present Extrem General: Yes normal to inspection, Yes full ROM and No edema Right upper extremity: full ROM Left upper extremity: full ROM Right lower extremity: full ROM; no edema Left lower extremity: full ROM; no edema Psych Affect: normal affect Attitude: cooperative Insight: Good insight present (Psych) Judgement: Good judgement present (Psych) Results Reviewed Results Reviewed: Laboratory Tests 06/19/25 06/19/25 07:03 07:05 WBC 7.1 RBC 5.06 Hgb 14.2 Hct 41.8 L MCV 82.6 MCH 28.1 MCHC 34.0 RDW 13.2 Plt Count 234 MPV 10.7 Sodium 143 Potassium 4.0 Chloride 106 Carbon Dioxide 29 Anion Gap 12 BUN 11 Creatinine 1.01 Estimated GFR > 60 Fasting Glucose 119 H Estimat Average Glucose 140 Hemoglobin A1c % 6.5 H Calcium 9.2 Total Bilirubin 0.5 AST 24 ALT 18 Alkaline Phosphatase 59 Triglycerides 250 H Cholesterol 202 H LDL Cholesterol, Calc 115 H HDL Cholesterol 37 L 25-OH Vitamin D Total 28.8 L TSH 2.88 Urine Color Yellow Urine Appearance Clear Urine pH 5.5 Ur Specific [place] 1.015 Urine Protein Negative Urine Glucose (UA) Negative Urine Ketones Negative Urine Blood Negative Urine Nitrite Negative Ur Leukocyte Esterase Negative Coding Level of Care Code Est Pt Level 4 (80122) Diagnoses Type 2 diabetes mellitus with other specified complication, without long-term current use of insulin E11.69 Diabetes mellitus complication status: with other specified complication Diabetes mellitus ocean transportation intermediary insulin use: without ocean transportation intermediary use Diabetes mellitus type: type 2 Obesity (BMI 30.0-34.9) E66.811 Chronic GERD K21.9 Abdominal bloating R14.0 Hypertension, unspecified type I10 Hypertension type: unspecified Time Spent (min) 39 Assessment & Plan Assessment & Plan (1) Diabetes mellitus: Code(s): E11.9 - Type 2 diabetes mellitus without complications Category: Medical Qualifiers: Diabetes mellitus complication status: with other specified complication Diabetes mellitus usp insulin use: without ocean transportation intermediary use Diabetes mellitus type: type 2 Qualified Code(s): E11.69 - Type 2 diabetes mellitus with other specified complication Plan: A1c 6.5% decreased from 7% Reinforced low sugar diet/carbohydrate Continue glipizide 5 mg daily We will recheck fasting glucose and A1c in 3 months (2) Obesity (BMI 30.0-34.9): Code(s): E66.811 - Obesity, class 1 Category: Medical Plan: Encouraged to exercise for at least 30 minutes a day/5 days a week Healthy eating discussed. Encouraged to eat fruits/vegetables, protein- fish/baked chicken, and to avoid salty/fried foods, sweets, caffeine and carbohydrates. Encouraged to increase water intake 6-8 glasses a day (3) Chronic GERD: Code(s): K21.9 - Gastro-esophageal reflux disease without esophagitis Category: Medical Plan: Do not eat meals or drink carbonated beverages within 3 hr of bedtime Decrease the amount of fried, fatty, and spicy foods to decrease gastric acid production Raise the head of the bed using 4 to 6-inch blocks, especially if nocturnal symptoms are present Lose weight if indicated; avoid tight-fitting clothing, especially around the waist Avoid foods that relax the Lower esophageal sphincter (chocolate, peppermint, high-fat foods etc.,) Continue omeprazole 40 mg daily (4) Abdominal bloating: Code(s): R14.0 - Abdominal distension (gaseous) Category: Medical Plan: Encouraged FODMAP diet (5) Hypertension: Code(s): I10 - Essential (primary) hypertension Category: Medical Qualifiers: Hypertension type: unspecified Qualified Code(s): I10 - Essential (primary) hypertension Plan: The patient stopped taking his valsartan 160 mg daily because this was dropping his heart rate too low and causing him to feel tired. On his previous visit he was taking valsartan 80 mg daily, however, his blood pressure was still elevated and this was increased to 160 mg. We will start the patient on amlodipine 10 mg daily and have the patient return in 4 weeks for a nurse visit to get his blood pressure checked. The patient to continue taking his blood pressure at home as usual and to contact that the office for any concerns. Orders: Orders Comprehensive [place]. Panel Fast 3 Months E11.69 - Type 2 diabetes mellitus with other specified complication, E66.811 - Obesity, class 1, I10 - Essential (primary) hypertension, K21.9 - Gastro-esophageal reflux disease without esophagitis, K59.04 - Chronic idiopathic constipation, M54.2 - Cervicalgia, N40.0 - Benign prostatic hyperplasia without lower urinary tract symptoms, R14.0 - Abdominal distension (gaseous) Lipid Panel 3 Months E11.69 - Type 2 diabetes mellitus with other specified complication, E66.811 - Obesity, class 1, I10 - Essential (primary) hypertension, K21.9 - Gastro-esophageal reflux disease without esophagitis, K59.04 - Chronic idiopathic constipation, M54.2 - Cervicalgia, N40.0 - Benign prostatic hyperplasia without lower urinary tract symptoms, R14.0 - Abdominal distension (gaseous) TSH reflex Free T4 3 Months E11.69 - Type 2 diabetes mellitus with other specified complication, E66.811 - Obesity, class 1, I10 - Essential (primary) hypertension, K21.9 - Gastro-esophageal reflux disease without esophagitis, K59. 04 - Chronic idiopathic constipation, M54.2 - Cervicalgia, N40.0 - Benign prostatic hyperplasia without lower urinary tract symptoms, R14.0 - Abdominal distension (gaseous) Hemoglobin A1c 3 Months E11. - Type 2 diabetes mellitus with other specified complication, E66.811 - Obesity, class 1, I10 - Essential (primary) hypertension, K21.9 - Gastro-esophageal reflux disease without esophagitis, K59.04 - Chronic idiopathic constipation, M54.2 - Cervicalgia, N40.0 - Benign prostatic hyperplasia without lower urinary tract symptoms, R14.0 - Abdominal distension (gaseous) Complete Blood Count Auto Diff 3 Months E11. - Type 2 diabetes mellitus with other specified complication, E66.811 - Obesity, class 1, I10 - Essential (primary) hypertension, K21.9 - Gastro-esophageal reflux disease without esophagitis, K59.04 - Chronic idiopathic constipation, M54.2 - Cervicalgia, N40.0 - Benign prostatic hyperplasia without lower urinary tract symptoms, R14.0 - Abdominal distension (gaseous) UA CC w/rflx Micro + Cult 3 Months E11. - Type 2 diabetes mellitus with other specified complication, E66.811 - Obesity, class 1, I10 - Essential (primary) hypertension, K21.9 - Gastro-esophageal reflux disease without esophagitis, K59.04 - Chronic idiopathic constipation, M54.2 - Cervicalgia, N40.0 - Benign prostatic hyperplasia without lower urinary tract symptoms, R14.0 - Abdominal distension (gaseous) Vitamin D 25-OH Total 3 Months . - Type 2 diabetes mellitus with other specified complication, E66.811 - Obesity, class 1, I10 - Essential (primary) hypertension, K21.9 - Gastro-esophageal reflux disease without esophagitis, K59.04 - Chronic idiopathic constipation, M54.2 - Cervicalgia, N40.0 - Benign prostatic hyperplasia without lower urinary tract symptoms, R14.0 - Abdominal distension (gaseous) Medications: New cholecalciferol (vitamin D3) 50 mcg PO DAILY 90 caps 3RF amlodipine 10 mg PO DAILY 90 tabs 3RF Discontinued valsartan Discontinued Reason: Doctor's Order 80 mg PO DAILY 90 tabs 1RF I10 - Essential (primary) hypertension valsartan Discontinued Reason: Doctor's Order 160 mg PO DAILY 30 tabs 2RF
== END 2025-06-20 11:21 | disposition home or self-care (01) ==
LOC: HO.HMCH 10:18
PROVIDERS: PCP Internal Medicine
DX: E11.69 Type 2 diabetes mellitus with other specified complication (principal); E66.811 Obesity, class 1; K21.9 Gastro-esophageal reflux disease without esophagitis; R14.0 Abdominal distension (gaseous); I10 Essential (primary) hypertension; Z68.30 Body mass index [BMI] 30.0-30.9, adult

== ENCOUNTER → 2025-06-20 10:17 | Outpatient (BNVA) | payer OTHER, SELFPAY | PROVIDERS: PCP Internal Medicine | DX: E11.69 Type 2 diabetes mellitus with other specified complication (principal); I10 Essential (primary) hypertension; K21.9 Gastro-esophageal reflux disease without esophagitis; R10.9 Unspecified abdominal pain; E66.811 Obesity, class 1; R14.0 Abdominal distension (gaseous); Z79.899 Other long term (current) drug therapy; Z68.30 Body mass index [BMI] 30.0-30.9, adult | CPT/HCPCS: 96127; 99212 ==

== ENCOUNTER 2025-07-16 07:46 | Outpatient (AMB) | payer OTHER, SELFPAY ==
--- OUTSIDE RECORDS SUMMARY | 2025-07-16 07:50 | XMS_ITS | Encounter Summary ---
Author Organization [facility] Address [address] [place] [address] Encounters * CPT with Medical instED at [employer] on 2025-06-18 { reasonForRequest : sinus infection , patientReports : Sinus infection , denies :[ Sudden onset of dental pain, unable to manage own secretions , Nosebleed lasting longer than one hour; unable to stop bleeding , Throat swel ling/difficult swallowing , Dental pain and fever, able to maintain secretions ,"Conjunctivitis , External Ear concerns ], chiefComplaints : Common Cold , pmh : Gastroesophageal Reflux Disease (GERD), Diabetes Mellitus Type 2, Hypertension , allergies : Bactrim, Morphine , otherAllergies :null , painAssessment : , visitOutcome : , additionalComments : 50 y.o male complains of Common Cold\n\nPain under eyes and ontop of eyebrows \nMild dizziness \nEye drainage\nDenies fever \nNo sick contact \nYellow drainage from nose at times\n\nIprovided information on the mobile health provider response time and advised the patient and/or caregiver to monitor reported signs and symptoms. I discussed the warning signs of when to seek emergency care. } Dispatched to the call address for the male with a possible sinus infection. Pt states he is prone to getting sinus infections and is waiting for a referral to an ENT. He states his last sinus infection was about 4 months ago. He states he has had pain/tenderness in the areas around his nose and eyes as well as yellow nasal discharge and waking up with yellow crust on bottom eye lids for 4 days no w. He endorses a 100.8 fever the other day but non since. He has not taken any OTC medications. He denies chest pain, diff breathing/sob, abd pain, cough, n/v/d or other complaints at this time. Pt has been able to maintain baseline PO intake. Pt was found opening door, CAOx4, airway open and patent, breathing non labored, able to speak in full sentences, -JVD, skin color appropriate for race/warm/dry with good turgor, mucous membranes pink and moist, abd soft non tender/distended, pupils PERRL, lungs CTA, -CVA tenderness, +CMSx4, -edema, +light swelling under eyes, +tenderness in sinus regions. Rapid Covid (-) Sinus Infection Pt was assessed. Rapid Covid test conducted. vitals. [facility] consulted. Pt given Augmentin. Script called into preferred pharmacy. Red flags discussed. ALL times are approx. IV_(FLUIDS_AND/OR_MEDICATION), MEDICATION_IM, POC_BLOODWORK Written by Medical inst[facility] on 2025-06-18
[2025-07-16 08:04] VITALS: BP 142/74; PULSE 56; O2SAT 97
--- NOTE | 2025-07-16 08:04 | MHC.OFFVIS ---
Vital Signs 07/16/25 08:04 Height 5 ft 10 in Weight 209 lb BMI 30.0 BP 142/74 H Blood Pressure Location Rt brachial Position Sitting Pulse 56 Pulse Source Pulse Oximeter Pulse Oximetry (%) 97 Oxygen Delivery Method Room Air Intake Visit Reasons: bloating Intake Note: ESTABLISHED PATIENT for Abd bloating, chronic GERD mgmt. Chief Complaint; Pt states that he has been making some dietary changes (including but not limited to dairy), and that has made a huge impact on his sx. Pt confirms that the bisacodyl and omeprazole are also OK to this point. Utility Tech Required: No Accompanied by: Self / Same As Patient Allergies lisinopril Allergy (Mild, Verified 06/20/25 10:58) Closed throat sulfamethoxazole (From Bactrim) Allergy (Mild, Verified 06/20/25 10:58) Rash trimethoprim (From Bactrim) Allergy (Mild, Verified 06/20/25 10:58) Rash fish derived (fish) Allergy (Unknown, Verified 06/20/25 10:58) Rash, Redness morphine (MORPHINE) Allergy (Unknown, Verified 06/20/25 10:58) Nausea and Vomiting Sulfa (Sulfonamide Antibiotics) Allergy (Unknown, Verified 06/20/25 10:58) rash Fish Containing Products Adverse Reaction (Unknown, Verified 06/20/25 10:58) Worsens Gout symptoms HPI HPI bloating: Details: LAST VISIT: Abdominal bloating Chronic GERD Constipation Plan Patient will continue taking omeprazole daily. Avoid dietary triggers and late night snacking. Staying upright for minimum 3 hours after meals discussed with patient. Patient can continue taking probiotics. We will try to send him script for Ruchi and he can try to take the to see if his bloating will go away. In march use simethicone as needed. Discussed with patient low FODMAP diet. List of food recommended as well as list of food to avoid given to patient. Patient will follow-up in 4 months, sooner on as needed basis. He is agreeable to this plan and verbalizes understanding of instructions. He was given the opportunity to ask questions and all questions answered. ? Thank you for allowing me to participate in his care New simethicone 125 mg PO BID-QID PRN 120 caps 3RF abdominal distention K21.9 bminff-mgnkltle-spnmvax 36,000-114,000- 180,000 unit (Creon) administer with meals and/or snacks 1 cap PO QID 120 caps 3RF R14.0 Discontinued simethicone (Gas Relief (simethicone)) chew tabs before swallowing give after meals or at bedtime Discontinued Reason: Doctor's Order 80 mg PO TID-QID 30 days PRN 120 tabs 3RF abdominal distention TODAY'S VISIT: Patient is here today for follow-up. Patient reports that he has been feeling well since last visit. Patient reports that he made adjustment with his diet. Stop drinking milk and consuming milk products. Patient no longer is bloated. Also avoiding wheat bread. Started taking Dulcolax 2 tablets every night and is emptying his bowels better. Patient reports that he lost 10 lb since last visit and no longer is bloated. Dietary adjustment made since last visit are helping patient feel better. He is taking omeprazole every morning. Patient denies dyspepsia, dysphagia or odynophagia. Denies melena, hematochezia, unintentional weight loss or ribbon like stools. [facility] Medical History Physical exam Back pain Neck pain Possible exposure to STD Tendinitis of left elbow Rash Fibroma of skin Obesity Screening for prostate cancer Adult general medical exam Diabetes mellitus with coincident hypertension Gout Sinusitis History of cardiac murmur Avascular necrosis of bone of hip Chronic GERD Sinus infection Diabetes mellitus Dysuria Diabetes COVID-19 Chronic GERD Cough Surgical History History of surgery on right wrist History of esophagogastroduodenoscopy (EGD) H/O colonoscopy H/O total hip arthroplasty H/O wrist surgery History of umbilical hernia repair History of wisdom tooth extraction History of tonsillectomy Family History Father No problems noted. Mother Colon cancer Diabetes Hypertension Family/Other Diabetes Hypertension Social History Housing: Apartment Alcohol intake: never Patient Tobacco Use Status: Never used Tobacco Tobacco use type: Cigarette e-Cigarette/Vaping Use: Never Used Second Hand Smoke Exposure: Yes service: No Current occupational status: disabled Current occupational exposures/hazards: No Cognitive needs: No Hearing needs: No Vision needs: No Review of Systems Const Denies weight gain and Denies weight loss ENT Reports no additional complaints, Denies dysphagia and Denies odynophagia Card Reports no additional complaints Resp Reports no additional complaints GI Denies abdominal pain, Denies belching, Denies melena, Denies bloating, Denies change in bowel habits, Denies constipation, Denies dysphagia, Denies excessive flatus, Denies dyspepsia, Denies heartburn, Denies diarrhea, Denies loose stools, Denies nausea, Denies odynophagia and Denies vomiting Reports no additional complaints Musc Reports no additional complaints Neuro Reports no additional complaints Psych Reports no additional complaints Endo Reports no additional complaints Physical Exam Const General: healthy appearing, no acute distress and well developed Nutritional Appearance: well nourished and obese Orientation/consciousness: patient oriented x3 Resp Effort & Inspection: normal respiratory effort, able to speak in complete sentences, no tracheal deviation and symmetric chest movement Auscultation: clear to auscultation bilaterally Cardio Rate: regular rate GI Inspection: Yes normal to inspection, No distended and Yes obesity Palpation (GI): Soft to palpation, not firm, nontender and No hepatosplenomegaly present Auscultation: normal bowel sounds General: Yes no CVA tenderness Back/Spine/Pelvis Back: no CVA tenderness Skin General skin exam: elasticity normal, turgor normal and dry skin Neuro General: patient oriented x3 Psych Appearance: grossly normal Mental Status: mental status grossly normal Assessment & Plan Assessment & Plan (1) Chronic GERD: Code(s): K21.9 - Gastro-esophageal reflux disease without esophagitis Category: Medical (2) Chronic idiopathic constipation: Code(s): K59.04 - Chronic idiopathic constipation Category: Medical (3) Abdominal bloating: Code(s): R14.0 - Abdominal distension (gaseous) Category: Medical Plan Patient will continue taking Dulcolax daily. Avoid dietary triggers and like and hiking. Staying upright for minimal 3 hours after meals this us with patient. Continue omeprazole. Continue low FODMAP diet. Follow-up in 6 months, sooner on as needed basis. Patient is agreeable to plan of care and verbalizes understanding of instructions. He was given the opportunity to ask questions and all questions answered. Thank you for allowing me to participate in his care Medications: New bisacodyl (Dulcolax (bisacodyl)) 10 mg (2 x 5 mg) PO BEDTIME 180 tabs 4RF Refilled omeprazole 40 mg PO DAILY 90 caps 3RF K21.9 - Gastro-esophageal reflux disease without esophagitis Coding Level of Care Code Est Pt Level 3 (39437) Diagnoses Chronic GERD K21.9 Chronic idiopathic constipation K59.04 Abdominal bloating R14.0 Time Spent (min) 25 Comment 15 minutes spent with patient and additional 10 minutes spent reviewing her records
== END 2025-07-16 08:18 | disposition home or self-care (01) ==
LOC: HO.HGI 07:47
PROVIDERS: Visit Provider Nurse Practitioner Family
DX: K21.9 Gastro-esophageal reflux disease without esophagitis (principal); K59.04 Chronic idiopathic constipation; R14.0 Abdominal distension (gaseous)
CPT/HCPCS: 99213

== ENCOUNTER → 2025-07-16 07:46 | Outpatient (BNVA) | payer OTHER, SELFPAY | PROVIDERS: Visit Provider Nurse Practitioner Family | DX: K21.9 Gastro-esophageal reflux disease without esophagitis (principal); K59.04 Chronic idiopathic constipation; R14.0 Abdominal distension (gaseous) | CPT/HCPCS: 99212 ==

== ENCOUNTER 2025-08-14 06:03 | Emergency (ER) | payer OTHER, SELFPAY ==
--- NOTE | ~2025-08-14 | XR_ITS ---
CLINICAL HISTORY: injury 3 view left elbow Comparison: CR/SR - XR ELBOW 3 VIEWS LEFT - 04/30/23 11:48 EDT Findings: Bones intact. No dislocations. Soft tissue structures appear intact. IMPRESSION: No acute osseous abnormality is identified. This document has been electronically signed by: Rose Marie Herrera on 08/14/2025 08:02:42
[2025-08-14 06:05] VITALS: BP 155/69; PULSE 55; RESP 16; TEMP 36.7; O2SAT 97; BMI 30.4
--- NOTE | 2025-08-14 06:15 | ED.EXTPRO ---
HPI - Extremity Problem General Chief complaint: Extremity Problem Stated complaint: elbow pain Time Seen by Provider: 08/14/25 06:11 Source: patient Mode of arrival: ambulatory Limitations: no limitations History of Present Illness ED Provider: HPI Narrative: 50-year-old male history of diabetes presenting with may traumatic left elbow swelling, he states he was carrying a box of water and felt something pull in his elbow and has been having swelling on the outside no fevers or chills no redness no drainage. No numbness in the extremity no chest pain or shortness of breath. Related Data Home Medications ?Medication ?Instructions ?Recorded ?Confirmed multivitamin (Daily Multi-Vitamin 1 tab PO DAILY 04/06/23 06/20/25 tablet) fluticasone propionate 50 intranasal 07/16/25 mcg/actuation nasal spray,suspension sodium chloride 0.65 % nasal spray 2 spray intranasal Q3H 07/16/25 aerosol (Saline Nasal) valsartan 160 mg tablet 160 mg PO DAILY 07/16/25 Previous Rx's ?Medication ?Instructions ?Recorded blood-glucose meter (FreeStyle #1 ea 08/31/23 Lite Meter kit) lancets 28 gauge (FreeStyle #100 ea 08/31/23 Lancets) blood sugar diagnostic (FreeStyle #100 ea 09/18/24 Lite Strips) cholecalciferol (vitamin D3) 50 50 mcg PO DAILY #90 caps 06/20/25 mcg (2,000 unit) capsule glipizide 5 mg tablet 5 mg PO DAILY #90 tabs 07/13/25 bisacodyl 5 mg tablet,delayed 10 mg (2 x 5 mg) PO BEDTIME #180 07/16/25 release (Dulcolax (bisacodyl)) tabs omeprazole 40 mg capsule,delayed 40 mg PO DAILY #90 caps 07/16/25 release Allergies Allergy/AdvReac Type Severity Reaction Status Date / Time lisinopril Allergy Mild Closed Verified 08/14/25 06:07 throat sulfamethoxazole (From Allergy Mild Rash Verified 08/14/25 06:07 Bactrim) trimethoprim (From Bactrim) Allergy Mild Rash Verified 08/14/25 06:07 fish derived (fish) Allergy Unknown Rash, Verified 08/14/25 06:07 Redness morphine (MORPHINE) Allergy Unknown Nausea and Verified 08/14/25 06:07 Vomiting Sulfa (Sulfonamide Allergy Unknown rash Verified 08/14/25 06:07 Antibiotics) Fish Containing Products AdvReac Unknown Worsens Verified 08/14/25 06:07 Gout symptoms Review of Systems Constitutional: Constitutional: Reports as per [facility] Past Medical History Medical History Physical exam Back pain Neck pain Possible exposure to STD Tendinitis of left elbow Rash Fibroma of skin Obesity Screening for prostate cancer Adult general medical exam Diabetes mellitus with coincident hypertension Gout Sinusitis History of cardiac murmur Avascular necrosis of bone of hip Chronic GERD Sinus infection Diabetes mellitus Dysuria Diabetes COVID-19 Chronic GERD Cough Surgical History History of surgery on right wrist History of esophagogastroduodenoscopy (EGD) H/O colonoscopy H/O total hip arthroplasty H/O wrist surgery History of umbilical hernia repair History of wisdom tooth extraction History of tonsillectomy Family History Family History Father No problems noted. Mother Colon cancer Diabetes Hypertension Family/Other Diabetes Hypertension Social History Social History Housing: Apartment Alcohol intake: current Alcohol intake frequency: holidays/special occasions only Patient Tobacco Use Status: Never used Tobacco Tobacco use type: Cigarette Smoked in Last 30 Days: No e-Cigarette/Vaping Use: Never Used Second Hand Smoke Exposure: Yes Use of substances other than those prescribed or required for medical reasons: No Advance Directives: No Advance Directives Information Provided: Yes Do you have a plan to hurt others: No Plan service: No Current occupational status: disabled Current occupational exposures/hazards: No Cognitive needs: No Hearing needs: No Vision needs: No Physical Exam Vital Signs: Vital Signs: Last Vital Signs Temp 98.1 F 08/14/25 06:05 Pulse 55 08/14/25 06:05 Resp 16 08/14/25 06:05 BP 155/69 H 08/14/25 06:05 Pulse Ox 97 08/14/25 06:05 O2 Del Method Room Air 08/14/25 06:05 BMI result Body Mass Index 30.4 Const: Other: Full range of motion of left shoulder, lacks approximately 5-10 degrees of extension left elbow, slight swelling over the olecranon without redness without drainage, distal neurovascular function is intact, radial ulnar median motor and sensory function intact Medications Administered Discontinued Medications Generic Name Dose Route Start Last Admin Trade Name Anisha PRN Reason Stop Dose Admin Ketorolac Tromethamine 15 mg 08/14/25 06:15 08/14/25 06:31 Ketorolac Tromethamine 15 Mg/Ml Vial IM 08/14/25 06:16 15 mg ONCE ONE Administration Medical Decision Making Medical Decision Making MDM Narrative: 6:18 AM 08/14/2025 (Dr. Piter Hargrove): Clinically presenting with non infectious olecranon bursitis, lacks 5-10 degrees of extension after carrying heavy case of water we will obtain x-rays just to make sure there was no radial head fracture that could have caused intra-articular issue that is causing the lack of extension as olecranon bursitis should not cause lack of extension, no evidence for proximal or distal compartment edema to suspect need for DVT studies such as ultrasound. Differential Diagnosis Differential Diagnoses: The differential diagnosis associated with the presentation includes (Inflammatory bursitis, infectious bursitis, radial head fracture, septic joint) Independent Interpretation I performed an independent interpretation of an: Plain X-Ray (No obvious fractures) Radiology Impression Discussion of test interpretation with radiology: I have reviewed the radiologist's reading. Tests considered The following testing was considered but not selected: Ultrasound DVT study left upper extremity, CBC, ESR, CRP Prescription Management I considered prescription management with: Pain Medication Discharge Plan Discharge Clinical Impression: Bursitis, olecranon Qualifiers: Laterality: left Qualified Code(s): M70.22 - Olecranon bursitis, left elbow Patient Disposition: Home, Self-Care Additional Instructions: Do not lean on the elbow, try not to hit it, take ibuprofen 400 mg every 6 hours for the next few days, ice the area this will resolve if it becomes red, starts draining you spike fevers come back to the ER olecranon bursitis can sometimes get infected but usually it is if people keep leaning on the elbow and there is irritation or cut over the area Your x-rays are unremarkable Prescriptions: No Action (DME) blood-glucose meter [FreeStyle Lite Meter] Kit See Rx Instructions .ROUTE .MEDSUPPLY Qty: 1 0RF Rx Instructions: As directed (DME) lancets [FreeStyle Lancets] 28 gauge misc See Rx Instructions .ROUTE .MEDSUPPLY Qty: 100 12RF Rx Instructions: As directed once a day (DME) FreeStyle Lite Strips Strip See Rx Instructions .ROUTE .MEDSUPPLY Qty: 100 12RF Rx Instructions: As directed once a day glipizide 5 mg tablet 5 mg PO DAILY Qty: 90 1RF multivitamin [Daily Multi-Vitamin] Tablet 1 tab PO DAILY cholecalciferol (vitamin D3) 50 mcg (2,000 unit) capsule 50 mcg PO DAILY Qty: 90 3RF fluticasone propionate 50 mcg/actuation spray,suspension intranasal valsartan 160 mg tablet 160 mg PO DAILY Saline Nasal 0.65 % aerosol,spray 2 spray intranasal Q3H bisacodyl [Dulcolax (bisacodyl)] 5 mg tablet,delayed release (DR/EC) 10 mg PO BEDTIME Qty: 180 4RF omeprazole 40 mg capsule,delayed release(DR/EC) 40 mg PO DAILY Qty: 90 3RF Print Language: Kyrgyz
--- NOTE | 2025-08-14 06:38 | PC.NURSE ---
pt medicated per mar.
[2025-08-14 06:53] VITALS: BP 155/69; PULSE 55; RESP 16; TEMP 36.7; O2SAT 97
== END 2025-08-14 06:54 | disposition home or self-care (01) ==
PROVIDERS: Emergency Provider Emergency Medicine
DX: M70.22 Olecranon bursitis, left elbow (principal); R60.9 Edema, unspecified; E11.9 Type 2 diabetes mellitus without complications; I10 Essential (primary) hypertension
CPT/HCPCS: 73080; 96372; 99284; J1885

== ENCOUNTER → 2025-08-14 06:15 | Outpatient (BNV) | payer OTHER, SELFPAY | PROVIDERS: Emergency Provider Emergency Medicine; Visit Provider Radiology Vascular & Interventional Radiology | DX: S59.902A Unspecified injury of left elbow, initial encounter (principal); X50.0XXA Overexertion from strenuous movement or load, initial encounter | CPT/HCPCS: 73080 ==

== ENCOUNTER 2025-08-23 07:55 | Outpatient (AMB) | payer OTHER, SELFPAY ==
[2025-08-23 07:57] VITALS: BP 154/82; PULSE 70; O2SAT 98; BMI 29.7
--- NOTE | 2025-08-23 07:57 | MHC.PC.OV ---
Vital Signs 08/23/25 07:57 Height 5 ft 10 in Weight 207 lb BMI 29.7 BP 154/82 H Blood Pressure Location Rt brachial Position Sitting Pulse 70 Pulse Source Pulse Oximeter Pulse Oximetry (%) 98 Oxygen Delivery Method Room Air Intake Visit Reasons: ed follow up from 08/14 Allergies lisinopril Allergy (Mild, Verified 08/23/25 07:57) Closed throat sulfamethoxazole (From Bactrim) Allergy (Mild, Verified 08/23/25 07:57) Rash trimethoprim (From Bactrim) Allergy (Mild, Verified 08/23/25 07:57) Rash fish derived (fish) Allergy (Unknown, Verified 08/23/25 07:57) Rash, Redness morphine (MORPHINE) Allergy (Unknown, Verified 08/23/25 07:57) Nausea and Vomiting Sulfa (Sulfonamide Antibiotics) Allergy (Unknown, Verified 08/23/25 07:57) rash Fish Containing Products Adverse Reaction (Unknown, Verified 08/23/25 07:57) Worsens Gout symptoms Tobacco use date assessed: 06/20/25 Dental Screening Dental Screen Date: 06/20/25 HPI HPI Comments History of Present Illness Details 50 Y/O Male patient who presents to the clinic today for EDF. He was [place] [facility] [place] [place] for evaluation and treatment of Left Olecranon Bursitis. All testing and imaging negative for Fx. He was discharged home on NSAIDs. Today reports complete resolution, no pain pain and swelling resolved. [facility] Medical History (Updated 08/23/25 @ 08:21 by Gissell Al NP) Bursitis Physical exam Back pain Neck pain Possible exposure to STD Tendinitis of left elbow Rash Fibroma of skin Obesity Screening for prostate cancer Adult general medical exam Diabetes mellitus with coincident hypertension Gout Sinusitis History of cardiac murmur Avascular necrosis of bone of hip Chronic GERD Sinus infection Diabetes mellitus Dysuria Diabetes COVID-19 Chronic GERD Cough Surgical History History of surgery on right wrist History of esophagogastroduodenoscopy (EGD) H/O colonoscopy H/O total hip arthroplasty H/O wrist surgery History of umbilical hernia repair History of wisdom tooth extraction History of tonsillectomy Family History Father No problems noted. Mother Colon cancer Diabetes Hypertension Family/Other Diabetes Hypertension Social History Housing: Apartment Alcohol intake: current Alcohol intake frequency: holidays/special occasions only Patient Tobacco Use Status: Never used Tobacco Tobacco use type: Cigarette e-Cigarette/Vaping Use: Never Used Second Hand Smoke Exposure: Yes service: No Current occupational status: disabled Current occupational exposures/hazards: No Cognitive needs: No Hearing needs: No Vision needs: No Questionnaire Thrive Questionnaire Date Thrive assessed: 03/20/25 I am a: Patient What is your living situation today?: I have a steady place to live Within the past 12 months, did the food you bought not last and you didn't have the money to get more?: Often true Within the past 12 months, did you worry whether your food would run out before you got money to buy more?: Often true Do you have trouble paying for medicines?: No Do you have trouble getting transportation to medical appointments?: No Do you have trouble paying your heating and electricity bill?: No Do you have trouble taking care of your child, family member or friend?: No Do you have trouble with day-to-day activities such as bathing, preparing meals, shopping, managing finances, etc.?: No Are you currently unemployed and looking for a job?: No Are you interested in more education?: No Please select the resources that you would like help with: None Currently or been in a relationship where the following occur: No concerns reported THRIVE Score: 2 MICHAEL-7 AMB Questionnaire MICHAEL-7 Date MICHAEL - 7 assessed: 06/20/25 Source: Developed by Drs. Xavier Blackman, Jossy Puente, Gaurav Ruano and colleagues, with an educational dread from [email or web address]. Review of Systems Const All systems reviewed & are unremarkable except as noted in HPI and below Physical exam (Primary Care) Vital Signs: Last Vital Signs Pulse 70 08/23/25 07:57 BP 154/82 H 08/23/25 07:57 Pulse Ox 98 08/23/25 07:57 Oxygen Delivery Method Room Air 08/23/25 07:57 BMI result Body Mass Index 29.7 Tobacco/Smoking Status: Tobacco use Status Tobacco use date assessed 06/20/25 08/23/25 08:02 Patient Tobacco Use Status Never used Tobacco 08/23/25 08:02 Tobacco use type Cigarette 08/23/25 08:02 e-Cigarette/Vaping Use Never Used 08/23/25 08:02 Thrive Assessment: Date of Thrive Assessment Date Thrive assessed 03/20/25 08/23/25 08:02 Currently or been in a relationship where the following occur: No concerns reported Const General: no acute distress Nutritional Appearance: well nourished Orientation/consciousness: patient oriented x3 Neuro General: patient oriented x3, gait normal and moves all extremities Extrem Left upper extremity: elbow/forearm Details: normal to inspection, tenderness Location: of the olecranon (Mild tenderness ) and normal ROM; no swelling, no crepitus and no deformity and wrist (Mild Tenderness Volar) Psych Speech and movement: Normal speech and movement present Coding Level of Care Code Est Pt Level 4 (20868) Diagnoses Olecranon bursitis of left elbow M70.22 Bursitis location: elbow Elbow bursitis location: olecranon bursitis Laterality: left Time Spent (min) 20 Assessment & Plan Assessment & Plan (1) Bursitis: Code(s): M71.9 - Bursopathy, unspecified Category: Medical Qualifiers: Bursitis location: elbow Elbow bursitis location: olecranon bursitis Laterality: left Qualified Code(s): M70.22 - Olecranon bursitis, left elbow Plan: Resolved. NSAIDs for mild Tenderness Ice/heat PRN Rest Joint if needed.
== END 2025-08-23 08:17 | disposition home or self-care (01) ==
LOC: HO.HMCH 07:56
PROVIDERS: Visit Provider Nurse Practitioner Family
DX: M70.22 Olecranon bursitis, left elbow (principal)

== ENCOUNTER → 2025-08-23 07:55 | Outpatient (BNVA) | payer OTHER, SELFPAY | PROVIDERS: Visit Provider Nurse Practitioner Family | DX: M70.22 Olecranon bursitis, left elbow (principal) | CPT/HCPCS: 99212 ==

== ENCOUNTER 2025-09-19 08:48 | Outpatient (REF) | payer OTHER, SELFPAY ==
[2025-09-19 09:06] LABS: MANUAL DIFF FLAG NO
[2025-09-19 09:49] LABS: Hematocrit 44.7 % (42.0-52.0); Hemoglobin 14.7 g/dl (14.0-18.0); Imm Gran Abs Auto 0.02 X10*3/uL (0.00-0.03); Imm Gran Pct Auto 0.3 % (0.0-0.4); Lymphocytes Absolute Auto 3.3 X10*3/uL (1.2-4.9); Mean Corpuscular HGB Conc 32.9 g/dl (31.0-36.0); Mean Corpuscular Hemoglobin 27.4 pg (27.0-33.0); Mean Corpuscular Volume 83.2 fL (80.0-98.0); NRBC Abs Auto 0.030 X10*3/uL (0.0-0.012); NRBC Pct Auto 0.4 /100WBC (0.0-0.2); Platelet Count 262 X10*3/uL (160-400); Red Blood Count 5.37 X10*6/uL (4.60-5.80); White Blood Count 7.2 X10*3/uL (4.8-10.8)
[2025-09-19 10:18] LABS: Appearance Urine Clear; Glucose Urine UA Negative (Negative); PH 5.5 (5.0-9.0); Specific Gravity - Urine 1.020 (1.005-1.025)
[2025-09-19 10:32] LABS: Alanine Aminotransferase 14 U/L (0-40); Albumin Level 4.5 g/dL (3.5-5.0); Alkaline Phosphatase 69 U/L (39-117); Anion Gap 10 (12-20); Aspartate Amino Transferase 17 U/L (5-37); Blood Urea Nitrogen 25 mg/dL (9-16); Calcium 9.5 mg/dL (8.4-10.2); Carbon Dioxide 30 mmol/L (22-29); Chloride 106 mmol/L (96-108); Cholesterol 221 mg/dL (<200); Estimated Glomerular Filt Rate > 60; HDL Cholesterol 41 mg/dL (>40); Potassium 4.1 mmol/L (3.3-5.1); Sodium 142 mmol/L (135-145); Total Protein 7.6 g/dL (6.5-8.0); Triglycerides 171 mg/dL (<150)
== END 2025-09-19 08:49 | disposition home or self-care (01) ==
LOC: HO.LAB 08:48
DX: I10 Essential (primary) hypertension (principal); E11.69 Type 2 diabetes mellitus with other specified complication; E66.811 Obesity, class 1; K21.9 Gastro-esophageal reflux disease without esophagitis; K59.04 Chronic idiopathic constipation; N40.0 Benign prostatic hyperplasia without lower urinary tract symptoms; M54.2 Cervicalgia; R14.0 Abdominal distension (gaseous)
CPT/HCPCS: 36415; 80053; 80061; 81003; 82306; 83036; 84443; 85025

== ENCOUNTER 2025-09-20 10:24 | Outpatient (AMB) | payer OTHER, SELFPAY ==
[2025-09-20 10:26] VITALS: BP 144/72; PULSE 54; RESP 18; O2SAT 99; BMI 30.1
--- NOTE | 2025-09-20 10:26 | A.OFFPC_ITS ---
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: No Accompanied by: Self / Same As Patient Allergies lisinopril Allergy (Mild, Verified 09/20/25 10:47) Closed throat sulfamethoxazole (From Bactrim) Allergy (Mild, Verified 09/20/25 10:47) Rash trimethoprim (From Bactrim) Allergy (Mild, Verified 09/20/25 10:47) Rash fish derived (fish) Allergy (Unknown, Verified 09/20/25 10:47) Rash, Redness morphine (MORPHINE) Allergy (Unknown, Verified 09/20/25 10:47) Nausea and Vomiting Sulfa (Sulfonamide Antibiotics) Allergy (Unknown, Verified 09/20/25 10:47) rash Fish Containing Products Adverse Reaction (Unknown, Verified 09/20/25 10:47) Worsens Gout symptoms Medication List - Last Reconciled 09/20/25 by BIANCA Rice bisacodyl (Dulcolax (bisacodyl)) 10 mg (2 x 5 mg) PO BEDTIME blood sugar diagnostic (FreeStyle Lite Strips) As directed once a day blood-glucose meter (FreeStyle Lite Meter kit) As directed cholecalciferol (vitamin D3) 50 mcg PO DAILY fluticasone propionate 50 mcg/actuation intranasal glipizide 5 mg PO DAILY ibuprofen 600 mg PO Q6H PRN lancets (FreeStyle Lancets) As directed once a day omeprazole 40 mg PO DAILY sodium chloride 0.65% (Saline Nasal) 2 sprays intranasal Q3H valsartan 160 mg PO DAILY Tobacco use date assessed: 09/20/25 Dental Screening Dental Screen Date: 09/20/25 Did you have a dental visit in the last 12 months?: Yes Did you have a dental problem in the last 6 months where you did not have access to dental care?: No Was dental information given to patient?: Patient has dentist HPI DM/HTN/GERD- repeat A1C HPI Details The patient is a 50-year-old male presenting for DM/HTN/GERD/Consitpation follow up. Recent labs reviewed for the patient. Regarding his chronic conditions, his diabetes is reported to be well- controlled. However, his cholesterol is elevated, which he attributes to sometimes cheating on his diet, particularly with fried foods, red meat, and egg yolks. His blood pressure was a little high on the day of the visit, which he attributes to attending a birthday democrat the day before. The patient denies chest pain, shortness of breath, heart palpitation and dizziness Denies abdominal pain or change in bowel habits Denies any urinary symptoms PFSH Medical History Bursitis Physical exam Back pain Neck pain Possible exposure to STD Tendinitis of left elbow Rash Fibroma of skin Obesity Screening for prostate cancer Adult general medical exam Diabetes mellitus with coincident hypertension Gout Sinusitis History of cardiac murmur Avascular necrosis of bone of hip Chronic GERD Sinus infection Diabetes mellitus Dysuria Diabetes COVID-19 Chronic GERD Cough Surgical History History of surgery on right wrist History of esophagogastroduodenoscopy (EGD) H/O colonoscopy H/O total hip arthroplasty H/O wrist surgery History of umbilical hernia repair History of wisdom tooth extraction History of tonsillectomy Family History Father No problems noted. Mother Colon cancer Diabetes Hypertension Family/Other Diabetes Hypertension Social History Housing: Apartment Alcohol intake: current Alcohol intake frequency: holidays/special occasions only Patient Tobacco Use Status: Never used Tobacco Tobacco use type: Cigarette e-Cigarette/Vaping Use: Never Used Second Hand Smoke Exposure: Yes service: No Current occupational status: disabled Current occupational exposures/hazards: No Cognitive needs: No Hearing needs: No Vision needs: No Questionnaire PHQ-9 Over the last 2 weeks, how often have you been bothered by any of the following problems? Depression Screening Interpretation: Negative Depression Screening Done: Yes Source: Developed by Drs. Xavier Blackman, Jossy Puente, Gaurav Ruano and colleagues, with an educational dread from [employer]. Thrive Questionnaire Date Thrive assessed: 03/20/25 I am a: Patient What is your living situation today?: I have a steady place to live Within the past 12 months, did the food you bought not last and you didn't have the money to get more?: Often true Within the past 12 months, did you worry whether your food would run out before you got money to buy more?: Often true Do you have trouble paying for medicines?: No Do you have trouble getting transportation to medical appointments?: No Do you have trouble paying your heating and electricity bill?: No Do you have trouble taking care of your child, family member or friend?: No Do you have trouble with day-to-day activities such as bathing, preparing meals, shopping, managing finances, etc.?: No Are you currently unemployed and looking for a job?: No Are you interested in more education?: No Please select the resources that you would like help with: None Currently or been in a relationship where the following occur: No concerns r eported THRIVE Score: 2 MICHAEL-7 AMB Questionnaire MICHAEL-7 Date MICHAEL - 7 assessed: 06/20/25 Source: Developed by Drs. Xavier Blackman, Jossy Puente, Gaurav Ruano and colleagues, with an educational dread from [employer]. Review of Systems Const Denies body aches, Denies chills, Denies fever(s), Denies headache(s) and Denies poor appetite Eyes Reports no additional complaints ENT Denies dysphagia, Denies dizziness, Denies headache(s) and Denies odynophagia Card Denies chest pain, Denies syncope, Denies edema, Denies irregular heart rhythm, Denies lightheadedness and Denies dyspnea Resp Denies cough and Denies dyspnea GI Denies abdominal pain, Reports bloating, Denies constipation, Denies dysphagia, Reports heartburn, Denies diarrhea, Denies nausea, Denies odynophagia and Denies vomiting Reports no additional complaints Musc Reports no additional complaints and Denies abnormal gait Skin/Breast Reports system reviewed and no additional complaints, except as documented Neuro Denies abnormal gait, Denies dizziness, Denies syncope and Denies headache(s) Psych Reports no additional complaints Physical exam (Primary Care) Vital Signs: Last Vital Signs Pulse 54 09/20/25 10:26 Resp 18 11/07/25 10:26 BP 144/72 H 09/20/25 10:26 Pulse Ox 99 09/20/25 10:26 Oxygen Delivery Method Room Air 09/20/25 10:26 BMI result Body Mass Index 30.1 Tobacco/Smoking Status: Tobacco use Status Tobacco use date assessed 09/20/25 09/20/25 10:31 Patient Tobacco Use Status Never used Tobacco 09/20/25 10:31 Tobacco use type Cigarette 09/20/25 10:31 e-Cigarette/Vaping Use Never Used 09/20/25 10:31 Depression Screening Interpretation: Negative Thrive Assessment: Date of Thrive Assessment Date Thrive assessed 03/20/25 09/20/25 10:31 Currently or been in a relationship where the following occur: No concerns reported Const General: cooperative, healthy appearing, comfortable and no acute distress Orientation/consciousness: patient oriented x3 HENMT Head: Yes normocephalic Ears: hearing grossly normal bilaterally General nose exam: Normal external nose present Eyes General: appearance normal, both eyes and all related structures Conjunctivae: conjunctivae normal Neck Neck: Yes full ROM and Yes no lymphadenopathy Resp Effort & Inspection: normal respiratory effort Auscultation: clear to auscultation bilaterally, no crackles, no rales, no rhonchi and no wheezes Cardio Rate: regular rate Rhythm: regular rhythm Heart sounds: S1 normal heart sound present, S2 normal heart sound present and no murmurs GI Inspection: Yes obesity Palpation (GI): Soft to palpation and nontender Auscultation: normal bowel sounds General: Yes no CVA tenderness Back/Spine/Pelvis Back: no CVA tenderness Skin General skin exam: no rashes or lesions noted Neuro General: patient oriented x3 Gait exam (Neuro): Normal gait present Extrem General: Yes normal to inspection, Yes full ROM and No edema Right upper extremity: full ROM Left upper extremity: full ROM Right lower extremity: full ROM; no edema Left lower extremity: full ROM; no edema Psych Affect: normal affect Attitude: cooperative Insight: Good insight present (Psych) Judgement: Good judgement present (Psych) Results Reviewed Results Reviewed: Laboratory Tests 09/19/25 09/19/25 08:59 09:04 WBC 7.2 RBC 5.37 Hgb 14.7 Hct 44.7 MCV 83.2 MCH 27.4 MCHC 32.9 RDW 13.1 Plt Count 262 MPV 10.8 Sodium 142 Potassium 4.1 Chloride 106 Carbon Dioxide 30 H Anion Gap 10 L BUN 25 H Creatinine 1.06 Estimated GFR > 60 Fasting Glucose 124 H Estimat Average Glucose 140 Hemoglobin A1c % 6.5 H Calcium 9.5 Total Bilirubin 0.5 AST 17 ALT 14 Alkaline Phosphatase 69 Total Protein 7.6 Albumin 4.5 Triglycerides 171 H Cholesterol 221 H LDL Cholesterol, Calc 146 H HDL Cholesterol 41 25-OH Vitamin D Total 33.1 TSH 1.38 Urine Color Yellow Urine Appearance Clear Urine pH 5.5 Ur Specific [place] 1.020 Urine Protein Negative Urine Glucose (UA) Negative Urine Ketones Negative Urine Blood Negative Urine Nitrite Negative Ur Leukocyte Esterase Negative Coding Level of Care Code Est Pt Level 4 (40177) Diagnoses Type 2 diabetes mellitus with other specified complication, without long-term current use of insulin E11.69 Diabetes mellitus complication status: with other specified complication Diabetes mellitus care home insulin use: without care home use Diabetes mellitus type: type 2 Obesity (BMI 30.0-34.9) E66.811 Chronic GERD K21.9 Abdominal bloating R14.0 Hypertension, unspecified type I10 Hypertension type: unspecified Mixed hyperlipidemia E78.2 Hyperlipidemia type: mixed hyperlipidemia Time Spent (min) 36 Assessment & Plan Assessment & Plan (1) Diabetes mellitus: Code(s): E11.9 - Type 2 diabetes mellitus without complications Category: Medical Qualifiers: Diabetes mellitus complication status: with other specified complication Diabetes mellitus continuous churn buttermaker insulin use: without continuous churn buttermaker use Diabetes mellitus type: type 2 Qualified Code(s): E11.69 - Type 2 diabetes mellitus with other specified complication Plan: A1c 6.5% decreased from 7% Reinforced low sugar diet/carbohydrate Continue glipizide 5 mg daily We will recheck fasting glucose and A1c in 3 months (2) Obesity (BMI 30.0-34.9): Code(s): E66.811 - Obesity, class 1 Category: Medical Plan: Encouraged to exercise for at least 30 minutes a day/5 days a week Healthy eating discussed. Encouraged to eat fruits/vegetables, protein- fish/baked chicken, and to avoid salty/fried foods, sweets, caffeine and carbohydrates. Encouraged to increase water intake 6-8 glasses a day (3) Chronic GERD: Code(s): K21.9 - Gastro-esophageal reflux disease without esophagitis Category: Medical Plan: Do not eat meals or drink carbonated beverages within 3 hr of bedtime Decrease the amount of fried, fatty, and spicy foods to decrease gastric acid production Raise the head of the bed using 4 to 6-inch blocks, especially if nocturnal symptoms are present Lose weight if indicated; avoid tight-fitting clothing, especially around the waist Avoid foods that relax the Lower esophageal sphincter (chocolate, peppermint, high-fat foods etc.,) Continue omeprazole 40 mg daily (4) Abdominal bloating: Code(s): R14.0 - Abdominal distension (gaseous) Category: Medical Plan: Encouraged FODMAP diet (5) Hypertension: Code(s): I10 - Essential (primary) hypertension Category: Medical Qualifiers: Hypertension type: unspecified Qualified Code(s): I10 - Essential (primary) hypertension Plan: The patient stopped taking his valsartan 160 mg daily because this was dropping his heart rate too low and causing him to feel tired. On his previous visit he was taking valsartan 80 mg daily, however, his blood pressure was still elevated and this was increased to 160 mg. We will start the patient on amlodipine 10 mg daily and have the patient return in 4 weeks for a nurse visit to get his blood pressure checked. The no show to follow up blood pressure check. Blood pressure 144/72 today in office. The patient wants to continue to make dietary changes. He reports that he was at a democrat recently and he was not watching what he was eating. (6) HLD (hyperlipidemia): Code(s): E78.5 - Hyperlipidemia, unspecified Category: Medical Qualifiers: Hyperlipidemia type: mixed hyperlipidemia Qualified Code(s): E78.2 - Mixed hyperlipidemia Plan: Tri 171/total chol 221/ ldl 146/hdl 41. Discussed with the patient that his LDL increased from 115-146. He is currently not on any treatment. The patient would like to managed this without medication. Counseling was provided on reducing intake of fried foods, red meat, pork, dairy, and egg yolks. Recommended healthier cooking methods such as baking or boiling chicken and consuming egg whites only. If lifestyle modification is unsuccessful, medication will be considered. We will recheck lipid panel in 3 months Orders: Orders Complete Blood Count Auto Diff 3 Months E11.69 - Type 2 diabetes mellitus with other specified complication, E66.811 - Obesity, class 1, I10 - Essential (primary) hypertension, K21.9 - Gastro-esophageal reflux disease without esophagitis, N40.0 - Benign prostatic hyperplasia without lower urinary tract symptoms, T46.4X5A - Adverse effect of zmrcjshgdrl-twylozjchm-seccio inhibitors, initial encounter, T78.3XXA - Angioneurotic edema, initial encounter Comprehensive [place]. Panel Fast 3 Months E11.69 - Type 2 diabetes mellitus with other specified complication, E66.811 - Obesity, class 1, I10 - Essential (primary) hypertension, K21.9 - Gastro-esophageal reflux disease without esophagitis, N40.0 - Benign prostatic hyperplasia without lower urinary tract symptoms, T46.4X5A - Adverse effect of ugrvfkioapk-wsobnofcyb-skrjst inhibitors, initial encounter, T78.3XXA - Angioneurotic edema, initial encounter Lipid Panel 3 Months . - Type 2 diabetes mellitus with other specified complication, E66.811 - Obesity, class 1, I10 - Essential (primary) hypertension, K21.9 - Gastro-esophageal reflux disease without esophagitis, N40 .0 - Benign prostatic hyperplasia without lower urinary tract symptoms, T46.4X5A - Adverse effect of abdrjsrxizu-shevfgrucv-fmdtxr inhibitors, initial encounter, T78.3XXA - Angioneurotic edema, initial encounter TSH reflex Free T4 3 Months E11. - Type 2 diabetes mellitus with other specified complication, E66.811 - Obesity, class 1, I10 - Essential (primary) hypertension, K21.9 - Gastro-esophageal reflux disease without esophagitis, N40.0 - Benign prostatic hyperplasia without lower urinary tract symptoms, T46.4X5A - Adverse effect of gccvhgxthrm-ombjxjdpss-jeyodi inhibitors, initial encounter, T78.3XXA - Angioneurotic edema, initial encounter Vitamin D 25-OH Total 3 Months E11. - Type 2 diabetes mellitus with other specified complication, E66.811 - Obesity, class 1, I10 - Essential (primary) hypertension, K21.9 - Gastro-esophageal reflux disease without esophagitis, N40.0 - Benign prostatic hyperplasia without lower urinary tract symptoms, T46.4X5A - Adverse effect of rcnwetdvxzq-hghtjyxzxg-nbdhhr inhibitors, initial encounter, T78.3XXA - Angioneurotic edema, initial encounter Hemoglobin A1c 3 Months E11. - Type 2 diabetes mellitus with other specified complication, E66.811 - Obesity, class 1, I10 - Essential (primary) hypertension, K21.9 - Gastro-esophageal reflux disease without esophagitis, N40.0 - Benign prostatic hyperplasia without lower urinary tract symptoms, T46.4X5A - Adverse effect of deqlujcxiht-fugqmcyhiy-lfmmdg inhibitors, initial encounter, T78.3XXA - Angioneurotic edema, initial encounter UA CC w/rflx Micro + Cult 3 Months E11.69 - Type 2 diabetes mellitus with other specified complication, E66.811 - Obesity, class 1, I10 - Essential (primary) hypertension, K21.9 - Gastro-esophageal reflux disease without esophagitis, N40.0 - Benign prostatic hyperplasia without lower urinary tract symptoms, T46.4X5A - Adverse effect of xiovbwaivgf-wbapjbnsrl-fgaqll inhibitors, initial encounter, T78.3XXA - Angioneurotic edema, initial encounter Medications: New amlodipine 10 mg PO DAILY 90 tabs 3RF Refilled cholecalciferol (vitamin D3) 50 mcg PO DAILY 90 caps 3RF
--- OUTSIDE RECORDS SUMMARY | 2025-09-20 12:18 | XMS_ITS | Data Portability ---
Author Organization [place] [employer] [facility], [facility] Address [address] [place] [phone] Care Team Providers Care Group Exercise Instructor Name Role Phone HIM CCA OTHER Assessment Encounter Date Assessment Date Assessment LastModified by Organization Details LastModified Time 06/18/2025 06/18/2025 I provided real -time medical direction via phone for this encounter, and was available for additional phone based assistance as needed. I have reviewed and agree with the Assessment and Plan as documented by the Adjunct Spanish Instructor. We discussed the diagnostic uncertainty of home visits and the risk associated with this. In this case the patient and I felt this to be an acceptable and reasonable amount of risk given the benefit of avoiding an ED visit. The patient given the opportunity to ask questions. Advised if develops CP/severe SOB/turning blue/uncontrolle d n/v/d /severe headache/acute visual changes AMS/ syncope/ hi fever unresponsive to APAP to call 911- verbalized understanding of instruction [email or web address] Not available 06/18/2025 19:34:38 Plan of Treatment Reminders Order Date Submit Date Provider Last Modified By Organization Details Last Modified Time Details Appointments None recorded. Lab rapid SARS CoV 2 Ag, QL IA, respiratory specimen 2024 025 [email or web address] 0 [facility], [address] [place] [address], [id number] 15:23:48 rapid flu (A+B) [address], [address] 21:03:13 rapid SARS CoV 2 Ag, QL IA, respiratory specimen [address], [address] 21:03:33 Referral None recorded. Procedures None recorded. Surgeries None recorded. Imaging None recorded. Medication Orders ibuprofen 400 mg tablet 2024 025 [id number], [address] [place], [address], 5 05:02:11 ibuprofen 400 mg tablet 2024 025 [facility], [address] [place], [address], 5 05:02:11 amoxicillin 875 mg-potassiu m clavulanate 125 mg tablet 2024 025 [facility], [address] [place], [address], 5 05:01:13 amoxicillin 500 mg-potassiu m clavulanate 125 mg tablet 2024 025 [email or web address] 0 [facility] [address] [place], [address], 5 15:23:45 Allergy Relief (fluticason e) 50 mcg/actuati on nasal spray,suspe nsion 2024 025 [facility], [address] [place], [address], 5 15:23:50 Saline Mist 0.65 % nasal spray aerosol 2024 025 [facility], [address] [place], [address], 5 15:23:49 ciprofloxac in 0.3 % eye drops 2024 025 [facility], [address] [place], [address], 5 15:23:50 amoxicillin 875 mg-potassiu m clavulanate 125 mg tablet 2024 025 [facility], [address] [place], [address], 5 05:01:13 Flonase Allergy Relief 50 mcg/actuati on nasal spray,suspe nsion 2024 025 [facility], [address] [place], [address], 5 16:16:41 Lactobacill us acidoph-L.b ulgaricus 1 million cell chewable tablet 2024 025 [facility], [address] [place], [address], 5 16:16:40 Patient TargetsNo targets recorded. Patient InstructionsNo instructions recorded. Reason for Referral None Reported. Results Created Date Observation Date Name Description Value Unit Range Abnormal Flag Note LastModifiedBy Organization Detail LastModifiedTime 06/18/2006/18/2025 rapid SARS CoV 2 Ag, QL IA, respi rator y speci men rapid SARS CoV 2 Ag, QL IA, respiratory specimen negati ve Not Available Main-[address], [address] 06/18/2025 15:23:36 Result Notes None recorded. Medical Equipment None Reported. Allergies Allergen ID Allergen Name Allergen Category Reaction Reaction Severity Criticality Documentation Date Start Date Code Code System Note Provider Name and Address Organization Details Recorded Time 93676 Bactrim medicatio n Not available Not available Not available 03/02/2025 51243 9 RxNorm Not Available [facility] - production 12:22:12 13037 morphine medicatio n Not available Not available Not available 03/02/2025 7052 RxNorm Not Available [facility] - production 12:22:12 Medications Name Sig Start Date Stop Date Status Note LastModified by Organization Details LastModified Time doxycycline hyclate 100 mg capsule TAKE 1 CAPSULE ORALLY 2 TIMES A DAY FOR 10 DAYS active Not Available Not Available No t Available sucralfate 1 gram tablet TAKE 1 TABLET BY MOUTH EVERY DAY BEFORE MEALS active Not Available Not Available No t Available FreeStyle Lancets 28 gauge USE DIRECTED ONCE A DAY active Not Available Not Available No t Available famotidine 40 mg tablet TAKE 1 TABLET ORALLY AT BEDTIME active Not Available Not Available No t Available prednisone 20 mg tablet TAKE 2 TABLETS BY MOUTH EVERY DAY FOR 5 DAYS active Not Available Not Available No t Available valsartan 80 mg tablet TAKE 1 TABLET BY MOUTH EVERY DAY active Not Available Not Available No t Available omeprazole 40 mg capsule,del ayed release TAKE 1 CAPSULE BY MOUTH DAILY active Not Available Not Available No t Available leflunomide 20 mg tablet TAKE 1 TABLET BY MOUTH EVERY DAY active Not Available Not Available No t Available triamcinolo ne acetonide 0.1 % topical cream APPLY TO AFFECTED AREA TWICE A DAY active Not Available Not Available No t Available metoclopram yajaira 5 mg tablet TAKE 1 TABLET BY MOUTH 4 TIMES A DAY WITH MEAL/BED active Not Available Not Available No t Available methocarbam ol 750 mg tablet TAKE 1 TABLET BY MOUTH EVERY 8 HOURS NEEDED FOR MUSCLE SPASM active Not Available Not Available No t Available ciprofloxac in 0.3 % eye drops INSTILL 1 DROP INTO BOTH EYES 4 TIMES A DAY FOR 1 WEEK active Not Available Not Available No t Available amlodipine 10 mg tablet TAKE 1 TABLET BY MOUTH [...] Not Available Not Available No t Available pantoprazol e 40 mg tablet,radha yed release TAKE 1 TABLET BY MOUTH DAILY active Not Available Not Available No t Available ibuprofen 400 mg tablet Take 1 tablet 4 times a day by oral route as needed for 5 days. 08/26 completed Not Available Not Available Not Available Gas Relief Extra Strength 125 mg capsule TAKE 1 CAP BY MOUTH 2 TO 4 TIMES A DAY NEEDED FOR ABDOMINAL DISTENTIO N active Not Available Not Available No t Available omeprazole 20 mg capsule,del ayed release TAKE 1 CAPSULE BY MOUTH DAILY active Not Available Not Available No t Available amoxicillin 250 mg capsule TAKE 4 CAPS BY MOUTH EVERY DAY active Not Available Not Available No t Available ibuprofen 600 mg tablet TAKE 1 TABLET BY MOUTH THREE TIMES A DAY NEEDED FOR PAIN active Not Available Not Available No t Available methylpredn isolone 4 mg tablets in a dose pack TAKE 6 TABLETS ON DAY 1 DIRECTED ON PACKAGE AND DECREASE BY 1 TAB EACH DAY FOR A TOTAL OF 6 DAYS active Not Available Not Available No t Available ketoconazol e 2 % topical cream APPLY TO FEET EXTERNALL Y TWICE A DAY 21 DAYS active Not Available Not Available No t Available fluticasone propionate 50 mcg/actuati on nasal spray,suspe nsion SPRAY 1 SPRAY INTO EACH NOSTRIL TWICE A DAY FOR 2 WEEKS active Not Available Not Available No t [...] Not Available Not Available No t Available metoclopram yajaira 10 mg tablet TAKE 1 TABLET ORALLY 4 TIMES A DAY BEFORE MEAL/BED active Not Available Not Available No t Available amoxicillin 875 mg-potassiu m clavulanate 125 mg tablet Take 1 tablet every 12 hours by oral route with meal(s) for 10 days. 07/05 completed Not Available Not Available Not Available simethicone 80 mg chewable tablet CHEW 1 TABLET BY MOUTH 3-4 TIMES DAILY NEEDED FOR GAS AFTER MEALS/AT BEDTIME active Not Available Not Available No t Available valsartan 160 mg tablet TAKE 1 TABLET BY MOUTH EVERY DAY active Not Available Not Available No t Available Laxative (bisacodyl) 5 mg tablet,radha yed release TAKE 2 TABLETS BY MOUTH EVERY DAY AT BEDTIME active Not Available Not Available No t Available Saline Nasal 0.65 % spray aerosol TAKE 2 SPRAYS EVERY 3 HOURS BY NASAL ROUTE DIRECTED. active Not Available Not Available No t Available Enbrel SureClick 50 mg/mL (1 mL) subcutaneou s pen injector active Not Available Not Available Not Available FreeStyle Lite Strips USE DIRECTED ONCE A DAY active Not Available Not Available No t Available cholecalcif guillermo (vitamin D3) 50 mcg (2,000 unit) capsule TAKE 1 CAPSULE BY MOUTH EVERY DAY active Not Available Not Available No t Available Lactobacill us acidoph-L.b ulgaricus 1 million cell chewable tablet Take 1 tablet twice a day by oral route for 20 days. 2024 active Not Available Not Available Not Avai lable Floranex 1 million cell tablet TAKE 1 TABLET BY MOUTH TWICE A DAY FOR 20 DAYS active Not Available Not Available No t Available Linzess 290 mcg capsule PLEASE SEE ATTACHED FOR DETAILED DIRECTION S active Not Available Not Available No t Available OneTouch Ultra2 Meter USE TO TEST ONCE DAILY active Not Available Not Available No t Available OneTouch UltraSoft 2 Lancet 30 gauge USE TO TEST ONCE DAILY active Not Available Not Available No t Available Vitals Date Recorded Oxygen saturation Oxygen saturation in Arterial blood by Pulse oximetry Heart rate Body temperature Respiratory rate Systolic And Diastolic Provider Name and Address Organization Details Last Updated DateTime 5 96 % 96 % 60 /min 98.8 [degF] 18 /min 156/88 mm[Hg] Not Available [facility] - production 16:09:34 Date Recorded Heart rate Body temperature Respiratory rate Oxygen saturation Oxygen saturation in Arterial blood by Pulse oximetry Systolic And Diastolic Provider Name and Address Organization Details Last Updated DateTime 5 60 /min 98.9 [degF] 16 /min 98 % 98 % 146/78 mm[Hg] Not Available [facility] production 15:11:36 Date Recorded Heart rate Body temperature Respiratory rate Oxygen saturation Oxygen saturation in Arterial blood by Pulse oximetry Systolic And Diastolic Provider Name and Address Organization Details Last Updated DateTime 5 68 /min 97.9 [degF] 18 /min 99 % 99 % 142/88 mm[Hg] Not Available [facility] - production 16:57:24 Social History None recorded. Functional Status None recorded. Mental Status None recorded. Family History Nothing Reported. Medical History No medical history recorded. Past Encounters Encounter ID Performer Location Encounter Start Date Encounter Closed Date Diagnosis/Indication Diagnosis SNOMED-CT Code Diagnosis ICD10 Code Diagnosis IMO Codes Diagnosis Note [id number] RENEA ELLIS MD [facility] [address] [place] [phone] 03/02/2025 16:09:33 03/04/2025 14:41:33 Recurrent acute frontal sinusitis [id number] J01.11 [id number] Evaluation in the field was performed by my hat blocker colleague, as noted above, I provided real-time [...] weeks ago, for which he presented to [facility] ER and was prescribed doxycyclin e, which he completed on 02/18.The patient reports headache, fatigue, pressure under the eyes, sinus congestion , yellow nasal discharge, and discharge from both eyes upon waking in the morning. He denies fever, chills, chest pain, or shortness of breath. Vitals: Blood Pressure: 156/88 , Heart Rate: 60 , Respirator y Rate: 18SpO2: 96%, Temperatur e: 98.8 FPhysical Examinatio n:The patient is alert and oriented, in no apparent distress.N o facial swelling or erythema noted.Tend erness to palpation over the frontal sinuses; the patient also reports pain behind the eyes.Lungs clear to auscultati on bilaterall y.No lower extremity edema.COVI D-19 and influenza tests are negative.A llergies: Reviewed Impression :Recurrent sinusitis, likely chronic in [...] severe or worsening headache,a high-grade fever (> 102 F) that persists despite antibiotic therapy, blurred vision, [...] severe or worsening headache,a high-grade fever (> 102 F) that persists despite antibiotic therapy, blurred vision, double vision, or pain with eye movement, swelling around the eyes or face, confusion, lethargy, or other signs of altered mental status, severe facial pain, dental pain, neck stiffness. [id number] Sharita Osborne MD [facility] [address] [phone] 06/18/2025 15:11:32 06/18/2025 21:17:45 Recurrent acute pansinusitis [id number] J01.41 [id number] Allergies and pharmacy reviewed. /Patient made aware COVID negative medic only has Augmentin 500mg will give a dose now and patient reports he can get to pharmacy later/advi sed to take full dose Augmentin with some food at bedtime tonight and then do breakfast and dinner starting tomorrow. He verbalized understand ing Suggested warm compresses for symptomati c relief Bacterial conjunctivitis [id number] H10.9 58351 Given the complaint of lid margin crusting and yellow discharge in the morning we will treat with ABX.-Patie nt cannot do trimethopr im or sulfa/eryt hromycin ointment is annoying during the day as it clouds the vision so I have prescribed ciprofloxa ashish eyedrops [id number] Sarah Solomon MD [facility] [address] [phone] 08/14/2025 16:57:13 08/14/2025 18:58:25 Bursitis of olecranon of right elbow [id number] 33514 M70.21 [id number] Health Concerns Section Related Observation LastModified by Organization Claus knox LastModified Time None Recorded Concern Status LastModified by Organization Details LastModified Time None Recorded Advance Directives Directive None Recorded Payers Insurance Date Sequence Insurance Name Policy Number Policy Hernandez Covered Member ID Hernandez Member ID Guarantor Name 08/14/2025 1 [facility] - DOS ON OR AFTER 2023 - DUAL ELIGIBLE - [employer] AND ONE [employer] (MEDICARE REPLACEMENT/ADV ANTAGE - HMO) Angel Gary [id number] Angel Gary Notes Date Note Type Note Provider Name and Address Organization Details Recorded Time 03/02/2025 text/html ROS as noted in the [facility] Nurse Triage Notes (Josué Woods): Reason For Request: Pt reporting a suspected sinus infection>went to [facility] 3 weeks ago>still experiencing undereye pain>under nose pressure>headache>fati samia Denies: Sudden onset of dental pain, unable to manage own secretions Nosebleed lasting longer than one hour; unable to stop bleeding Throat swelling/difficult swallowing Chief Complaints: Headache, Common Cold PMH: Gastroesophageal Reflux Disease (GERD), Diabetes Mellitus Type 2, Hypertension PMH Reviewed at 03/02/2025 - : Allergies Reviewed at 03/02/2025 - : Comments: Additional PMH: Chronic Sinusitis Women'S Apparel Salesperson verified the patient's name//address and phone number. Pt calling reporting headache, fatigue, pressure under eyes and sinus congestion. Pt reports he went to [facility] ER approx 3 weeks ago and was started on antibiotics, but pt reports no improvement in symptoms with antibiotics. Pt reports hx of frequent sinus infections. Pt also reporting photophobia with headaches and dizziness, pt denies vision changes. Education provided on the response time and the patient was advised to monitor reported s/s and seek emergency treatment if needed -Paresh Woods RN Adjunct Spanish Instructor Organization Information for [employer] Business Legal Name: [employer]. Address: [address] [place] [address], Retail Assistant: Tab Jimenez MD CLIA No.: [id number] Adjunct Spanish Instructor POC Test Results from [employer] [facility] [employer] Rapid COVID antigen (16:09:00) COVID: - Attachments uploaded as part of this test result can be found under Documents section. Rapid influenza antigen (16:09:01) Flu: - Attachments uploaded as part of this test result can be found under Documents section. ...................... ...................... ...................... ...................... ...................... ...................... ......... Adjunct Spanish Instructor Note From [facility]: Encountered patient conscious alert and ambulatory. Patient reports he suffers from chronic sinus infections and was seen at [facility] on 02/11/25. Patient states he completed a course of doxycycline prescribed to him by the emergency room physician on 02/18/25. Patient expresses he experienced no relief with the medication but denies recent fevers, nausea or vomiting. Covid and flu swabs performed, both resulted negative; [facility] notified. Skin warm, dry and of appropriate color for ethnicity. Head and neck free of trauma and edema. JVD. Breath sounds present clear and equal bilaterally. Abdomen is soft, nontender and non-distended. Extremities, free of trauma and edema. [facility] contacted: states they will write prescription prescriptions for antibiotics and nasal spray at patient s request to be sent to patient s pharmacy of choice. [facility] additionally encourages patient to follow up with an clear coat sprayer as soon as possible. Patient verbalizes understanding of the plan and is comfortable with remaining at home at this time. [facility] Lab Orders: rapid flu (A+B): Performed rapid SARS CoV 2 Ag, QL IA, respiratory specimen: Performed ...................... ...................... ...................... ...................... ...................... ...................... ......... [facility] Consulted: Renea Ellis ...................... ...................... ...................... ...................... ...................... ...................... ......... Disposition: Aleksandr ELLIS MD [address], [place], [address], [employer] 03/02/2025 16:31:32 06/18/2025 text/html ROS as noted in the [facility] Nurse Triage Notes (Nicole Eden): Reason For Request: sinus infection Patient Reports: Sinus infectionDenies: Sudden onset of dental pain, unable to manage own secretions Nosebleed lasting longer than one hour; unable to stop bleeding Throat swelling/difficult swallowing Dental pain and fever, able to maintain secretions Conjunctivitis External Ear concerns Chief Complaints: Common ColdPMH: Gastroesophageal Reflux Disease (GERD), Diabetes Mellitus Type 2, HypertensionPMH Reviewed at 06/18/2025:24Allergies Reviewed at 06/18/2025:Comments: 50 y.o male complains of Common Cold Pain under eyes and ontop of eyebrowsMild dizzinessEye drainageDenies feverNo sick contactYellow drainage from nose at times I provided information on the mobile health provider response time and advised the patient and/or caregiver to monitor reported signs and symptoms. I discussed the warning signs of when to seek emergency care. Adjunct Spanish Instructor Organization Information for Mark Sahu Bill Legal Name: [employer]. A ddress: [address] [place] [address], Medical Director: Tab BOWENAlda No.: [id number] Adjunct Spanish Instructor POC Test Results from Mark Sahu NORBERTO Rapid COVID antigen (15:07:48)COVID: - ...................... ...................... ...................... ...................... ...................... ...................... ......... Adjunct Spanish Instructor Note From Mark Sahu: Dispatched to the call address for the [...] on bottom eye lids for 4 days now. He endorses a 100.8 fever the other [...] was assessed. Rapid Covid test conducted. vitals. [facility] consulted. Pt given Augmentin. Script called into preferred pharmacy. Red flags discussed. ALL times are approx. [facility] Lab Orders: rapid SARS CoV 2 Ag, QL IA, respiratory specimen: Administered [facility] Medication Orders: amoxicillin 500 mg-potassium clavulanate 125 mg tablet: Administered ...................... ...................... ...................... ...................... ...................... ...................... ......... [facility] Consulted: Sharita Osborne ...................... ...................... ...................... ...................... ...................... ...................... ......... Disposition: Fulfilled SEGMD: As above- denies visual changes/ feelslike usual sinus infection-had Augmentin and Flonase last time which helped Sharita Osborne MD [address] [place] [address],[address], [place], [address], ISAÍAS - [employer] 06/18/2025 19:37:33 08/14/2025 text/html HPI: Chris is a 50 yo male with hx of but not all inclusive of GERD, presence of left hip joint, learning disability, vertigo, MDD, DM2, Obesity, PHTN, chronic pain syndrome, gout, LT use of systemic steroids, osteochondrosis, PTSSD, MICHAEL, RA, olecranon bursitis of left elbow, and functional dyspepsia. Allergies to Bactrim and Morphine Sulfate. Mbr calling in from number [phone] reporting he was in the hospital and released yesterday for left elbow swelling and pain. Joelr stated they gave him a shot for the pain and sent him home and instructed him to call his PCP to order Ibuprofen. Mbr stated they took xrays and diagnosed him with bursitis. Mbr stated it is still very painful and he has not been able to get through to his Provider. Offered [facility] and Mbr agrees. Confirmed address and phone/[phone]. Mbr denies chest pain, fever, sob or any open areas or drainage from left elbow. Mbr states left elbow is larger than the right elbow and is painful. Mbr did not report any other s/s. Placed [facility] referral in on Mbr's behalf. Alerted CC via GC activity. ...................... ...................... ...................... ...................... ...................... ...................... ......... [facility] Nurse Triage Notes (Michelle Velasquez): Reason For Request: pain and swelling Chief Complaints: Extremity Pain, Extremity Swelling PMH: Gastroesophageal Reflux Disease (GERD), Diabetes Mellitus Type 2, Hypertension, Depression, Obesity, Chronic Pain, Anxiety Disorder, Rheumatoid Arthritis, Post-Traumatic Stress Disorder (PTSD) PMH Reviewed at 08/14/2025 15:29 Allergies Reviewed at 08/14/2025 15:29 Comments: HPI reviewed ...................... ...................... ...................... ...................... ...................... ...................... ......... Adjunct Spanish Instructor Note From [facility]: Encountered patient conscious, alert and ambulatory. Patient reports he has been experiencing left elbow swelling and pain; was seen at a local emergency room where he underwent x-rays and was diagnosed with O lecranon Bursitis. Patient reports his instructions were to contact his primary care office for an ibuprofen prescription today but he has not been able to get through to the office despite making multiple calls. Patient requests a dose of ibuprofen and a prescription to follow. Patient denies chest pain, shortness of breath and fevers. Skin warm, dry and of appropriate color for ethnicity. Head and neck, free of trauma and edema. -JVD. Breath sounds present, clear and equal bilaterally. Abdomen is soft, non-tender and non-distended. Left elbow inflamed and tender to the touch but patient exhibits full range of motion. Remainder of extremities free of trauma and edema; peripheral pulses present throughout. [facility] contacted: 400mg PO Ibuprofen administered after medication rights were reconciled with patient. [facility] states they will send a prescription for further treatment to a pharmacy of patients choice. Patient was encouraged to monitor himself for chest pain, shortness of breath, fevers or worsening pain and was encouraged to seek further medical attention, including 911, if said symptoms were to develop. Patient verbalizes understanding of the plan and states he is comfortable remaining home today. [facility] Medication Orders: ibuprofen 400 mg tablet: Administered ...................... ...................... ...................... ...................... ...................... ...................... ......... [facility] Consulted: Sarah Solomon ...................... ...................... ...................... ...................... ...................... ...................... ......... Disposition: Fulfilled Sarah Solomon MD [address], [place], [id number], KEVIN DUNAWAY 08/14/2025 18:47:21
--- OUTSIDE RECORDS SUMMARY | 2025-09-20 12:18 | XMS_ITS | Continuity of Care Document ---
Author Name [facility], Medical Address [address] [place] [id number] Organization Unknown Address [address] [place] [id number] Medications No known medications Problems No known problems
--- OUTSIDE RECORDS SUMMARY | 2025-09-20 12:18 | XMS_ITS | Encounter Summary ---
Author Organization [facility] Address [address] [place] [address] Encounters * CPT with Medical [facility] at [facility] on 2025-08-14 Mbr is a 50 yo male with hx of but not all inclusive of GERD, presence of left hip joint, learning disability, vertigo, MDD, DM2, Obesity, PHTN, chronic pain syndrome, gout, LT use of systemic steroids, osteochondrosis, PTSSD, MICHAEL, RA, olecranon bursitis of left elbow, and functional dyspepsia. Allergies to Bactrim and Morphine Sulfate. Mbr calling in from number [phone] reporting he was in the hospital and released yesterday for left elbow swelling and pain. Mbr stated they gave him a shot for the pain and sent him home and instructed him to call his PCP to order Ibuprofen. Mbr stated they took xrays and diagnosed him with bursitis. Mbr stated it is still very painful and he has not been able to get through to his Provider. Offered [facility] and Mbr agrees. Confirmed address and phone/[phone]. Mbr denies chest pain, fever, sob or any open areas or drainage from left elbow. Mbr states left elbow is larger than the right elbow and is painful. Mbr did not report any other s/s. Placed [facility] referral in on Mbr's behalf. Alerted CC via GC activity. { reasonForRequest : pain and swelling , patientReports : , denies :[], chiefComplaints : Extremity Pain, Extremity Swelling ,&q uot;pmh : Gastroesophageal Reflux Disease (GERD), Diabetes Mellitus Type 2, Hypertension,Depression, Obesity, Chronic Pain, Anxiety Disorder, Rheumatoid Arthritis, Post-Traumatic Stress Disorder (PTSD) , allergies : Bactrim, Morphine , otherAllergies :nu ll, painAssessment : , visitOutcome : , additionalComments : HPI reviewed } Encountered patient conscious, alert and ambulatory. Patient reports he has been experiencing left elbow swelling and pain; was seen at a local emergency room where he underwent x-rays and was diagnosed with ???Olecranon Bursitis.??? Patient reports his instructions were to contact his primary careoffice for an ibuprofen prescription today but he [...] trauma and edema; peripheral pulses present throughout. [facility] [place]: 400mg PO Ibuprofen administered after medication rights were reconciled with patient. [facility] [place] they will send a prescription for further treatment to a pharmacy of patients choice. Patient was encouraged to monitor himself for chest pain, shortness of breath, fevers or worsening pain and was encouraged to seek further medical attention, including 911, if said symptoms were to develop. Patient verbalizes understanding of the plan and states he is comfortable remaining home today. IV_(FLUIDS_AND/OR_MEDICATION), MEDICATION_IM, ORAL_MEDICATION, WOUND_CARE, ORTHOSTATIC_VITAL_SIGNS Written by Medical [facility] on 2025-08-14
== END 2025-09-20 11:07 | disposition home or self-care (01) ==
LOC: HO.HMCH 10:25
DX: E11.69 Type 2 diabetes mellitus with other specified complication (principal); E66.811 Obesity, class 1; Z68.30 Body mass index [BMI] 30.0-30.9, adult; K21.9 Gastro-esophageal reflux disease without esophagitis; R14.0 Abdominal distension (gaseous); I10 Essential (primary) hypertension; E78.2 Mixed hyperlipidemia

== ENCOUNTER → 2025-09-20 10:24 | Outpatient (BNVA) | payer OTHER, SELFPAY | DX: E66.811 Obesity, class 1 (principal); E11.69 Type 2 diabetes mellitus with other specified complication; I10 Essential (primary) hypertension; K21.9 Gastro-esophageal reflux disease without esophagitis; R14.0 Abdominal distension (gaseous); E78.2 Mixed hyperlipidemia; Z68.30 Body mass index [BMI] 30.0-30.9, adult | CPT/HCPCS: 99212 ==

== ENCOUNTER 2025-10-01 13:39 | Outpatient (AMB) | payer OTHER, SELFPAY ==
--- OUTSIDE RECORDS SUMMARY | 2024-07-04 05:30 | XMS_ITS ---
Author Organization [facility] Address [address] [place] [address] Care Team Providers Care Software Test Analyst Name Role Phone Da Eckert MD Primary Care Provider Xavier Rueda Unavailable [phone] REASON FOR VISIT gerd, abdominal bloating Problems Problem Type SNOMED Code ICD Code Onset Dates Problem Status W/U Status Risk Notes Problem Gastroesophageal reflux disease without esophagitis (725204021) Gastroesophageal reflux disease without esophagitis (K21.9) Active confirmed Encounters Encounter Location Date Provider Diagnosis [facility] Outpatient [address] [place], [place] [id number] 07/04/2024 Xavier Nam Gastroesophageal ref lux disease without esophagitis K21.9 and Hiatal hernia K44.9 Assessments Encounter Date Diagnosis (ICD Code) Assessment Notes Treatment Notes Treatment Clinical Notes Section Notes 07/04/2024 Gastroesophageal reflux disease without esophagitis (ICD-10 - K21.9) 07/04/2024 Hiatal hernia (ICD-10 - K44.9) Plan Of Treatment No Information Progress Notes * MARI ABRAHAMDOB:1974 (50 yo M)Acc No.[id number]:07/04/2024 EGD/MAC Patient: Fox MAINORAlda PALMERMENDOZAMARI MCDONALD Provider: Jeanne Nam MD :1975 A ge:49 Y S ex:Male Date:07/04/2024 Address:[address] [place] [address] [address], [id number] Pcp:Da Eckert MD Subjective: * Chief Complaints: * G erd, abdominal bloating Assessment: * Assessment: 1. G astroesophageal reflux disease without esophagitis - K21.9 (Primary) 2 .?Hiatal hernia - K44.9 Plan: * Procedure Codes: 4 3239 UPPER GI ENDOSCOPY, BIOPSY Billing Information: * Procedure Codes: 28353 UPPER GI ENDOSCOPY, BIOPSY. * The named appointment provid er may or may not be the originator of this progress note, and it is not deemed complete until electronically signed by the appointment provider. Sign off status: Pending * Provider: Jeanne Nam MD Date: 0 07/04/2024 Generated for Rony diop/Jon/eTransmitting on: 12/02/2024 07:14 AM EST
--- OUTSIDE RECORDS SUMMARY | 2024-12-20 05:00 | XMS_ITS ---
Author Organization [facility] Address [address] [place] [id number] Care Team Providers Care Fly Setter Name Role Phone Dipika Pathak Unavailable [phone] Juwan Szymanski Unavailable [phone] Encounters Encounter Location Date Provider Diagnosis [address] [id number] 12/20/2024 Juwan Szymanski Plan Of Treatment Next Appt Details Provider Name:Dipika Marydenys liyah, 01/09/2026 09:00:00 AM, [address] [place], [id number], Progress Notes * Angel GARYDOB:1975 ([age] yo M)Acc No.[id number]:12/20/2024 Progress Note Patient: Angel IRCHARDSON Provider: Liss Szymanski D.P.M. :1975 A ge:49 Y S ex:Male Date:12/20/2024 Address:[address] [place], [place] [id number] Subjective: * Chief Complaints: * * Medical History: Objective: * Vitals: Assessment: Plan: * Treatment: * Images: * The named appointment provid er may or may not be the originator of this progress note, and it is not deemed complete until electronically signed by the appointment provider. Sign off status: Pending * Provider: Liss Szymanski D.P.M. Date: 0 12/20/2024 Generated for Minali ng/Fatrevor/eTransmitting on: 12/02/2024 07:15 AM EST
--- OUTSIDE RECORDS SUMMARY | 2024-12-27 06:15 | XMS_ITS ---
Author Organization [facility] Address [address] [place] [phone] Care Team Providers Care Industrial Painter Name Role Phone Dipika Pathak Unavailable [phone] Juwan Szymanski Unavailable [phone] Encounters Encounter Location Date Provider Diagnosis [address] [phone] 12/27/2024 Juwan Szymanski Plan Of Treatment Next Appt Details Provider Name:Dipika Marydenys liyah, 01/09/2026 09:00:00 AM, [address] [place], [address], Progress Notes * Angel GARYDOB:1975 ([age] yo M)Acc No.[id number]:12/27/2024 Progress Note Patient: Angel RICHARDSON Provider: Liss Szymanski D.P.M. :1975 A ge:49 Y S ex:Male Date:12/27/2024 Address:[address] [place], [place] [id number] Subjective: * Chief Complaints: * * Medical History: Objective: * Vitals: Assessment: Plan: * Treatment: * Images: * The named appointment provid er may or may not be the originator of this progress note, and it is not deemed complete until electronically signed by the appointment provider. Sign off status: Pending * Provider: Liss Szymanski D.P.M. Date: 0 12/27/2024 Generated for Minali ng/Fatrevor/eTransmitting on: 12/02/2024 07:15 AM EST
--- OUTSIDE RECORDS SUMMARY | 2025-09-04 04:00 | XMS_ITS ---
Author Organization [facility] Address [address] [place] [address] Care Team Providers Care Java Application Engineer Name Role Phone Dipika Pathak Unavailable [phone] Allergies Allergen (clinical drug ingredient) Drug/Non Drug Allergy documented on EMR Reaction Allergy Type Onset Date Status benztropine Benztropine Mesylate Unknown Drug Allergy Active fish oils Fish Oil Unknown Drug Allergy Active morphine Morphine Unknown Drug Allergy Active Medications Medication SIG (Take, Route, Fr equency, Duration) Notes Start Date End Date Status Ketoconazole 2 % to feet Externally T wice a day; Duration: 21 days Active Pantoprazole Sodium Active Valsartan [...] ast year? No Points 0 Interpretation Negative Encounters Encounter Location Date Provider Diagnosis [facility] [address] [place] [address] 09/04/2025 Dipika Pathak Plan Of Treatment Next Appt Details Provider Name:Dipika pelletier, 01/09/2026 09:00:00 AM, [address] [place], [address], Progress Notes * Angel GARYDOB:1975 ([age] yo M)Acc No.[id number]:09/04/2025 Progress Note Patient: Angel RICHARDSON Provider: Shea Pathak DPM :1975 A ge:50 Y S ex:Male Date:09/04/2025 Address:[address] [place], [place] [id number] Subjective: * Chief Complaints: * * HPI: A t Risk footcare: Pt States Last PCP Visit: D ate 0 03/06/2025 * ROS: G eneral/Constitutional: Nausea d enies. V omiting d enies. H bobbi Thirst d enies. L oss appetite d enies. C hills d enies. F atigue d enies.?Fever d enies. N ight Sweats d enies. U nexplained weight loss d enies. U nexplained weight gain d enies. H EENTM: Dentures d enies. D izziness d enies. G lasses/contacts d enies. R etinopathy d enies. B lurred/double vision d enies. T MJ?denies. D ischarge/drainage d enies. I mplants d enies. S ore throat d enies. D ental implants d enies. H lico of hearing d enies. D ifficulty chewing/swallowing/speaking d enies. N ose bleeds d enies. S ore mouth d enies. ? R espiratory: On Oxygen d enies. P neumonia/pleurisy d enies.?Bronchitis d enies. E mphysema d enies. C oughing d enies. C ough blood?denies. S hortness of breath d enies. W heezing d enies. C ardiovascular: Pacemaker d enies. M KNITTING TEACHER d enies. W PW d enies. C HF d enies. H eart attack d enies. S eptal defect d enies. R apid beat d enies. C hest pain d enies. A trial Fib. d enies. M urmur/Palpitations d enies. G astrointestinal: Hemorrhoids d enies. S tomach/Abdominal pain d enies. D ark blood stool d enies. I rritable bowel d enies. C onstipation d enies. D iarrhea d enies. H ematology: Swelling d enies. C lots d enies. V aricose Veins d enies. B ruising d enies. B leeding problem d enies. G enitourinary: Blood urine d enies. F requent/Painfu/urination/bladder control d enies. K idney stones d enies. I nfection (UTI) d enies. N ephropathy d enies. s ex trans dis (STD) d enies. P rostate d enies. M usculoskeletal: Hammertoes d enies. B unions d enies. B ack Pain d enies. M uscle Cramps/ Resting d enies. M uscle cramps / walking d enies.?Generalized aches and pains d enies. W eakness d enies. I nteg.: Eid d enies. S cars d enies. C orns/calluses?denies. I ngrown nails a dmits. P ainful nails a dmits. O pen Sores d enies. R ashes a dmits. N eurologic: Difficulty sleeping d enies. B rain disorder d enies. N umbness d enies. B alance trouble d enies. C onfusion d enies. F ainting/blackouts d enies. T ingling d enies. T remors d enies. * Medical History: D iverticulosis, High Blood Pressure, Reflux ( GERD), type II diabetes. * Surgical History: l eft hip replacement , hernia , hand . * Hospitalization/Major Diagno stic Procedure: D enies Past Hospitalization. * Family History: M other: , diagnosed with Other malignant neoplasm of unspecified site, Diabetic - NIDDM, Unspecified essential hypertension. F ather: . * Social History: T obacco Use: T obacco use other than smoking A re you an other tobacco user? N o Tobacco Control (Standard) T obacco use: N onsmoker A dditional Findings: Tobacco non-user C urrent nonsmoker D rugs/Alcohol: D rugs H ave you used drugs other than those for medical reasons in the past 12 months? N o M iscellaneous: C affeine: yes. Children: yes, 3. Exercise: yes, gym. Marital status: Single. Occupation: Unemployed, disabled. D rug/Alcohol: A HANNAH-C (Standard) D id you have a drink containing alcohol in the past year? N o P oints 0 I nterpretation N egative * Medications: T aking glipiZIDE , Taking Valsartan , Taking Pantoprazole Sodium , Taking Ketoconazole 2 % Cream to feet Externally Twice a day , Medication List reviewed and reconciled with the patient * Allergies: M orphine, Fish Oil, Benztropine Mesylate. Objective: * Vitals: * P ast Orders: L ab:HEMOGLOBIN A1C (GLYCOHEMOGLOBIN) (Order Date - 04/15/2025) (Collection Date & Time - 06/05/2025 09:29 AM) Value Reference Range HEMOGLOBIN A1C % (HH) 6.4 Assessment: Plan: * Treatment: * Images: * The named appointment provid er may or may not be the originator of this progress note, and it is not deemed complete until electronically signed by the appointment provider. Sign off status: Pending * Provider: Shea Pathak DPM Date: 1 Generated for Rony diop/Jon/Leo on: 12/02/2024 07:16 AM EST History and Physical Notes * HPI (History of Present Illness) Category Sub-Category Detail Notes Category Not es At Risk footcare Pt States Last PCP Visit: Date: 5
[2025-10-01 14:20] VITALS: BP 120/70; PULSE 53; RESP 18; O2SAT 98; BMI 29.9
--- NOTE | 2025-10-01 14:20 | MHC.PC.OV ---
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 Accompanied by: Self / Same As Patient Allergies lisinopril Allergy (Mild, Verified 10/01/25 14:47) Closed throat sulfamethoxazole (From Bactrim) Allergy (Mild, Verified 10/01/25 14:47) Rash trimethoprim (From Bactrim) Allergy (Mild, Verified 10/01/25 14:47) Rash fish derived (fish) Allergy (Unknown, Verified 10/01/25 14:47) Rash, Redness morphine (MORPHINE) Allergy (Unknown, Verified 10/01/25 14:47) Nausea and Vomiting Sulfa (Sulfonamide Antibiotics) Allergy (Unknown, Verified 10/01/25 14:47) rash Fish Containing Products Adverse Reaction (Unknown, Verified 10/01/25 14:47) Worsens Gout symptoms Medication List - Last Reconciled 10/01/25 by BIANCA Rice amlodipine 10 mg PO DAILY bisacodyl (Dulcolax (bisacodyl)) 10 mg (2 x 5 mg) PO BEDTIME blood sugar diagnostic (FreeStyle Lite Strips) As directed once a day blood-glucose meter (FreeStyle Lite Meter kit) As directed cholecalciferol (vitamin D3) 50 mcg PO DAILY fluticasone propionate 50 mcg/actuation intranasal glipizide 5 mg PO DAILY ibuprofen 600 mg PO Q6H PRN lancets (FreeStyle Lancets) As directed once a day omeprazole 40 mg PO DAILY pseudoephedrine sulfate ER 120 mg PO Q12H sodium chloride 0.65% (Saline Nasal) 2 sprays intranasal Q3H Tobacco use date assessed: 10/01/25 Dental Screening Dental Screen Date: 10/01/25 Did you have a dental visit in the last 12 months?: Yes Did you have a dental problem in the last 6 months where you did not have access to dental care?: No Was dental information given to patient?: Patient has dentist HPI follow up HPI Details 50-year-old male presented for HTN follow The patient stopped taking valsartan 160 mg because it was drop in his heart rate too low per patient. On his visit prior valsartan was increased from 80-160 mg due to elevated blood pressure. Blood pressure remained elevated but heart rate decreased. Amlodipine 10 mg was started and the patient was scheduled to return for follow up evaluation. Today the patient BP 140/82, reports that he knows what he is doing wrong and will fix this. He has not been strict on his salt intake per patient. He declines any new med change-he wants the opportunity to bring his blood pressure down by being stricter with his diet. He denies sob, chest pain, or dizziness, denies vision. The patient reports that he was born with murmur. No echo noted on file. Will order an echo to further evaluate his heart. [facility] Medical History Bursitis Physical exam Back pain Neck pain Possible exposure to STD Tendinitis of left elbow Rash Fibroma of skin Obesity Screening for prostate cancer Adult general medical exam Diabetes mellitus with coincident hypertension Gout Sinusitis History of cardiac murmur Avascular necrosis of bone of hip Chronic GERD Sinus infection Diabetes mellitus Dysuria Diabetes COVID-19 Chronic GERD Cough Surgical History History of surgery on right wrist History of esophagogastroduodenoscopy (EGD) H/O colonoscopy H/O total hip arthroplasty H/O wrist surgery History of umbilical hernia repair History of wisdom tooth extraction History of tonsillectomy Family History Father No problems noted. Mother Colon cancer Diabetes Hypertension Family/Other Diabetes Hypertension Social History Housing: Apartment Alcohol intake: current Alcohol intake frequency: holidays/special occasions only Patient Tobacco Use Status: Never used Tobacco Tobacco use type: Cigarette e-Cigarette/Vaping Use: Never Used Second Hand Smoke Exposure: Yes service: No Current occupational status: disabled Current occupational exposures/hazards: No Cognitive needs: No Hearing needs: No Vision needs: No Questionnaire PHQ-9 Over the last 2 weeks, how often have you been bothered by any of the following problems? Depression Screening Interpretation: Negative Depression Screening Done: Yes Source: Developed by Drs. Xavier Blackman, Gaurav Corrales and colleagues, with an educational dread from [employer] Thrive Questionnaire Date Thrive assessed: 03/20/25 I am a: Patient What is your living situation today?: I have a steady place to live Within the past 12 months, did the food you bought not last and you didn't have the money to get more?: Often true Within the past 12 months, did you worry whether your food would run out before you got money to buy more?: Often true Do you have trouble paying for medicines?: No Do you have trouble getting transportation to medical appointments?: No Do you have trouble paying your heating and electricity bill?: No Do you have trouble taking care of your child, family member or friend?: No Do you have trouble with day-to-day activities such as bathing, preparing meals, shopping, managing finances, etc.?: No Are you currently unemployed and looking for a job?: No Are you interested in more education?: No Please select the resources that you would like help with: None Currently or been in a relationship where the following occur: No concerns reported THRIVE Score: 2 MICHAEL-7 AMB Questionnaire MICHAEL-7 Date MICHAEL - 7 assessed: 06/20/25 Source: Developed by Drs. Xavier Blackman, Jossy Puente, Gaurav Ruano and colleagues, with an educational dread from [employer] Review of Systems Const Denies body aches, Denies chills, Denies fever(s), Denies headache(s) and Denies poor appetite Eyes Reports no additional complaints ENT Denies dysphagia, Denies dizziness, Denies headache(s) and Denies odynophagia Card Denies chest pain, Denies syncope, Denies edema, Denies irregular heart rhythm, Denies lightheadedness and Denies dyspnea Resp Denies cough and Denies dyspnea GI Denies abdominal pain, Reports bloating, Denies constipation, Denies dysphagia, Reports heartburn, Denies diarrhea, Denies nausea, Denies odynophagia and Denies vomiting Reports no additional complaints Musc Reports no additional complaints and Denies abnormal gait Skin/Breast Reports system reviewed and no additional complaints, except as documented Neuro Denies abnormal gait, Denies dizziness, Denies syncope and Denies headache(s) Psych Reports no additional complaints Physical exam (Primary Care) Vital Signs: Last Vital Signs Pulse 53 10/01/25 14:20 Resp 18 10/01/25 14:20 BP 120/70 10/01/25 14:20 Pulse Ox 98 10/01/25 14:20 Oxygen Delivery Method Room Air 10/01/25 14:20 BMI result Body Mass Index 29.9 Tobacco/Smoking Status: Tobacco use Status Tobacco use date assessed 10/01/25 10/01/25 14:28 Patient Tobacco Use Status Never used Tobacco 10/01/25 14:28 Tobacco use type Cigarette 10/01/25 14:28 e-Cigarette/Vaping Use Never Used 10/01/25 14:28 Depression Screening Interpretation: Negative Thrive Assessment: Date of Thrive Assessment Date Thrive assessed 03/20/25 10/01/25 14:28 Currently or been in a relationship where the following occur: No concerns reported Const General: cooperative, healthy appearing, comfortable and no acute distress Orientation/consciousness: patient oriented x3 HENMT Head: Yes normocephalic Ears: hearing grossly normal bilaterally General nose exam: Normal external nose present Eyes General: appearance normal, both eyes and all related structures Conjunctivae: conjunctivae normal Neck Neck: Yes full ROM and Yes no lymphadenopathy Resp Effort & Inspection: normal respiratory effort Auscultation: clear to auscultation bilaterally, no crackles, no rales, no rhonchi and no wheezes Cardio Rate: regular rate Rhythm: regular rhythm Heart sounds: S1 normal heart sound present, S2 normal heart sound present and no murmurs GI Inspection: Yes obesity Palpation (GI): Soft to palpation and nontender Auscultation: normal bowel sounds General: Yes no CVA tenderness Back/Spine/Pelvis Back: no CVA tenderness Skin General skin exam: no rashes or lesions noted Neuro General: patient oriented x3 Gait exam (Neuro): Normal gait present Extrem General: Yes normal to inspection, Yes full ROM and No edema Right upper extremity: full ROM Left upper extremity: full ROM Right lower extremity: full ROM; no edema Left lower extremity: full ROM; no edema Psych Affect: normal affect Attitude: cooperative Insight: Good insight present (Psych) Judgement: Good judgement present (Psych) Coding Level of Care Code Est Pt Level 3 (77525) Diagnoses Hypertension, unspecified type I10 Hypertension type: unspecified Bradycardia R00.1 Time Spent (min) 29 Assessment & Plan Assessment & Plan (1) Hypertension: Code(s): I10 - Essential (primary) hypertension Category: Medical Qualifiers: Hypertension type: unspecified Qualified Code(s): I10 - Essential (primary) hypertension Plan: bp 140/82-goal systolic less than 130 mmhg reinforced low salt diet continue amlodine 10 mg daily (2) Bradycardia: Code(s): R00.1 - Bradycardia, unspecified Category: Medical Plan: The patient has a baseline heart rate in the 40s, which is considered his normal (bradycardia). As the patient is asymptomatic, this is considered his baseline. An echocardiogram will be ordered to further evaluate heart function. The office will contact the patient to schedule the procedure, and results will be discussed at the next visit. Orders: Orders CA echo transthoracic complete Today I10 - Essential (primary) hypertension, R00.1 - Bradycardia, unspecified
--- OUTSIDE RECORDS SUMMARY | 2025-10-02 07:13 | XMS_ITS | Data Portability ---
Author Organization [facility], [facility] Address [address] [place] [id number] Care Team Providers Care Hand Ii Thermal Cutter Name Role Phone HIM CCA OTHER Assessment Encounter Date Assessment Date Assessment LastModified by Organization Details LastModified Time 06/18/2025 06/18/2025 I provided real -time medical direction via phone for this encounter, and was available for additional phone based assistance as needed. I have reviewed and agree with the Assessment and Plan as documented by the Stenographic Court Reporter. We discussed the diagnostic uncertainty of home [...] to call 911- verbalized understanding of instruction [email or web address] Not available 06/18/2025 19:34:38 Plan of Treatment Reminders Order Date Submit Date Provider Last Modified By Organization Details Last Modified Time Details Appointments None recorded. Lab rapid flu (A+B) 2024 025 [facility], [address] [place] [address], [id number] 14:19:56 rapid SARS CoV 2 Ag, QL IA, respiratory specimen 2024 025 [facility], [address] [place] [address], [id number] 14:19:57 rapid SARS CoV 2 Ag, QL IA, respiratory specimen 2024 025 [email or web address] 0 [facility], [address] [place] [address], [id number] 15:23:48 rapid flu (A+B) 2024 025 [facility], [address] [place] [address], [id number] 5 21:03:13 rapid SARS CoV 2 Ag, QL IA, respiratory specimen 2024 [facility], [address] [place] [address], [id number] 21:03:33 Referral None recorded. Procedures None recorded. Surgeries None recorded. Imaging None recorded. Medication Orders fluticasone propionate 50 mcg/actuati on nasal spray,suspe nsion 2024 025 [facility]acy #2071, [address] [place], [address], 5 13:44:01 pseudoephed rine ER 120 mg tablet,exte nded release 2024 025 [facility] [address] [place], [address], 5 13:44:01 ibuprofen 400 mg tablet 2024 025 [facility] [address] [place], [address], 5 05:02:11 ibuprofen 400 mg tablet 2024 025 [facility]/Pharmacy #2071, [address] [place], [address], 5 05:02:11 amoxicillin 875 mg-potassiu m clavulanate 125 mg tablet 2024 025 [facility]/Pharmacy #2071, [address] [place], [address], 5 05:01:13 amoxicillin 500 mg-potassiu m clavulanate 125 mg tablet 2024 025 [email or web address] 0 [facility]/Pharmacy #2071, [address] [place], [address], 5 15:23:45 Allergy Relief (fluticason e) 50 mcg/actuati on nasal spray,suspe nsion 2024 025 [facility] [address] [place], [address], 5 15:23:50 Saline Mist 0.65 % nasal spray aerosol 2024 025 [facility] [address] [place], [address], 5 15:23:49 ciprofloxac in 0.3 % eye drops 2024 025 [facility] [address] [place], [address], 5 15:23:50 amoxicillin 875 mg-potassiu m clavulanate 125 mg tablet 2024 025 [facility] [address] [place], [address], 5 05:01:13 Flonase Allergy Relief 50 mcg/actuati on nasal spray,suspe nsion 2024 025 [facility] [address] [place], [address], 5 16:16:41 Lactobacill us acidoph-L.b ulgaricus 1 million cell chewable tablet 2024 025 [facility] [address] [place], [address], 5 16:16:40 Patient TargetsNo targets recorded. Patient InstructionsNo instructions recorded. Reason for Referral None Reported. Results Created Date Observation Date Name Description Value Unit Range Abnormal Flag Note LastModifiedBy Organization Detail LastModifiedTime 06/18/20 25 06/18/2025 rapid SARS CoV 2 Ag, QL IA, respi rator y speci men rapid SARS CoV 2 Ag, QL IA, respiratory specimen negati ve Not Available [facility] [address], [phone] 06/18/2025 15:23:36 Result Notes None recorded. Medical Equipment None Reported. Allergies Allergen ID Allergen Name Allergen Category Reaction Reaction Severity Criticality Documentation Date Start Date Code Code System Note Provider Name and Address Organization Details Recorded Time 82362 Bactrim medicatio n Not available Not available Not available 03/02/2025 85305 9 RxNorm Not Available [facility] - production 5 12:22:12 17382 morphine medicatio n Not available Not available Not available 03/02/2025 7052 RxNorm Not Available [facility] - production 5 12:22:12 03107 shellfish derived food,medi cation Not available Not available Not available 09/28/2025 Not Available [facility] - production 5 09:38:38 Medications Name Sig Start Date Stop Date [...] Not Available Not Available No t Available pseudoephed rine ER 120 mg tablet,exte nded release Take 1 tablet every 12 hours by oral route as needed for 14 days, for nasal congestio n. 2024 active Not Available Not Available Not Avai lable omeprazole 40 mg capsule,del ayed release TAKE [...] propionate 50 mcg/actuati on nasal spray,suspe nsion 1 spray each nostril twice a day for 30 days 2024 active Not Available Not Available Not Avai lable doxycycline hyclate 100 mg tablet TAKE 1 [...] [degF] 18 /min 156/88 mm[Hg] Not Available [employer] - production 16:09:34 Date Recorded Heart rate Body temperature Respiratory rate Oxygen saturation Oxygen saturation in Arterial blood by Pulse oximetry Systolic And Diastolic Provider Name and Address Organization Details Last Updated DateTime 5 60 /min 98.9 [degF] 16 /min 98 % 98 % 146/78 mm[Hg] Not Available [employer] - 15:11:36 Date Recorded Heart rate Body temperature Respiratory rate Oxygen saturation Oxygen saturation in Arterial blood by Pulse oximetry Systolic And Diastolic Provider Name and Address Organization Details Last Updated DateTime 5 68 /min 97.9 [degF] 18 /min 99 % 99 % 142/88 mm[Hg] Not Available [employer] - 16:57:24 Date Recorded Body weight Respiratory rate Body temperature Oxygen saturation Oxygen saturation in Arterial blood by Pulse oximetry Heart rate Body height Systolic And Diastolic Provider Name and Address Organization Details Last Updated DateTime 5 28406.3 2 g 18 /min 97.8 [degF] 97 % 97 % 48 /min 175.26 cm 152/76 mm[Hg] Not Available [employer] 13:36:31 Social History None recorded. Functional Status None recorded. Mental Status None recorded. Family History Nothing Reported. Medical History No medical history recorded. Past Encounters Encounter ID Performer Location Encounter Start Date Encounter Closed Date Diagnosis/Indication Diagnosis SNOMED-CT Code Diagnosis ICD10 Code Diagnosis IMO Codes Diagnosis Note [id number] RENEA ELLIS MD [facility] [address] [place] [phone] 03/02/2025 16:09:33 03/04/2025 14:41:33 Recurrent acute frontal sinusitis [id number] J01.11 [id number] Evaluation in the field was performed by my hospital staff pharmacist colleague, as noted above, I provided real-time [...] weeks ago, for which he presented to [facility] ER and was prescribed doxycyclin [...] severe facial pain, dental pain, neck stiffness. [id number] Sharita Osborne MD [address] [phone] 06/18/2025 15:11:32 06/18/2025 21:17:45 Recurrent acute pansinusitis [id number] J01.41 [id number] Allergies and pharmacy reviewed. /Patient made aware COVID negative medic only has Augmentin 500mg will give a dose now and patient reports he can get to pharmacy later/advi sed to take full dose Augmentin with some food at bedtime tonight and then do breakfast and dinner starting tomorrow. He verbalized understand ing Suggested warm compresses for symptomati c relief Bacterial conjunctivitis [id number] H10.9 93518 Given the complaint of lid margin crusting and yellow discharge in the morning we will treat with ABX.-Patie nt cannot do trimethopr im or sulfa/eryt hromycin ointment is annoying during the day as it clouds the vision so I have prescribed ciprofloxa ashish eyedrops [id number] Sarah Solomon MD [address] [phone] 08/14/2025 16:57:13 08/14/2025 18:58:25 Bursitis of olecranon of right elbow [id number] 78192 M70.21 [id number] Ebony Manrique MD [address] [phone] 09/28/2025 13:32:24 09/30/2025 17:42:20 Acute sinusitis [id number] J01.80 [id number] Evaluation in the field was performed by my hospital staff pharmacist colleague, as noted above, I provided real-time direction and supervisio n for this visit.This is a 50yo M PMHx HTN, GERD, type 2 DM who p/w 6 days of nasal congestion without nasal discharge, cough, or fever. Mild sore throat. No sick contacts. No improvemen t with nasal saline. VS: BP 152/76 HR 48 rest wnlParamed ic exam: no sinus TTP lungs CTA b/lPOC testing: COVID and flu negative Impression : (1) acute sinusitis, likely viral, less likely bacterial or allergic (2) asymptomat ic bradycardi a likely 2/2 CCBPlan: (1) con't nasal saline, add fluticason e nasal, can trial pseudoephe drine after discussion of risks/bene fits iso HTN (has home BP cuff to monitor, red flags reviewed) and (2) PCP f/up as currently asymptomat icRed flags reviewed, pt expressed understand ing For PCP: consider further work up if not improving We discussed the diagnostic uncertaint y of home visits and the risk associated with this. In this case, the patient and I felt this to be an acceptable and reasonable amount of risk given the benefit of avoiding an ED visit. We discussed the need to seek care urgently/e mergently in the setting of any new or worsening serious symptoms, shortness of breath, cough, chest pain, fever. Health Concerns Section Related Observation LastModified by Organization Detai ls LastModified Time None Recorded Concern Status LastModified by Organization Details LastModified Time None Recorded Advance Directives Directive None Recorded Payers Insurance Date Sequence Insurance Name Policy Number Policy Hernandez Covered Member ID Hernandez Member ID Guarantor Name 09/30/2025 1 [facility] - DOS ON OR AFTER 2023 - DUAL ELIGIBLE - [employer] AND ONE [employer] (MEDICARE REPLACEMENT/ADV ANTAGE - HMO) Angel Gary [id number] Angel Gary Notes Date Note Type Note Provider Name and Address Organization Details Recorded Time 03/02/2025 text/html ROS as noted in the HPI CRC Nurse Triage Notes (Josué Woods): Reason For Request: Pt reporting a suspected sinus infection>[facility] ago>still experiencing undereye pain>under nose pressure>headache>fati samia Denies: Sudden onset of dental pain, unable to manage own secretions Nosebleed lasting longer than one hour; unable to stop bleeding Throat swelling/difficult swallowing Chief Complaints: Headache, Common Cold PMH: Gastroesophageal Reflux Disease (GERD), Diabetes Mellitus Type 2, Hypertension PMH Reviewed at 03/02/2025 - 12:22 Allergies Reviewed at 03/02/2025 12:22 Comments: Additional PMH: Chronic Sinusitis All Round Logger verified the patient's name//address and phone number. Pt calling reporting headache, fatigue, pressure under eyes and sinus congestion. Pt reports he went to [facility] ER approx 3 weeks ago [...] emergency treatment if needed -Paresh Woods RN Stenographic Court Reporter Organization Information for Obed Da Silva Business Legal Name: [employer] Address: [address] [place] [address], Metal Sorter: Tab Jimenez MD LIBIA No.: [id number] [address]enographic [address] Reporter POC Test Results from [employer] [facility] [employer] Rapid COVID antigen (16:09:00) COVID: - Attachments uploaded as part of this test result can be found under Documents section. Rapid influenza antigen (16:09:01) Flu: - Attachments uploaded as part of this test result can be found under Documents section. ...................... ...................... ...................... ...................... ...................... ...................... ......... Stenographic [address] Reporter Note From Obed Da Silva: Encountered patient conscious alert and ambulatory. Patient reports he suffers from chronic sinus infections and was seen at [facility] on 02/11/25. Patient states he completed a course of doxycycline prescribed to him by the emergency room physician on 02/18/25. Patient expresses he experienced no relief with the medication but denies recent fevers, nausea or vomiting. Covid and flu swabs performed, both resulted negative; [facility] notified. Skin warm, dry and of appropriate color for ethnicity. Head and neck free of trauma and edema. JVD. Breath sounds present clear and equal bilaterally. Abdomen is soft, nontender and non-distended. Extremities, free of trauma and edema. [facility] contacted: states they will write prescription prescriptions for antibiotics and nasal spray at patient s request to be sent to patient s pharmacy of choice. [facility] additionally encourages patient to follow up with an nuclear technician as soon as possible. Patient verbalizes understanding of the plan and is comfortable with remaining at home at this time. [facility] Lab Orders: rapid flu (A+B): Performed rapid SARS CoV 2 Ag, QL IA, respiratory specimen: Performed ...................... ...................... ...................... ...................... ...................... ...................... ......... [facility] Consulted: Renea Ellis ...................... ...................... ...................... ...................... ...................... ...................... ......... Disposition: Aleksandr ELLIS MD [address] [place] [address],[address], [place], [address], [employer]olidar [employer] 03/02/2025 16:31:32 06/18/2025 text/html [facility] Nurse Triage Notes (Nicole Eden): Reason [...] Diabetes Mellitus Type 2, HypertensionPMH Reviewed at 06/18/2025Allergies Reviewed at 06/18/2025:Comments: 50 y.o male complains of Common Cold Pain under eyes and ontop of eyebrowsMild dizzinessEye drainageDenies feverNo sick contactYellow drainage from nose at times I provided information on the mobile health provider response time and advised the patient and/or caregiver to monitor reported signs and symptoms. I discussed the warning signs of when to seek emergency care. Stenographic Court Reporter Organization Information for Mark Sahu Legal Name: [employer]. A ddress: [address] [place] [address], Medical Director: Tab Jimenez [facility] No.: [id number] [address]enographic [address] Reporter POC Test Results from Mark Sahu Rapid COVID antigen (15:07:48)COVID: - ...................... ...................... ...................... ...................... ...................... ...................... ......... Stenographic [address] Reporter Note From Mark Sahu: Dispatched to the [...] was assessed. Rapid Covid test conducted. vitals. [facility] consulted. Pt given Augmentin. Script called into preferred pharmacy. Red flags discussed. ALL times are approx. [facility] Lab Orders: rapid SARS CoV 2 Ag, QL IA, respiratory specimen: Administered [facility] Medication Orders: amoxicillin 500 mg-potassium clavulanate 125 mg tablet: Administered ...................... ...................... ...................... ...................... ...................... ...................... ......... [facility] Consulted: Sharita Osborne ...................... ...................... ...................... ...................... ...................... ...................... ......... Disposition: Fulfilled SEGMD: As above- denies visual changes/ feelslike usual sinus infection-had Augmentin and Flonase last time which helped Sharita Osborne MD [address] [facility],[address], [place], [address], ISAÍAS - [employer] 06/18/2025 19:37:33 08/14/2025 text/html HPI: Chris is [...] Morphine Sulfate. Mbr calling in from number [phone] reporting he was in the hospital and [...] INSTED and Mbr agrees. Confirmed address and phone/[phone]. Mbr denies chest pain, fever, sob or [...] Stress Disorder (PTSD) PMH Reviewed at 08/14/2025 Allergies Reviewed at 08/14/2025: Comments: HPI reviewed ...................... ...................... ...................... ...................... ...................... ...................... ......... Stenographic [address] Reporter Note From Obed Da Silva: Encountered patient [...] trauma and edema; peripheral pulses present throughout. [facility] contacted: 400mg PO Ibuprofen administered after medication rights were reconciled with patient. [facility] states they will send a prescription for further treatment to a pharmacy of patients choice. Patient was encouraged to monitor himself for chest pain, shortness of breath, fevers or worsening pain and was encouraged to seek further medical attention, including 911, if said symptoms were to develop. Patient verbalizes understanding of the plan and states he is comfortable remaining home today. [facility] Medication Orders: ibuprofen 400 mg tablet: Administered ...................... ...................... ...................... ...................... ...................... ...................... ......... [facility] Consulted: Sarah Solomon ...................... ...................... ...................... ...................... ...................... ...................... ......... Disposition: Fulfilled Sarah Solomon MD [address] [place] [address],[address], [place], [address], [employer] 08/14/2025 18:47:21 09/28/2025 text/html CRC Nurse Triage Notes (Abbie Dowd): Reason For Request: Pt reporting being sick for 6 days>stuffy nose>throat is bothering him>DENIES fever>bodyaches> Patient Reports: Cough, fever greater than 2 days ; Cough Denies: Increased work of breathing/labored with or without fever Unable to speak in full sentences without distress Discoloration of skin -cyanosis Needs to sleep sitting up, can t catch breath Shortness of breath in setting of confusion Lower extremity swelling History of asthma, increased use of inhaler COPD COVID Exposure Sputum increase Shortness of breath with exertion Pain with inspiration Chief Complaints: Common Cold, Cough PMH: Gastroesophageal Reflux Disease (GERD), Diabetes Mellitus Type 2, Hypertension, Depression, Obesity, Chronic Pain, Anxiety Disorder, Rheumatoid Arthritis, Post-Traumatic Stress Disorder (PTSD) PMH Reviewed at 09/28/2025:38 Allergies Reviewed at 09/28/2025:38 Comments: 50 y.o male complains of Common Cold Patient self referring symptoms for about a week. Had fever but no longer, endorses body aches, chills, headaches nasal congestion, sore throat and itchy throat, raspy voice. non productive nagging cough that's worse at night. He states the stuffy nose also preventing him from sleeping. Able to speak in full sentences. denies any shortness of breath or chest pain. denies any nausea/vomiting/diarrh ea endorses fatigue used nasal spray and Tylenol and these are not touching the symptoms. no known sick contacts. denies any blood thinners or kidney issues requesting [facility] assessment I provided information on the mobile health provider response time and advised the patient and/or caregiver to monitor reported signs and symptoms. I discussed the warning signs of when to seek emergency care. Stenographic Court Reporter Organization Information for Ken Amin Business Legal Name: [facility] Address: [address] [place] [address], Metal Sorter: Parish Jaquez MD CLIA No.: [id number] [address]enographic [address] Reporter POC Test Results from Ken Amin Rapid influenza antigen (14:02:54) Flu: - Rapid COVID antigen (14:02:55) COVID: - ...................... ...................... ...................... ...................... ...................... ...................... ......... [employer]enographic [address] Reporter Note From Ken Amin: 50-year-old male complaining of sinus pressure and congestion times six days with some feverish/chills episodes but currently just complaining of science congestion can barely get any air through his nostrils. Patient stated his throat hurt for a day but now is fine. Patient denies cough. No shortness of breath. Breath sounds clear and equal bilaterally. No chest pain or abdominal pain. Covid and flu test were negative. Dr. Manrique called and recommended pseudoephedrine and Flonase. Advised patient that bacterial requires 10 days and green or yellow drainage which he does not have. Patient will follow up with his primary care of further need or call us back. Patient thanked us for a visit and walked me to the door. With no problems. [facility] Lab Orders: rapid flu (A+B): Performed rapid SARS CoV 2 Ag, QL IA, respiratory specimen: Performed ...................... ...................... ...................... ...................... ...................... ...................... ......... [facility] Consulted: Ebony Manrique ...................... ...................... ...................... ...................... ...................... ...................... ......... Disposition: Fulfilled Ebony Manrique MD [address] [facility],[address], [place], [address], IS[employer] - [employer]IN WILLAMS 09/28/2025 14:19:28
--- OUTSIDE RECORDS SUMMARY | 2025-10-02 07:13 | XMS_ITS | Continuity of Care Document ---
Author Name [facility] Address [address] [place] [id number] Organization Unknown Address [address] [place] [id number] Medications No known medications Problems No known problems
--- OUTSIDE RECORDS SUMMARY | 2025-10-02 07:14 | XMS_ITS | Continuity of Care Document ---
Author Name [facility] Address [address] [place] [address] Organization Unknown Address [address] [place] [address] Medications No known medications Problems No known problems
--- OUTSIDE RECORDS SUMMARY | 2025-10-02 07:14 | XMS_ITS | Patient Health Record ---
Author Organization [facility] [place] Address [address] [place] [address] Care Team Providers Care Interlocking Installer Name Role Phone Pathak, Dipika Unavailable [phone] Juwan Szymanski Unavailable [phone] Allergies Allergen (clinical drug ingredient) Drug/Non Drug Allergy documented on EMR Reaction Allergy Type Onset Date Status benztropine Benztropine Mesylate Unknown Drug Allergy Active fish oils Fish Oil Unknown Drug Allergy Active morphine Morphine Unknown Drug Allergy Active Results Component Value Reference Range Notes HEMOGLOBIN A1C (GLYCOHEMOGLO BIN) Reviewed date:06/05/2025 09:30:14 AM Interpretation: Performing Lab: Notes/Report: HEMOGLOBIN A1C % (HH) 6.4 Reason For Referral No Information Medications Medication SIG (Take, Route, Fr equency, Duration) Notes Start Date End Date Status Ketoconazole 2 % 1 application Apply a thin layer to externally to feet, even between toes Twice a day; Duration: 30 days Active Valsartan Not-Taking Ketoconazole 2 % to feet Externally T wice a day; Duration: 21 days Active Pantoprazole Sodium Active glipiZIDE Active Immunizations Vaccine Route Administration Date Status Comme nts Influenza Unknown 06/05/2025 Refused Social History Tobacco Use: Social History [...] Problem Status W/U Status Risk Notes Problem Acquired hammer toe of right foot (2600528470981248 ) Other hammer toe(s) (acquired), right foot (M20.41) Active confirmed Problem Acquired hammer toe of left foot (7755485473257906 ) Other hammer toe(s) (acquired), left foot (M20.42) Active confirmed Problem Polyneuropathy due to type 2 diabetes mellitus (424618311) Type 2 diabetes mellitus with diabetic polyneuropathy (E11.42) Active confirmed Vital Signs Heart Rate 52 /min 01/11/2025 Blood pressure diastolic 70 mm Hg 09/26/2025 Height [id number] in 09/26/2025 Blood pressure systolic 134 mm Hg 09/26/2025 Weight 210 lbs 09/26/2025 BMI 30.13 kg/m2 09/26/2025 Procedures Procedure Date Ordered Date Performed Result Body Sit e [id number]-[id number] DYSTROPHIC NAILS ANY # 10/04/2024 N/A W2373-[id number] DYSTROPHIC NAILS ANY # 01/11/2025 N/A 39877-[id number] NAIL, 6 OR MORE 06/05/2025 N/A 55862-MVOFLDS NAIL, 6 OR MORE 09/26/2025 N/A Encounters Encounter Location Date Provider Diagnosis [address] [address] 10/04/2024 Juwan Szymanski Type 2 diabetes mellitus with diabetic polyneuropathy E11.42 and Tinea pedis of both feet B35.[address] [address] 01/11/2025 Juwan Szymanski Type 2 diabetes mellitus with diabetic polyneuropathy E11.42 and Tinea pedis of left foot B35.[address] [address] 06/05/2025 Dipika Pathak Type 2 diabetes mellitus with diabetic polyneuropathy E11.42 ; Tinea unguium B35.1 ; Other hammer toe(s) (acquired), right foot M20.41 and Other hammer toe(s) (acquired), left foot M20.[address] [address] 09/26/2025 Dipika Pathak Type 2 diabetes mellitus with diabetic polyneuropathy E11.42 ; Tinea unguium B35.1 and Tinea pedis of both feet B35.3 [facility] [address] 11/27/2024 [facility] [address] [place] [address] 12/24/2024 Juwan Szymanski [facility] [address] 01/09/2025 Juwan Szymanski [facility] [address] 01/17/2025 [facility] [address] 07/16/2025 Dipika Pathak [address] [address] 09/04/2025 Dipika Pathak Assessments Encounter Date Diagnosis (ICD Code) Assessment Notes Treatment Notes Treatment Clinical Notes Section Notes 10/04/2024 Type 2 diabetes mellitus with diabetic polyneuropathy (ICD-10 - E11.42) 10/04/2024 Tinea pedis of both feet (ICD-10 - B35.3) Application of Castilani's paint to 4th interspaces B/L 01/11/2025 Type 2 diabetes mellitus with diabetic polyneuropathy (ICD-10 - E11.42) 01/11/2025 Tinea pedis of left foot (ICD-10 - B35.3) 06/05/2025 Type 2 diabetes mellitus with diabetic polyneuropathy (ICD-10 - E11.42) 06/05/2025 Tinea unguium (ICD-10 - B35.1) 09/26/2025 Type 2 diabetes mellitus with diabetic polyneuropathy (ICD-10 - E11.42) 09/26/2025 Tinea unguium (ICD-10 - B35.1) 09/26/2025 Tinea pedis of both feet (ICD-10 - B35.3) Patient Educated with: ATHELETE .pdf (ATHELETE .pdf) 06/05/2025 Other hammer toe(s) (acquired), right foot (ICD-10 - M20.41) Patient Educated with: DIABETIC FOOT CARE INSTRUCTIONS.pd f (DIABETIC FOOT CARE INSTRUCTIONS.pd f) 06/05/2025 Other hammer toe(s) (acquired), left foot (ICD-10 - M20.42) 01/11/2025 Other 09/26/2025 Other Patient Educated with: DIABETIC FOOT CARE INSTRUCTIONS.pd f (DIABETIC FOOT CARE INSTRUCTIONS.pd f) Plan Of Treatment Pending Test Test Name Order Date [id number] NAIL, 6 OR MORE 06/05/2025 [id number] NAIL, 6 OR MORE 09/26/2025 [id number] DYSTROPHIC NAILS ANY # [id number] DYSTROPHIC NAILS ANY # Next Appt Details Provider Name:Dipika pelletier, 01/09/2026 09:00:00 AM, [address] [place] [address], [phone], Insurance Providers Payer Name Payer Address Payer Phone Subscriber Number Group Number Insured Name Patient Relationship to Insured Coverage Start Date Coverage End Date [facility] [employer] Claims [address] ABELARDO Woody [id number] Angel Gary Self - patient is the insured Medical (General) History Medical History History ICD Code Diverticulosis High Blood Pressure Reflux ( GERD) type II diabetes Surgical History Surgery Date(Month/Year) left hip replacement hernia hand
--- OUTSIDE RECORDS SUMMARY | 2025-10-02 07:14 | XMS_ITS | Encounter Summary ---
Author Organization [facility] Address [address] [facility] [address] [facility] [address] [place] [address] Encounters * CPT with Medical [facility] at [facility] on 2025-08-14 Mbr is a 50 yo male with hx of but not all inclusive of GERD, presence of left hip joint, learning disability, vertigo, MDD, DM2, Obesity, PHTN, chronic pain syndrome, gout, LT use of systemic steroids, osteochondrosis, PTSSD, MICHAEL, RA, olecranon bursitis of left elbow, and functional dyspepsia. Allergies to Bactrim and Morphine Sulfate. Mbr calling in from number [phone] reporting he was in the hospital and [...] INSTED and Mbr agrees. Confirmed address and phone/[phone]. Mbr denies chest pain, fever, sob or [...] trauma and edema; peripheral pulses present throughout. [facility] contacted: 400mg PO Ibuprofen administered after medication rights were reconciled with patient. [facility] states they will send a prescription for [...]
--- OUTSIDE RECORDS SUMMARY | 2025-10-02 07:14 | XMS_ITS | Continuity of Care Document ---
Author Name inst[facility], Medical Address [address] [place] [address] Organization Unknown Address [address] [place] [address] Medications No known medications Problems No known problems
--- OUTSIDE RECORDS SUMMARY | 2025-10-02 07:15 | XMS_ITS | Continuity of Care Document ---
[facility] Organization [facility] Address [address] [place] [address] Care Team Providers Care Cloth Covered Helmet Puller Name Role Phone HIM CCA OTHER Assessment No assessment recorded. Plan of Treatment Reminders Order Date Submit Date Provider Last Modified By Organization Details Last Modified Time Details Appointments None recorded. Lab rapid flu (A+B) 2024 [facility], [address] [place] [address], [phone] 14:19:56 rapid SARS CoV 2 Ag, QL IA, respiratory specimen 2024 [facility], [address] [place] [address], [phone] 14:19:57 Referral None recorded. Procedures None recorded. Surgeries None recorded. Imaging None recorded. Medication Orders fluticasone propionate 50 mcg/actuati on nasal spray,suspe nsion 2024 [id number], [address] [place], [address], 13:44:01 pseudoephed rine ER 120 mg tablet,exte nded release 2024 [id number], [address] [place], [address], 13:44:01 Patient TargetsNo targets recorded. Patient InstructionsNo instructions [...] Name and Address Organization Details Recorded Time 15582 Bactrim medicatio n Not available Not available Not available 03/02/2025 60994 9 RxNorm Not Available [facility] 12:22:12 72137 morphine medicatio n Not available Not available Not available 03/02/2025 7052 RxNorm Not Available [facility] 5 12:22:12 [address]30[address] shellfish derived food,medi cation Not available Not available Not available 09/28/2025 Not Available [facility] 09:38:38 Medications Name Sig [...] Available No t Available Vitals Date Recorded Body weight Respiratory rate Body temperature Oxygen saturation Oxygen saturation in Arterial blood by Pulse oximetry Heart rate Body height Systolic And Diastolic Provider Name and Address Organization Details Last Updated DateTime 5 87324.3 2 g 18 /min 97.8 [degF] 97 % 97 % 48 /min 175.26 cm 152/76 mm[Hg] Not Available [facility] - production 5 13:36:31 Social History None recorded. Functional Status None recorded. Mental Status None recorded. Family History Nothing Reported. Medical History No medical history recorded. Past Encounters Encounter ID Performer Location Encounter Start Date Encounter Closed Date Diagnosis/Indication Diagnosis SNOMED-CT Code Diagnosis ICD10 Code Diagnosis IMO Codes Diagnosis Note [id number] Ebony Manrique MD [facility] ED Medical [facility] [address] [place] [address] 09/28/2025 13:32:24 09/30/2025 17:42:20 Acute sinusitis 92986798 J01.80 [id number] Evaluation in the field was performed by my head men's golf coach colleague, as noted above, I provided real-time [...] by Organization Details LastModified Time None Recorded Payers Encounter Date Sequence Insurance Name Policy Number Policy Hernandez Covered Member ID Hernandez Member ID Guarantor Name 09/28/2025 1 [facility] - DOS ON OR AFTER 2023 - DUAL ELIGIBLE - [employer] OPT[employer] AND ONE CARE (MEDICARE REPLACEMENT/ADV ANTAGE - HMO) Angel Gary [id number] Angel Gary Notes Date Note Type Note Provider Name and Address Organization Details Recorded Time 09/28/2025 text/html CRC Nurse Triage Notes (Abbie [...] Post-Traumatic Stress Disorder (PTSD) PMH Reviewed at 09/28/2025: Allergies Reviewed at 09/28/2025:38 Comments: 50 y.o [...] signs of when to seek emergency care. Farm Assistant Organization Information for Ken Amin Business Legal Name: [facility] Address: [address] [place] [address], [place] [address], Furniture Mechanic: Parish Jaquez MD CLIA No.: [id number] Farm Assistant POC Test Results from Ken Amin Rapid influenza antigen (14:02:54) Flu: - Rapid COVID antigen (14:02:55) COVID: - ...................... ...................... ...................... ...................... ...................... ...................... ......... Farm Assistant Note From Amin Ken: 50-year-old male complaining of sinus pressure and [...] me to the door. With no problems. [facility] [place] Orders: rapid flu (A+B): Performed rapid SARS CoV 2 Ag, QL IA, respiratory specimen: Performed ...................... ...................... ...................... ...................... ...................... ...................... ......... [facility] [place] [place] Consulted: Ebony Manrique ...................... ...................... ...................... ...................... ...................... ...................... ......... Disposition: Fulfilled Ebony Manrique MD [address], [place], [address], [facility], KEVIN 09/28/2025 14:19:28
--- OUTSIDE RECORDS SUMMARY | 2025-10-02 07:16 | XMS_ITS | Patient Health Record ---
Author Organization [facility] Address [address] [place] [address] Care Team Providers Care Senior Climate Advisor Name Role Phone Da Eckert MD Primary Care Provider Xavier Rueda Unavailable [phone] Allergies Allergen (clinical drug ingredient) Drug/Non Drug Allergy documented on EMR Reaction Allergy Type Onset Date Status Bentyl Unknown Drug Allergy Active Fish Flavor Unknown Drug Allergy Activ e morphine Morphine Unknown Drug Allergy Active Reason For Referral No Information Medications Medication SIG (Take, Route, Frequency, Duration) Notes Start Date End Date Status glipiZIDE 5 MG Tablet 1 tablet 30 minute s before breakfast Orally Once a day; Duration: 30 day(s) Active Pantoprazole Sodium 40 MG Tablet Delayed Release 1 tablet Orally Once a day; Duration: 30 day(s) Active Valsartan 80 MG Tablet 1 tablet Orally O nce a day; Duration: 30 day(s) Active Immunizations Vaccine Route Administration Date Status Comme nts Influenza Unknown 04/03/2024 Refused Social History Tobacco Use: Social History Observation Description Date Details (start date - stop date) Never Smoker NA - NA Social History Drugs/Alcohol: Social Info Question Answer Notes Alcohol Screen Did you have a drink containing alcohol in the past year? No Points 0 Interpretation Negative Tobacco Use: Social Info Question Answer Notes Tobacco Use/Smoking Patient is a nonsmoker Additional Details Category Social Info Options Details Miscellaneous: Marital status: single Occupation: disabled Problems Problem Type SNOMED Code ICD Code Onset Dates Problem Status W/U Status Risk Notes Problem Abdominal bloating (362410910) Abdominal bloating (R14.0) Active confirmed Problem Gastroesophageal reflux disease without esophagitis (707557009) Gastroesophageal reflux disease without esophagitis (K21.9) Active confirmed Problem Gastroesophageal reflux disease (disorder) (942668713) Chronic GERD (K21.9) Active confirmed Encounters Encounter Location Date Provider Diagnosis [facility] [address] [place] [address] 10/10/2024 Xavier Nam Plan Of Treatment Pending Test Test Name Order Date Celiac Panel 10 04/03/2024 Future Test Test Name Order Date UPPER GI ENDOSCOPY 04/03/2024 Insurance Providers Payer Name Payer Address Payer Phone Subscriber Number Group Number Insured Name Patient Relationship to Insured Coverage Start Date Coverage End Date [facility] [place] [facility] [address] Attn Claims ABELARDO Woody [address] [id number] MARI ABRAHAM Self - patient is the insured Medical (General) History Medical History History ICD Code NIDDM HTN GERD Denies [place],CVA,Lung disease,renal disease Screening colonoscopy in Aug was negative, other than a hyperplastic polyp, with Dr. Campbell Upper endoscopy in 2020 at [facility] was negative Negative CT scan and abdominal ultrasoun d in 2020 Normal nuclear med gastric emptying stud y in 2023 Surgical History Surgery Date(Month/Year) Left hip replacement Right hand metal plate_ _Tori' disea se_ _lunate bone Umbilical hernia surgery with a mesh
--- OUTSIDE RECORDS SUMMARY | 2025-10-02 07:16 | XMS_ITS | Encounter Summary ---
Author Organization [facility] Address [address] [place] [address] Encounters * CPT with Medical [facility] at [facility] on 2025-06-18 { reasonForRequest : sinus infection [...]
--- OUTSIDE RECORDS SUMMARY | 2025-10-02 07:16 | XMS_ITS | Encounter Summary ---
Author Organization [facility] Address [address] [place] [address] Encounters * CPT with Medical instED at [facility] on 2025-09-28 { reasonForRequest : Pt reporting being sick for 6 days>stuffy nose>throat is bothering him>DENIES fever>bodyaches> , patientReports : Cough, fever greater than 2 days ; Cough , denies":[ Increased work of breathing/labored with or without fever , Unable to speak in full sentences without distress , Discoloration of skin -cyanosis , Needsto sleep sitting up, can t catch breath , Shortness of breath in setting of confusion", Lower extremity swelling , History of asthma, increased use of inhaler ,&qu ot;COPD , COVID Exposure , Sputum increase , Shortness of breath with exertion , Pain with inspiration ], chiefComplaints : Common Cold, Co ugh , pmh : Gastroesophageal Reflux Disease (GERD), Diabetes Mellitus Type 2, Hy pertension, Depression, Obesity, Chronic Pain, Anxiety Disorder, Rheumatoid Arthritis, Post-Traumatic Stress Disorder (PTSD) , allergies : Bactrim, Morphine, Shellfish Derived&quot ;, otherAllergies :null, painAssessment : , visitOutcome :& quot; , additionalComments : 50 y.o male complains of Common Cold\nPatient self referring\nsymptoms for about a week.\nHad fever but no longer, endorses body aches, chills, headaches\nnasal congestion, sore throat and itchy throat, raspy voice. non productive nagging cough that's worse at night. He states the stuffy nose also preventing him from sleeping. \nAble to speak in full sentences. denies any shortness of breath or chest pain.\ndenies any nausea/vomiting/diarrhea\nendorses fatigue\nused nasal spray and Tylenol and these are not touching the symptoms. \nno known sick contacts.\ndenies any blood thinners or kidney issues \nrequesting insted assessment \nI provided i nformation on the mobile health provider response time and advised the patient and/or caregiver to monitor reported signs and symptoms. I discussed the warning signs of when to seek emergency care."} 50-year-old male complaining of sinus pressure and congestion times six days with some feverish/chills episodes but currently just complaining of science congestion can barely get any air through hisnostrils. Patient stated his throat hurt for a day but now is fine. Patient denies cough. No shortness of breath. Breath sounds clear and equal bilaterally. No chest pain or abdominal pain. Covid andflu test were negative. Dr. Manrique called and recommended pseudoephedrine and Flonase. Advised patient that bacterial requires 10 days and green or yellow drainage which he does not have. Patient will follow up with his primary care of further need or call us back. Patient thanked us for a visit and walked me to the door. With no problems. IV_(FLUIDS_AND/OR_MEDICATION), MEDICATION_IM, ORAL_MEDICATION, POC_BLOODWORK, POC_FLU_STREP, COVID_TEST Written by Medical [facility] on 2025-09-28
== END 2025-10-01 15:04 | disposition home or self-care (01) ==
LOC: HO.HMCH 13:40
DX: I10 Essential (primary) hypertension (principal); R00.1 Bradycardia, unspecified

== ENCOUNTER → 2025-10-01 13:39 | Outpatient (BNVA) | payer OTHER, SELFPAY | DX: I10 Essential (primary) hypertension (principal); R00.1 Bradycardia, unspecified | CPT/HCPCS: 99212 ==